=== PATIENT | male | born 1960 | race Caucasian/White ===

== ENCOUNTER 2018-06-15 21:43 | Emergency (ER) | payer MEDICARE ==
--- NOTE | 2018-06-15 22:17 | EDM.PDOC ---
ED HPI GENERAL MEDICAL PROBLEM - General Chief Complaint: Neck Problem Stated Complaint: NECK PAIN Time Seen by Provider: 06/15/18 22:14 - History of Present Illness INITIAL COMMENTS - FREE TEXT/NARRATIVE: HISTORY AND PHYSICAL: History of present illness: Patient's a 58-year-old white male history chronic back pain who presents with a concern of prescription request he states he's had neck pain is worse with driving and at times travel he was recently prescribed Vicodin 2 weeks prior and has run out he is from out of town and has no local doctor is been no numbness weakness or new neurological signs or symptoms patient has had prior cervicals spine surgery and has recently had an MRI that verified stability as it relates to a titanium plate placed with prior surgery Review of systems: As per history of present illness and below otherwise all systems reviewed and negative. Past medical history: As per history of present illness and as reviewed below otherwise noncontributory. Surgical history: As per history of present illness and as reviewed below otherwise noncontributory. Social history: No reported history of drug or alcohol abuse. Family history: As per history of present illness and as reviewed below otherwise noncontributory. Physical exam: HEENT: Atraumatic, normocephalic, pupils reactive, negative for conjunctival pallor or scleral icterus, mucous membranes moist, throat clear, neck without localized tenderness no vertebral body tenderness no cervical radicular findings , trachea midline. Lungs: Clear to auscultation, breath sounds equal bilaterally, chest nontender. Heart: S1S2, regular, negative for clicks, rubs, or JVD. Abdomen: Soft, nondistended, nontender. Negative for masses or hepatosplenomegaly. Negative for costovertebral tenderness. Pelvis: Stable nontender. Genitourinary: Deferred. Rectal: Deferred. Extremities: Atraumatic, negative for cords or calf pain. Neurovascular unremarkable. Neuro: Awake, alert, oriented. Cranial nerves II through XII unremarkable. Cerebellum unremarkable. Motor and sensory unremarkable throughout. Exam nonfocal. Diagnostics: None Therapeutics: None Impression: 1 chronic neck pain Definitive disposition and diagnosis as appropriate pending reevaluation and review of above. - Related Data Allergies Allergy/AdvReac Type Severity Reaction Status Date / Time No Known Allergies Allergy Verified 06/15/18 21:56 Home Meds: Home Meds Warfarin [Coumadin] 0 mg PO DAILY 06/15/18 [History] ED ROS GENERAL - Review of Systems Review Of Systems: ROS reveals no pertinent complaints other than HPI. ED EXAM, GENERAL - Physical Exam Exam: See Below (See dictation) Departure - Departure Time of Disposition: 22:16 Disposition: Home, Self-Care 01 Condition: Good Clinical Impression: Chronic neck pain - Discharge Information *PRESCRIPTION DRUG MONITORING PROGRAM REVIEWED*: Not Applicable *COPY OF PRESCRIPTION DRUG MONITORING REPORT IN PATIENT ALEAH: Not Applicable Referrals: PCP,None [Primary Care Provider] - Additional Instructions: The following information is given to patients seen in the emergency department who are being discharged to home. This information is to outline your options for follow-up care. We provide all patients seen in our emergency department with a follow-up referral. The need for follow-up, as well as the timing and circumstances, are variable depending upon the specifics of your emergency department visit. If you don't have a primary care physician on staff, we will provide you with a referral. We always advise you to contact your personal physician following an emergency department visit to inform them of the circumstance of the visit and for follow-up with them and/or the need for any referrals to a consulting specialist. The emergency department will also refer you to a specialist when appropriate. This referral assures that you have the opportunity for followup care with a specialist. All of these measure are taken in an effort to provide you with optimal care, which includes your followup. Under all circumstances we always encourage you to contact your private physician who remains a resource for coordinating your care. When calling for followup care, please make the office aware that this follow-up is from your recent emergency room visit. If for any reason you are refused follow-up, please contact the [facility] emergency department at and asked to speak to the emergency department charge nurse. [facility] Replaced by [facility] [address] [place] [id number] Follow-up primary care and/or clinic above Motrin/Tylenol as directed return as needed as discussed
== END 2018-06-15 22:25 | disposition home or self-care (01) ==
LOC: MW.ED 21:43
DX: G89.29 Other chronic pain (principal); M54.2 Cervicalgia
CPT/HCPCS: 99282; 99283

== ENCOUNTER 2019-04-20 16:38 | Inpatient (IN) | payer MEDICARE ==
[2019-04-20] MEDS ORDERED: Sodium Chloride 0.9% 1,000 ML IV ONE (16:53)
--- NOTE | 2019-04-20 16:55 | EDM.PDOC ---
ED HPI GENERAL MEDICAL PROBLEM - General Chief Complaint: Cardiovascular Problem Stated Complaint: POSSIBLE STROKE Time Seen by Provider: 04/20/19 16:55 Source of Information: Reports: Patient - History of Present Illness INITIAL COMMENTS - FREE TEXT/NARRATIVE: HISTORY AND PHYSICAL: History of present illness: [Patient with history of stroke presents with chest pain intermittently for 2 days, on arrival blood pressure is noted to be elevated as well as A. fib with RVR no fever nausea vomiting chills sweats no current chest pain headache dizziness palpitation no bowel or urine symptoms ] Review of systems: As per history of present illness and below otherwise all systems reviewed and negative. Past medical history: As per history of present illness and as reviewed below otherwise noncontributory. Surgical history: As per history of present illness and as reviewed below otherwise noncontributory. Social history: No reported history of drug or alcohol abuse. Family history: As per history of present illness and as reviewed below otherwise noncontributory. Physical exam: HEENT: Atraumatic, normocephalic, pupils reactive, negative for conjunctival pallor or scleral icterus, mucous membranes moist, throat clear, neck supple, nontender, trachea midline. Lungs: Clear to auscultation, breath sounds equal bilaterally, chest nontender. Heart: S1S2, regular, negative for clicks, rubs, or JVD. Abdomen: Soft, nondistended, nontender. Negative for masses or hepatosplenomegaly. Negative for costovertebral tenderness. Pelvis: Stable nontender. Genitourinary: Deferred. Rectal: Deferred. Extremities: Atraumatic, negative for cords or calf pain. Neurovascular unremarkable. Neuro: Awake, alert, oriented. Cranial nerves II through XII unremarkable. Cerebellum unremarkable. Motor and sensory unremarkable throughout. Exam nonfocal. Diagnostics: [CBC CMP UA troponin INR EKG Chest 1 view ] Therapeutics: [ normal saline Lopressor 5 mg IV every [address] exam 20 mg IV ] Impression: [ A. fib with RVR Chronic history of baseline ] Definitive disposition and diagnosis as appropriate pending reevaluation and review of above. Chest Pain Score (Numeric/FACES): 5 - Related Data Allergies Allergy/AdvReac Type Severity Reaction Status Date / Time No Known Allergies Allergy Verified 04/20/19 16:57 Home Meds: Home Meds Baclofen 20 mg PO QID PRN 04/20/19 [History] Clopidogrel Bisulfate [Clopidogrel] 75 mg PO DAILY 04/20/19 [History] DULoxetine HCl [Duloxetine HCl] 1 tab PO DAILY 04/20/19 [History] Insulin Detemir [Levemir Flextouch] 16 units SQ BEDTIME 04/20/19 [History] Lisinopril/Hydrochlorothiazide [Lisinopril-Hctz 20-25 mg Tab] 1 tab PO DAILY [History] Metoprolol Tartrate 25 mg PO DAILY 04/20/19 [History] Pantoprazole Sodium 40 mg PO DAILY 04/20/19 [History] Pregabalin [Lyrica] 150 mg PO QID 04/20/19 [History] metFORMIN [Glucophage] 2 tab PO BID 04/20/19 [History] traZODone HCl [Trazodone HCl] 100 mg PO BEDTIME 04/20/19 [History] Past Medical History Cardiovascular History: Reports: Hypertension Neurological History: Reports: CVA Endocrine/Metabolic History: Reports: Diabetes, Type II Social & Family History - Family History Family Medical History: Noncontributory ED ROS GENERAL - Review of Systems Review Of Systems: See Below ED EXAM, GENERAL - Physical Exam Exam: See Below Course - Vital Signs Last Recorded V/S: Last Vital Signs Temp 96.3 F 04/20/19 16:43 Pulse 114 H 04/20/19 18:15 Resp 18 04/20/19 18:15 BP 107/80 04/20/19 18:15 Pulse Ox 95 04/20/19 18:15 - Orders/Labs/Meds Orders: Active Orders 24 hr Category Date Time Status Accu Check [Blood Glucose Check, Bedside] [RC] ONETIME Care 04/20/19 16:55 Active EKG Documentation Completion [RC] STAT Care 04/20/19 16:53 Active CULTURE BLOOD [BC] Stat Lab 04/20/19 16:55 Ordered CULTURE BLOOD [BC] Stat Lab 04/20/19 17:20 Results DRUG SCREEN, URINE [URCHEM] Stat Lab 04/20/19 17:37 Ordered UA RFX NORMA AND CULT IF INDIC [URIN] Stat Lab 04/20/19 16:53 Ordered Sodium Chloride 0.9% [Normal Saline] 1,000 ml Med 04/20/19 18:15 Active IV ASDIRECTED Blood Culture x2 Reflex Set [OM.PC] Stat Oth 04/20/19 16:55 Ordered Medication Orders Sodium Chloride (Normal Saline) 1,000 mls @ 125 mls/hr IV ASDIRECTED CHEKO Last Admin: 04/20/19 18:19 Dose: 125 mls/hr Labs: Laboratory Tests 04/20/19 04/20/19 04/20/19 Range/Units 17:03 17:03 17:03 WBC 17.07 H (4.0-11.0) K/uL RBC 4.52 (4.50-5.90) M/uL Hgb 14.3 (13.0-17.0) g/dL Hct 44.7 (38.0-50.0) % MCV 98.9 H (80.0-98.0) fL MCH 31.6 (27.0-32.0) pg MCHC 32.0 (31.0-37.0) g/dL RDW Std Deviation 53.7 (28.0-62.0) fl RDW Coeff of Dennis 15 (11.0-15.0) % Plt Count 300 (150-400) K/uL MPV 11.50 (7.40-12.00) fL Neut % (Auto) 72.9 (48.0-80.0) % Lymph % (Auto) 17.9 (16.0-40.0) % [place] % (Auto) 7.6 (0.0-15.0) % Eos % (Auto) 1.5 (0.0-7.0) % Baso % (Auto) 0.1 (0.0-1.5) % Neut # (Auto) 12.4 H (1.4-5.7) K/uL Lymph # (Auto) 3.1 H (0.6-2.4) K/uL [place] # (Auto) 1.3 H (0.0-0.8) K/uL Eos # (Auto) 0.3 (0.0-0.7) K/uL Baso # (Auto) 0.0 (0.0-0.1) K/uL Nucleated RBC % 0.0 /100WBC Nucleated RBCs # 0 K/uL INR 1.03 Sodium 139 (136-148) mmol/L Potassium 3.5 (3.5-5.1) mmol/L Chloride 103 (98-107) mmol/L Carbon Dioxide 24.4 (21.0-32.0) mmol/L BUN 18 (7.0-18.0) mg/dL Creatinine 1.2 (0.8-1.3) mg/dL Est Cr Clr Drug Dosing 73.98 mL/min Estimated GFR (MDRD) > 60.0 ml/min Glucose 272 H (74-106) mg/dL Calcium 7.9 L (8.5-10.1) mg/dL Total Bilirubin 0.4 (0.2-1.0) mg/dL AST 40 H (15-37) IU/L ALT 71 H (14-63) IU/L Alkaline Phosphatase 79 (46-116) U/L Creatine Kinase 220 (26-308) U/L Troponin I < 0.050 (0.000-0.056) ng/mL Total Protein 7.2 (6.4-8.2) g/dL Albumin 3.0 L (3.4-5.0) g/dL Globulin 4.2 H (2.6-4.0) g/dL Albumin/Globulin Ratio 0.7 L (0.9-1.6) Meds: Medications Generic Name Dose Route Start Last Admin Trade Name Freq PRN Reason Stop Dose Admin Sodium Chloride 1,000 mls @ 125 mls/hr 04/20/19 18:15 04/20/19 18:19 Normal Saline IV 125 mls/hr ASDIRECTED CHEKO Administration Discontinued Medications Generic Name Dose Route Start Last Admin Trade Name Freq PRN Reason Stop Dose Admin Diltiazem HCl 20 mg 04/20/19 17:23 04/20/19 17:30 Diltiazem IVPUSH 04/20/19 17:24 20 mg ONETIME ONE Administration Diltiazem HCl Confirm 04/20/19 17:25 04/20/19 17:36 Diltiazem Administered 04/20/19 17:26 Not Given Dose 25 mg .ROUTE .STK-MED ONE Sodium Chloride 1,000 mls @ 999 mls/hr 04/20/19 16:53 04/20/19 17:07 Normal Saline IV 04/20/19 17:53 999 mls/hr STAT ONE Administration Insulin Human Regular 5 unit 04/20/19 18:26 Novolin R SUBCUT 04/20/19 18:27 NOW STA Protocol Metoprolol Tartrate 5 mg 04/20/19 17:00 04/20/19 17:15 Lopressor IVPUSH 04/20/19 17:11 5 mg Q5M CHEKO Administration Departure - Departure Time of Disposition: 18:29 Disposition: Refer to Observation Condition: Fair Clinical Impression: Atrial fibrillation with RVR Referrals: PCP,None [Primary Care Provider] - Forms: ED Department Discharge - My Orders Last 24 Hours: My Active Orders 04/20/19 16:53 EKG Documentation Completion [RC] STAT UA RFX NORMA AND CULT IF INDIC [URIN] Stat 04/20/19 16:55 Accu Check [Blood Glucose Check, Bedside] [RC] ONETIME CULTURE BLOOD [BC] Stat Blood Culture x2 Reflex Set [OM.PC] Stat 04/20/19 17:20 CULTURE BLOOD [BC] Stat 04/20/19 17:37 DRUG SCREEN, URINE [URCHEM] Stat 04/20/19 18:15 Sodium Chloride 0.9% [Normal Saline] 1,000 ml IV ASDIRECTED - Assessment/Plan Last 24 Hours: My Active Orders 04/20/19 16:53 EKG Documentation Completion [RC] STAT UA RFX NORMA AND CULT IF INDIC [URIN] Stat 04/20/19 16:55 Accu Check [Blood Glucose Check, Bedside] [RC] ONETIME CULTURE BLOOD [BC] Stat Blood Culture x2 Reflex Set [OM.PC] Stat 04/20/19 17:20 CULTURE BLOOD [BC] Stat 04/20/19 17:37 DRUG SCREEN, URINE [URCHEM] Stat 04/20/19 18:15 Sodium Chloride 0.9% [Normal Saline] 1,000 ml IV ASDIRECTED
[2019-04-20] MEDS: Metoprolol Tartrate 5 MG/5 ML SDV IVPUSH SCH ×3 (17:07→21:08)
[2019-04-20] MEDS ORDERED: Diltiazem 25 MG/5 ML SDV IVPUSH ONE ×2 (17:23→18:54)
--- NOTE | 2019-04-20 17:24 | CR ---
HISTORY: Chest pain and shortness of breath. TECHNIQUE: One view of the chest. COMPARISON: No prior. FINDINGS: There is no acute lung infiltrate or pulmonary edema. No pneumothorax or pleural effusion. Cardiac size within normal limits. Prior cervical fusion. IMPRESSION: No acute disease. Dictated by Harry Kowalski MD @ 04/20/2019 5:23:03 PM Dictated by: Harry Kowalski MD @ 04/20/2019 17:23:09 (Electronically Signed)
[2019-04-20] MEDS ORDERED: Diltiazem 25 MG/5 ML SDV ONE (17:25)
[2019-04-20 18:01] LABS: CHLORIDE,CL 103 mmol/L (98-107); SODIUM,NA 139 mmol/L (136-148)
[2019-04-20] MEDS: Sodium Chloride 0.9% 1,000 ML IV SCH (18:19)
[2019-04-20] MEDS ORDERED: Insulin Regular, Human 100 Units/ML 10 ML Vial SUBCUT STA (18:26)
[2019-04-20] MEDS ORDERED: Pantoprazole 40 MG Tab.CR PO SCH (21:00)
[2019-04-20] MEDS: Insulin Detemir 100 Units/ML 3 ML Pen SUBCUT SCH (21:45)
[2019-04-20] MEDS: Pregabalin 75 MG Cap PO SCH (21:46)
[2019-04-20] MEDS: Baclofen 10 MG Tab PO PRN (21:46)
[2019-04-20] MEDS: atorvaSTATin 40 MG Tab PO SCH (21:46)
[2019-04-20] MEDS: traZODone 50 MG Tab PO SCH (21:47)
[2019-04-20] MEDS: Pantoprazole 40 MG Tab.CR PO SCH (22:06)
[2019-04-20] MEDS: Apixaban 5 MG Tab PO SCH (23:11)
[2019-04-20] MEDS: Diltiazem 25 MG/5 ML SDV IVPUSH PRN (23:12)
--- NOTE | 2019-04-20 23:43 | PCM.HP ---
H&P History of Present Illness - General Date of Service: 04/20/19 Admit Problem/Dx: Admission Diagnosis/Problem Admission Diagnosis/Problem Atrial fibrillation - History of Present Illness Initial Comments - Free Text/Narative: 58 yo male with past medical history of CVA, NM, and DM who presents with chest pain for past two days. Patient reports chest pain as a burn that worsens when he takes a deep breath. He reports a chronic cough that is unchanged for past year. He denies any fevers. He reports palpitations, shortness of breath, and lightheadedness. Family reported that he look pale at home. He smokes tobacco and marijuana. In the ED he was noted to be in atrial fibrillaiton with heart rate of 150s. It did slow down initially to 100s with IV diltiazem. Patient denies any history of atrial fibrillation but was recently switched to Eliquis this month from plavix but is not sure why. He reports three strokes this past year. Chest Pain Score (Numeric/FACES): 5 - Related Data Allergies/Adverse Reactions: Allergies Allergy/AdvReac Type Severity Reaction Status Date / Time bee venom protein (honey bee) Allergy Anaphylactic Verified 04/20/19 20:00 Shock Home Medications: Home Meds Apixaban [Eliquis] 04/20/19 [History] Baclofen 20 mg PO QID PRN 04/20/19 [History] Clopidogrel Bisulfate [Clopidogrel] 75 mg PO DAILY 04/20/19 [History] DULoxetine HCl [Duloxetine HCl] 1 tab PO DAILY 04/20/19 [History] Insulin Detemir [Levemir Flextouch] 16 units SQ BEDTIME 04/20/19 [History] Lisinopril/Hydrochlorothiazide [Lisinopril-Hctz 20-25 mg Tab] 1 tab PO DAILY [History] Metoprolol Tartrate 25 mg PO DAILY 04/20/19 [History] Pantoprazole Sodium 40 mg PO DAILY 04/20/19 [History] Pregabalin [Lyrica] 150 mg PO QID 04/20/19 [History] metFORMIN [Glucophage] 2 tab PO BID 04/20/19 [History] traZODone HCl [Trazodone HCl] 100 mg PO BEDTIME 04/20/19 [History] Past Medical History Cardiovascular History: Reports: Blood Clots/VTE/DVT, CAD, Hypertension Respiratory History: Reports: COPD Gastrointestinal History: Reports: Bowel Obstruction, GERD, Other (See Below) Other Gastrointestinal History: Intestinal rupture Musculoskeletal History: Reports: Back Pain, Chronic, Fracture Neurological History: Reports: CVA Other Neuro History: 3 strokes in the last 1.5 years Psychiatric History: Reports: Anxiety, Depression Endocrine/Metabolic History: Reports: Diabetes, Type II - Infectious Disease History Infectious Disease History: Reports: Chicken Pox - Past Surgical History Cardiovascular Surgical History: Reports: None GI Surgical History: Reports: Colonoscopy, Small Bowel Musculoskeletal Surgical History: Reports: Other (See Below) Other Musculoskeletal Surgeries/Procedures:: 6 back surgeries, 2 neck surgeries , titanium plate in neck, titanium plate in lower back Social & Family History - Family History Family Medical History: Noncontributory - Tobacco Use Smoking Status *Q: Current Every Day Smoker Years of Tobacco use: 48 Packs/Tins Daily: 1 Second Hand Smoke Exposure: No - Caffeine Use Caffeine Use: Reports: Coffee, Soda - Recreational Drug Use Recreational Drug Use: Yes Drug Use in Last 12 Months: Yes Recreational Drug Type: Reports: Marijuana/Hashish Recreational Drug Use Frequency: Daily H&P Review of Systems - Review of Systems: Review Of Systems: ROS reveals no pertinent complaints other than HPI. Exam - Exam Exam: See Below - Vital Signs Vital Signs: Last Vital Signs Temp 35.8 C 04/20/19 19:37 Pulse 65 04/20/19 19:37 Resp 18 04/20/19 19:37 BP 107/70 04/20/19 19:37 Pulse Ox 94 L 04/20/19 22:33 Weight: 106.141 kg - Exam General: Alert, Oriented HEENT: Mucosa Moist & [place] Lungs: Clear to Auscultation, Normal Respiratory Effort Cardiovascular: Irregular Rhythm, Tachycardia GI/Abdominal Exam: Soft, Non-Tender Extremities: Normal Inspection, Non-Tender, No Pedal Edema Skin: Warm, Dry, Intact Neurological: Cranial Nerves Intact. No: Focal Deficit - Patient Data Lab Results Last 24 hrs: Laboratory Results - last 24 hr 04/20/19 04/20/19 04/20/19 Range/Units 17:03 17:03 17:03 WBC 17.07 H (4.0-11.0) K/uL RBC 4.52 (4.50-5.90) M/uL Hgb 14.3 (13.0-17.0) g/dL Hct 44.7 (38.0-50.0) % MCV 98.9 H (80.0-98.0) fL MCH 31.6 (27.0-32.0) pg MCHC 32.0 (31.0-37.0) g/dL RDW Std Deviation 53.7 (28.0-62.0) fl RDW Coeff of Dennis 15 (11.0-15.0) % Plt Count 300 (150-400) K/uL MPV 11.50 (7.40-12.00) fL Neut % (Auto) 72.9 (48.0-80.0) % Lymph % (Auto) 17.9 (16.0-40.0) % [place] % (Auto) 7.6 (0.0-15.0) % Eos % (Auto) 1.5 (0.0-7.0) % Baso % (Auto) 0.1 (0.0-1.5) % Neut # (Auto) 12.4 H (1.4-5.7) K/uL Lymph # (Auto) 3.1 H (0.6-2.4) K/uL [place] # (Auto) 1.3 H (0.0-0.8) K/uL Eos # (Auto) 0.3 (0.0-0.7) K/uL Baso # (Auto) 0.0 (0.0-0.1) K/uL Nucleated RBC % 0.0 /100WBC Nucleated RBCs # 0 K/uL INR 1.03 Sodium 139 (136-148) mmol/L Potassium 3.5 (3.5-5.1) mmol/L Chloride 103 (98-107) mmol/L Carbon Dioxide 24.4 (21.0-32.0) mmol/L BUN 18 (7.0-18.0) mg/dL Creatinine 1.2 (0.8-1.3) mg/dL Est Cr Clr Drug Dosing 73.98 mL/min Estimated GFR (MDRD) > 60.0 ml/min Glucose 272 H (74-106) mg/dL POC Glucose (60-110) mg/dL Calcium 7.9 L (8.5-10.1) mg/dL Total Bilirubin 0.4 (0.2-1.0) mg/dL AST 40 H (15-37) IU/L ALT 71 H (14-63) IU/L Alkaline Phosphatase 79 (46-116) U/L Creatine Kinase 220 (26-308) U/L Troponin I < 0.050 (0.000-0.056) ng/mL Total Protein 7.2 (6.4-8.2) g/dL Albumin 3.0 L (3.4-5.0) g/dL Globulin 4.2 H (2.6-4.0) g/dL Albumin/Globulin Ratio 0.7 L (0.9-1.6) 04/20/19 04/20/19 Range/Units 18:33 20:55 WBC (4.0-11.0) K/uL RBC (4.50-5.90) M/uL Hgb (13.0-17.0) g/dL Hct (38.0-50.0) % MCV (80.0-98.0) fL MCH (27.0-32.0) pg MCHC (31.0-37.0) g/dL RDW Std Deviation (28.0-62.0) fl RDW Coeff of Dennis (11.0-15.0) % Plt Count (150-400) K/uL MPV (7.40-12.00) fL Neut % (Auto) (48.0-80.0) % Lymph % (Auto) (16.0-40.0) % [place] % (Auto) (0.0-15.0) % Eos % (Auto) (0.0-7.0) % Baso % (Auto) (0.0-1.5) % Neut # (Auto) (1.4-5.7) K/uL Lymph # (Auto) (0.6-2.4) K/uL [place] # (Auto) (0.0-0.8) K/uL Eos # (Auto) (0.0-0.7) K/uL Baso # (Auto) (0.0-0.1) K/uL Nucleated RBC % /100WBC Nucleated RBCs # K/uL INR Sodium (136-148) mmol/L Potassium (3.5-5.1) mmol/L Chloride (98-107) mmol/L Carbon Dioxide (21.0-32.0) mmol/L BUN (7.0-18.0) mg/dL Creatinine (0.8-1.3) mg/dL Est Cr Clr Drug Dosing mL/min Estimated GFR (MDRD) ml/min Glucose (74-106) mg/dL POC Glucose 182 H 113 H (60-110) mg/dL Calcium (8.5-10.1) mg/dL Total Bilirubin (0.2-1.0) mg/dL AST (15-37) IU/L ALT (14-63) IU/L Alkaline Phosphatase (46-116) U/L Creatine Kinase (26-308) U/L Troponin I (0.000-0.056) ng/mL Total Protein (6.4-8.2) g/dL Albumin (3.4-5.0) g/dL Globulin (2.6-4.0) g/dL Albumin/Globulin Ratio (0.9-1.6) Result Diagrams: 04/22/19 05:40 04/22/19 05:40 [place]am Results Last 24 hrs: Microbiology 04/20/19 17:20 Anaerobic Blood Culture - Final Blood - Venous Problem List Initiated/Reviewed/Updated: Yes Orders Last 24hrs: Active Orders 24 hr Category Date Time Status Admission Status [Patient Status] [ADT] Stat ADT 04/20/19 18:31 Active Accu Check [Blood Glucose Check, Bedside] [RC] TIDMEALS Care 04/20/19 19:53 Active Cardiac Monitoring [RC] . DIRECTED Care 04/20/19 23:22 Active EKG Documentation Completion [RC] STAT Care 04/20/19 16:53 Active Oxygen Therapy [RC] ASDIRECTED Care 04/20/19 22:33 Active ADA Diabetic [[place] [employer] Diet] [DIET Diet 04/21/19 Breakfast Active ] CULTURE BLOOD [BC] Stat Lab 04/20/19 17:20 Results CULTURE BLOOD [BC] Stat Lab 04/20/19 18:27 Received DRUG SCREEN, URINE [URCHEM] Stat Lab 04/20/19 17:37 Ordered UA RFX PAYAM AND CULT IF INDIC [URIN] Stat Lab 04/20/19 16:53 Ordered Apixaban [Eliquis] Med 04/20/19 23:00 Active 5 mg PO BID Baclofen [Lioresal] Med 04/20/19 20:34 Active 20 mg PO QID PRN DULoxetine [Cymbalta] Med 04/21/19 09:00 Active 60 mg PO DAILY Diltiazem Med 04/20/19 22:07 Active 10 mg IVPUSH Q3HR PRN Diltiazem 125 mg Med 04/20/19 23:45 Ordered Sodium Chloride 0.9% [Normal Saline] 100 ml IV NOW Insulin Aspart [NovoLOG] Med 04/21/19 07:30 Active See Protocol SUBCUT TIDAC Insulin Detemir [Levemir] Med 04/20/19 21:00 Active 16 unit SUBCUT BEDTIME Metoprolol Succinate [Toprol XL] Med 04/21/19 09:00 Active 50 mg PO DAILY Pantoprazole [ProTONIX] Med 04/20/19 21:45 Active 40 mg PO DAILY Pregabalin [Lyrica] Med 04/20/19 22:00 Active 150 mg PO QID QUEtiapine [SEROquel] Med 04/20/19 21:00 Active 50 mg PO BEDTIME Sodium Chloride 0.9% [Normal Saline] 1,000 ml Med 04/20/19 18:15 Active IV ASDIRECTED atorvaSTATin [Lipitor] Med 04/20/19 21:00 Active 80 mg PO BEDTIME metFORMIN [Glucophage] Med 04/21/19 08:00 Active 1,000 mg PO BIDMEALS traZODone Med 04/20/19 21:00 Active 100 mg PO BEDTIME Blood Culture x2 Reflex Set [OM.PC] Stat Oth 04/20/19 16:55 Ordered Medication Orders Apixaban (Eliquis) 5 mg PO BID [facility] Last Admin: 04/20/19 23:11 Dose: 5 mg Atorvastatin Calcium (Lipitor) 80 mg PO BEDTIME CHEKO Last Admin: 04/20/19 21:46 Dose: 80 mg Baclofen (Lioresal) 20 mg PO QID PRN PRN Reason: Muscle Spasm Last Admin: 04/20/19 21:46 Dose: 20 mg Diltiazem HCl (Diltiazem) 10 mg IVPUSH Q3HR PRN PRN Reason: for heart rate >100 Last Admin: 04/20/19 23:12 Dose: 10 mg Duloxetine HCl (Cymbalta) 60 mg PO DAILY [facility] Sodium Chloride (Normal Saline) 1,000 mls @ 125 mls/hr IV ASDIRECTED [facility] Last Admin: 04/20/19 18:19 Dose: 125 mls/hr Diltiazem HCl 125 mg/ Sodium (Chloride) 125 mls @ 5 mls/hr IV NOW CHEKO; Protocol Insulin Aspart (Novolog) 0 unit SUBCUT TIDAC [facility]; Protocol Insulin Detemir (Levemir) 16 unit SUBCUT BEDTIME [facility] Last Admin: 04/20/19 21:45 Dose: 16 units Metformin HCl (Glucophage) 1,000 mg PO BIDMEALS [facility] Metoprolol Succinate (Toprol Xl) 50 mg PO DAILY [facility] Pantoprazole Sodium (Protonix) 40 mg PO DAILY [facility] Last Admin: 04/20/19 22:06 Dose: 40 mg Pregabalin (Lyrica) 150 mg PO QID [facility] Last Admin: 04/20/19 21:46 Dose: 150 mg Quetiapine Fumarate (Seroquel) 50 mg PO BEDTIME [facility] Last Admin: 04/20/19 23:11 Dose: 50 mg Trazodone HCl (Trazodone) 100 mg PO BEDTIME [facility] Last Admin: 04/20/19 21:47 Dose: 100 mg Assessment/Plan Comment:: 58 yo male admitted with atrial fibrillation with RVR. We will place on diltiazem drip. Will resume his metoprolol which he is noncompliant with at home. We will also trend cardiac enzymes. Patient has an unexplained white count but does not appear infected. UA has been ordered.
[2019-04-20] MEDS ORDERED: Diltiazem 100 MG in Sodium Chloride 0.9% 100 ML IV SCH (23:45)
[2019-04-21] MEDS: Pregabalin 75 MG Cap PO SCH ×4 (01:03→17:50)
[2019-04-21 07:08] LABS: CHLORIDE,CL 106 mmol/L (98-107); SODIUM,NA 141 mmol/L (136-148)
[2019-04-21] MEDS: Insulin Aspart 100 Units/ML 3 ML Pen SUBCUT SCH ×3 (07:59→17:39)
[2019-04-21] MEDS ORDERED: metFORMIN 500 MG Tab.ER PO SCH (08:00)
[2019-04-21] MEDS: metFORMIN 500 MG Tab PO SCH ×2 (08:00→17:53)
[2019-04-21] MEDS ORDERED: metFORMIN 500 MG Tab PO SCH (08:00)
[2019-04-21] MEDS: Apixaban 5 MG Tab PO SCH ×2 (08:00→20:09)
[2019-04-21] MEDS: DULoxetine 60 MG Cap PO SCH (08:00)
[2019-04-21] MEDS: Pantoprazole 40 MG Tab.CR PO SCH (08:05)
[2019-04-21] MEDS ORDERED: Metoprolol Tartrate 25 MG Tab PO SCH (09:00)
[2019-04-21] MEDS ORDERED: Lisinopril/Hydrochlorothiazide 10-12.5 MG Tab PO SCH (09:00)
[2019-04-21] MEDS ORDERED: Metoprolol Succinate 50 MG Tab.ER PO SCH ×2 (09:00→21:00)
[2019-04-21] MEDS ORDERED: Nicotine Polacrilex 4 MG Gum CHEW PRN (09:15)
[2019-04-21] MEDS ORDERED: Digoxin 500 MCG/2 ML Amp IVPUSH ONE ×3 (10:37→21:00)
--- NOTE | 2019-04-21 10:38 | PCM.PN ---
- General Info Date of Service: 04/21/19 - Review of Systems Systems Review Comment:: patient feeling better. - Patient Data Vitals - Most Recent: Last Vital Signs Temp 36.5 C 04/21/19 08:00 Pulse 107 H 04/21/19 10:00 Resp 13 04/21/19 10:00 BP 110/86 04/21/19 10:00 Pulse Ox 94 L 04/21/19 10:00 Weight - Most Recent: 104.6 kg I&O - Last 24 Hours: Intake & Output 04/20/19 04/21/19 04/21/19 22:59 06:59 14:59 Intake Total 120 1506 Output Total 200 Balance 120 1306 Lab Results Last 24 Hours: Laboratory Results - last 24 hr 04/20/19 04/20/19 04/20/19 Range/Units 00:00 00:00 00:36 WBC (4.0-11.0) K/uL RBC (4.50-5.90) M/uL Hgb (13.0-17.0) g/dL Hct (38.0-50.0) % MCV (80.0-98.0) fL MCH (27.0-32.0) pg MCHC (31.0-37.0) g/dL RDW Std Deviation (28.0-62.0) fl RDW Coeff of [place] (11.0-15.0) % Plt Count (150-400) K/uL MPV (7.40-12.00) fL Neut % (Auto) (48.0-80.0) % Lymph % (Auto) (16.0-40.0) % [place] % (Auto) (0.0-15.0) % Eos % (Auto) (0.0-7.0) % Baso % (Auto) (0.0-1.5) % Neut # (Auto) (1.4-5.7) K/uL Lymph # (Auto) (0.6-2.4) K/uL [place] # (Auto) (0.0-0.8) K/uL Eos # (Auto) (0.0-0.7) K/uL Baso # (Auto) (0.0-0.1) K/uL Nucleated RBC % /100WBC Nucleated RBCs # K/uL INR Sodium (136-148) mmol/L Potassium (3.5-5.1) mmol/L Chloride (98-107) mmol/L Carbon Dioxide (21.0-32.0) mmol/L BUN (7.0-18.0) mg/dL Creatinine (0.8-1.3) mg/dL Est Cr Clr Drug Dosing mL/min Estimated GFR (MDRD) ml/min Glucose (74-106) mg/dL POC Glucose (60-110) mg/dL Calcium (8.5-10.1) mg/dL Magnesium (1.8-2.4) mg/dL Total Bilirubin (0.2-1.0) mg/dL AST (15-37) IU/L ALT (14-63) IU/L Alkaline Phosphatase (46-116) U/L Creatine Kinase (26-308) U/L Troponin I < 0.050 (0.000-0.056) ng/mL Total Protein (6.4-8.2) g/dL Albumin (3.4-5.0) g/dL Globulin (2.6-4.0) g/dL Albumin/Globulin Ratio (0.9-1.6) Urine Color YELLOW Urine Appearance CLEAR Urine pH 6.0 (5.0-8.0) Ur Specific [place] >= 1.030 (1.001-1.035) Urine Protein 100 H (NEGATIVE) mg/dL Urine Glucose (UA) NEGATIVE (NEGATIVE) mg/dL Urine Ketones NEGATIVE (NEGATIVE) mg/dL Urine Occult Blood NEGATIVE (NEGATIVE) Urine Nitrite NEGATIVE (NEGATIVE) Urine Bilirubin NEGATIVE (NEGATIVE) Urine Urobilinogen 4.0 H (<2.0) EU/dL Ur Leukocyte Esterase NEGATIVE (NEGATIVE) Urine RBC 0-1 (0-2/HPF) Urine WBC 0-1 (0-5/HPF) Ur Epithelial Cells RARE (NONE-FEW) Urine Bacteria RARE (NEGATIVE) Urine Opiates Screen NEGATIVE (NEGATIVE) Ur Oxycodone Screen NEGATIVE (NEGATIVE) Urine Methadone Screen NEGATIVE (NEGATIVE) Ur Barbiturates Screen NEGATIVE (NEGATIVE) Ur Phencyclidine Scrn NEGATIVE (NEGATIVE) Ur Amphetamine Screen NEGATIVE (NEGATIVE) U Methamphetamines Scrn POSITIVE (NEGATIVE) U Benzodiazepines Scrn NEGATIVE (NEGATIVE) U Cocaine Metab Screen NEGATIVE (NEGATIVE) U Marijuana (THC) Screen POSITIVE (NEGATIVE) 04/20/19 04/20/19 04/20/19 Range/Units 17:03 17:03 17:03 WBC 17.07 H (4.0-11.0) K/uL RBC 4.52 (4.50-5.90) M/uL Hgb 14.3 (13.0-17.0) g/dL Hct 44.7 (38.0-50.0) % MCV 98.9 H (80.0-98.0) fL MCH 31.6 (27.0-32.0) pg MCHC 32.0 (31.0-37.0) g/dL RDW Std Deviation 53.7 (28.0-62.0) fl RDW Coeff of [place] 15 (11.0-15.0) % Plt Count 300 (150-400) K/uL MPV 11.50 (7.40-12.00) fL Neut % (Auto) 72.9 (48.0-80.0) % Lymph % (Auto) 17.9 (16.0-40.0) % [place] % (Auto) 7.6 (0.0-15.0) % Eos % (Auto) 1.5 (0.0-7.0) % Baso % (Auto) 0.1 (0.0-1.5) % Neut # (Auto) 12.4 H (1.4-5.7) K/uL Lymph # (Auto) 3.1 H (0.6-2.4) K/uL [place] # (Auto) 1.3 H (0.0-0.8) K/uL Eos # (Auto) 0.3 (0.0-0.7) K/uL Baso # (Auto) 0.0 (0.0-0.1) K/uL Nucleated RBC % 0.0 /100WBC Nucleated RBCs # 0 K/uL INR 1.03 Sodium 139 (136-148) mmol/L Potassium 3.5 (3.5-5.1) mmol/L Chloride 103 (98-107) mmol/L Carbon Dioxide 24.4 (21.0-32.0) mmol/L BUN 18 (7.0-18.0) mg/dL Creatinine 1.2 (0.8-1.3) mg/dL Est Cr Clr Drug Dosing 73.98 mL/min Estimated GFR (MDRD) > 60.0 ml/min Glucose 272 H (74-106) mg/dL POC Glucose (60-110) mg/dL Calcium 7.9 L (8.5-10.1) mg/dL Magnesium (1.8-2.4) mg/dL Total Bilirubin 0.4 (0.2-1.0) mg/dL AST 40 H (15-37) IU/L ALT 71 H (14-63) IU/L Alkaline Phosphatase 79 (46-116) U/L Creatine Kinase 220 (26-308) U/L Troponin I < 0.050 (0.000-0.056) ng/mL Total Protein 7.2 (6.4-8.2) g/dL Albumin 3.0 L (3.4-5.0) g/dL Globulin 4.2 H (2.6-4.0) g/dL Albumin/Globulin Ratio 0.7 L (0.9-1.6) Urine Color Urine Appearance Urine pH (5.0-8.0) Ur Specific [place] (1.001-1.035) Urine Protein (NEGATIVE) mg/dL Urine Glucose (UA) (NEGATIVE) mg/dL Urine Ketones (NEGATIVE) mg/dL Urine Occult Blood (NEGATIVE) Urine Nitrite (NEGATIVE) Urine Bilirubin (NEGATIVE) Urine Urobilinogen (<2.0) EU/dL Ur Leukocyte Esterase (NEGATIVE) Urine RBC (0-2/HPF) Urine WBC (0-5/HPF) Ur Epithelial Cells (NONE-FEW) Urine Bacteria (NEGATIVE) Urine Opiates Screen (NEGATIVE) Ur Oxycodone Screen (NEGATIVE) Urine Methadone Screen (NEGATIVE) Ur Barbiturates Screen (NEGATIVE) Ur Phencyclidine Scrn (NEGATIVE) Ur Amphetamine Screen (NEGATIVE) U Methamphetamines Scrn (NEGATIVE) U Benzodiazepines Scrn (NEGATIVE) U Cocaine Metab Screen (NEGATIVE) U Marijuana (THC) Screen (NEGATIVE) 04/20/19 04/20/19 04/21/19 Range/Units 18:33 20:55 00:58 WBC (4.0-11.0) K/uL RBC (4.50-5.90) M/uL Hgb (13.0-17.0) g/dL Hct (38.0-50.0) % MCV (80.0-98.0) fL MCH (27.0-32.0) pg MCHC (31.0-37.0) g/dL RDW Std Deviation (28.0-62.0) fl RDW Coeff of [place] (11.0-15.0) % Plt Count (150-400) K/uL MPV (7.40-12.00) fL Neut % (Auto) (48.0-80.0) % Lymph % (Auto) (16.0-40.0) % [place] % (Auto) (0.0-15.0) % Eos % (Auto) (0.0-7.0) % Baso % (Auto) (0.0-1.5) % Neut # (Auto) (1.4-5.7) K/uL Lymph # (Auto) (0.6-2.4) K/uL [place] # (Auto) (0.0-0.8) K/uL Eos # (Auto) (0.0-0.7) K/uL Baso # (Auto) (0.0-0.1) K/uL Nucleated RBC % /100WBC Nucleated RBCs # K/uL INR Sodium (136-148) mmol/L Potassium (3.5-5.1) mmol/L Chloride (98-107) mmol/L Carbon Dioxide (21.0-32.0) mmol/L BUN (7.0-18.0) mg/dL Creatinine (0.8-1.3) mg/dL Est Cr Clr Drug Dosing mL/min Estimated GFR (MDRD) ml/min Glucose (74-106) mg/dL POC Glucose 182 H 113 H 157 H (60-110) mg/dL Calcium (8.5-10.1) mg/dL Magnesium (1.8-2.4) mg/dL Total Bilirubin (0.2-1.0) mg/dL AST (15-37) IU/L ALT (14-63) IU/L Alkaline Phosphatase (46-116) U/L Creatine Kinase (26-308) U/L Troponin I (0.000-0.056) ng/mL Total Protein (6.4-8.2) g/dL Albumin (3.4-5.0) g/dL Globulin (2.6-4.0) g/dL Albumin/Globulin Ratio (0.9-1.6) Urine Color Urine Appearance Urine pH (5.0-8.0) Ur Specific [place] (1.001-1.035) Urine Protein (NEGATIVE) mg/dL Urine Glucose (UA) (NEGATIVE) mg/dL Urine Ketones (NEGATIVE) mg/dL Urine Occult Blood (NEGATIVE) Urine Nitrite (NEGATIVE) Urine Bilirubin (NEGATIVE) Urine Urobilinogen (<2.0) EU/dL Ur Leukocyte Esterase (NEGATIVE) Urine RBC (0-2/HPF) Urine WBC (0-5/HPF) Ur Epithelial Cells (NONE-FEW) Urine Bacteria (NEGATIVE) Urine Opiates Screen (NEGATIVE) Ur Oxycodone Screen (NEGATIVE) Urine Methadone Screen (NEGATIVE) Ur Barbiturates Screen (NEGATIVE) Ur Phencyclidine Scrn (NEGATIVE) Ur Amphetamine Screen (NEGATIVE) U Methamphetamines Scrn (NEGATIVE) U Benzodiazepines Scrn (NEGATIVE) U Cocaine Metab Screen (NEGATIVE) U Marijuana (THC) Screen (NEGATIVE) 04/21/19 04/21/19 04/21/19 Range/Units 06:30 06:30 06:30 WBC 11.78 H (4.0-11.0) K/uL RBC 4.58 (4.50-5.90) M/uL Hgb 14.4 (13.0-17.0) g/dL Hct 44.9 (38.0-50.0) % MCV 98.0 (80.0-98.0) fL MCH 31.4 (27.0-32.0) pg MCHC 32.1 (31.0-37.0) g/dL RDW Std Deviation 54.4 (28.0-62.0) fl RDW Coeff of [place] 15 (11.0-15.0) % Plt Count 181 (150-400) K/uL MPV 11.10 (7.40-12.00) fL Neut % (Auto) (48.0-80.0) % Lymph % (Auto) (16.0-40.0) % [place] % (Auto) (0.0-15.0) % Eos % (Auto) (0.0-7.0) % Baso % (Auto) (0.0-1.5) % Neut # (Auto) (1.4-5.7) K/uL Lymph # (Auto) (0.6-2.4) K/uL [place] # (Auto) (0.0-0.8) K/uL Eos # (Auto) (0.0-0.7) K/uL Baso # (Auto) (0.0-0.1) K/uL Nucleated RBC % 0.0 /100WBC Nucleated RBCs # 0 K/uL INR Sodium 141 (136-148) mmol/L Potassium 4.2 (3.5-5.1) mmol/L Chloride 106 (98-107) mmol/L Carbon Dioxide 25.7 (21.0-32.0) mmol/L BUN 15 (7.0-18.0) mg/dL Creatinine 0.7 L (0.8-1.3) mg/dL Est Cr Clr Drug Dosing 126.83 mL/min Estimated GFR (MDRD) > 60.0 ml/min Glucose 168 H (74-106) mg/dL POC Glucose (60-110) mg/dL Calcium 7.7 L (8.5-10.1) mg/dL Magnesium (1.8-2.4) mg/dL Total Bilirubin 0.4 (0.2-1.0) mg/dL AST 48 H (15-37) IU/L ALT 72 H (14-63) IU/L Alkaline Phosphatase 79 (46-116) U/L Creatine Kinase (26-308) U/L Troponin I < 0.050 (0.000-0.056) ng/mL Total Protein 6.1 L (6.4-8.2) g/dL Albumin 2.9 L (3.4-5.0) g/dL Globulin 3.2 (2.6-4.0) g/dL Albumin/Globulin Ratio 0.9 (0.9-1.6) Urine Color Urine Appearance Urine pH (5.0-8.0) Ur Specific [place] (1.001-1.035) Urine Protein (NEGATIVE) mg/dL Urine Glucose (UA) (NEGATIVE) mg/dL Urine Ketones (NEGATIVE) mg/dL Urine Occult Blood (NEGATIVE) Urine Nitrite (NEGATIVE) Urine Bilirubin (NEGATIVE) Urine Urobilinogen (<2.0) EU/dL Ur Leukocyte Esterase (NEGATIVE) Urine RBC (0-2/HPF) Urine WBC (0-5/HPF) Ur Epithelial Cells (NONE-FEW) Urine Bacteria (NEGATIVE) Urine Opiates Screen (NEGATIVE) Ur Oxycodone Screen (NEGATIVE) Urine Methadone Screen (NEGATIVE) Ur Barbiturates Screen (NEGATIVE) Ur Phencyclidine Scrn (NEGATIVE) Ur Amphetamine Screen (NEGATIVE) U Methamphetamines Scrn (NEGATIVE) U Benzodiazepines Scrn (NEGATIVE) U Cocaine Metab Screen (NEGATIVE) U Marijuana (THC) Screen (NEGATIVE) 04/21/19 04/21/19 Range/Units 06:30 07:46 WBC (4.0-11.0) K/uL RBC (4.50-5.90) M/uL Hgb (13.0-17.0) g/dL Hct (38.0-50.0) % MCV (80.0-98.0) fL MCH (27.0-32.0) pg MCHC (31.0-37.0) g/dL RDW Std Deviation (28.0-62.0) fl RDW Coeff of [place] (11.0-15.0) % Plt Count (150-400) K/uL MPV (7.40-12.00) fL Neut % (Auto) (48.0-80.0) % Lymph % (Auto) (16.0-40.0) % [place] % (Auto) (0.0-15.0) % Eos % (Auto) (0.0-7.0) % Baso % (Auto) (0.0-1.5) % Neut # (Auto) (1.4-5.7) K/uL Lymph # (Auto) (0.6-2.4) K/uL [place] # (Auto) (0.0-0.8) K/uL Eos # (Auto) (0.0-0.7) K/uL Baso # (Auto) (0.0-0.1) K/uL Nucleated RBC % /100WBC Nucleated RBCs # K/uL INR Sodium (136-148) mmol/L Potassium (3.5-5.1) mmol/L Chloride (98-107) mmol/L Carbon Dioxide (21.0-32.0) mmol/L BUN (7.0-18.0) mg/dL Creatinine (0.8-1.3) mg/dL Est Cr Clr Drug Dosing mL/min Estimated GFR (MDRD) ml/min Glucose (74-106) mg/dL POC Glucose 192 H (60-110) mg/dL Calcium (8.5-10.1) mg/dL Magnesium 2.3 (1.8-2.4) mg/dL Total Bilirubin (0.2-1.0) mg/dL AST (15-37) IU/L ALT (14-63) IU/L Alkaline Phosphatase (46-116) U/L Creatine Kinase (26-308) U/L Troponin I (0.000-0.056) ng/mL Total Protein (6.4-8.2) g/dL Albumin (3.4-5.0) g/dL Globulin (2.6-4.0) g/dL Albumin/Globulin Ratio (0.9-1.6) Urine Color Urine Appearance Urine pH (5.0-8.0) Ur Specific [place] (1.001-1.035) Urine Protein (NEGATIVE) mg/dL Urine Glucose (UA) (NEGATIVE) mg/dL Urine Ketones (NEGATIVE) mg/dL Urine Occult Blood (NEGATIVE) Urine Nitrite (NEGATIVE) Urine Bilirubin (NEGATIVE) Urine Urobilinogen (<2.0) EU/dL Ur Leukocyte Esterase (NEGATIVE) Urine RBC (0-2/HPF) Urine WBC (0-5/HPF) Ur Epithelial Cells (NONE-FEW) Urine Bacteria (NEGATIVE) Urine Opiates Screen (NEGATIVE) Ur Oxycodone Screen (NEGATIVE) Urine Methadone Screen (NEGATIVE) Ur Barbiturates Screen (NEGATIVE) Ur Phencyclidine Scrn (NEGATIVE) Ur Amphetamine Screen (NEGATIVE) U Methamphetamines Scrn (NEGATIVE) U Benzodiazepines Scrn (NEGATIVE) U Cocaine Metab Screen (NEGATIVE) U Marijuana (THC) Screen (NEGATIVE) [place] Results Last 24 Hours: Microbiology 04/20/19 17:20 Anaerobic Blood Culture - Final Blood - Venous Med Orders - Current: Current Medications Apixaban (Eliquis) 5 mg PO BID [facility]KO Last Admin: 04/21/19 08:00 Dose: 5 mg Atorvastatin Calcium (Lipitor) 80 mg PO BEDTIME [facility]KO Last Admin: 04/20/19 21:46 Dose: 80 mg Baclofen (Lioresal) 20 mg PO QID PRN PRN Reason: Muscle Spasm Last Admin: 04/20/19 21:46 Dose: 20 mg Diltiazem HCl (Diltiazem) 10 mg IVPUSH Q3HR PRN PRN Reason: for heart rate >100 Last Admin: 04/20/19 23:12 Dose: 10 mg Duloxetine HCl (Cymbalta) 60 mg PO DAILY [facility] Last Admin: 04/21/19 08:00 Dose: 60 mg Sodium Chloride (Normal Saline) 1,000 mls @ 125 mls/hr IV ASDIRECTED [facility] Last Admin: 04/20/19 18:19 Dose: 125 mls/hr Diltiazem HCl 100 mg/ Sodium (Chloride) 100 mls @ 5 mls/hr IV TITRATE [facility]; Protocol Amiodarone HCl/Dextrose (Nexterone In Dextrose 360 Mg/200 Ml) 360 mg in 200 mls @ 16.667 mls/hr IV ASDIRECTED [facility]; Protocol Last Admin: 04/21/19 06:53 Dose: 0.5 mg/min, 16.667 mls/hr Insulin Aspart (Novolog) 0 unit SUBCUT TIDAC [facility]; Protocol Last Admin: 04/21/19 07:59 Dose: 2 units Insulin Detemir (Levemir) 16 unit SUBCUT BEDTIME [facility] Last Admin: 04/20/19 21:45 Dose: 16 units Metformin HCl (Glucophage) 1,000 mg PO BIDMEALS [facility] Last Admin: 04/21/19 08:00 Dose: 1,000 mg Metoprolol Succinate (Toprol Xl) 50 mg PO BID [facility] Nicotine (Habitrol) 21 mg TRDERM DAILY [facility] Pantoprazole Sodium (Protonix) 40 mg PO DAILY [facility] Last Admin: 04/21/19 08:05 Dose: 40 mg Pregabalin (Lyrica) 150 mg PO QID [facility] Last Admin: 04/21/19 05:42 Dose: 150 mg Quetiapine Fumarate (Seroquel) 50 mg PO BEDTIME [facility] Last Admin: 04/20/19 23:11 Dose: 50 mg Trazodone HCl (Trazodone) 100 mg PO BEDTIME [facility] Last Admin: 04/20/19 21:47 Dose: 100 mg Discontinued Medications Diltiazem HCl (Diltiazem) 20 mg IVPUSH ONETIME ONE Stop: 04/20/19 17:24 Last Admin: 04/20/19 17:30 Dose: 20 mg Diltiazem HCl (Diltiazem) Confirm Administered Dose 25 mg .ROUTE .STK-MED ONE Stop: 04/20/19 17:26 Last Admin: 04/20/19 17:36 Dose: Not Given Diltiazem HCl (Diltiazem) 20 mg IVPUSH ONETIME ONE Stop: 04/20/19 18:55 Last Admin: 04/20/19 18:59 Dose: 20 mg Lisinopril/HCTZ (Lisinopril-Hctz 10-12.5 Mg) 2 tab PO DAILY [facility] Sodium Chloride (Normal Saline) 1,000 mls @ 999 mls/hr IV STAT ONE Stop: 04/20/19 17:53 Last Admin: 04/20/19 17:07 Dose: 999 mls/hr Amiodarone HCl/Dextrose (Nexterone In Dextrose 150 Mg/100 Ml) 100 mls @ 600 mls /hr IV ONETIME ONE; Protocol Stop: 04/21/19 00:37 Last Admin: 04/21/19 00:39 Dose: 600 mls/hr Amiodarone HCl/Dextrose (Nexterone In Dextrose 360 Mg/200 Ml) 360 mg in 200 mls @ 33.333 mls/hr IV ASDIRECTED [facility]; Protocol Last Admin: 04/21/19 00:49 Dose: 1 mg/min, 33.333 mls/hr Insulin Human Regular (Novolin R) 5 unit SUBCUT NOW STA; Protocol Stop: 04/20/19 18:27 Last Admin: 04/20/19 18:37 Dose: Not Given Metformin HCl (Glucophage) 500 mg PO BIDMEALS [facility] Metformin HCl (Glucophage Xr) 1,000 mg PO BIDMEALS [facility] Metoprolol Succinate (Toprol Xl) 50 mg PO DAILY [facility] Last Admin: 04/21/19 08:00 Dose: 50 mg Metoprolol Tartrate (Lopressor) 5 mg IVPUSH Q5M [facility] Stop: 04/20/19 17:11 Last Admin: 04/20/19 21:08 Dose: Not Given Metoprolol Tartrate (Lopressor) 25 mg PO DAILY [facility] Pantoprazole Sodium (Protonix) 20 mg PO DAILY [facility] Last Admin: 04/20/19 21:57 Dose: Not Given - Exam General: Alert, Oriented Lungs: Clear to Auscultation, Normal Respiratory Effort Cardiovascular: Irregular Rhythm, Tachycardia GI/Abdominal Exam: Soft, Non-Tender Extremities: Non-Tender, No Pedal Edema Skin: Warm, Dry, Intact Neurological: No New Focal Deficit - Problem List Review Problem List Initiated/Reviewed/Updated: Yes - My Orders Last 24 Hours: My Active Orders 04/20/19 19:53 Accu Check [Blood Glucose Check, Bedside] [RC] TIDMEALS 04/20/19 20:34 Baclofen [Lioresal] 20 mg PO QID PRN 04/20/19 21:00 Insulin Detemir [Levemir] 16 unit SUBCUT BEDTIME QUEtiapine [SEROquel] 50 mg PO BEDTIME atorvaSTATin [Lipitor] 80 mg PO BEDTIME traZODone 100 mg PO BEDTIME 04/20/19 21:45 Pantoprazole [ProTONIX] 40 mg PO DAILY 04/20/19 22:00 Pregabalin [Lyrica] 150 mg PO QID 04/20/19 22:07 Diltiazem 10 mg IVPUSH Q3HR PRN 04/20/19 23:00 Apixaban [Eliquis] 5 mg PO BID 04/20/19 23:22 Cardiac Monitoring [RC] Q8H 04/20/19 23:38 Oxygen Therapy [RC] PRN VTE/DVT Education [RC] PER UNIT ROUTINE Vital Signs [RC] Q1H Resuscitation Status Routine 04/20/19 23:39 Antiembolic Devices [RC] PER UNIT ROUTINE Sequential Compression Device [OM.PC] Per Unit Routine 04/20/19 23:45 Diltiazem [Cardizem] 100 mg Sodium Chloride 0.9% [Normal Saline] 100 ml IV TITRATE 04/21/19 00:01 Transfer Patient (Change bed) [ADT] Routine 04/21/19 00:03 Admission Status [Patient Status] [ADT] Routine 04/21/19 06:50 Amiodarone In Dextrose,Iso-Osm [Nexterone in Dextrose 360 MG/200 ML] 360 mg in 200 ml IV ASDIRECTED 04/21/19 07:30 Insulin Aspart [NovoLOG] See Protocol SUBCUT TIDAC 04/21/19 08:00 metFORMIN [Glucophage] 1,000 mg PO BIDMEALS 04/21/19 09:00 DULoxetine [Cymbalta] 60 mg PO DAILY 04/21/19 10:37 Digoxin [Lanoxin] 250 mcg IVPUSH ONETIME ONE 04/21/19 21:00 Metoprolol Succinate [Toprol XL] 50 mg PO BID 04/21/19 Breakfast ADA Diabetic [[place] [employer] Diet] [DIET] - Plan Plan:: 58 yo male admitted with atrial fibrillation with RVR. A.fib with RVR: due to hypotension have started amiodarone drip will continue metoprolol and Eliquis, will continue to monitor blood pressure. Patient tested positive for meth but denies it use. DM: on levemir and ssi
[2019-04-21] MEDS: Nicotine 21 MG/24 Hr Patch TRDERM SCH (12:16)
[2019-04-21] MEDS: Sodium Chloride 0.9% 1,000 ML IV SCH (16:12)
[2019-04-21] MEDS ORDERED: LORazepam 2 MG/ML SDV IVPUSH PRN ×2 (16:18→17:15)
[2019-04-21] MEDS: Diltiazem 25 MG/5 ML SDV IVPUSH PRN (16:43)
[2019-04-21] MEDS: Albuterol/Ipratropium 3.0-0.5 MG/3 ML Neb Soln NEB PRN (17:06)
[2019-04-21] MEDS ORDERED: Sodium Chloride 0.9% 500 ML IV SCH (17:45)
[2019-04-21] MEDS: Thiamine 100 MG Tab PO SCH (17:50)
[2019-04-21] MEDS: Folic Acid 1 MG Tab PO SCH (17:50)
--- NOTE | 2019-04-21 19:10 | CR ---
Indication: Shortness breath. Hypertension. Technique: A single AP portable view of the chest was obtained. Comparison: April 20, 2019. Findings: The heart is normal in size. Increased interstitial opacities are identified bilaterally, greater on the left than the right. No pleural effusion or pneumothorax is identified. Impression: Increasing interstitial opacities bilaterally. Dictated by Kalee Cronin MD @ Apr 21 2019 7:05PM Signed by Dr. Kalee Cronin @ Apr 21 2019 7:08PM
[2019-04-21] MEDS ORDERED: Furosemide 40 MG/4 ML VIAL IVPUSH ONE (19:39)
[2019-04-21 19:40] LABS: CHLORIDE,CL 106 mmol/L (98-107); SODIUM,NA 138 mmol/L (136-148)
[2019-04-21] MEDS: LORazepam 2 MG/ML SDV IVPUSH PRN ×2 (19:47→22:14)
[2019-04-21] MEDS ORDERED: Levofloxacin/Dextrose 5%-Water 750 MG in Premix Bag 1 BAG IV SCH (20:00)
[2019-04-21] MEDS: atorvaSTATin 40 MG Tab PO SCH (20:09)
[2019-04-21] MEDS: traZODone 50 MG Tab PO SCH (20:09)
--- NOTE | 2019-04-21 20:45 | PCM.SN ---
- Free Text/Narrative Note: Patient reports some increasing shortness of breath. He has been diaphoretic and slightly agitated this evening but his has improved with ativan. Patient denies any alcohol use. He has a history of meth and opiod abuse in the past but denies current usage. Son is in the room and mentions he has been giving his father Kratom daily to help with his energy. Patient may be having withdrawing from Kratom. We will continue Ativan prn. CXR shows bilateral infiltrates. He does have some edema in the buttocks. We will give lasix and stop maintenance fluids. I will start levaquin for possible pneumonia. We will try to get his medical records from his hospitalization in [place].
[2019-04-21] MEDS: Insulin Detemir 100 Units/ML 3 ML Pen SUBCUT SCH (22:01)
[2019-04-22] MEDS ORDERED: Haloperidol Lactate 2 MG/ML Oral Soln 15 ML Bottle PO SCH
[2019-04-22] MEDS ORDERED: oxyCODONE ER 10 MG TAB.ER PO SCH
[2019-04-22] MEDS ORDERED: Morphine Oral Concentrate 20 MG/ML 30 ML Bottle PO SCH
[2019-04-22] MEDS ORDERED: Hyoscyamine 0.125 MG Tab.SL SL SCH
[2019-04-22] MEDS: Pregabalin 75 MG Cap PO SCH ×3 (00:55→20:24)
[2019-04-22] MEDS: LORazepam 2 MG/ML SDV IVPUSH PRN ×3 (01:43→21:04)
[2019-04-22] MEDS ORDERED: Diltiazem IR 30 MG Tab PO SCH ×2 (04:00→19:00)
[2019-04-22 06:12] LABS: CHLORIDE,CL 106 mmol/L (98-107); SODIUM,NA 142 mmol/L (136-148)
[2019-04-22] MEDS: metFORMIN 500 MG Tab PO SCH ×2 (08:43→17:11)
[2019-04-22] MEDS: Apixaban 5 MG Tab PO SCH ×2 (08:43→20:25)
[2019-04-22] MEDS: DULoxetine 60 MG Cap PO SCH (08:43)
[2019-04-22] MEDS: Pantoprazole 40 MG Tab.CR PO SCH (08:43)
[2019-04-22] MEDS: Insulin Aspart 100 Units/ML 3 ML Pen SUBCUT SCH ×3 (08:49→19:19)
[2019-04-22] MEDS: Metoprolol Succinate 50 MG Tab.ER PO SCH ×2 (08:55→20:26)
[2019-04-22] MEDS: Nicotine 21 MG/24 Hr Patch TRDERM SCH (08:55)
[2019-04-22] MEDS: Albuterol/Ipratropium 3.0-0.5 MG/3 ML Neb Soln NEB PRN ×2 (09:08→15:37)
[2019-04-22] MEDS ORDERED: Digoxin 500 MCG/2 ML Amp IVPUSH ONE (09:44)
[2019-04-22] MEDS ORDERED: Amiodarone 200 MG Tab PO SCH (11:30)
[2019-04-22] MEDS: Digoxin 125 MCG Tab PO SCH (11:50)
[2019-04-22] MEDS ORDERED: MVI, Adult with Vitamin K 10 ML, Thiamine 100 MG, Folic Acid 1 MG in Sodium Chloride 0.... IV ONE ×4 (13:20)
--- NOTE | 2019-04-22 13:21 | PCM.PN ---
- General Info Date of Service: 04/22/19 - Review of Systems Systems Review Comment:: feeling better after Ativan given, slept well - Patient Data Vitals - Most Recent: Last Vital Signs Temp 36.0 C 04/22/19 12:00 Pulse 147 H 04/22/19 13:00 Resp 19 04/22/19 13:00 BP 67/44 L 04/22/19 13:00 Pulse Ox 91 L 04/22/19 13:00 Weight - Most Recent: 104.2 kg I&O - Last 24 Hours: Intake & Output 04/21/19 04/22/19 04/22/19 22:59 06:59 14:59 Intake Total 2117 1034 Output Total 700 3870 Balance 1417 -2836 Lab Results Last 24 Hours: Laboratory Results - last 24 hr 04/21/19 04/21/19 04/21/19 Range/Units 17:27 19:15 19:15 WBC 11.42 H (4.0-11.0) K/uL RBC 4.53 (4.50-5.90) M/uL Hgb 14.4 (13.0-17.0) g/dL Hct 44.5 (38.0-50.0) % MCV 98.2 H (80.0-98.0) fL MCH 31.8 (27.0-32.0) pg MCHC 32.4 (31.0-37.0) g/dL RDW Std Deviation 53.9 (28.0-62.0) fl RDW Coeff of Dennis 15 (11.0-15.0) % Plt Count 243 (150-400) K/uL MPV 10.80 (7.40-12.00) fL Neut % (Auto) (48.0-80.0) % Lymph % (Auto) (16.0-40.0) % [place]atte % (Auto) (0.0-15.0) % Eos % (Auto) (0.0-7.0) % Baso % (Auto) (0.0-1.5) % Neut # (Auto) (1.4-5.7) K/uL Lymph # (Auto) (0.6-2.4) K/uL Platte # (Auto) (0.0-0.8) K/uL Eos # (Auto) (0.0-0.7) K/uL Baso # (Auto) (0.0-0.1) K/uL Neutrophils % (Manual) 66 (48.0-80.0) % Lymphocytes % (Manual) 27 (16.0-40.0) % Monocytes % (Manual) 6 (0.0-15.0) % Eosinophils % (Manual) 1 (0.0-7.0) % Nucleated RBC % 0.0 /100WBC Absolute Seg Neuts 7.5 H (1.4-5.7) Lymphocytes # (Manual) 3.1 H (0.6-2.4) Monocytes # (Manual) 0.7 (0.0-0.8) Eosinophils # (Manual) 0.1 (0.0-0.7) Nucleated RBCs # K/uL Lactate (0.20-2.00) mmol/L Sodium 138 (136-148) mmol/L Potassium 4.4 (3.5-5.1) mmol/L Chloride 106 (98-107) mmol/L Carbon Dioxide 25.1 (21.0-32.0) mmol/L BUN 14 (7.0-18.0) mg/dL Creatinine 1.0 (0.8-1.3) mg/dL Est Cr Clr Drug Dosing 88.78 mL/min Estimated GFR (MDRD) > 60.0 ml/min Glucose 155 H (74-106) mg/dL POC Glucose 147 H (60-110) mg/dL Calcium 8.4 L (8.5-10.1) mg/dL Total Bilirubin (0.2-1.0) mg/dL AST (15-37) IU/L ALT (14-63) IU/L Alkaline Phosphatase (46-116) U/L Total Protein (6.4-8.2) g/dL Albumin (3.4-5.0) g/dL Globulin (2.6-4.0) g/dL Albumin/Globulin Ratio (0.9-1.6) 04/21/19 04/21/19 04/22/19 Range/Units 19:15 22:06 05:40 WBC 10.75 (4.0-11.0) K/uL RBC 4.42 L (4.50-5.90) M/uL Hgb 13.6 (13.0-17.0) g/dL Hct 43.0 (38.0-50.0) % MCV 97.3 (80.0-98.0) fL MCH 30.8 (27.0-32.0) pg MCHC 31.6 (31.0-37.0) g/dL RDW Std Deviation 52.0 (28.0-62.0) fl RDW Coeff of Dennis 15 (11.0-15.0) % Plt Count 249 (150-400) K/uL MPV 10.60 (7.40-12.00) fL Neut % (Auto) 60.6 (48.0-80.0) % Lymph % (Auto) 26.0 (16.0-40.0) % [place]atte % (Auto) 10.0 (0.0-15.0) % Eos % (Auto) 3.2 (0.0-7.0) % Baso % (Auto) 0.2 (0.0-1.5) % Neut # (Auto) 6.5 H (1.4-5.7) K/uL Lymph # (Auto) 2.8 H (0.6-2.4) K/uL Platte # (Auto) 1.1 H (0.0-0.8) K/uL Eos # (Auto) 0.3 (0.0-0.7) K/uL Baso # (Auto) 0.0 (0.0-0.1) K/uL Neutrophils % (Manual) (48.0-80.0) % Lymphocytes % (Manual) (16.0-40.0) % Monocytes % (Manual) (0.0-15.0) % Eosinophils % (Manual) (0.0-7.0) % Nucleated RBC % 0.2 /100WBC Absolute Seg Neuts (1.4-5.7) Lymphocytes # (Manual) (0.6-2.4) Monocytes # (Manual) (0.0-0.8) Eosinophils # (Manual) (0.0-0.7) Nucleated RBCs # 0 K/uL Lactate 1.2 (0.20-2.00) mmol/L Sodium (136-148) mmol/L Potassium (3.5-5.1) mmol/L Chloride (98-107) mmol/L Carbon Dioxide (21.0-32.0) mmol/L BUN (7.0-18.0) mg/dL Creatinine (0.8-1.3) mg/dL Est Cr Clr Drug Dosing mL/min Estimated GFR (MDRD) ml/min Glucose (74-106) mg/dL POC Glucose 149 H (60-110) mg/dL Calcium (8.5-10.1) mg/dL Total Bilirubin (0.2-1.0) mg/dL AST (15-37) IU/L ALT (14-63) IU/L Alkaline Phosphatase (46-116) U/L Total Protein (6.4-8.2) g/dL Albumin (3.4-5.0) g/dL Globulin (2.6-4.0) g/dL Albumin/Globulin Ratio (0.9-1.6) 04/22/19 04/22/19 04/22/19 Range/Units 05:40 07:57 11:59 WBC (4.0-11.0) K/uL RBC (4.50-5.90) M/uL Hgb (13.0-17.0) g/dL Hct (38.0-50.0) % MCV (80.0-98.0) fL MCH (27.0-32.0) pg MCHC (31.0-37.0) g/dL RDW Std Deviation (28.0-62.0) fl RDW Coeff of Dennis (11.0-15.0) % Plt Count (150-400) K/uL MPV (7.40-12.00) fL Neut % (Auto) (48.0-80.0) % Lymph % (Auto) (16.0-40.0) % [place] % (Auto) (0.0-15.0) % Eos % (Auto) (0.0-7.0) % Baso % (Auto) (0.0-1.5) % Neut # (Auto) (1.4-5.7) K/uL Lymph # (Auto) (0.6-2.4) K/uL [place] # (Auto) (0.0-0.8) K/uL Eos # (Auto) (0.0-0.7) K/uL Baso # (Auto) (0.0-0.1) K/uL Neutrophils % (Manual) (48.0-80.0) % Lymphocytes % (Manual) (16.0-40.0) % Monocytes % (Manual) (0.0-15.0) % Eosinophils % (Manual) (0.0-7.0) % Nucleated RBC % /100WBC Absolute Seg Neuts (1.4-5.7) Lymphocytes # (Manual) (0.6-2.4) Monocytes # (Manual) (0.0-0.8) Eosinophils # (Manual) (0.0-0.7) Nucleated RBCs # K/uL Lactate (0.20-2.00) mmol/L Sodium 142 (136-148) mmol/L Potassium 3.9 (3.5-5.1) mmol/L Chloride 106 (98-107) mmol/L Carbon Dioxide 30.0 (21.0-32.0) mmol/L BUN 18 (7.0-18.0) mg/dL Creatinine 0.9 (0.8-1.3) mg/dL Est Cr Clr Drug Dosing 98.64 mL/min Estimated GFR (MDRD) > 60.0 ml/min Glucose 111 H (74-106) mg/dL POC Glucose 96 127 H (60-110) mg/dL Calcium 8.4 L (8.5-10.1) mg/dL Total Bilirubin 0.3 (0.2-1.0) mg/dL AST 25 (15-37) IU/L ALT 56 (14-63) IU/L Alkaline Phosphatase 72 (46-116) U/L Total Protein 6.2 L (6.4-8.2) g/dL Albumin 2.6 L (3.4-5.0) g/dL Globulin 3.6 (2.6-4.0) g/dL Albumin/Globulin Ratio 0.7 L (0.9-1.6) Payam Results Last 24 Hours: Microbiology 04/20/19 18:27 Aerobic Blood Culture - Preliminary Blood - Venous - Lab Draw NO GROWTH AFTER 1 DAY Anaerobic Blood Culture - Preliminary NO GROWTH AFTER 1 DAY 04/20/19 17:20 Aerobic Blood Culture - Preliminary Blood - Venous NO GROWTH AFTER 1 DAY Anaerobic Blood Culture - Final Med Orders - Current: Current Medications Albuterol/Ipratropium (Duoneb 3.0-0.5 Mg/3 Ml) 3 ml NEB Q4HRRT PRN PRN Reason: Wheezing Last Admin: 04/22/19 09:08 Dose: 3 ml Amiodarone HCl (Cordarone) 200 mg PO DAILY [facility] Last Admin: 04/22/19 11:50 Dose: 200 mg Apixaban (Eliquis) 5 mg PO BID [facility] Last Admin: 04/22/19 08:43 Dose: 5 mg Atorvastatin Calcium (Lipitor) 80 mg PO BEDTIME [facility] Last Admin: 04/21/19 20:09 Dose: 80 mg Baclofen (Lioresal) 20 mg PO QID PRN PRN Reason: Muscle Spasm Last Admin: 04/20/19 21:46 Dose: 20 mg Digoxin (Lanoxin) 125 mcg PO DAILY [facility] Last Admin: 04/22/19 11:50 Dose: 125 mcg Folic Acid (Folic Acid) 1 mg PO BEDTIME [facility] Last Admin: 04/21/19 17:50 Dose: 1 mg Sodium Chloride (Normal Saline) 1,000 mls @ 125 mls/hr IV ASDIRECTED [facility] Last Admin: 04/21/19 16:12 Dose: 125 mls/hr Amiodarone HCl/Dextrose (Nexterone In Dextrose 360 Mg/200 Ml) 360 mg in 200 mls @ 16.667 mls/hr IV ASDIRECTED [facility]; Protocol Last Admin: 04/21/19 18:03 Dose: 0.5 mg/min, 16.667 mls/hr Sodium Chloride (Normal Saline) 500 mls @ 500 mls/hr IV .BOLUS [facility] Last Admin: 04/21/19 18:06 Dose: 500 mls/hr Insulin Aspart (Novolog) 0 unit SUBCUT TIDAC [facility]; Protocol Last Admin: 04/22/19 12:01 Dose: Not Given Insulin Detemir (Levemir) 16 unit SUBCUT BEDTIME [facility] Last Admin: 04/21/19 22:01 Dose: 16 units Lorazepam (Ativan) 1 mg IVPUSH Q2H PRN PRN Reason: anxiety,agitation, CIWAA Last Admin: 04/22/19 01:43 Dose: 1 mg Metformin HCl (Glucophage) 1,000 mg PO BIDMEALS [facility] Last Admin: 04/22/19 08:43 Dose: 1,000 mg Metoprolol Succinate (Toprol Xl) 25 mg PO BID [facility] Last Admin: 04/22/19 08:55 Dose: 25 mg Nicotine (Habitrol) 21 mg TRDERM DAILY [facility] Last Admin: 04/22/19 08:55 Dose: 21 mg Pantoprazole Sodium (Protonix) 40 mg PO DAILY [facility] Last Admin: 04/22/19 08:43 Dose: 40 mg Pregabalin (Lyrica) 150 mg PO BID [facility] Quetiapine Fumarate (Seroquel) 50 mg PO BEDTIME [facility] Last Admin: 04/21/19 20:09 Dose: 50 mg Thiamine HCl (Vitamin B-1) 100 mg PO BEDTIME [facility] Last Admin: 04/21/19 17:50 Dose: 100 mg Trazodone HCl (Trazodone) 100 mg PO BEDTIME [facility] Last Admin: 04/21/19 20:09 Dose: 100 mg Discontinued Medications Digoxin (Lanoxin) 250 mcg IVPUSH ONETIME ONE Stop: 04/21/19 10:38 Last Admin: 04/21/19 12:14 Dose: 250 mcg Digoxin (Lanoxin) 250 mcg IVPUSH ONETIME ONE Stop: 04/21/19 17:41 Last Admin: 04/21/19 18:03 Dose: 250 mcg Digoxin (Lanoxin) 250 mcg IVPUSH ONETIME ONE Stop: 04/21/19 21:01 Last Admin: 04/21/19 20:28 Dose: 250 mcg Digoxin (Lanoxin) 250 mcg IVPUSH ONETIME ONE Stop: 04/22/19 09:45 Last Admin: 04/22/19 11:50 Dose: 250 mcg Diltiazem HCl (Diltiazem) 20 mg IVPUSH ONETIME ONE Stop: 04/20/19 17:24 Last Admin: 04/20/19 17:30 Dose: 20 mg Diltiazem HCl (Diltiazem) Confirm Administered Dose 25 mg .ROUTE .STK-MED ONE Stop: 04/20/19 17:26 Last Admin: 04/20/19 17:36 Dose: Not Given Diltiazem HCl (Diltiazem) 20 mg IVPUSH ONETIME ONE Stop: 04/20/19 18:55 Last Admin: 04/20/19 18:59 Dose: 20 mg Diltiazem HCl (Diltiazem) 10 mg IVPUSH Q3HR PRN PRN Reason: for heart rate >100 Last Admin: 04/21/19 16:43 Dose: 10 mg Diltiazem HCl (Cardizem) 30 mg PO Q6HR [facility] Last Admin: 04/22/19 05:14 Dose: 30 mg Duloxetine HCl (Cymbalta) 60 mg PO DAILY [facility] Last Admin: 04/22/19 08:43 Dose: 60 mg Furosemide (Lasix) 40 mg IVPUSH NOW ONE Stop: 04/21/19 19:40 Last Admin: 04/21/19 20:03 Dose: 40 mg Lisinopril/HCTZ (Lisinopril-Hctz 10-12.5 Mg) 2 tab PO DAILY [facility] Sodium Chloride (Normal Saline) 1,000 mls @ 999 mls/hr IV STAT ONE Stop: 04/20/19 17:53 Last Admin: 04/20/19 17:07 Dose: 999 mls/hr Diltiazem HCl 100 mg/ Sodium (Chloride) 100 mls @ 5 mls/hr IV TITRATE [facility]; Protocol Amiodarone HCl/Dextrose (Nexterone In Dextrose 150 Mg/100 Ml) 100 mls @ 600 mls /hr IV ONETIME ONE; Protocol Stop: 04/21/19 00:37 Last Admin: 04/21/19 00:39 Dose: 600 mls/hr Amiodarone HCl/Dextrose (Nexterone In Dextrose 360 Mg/200 Ml) 360 mg in 200 mls @ 33.333 mls/hr IV ASDIRECTED [facility]; Protocol Last Admin: 04/21/19 00:49 Dose: 1 mg/min, 33.333 mls/hr Levofloxacin/Dextrose 750 mg/ (Premix) 150 mls @ 100 mls/hr IV Q24H [facility] Last Admin: 04/21/19 20:27 Dose: 100 mls/hr Insulin Human Regular (Novolin R) 5 unit SUBCUT NOW [facility]; Protocol Stop: 04/20/19 18:27 Last Admin: 04/20/19 18:37 Dose: Not Given Lorazepam (Ativan) 1 mg IVPUSH Q6H PRN PRN Reason: anxiety,agitation, CIWAA Last Admin: 04/21/19 16:42 Dose: 1 mg Lorazepam (Ativan) 1 mg IVPUSH Q4H PRN PRN Reason: anxiety,agitation, CIWAA Metformin HCl (Glucophage) 500 mg PO BIDMEALS [facility] Metformin HCl (Glucophage Xr) 1,000 mg PO BIDMEALS [facility] Metoprolol Succinate (Toprol Xl) 50 mg PO DAILY [facility] Last Admin: 04/21/19 08:00 Dose: 50 mg Metoprolol Succinate (Toprol Xl) 50 mg PO BID [facility] Last Admin: 04/21/19 20:33 Dose: Not Given Metoprolol Tartrate (Lopressor) 5 mg IVPUSH Q5M [facility] Stop: 04/20/19 17:11 Last Admin: 04/20/19 21:08 Dose: Not Given Metoprolol Tartrate (Lopressor) 25 mg PO DAILY [facility] Pantoprazole Sodium (Protonix) 20 mg PO DAILY [facility] Last Admin: 04/20/19 21:57 Dose: Not Given Pregabalin (Lyrica) 150 mg PO QID [facility] Last Admin: 04/22/19 06:17 Dose: Not Given - Exam General: Alert, Oriented Neck: Supple Lungs: Clear to Auscultation, Normal Respiratory Effort Cardiovascular: Irregular Rhythm, Tachycardia GI/Abdominal Exam: Soft, Non-Tender Extremities: Non-Tender, No Pedal Edema Skin: Warm, Dry, Intact - Problem List Review Problem List Initiated/Reviewed/Updated: Yes - My Orders Last 24 Hours: My Active Orders 04/21/19 16:58 Albuterol/Ipratropium [DuoNeb 3.0-0.5 MG/3 ML] 3 ml NEB Q4HRRT PRN 04/21/19 16:59 RT Aerosol Therapy [RC] ASDIRECTED 04/21/19 20:14 Obtain Past Medical Record [OM.PC] Routine 04/22/19 11:30 Amiodarone [Cordarone] 200 mg PO DAILY 04/22/19 20:14 Echo Comp wo Cont [US] Routine 04/23/19 05:11 BASIC METABOLIC PANEL,BMP [CHEM] AM CBC WITH AUTO DIFF [HEME] AM CBC WITH AUTO DIFF [HEME] AM CMP [COMPREHENSIVE METABOLIC PN,CMP] [CHEM] AM 04/24/19 05:11 BASIC METABOLIC PANEL,BMP [CHEM] AM CBC WITH AUTO DIFF [HEME] AM - Plan Plan:: 58 yo male admitted with atrial fibrillation with RVR. A.fib with RVR: continue metoprolol, diltiazem, and dixogin. Patient has been loaded with IV amiodarone, will start PO. Dr. Melendez has been consulted. DM: on levemir and ssi
[2019-04-22] MEDS ORDERED: Diltiazem IR 30 MG Tab PO ONE (13:57)
--- NOTE | 2019-04-22 16:11 | CT ---
EXAMINATION: Non contrast CT head. Coronal and sagittal reformats. HISTORY: Altered mental status FINDINGS: No evidence of intra or extra axial hemorrhage, mass, midline shift, hydrocephalus or edema. There are areas encephalomalacia within the right frontal lobe No hypoattenuation changes in the major vascular territories to suggest acute infarct. No abnormal intracranial calcifications are detected. No evidence of substantial vascular calcifications. Paranasal sinuses and mastoid air cells are well aerated without substantial findings. Pituitary fossa appears unremarkable. Orbits and globes are symmetric. Calvarium is intact. No evidence of skull fracture. IMPRESSION: 1. No acute intracranial findings. 2. 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
[2019-04-22] MEDS: Thiamine 100 MG Tab PO SCH (20:25)
[2019-04-22] MEDS: traZODone 50 MG Tab PO SCH (20:25)
[2019-04-22] MEDS: atorvaSTATin 40 MG Tab PO SCH (20:25)
[2019-04-22] MEDS: Folic Acid 1 MG Tab PO SCH (20:27)
[2019-04-22] MEDS: Diltiazem 120 MG Cap.CD PO SCH (20:31)
[2019-04-22] MEDS: Insulin Detemir 100 Units/ML 3 ML Pen SUBCUT SCH (20:35)
[2019-04-22] MEDS: Acetaminophen 325 MG Tab PO PRN (21:03)
[2019-04-23] MEDS: LORazepam 2 MG/ML SDV IVPUSH PRN ×2 (02:36→12:26)
[2019-04-23 06:53] LABS: CHLORIDE,CL 105 mmol/L (98-107); SODIUM,NA 143 mmol/L (136-148)
[2019-04-23] MEDS: Insulin Aspart 100 Units/ML 3 ML Pen SUBCUT SCH ×3 (07:36→17:08)
[2019-04-23] MEDS: Apixaban 5 MG Tab PO SCH ×2 (09:15→20:06)
[2019-04-23] MEDS: metFORMIN 500 MG Tab PO SCH ×2 (09:15→16:24)
[2019-04-23] MEDS: Nicotine 21 MG/24 Hr Patch TRDERM SCH (09:15)
[2019-04-23] MEDS: Pantoprazole 40 MG Tab.CR PO SCH (09:15)
[2019-04-23] MEDS: Metoprolol Succinate 50 MG Tab.ER PO SCH ×2 (09:16→20:07)
[2019-04-23] MEDS: Pregabalin 75 MG Cap PO SCH ×2 (09:16→20:06)
[2019-04-23] MEDS: Digoxin 125 MCG Tab PO SCH (09:16)
[2019-04-23] MEDS: Diltiazem 120 MG Cap.CD PO SCH (09:20)
--- NOTE | 2019-04-23 11:02 | PCM.PN ---
- General Info Date of Service: 04/23/19 - Review of Systems Systems Review Comment:: feeling better, but is tired and reports generalized weakness. - Patient Data Vitals - Most Recent: Last Vital Signs Temp 37.1 C 04/23/19 08:00 Pulse 106 H 04/23/19 09:20 Resp 19 04/23/19 09:00 BP 136/99 H 04/23/19 09:20 Pulse Ox 91 L 04/23/19 09:00 Weight - Most Recent: 104.2 kg I&O - Last 24 Hours: Intake & Output 04/22/19 04/23/19 04/23/19 22:59 06:59 14:59 Intake Total 1653 1815 Output Total 1200 1475 Balance 453 340 Lab Results Last 24 Hours: Laboratory Results - last 24 hr 04/22/19 04/22/19 04/22/19 Range/Units 07:57 11:59 17:07 WBC (4.0-11.0) K/uL RBC (4.50-5.90) M/uL Hgb (13.0-17.0) g/dL Hct (38.0-50.0) % MCV (80.0-98.0) fL MCH (27.0-32.0) pg MCHC (31.0-37.0) g/dL RDW Std Deviation (28.0-62.0) fl RDW Coeff of Dennis (11.0-15.0) % Plt Count (150-400) K/uL MPV (7.40-12.00) fL Neut % (Auto) (48.0-80.0) % Lymph % (Auto) (16.0-40.0) % Day % (Auto) (0.0-15.0) % Eos % (Auto) (0.0-7.0) % Baso % (Auto) (0.0-1.5) % Neut # (Auto) (1.4-5.7) K/uL Lymph # (Auto) (0.6-2.4) K/uL Day # (Auto) (0.0-0.8) K/uL Eos # (Auto) (0.0-0.7) K/uL Baso # (Auto) (0.0-0.1) K/uL Nucleated RBC % /100WBC Nucleated RBCs # K/uL Sodium (136-148) mmol/L Potassium (3.5-5.1) mmol/L Chloride (98-107) mmol/L Carbon Dioxide (21.0-32.0) mmol/L BUN (7.0-18.0) mg/dL Creatinine (0.8-1.3) mg/dL Est Cr Clr Drug Dosing mL/min Estimated GFR (MDRD) ml/min Glucose (74-106) mg/dL POC Glucose 96 127 H 114 H (60-110) mg/dL Calcium (8.5-10.1) mg/dL Total Bilirubin (0.2-1.0) mg/dL AST (15-37) IU/L ALT (14-63) IU/L Alkaline Phosphatase (46-116) U/L B-Natriuretic Peptide (<100) PG/ML Total Protein (6.4-8.2) g/dL Albumin (3.4-5.0) g/dL Globulin (2.6-4.0) g/dL Albumin/Globulin Ratio (0.9-1.6) 04/22/19 04/23/19 04/23/19 Range/Units 20:33 06:20 06:20 WBC 10.74 (4.0-11.0) K/uL RBC 4.49 L (4.50-5.90) M/uL Hgb 13.8 (13.0-17.0) g/dL Hct 43.0 (38.0-50.0) % MCV 95.8 (80.0-98.0) fL MCH 30.7 (27.0-32.0) pg MCHC 32.1 (31.0-37.0) g/dL RDW Std Deviation 50.8 (28.0-62.0) fl RDW Coeff of Dennis 15 (11.0-15.0) % Plt Count 243 (150-400) K/uL MPV 10.50 (7.40-12.00) fL Neut % (Auto) 53.8 (48.0-80.0) % Lymph % (Auto) 32.5 (16.0-40.0) % Day % (Auto) 10.0 (0.0-15.0) % Eos % (Auto) 3.5 (0.0-7.0) % Baso % (Auto) 0.2 (0.0-1.5) % Neut # (Auto) 5.8 H (1.4-5.7) K/uL Lymph # (Auto) 3.5 H (0.6-2.4) K/uL Day # (Auto) 1.1 H (0.0-0.8) K/uL Eos # (Auto) 0.4 (0.0-0.7) K/uL Baso # (Auto) 0.0 (0.0-0.1) K/uL Nucleated RBC % 0.0 /100WBC Nucleated RBCs # 0 K/uL Sodium 143 (136-148) mmol/L Potassium 4.1 (3.5-5.1) mmol/L Chloride 105 (98-107) mmol/L Carbon Dioxide 30.7 (21.0-32.0) mmol/L BUN 22 H (7.0-18.0) mg/dL Creatinine 0.9 (0.8-1.3) mg/dL Est Cr Clr Drug Dosing 98.64 mL/min Estimated GFR (MDRD) > 60.0 ml/min Glucose 120 H (74-106) mg/dL POC Glucose 148 H (60-110) mg/dL Calcium 9.5 (8.5-10.1) mg/dL Total Bilirubin 0.4 (0.2-1.0) mg/dL AST 13 L (15-37) IU/L ALT 45 (14-63) IU/L Alkaline Phosphatase 71 (46-116) U/L B-Natriuretic Peptide (<100) PG/ML Total Protein 6.2 L (6.4-8.2) g/dL Albumin 2.5 L (3.4-5.0) g/dL Globulin 3.7 (2.6-4.0) g/dL Albumin/Globulin Ratio 0.7 L (0.9-1.6) 04/23/19 04/23/19 Range/Units 06:20 07:34 WBC (4.0-11.0) K/uL RBC (4.50-5.90) M/uL Hgb (13.0-17.0) g/dL Hct (38.0-50.0) % MCV (80.0-98.0) fL MCH (27.0-32.0) pg MCHC (31.0-37.0) g/dL RDW Std Deviation (28.0-62.0) fl RDW Coeff of Dennis (11.0-15.0) % Plt Count (150-400) K/uL MPV (7.40-12.00) fL Neut % (Auto) (48.0-80.0) % Lymph % (Auto) (16.0-40.0) % Day % (Auto) (0.0-15.0) % Eos % (Auto) (0.0-7.0) % Baso % (Auto) (0.0-1.5) % Neut # (Auto) (1.4-5.7) K/uL Lymph # (Auto) (0.6-2.4) K/uL Day # (Auto) (0.0-0.8) K/uL Eos # (Auto) (0.0-0.7) K/uL Baso # (Auto) (0.0-0.1) K/uL Nucleated RBC % /100WBC Nucleated RBCs # K/uL Sodium (136-148) mmol/L Potassium (3.5-5.1) mmol/L Chloride (98-107) mmol/L Carbon Dioxide (21.0-32.0) mmol/L BUN (7.0-18.0) mg/dL Creatinine (0.8-1.3) mg/dL Est Cr Clr Drug Dosing mL/min Estimated GFR (MDRD) ml/min Glucose (74-106) mg/dL POC Glucose 116 H (60-110) mg/dL Calcium (8.5-10.1) mg/dL Total Bilirubin (0.2-1.0) mg/dL AST (15-37) IU/L ALT (14-63) IU/L Alkaline Phosphatase (46-116) U/L B-Natriuretic Peptide 234 H (<100) PG/ML Total Protein (6.4-8.2) g/dL Albumin (3.4-5.0) g/dL Globulin (2.6-4.0) g/dL Albumin/Globulin Ratio (0.9-1.6) Payam Results Last 24 Hours: Microbiology 04/20/19 18:27 Aerobic Blood Culture - Preliminary Blood - Venous - Lab Draw NO GROWTH AFTER 2 DAYS Anaerobic Blood Culture - Preliminary NO GROWTH AFTER 2 DAYS 04/20/19 17:20 Aerobic Blood Culture - Preliminary Blood - Venous NO GROWTH AFTER 2 DAYS Anaerobic Blood Culture - Final Med Orders - Current: Current Medications Acetaminophen (Tylenol) 650 mg PO Q6H PRN PRN Reason: Headache/Pain Last Admin: 04/22/19 21:03 Dose: 650 mg Albuterol/Ipratropium (Duoneb 3.0-0.5 Mg/3 Ml) 3 ml NEB Q4HRRT PRN PRN Reason: Wheezing Last Admin: 04/22/19 15:37 Dose: 3 ml Amiodarone HCl (Cordarone) 200 mg PO DAILY [facility] Apixaban (Eliquis) 5 mg PO BID [facility] Last Admin: 04/23/19 09:15 Dose: 5 mg Atorvastatin Calcium (Lipitor) 80 mg PO BEDTIME [facility] Last Admin: 04/22/19 20:25 Dose: 80 mg Baclofen (Lioresal) 20 mg PO QID PRN PRN Reason: Muscle Spasm Last Admin: 04/20/19 21:46 Dose: 20 mg Digoxin (Lanoxin) 125 mcg PO DAILY [facility] Last Admin: 04/23/19 09:16 Dose: 125 mcg Diltiazem HCl (Cardizem Cd) 120 mg PO DAILY [facility] Last Admin: 04/23/19 09:20 Dose: 120 mg Folic Acid (Folic Acid) 1 mg PO BEDTIME [facility] Last Admin: 04/22/19 20:27 Dose: 1 mg Sodium Chloride (Normal Saline) 1,000 mls @ 125 mls/hr IV ASDIRECTED [facility] Last Admin: 04/21/19 16:12 Dose: 125 mls/hr Sodium Chloride (Normal Saline) 500 mls @ 500 mls/hr IV .BOLUS [facility] Last Admin: 04/21/19 18:06 Dose: 500 mls/hr Amiodarone HCl/Dextrose (Nexterone In Dextrose 360 Mg/200 Ml) 360 mg in 200 mls @ 16.667 mls/hr IV ASDIRECTED [facility]; Protocol Stop: 04/23/19 20:01 Last Admin: 04/23/19 07:17 Dose: 0.5 mg/min, 16.667 mls/hr Insulin Aspart (Novolog) 0 unit SUBCUT TIDAC [facility]; Protocol Last Admin: 04/23/19 07:36 Dose: Not Given Insulin Detemir (Levemir) 16 unit SUBCUT BEDTIME [facility] Last Admin: 04/22/19 20:35 Dose: 16 units Lorazepam (Ativan) 1 mg IVPUSH Q2H PRN PRN Reason: anxiety,agitation, CIWAA Last Admin: 04/23/19 02:36 Dose: 1 mg Metformin HCl (Glucophage) 1,000 mg PO BIDMEALS [facility] Last Admin: 04/23/19 09:15 Dose: 1,000 mg Metoprolol Succinate (Toprol Xl) 25 mg PO BID [facility] Last Admin: 04/23/19 09:16 Dose: 50 mg Nicotine (Habitrol) 21 mg TRDERM DAILY [facility] Last Admin: 04/23/19 09:15 Dose: 21 mg Pantoprazole Sodium (Protonix) 40 mg PO DAILY [facility] Last Admin: 04/23/19 09:15 Dose: 40 mg Pregabalin (Lyrica) 150 mg PO BID [facility] Last Admin: 04/23/19 09:16 Dose: 150 mg Quetiapine Fumarate (Seroquel) 50 mg PO BEDTIME [facility] Last Admin: 04/22/19 20:27 Dose: 50 mg Thiamine HCl (Vitamin B-1) 100 mg PO BEDTIME [facility] Last Admin: 04/22/19 20:25 Dose: 100 mg Trazodone HCl (Trazodone) 100 mg PO BEDTIME [facility] Last Admin: 04/22/19 20:25 Dose: 100 mg Discontinued Medications Amiodarone HCl (Cordarone) 200 mg PO DAILY [facility] Last Admin: 04/22/19 11:50 Dose: 200 mg Digoxin (Lanoxin) 250 mcg IVPUSH ONETIME ONE Stop: 04/21/19 10:38 Last Admin: 04/21/19 12:14 Dose: 250 mcg Digoxin (Lanoxin) 250 mcg IVPUSH ONETIME ONE Stop: 04/21/19 17:41 Last Admin: 04/21/19 18:03 Dose: 250 mcg Digoxin (Lanoxin) 250 mcg IVPUSH ONETIME ONE Stop: 04/21/19 21:01 Last Admin: 04/21/19 20:28 Dose: 250 mcg Digoxin (Lanoxin) 250 mcg IVPUSH ONETIME ONE Stop: 04/22/19 09:45 Last Admin: 04/22/19 11:50 Dose: 250 mcg Diltiazem HCl (Diltiazem) 20 mg IVPUSH ONETIME ONE Stop: 04/20/19 17:24 Last Admin: 04/20/19 17:30 Dose: 20 mg Diltiazem HCl (Diltiazem) Confirm Administered Dose 25 mg .ROUTE .STK-MED ONE Stop: 04/20/19 17:26 Last Admin: 04/20/19 17:36 Dose: Not Given Diltiazem HCl (Diltiazem) 20 mg IVPUSH ONETIME ONE Stop: 04/20/19 18:55 Last Admin: 04/20/19 18:59 Dose: 20 mg Diltiazem HCl (Diltiazem) 10 mg IVPUSH Q3HR PRN PRN Reason: for heart rate >100 Last Admin: 04/21/19 16:43 Dose: 10 mg Diltiazem HCl (Cardizem) 30 mg PO Q6HR [facility] Last Admin: 04/22/19 05:14 Dose: 30 mg Diltiazem HCl (Cardizem) 30 mg PO ONETIME ONE Stop: 04/22/19 13:58 Last Admin: 04/22/19 13:57 Dose: 30 mg Diltiazem HCl (Cardizem) 30 mg PO Q6HR [facility] Last Admin: 04/22/19 18:39 Dose: 30 mg Duloxetine HCl (Cymbalta) 60 mg PO DAILY [facility] Last Admin: 04/22/19 08:43 Dose: 60 mg Furosemide (Lasix) 40 mg IVPUSH NOW ONE Stop: 04/21/19 19:40 Last Admin: 04/21/19 20:03 Dose: 40 mg Lisinopril/HCTZ (Lisinopril-Hctz 10-12.5 Mg) 2 tab PO DAILY [facility] Sodium Chloride (Normal Saline) 1,000 mls @ 999 mls/hr IV STAT ONE Stop: 04/20/19 17:53 Last Admin: 04/20/19 17:07 Dose: 999 mls/hr Diltiazem HCl 100 mg/ Sodium (Chloride) 100 mls @ 5 mls/hr IV TITRATE [facility]; Protocol Amiodarone HCl/Dextrose (Nexterone In Dextrose 150 Mg/100 Ml) 100 mls @ 600 mls /hr IV ONETIME ONE; Protocol Stop: 04/21/19 00:37 Last Admin: 04/21/19 00:39 Dose: 600 mls/hr Amiodarone HCl/Dextrose (Nexterone In Dextrose 360 Mg/200 Ml) 360 mg in 200 mls @ 33.333 mls/hr IV ASDIRECTED [facility]; Protocol Last Admin: 04/21/19 00:49 Dose: 1 mg/min, 33.333 mls/hr Amiodarone HCl/Dextrose (Nexterone In Dextrose 360 Mg/200 Ml) 360 mg in 200 mls @ 16.667 mls/hr IV ASDIRECTED [facility]; Protocol Last Admin: 04/21/19 18:03 Dose: 0.5 mg/min, 16.667 mls/hr Levofloxacin/Dextrose 750 mg/ (Premix) 150 mls @ 100 mls/hr IV Q24H [facility] Last Admin: 04/21/19 20:27 Dose: 100 mls/hr Multivitamins/Minerals 10 ml/Thiamine HCl 100 mg/ Folic Acid 1 mg/ Sodium Chloride 1,011.2 mls @ 250 mls/hr IV ONETIME ONE Stop: 04/22/19 17:22 Last Admin: 04/22/19 13:45 Dose: 250 mls/hr Insulin Human Regular (Novolin R) 5 unit SUBCUT NOW [facility]; Protocol Stop: 04/20/19 18:27 Last Admin: 04/20/19 18:37 Dose: Not Given Lorazepam (Ativan) 1 mg IVPUSH Q6H PRN PRN Reason: anxiety,agitation, CIWAA Last Admin: 04/21/19 16:42 Dose: 1 mg Lorazepam (Ativan) 1 mg IVPUSH Q4H PRN PRN Reason: anxiety,agitation, CIWAA Metformin HCl (Glucophage) 500 mg PO BIDMEALS [facility] Metformin HCl (Glucophage Xr) 1,000 mg PO BIDMEALS [facility] Metoprolol Succinate (Toprol Xl) 50 mg PO DAILY [facility] Last Admin: 04/21/19 08:00 Dose: 50 mg Metoprolol Succinate (Toprol Xl) 50 mg PO BID [facility] Last Admin: 04/21/19 20:33 Dose: Not Given Metoprolol Tartrate (Lopressor) 5 mg IVPUSH Q5M [facility] Stop: 04/20/19 17:11 Last Admin: 04/20/19 21:08 Dose: Not Given Metoprolol Tartrate (Lopressor) 25 mg PO DAILY [facility] Pantoprazole Sodium (Protonix) 20 mg PO DAILY [facility] Last Admin: 04/20/19 21:57 Dose: Not Given Pregabalin (Lyrica) 150 mg PO QID [facility] Last Admin: 04/22/19 06:17 Dose: Not Given - Exam General: Alert, Oriented Neck: Supple Lungs: Clear to Auscultation, Normal Respiratory Effort Cardiovascular: Irregular Rhythm, Tachycardia GI/Abdominal Exam: Soft, Non-Tender Neurological: No New Focal Deficit - Problem List Review Problem List Initiated/Reviewed/Updated: Yes - My Orders Last 24 Hours: My Active Orders 04/22/19 20:14 Echo Comp wo Cont [US] Routine 04/24/19 05:11 BASIC METABOLIC PANEL,BMP [CHEM] AM CBC WITH AUTO DIFF [HEME] AM - Plan Plan:: 58 yo male admitted with atrial fibrillation with RVR. A.fib with RVR on amiodarone drip, continue diltiazem, metoprolol, and digoxin. Echocardiogram pending. Dr. Melendez consulted. Patient is on Eliquis Kratom withdrawal: on ativan prn DM: levemir and ssi
[2019-04-23] MEDS ORDERED: LORazepam 1 MG Tab PO PRN (12:01)
[2019-04-23] MEDS: Acetaminophen 325 MG Tab PO PRN ×2 (13:19→20:12)
--- NOTE | 2019-04-23 16:22 | PCM.SN ---
- Free Text/Narrative Note: dictation # [id number]
[2019-04-23] MEDS: Baclofen 10 MG Tab PO PRN (16:24)
--- NOTE | 2019-04-23 17:26 | CONS ---
DATE OF CONSULTATION: DATE OF : 1960 PRIMARY CARE PHYSICIAN: None PCP REASON FOR CONSULTATION: Atrial fibrillation and atrial flutter. HISTORY OF PRESENT ILLNESS: This is a 58-year-old male, who just moved here from [place]. He has history of an old stroke, diabetes, hypertension. Also, history of a heart attack in 1999. History of polysubstance abuse including kratom, methamphetamine, and also marijuana. He came in here basically for the dizziness. He has had it for almost several months and it occurs every day. His dizziness it felt like he could not get his balance straight and lasted for 5 minutes and it could come back during the daytime. He denies heart racing or chest pain. He has a history of atrial fibrillation that he was told 1 week ago when he was in the emergency room in [facility], and he was discharged home. At that time, he was started with the Eliquis, but he told me that he had a history of a stroke in the past, like prestroke. The first time he was diagnosed with a stroke like 1-1/2 years ago in [place]. At that time, he remembered that he had the symptoms of dizziness and drooling in his mouth. He did not recall seeing neurologist, but he also used to be on Coumadin before switching to Eliquis. He did not see any primary care doctors for a long time, but I am not certain how exactly he got the medication refilled. Otherwise, urine drug screening was positive for methamphetamine and also for marijuana as well. He admitted that he used kratom. 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 MEDICATIONS: Home medications listed in the hospital including metformin 500 mg two tablets p.o. b.i.d., Lupe 150 mg four times a day, Protonix 40 mg once a day, metoprolol 25 mg once a day, lisinopril-hydrochlorothiazide 20/25, insulin, Plavix 75, Eliquis 5 mg. HOSPITAL COURSE: He presented with the atrial fibrillation, RVR and that was the reason he was admitted to the hospital. He was given the diltiazem IV push as well as metoprolol 25 twice a day. He got digoxin loaded with 250 mcg IV x3 the day prior, and he also got the amiodarone IV drip for 24 hours and it was stopped. Currently, he was given the amiodarone 200 mg one time and today he got one dose of digoxin 250 mcg IV x1 as well as p.o. 125 mcg. He got one dose of metoprolol as well. The day prior, because the chest x-ray showed possible pulmonary venous congestion, he was given the Lasix, and he put out a urine output of 4 L yesterday. Today, he had become hypotensive with the atrial flutter, rate of 130 to 140, that was the reason for me to come and see the patient. SOCIAL HISTORY: He is currently smoking. Not drinking alcohol. History of polysubstance abuse including marijuana. He admitted to using kratom. He denies using methamphetamine, but his urine drug screen was positive for methamphetamine. ALLERGIES: He is allergic to bee sting. PHYSICAL EXAMINATION: VITAL SIGNS: The blood pressure is 90/60, heart rate of 130, respirations are 12 to 16, O2 saturation is 92 on room air, temperature 96.8. HEENT: Not pale. No jaundice. No JVD. HEART: Totally irregular. Tachycardia. LUNGS: Minimal wheezing bilaterally. ABDOMEN: Soft, nontender. Bowel sounds are present. No hepatosplenomegaly. EXTREMITIES: Legs, no edema. DIAGNOSTIC STUDIES: EKGs show atrial flutter with a variable AV block. Heart rate of 130s. Echocardiogram prelim report showing preserved ejection fraction, possibly 50% to 55%. No significant valvular problem. CT scan was positive for a large old stroke, no hemorrhage. CBC showed WBC of 10, hematocrit of 43, hemoglobin of 15. Sodium 142, potassium 3.9, chloride 103, bicarb 30. Albumin is 2.6. BNP was elevated at 234. Troponin was negative x3. Albumin is 2.5. Urinalysis is positive for urine protein. A urine drug screen is positive for marijuana and methamphetamine. ASSESSMENT AND PLAN: This is a 58-year-old male with history of polysubstance abuse, hypertension, diabetes, chronic obstructive pulmonary disease, current smoker, unknown onset of atrial fibrillation and atrial flutter. Recommended a repeated blood pressure, it has come up to 120/80, and the reason for the low blood pressure could be due to overdiuresis from Lasix. I will probably change to Cardizem 120 long acting. We will probably restart amiodarone 0.5 mg/minute IV drip and continue Eliquis. A SHANNAN-VASc score is at least 4 including history of hypertension, diabetes. So lifelong anticoagulation for stroke risk reduction. Recommended to him that he should stop using drugs. ISAÍAS CATALAN /[id number]
[2019-04-23] MEDS: Insulin Detemir 100 Units/ML 3 ML Pen SUBCUT SCH (20:06)
[2019-04-23] MEDS: Thiamine 100 MG Tab PO SCH (20:06)
[2019-04-23] MEDS: Folic Acid 1 MG Tab PO SCH (20:12)
[2019-04-23] MEDS: traZODone 50 MG Tab PO SCH (20:12)
[2019-04-23] MEDS: atorvaSTATin 40 MG Tab PO SCH (20:12)
[2019-04-23] MEDS ORDERED: Amiodarone 200 MG Tab PO SCH (21:00)
[2019-04-24] MEDS ORDERED: Diltiazem 120 MG Cap.CD PO SCH
[2019-04-24] MEDS ORDERED: Metoprolol Tartrate 25 MG Tab PO SCH
[2019-04-24] MEDS ORDERED: Digoxin 125 MCG Tab PO SCH
[2019-04-24] MEDS ORDERED: Amiodarone 200 MG Tab PO SCH
[2019-04-24] MEDS: Acetaminophen 325 MG Tab PO PRN (02:14)
[2019-04-24 06:16] LABS: CHLORIDE,CL 104 mmol/L (98-107); SODIUM,NA 142 mmol/L (136-148)
--- NOTE | 2019-04-24 07:00 | PCM.DCSUM1 ---
Discharge Summary - Discharge Data Discharge Date: 04/24/19 Discharge Disposition: Home, Self-Care 01 Condition: Good - Patient Summary/Data Consults: Consultations 04/22/19 11:45 Consult to Physician [CONS] Urgent Hospital Course: 58 yo male with pmh of CVA, OH and DM who was admitted for atrial fibrillation/ flutter with RVR. He presented with chest pain, shortness of breath, and dizziness. His Heart rate on presentation was 150s. Chest x-ray and CT head showed no acute disease. Echocardiogram reported LVEF of 45%. He ruled out for acute coronary syndrome with serial negative cardiac enzymes. We initially tried to control his heart rate with IV diltiazem but due to hypotension we loaded him with IV amiodarone and digoxin. During his stay he became diaphoretic and had some mild delirium. Patient initially denied any illicit drug use. The urine screen was positive for meth and marijuana. He did admit to using Kratom. He was given Ativan as need for withdrawal symptoms. His heart rate was eventual controlled with oral medications and symptoms resolved. At discharge his lisinopril/HCTZ was discontinued and Metoprolol was increased to BID. He was started on Diltiazem 120mg daily, Amiodarone 200mg daily, and Digoxin 125 mcg daily. His Eliquis was resumed. He was recommended to have a sleep study. He is to follow up with Dr. Melendez and primary care at [facility]. - Discharge Plan Prescriptions/Med Rec: Amiodarone [Cordarone] 200 mg PO DAILY #30 tablet Digoxin 125 mcg PO DAILY #30 tablet Diltiazem [Cardizem CD] 120 mg PO DAILY #30 cap.cd Metoprolol Tartrate 25 mg PO BID #60 tablet Home Medications: Home Meds Apixaban [Eliquis] 04/20/19 [History] Baclofen 20 mg PO QID PRN 04/20/19 [History] Clopidogrel Bisulfate [Clopidogrel] 75 mg PO DAILY 04/20/19 [History] DULoxetine HCl [Duloxetine HCl] 1 tab PO DAILY 04/20/19 [History] Insulin Detemir [Levemir Flextouch] 16 units SQ BEDTIME 04/20/19 [History] Pantoprazole Sodium 40 mg PO DAILY 04/20/19 [History] Pregabalin [Lyrica] 150 mg PO QID 04/20/19 [History] metFORMIN [Glucophage] 2 tab PO BID 04/20/19 [History] traZODone HCl [Trazodone HCl] 100 mg PO BEDTIME 04/20/19 [History] Amiodarone [Cordarone] 200 mg PO DAILY #30 tablet 04/24/19 [Rx] Digoxin 125 mcg PO DAILY #30 tablet 04/24/19 [Rx] Diltiazem [Cardizem CD] 120 mg PO DAILY #30 cap.cd 04/24/19 [Rx] Metoprolol Tartrate 25 mg PO BID #60 tablet 04/24/19 [Rx] Patient Handouts: Atrial Flutter Forms: ED Department Discharge Referrals: PCP,None [Primary Care Provider] - - Discharge Summary/Plan Comment DC Time >30 min.: No - Patient Data Vitals - Most Recent: Last Vital Signs Temp 36.2 C 04/24/19 05:00 Pulse 88 04/24/19 01:00 Resp 15 04/24/19 06:00 BP 129/51 L 04/24/19 06:00 Pulse Ox 93 L 04/24/19 06:00 Weight - Most Recent: 102.4 kg I&O - Last 24 hours: Intake & Output 04/23/19 04/23/19 04/24/19 14:59 22:59 06:59 Intake Total 990 472 Output Total 975 Balance 990 -503 Lab Results - Last 24 hrs: Laboratory Results - last 24 hr 04/23/19 04/23/19 04/23/19 Range/Units 06:20 07:34 11:40 WBC (4.0-11.0) K/uL RBC (4.50-5.90) M/uL Hgb (13.0-17.0) g/dL Hct (38.0-50.0) % MCV (80.0-98.0) fL MCH (27.0-32.0) pg MCHC (31.0-37.0) g/dL RDW Std Deviation (28.0-62.0) fl RDW Coeff of Dennis (11.0-15.0) % Plt Count (150-400) K/uL MPV (7.40-12.00) fL Neut % (Auto) (48.0-80.0) % Lymph % (Auto) (16.0-40.0) % [place] % (Auto) (0.0-15.0) % Eos % (Auto) (0.0-7.0) % Baso % (Auto) (0.0-1.5) % Neut # (Auto) (1.4-5.7) K/uL Lymph # (Auto) (0.6-2.4) K/uL [place] # (Auto) (0.0-0.8) K/uL Eos # (Auto) (0.0-0.7) K/uL Baso # (Auto) (0.0-0.1) K/uL Nucleated RBC % /100WBC Nucleated RBCs # K/uL Sodium (136-148) mmol/L Potassium (3.5-5.1) mmol/L Chloride (98-107) mmol/L Carbon Dioxide (21.0-32.0) mmol/L BUN (7.0-18.0) mg/dL Creatinine (0.8-1.3) mg/dL Est Cr Clr Drug Dosing mL/min Estimated GFR (MDRD) ml/min Glucose (74-106) mg/dL POC Glucose 116 H 134 H (60-110) mg/dL Calcium (8.5-10.1) mg/dL B-Natriuretic Peptide 234 H (<100) PG/ML 04/23/19 04/23/19 04/24/19 Range/Units 16:54 20:05 02:07 WBC (4.0-11.0) K/uL RBC (4.50-5.90) M/uL Hgb (13.0-17.0) g/dL Hct (38.0-50.0) % MCV (80.0-98.0) fL MCH (27.0-32.0) pg MCHC (31.0-37.0) g/dL RDW Std Deviation (28.0-62.0) fl RDW Coeff of Dennis (11.0-15.0) % Plt Count (150-400) K/uL MPV (7.40-12.00) fL Neut % (Auto) (48.0-80.0) % Lymph % (Auto) (16.0-40.0) % [place] % (Auto) (0.0-15.0) % Eos % (Auto) (0.0-7.0) % Baso % (Auto) (0.0-1.5) % Neut # (Auto) (1.4-5.7) K/uL Lymph # (Auto) (0.6-2.4) K/uL [place] # (Auto) (0.0-0.8) K/uL Eos # (Auto) (0.0-0.7) K/uL Baso # (Auto) (0.0-0.1) K/uL Nucleated RBC % /100WBC Nucleated RBCs # K/uL Sodium (136-148) mmol/L Potassium (3.5-5.1) mmol/L Chloride (98-107) mmol/L Carbon Dioxide (21.0-32.0) mmol/L BUN (7.0-18.0) mg/dL Creatinine (0.8-1.3) mg/dL Est Cr Clr Drug Dosing mL/min Estimated GFR (MDRD) ml/min Glucose (74-106) mg/dL POC Glucose 175 H 78 129 H (60-110) mg/dL Calcium (8.5-10.1) mg/dL B-Natriuretic Peptide (<100) PG/ML 04/24/19 04/24/19 Range/Units 05:50 05:50 WBC 12.16 H (4.0-11.0) K/uL RBC 4.59 (4.50-5.90) M/uL Hgb 14.3 (13.0-17.0) g/dL Hct 43.6 (38.0-50.0) % MCV 95.0 (80.0-98.0) fL MCH 31.2 (27.0-32.0) pg MCHC 32.8 (31.0-37.0) g/dL RDW Std Deviation 49.9 (28.0-62.0) fl RDW Coeff of Dennis 15 (11.0-15.0) % Plt Count 255 (150-400) K/uL MPV 10.60 (7.40-12.00) fL Neut % (Auto) 60.2 (48.0-80.0) % Lymph % (Auto) 28.1 (16.0-40.0) % [place] % (Auto) 7.9 (0.0-15.0) % Eos % (Auto) 3.5 (0.0-7.0) % Baso % (Auto) 0.3 (0.0-1.5) % Neut # (Auto) 7.3 H (1.4-5.7) K/uL Lymph # (Auto) 3.4 H (0.6-2.4) K/uL [place] # (Auto) 1.0 H (0.0-0.8) K/uL Eos # (Auto) 0.4 (0.0-0.7) K/uL Baso # (Auto) 0.0 (0.0-0.1) K/uL Nucleated RBC % 0.0 /100WBC Nucleated RBCs # 0 K/uL Sodium 142 (136-148) mmol/L Potassium 4.0 (3.5-5.1) mmol/L Chloride 104 (98-107) mmol/L Carbon Dioxide 31.5 (21.0-32.0) mmol/L BUN 17 (7.0-18.0) mg/dL Creatinine 1.0 (0.8-1.3) mg/dL Est Cr Clr Drug Dosing 88.78 mL/min Estimated GFR (MDRD) > 60.0 ml/min Glucose 141 H (74-106) mg/dL POC Glucose (60-110) mg/dL Calcium 9.3 (8.5-10.1) mg/dL B-Natriuretic Peptide (<100) PG/ML [facility] Results - Last 24 hrs: Microbiology 04/20/19 18:27 Aerobic Blood Culture - Preliminary Blood - Venous - Lab Draw NO GROWTH AFTER 3 DAYS Anaerobic Blood Culture - Preliminary NO GROWTH AFTER 3 DAYS 04/20/19 17:20 Aerobic Blood Culture - Preliminary Blood - Venous NO GROWTH AFTER 3 DAYS Anaerobic Blood Culture - Final Med Orders - Current: Current Medications Acetaminophen (Tylenol) 650 mg PO Q6H PRN PRN Reason: Headache/Pain Last Admin: 04/24/19 02:14 Dose: 650 mg Albuterol/Ipratropium (Duoneb 3.0-0.5 Mg/3 Ml) 3 ml NEB Q4HRRT PRN PRN Reason: Wheezing Last Admin: 04/22/19 15:37 Dose: 3 ml Amiodarone HCl (Cordarone) 200 mg PO DAILY [facility] Last Admin: 04/23/19 20:12 Dose: 200 mg Apixaban (Eliquis) 5 mg PO BID [facility] Last Admin: 04/23/19 20:06 Dose: 5 mg Atorvastatin Calcium (Lipitor) 80 mg PO BEDTIME [facility] Last Admin: 04/23/19 20:12 Dose: 80 mg Baclofen (Lioresal) 20 mg PO QID PRN PRN Reason: Muscle Spasm Last Admin: 04/23/19 16:24 Dose: 20 mg Digoxin (Lanoxin) 125 mcg PO DAILY [facility] Last Admin: 04/23/19 09:16 Dose: 125 mcg Diltiazem HCl (Cardizem Cd) 120 mg PO DAILY [facility] Last Admin: 04/23/19 09:20 Dose: 120 mg Folic Acid (Folic Acid) 1 mg PO BEDTIME [facility] Last Admin: 04/23/19 20:12 Dose: 1 mg Sodium Chloride (Normal Saline) 1,000 mls @ 125 mls/hr IV ASDIRECTED [facility] Last Admin: 04/21/19 16:12 Dose: 125 mls/hr Sodium Chloride (Normal Saline) 500 mls @ 500 mls/hr IV .BOLUS [facility] Last Admin: 04/21/19 18:06 Dose: 500 mls/hr Insulin Aspart (Novolog) 0 unit SUBCUT TIDAC [facility]; Protocol Last Admin: 04/23/19 17:08 Dose: 2 unit Insulin Detemir (Levemir) 16 unit SUBCUT BEDTIME [facility] Last Admin: 04/23/19 20:06 Dose: Not Given Lorazepam (Ativan) 1 mg PO Q4H PRN PRN Reason: Agitation Last Admin: 04/23/19 16:25 Dose: 1 mg Metformin HCl (Glucophage) 1,000 mg PO BIDMEALS [facility] Last Admin: 04/23/19 16:24 Dose: 1,000 mg Metoprolol Succinate (Toprol Xl) 25 mg PO BID [facility] Last Admin: 04/23/19 20:07 Dose: 25 mg Nicotine (Habitrol) 21 mg TRDERM DAILY [facility] Last Admin: 04/23/19 09:15 Dose: 21 mg Pantoprazole Sodium (Protonix) 40 mg PO DAILY [facility] Last Admin: 04/23/19 09:15 Dose: 40 mg Pregabalin (Lyrica) 150 mg PO BID [facility] Last Admin: 04/23/19 20:06 Dose: 150 mg Quetiapine Fumarate (Seroquel) 50 mg PO BEDTIME [facility] Last Admin: 04/23/19 20:06 Dose: 50 mg Thiamine HCl (Vitamin B-1) 100 mg PO BEDTIME [facility] Last Admin: 04/23/19 20:06 Dose: 100 mg Trazodone HCl (Trazodone) 100 mg PO BEDTIME [facility] Last Admin: 04/23/19 20:12 Dose: 100 mg Discontinued Medications Amiodarone HCl (Cordarone) 200 mg PO DAILY [facility] Last Admin: 04/22/19 11:50 Dose: 200 mg Digoxin (Lanoxin) 250 mcg IVPUSH ONETIME ONE Stop: 04/21/19 10:38 Last Admin: 04/21/19 12:14 Dose: 250 mcg Digoxin (Lanoxin) 250 mcg IVPUSH ONETIME ONE Stop: 04/21/19 17:41 Last Admin: 04/21/19 18:03 Dose: 250 mcg Digoxin (Lanoxin) 250 mcg IVPUSH ONETIME ONE Stop: 04/21/19 21:01 Last Admin: 04/21/19 20:28 Dose: 250 mcg Digoxin (Lanoxin) 250 mcg IVPUSH ONETIME ONE Stop: 04/22/19 09:45 Last Admin: 04/22/19 11:50 Dose: 250 mcg Diltiazem HCl (Diltiazem) 20 mg IVPUSH ONETIME ONE Stop: 04/20/19 17:24 Last Admin: 04/20/19 17:30 Dose: 20 mg Diltiazem HCl (Diltiazem) Confirm Administered Dose 25 mg .ROUTE .STK-MED ONE Stop: 04/20/19 17:26 Last Admin: 04/20/19 17:36 Dose: Not Given Diltiazem HCl (Diltiazem) 20 mg IVPUSH ONETIME ONE Stop: 04/20/19 18:55 Last Admin: 04/20/19 18:59 Dose: 20 mg Diltiazem HCl (Diltiazem) 10 mg IVPUSH Q3HR PRN PRN Reason: for heart rate >100 Last Admin: 04/21/19 16:43 Dose: 10 mg Diltiazem HCl (Cardizem) 30 mg PO Q6HR [facility] Last Admin: 04/22/19 05:14 Dose: 30 mg Diltiazem HCl (Cardizem) 30 mg PO ONETIME ONE Stop: 04/22/19 13:58 Last Admin: 04/22/19 13:57 Dose: 30 mg Diltiazem HCl (Cardizem) 30 mg PO Q6HR [facility] Last Admin: 04/22/19 18:39 Dose: 30 mg Duloxetine HCl (Cymbalta) 60 mg PO DAILY [facility] Last Admin: 04/22/19 08:43 Dose: 60 mg Furosemide (Lasix) 40 mg IVPUSH NOW ONE Stop: 04/21/19 19:40 Last Admin: 04/21/19 20:03 Dose: 40 mg Lisinopril/HCTZ (Lisinopril-Hctz 10-12.5 Mg) 2 tab PO DAILY [facility] Sodium Chloride (Normal Saline) 1,000 mls @ 999 mls/hr IV STAT ONE Stop: 04/20/19 17:53 Last Admin: 04/20/19 17:07 Dose: 999 mls/hr Diltiazem HCl 100 mg/ Sodium (Chloride) 100 mls @ 5 mls/hr IV TITRATE [facility]; Protocol Amiodarone HCl/Dextrose (Nexterone In Dextrose 150 Mg/100 Ml) 100 mls @ 600 mls /hr IV ONETIME ONE; Protocol Stop: 04/21/19 00:37 Last Admin: 04/21/19 00:39 Dose: 600 mls/hr Amiodarone HCl/Dextrose (Nexterone In Dextrose 360 Mg/200 Ml) 360 mg in 200 mls @ 33.333 mls/hr IV ASDIRECTED [facility]; Protocol Last Admin: 04/21/19 00:49 Dose: 1 mg/min, 33.333 mls/hr Amiodarone HCl/Dextrose (Nexterone In Dextrose 360 Mg/200 Ml) 360 mg in 200 mls @ 16.667 mls/hr IV ASDIRECTED [facility]; Protocol Last Admin: 04/21/19 18:03 Dose: 0.5 mg/min, 16.667 mls/hr Levofloxacin/Dextrose 750 mg/ (Premix) 150 mls @ 100 mls/hr IV Q24H [facility] Last Admin: 04/21/19 20:27 Dose: 100 mls/hr Multivitamins/Minerals 10 ml/Thiamine HCl 100 mg/ Folic Acid 1 mg/ Sodium Chloride 1,011.2 mls @ 250 mls/hr IV ONETIME ONE Stop: 04/22/19 17:22 Last Admin: 04/22/19 13:45 Dose: 250 mls/hr Amiodarone HCl/Dextrose (Nexterone In Dextrose 360 Mg/200 Ml) 360 mg in 200 mls @ 16.667 mls/hr IV ASDIRECTED [facility]; Protocol Stop: 04/23/19 20:01 Last Admin: 04/23/19 07:17 Dose: 0.5 mg/min, 16.667 mls/hr Insulin Human Regular (Novolin R) 5 unit SUBCUT NOW STA; Protocol Stop: 04/20/19 18:27 Last Admin: 04/20/19 18:37 Dose: Not Given Lorazepam (Ativan) 1 mg IVPUSH Q6H PRN PRN Reason: anxiety,agitation, CIWAA Last Admin: 04/21/19 16:42 Dose: 1 mg Lorazepam (Ativan) 1 mg IVPUSH Q4H PRN PRN Reason: anxiety,agitation, CIWAA Lorazepam (Ativan) 1 mg IVPUSH Q2H PRN PRN Reason: anxiety,agitation, CIWAA Last Admin: 04/23/19 12:26 Dose: 1 mg Metformin HCl (Glucophage) 500 mg PO BIDMEALS [facility] Metformin HCl (Glucophage Xr) 1,000 mg PO BIDMEALS [facility] Metoprolol Succinate (Toprol Xl) 50 mg PO DAILY [facility] Last Admin: 04/21/19 08:00 Dose: 50 mg Metoprolol Succinate (Toprol Xl) 50 mg PO BID [facility] Last Admin: 04/21/19 20:33 Dose: Not Given Metoprolol Tartrate (Lopressor) 5 mg IVPUSH Q5M [facility] Stop: 04/20/19 17:11 Last Admin: 04/20/19 21:08 Dose: Not Given Metoprolol Tartrate (Lopressor) 25 mg PO DAILY [facility] Pantoprazole Sodium (Protonix) 20 mg PO DAILY [facility] Last Admin: 04/20/19 21:57 Dose: Not Given Pregabalin (Lyrica) 150 mg PO QID [facility] Last Admin: 04/22/19 06:17 Dose: Not Given
--- NOTE | 2019-04-28 14:16 | ECHO ---
The echocardiogram report can be seen in this patient's EMR (Electronic Medical Record) in the Reports section. The echocardiogram report has been scanned into PACS and can be seen there as well. ALDO
== END 2019-04-24 07:30 | disposition home or self-care (01) | DRG 309 ==
LOC: MW.ED 16:38 → MW.MS 18:31 → OBSVTOIN 04-21 00:03 → MW.ICU 04-21 00:04
PROVIDERS: ADMIT Internal Medicine; ATTEND Internal Medicine
DX: I48.91 Unspecified atrial fibrillation (principal); F05 Delirium due to known physiological condition; I25.10 Atherosclerotic heart disease of native coronary artery without angina pectoris; I48.92 Unspecified atrial flutter; I10 Essential (primary) hypertension; Z86.718 Personal history of other venous thrombosis and embolism; J44.9 Chronic obstructive pulmonary disease, unspecified; K21.9 Gastro-esophageal reflux disease without esophagitis; G89.29 Other chronic pain; M54.9 Dorsalgia, unspecified; Z86.73 Personal history of transient ischemic attack (TIA), and cerebral infarction without residual deficits; F32.9 Major depressive disorder, single episode, unspecified; F17.210 Nicotine dependence, cigarettes, uncomplicated; F19.10 Other psychoactive substance abuse, uncomplicated; F41.9 Anxiety disorder, unspecified; E11.9 Type 2 diabetes mellitus without complications; I25.2 Old myocardial infarction; F17.200 Nicotine dependence, unspecified, uncomplicated; Z79.01 Long term (current) use of anticoagulants; Z79.02 Long term (current) use of antithrombotics/antiplatelets; Z79.4 Long term (current) use of insulin; Z79.899 Other long term (current) drug therapy; Z91.030 Bee allergy status; Z91.14 Patient's other noncompliance with medication regimen; I95.9 Hypotension, unspecified
CPT/HCPCS: 36415; 71045; 80053; 80305; 81001; 82550; 82962 ×2; 84484 ×2; 85025; 85610; 87040 ×2; 96361; 96374; 96376; 99285; A9270 ×7; J1815; J3490 ×5; J7040 ×2; 70450; 70450-26; 80048; 83605; 83735; 83880; 85007; 85027; 93005; 93306; 94640; 99283; A4217; J0282; J1160; J1940; J1956; J2060; J3411; J7620-GY

== ENCOUNTER 2019-07-22 10:34 | Inpatient (IN) | payer MEDICARE ==
[2019-07-22] MEDS ORDERED: Sodium Chloride 0.9% 2.5 ML Syringe FLUSH PRN ×2 (11:05)
[2019-07-22] MEDS ORDERED: Nitroglycerin 0.4 MG Tab.SL SL STA (11:05)
[2019-07-22] MEDS ORDERED: Sodium Chloride 0.9% 10 ML Syringe FLUSH PRN (11:05)
[2019-07-22] MEDS ORDERED: Aspirin 81 MG Tab.Chew PO STA (11:05)
[2019-07-22] MEDS ORDERED: Pantoprazole 40 MG in Sodium Chloride 0.9% 10 ML IV ONE (11:12)
[2019-07-22] MEDS ORDERED: Sodium Chloride 0.9% 1,000 ML IV ONE (11:15)
--- NOTE | 2019-07-22 11:15 | EDM.PDOC ---
ED HPI GENERAL MEDICAL PROBLEM - General Chief Complaint: Respiratory Problem Stated Complaint: CHEST PAIN,SOB Time Seen by Provider: 07/22/19 10:56 Source of Information: Reports: Patient - History of Present Illness INITIAL COMMENTS - FREE TEXT/NARRATIVE: HISTORY AND PHYSICAL: History of present illness: 59-year-old male presented to the ER with shortness of breath and chest tightness that started at approximately 3 AM this morning. He does have a past medical history of CVA, CA, DVT, PE, diabetes mellitus type 2, and atrial fibrillation on Eliquis. Patient reports that he was asleep and then woke up and felt short of breath and experienced the chest tightness. He reports that his symptoms have been constant since this morning. The chest tightness is located substernally, does not worsen with exertion and is not alleviated by rest. Patient reports that he has also had sweats. He reports taking a full dose of aspirin 325 mg approximately 3 hours prior to ED arrival. Patient does report that he was cardioverted in [place] yesterday for his history of atrial fibrillation and was in his normal state of health last night. Current everyday smoker. He does report history of PE in the past and lives mostly sedentary lifestyle. EKG on presentation showed sinus rhythm. Review of systems: As per history of present illness and below otherwise all systems reviewed and negative. Past medical history: As per history of present illness and as reviewed below otherwise noncontributory. Surgical history: As per history of present illness and as reviewed below otherwise noncontributory. Social history: No reported history of drug or alcohol abuse. Family history: As per history of present illness and as reviewed below otherwise noncontributory. Physical exam: HEENT: Atraumatic, normocephalic, pupils reactive, negative for conjunctival pallor or scleral icterus, mucous membranes moist, throat clear, neck supple, nontender, trachea midline. Lungs: Clear to auscultation. Heart: regular rate and rhythm. No chest wall tenderness. Abdomen: Soft, nondistended, nontender. Genitourinary: Deferred. Rectal: Deferred. Extremities: No lower extremity edema appreciated bilaterally. No calf tenderness bilaterally. Neuro: Awake, alert, oriented. Cranial nerves II through XII unremarkable. No focal neurological deficits appreciated. Diagnostics: CBC, CMP, TROP, EKG, CXR Therapeutics: nitroglycerin, IV pantoprazole, duonebs Impression: 1. Atypical chest pain, ACS rule out. 2. Dyspnea. Plan: Patient care transitioned to ER provider Dr. Altamirano at 12:15 pm. Patient admitted to general medical floor by hospitalist Dr. Nguyen. Definitive disposition and diagnosis as appropriate pending reevaluation and review of above. L chest Pain Score (Numeric/FACES): 5 - Related Data Allergies Allergy/AdvReac Type Severity Reaction Status Date / Time bee venom protein (honey bee) Allergy Anaphylactic Verified 07/22/19 10:47 Shock Home Meds: Home Meds Apixaban [Eliquis] 5 mg PO BID 04/20/19 [History] DULoxetine HCl [Duloxetine HCl] 1 tab PO DAILY 04/20/19 [History] Insulin Detemir [Levemir Flextouch] 16 units SQ BEDTIME 04/20/19 [History] Pantoprazole Sodium 40 mg PO DAILY 04/20/19 [History] Pregabalin [Lyrica] 150 mg PO QID 04/20/19 [History] metFORMIN [Glucophage] 2 tab PO BID 04/20/19 [History] traZODone HCl [Trazodone HCl] 100 mg PO BEDTIME 04/20/19 [History] Amiodarone [Cordarone] 200 mg PO DAILY #30 tablet 04/24/19 [Rx] Digoxin 125 mcg PO DAILY #30 tablet 04/24/19 [Rx] Metoprolol Tartrate 25 mg PO BID #60 tablet 04/24/19 [Rx] Diltiazem [Cardizem CD] 120 mg PO DAILY 07/22/19 [History] Metoprolol Succinate 100 mg PO DAILY 07/22/19 [History] QUEtiapine [SEROquel] 50 mg PO BEDTIME 07/22/19 [History] Past Medical History Cardiovascular History: Reports: Blood Clots/VTE/DVT, CAD, Hypertension Respiratory History: Reports: COPD Gastrointestinal History: Reports: Bowel Obstruction, GERD, Other (See Below) Other Gastrointestinal History: Intestinal rupture Musculoskeletal History: Reports: Back Pain, Chronic, Fracture Neurological History: Reports: CVA Other Neuro History: 3 strokes in the last 1.5 years Psychiatric History: Reports: Anxiety, Depression Endocrine/Metabolic History: Reports: Diabetes, Type II - Infectious Disease History Infectious Disease History: Reports: Chicken Pox - Past Surgical History Cardiovascular Surgical History: Reports: None Other Cardiovascular Surgeries/Procedures: recent cardiac procedure for irregular HR; unsure of what it was GI Surgical History: Reports: Colonoscopy, Small Bowel Musculoskeletal Surgical History: Reports: Other (See Below) Other Musculoskeletal Surgeries/Procedures:: 6 back surgeries, 2 neck surgeries , titanium plate in neck, titanium plate in lower back Social & Family History - Family History Family Medical History: Noncontributory - Tobacco Use Smoking Status *Q: Current Every Day Smoker Years of Tobacco use: 40 Packs/Tins Daily: 0.5 - Caffeine Use Caffeine Use: Reports: Coffee, Soda - Recreational Drug Use Recreational Drug Use: Yes Recreational Drug Type: Reports: Marijuana/Hashish Recreational Drug Use Frequency: Daily ED ROS GENERAL - Review of Systems Review Of Systems: ROS reveals no pertinent complaints other than HPI. ED EXAM, GENERAL - Physical Exam Exam: See Below Course - Vital Signs Last Recorded V/S: Last Vital Signs Temp 96.3 F 07/22/19 10:43 Pulse 84 07/22/19 12:20 Resp 15 07/22/19 11:29 BP 120/86 07/22/19 12:20 Pulse Ox 95 07/22/19 12:20 - Orders/Labs/Meds Orders: Active Orders 24 hr Category Date Time Status EKG Documentation Completion [RC] STAT Care 07/22/19 11:05 Active Oxygen Therapy [RC] ASDIRECTED Care 07/22/19 11:05 Active Pulse Oximetry [RC] ASDIRECTED Care 07/22/19 11:05 Active RT Aerosol Therapy [RC] ASDIRECTED Care 07/22/19 11:59 Active Nitroglycerin [Nitrostat] Med 07/22/19 11:42 Active 0.4 mg SL Q5M PRN Sodium Chloride 0.9% [Normal Saline] 1,000 ml Med 07/22/19 11:15 Active IV STAT Sodium Chloride 0.9% [Saline Flush] Med 07/22/19 11:05 Active 10 ml FLUSH ASDIRECTED PRN Sodium Chloride 0.9% [Saline Flush] Med 07/22/19 11:05 Active 2.5 ml FLUSH ASDIRECTED PRN Sodium Chloride 0.9% [Saline Flush] Med 07/22/19 11:05 Active 2.5 ml FLUSH ASDIRECTED PRN Saline Lock Insert [OM.PC] Stat Oth 07/22/19 11:05 Ordered Medication Orders Sodium Chloride (Normal Saline) 1,000 mls @ 150 mls/hr IV STAT ONE Stop: 07/22/19 17:54 Last Admin: 07/22/19 11:28 Dose: 150 mls/hr Nitroglycerin (Nitrostat) 0.4 mg SL Q5M PRN PRN Reason: Chest Pain Last Admin: 07/22/19 11:52 Dose: 0.4 mg Admin: 07/22/19 11:44 Dose: 0.4 mg Sodium Chloride (Saline Flush) 2.5 ml FLUSH ASDIRECTED PRN PRN Reason: Keep Vein Open Sodium Chloride (Saline Flush) 10 ml FLUSH ASDIRECTED PRN PRN Reason: Keep Vein Open Sodium Chloride (Saline Flush) 2.5 ml FLUSH ASDIRECTED PRN PRN Reason: Keep Vein Open Labs: Laboratory Tests 07/22/19 07/22/19 07/22/19 Range/Units 11:28 11:28 11:28 WBC 12.87 H (4.0-11.0) K/uL RBC 4.45 L (4.50-5.90) M/uL Hgb 14.0 (13.0-17.0) g/dL Hct 42.8 (38.0-50.0) % MCV 96.2 (80.0-98.0) fL MCH 31.5 (27.0-32.0) pg MCHC 32.7 (31.0-37.0) g/dL RDW Std Deviation 55.7 (28.0-62.0) fl RDW Coeff of Dennis 16 H (11.0-15.0) % Plt Count 423 H (150-400) K/uL MPV 10.30 (7.40-12.00) fL Neut % (Auto) 61.0 (48.0-80.0) % Lymph % (Auto) 27.8 (16.0-40.0) % [place] % (Auto) 9.9 (0.0-15.0) % Eos % (Auto) 1.0 (0.0-7.0) % Baso % (Auto) 0.3 (0.0-1.5) % Neut # (Auto) 7.8 H (1.4-5.7) K/uL Lymph # (Auto) 3.6 H (0.6-2.4) K/uL [place] # (Auto) 1.3 H (0.0-0.8) K/uL Eos # (Auto) 0.1 (0.0-0.7) K/uL Baso # (Auto) 0.0 (0.0-0.1) K/uL Nucleated RBC % 0.0 /100WBC Nucleated RBCs # 0 K/uL INR 1.13 Sodium 139 (136-148) mmol/L Potassium 4.0 (3.5-5.1) mmol/L Chloride 103 (98-107) mmol/L Carbon Dioxide 24.3 (21.0-32.0) mmol/L BUN 12 (7.0-18.0) mg/dL Creatinine 0.8 (0.8-1.3) mg/dL Est Cr Clr Drug Dosing 109.59 mL/min Estimated GFR (MDRD) > 60.0 ml/min Glucose 156 H (74-106) mg/dL Calcium 8.1 L (8.5-10.1) mg/dL Total Bilirubin 0.7 (0.2-1.0) mg/dL AST 25 (15-37) IU/L ALT 36 (14-63) IU/L Alkaline Phosphatase 125 H (46-116) U/L Troponin I < 0.050 (0.000-0.056) ng/mL Total Protein 6.6 (6.4-8.2) g/dL Albumin 2.0 L (3.4-5.0) g/dL Globulin 4.6 H (2.6-4.0) g/dL Albumin/Globulin Ratio 0.4 L (0.9-1.6) Meds: Medications Generic Name Dose Route Start Last Admin Trade Name Freq PRN Reason Stop Dose Admin Sodium Chloride 1,000 mls @ 150 mls/hr 07/22/19 11:15 07/22/19 11:28 Normal Saline IV 07/22/19 17:54 150 mls/hr STAT ONE Administration Nitroglycerin 0.4 mg 07/22/19 11:42 07/22/19 11:52 Nitrostat SL 0.4 mg Q5M PRN Administration Chest Pain Sodium Chloride 2.5 ml 07/22/19 11:05 Saline Flush FLUSH ASDIRECTED PRN Keep Vein Open Sodium Chloride 10 ml 07/22/19 11:05 Saline Flush FLUSH ASDIRECTED PRN Keep Vein Open Sodium Chloride 2.5 ml 07/22/19 11:05 Saline Flush FLUSH ASDIRECTED PRN Keep Vein Open Discontinued Medications Generic Name Dose Route Start Last Admin Trade Name Freq PRN Reason Stop Dose Admin Albuterol/Ipratropium 3 ml 07/22/19 11:58 07/22/19 12:12 Duoneb 3.0-0.5 Mg/3 Ml NEB 07/22/19 11:59 3 ml ONETIME ONE Administration Aspirin 324 mg 07/22/19 11:05 07/22/19 11:28 Aspirin PO 07/22/19 11:06 Not Given ONETIME STA Pantoprazole Sodium 40 mg/ 10 mls @ 300 mls/hr 07/22/19 11:12 07/22/19 11:38 Sodium Chloride IV 07/22/19 11:13 300 mls/hr NOW ONE Administration Nitroglycerin 0.4 mg 07/22/19 11:05 07/22/19 11:29 Nitrostat SL 07/22/19 11:06 0.4 mg ONETIME STA Administration - Re-Assessments/Exams Free Text/Narrative Re-Assessment/Exam: 07/22/19 12:10 Troponin negative. Patient notes improvement in chest pain after nitroglycerin. Departure - Departure Time of Disposition: 12:15 Disposition: Refer to Observation Condition: Fair Clinical Impression: Atypical chest pain, Dyspnea - My Orders Last 24 Hours: My Active Orders 07/22/19 11:05 EKG Documentation Completion [RC] STAT Oxygen Therapy [RC] ASDIRECTED Pulse Oximetry [RC] ASDIRECTED Sodium Chloride 0.9% [Saline Flush] 10 ml FLUSH ASDIRECTED PRN Sodium Chloride 0.9% [Saline Flush] 2.5 ml FLUSH ASDIRECTED PRN Sodium Chloride 0.9% [Saline Flush] 2.5 ml FLUSH ASDIRECTED PRN Saline Lock Insert [OM.PC] Stat 07/22/19 11:15 Sodium Chloride 0.9% [Normal Saline] 1,000 ml IV STAT 07/22/19 11:42 Nitroglycerin [Nitrostat] 0.4 mg SL Q5M PRN 07/22/19 11:59 RT Aerosol Therapy [RC] ASDIRECTED - Assessment/Plan Last 24 Hours: My Active Orders 07/22/19 11:05 EKG Documentation Completion [RC] STAT Oxygen Therapy [RC] ASDIRECTED Pulse Oximetry [RC] ASDIRECTED Sodium Chloride 0.9% [Saline Flush] 10 ml FLUSH ASDIRECTED PRN Sodium Chloride 0.9% [Saline Flush] 2.5 ml FLUSH ASDIRECTED PRN Sodium Chloride 0.9% [Saline Flush] 2.5 ml FLUSH ASDIRECTED PRN Saline Lock Insert [OM.PC] Stat 07/22/19 11:15 Sodium Chloride 0.9% [Normal Saline] 1,000 ml IV STAT 07/22/19 11:42 Nitroglycerin [Nitrostat] 0.4 mg SL Q5M PRN 07/22/19 11:59 RT Aerosol Therapy [RC] ASDIRECTED
[2019-07-22] MEDS: Nitroglycerin 0.4 MG Tab.SL SL PRN ×2 (11:44→11:52)
[2019-07-22] MEDS ORDERED: Albuterol/Ipratropium 3.0-0.5 MG/3 ML Neb Soln NEB ONE (11:58)
[2019-07-22 12:01] LABS: BLOOD UREA NITROGEN,BUN 12 mg/dL (7.0-18.0); CARBON DIOXIDE,CO2 24.3 mmol/L (21.0-32.0); CHLORIDE,CL 103 mmol/L (98-107); GLUCOSE RANDOM 156 mg/dL (74-106); SODIUM,NA 139 mmol/L (136-148)
--- NOTE | 2019-07-22 12:33 | CR ---
Chest: Portable view of the chest was obtained. Comparison: Prior chest x-ray of 04/21/19. Findings: Heart is enlarged. Interstitial changes are seen within both lungs which remains stable from prior chest x-ray. No alveolar type change is seen. Prior cervical spine surgery is noted. Bony structures are grossly intact. Impression: Stable cardiomegaly with stable interstitial change. When compared to prior chest x-ray, nothing acute is appreciated. Diagnostic code #3 MTDD
--- NOTE | 2019-07-22 13:07 | CT ---
CT chest Technique: Multiple axial sections through the chest were obtained. Intravenous contrast was utilized. Study has been performed as a pulmonary angiogram protocol. Findings: Pulmonary arteries are moderately well-opacified. No filling defects are seen within the main or segmental branches. Smaller subsegmental pulmonary emboli could be missed. Small to moderate sized bilateral pleural effusions are noted. Mild coronary artery calcification is seen. Aorta shows atherosclerotic calcification without aneurysm. Slightly prominent mediastinal lymph nodes are seen. Largest lymph node measures approximately 2.2 cm. No axillary adenopathy is seen. Emphysematous changes are seen within both lungs. Hazy groundglass appearance is seen suggestive of mild pulmonary vascular congestion. Impression: 1. No findings of pulmonary embolism within the main or segmental branches. Smaller subsegmental pulmonary emboli could be missed. 2. Small to moderate sized bilateral pleural effusions. 3. Emphysematous change. Hazy groundglass appearance suggesting possibility of pulmonary vascular congestion. Diagnostic code #3 MTDD
[2019-07-22] MEDS ORDERED: FLU Vacc QS2019-20(6MOS+)/PF 60 MCG/0.5 ML SYRINGE IM ONE (14:30)
[2019-07-22] MEDS ORDERED: Furosemide 40 MG/4 ML VIAL IVPUSH ONE (15:32)
--- NOTE | 2019-07-22 15:36 | PCM.HP.2 ---
H&P History of Present Illness - General Date of Service: 07/22/19 Admit Problem/Dx: Admission Diagnosis/Problem Admission Diagnosis/Problem Chest pain - History of Present Illness Initial Comments - Free Text/Narative: 59 yo male with pmh of atrial flutter, CVA, VT and DM who was cardioverted by Dr. Melendez after [facility] yesterday in [place]. Patient reports he woke up this morning with shortness of breath and chest pressure. He denies any cough or fevers. The pain lasted until he took nitro in the ED. CT angio in the ER reported no PE but showed some ground glass opacities suggesting possible pulmonary vascular congestion. L chest Pain Score (Numeric/FACES): 5 - Related Data Allergies/Adverse Reactions: Allergies Allergy/AdvReac Type Severity Reaction Status Date / Time bee venom protein (honey bee) Allergy Anaphylactic Verified 07/22/19 13:35 Shock Home Medications: Home Meds Apixaban [Eliquis] 5 mg PO BID 04/20/19 [History] DULoxetine HCl [Duloxetine HCl] 1 tab PO DAILY 04/20/19 [History] Insulin Detemir [Levemir Flextouch] 16 units SQ BEDTIME 04/20/19 [History] Pantoprazole Sodium 40 mg PO DAILY 04/20/19 [History] Pregabalin [Lyrica] 150 mg PO QID 04/20/19 [History] metFORMIN [Glucophage] 2 tab PO BID 04/20/19 [History] traZODone HCl [Trazodone HCl] 100 mg PO BEDTIME 04/20/19 [History] Amiodarone [Cordarone] 200 mg PO DAILY #30 tablet 04/24/19 [Rx] Digoxin 125 mcg PO DAILY #30 tablet 04/24/19 [Rx] Metoprolol Tartrate 25 mg PO BID #60 tablet 04/24/19 [Rx] Diltiazem [Cardizem CD] 120 mg PO DAILY 07/22/19 [History] Metoprolol Succinate 100 mg PO DAILY 07/22/19 [History] QUEtiapine [SEROquel] 50 mg PO BEDTIME 07/22/19 [History] Past Medical History Cardiovascular History: Reports: Blood Clots/VTE/DVT, CAD, Hypertension Respiratory History: Reports: COPD Gastrointestinal History: Reports: Bowel Obstruction, GERD, Other (See Below) Other Gastrointestinal History: Intestinal rupture Musculoskeletal History: Reports: Back Pain, Chronic, Fracture Neurological History: Reports: CVA Other Neuro History: 3 strokes in the last 1.5 years Psychiatric History: Reports: Anxiety, Depression Endocrine/Metabolic History: Reports: Diabetes, Type II - Infectious Disease History Infectious Disease History: Reports: Chicken Pox - Past Surgical History Cardiovascular Surgical History: Reports: None Other Cardiovascular Surgeries/Procedures: Cardiac procedure yesterday? for Irregular HR GI Surgical History: Reports: Colonoscopy, Small Bowel Musculoskeletal Surgical History: Reports: Other (See Below) Other Musculoskeletal Surgeries/Procedures:: 6 back surgeries, 2 neck surgeries , titanium plate in neck, titanium plate in lower back Social & Family History - Family History Family Medical History: Noncontributory - Tobacco Use Smoking Status *Q: Current Every Day Smoker Years of Tobacco use: 48 Packs/Tins Daily: 0.7 - Caffeine Use Caffeine Use: Reports: Coffee - Recreational Drug Use Recreational Drug Use: Yes Drug Use in Last 12 Months: Yes Recreational Drug Type: Reports: Marijuana/Hashish, Methamphetamine Recreational Drug Use Frequency: Daily H&P Review of Systems - Review of Systems: Review Of Systems: ROS reveals no pertinent complaints other than HPI. Exam - Exam Exam: See Below - Vital Signs Vital Signs: Last Vital Signs Temp 35.7 C 07/22/19 10:43 Pulse 84 07/22/19 12:20 Resp 15 07/22/19 11:29 BP 120/86 07/22/19 12:20 Pulse Ox 95 07/22/19 12:20 Weight: 101.151 kg - Exam General: Alert, Oriented HEENT: Mucosa Moist & [place] Lungs: Clear to Auscultation, Normal Respiratory Effort Cardiovascular: Regular Rate, Regular Rhythm GI/Abdominal Exam: Soft, Non-Tender, No Distention Extremities: Non-Tender, No Pedal Edema Skin: Warm, Dry, Intact - Patient Data Lab Results Last 24 hrs: Laboratory Results - last 24 hr 07/22/19 07/22/19 07/22/19 Range/Units 11:28 11:28 11:28 WBC 12.87 H (4.0-11.0) K/uL RBC 4.45 L (4.50-5.90) M/uL Hgb 14.0 (13.0-17.0) g/dL Hct 42.8 (38.0-50.0) % MCV 96.2 (80.0-98.0) fL MCH 31.5 (27.0-32.0) pg MCHC 32.7 (31.0-37.0) g/dL RDW Std Deviation 55.7 (28.0-62.0) fl RDW Coeff of Dennis 16 H (11.0-15.0) % Plt Count 423 H (150-400) K/uL MPV 10.30 (7.40-12.00) fL Neut % (Auto) 61.0 (48.0-80.0) % Lymph % (Auto) 27.8 (16.0-40.0) % [place] % (Auto) 9.9 (0.0-15.0) % Eos % (Auto) 1.0 (0.0-7.0) % Baso % (Auto) 0.3 (0.0-1.5) % Neut # (Auto) 7.8 H (1.4-5.7) K/uL Lymph # (Auto) 3.6 H (0.6-2.4) K/uL [place] # (Auto) 1.3 H (0.0-0.8) K/uL Eos # (Auto) 0.1 (0.0-0.7) K/uL Baso # (Auto) 0.0 (0.0-0.1) K/uL Nucleated RBC % 0.0 /100WBC Nucleated RBCs # 0 K/uL INR 1.13 Sodium 139 (136-148) mmol/L Potassium 4.0 (3.5-5.1) mmol/L Chloride 103 (98-107) mmol/L Carbon Dioxide 24.3 (21.0-32.0) mmol/L BUN 12 (7.0-18.0) mg/dL Creatinine 0.8 (0.8-1.3) mg/dL Est Cr Clr Drug Dosing 109.59 mL/min Estimated GFR (MDRD) > 60.0 ml/min Glucose 156 H (74-106) mg/dL Calcium 8.1 L (8.5-10.1) mg/dL Total Bilirubin 0.7 (0.2-1.0) mg/dL AST 25 (15-37) IU/L ALT 36 (14-63) IU/L Alkaline Phosphatase 125 H (46-116) U/L Troponin I < 0.050 (0.000-0.056) ng/mL Total Protein 6.6 (6.4-8.2) g/dL Albumin 2.0 L (3.4-5.0) g/dL Globulin 4.6 H (2.6-4.0) g/dL Albumin/Globulin Ratio 0.4 L (0.9-1.6) Result Diagrams: 07/22/19 11:28 07/22/19 11:28 Problem List Initiated/Reviewed/Updated: Yes Orders Last 24hrs: Active Orders 24 hr Category Date Time Status Patient Status [ADT] Stat ADT 07/22/19 12:17 Active EKG Documentation Completion [RC] STAT Care 07/22/19 11:05 Active Influenza Vaccine Charge [RC] .DISCHARGE Care 07/22/19 14:17 Active Oxygen Therapy [RC] ASDIRECTED Care 07/22/19 11:05 Active RT Aerosol Therapy [RC] ASDIRECTED Care 07/22/19 11:59 Active [employer] Diet [DIET] Diet 07/22/19 Dinner Active Echo Comp wo Cont [US] Routine Exams 07/22/19 15:31 Ordered B-TYPE NATRIURETIC PEPTIDE,BNP [CHEM] Routine Lab 07/22/19 15:31 Ordered TROPONIN I [CHEM] Q6H Lab 07/22/19 18:00 Ordered TROPONIN I [CHEM] Q6H Lab 07/23/19 00:00 Ordered UA W/NORMA RFLX IF INDICATED [URIN] Routine Lab 07/22/19 14:48 Ordered Amiodarone [Cordarone] Med 07/23/19 09:00 Active 200 mg PO DAILY Apixaban [Eliquis] Med 07/22/19 21:00 Active 5 mg PO BID Digoxin [Lanoxin] Med 07/23/19 09:00 Active 125 mcg PO DAILY Furosemide [Lasix] Med 07/22/19 15:32 Once 40 mg IVPUSH NOW ONE Insulin Aspart [NovoLOG] Med 07/22/19 17:00 Active See Protocol SUBCUT TIDAC Insulin Detemir [Levemir] Med 07/22/19 21:00 Active 16 unit SUBCUT BEDTIME Metoprolol Succinate [Toprol XL] Med 07/23/19 09:00 Active 100 mg PO DAILY Nitroglycerin [Nitrostat] Med 07/22/19 11:42 Active 0.4 mg SL Q5M PRN Sodium Chloride 0.9% [Normal Saline] 1,000 ml Med 07/22/19 11:15 Active IV STAT Sodium Chloride 0.9% [Saline Flush] Med 07/22/19 11:05 Active 10 ml FLUSH ASDIRECTED PRN Sodium Chloride 0.9% [Saline Flush] Med 07/22/19 11:05 Active 2.5 ml FLUSH ASDIRECTED PRN Sodium Chloride 0.9% [Saline Flush] Med 07/22/19 11:05 Active 2.5 ml FLUSH ASDIRECTED PRN Saline Lock Insert [OM.PC] Stat Oth 07/22/19 11:05 Ordered Medication Orders Amiodarone HCl (Cordarone) 200 mg PO DAILY CHEKO Apixaban (Eliquis) 5 mg PO BID CHEKO Digoxin (Lanoxin) 125 mcg PO DAILY CHEKO Furosemide (Lasix) 40 mg IVPUSH NOW ONE Stop: 07/22/19 15:33 Sodium Chloride (Normal Saline) 1,000 mls @ 150 mls/hr IV STAT ONE Stop: 07/22/19 17:54 Last Admin: 07/22/19 11:28 Dose: 150 mls/hr Insulin Aspart (Novolog) 0 unit SUBCUT TIDAC CHEKO; Protocol Insulin Detemir (Levemir) 16 unit SUBCUT BEDTIME CHEKO Metoprolol Succinate (Toprol Xl) 100 mg PO DAILY CHEKO Nitroglycerin (Nitrostat) 0.4 mg SL Q5M PRN PRN Reason: Chest Pain Last Admin: 07/22/19 11:52 Dose: 0.4 mg Admin: 07/22/19 11:44 Dose: 0.4 mg Sodium Chloride (Saline Flush) 2.5 ml FLUSH ASDIRECTED PRN PRN Reason: Keep Vein Open Sodium Chloride (Saline Flush) 10 ml FLUSH ASDIRECTED PRN PRN Reason: Keep Vein Open Sodium Chloride (Saline Flush) 2.5 ml FLUSH ASDIRECTED PRN PRN Reason: Keep Vein Open Assessment/Plan Comment:: 59 yo male s/p cardioversion yesterday who presents with shortness of breath and chest pain. We will monitor overnight on telemetry and trend cardiac enzymes. We will give Lasix, check BNP and echocardiogram.
[2019-07-22] MEDS ORDERED: Iopamidol 755 MG/ML 500 ML Multipack Bottle IVPUSH STA (15:58)
[2019-07-22] MEDS: Insulin Aspart 100 Units/ML 3 ML Pen SUBCUT SCH (17:11)
[2019-07-22] MEDS: Acetaminophen 325 MG Tab PO PRN (18:08)
[2019-07-22] MEDS: traZODone 50 MG Tab PO SCH (21:07)
[2019-07-22] MEDS: Apixaban 5 MG Tab PO SCH (21:07)
[2019-07-22] MEDS: Insulin Detemir 100 Units/ML 3 ML Pen SUBCUT SCH (21:08)
[2019-07-23] MEDS: Insulin Aspart 100 Units/ML 3 ML Pen SUBCUT SCH ×3 (06:30→16:20)
[2019-07-23] MEDS ORDERED: Metoprolol Succinate 100 MG Tab.ER PO SCH (09:00)
[2019-07-23] MEDS ORDERED: PREGABALIN 150 MG PO SCH (09:15)
[2019-07-23] MEDS ORDERED: Furosemide 40 MG/4 ML VIAL IVPUSH ONE ×2 (09:15→15:08)
[2019-07-23] MEDS: Amiodarone 200 MG Tab PO SCH (09:52)
[2019-07-23] MEDS: Digoxin 125 MCG Tab PO SCH (09:52)
[2019-07-23] MEDS: Apixaban 5 MG Tab PO SCH ×2 (09:52→20:15)
[2019-07-23] MEDS: Pregabalin 75 MG Cap PO SCH ×4 (10:27→23:46)
[2019-07-23] MEDS ORDERED: Diltiazem 25 MG/5 ML SDV IVPUSH ONE (10:34)
--- NOTE | 2019-07-23 10:42 | PCM.PN ---
- General Info Date of Service: 07/23/19 - Review of Systems Systems Review Comment:: shwetha reports no chest pain, breathing has improved. - Patient Data Vitals - Most Recent: Last Vital Signs Temp 35.9 C 07/23/19 07:44 Pulse 93 07/23/19 09:52 Resp 18 07/23/19 07:44 BP 140/113 H 07/23/19 09:52 Pulse Ox 95 07/23/19 07:44 Weight - Most Recent: 101.333 kg I&O - Last 24 Hours: Intake & Output 07/22/19 07/23/19 07/23/19 22:59 06:59 14:59 Intake Total 593 1530 Output Total 0 Balance 593 1530 Lab Results Last 24 Hours: Laboratory Results - last 24 hr 07/22/19 07/22/19 07/22/19 Range/Units 11:28 11:28 11:28 WBC 12.87 H (4.0-11.0) K/uL RBC 4.45 L (4.50-5.90) M/uL Hgb 14.0 (13.0-17.0) g/dL Hct 42.8 (38.0-50.0) % MCV 96.2 (80.0-98.0) fL MCH 31.5 (27.0-32.0) pg MCHC 32.7 (31.0-37.0) g/dL RDW Std Deviation 55.7 (28.0-62.0) fl RDW Coeff of Dennis 16 H (11.0-15.0) % Plt Count 423 H (150-400) K/uL MPV 10.30 (7.40-12.00) fL Neut % (Auto) 61.0 (48.0-80.0) % Lymph % (Auto) 27.8 (16.0-40.0) % [place] % (Auto) 9.9 (0.0-15.0) % Eos % (Auto) 1.0 (0.0-7.0) % Baso % (Auto) 0.3 (0.0-1.5) % Neut # (Auto) 7.8 H (1.4-5.7) K/uL Lymph # (Auto) 3.6 H (0.6-2.4) K/uL [place] # (Auto) 1.3 H (0.0-0.8) K/uL Eos # (Auto) 0.1 (0.0-0.7) K/uL Baso # (Auto) 0.0 (0.0-0.1) K/uL Nucleated RBC % 0.0 /100WBC Nucleated RBCs # 0 K/uL INR 1.13 Sodium 139 (136-148) mmol/L Potassium 4.0 (3.5-5.1) mmol/L Chloride 103 (98-107) mmol/L Carbon Dioxide 24.3 (21.0-32.0) mmol/L BUN 12 (7.0-18.0) mg/dL Creatinine 0.8 (0.8-1.3) mg/dL Est Cr Clr Drug Dosing 109.59 mL/min Estimated GFR (MDRD) > 60.0 ml/min Glucose 156 H (74-106) mg/dL POC Glucose (60-110) mg/dL Calcium 8.1 L (8.5-10.1) mg/dL Total Bilirubin 0.7 (0.2-1.0) mg/dL AST 25 (15-37) IU/L ALT 36 (14-63) IU/L Alkaline Phosphatase 125 H (46-116) U/L Troponin I < 0.050 (0.000-0.056) ng/mL B-Natriuretic Peptide (<100) PG/ML Total Protein 6.6 (6.4-8.2) g/dL Albumin 2.0 L (3.4-5.0) g/dL Globulin 4.6 H (2.6-4.0) g/dL Albumin/Globulin Ratio 0.4 L (0.9-1.6) Urine Color Urine Appearance Urine pH (5.0-8.0) Ur Specific [place] (1.001-1.035) Urine Protein (NEGATIVE) mg/dL Urine Glucose (UA) (NEGATIVE) mg/dL Urine Ketones (NEGATIVE) mg/dL Urine Occult Blood (NEGATIVE) Urine Nitrite (NEGATIVE) Urine Bilirubin (NEGATIVE) Urine Urobilinogen (<2.0) EU/dL Ur Leukocyte Esterase (NEGATIVE) Urine RBC (0-2/HPF) Urine WBC (0-5/HPF) Ur Epithelial Cells (NONE-FEW) Amorphous Sediment (NEGATIVE) Urine Bacteria (NEGATIVE) Urine Mucus (NONE-MOD) 07/22/19 07/22/19 07/22/19 Range/Units 11:28 16:59 17:00 WBC (4.0-11.0) K/uL RBC (4.50-5.90) M/uL Hgb (13.0-17.0) g/dL Hct (38.0-50.0) % MCV (80.0-98.0) fL MCH (27.0-32.0) pg MCHC (31.0-37.0) g/dL RDW Std Deviation (28.0-62.0) fl RDW Coeff of Dennis (11.0-15.0) % Plt Count (150-400) K/uL MPV (7.40-12.00) fL Neut % (Auto) (48.0-80.0) % Lymph % (Auto) (16.0-40.0) % [place] % (Auto) (0.0-15.0) % Eos % (Auto) (0.0-7.0) % Baso % (Auto) (0.0-1.5) % Neut # (Auto) (1.4-5.7) K/uL Lymph # (Auto) (0.6-2.4) K/uL [place] # (Auto) (0.0-0.8) K/uL Eos # (Auto) (0.0-0.7) K/uL Baso # (Auto) (0.0-0.1) K/uL Nucleated RBC % /100WBC Nucleated RBCs # K/uL INR Sodium (136-148) mmol/L Potassium (3.5-5.1) mmol/L Chloride (98-107) mmol/L Carbon Dioxide (21.0-32.0) mmol/L BUN (7.0-18.0) mg/dL Creatinine (0.8-1.3) mg/dL Est Cr Clr Drug Dosing mL/min Estimated GFR (MDRD) ml/min Glucose (74-106) mg/dL POC Glucose 132 H (60-110) mg/dL Calcium (8.5-10.1) mg/dL Total Bilirubin (0.2-1.0) mg/dL AST (15-37) IU/L ALT (14-63) IU/L Alkaline Phosphatase (46-116) U/L Troponin I (0.000-0.056) ng/mL B-Natriuretic Peptide 989 H (<100) PG/ML Total Protein (6.4-8.2) g/dL Albumin (3.4-5.0) g/dL Globulin (2.6-4.0) g/dL Albumin/Globulin Ratio (0.9-1.6) Urine Color YELLOW Urine Appearance CLEAR Urine pH 5.5 (5.0-8.0) Ur Specific [place] >= 1.030 (1.001-1.035) Urine Protein 100 H (NEGATIVE) mg/dL Urine Glucose (UA) NEGATIVE (NEGATIVE) mg/dL Urine Ketones NEGATIVE (NEGATIVE) mg/dL Urine Occult Blood TRACE-INTACT H (NEGATIVE) Urine Nitrite NEGATIVE (NEGATIVE) Urine Bilirubin NEGATIVE (NEGATIVE) Urine Urobilinogen 1.0 (<2.0) EU/dL Ur Leukocyte Esterase NEGATIVE (NEGATIVE) Urine RBC 0-1 (0-2/HPF) Urine WBC 0-1 (0-5/HPF) Ur Epithelial Cells NOT SEEN (NONE-FEW) Amorphous Sediment FEW (NEGATIVE) Urine Bacteria RARE (NEGATIVE) Urine Mucus MODERATE (NONE-MOD) 07/22/19 07/22/19 07/23/19 Range/Units 18:17 21:03 00:52 WBC (4.0-11.0) K/uL RBC (4.50-5.90) M/uL Hgb (13.0-17.0) g/dL Hct (38.0-50.0) % MCV (80.0-98.0) fL MCH (27.0-32.0) pg MCHC (31.0-37.0) g/dL RDW Std Deviation (28.0-62.0) fl RDW Coeff of Dennis (11.0-15.0) % Plt Count (150-400) K/uL MPV (7.40-12.00) fL Neut % (Auto) (48.0-80.0) % Lymph % (Auto) (16.0-40.0) % [place] % (Auto) (0.0-15.0) % Eos % (Auto) (0.0-7.0) % Baso % (Auto) (0.0-1.5) % Neut # (Auto) (1.4-5.7) K/uL Lymph # (Auto) (0.6-2.4) K/uL [place] # (Auto) (0.0-0.8) K/uL Eos # (Auto) (0.0-0.7) K/uL Baso # (Auto) (0.0-0.1) K/uL Nucleated RBC % /100WBC Nucleated RBCs # K/uL INR Sodium (136-148) mmol/L Potassium (3.5-5.1) mmol/L Chloride (98-107) mmol/L Carbon Dioxide (21.0-32.0) mmol/L BUN (7.0-18.0) mg/dL Creatinine (0.8-1.3) mg/dL Est Cr Clr Drug Dosing mL/min Estimated GFR (MDRD) ml/min Glucose (74-106) mg/dL POC Glucose 133 H (60-110) mg/dL Calcium (8.5-10.1) mg/dL Total Bilirubin (0.2-1.0) mg/dL AST (15-37) IU/L ALT (14-63) IU/L Alkaline Phosphatase (46-116) U/L Troponin I < 0.050 < 0.050 (0.000-0.056) ng/mL B-Natriuretic Peptide (<100) PG/ML Total Protein (6.4-8.2) g/dL Albumin (3.4-5.0) g/dL Globulin (2.6-4.0) g/dL Albumin/Globulin Ratio (0.9-1.6) Urine Color Urine Appearance Urine pH (5.0-8.0) Ur Specific [place] (1.001-1.035) Urine Protein (NEGATIVE) mg/dL Urine Glucose (UA) (NEGATIVE) mg/dL Urine Ketones (NEGATIVE) mg/dL Urine Occult Blood (NEGATIVE) Urine Nitrite (NEGATIVE) Urine Bilirubin (NEGATIVE) Urine Urobilinogen (<2.0) EU/dL Ur Leukocyte Esterase (NEGATIVE) Urine RBC (0-2/HPF) Urine WBC (0-5/HPF) Ur Epithelial Cells (NONE-FEW) Amorphous Sediment (NEGATIVE) Urine Bacteria (NEGATIVE) Urine Mucus (NONE-MOD) 07/23/19 Range/Units 06:19 WBC (4.0-11.0) K/uL RBC (4.50-5.90) M/uL Hgb (13.0-17.0) g/dL Hct (38.0-50.0) % MCV (80.0-98.0) fL MCH (27.0-32.0) pg MCHC (31.0-37.0) g/dL RDW Std Deviation (28.0-62.0) fl RDW Coeff of [place] (11.0-15.0) % Plt Count (150-400) K/uL MPV (7.40-12.00) fL Neut % (Auto) (48.0-80.0) % Lymph % (Auto) (16.0-40.0) % [place] % (Auto) (0.0-15.0) % Eos % (Auto) (0.0-7.0) % Baso % (Auto) (0.0-1.5) % Neut # (Auto) (1.4-5.7) K/uL Lymph # (Auto) (0.6-2.4) K/uL [place] # (Auto) (0.0-0.8) K/uL Eos # (Auto) (0.0-0.7) K/uL Baso # (Auto) (0.0-0.1) K/uL Nucleated RBC % /100WBC Nucleated RBCs # K/uL INR Sodium (136-148) mmol/L Potassium (3.5-5.1) mmol/L Chloride (98-107) mmol/L Carbon Dioxide (21.0-32.0) mmol/L BUN (7.0-18.0) mg/dL Creatinine (0.8-1.3) mg/dL Est Cr Clr Drug Dosing mL/min Estimated GFR (MDRD) ml/min Glucose (74-106) mg/dL POC Glucose 120 H (60-110) mg/dL Calcium (8.5-10.1) mg/dL Total Bilirubin (0.2-1.0) mg/dL AST (15-37) IU/L ALT (14-63) IU/L Alkaline Phosphatase (46-116) U/L Troponin I (0.000-0.056) ng/mL B-Natriuretic Peptide (<100) PG/ML Total Protein (6.4-8.2) g/dL Albumin (3.4-5.0) g/dL Globulin (2.6-4.0) g/dL Albumin/Globulin Ratio (0.9-1.6) Urine Color Urine Appearance Urine pH (5.0-8.0) Ur Specific [place] (1.001-1.035) Urine Protein (NEGATIVE) mg/dL Urine Glucose (UA) (NEGATIVE) mg/dL Urine Ketones (NEGATIVE) mg/dL Urine Occult Blood (NEGATIVE) Urine Nitrite (NEGATIVE) Urine Bilirubin (NEGATIVE) Urine Urobilinogen (<2.0) EU/dL Ur Leukocyte Esterase (NEGATIVE) Urine RBC (0-2/HPF) Urine WBC (0-5/HPF) Ur Epithelial Cells (NONE-FEW) Amorphous Sediment (NEGATIVE) Urine Bacteria (NEGATIVE) Urine Mucus (NONE-MOD) Med Orders - Current: Current Medications Acetaminophen (Tylenol) 650 mg PO Q6H PRN PRN Reason: Pain (mild 1-3) Last Admin: 07/22/19 18:08 Dose: 650 mg Amiodarone HCl (Cordarone) 200 mg PO DAILY [facility] Last Admin: 07/23/19 09:52 Dose: 200 mg Apixaban (Eliquis) 5 mg PO BID [facility] Last Admin: 07/23/19 09:52 Dose: 5 mg Digoxin (Lanoxin) 125 mcg PO DAILY [facility] Last Admin: 07/23/19 09:52 Dose: 125 mcg Diltiazem HCl (Cardizem Cd) 120 mg PO DAILY [facility] Diltiazem HCl (Diltiazem) 10 mg IVPUSH ONETIME ONE Stop: 07/23/19 10:35 Duloxetine HCl (Cymbalta) 60 mg PO DAILY [facility] Insulin Aspart (Novolog) 0 unit SUBCUT TIDAC [facility]; Protocol Last Admin: 07/23/19 06:30 Dose: Not Given Insulin Detemir (Levemir) 16 unit SUBCUT BEDTIME [facility] Last Admin: 07/22/19 21:08 Dose: 16 units Metoprolol Succinate (Toprol Xl) 100 mg PO DAILY [facility] Last Admin: 07/23/19 09:52 Dose: 100 mg Nitroglycerin (Nitrostat) 0.4 mg SL Q5M PRN PRN Reason: Chest Pain Last Admin: 07/22/19 11:52 Dose: 0.4 mg Pantoprazole Sodium (Protonix) 40 mg PO DAILY [facility] Pregabalin (Lyrica) 150 mg PO QID [facility] Last Admin: 07/23/19 10:27 Dose: 150 mg Quetiapine Fumarate (Seroquel) 50 mg PO BEDTIME [facility] Sodium Chloride (Saline Flush) 2.5 ml FLUSH ASDIRECTED PRN PRN Reason: Keep Vein Open Sodium Chloride (Saline Flush) 10 ml FLUSH ASDIRECTED PRN PRN Reason: Keep Vein Open Sodium Chloride (Saline Flush) 2.5 ml FLUSH ASDIRECTED PRN PRN Reason: Keep Vein Open Trazodone HCl (Trazodone) 100 mg PO BEDTIME [facility] Last Admin: 07/22/19 21:07 Dose: 100 mg Trazodone HCl (Trazodone Hcl) 100 mg PO BEDTIME [facility] Discontinued Medications Albuterol/Ipratropium (Duoneb 3.0-0.5 Mg/3 Ml) 3 ml NEB ONETIME ONE Stop: 07/22/19 11:59 Last Admin: 07/22/19 12:12 Dose: 3 ml Aspirin (Aspirin) 324 mg PO ONETIME STA Stop: 07/22/19 11:06 Last Admin: 07/22/19 11:28 Dose: Not Given Furosemide (Lasix) 40 mg IVPUSH NOW ONE Stop: 07/22/19 15:33 Last Admin: 07/22/19 16:29 Dose: 40 mg Furosemide (Lasix) 40 mg IVPUSH NOW ONE Stop: 07/23/19 09:16 Last Admin: 07/23/19 09:53 Dose: 40 mg Pantoprazole Sodium 40 mg/ (Sodium Chloride) 10 mls @ 300 mls/hr IV NOW ONE Stop: 07/22/19 11:13 Last Admin: 07/22/19 11:38 Dose: 300 mls/hr Sodium Chloride (Normal Saline) 1,000 mls @ 150 mls/hr IV STAT ONE Stop: 07/22/19 17:54 Last Admin: 07/22/19 11:28 Dose: 150 mls/hr Influenza Virus Vaccine (Pharmacy To Dose - Influenza Vaccine) 1 each IM ONETIME ONE Stop: 07/22/19 14:16 Last Admin: 07/22/19 15:43 Dose: Not Given Influenza Virus Vaccine (Fluzone Quad [id number] Syringe) 60 mcg IM .ONCE ONE Stop: 07/22/19 14:31 Last Admin: 07/22/19 16:30 Dose: 60 mcg Iopamidol (Isovue Multipack-370 (76%)) 50 ml IVPUSH ONETIME STA Stop: 07/22/19 15:59 Last Admin: 07/22/19 15:59 Dose: 50 ml Nitroglycerin (Nitrostat) 0.4 mg SL ONETIME STA Stop: 07/22/19 11:06 Last Admin: 07/22/19 11:29 Dose: 0.4 mg Pregabalin [Lyrica] (150 Mg) 1 each PO QID [facility] Last Admin: 07/23/19 09:54 Dose: Not Given - Exam General: Alert, Oriented Neck: Supple Lungs: Clear to Auscultation, Normal Respiratory Effort Cardiovascular: Irregular Rhythm, Tachycardia GI/Abdominal Exam: Soft, Non-Tender Extremities: Non-Tender, No Pedal Edema Skin: Warm, Dry, Intact Neurological: No New Focal Deficit - Problem List Review Problem List Initiated/Reviewed/Updated: Yes - My Orders Last 24 Hours: My Active Orders 07/22/19 14:17 Influenza Vaccine Charge [RC] .DISCHARGE 07/22/19 17:00 Insulin Aspart [NovoLOG] See Protocol SUBCUT TIDAC 07/22/19 17:34 Acetaminophen [Tylenol] 650 mg PO Q6H PRN 07/22/19 21:00 Apixaban [Eliquis] 5 mg PO BID Insulin Detemir [Levemir] 16 unit SUBCUT BEDTIME traZODone 100 mg PO BEDTIME 07/22/19 [employer] [place] [employer] Diet [DIET] 07/23/19 05:11 BASIC METABOLIC PANEL,BMP [CHEM] AM CBC WITH AUTO DIFF [HEME] AM MAGNESIUM [CHEM] AM 07/23/19 06:00 Daily Weight [Height and Weight] [RC] DAILY 07/23/19 09:00 Amiodarone [Cordarone] 200 mg PO DAILY Digoxin [Lanoxin] 125 mcg PO DAILY Metoprolol Succinate [Toprol XL] 100 mg PO DAILY 07/23/19 10:34 Diltiazem 10 mg IVPUSH ONETIME ONE 07/23/19 10:45 DULoxetine [Cymbalta] 60 mg PO DAILY Diltiazem [Cardizem CD] 120 mg PO DAILY Pantoprazole [ProTONIX] 40 mg PO DAILY 07/23/19 15:31 Echo Comp wo Cont [US] Routine 07/23/19 21:00 QUEtiapine [SEROquel] 50 mg PO BEDTIME traZODone HCl [Trazodone HCl] 100 mg PO BEDTIME 07/24/19 05:11 BASIC METABOLIC PANEL,BMP [CHEM] AM CBC WITH AUTO DIFF [HEME] AM MAGNESIUM [CHEM] AM 07/25/19 05:11 BASIC METABOLIC PANEL,BMP [CHEM] AM CBC WITH AUTO DIFF [HEME] AM MAGNESIUM [CHEM] AM 07/26/19 05:11 MAGNESIUM [CHEM] AM - Plan Plan:: 59 yo male s/p cardioversion a day prior to admission who presents with shortness of breath and chest pain. a.fib: converted to fibrillation this morning, heart rate in the 120s to 140s, will continue amiodarone, digoxin, diltiazem and metoprolol Chest pain: ruled out for ACS with serial cardiac enzymes We will monitor overnight on telemetry and trend cardiac enzymes. Pulmonary edema: another dose of lasix today, Echocardiogram pending.
[2019-07-23] MEDS ORDERED: Diltiazem 120 MG Cap.CD PO SCH (10:45)
[2019-07-23] MEDS: DULoxetine 60 MG Cap PO SCH (10:57)
[2019-07-23] MEDS: Pantoprazole 40 MG Tab.CR PO SCH (10:57)
[2019-07-23 12:15] LABS: BLOOD UREA NITROGEN,BUN 20 mg/dL (7.0-18.0); CARBON DIOXIDE,CO2 30.5 mmol/L (21.0-32.0); CHLORIDE,CL 101 mmol/L (98-107); GLUCOSE RANDOM 126 mg/dL (74-106); POTASSIUM,K 4.8 mmol/L (3.5-5.1); SODIUM,NA 142 mmol/L (136-148)
[2019-07-23] MEDS: Acetaminophen 325 MG Tab PO PRN (13:31)
--- NOTE | 2019-07-23 19:39 | PCM.SN ---
- Free Text/Narrative Note: #[id number]
[2019-07-23] MEDS: traZODone 50 MG Tab PO SCH (20:15)
[2019-07-23] MEDS: Metoprolol Tartrate 50 MG Tab PO SCH (20:23)
[2019-07-23] MEDS: Insulin Detemir 100 Units/ML 3 ML Pen SUBCUT SCH (20:26)
[2019-07-23] MEDS ORDERED: traZODone 50 MG Tab PO SCH (21:00)
[2019-07-23] MEDS ORDERED: Diltiazem 25 MG/5 ML SDV IVPUSH PRN (23:08)
--- NOTE | 2019-07-24 02:06 | CONS ---
DATE OF CONSULTATION: DATE OF : 1960 PRIMARY CARE PHYSICIAN: MALIK SNEED MD REASON FOR CONSULTATION: Atrial flutter, RVR. HISTORY OF PRESENT ILLNESS: This is a 59-year-old male with history of smoking, history of stroke, diabetes, hypertension, reportedly history of MO in 1999, history of substance abuse including meth, marijuana, kratom. I have seen him for atrial flutter, RVR, and we did the ACOSTA and cardioversion on July 21 when he was converted to sinus rhythm. On the same night after he had cardioversion, he started having shortness of breath as well as some chest pain at that time, but more so of the shortness of breath. He felt that he could not lay down flat. No leg swelling and then he came to the hospital. He also noted some heart fluttering as well. EKG initially it shows sinus rhythm and troponin was negative, and he also had a CT angiogram to rule out PE, which is negative for PE; however, it showed ground - glass appearance with pleural effusion bilaterally, possibly congestive heart failure, and then he got admitted into the hospital. PAST MEDICAL HISTORY: Including history of reportedly CVA, reportedly MO, hypertension, diabetes, history of smoking, substance abuse, persistent atrial flutter status post ACOSTA and cardioversion. SOCIAL HISTORY: Current smoker. Substance abuse. No alcohol abuse. FAMILY HISTORY: Noncontributory. REVIEW OF SYSTEMS: Chest pain positive, shortness of breath positive, heart fluttering positive, otherwise been negative in HPI. PHYSICAL EXAMINATION: VITAL SIGNS: The initial heart rate was 60 to 80, but currently he is in atrial flutter, heart rate of 110 to 120, blood pressure is around 120 to 140 over 90 to 100, temperature 96.6, O2 saturation is 95 on room air. HEENT: JVD positive. HEART: Heart rate is tachycardia. Regular rhythm. No murmurs. LUNGS: Crackle bilaterally. ABDOMEN: Soft, nontender. Bowel sounds are present. No hepatosplenomegaly. SKIN: With surgical scar. EXTREMITIES: Legs, no edema. INVESTIGATIONS: CBC showed WBC 13, hematocrit of 47, hemoglobin of 15. Sodium 142, potassium 4.8, chloride 101, bicarb 30, BUN 20, creatinine 1.0, magnesium 1.7. Troponin was negative x3 already. BNP was positive, 900. EKG: Initial EKG, he was in sinus rhythm, heart rate of 96, FL interval 171, QTc interval 452. Atrial abnormalities, but the current EKG at 3 p.m. on ECG 07/22/2019 possible flutter typical. CURRENT MEDICATIONS: Include amiodarone 200 mg once a day. He was started with amiodarone since 06/27/2019, lasix 40 IV BID was ordered. ASSESSMENT AND PLAN: This is a 59-year-old male with history of persistent atrial flutter status post ACOSTA and cardioversion. He reverted back to atrial flutter, RVR with decompensated heart failure, possibly LV systolic dysfunction. Recommended to start diuresing with a IV Lasix 40 IV twice a day, strictly I and O, standing scale, daily weight. Recommend to stop IV fluid and at least negative balance 500 to 1000 mL a day and Eliquis will continued without interruption after cardioversion for 4 weeks. Regarding chest pain, it does not sound very typical; I do feel getting his rate and rhythm controlled is more urgent, I will probably try to control his heart rate first and then recommend to do the ischemic workup as an outpatient. We have tried a ACOSTA/cardioversion, but however, he reverted back to atrial flutter. It seemed to me to be typical flutter. Finally he probably needs ablation to control the arrhythmia. He will be recommended to see EPS as an outpatient. I will arrange for that. For now, we will treat him with diuresis, low-sodium diet for heart failure for now, and I will adjust the metoprolol to short-acting 50 mg q.6 hours as well as continue the amiodarone and digoxin for now. ISAÍAS / HOSSEIN /[id number] ALDO
[2019-07-24] MEDS: Metoprolol Tartrate 50 MG Tab PO SCH ×2 (02:45→08:06)
[2019-07-24] MEDS: Pregabalin 75 MG Cap PO SCH (06:46)
[2019-07-24] MEDS: Insulin Aspart 100 Units/ML 3 ML Pen SUBCUT SCH (06:51)
[2019-07-24 06:54] LABS: BLOOD UREA NITROGEN,BUN 30 mg/dL (7.0-18.0); CARBON DIOXIDE,CO2 30.1 mmol/L (21.0-32.0); CHLORIDE,CL 100 mmol/L (98-107); GLUCOSE RANDOM 217 mg/dL (74-106); POTASSIUM,K 3.5 mmol/L (3.5-5.1); SODIUM,NA 139 mmol/L (136-148)
[2019-07-24] MEDS: Digoxin 125 MCG Tab PO SCH (08:06)
[2019-07-24] MEDS: Pantoprazole 40 MG Tab.CR PO SCH (08:07)
[2019-07-24] MEDS: Apixaban 5 MG Tab PO SCH (08:07)
[2019-07-24] MEDS: Amiodarone 200 MG Tab PO SCH (08:07)
[2019-07-24] MEDS: DULoxetine 60 MG Cap PO SCH (08:07)
[2019-07-24] MEDS ORDERED: Magnesium Sulfate/Water 2 GM in Premix Bag 1 BAG IV ONE (08:34)
[2019-07-24] MEDS ORDERED: Potassium Chloride 20 MEQ Tab.ER PO ONE (08:35)
--- NOTE | 2019-07-24 09:47 | PCM.DCSUM1 ---
Discharge Summary - Discharge Data Discharge Date: 07/24/19 Discharge Disposition: DC/Tfer to Acute Hospital 02 Condition: Stable - Referral to Home Health Primary Care Physician: Zuleika Thompson MD - Patient Summary/Data Hospital Course: 59 yo male who presented with chest pressure and shortness of breath. He has a pmh of atrial flutter, CVA, WI and DM who was cardioverted by Dr. Melendez after [place] a day before admission in [place]. On admission patient was noted to be in normal sinus rhythm. CT angio in the ER reported no PE but showed some ground glass opacities suggesting possible pulmonary vascular congestion. PAtient ruled out for acute coronary syndrome with serial negative cardiac enzymes. He was given lasix for pulmonary vascular congestion. Patient's home medications of amiodarone, diltiazem, digoxin and Eliquis were resumed. During his stay he did convert to atrial flutter with heart rate in the 120s-140s bpm. His blood pressure was in the 90s/40s. Dr. Melendez was consulted. He recommended cardioversion but was unavailable to perform it today so he recommended transfer to [place]. I called [facility] and Dr. Melissa has accepted the patient. - Discharge Plan Home Medications: Home Meds Apixaban [Eliquis] 5 mg PO BID 04/20/19 [History] DULoxetine HCl [Duloxetine HCl] 1 tab PO DAILY 04/20/19 [History] Insulin Detemir [Levemir Flextouch] 16 units SQ BEDTIME 04/20/19 [History] Pantoprazole Sodium 40 mg PO DAILY 04/20/19 [History] Pregabalin [Lyrica] 150 mg PO QID 04/20/19 [History] metFORMIN [Glucophage] 2 tab PO BID 04/20/19 [History] traZODone HCl [Trazodone HCl] 100 mg PO BEDTIME 04/20/19 [History] Amiodarone [Cordarone] 200 mg PO DAILY #30 tablet 04/24/19 [Rx] Digoxin 125 mcg PO DAILY #30 tablet 04/24/19 [Rx] Diltiazem [Cardizem CD] 120 mg PO DAILY 07/22/19 [History] Metoprolol Succinate 100 mg PO DAILY 07/22/19 [History] QUEtiapine [SEROquel] 50 mg PO BEDTIME 07/22/19 [History] Patient Handouts: Nonspecific Chest Pain, [id number] Referrals: [facility] [Outside] Zuleika Thompson MD [Primary Care Provider] - 08/12/19 9:00 am Siddharth Randolph MD [Physician] - 08/07/19 9:00 am - Discharge Summary/Plan Comment DC Time >30 min.: No - Patient Data Vitals - Most Recent: Last Vital Signs Temp 37.0 C 07/24/19 07:20 Pulse 65 07/24/19 08:06 Resp 16 07/24/19 07:20 BP 112/80 07/24/19 08:06 Pulse Ox 90 L 07/24/19 07:20 Weight - Most Recent: 98.52 kg I&O - Last 24 hours: Intake & Output 07/23/19 07/24/19 07/24/19 22:59 06:59 14:59 Intake Total 1700 1620 50 Output Total 1600 2330 Balance 100 -710 50 Lab Results - Last 24 hrs: Laboratory Results - last 24 hr 07/23/19 07/23/19 07/23/19 Range/Units 11:18 11:18 12:16 WBC 13.16 H (4.0-11.0) K/uL RBC 4.93 (4.50-5.90) M/uL Hgb 15.5 (13.0-17.0) g/dL Hct 47.6 (38.0-50.0) % MCV 96.6 (80.0-98.0) fL MCH 31.4 (27.0-32.0) pg MCHC 32.6 (31.0-37.0) g/dL RDW Std Deviation 55.0 (28.0-62.0) fl RDW Coeff of Dennis 16 H (11.0-15.0) % Plt Count 336 (150-400) K/uL MPV 10.20 (7.40-12.00) fL Neut % (Auto) 67.5 (48.0-80.0) % Lymph % (Auto) 21.0 (16.0-40.0) % Gage % (Auto) 9.7 (0.0-15.0) % Eos % (Auto) 1.6 (0.0-7.0) % Baso % (Auto) 0.2 (0.0-1.5) % Neut # (Auto) 8.9 H (1.4-5.7) K/uL Lymph # (Auto) 2.8 H (0.6-2.4) K/uL Gage # (Auto) 1.3 H (0.0-0.8) K/uL Eos # (Auto) 0.2 (0.0-0.7) K/uL Baso # (Auto) 0.0 (0.0-0.1) K/uL Nucleated RBC % 0.0 /100WBC Nucleated RBCs # 0 K/uL Sodium 142 (136-148) mmol/L Potassium 4.8 (3.5-5.1) mmol/L Chloride 101 (98-107) mmol/L Carbon Dioxide 30.5 (21.0-32.0) mmol/L BUN 20 H (7.0-18.0) mg/dL Creatinine 1.0 (0.8-1.3) mg/dL Est Cr Clr Drug Dosing 87.67 mL/min Estimated GFR (MDRD) > 60.0 ml/min Glucose 126 H (74-106) mg/dL POC Glucose 163 H (60-110) mg/dL Calcium 9.7 (8.5-10.1) mg/dL Magnesium 1.7 L (1.8-2.4) mg/dL Digoxin (0.9-2.0) ng/mL 07/23/19 07/23/19 07/24/19 Range/Units 16:03 20:26 05:55 WBC (4.0-11.0) K/uL RBC (4.50-5.90) M/uL Hgb (13.0-17.0) g/dL Hct (38.0-50.0) % MCV (80.0-98.0) fL MCH (27.0-32.0) pg MCHC (31.0-37.0) g/dL RDW Std Deviation (28.0-62.0) fl RDW Coeff of Dennis (11.0-15.0) % Plt Count (150-400) K/uL MPV (7.40-12.00) fL Neut % (Auto) (48.0-80.0) % Lymph % (Auto) (16.0-40.0) % Gage % (Auto) (0.0-15.0) % Eos % (Auto) (0.0-7.0) % Baso % (Auto) (0.0-1.5) % Neut # (Auto) (1.4-5.7) K/uL Lymph # (Auto) (0.6-2.4) K/uL Gage # (Auto) (0.0-0.8) K/uL Eos # (Auto) (0.0-0.7) K/uL Baso # (Auto) (0.0-0.1) K/uL Nucleated RBC % /100WBC Nucleated RBCs # K/uL Sodium (136-148) mmol/L Potassium (3.5-5.1) mmol/L Chloride (98-107) mmol/L Carbon Dioxide (21.0-32.0) mmol/L BUN (7.0-18.0) mg/dL Creatinine (0.8-1.3) mg/dL Est Cr Clr Drug Dosing mL/min Estimated GFR (MDRD) ml/min Glucose (74-106) mg/dL POC Glucose 102 166 H (60-110) mg/dL Calcium (8.5-10.1) mg/dL Magnesium (1.8-2.4) mg/dL Digoxin 0.2 L (0.9-2.0) ng/mL 07/24/19 07/24/19 07/24/19 Range/Units 05:55 05:55 06:49 WBC 10.98 (4.0-11.0) K/uL RBC 4.63 (4.50-5.90) M/uL Hgb 14.3 (13.0-17.0) g/dL Hct 44.5 (38.0-50.0) % MCV 96.1 (80.0-98.0) fL MCH 30.9 (27.0-32.0) pg MCHC 32.1 (31.0-37.0) g/dL RDW Std Deviation 54.1 (28.0-62.0) fl RDW Coeff of Dennis 16 H (11.0-15.0) % Plt Count 309 (150-400) K/uL MPV 10.40 (7.40-12.00) fL Neut % (Auto) 54.1 (48.0-80.0) % Lymph % (Auto) 32.3 (16.0-40.0) % Gage % (Auto) 11.3 (0.0-15.0) % Eos % (Auto) 2.1 (0.0-7.0) % Baso % (Auto) 0.2 (0.0-1.5) % Neut # (Auto) 5.9 H (1.4-5.7) K/uL Lymph # (Auto) 3.6 H (0.6-2.4) K/uL Gage # (Auto) 1.2 H (0.0-0.8) K/uL Eos # (Auto) 0.2 (0.0-0.7) K/uL Baso # (Auto) 0.0 (0.0-0.1) K/uL Nucleated RBC % 0.0 /100WBC Nucleated RBCs # 0 K/uL Sodium 139 (136-148) mmol/L Potassium 3.5 (3.5-5.1) mmol/L Chloride 100 (98-107) mmol/L Carbon Dioxide 30.1 (21.0-32.0) mmol/L BUN 30 H (7.0-18.0) mg/dL Creatinine 1.1 (0.8-1.3) mg/dL Est Cr Clr Drug Dosing 79.70 mL/min Estimated GFR (MDRD) > 60.0 ml/min Glucose 217 H (74-106) mg/dL POC Glucose 138 H (60-110) mg/dL Calcium 9.4 (8.5-10.1) mg/dL Magnesium 1.7 L (1.8-2.4) mg/dL Digoxin (0.9-2.0) ng/mL Med Orders - Current: Current Medications Acetaminophen (Tylenol) 650 mg PO Q6H PRN PRN Reason: Pain (mild 1-3) Last Admin: 07/23/19 13:31 Dose: 650 mg Amiodarone HCl (Cordarone) 200 mg PO DAILY [facility] Last Admin: 07/24/19 08:07 Dose: 200 mg Apixaban (Eliquis) 5 mg PO BID [facility] Last Admin: 07/24/19 08:07 Dose: 5 mg Digoxin (Lanoxin) 125 mcg PO DAILY [facility] Last Admin: 07/24/19 08:06 Dose: 125 mcg Diltiazem HCl (Diltiazem) 10 mg IVPUSH Q3H PRN PRN Reason: Tachycardia Duloxetine HCl (Cymbalta) 60 mg PO DAILY [facility] Last Admin: 07/24/19 08:07 Dose: 60 mg Insulin Aspart (Novolog) 0 unit SUBCUT TIDAC [facility]; Protocol Last Admin: 07/24/19 06:51 Dose: Not Given Insulin Detemir (Levemir) 16 unit SUBCUT BEDTIME [facility] Last Admin: 07/23/19 20:26 Dose: 16 units Metoprolol Tartrate (Lopressor) 50 mg PO Q6H [facility] Last Admin: 07/24/19 08:06 Dose: 50 mg Nitroglycerin (Nitrostat) 0.4 mg SL Q5M PRN PRN Reason: Chest Pain Last Admin: 07/22/19 11:52 Dose: 0.4 mg Pantoprazole Sodium (Protonix) 40 mg PO DAILY [facility] Last Admin: 07/24/19 08:07 Dose: 40 mg Pregabalin (Lyrica) 150 mg PO QID [facility] Last Admin: 07/24/19 06:46 Dose: 150 mg Quetiapine Fumarate (Seroquel) 50 mg PO BEDTIME [facility] Last Admin: 07/23/19 20:15 Dose: 50 mg Sodium Chloride (Saline Flush) 2.5 ml FLUSH ASDIRECTED PRN PRN Reason: Keep Vein Open Sodium Chloride (Saline Flush) 10 ml FLUSH ASDIRECTED PRN PRN Reason: Keep Vein Open Sodium Chloride (Saline Flush) 2.5 ml FLUSH ASDIRECTED PRN PRN Reason: Keep Vein Open Trazodone HCl (Trazodone) 100 mg PO BEDTIME [facility] Last Admin: 07/23/19 20:15 Dose: 100 mg Trazodone HCl (Trazodone) 100 mg PO BEDTIME [facility] Last Admin: 07/23/19 20:30 Dose: Not Given Discontinued Medications Albuterol/Ipratropium (Duoneb 3.0-0.5 Mg/3 Ml) 3 ml NEB ONETIME ONE Stop: 07/22/19 11:59 Last Admin: 07/22/19 12:12 Dose: 3 ml Aspirin (Aspirin) 324 mg PO ONETIME STA Stop: 07/22/19 11:06 Last Admin: 07/22/19 11:28 Dose: Not Given Diltiazem HCl (Cardizem Cd) 120 mg PO DAILY [facility] Last Admin: 07/23/19 10:57 Dose: 120 mg Diltiazem HCl (Diltiazem) 10 mg IVPUSH ONETIME ONE Stop: 07/23/19 10:35 Last Admin: 07/23/19 11:03 Dose: 10 mg Furosemide (Lasix) 40 mg IVPUSH NOW ONE Stop: 07/22/19 15:33 Last Admin: 07/22/19 16:29 Dose: 40 mg Furosemide (Lasix) 40 mg IVPUSH NOW ONE Stop: 07/23/19 09:16 Last Admin: 07/23/19 09:53 Dose: 40 mg Furosemide (Lasix) 40 mg IVPUSH NOW ONE Stop: 07/23/19 15:09 Last Admin: 07/23/19 15:43 Dose: 40 mg Pantoprazole Sodium 40 mg/ (Sodium Chloride) 10 mls @ 300 mls/hr IV NOW ONE Stop: 07/22/19 11:13 Last Admin: 07/22/19 11:38 Dose: 300 mls/hr Sodium Chloride (Normal Saline) 1,000 mls @ 150 mls/hr IV STAT ONE Stop: 07/22/19 17:54 Last Admin: 07/22/19 11:28 Dose: 150 mls/hr Magnesium Sulfate 2 gm/ Premix 50 mls @ 50 mls/hr IV ONETIME ONE Stop: 07/24/19 09:33 Last Admin: 07/24/19 08:57 Dose: 50 mls/hr Influenza Virus Vaccine (Pharmacy To Dose - Influenza Vaccine) 1 each IM ONETIME ONE Stop: 07/22/19 14:16 Last Admin: 07/22/19 15:43 Dose: Not Given Influenza Virus Vaccine (Fluzone Quad Syringe) 60 mcg IM .ONCE ONE Stop: 07/22/19 14:31 Last Admin: 07/22/19 16:30 Dose: 60 mcg Iopamidol (Isovue Multipack-370 (76%)) 50 ml IVPUSH ONETIME STA Stop: 07/22/19 15:59 Last Admin: 07/22/19 15:59 Dose: 50 ml Metoprolol Succinate (Toprol Xl) 100 mg PO DAILY [facility] Last Admin: 07/23/19 09:52 Dose: 100 mg Nitroglycerin (Nitrostat) 0.4 mg SL ONETIME STA Stop: 07/22/19 11:06 Last Admin: 07/22/19 11:29 Dose: 0.4 mg Pregabalin [Lyrica] (150 Mg) 1 each PO QID [facility] Last Admin: 07/23/19 09:54 Dose: Not Given Potassium Chloride (Klor-Con M20) 40 meq PO ONETIME ONE Stop: 07/24/19 08:36 Last Admin: 07/24/19 08:57 Dose: 40 meq
--- NOTE | 2019-07-24 17:27 | ECHO ---
The echocardiogram report can be seen in this patient's EMR (Electronic Medical Record) in the REPORTS section. The echocardiogram report has also been scanned into PACS and can be seen there as well. ALDO
== END 2019-07-24 10:45 | DRG 308 ==
LOC: MW.ED 10:34 → MW.MS 12:17 → OBSVTOIN 07-24 08:40
PROVIDERS: ADMIT Internal Medicine; ATTEND Internal Medicine
DX: I48.92 Unspecified atrial flutter (principal); R07.89 Other chest pain; I50.31 Acute diastolic (congestive) heart failure; E11.9 Type 2 diabetes mellitus without complications; I10 Essential (primary) hypertension; R09.89 Other specified symptoms and signs involving the circulatory and respiratory systems; I25.10 Atherosclerotic heart disease of native coronary artery without angina pectoris; J44.9 Chronic obstructive pulmonary disease, unspecified; F12.10 Cannabis abuse, uncomplicated; F17.200 Nicotine dependence, unspecified, uncomplicated; Z79.01 Long term (current) use of anticoagulants; K21.9 Gastro-esophageal reflux disease without esophagitis; Z79.84 Long term (current) use of oral hypoglycemic drugs; G89.29 Other chronic pain; Z86.711 Personal history of pulmonary embolism; Z86.718 Personal history of other venous thrombosis and embolism; M54.9 Dorsalgia, unspecified; F41.9 Anxiety disorder, unspecified; F32.9 Major depressive disorder, single episode, unspecified; F17.210 Nicotine dependence, cigarettes, uncomplicated; I11.0 Hypertensive heart disease with heart failure; Z23 Encounter for immunization; Z86.73 Personal history of transient ischemic attack (TIA), and cerebral infarction without residual deficits; Z98.890 Other specified postprocedural states; I25.2 Old myocardial infarction; Z79.899 Other long term (current) drug therapy; Z79.4 Long term (current) use of insulin; Z91.030 Bee allergy status
CPT/HCPCS: 36415 ×3; 71045; 71275; 80048 ×2; 80053; 80162; 81001; 82962 ×7; 83735 ×2; 83880; 84484 ×3; 85025 ×3; 85610; 90686; 93005 ×2; 93306; 94640; 96361 ×2; 96374; 96375 ×2; 96376; 99285; A9270 ×26; C9113; G0008; G0378 ×2; J1815 ×2; J1940 ×3; J3490; J7040; J7050; Q9967; 99284; J3475; J7620-GY

== ENCOUNTER 2019-07-27 12:15 | Inpatient (IN) | payer MEDICARE ==
[2019-07-27] MEDS ORDERED: Diltiazem 25 MG/5 ML SDV IVPUSH ONE ×3 (12:22→17:32)
[2019-07-27] MEDS ORDERED: Sodium Chloride 0.9% 10 ML Syringe FLUSH PRN ×2 (12:24→12:37)
[2019-07-27] MEDS ORDERED: Sodium Chloride 0.9% 2.5 ML Syringe FLUSH PRN ×2 (12:24→12:37)
[2019-07-27] MEDS ORDERED: Sodium Chloride 0.9% 1,000 ML IV ONE (12:24)
--- NOTE | 2019-07-27 12:38 | EDM.PDOC ---
ED HPI GENERAL MEDICAL PROBLEM - General Chief Complaint: Cardiovascular Problem Stated Complaint: HEART COMPLAINT Time Seen by Provider: 07/27/19 12:36 Source of Information: Reports: Patient History Limitations: Reports: No Limitations - History of Present Illness INITIAL COMMENTS - FREE TEXT/NARRATIVE: History of present illness: []Patient has a history of A. fib/flutter, GA, PE, CVA, was admitted on July 22 for atrial fib flutter, was ruled out for GA and rate controlled but converted back into A. fib flutter with rapid ventricular rate while in the hospital and transferred to [place] for cardioversion. W\Patient was discharged yesterday and stayed in a motel overnight in [place] but states that he had chest pain all night while he was in the motel. He did not return to the hospital but got on a train this morning with chest pain and came straight to the emergency room here. Review of systems: As per history of present illness and below otherwise all systems reviewed and negative. Past medical history: As per history of present illness and as reviewed below otherwise noncontributory. Surgical history: As per history of present illness and as reviewed below otherwise noncontributory. Social history: No reported history of drug or alcohol abuse. Family history: As per history of present illness and as reviewed below otherwise noncontributory. Physical exam: General: Well developed, well nourished in NAD HEENT: Atraumatic, normocephalic, pupils reactive, negative for conjunctival pallor or scleral icterus, mucous membranes moist, throat clear, neck supple, nontender, trachea midline. Lungs: Clear to auscultation, breath sounds equal bilaterally, chest nontender. Heart: S1S2, regular, negative for clicks, rubs, or JVD. Abdomen: NABS, Soft, nondistended, nontender. Negative for masses or hepatosplenomegaly. Negative for costovertebral tenderness. Pelvis: Stable nontender. Genitourinary: Deferred. Rectal: Deferred. Extremities: Atraumatic, negative for cords or calf pain. Neurovascular unremarkable. Neuro: Awake, alert, oriented. Cranial nerves II through XII unremarkable. Cerebellum unremarkable. Motor and sensory unremarkable throughout. Exam nonfocal. Skin:warm and dry Diagnostics: EKG, CBC, chest x-ray, chemistry, troponin Therapeutics: Diltiazem ED Course: Patient given 2 doses of diltiazem IV with decreasing rate remained stable. Patient was given morphine and Ativan for anxiety and pain. Dr. Ansari was consulted and will be admitting this patient Impression: Atrial flutter with RVR Prescriptions: None Plan: Admission for further workup and rate control Definitive disposition and diagnosis as appropriate pending reevaluation and review of above. Generalized Pain Score (Numeric/FACES): 8 - Related Data Allergies Allergy/AdvReac Type Severity Reaction Status Date / Time bee venom protein (honey bee) Allergy Anaphylactic Verified 07/27/19 12:21 Shock Home Meds: Home Meds Apixaban [Eliquis] 5 mg PO BID 04/20/19 [History] DULoxetine HCl [Duloxetine HCl] 1 tab PO DAILY 04/20/19 [History] Insulin Detemir [Levemir Flextouch] 16 units SQ BEDTIME 04/20/19 [History] Pantoprazole Sodium 40 mg PO DAILY 04/20/19 [History] Pregabalin [Lyrica] 150 mg PO QID 04/20/19 [History] metFORMIN [Glucophage] 2 tab PO BID 04/20/19 [History] traZODone HCl [Trazodone HCl] 100 mg PO BEDTIME 04/20/19 [History] Amiodarone [Cordarone] 200 mg PO DAILY #30 tablet 04/24/19 [Rx] Digoxin 125 mcg PO DAILY #30 tablet 04/24/19 [Rx] Diltiazem [Cardizem CD] 120 mg PO DAILY 07/22/19 [History] Metoprolol Succinate 100 mg PO DAILY 07/22/19 [History] QUEtiapine [SEROquel] 50 mg PO BEDTIME 07/22/19 [History] Past Medical History Cardiovascular History: Reports: Arrhythmia, Blood Clots/VTE/DVT, CAD, Hypertension Respiratory History: Reports: COPD Gastrointestinal History: Reports: Bowel Obstruction, GERD, Other (See Below) Other Gastrointestinal History: Intestinal rupture Musculoskeletal History: Reports: Back Pain, Chronic, Fracture Neurological History: Reports: CVA Other Neuro History: 3 strokes in the last 1.5 years Psychiatric History: Reports: Anxiety, Depression Endocrine/Metabolic History: Reports: Diabetes, Type II - Infectious Disease History Infectious Disease History: Reports: Chicken Pox - Past Surgical History Cardiovascular Surgical History: Reports: None Other Cardiovascular Surgeries/Procedures: Cardiac procedure yesterday? for Irregular HR GI Surgical History: Reports: Colonoscopy, Small Bowel Musculoskeletal Surgical History: Reports: Other (See Below) Other Musculoskeletal Surgeries/Procedures:: 6 back surgeries, 2 neck surgeries , titanium plate in neck, titanium plate in lower back Social & Family History - Family History Family Medical History: Noncontributory - Tobacco Use Smoking Status *Q: Current Every Day Smoker Years of Tobacco use: 40 Packs/Tins Daily: 1 - Caffeine Use Caffeine Use: Reports: Coffee - Recreational Drug Use Recreational Drug Use: Yes Drug Use in Last 12 Months: Yes Recreational Drug Type: Reports: Marijuana/Hashish ED ROS GENERAL - Review of Systems Review Of Systems: See Below ED EXAM, GENERAL - Physical Exam Exam: See Below Course - Vital Signs Last Recorded V/S: Last Vital Signs Temp Pulse 141 H 07/27/19 12:19 Resp 18 07/27/19 12:19 BP 101/77 07/27/19 12:19 Pulse Ox 97 07/27/19 12:19 - Orders/Labs/Meds Orders: Active Orders 24 hr Category Date Time Status Patient Status [ADT] Stat ADT 07/27/19 13:20 Active Cardiac Monitoring [RC] . DIRECTED Care 07/27/19 12:36 Active EKG Documentation Completion [RC] STAT Care 07/27/19 12:24 Active EKG Documentation Completion [RC] STAT Care 07/27/19 12:25 Active EKG Documentation Completion [RC] STAT Care 07/27/19 12:36 Inactive Oxygen Therapy, ED [RC] ASDIRECTED Care 07/27/19 12:36 Active Chest 1V Frontal [CR] Stat Exams 07/27/19 12:24 Taken Diltiazem 125 mg Med 07/27/19 13:15 Active Sodium Chloride 0.9% [Normal Saline] 100 ml IV NOW LORazepam [Ativan] Med 07/27/19 13:23 Once 1 mg IVPUSH ONETIME ONE Sodium Chloride 0.9% [Normal Saline] 1,000 ml Med 07/27/19 12:24 Active IV STAT Sodium Chloride 0.9% [Saline Flush] Med 07/27/19 12:24 Active 10 ml FLUSH ASDIRECTED PRN Sodium Chloride 0.9% [Saline Flush] Med 07/27/19 12:24 Active 2.5 ml FLUSH ASDIRECTED PRN Saline Lock Insert [OM.PC] Stat Oth 07/27/19 12:24 Ordered Medication Orders Sodium Chloride (Normal Saline) 1,000 mls @ 125 mls/hr IV STAT ONE Stop: 07/27/19 20:23 Last Admin: 07/27/19 12:42 Dose: 125 mls/hr Diltiazem HCl 125 mg/ Sodium (Chloride) 125 mls @ 7 mls/hr IV NOW [facility]; Protocol Lorazepam (Ativan) 1 mg IVPUSH ONETIME ONE Stop: 07/27/19 13:24 Sodium Chloride (Saline Flush) 10 ml FLUSH ASDIRECTED PRN PRN Reason: Keep Vein Open Sodium Chloride (Saline Flush) 2.5 ml FLUSH ASDIRECTED PRN PRN Reason: Keep Vein Open Labs: Laboratory Tests 07/27/19 07/27/19 07/27/19 Range/Units 12:35 12:35 12:35 WBC 13.77 H (4.0-11.0) K/uL RBC 4.88 (4.50-5.90) M/uL Hgb 15.2 (13.0-17.0) g/dL Hct 47.0 (38.0-50.0) % MCV 96.3 (80.0-98.0) fL MCH 31.1 (27.0-32.0) pg MCHC 32.3 (31.0-37.0) g/dL RDW Std Deviation 53.1 (28.0-62.0) fl RDW Coeff of Dennis 15 (11.0-15.0) % Plt Count 281 (150-400) K/uL MPV 10.20 (7.40-12.00) fL Neut % (Auto) 64.5 (48.0-80.0) % Lymph % (Auto) 26.4 (16.0-40.0) % [place] % (Auto) 7.0 (0.0-15.0) % Eos % (Auto) 1.8 (0.0-7.0) % Baso % (Auto) 0.3 (0.0-1.5) % Neut # (Auto) 8.9 H (1.4-5.7) K/uL Lymph # (Auto) 3.6 H (0.6-2.4) K/uL [place] # (Auto) 1.0 H (0.0-0.8) K/uL Eos # (Auto) 0.3 (0.0-0.7) K/uL Baso # (Auto) 0.0 (0.0-0.1) K/uL Nucleated RBC % 0.0 /100WBC Nucleated RBCs # 0 K/uL INR 0.96 Sodium 137 (136-148) mmol/L Potassium 4.5 (3.5-5.1) mmol/L Chloride 100 (98-107) mmol/L Carbon Dioxide 27.7 (21.0-32.0) mmol/L BUN 15 (7.0-18.0) mg/dL Creatinine 1.0 (0.8-1.3) mg/dL Est Cr Clr Drug Dosing 87.67 mL/min Estimated GFR (MDRD) > 60.0 ml/min Glucose 181 H (74-106) mg/dL Calcium 8.6 (8.5-10.1) mg/dL Total Bilirubin 0.5 (0.2-1.0) mg/dL AST 20 (15-37) IU/L ALT 26 (14-63) IU/L Alkaline Phosphatase 101 (46-116) U/L Troponin I < 0.050 (0.000-0.056) ng/mL Total Protein 7.1 (6.4-8.2) g/dL Albumin 2.9 L (3.4-5.0) g/dL Globulin 4.2 H (2.6-4.0) g/dL Albumin/Globulin Ratio 0.7 L (0.9-1.6) Digoxin 0.5 L (0.9-2.0) ng/mL Meds: Medications Generic Name Dose Route Start Last Admin Trade Name Freq PRN Reason Stop Dose Admin Sodium Chloride 1,000 mls @ 125 mls/hr 07/27/19 12:24 07/27/19 12:42 Normal Saline IV 07/27/19 20:23 125 mls/hr STAT ONE Administration Diltiazem HCl 125 mg/ Sodium 125 mls @ 7 mls/hr 07/27/19 13:15 Chloride IV NOW [facility] Protocol 7 MG/HR Lorazepam 1 mg 07/27/19 13:23 Ativan IVPUSH 07/27/19 13:24 ONETIME ONE Sodium Chloride 10 ml 07/27/19 12:24 Saline Flush FLUSH ASDIRECTED PRN Keep Vein Open Sodium Chloride 2.5 ml 07/27/19 12:24 Saline Flush FLUSH ASDIRECTED PRN Keep Vein Open Discontinued Medications Generic Name Dose Route Start Last Admin Trade Name Freq PRN Reason Stop Dose Admin Diltiazem HCl 20 mg 07/27/19 12:22 07/27/19 12:38 Diltiazem IVPUSH 07/27/19 12:23 20 mg ONETIME ONE Administration Diltiazem HCl 20 mg 07/27/19 12:37 07/27/19 12:43 Diltiazem IVPUSH 07/27/19 12:38 20 mg ONETIME ONE Administration Morphine Sulfate 4 mg 07/27/19 12:51 07/27/19 12:56 Morphine IVPUSH 07/27/19 12:52 4 mg ONETIME ONE Administration Sodium Chloride 10 ml 07/27/19 12:37 Saline Flush FLUSH ASDIRECTED PRN Keep Vein Open Sodium Chloride 2.5 ml 07/27/19 12:37 Saline Flush FLUSH ASDIRECTED PRN Keep Vein Open Departure - Departure Time of Disposition: 13:24 Disposition: Refer to Observation Condition: Good Clinical Impression: Atrial flutter with rapid ventricular response Referrals: PCP,Unknown [Primary Care Provider] - Forms: ED Department Discharge - My Orders Last 24 Hours: My Active Orders 07/27/19 12:36 Cardiac Monitoring [RC] . DIRECTED EKG Documentation Completion [RC] STAT Oxygen Therapy, ED [RC] ASDIRECTED 07/27/19 13:15 Diltiazem 125 mg Sodium Chloride 0.9% [Normal Saline] 100 ml IV NOW 07/27/19 13:20 Patient Status [ADT] Stat 07/27/19 13:23 LORazepam [Ativan] 1 mg IVPUSH ONETIME ONE - Assessment/Plan Last 24 Hours: My Active Orders 07/27/19 12:36 Cardiac Monitoring [RC] . DIRECTED EKG Documentation Completion [RC] STAT Oxygen Therapy, ED [RC] ASDIRECTED 07/27/19 13:15 Diltiazem 125 mg Sodium Chloride 0.9% [Normal Saline] 100 ml IV NOW 07/27/19 13:20 Patient Status [ADT] Stat 10/06/19 13:23 LORazepam [Ativan] 1 mg IVPUSH ONETIME ONE
[2019-07-27] MEDS ORDERED: Morphine 4 MG/ML Syringe IVPUSH ONE (12:51)
[2019-07-27 13:10] LABS: BLOOD UREA NITROGEN,BUN 15 mg/dL (7.0-18.0); CARBON DIOXIDE,CO2 27.7 mmol/L (21.0-32.0); CHLORIDE,CL 100 mmol/L (98-107); GLUCOSE RANDOM 181 mg/dL (74-106); POTASSIUM,K 4.5 mmol/L (3.5-5.1); SODIUM,NA 137 mmol/L (136-148)
[2019-07-27] MEDS ORDERED: Diltiazem 125 MG in Sodium Chloride 0.9% 100 ML IV SCH (13:15)
[2019-07-27] MEDS ORDERED: LORazepam 2 MG/ML SDV IVPUSH ONE (13:23)
--- NOTE | 2019-07-27 13:27 | PCM.SN ---
- Free Text/Narrative Note: [id number]: Called to ER for difficult IV start. Patient History of IV drug use and has a patent IV in right ankle. Attempted times 2 to left arm using ultrasound for both attempts. First attempt to left forearm using 20g 1.88 inch length catheter, good flash but unable to advance. Second attempt to left Basilic vein using 20g 1.88 inch length catheter with success. Patient tolerated well. IV secured and patent.
--- NOTE | 2019-07-27 13:32 | CR ---
INDICATION: Chest pain TECHNIQUE: Chest 1 view. COMPARISON: 07/22/19 FINDINGS: Cardiovascular and mediastinum: Heart size and vasculature are normal in caliber and appearance. Mediastinum is within normal limits. Lungs and pleural space: Lungs are clear. No sign of infiltrate or mass. No sign of pleural effusion. No pneumothorax. Bones and soft tissues: No significant findings. IMPRESSION: Unremarkable chest. Dictated by: Pelon Ambriz MD @ 07/27/2019 13:31:03 (Electronically Signed)
--- NOTE | 2019-07-27 15:35 | PCM.HP.2 ---
H&P History of Present Illness - General Date of Service: 07/27/19 Admit Problem/Dx: Admission Diagnosis/Problem Admission Diagnosis/Problem Atrial flutter, atrial fibrillation with RVR post electrochemical conversion Source of Information: Patient History Limitations: Reports: No Limitations - History of Present Illness Initial Comments - Free Text/Narative: The patient is a 59-year-old gentleman who has a history of atrial fibrillation with RVR and has presented to the emergency department with a chief complaint of chest pain with A. fib and RVR. The patient had been transferred on July [facility] to [facility] for [facility]version. The patient has been in other hospitals namely [facility] and had undergone conversion back to normal sinus rhythm but had returned atrial fibrillation. The patient says that he has not been taking his medications. The patient had presented to the emergency room today primarily out of concern for shortness of breath along with A. fib and flutter. The patient also has reported dizziness without syncopal episode. He has had shortness of breath. Chest pain has resolved. The patient reports that he would like to have a nicotine patch. He has had no specific aggravating or relieving factors. Onset of Symptoms: Reports: Gradual Duration of Symptoms: Reports: Day(s):, Getting Worse Location: Reports: Chest Quality: Reports: Ache, Throbbing Severity: Moderate Improves with: Reports: Medication, Rest Worsens with: Reports: Movement Associated Symptoms: Reports: Chest Pain Generalized Pain Score (Numeric/FACES): 8 - Related Data Allergies/Adverse Reactions: Allergies Allergy/AdvReac Type Severity Reaction Status Date / Time bee venom protein (honey bee) Allergy Anaphylactic Verified 07/27/19 14:40 Shock Home Medications: Home Meds Apixaban [Eliquis] 5 mg PO BID 04/20/19 [History] DULoxetine HCl [Duloxetine HCl] 1 tab PO DAILY 04/20/19 [History] Insulin Detemir [Levemir Flextouch] 16 units SQ BEDTIME 04/20/19 [History] Pantoprazole Sodium 40 mg PO DAILY 04/20/19 [History] Pregabalin [Lyrica] 150 mg PO QID 04/20/19 [History] metFORMIN [Glucophage] 2 tab PO BID 04/20/19 [History] traZODone HCl [Trazodone HCl] 100 mg PO BEDTIME 04/20/19 [History] Amiodarone [Cordarone] 200 mg PO DAILY #30 tablet 04/24/19 [Rx] Digoxin 125 mcg PO DAILY #30 tablet 04/24/19 [Rx] Diltiazem [Cardizem CD] 120 mg PO DAILY 07/22/19 [History] Metoprolol Succinate 100 mg PO DAILY 07/22/19 [History] QUEtiapine [SEROquel] 50 mg PO BEDTIME 07/22/19 [History] Past Medical History HEENT History: Reports: None Cardiovascular History: Reports: Arrhythmia, Blood Clots/VTE/DVT, CAD, Hypertension Respiratory History: Reports: COPD Gastrointestinal History: Reports: Bowel Obstruction, GERD, Other (See Below) Other Gastrointestinal History: Intestinal rupture Genitourinary History: Reports: None Musculoskeletal History: Reports: Back Pain, Chronic, Fracture Neurological History: Reports: CVA Other Neuro History: 3 strokes in the last 1.5 years Psychiatric History: Reports: Anxiety, Depression Endocrine/Metabolic History: Reports: Diabetes, Type II Hematologic History: Reports: None Immunologic History: Reports: None Oncologic (Cancer) History: Reports: None Dermatologic History: Reports: None - Infectious Disease History Infectious Disease History: Reports: Chicken Pox - Past Surgical History Cardiovascular Surgical History: Reports: Other (See Below) Other Cardiovascular Surgeries/Procedures: Cardioversion GI Surgical History: Reports: Colonoscopy, Small Bowel Musculoskeletal Surgical History: Reports: Other (See Below) Other Musculoskeletal Surgeries/Procedures:: 6 back surgeries, 2 neck surgeries , titanium plate in neck, titanium plate in lower back Social & Family History - Family History Family Medical History: Noncontributory - Tobacco Use Smoking Status *Q: Current Every Day Smoker Years of Tobacco use: 48 Packs/Tins Daily: 0.8 Used Tobacco, but Quit: No - Caffeine Use Caffeine Use: Reports: Coffee - Alcohol Use Alcohol Use History: No - Recreational Drug Use Recreational Drug Use: Yes Drug Use in Last 12 Months: Yes Recreational Drug Type: Reports: Marijuana/Hashish Other Recreational Drug Type: Patient states that he has not smoked marijuana for several days, since being admitted to the hospital on July 22. Patient states that he get his marijuana while still living in [place]. Recreational Drug Use Frequency: Daily - Living Situation & Occupation Living situation: Reports: with Family Occupation: Retired H&P Review of Systems - Review of Systems: Review Of Systems: See Below General: Reports: Weakness, Fatigue HEENT: Reports: Headaches, Vertigo Pulmonary: Reports: Shortness of Breath Cardiovascular: Reports: Chest Pain (No chest pain.), Palpitations, Other ( Tachycardia) Gastrointestinal: Reports: No Symptoms Genitourinary: Reports: No Symptoms Musculoskeletal: Reports: Neck Pain (Chronic) Skin: Reports: No Symptoms Psychiatric: Reports: No Symptoms Neurological: Reports: No Symptoms Hematologic/Lymphatic: Reports: No Symptoms Immunologic: Reports: No Symptoms Exam - Exam Exam: See Below - Vital Signs Vital Signs: Last Vital Signs Temp 36.5 C 07/27/19 13:41 Pulse 141 H 07/27/19 12:19 Resp 18 07/27/19 13:41 BP 103/66 07/27/19 13:41 Pulse Ox 91 L 07/27/19 13:41 Weight: 100.017 kg - Exam Quality Assessment: No: Supplemental Oxygen General: Alert, Oriented, Cooperative, Mild Distress HEENT: Conjunctiva Clear, EACs Clear, EOMI, Hearing Intact, Nares Patent, Pupils Equal, PERRLA. No: Mucosa Moist & [place] (Dry) Neck: Supple, Trachea Midline Lungs: Clear to Auscultation, Normal Respiratory Effort Cardiovascular: Normal S1, Normal S2, Irregular Rhythm, Tachycardia GI/Abdominal Exam: Normal Bowel Sounds, Soft, Non-Tender, No Distention. No: Guarding, Rigid, Rebound Back Exam: Normal Inspection, Full Range of Motion Extremities: Normal Inspection, Normal Range of Motion, No Pedal Edema Skin: Warm, Dry, Intact Neurological: Cranial Nerves Intact, Reflexes Equal Bilateral Neuro Extensive - Mental Status: Alert, Oriented x3 Neuro Extensive - Motor, Sensory, Reflexes: CN II-XII Intact Psychiatric: Alert, Normal Affect, Normal Mood - Patient Data Lab Results Last 24 hrs: Laboratory Results - last 24 hr 07/27/19 07/27/19 07/27/19 Range/Units 12:35 12:35 12:35 WBC 13.77 H (4.0-11.0) K/uL RBC 4.88 (4.50-5.90) M/uL Hgb 15.2 (13.0-17.0) g/dL Hct 47.0 (38.0-50.0) % MCV 96.3 (80.0-98.0) fL MCH 31.1 (27.0-32.0) pg MCHC 32.3 (31.0-37.0) g/dL RDW Std Deviation 53.1 (28.0-62.0) fl RDW Coeff of Dennis 15 (11.0-15.0) % Plt Count 281 (150-400) K/uL MPV 10.20 (7.40-12.00) fL Neut % (Auto) 64.5 (48.0-80.0) % Lymph % (Auto) 26.4 (16.0-40.0) % Gove % (Auto) 7.0 (0.0-15.0) % Eos % (Auto) 1.8 (0.0-7.0) % Baso % (Auto) 0.3 (0.0-1.5) % Neut # (Auto) 8.9 H (1.4-5.7) K/uL Lymph # (Auto) 3.6 H (0.6-2.4) K/uL Gove # (Auto) 1.0 H (0.0-0.8) K/uL Eos # (Auto) 0.3 (0.0-0.7) K/uL Baso # (Auto) 0.0 (0.0-0.1) K/uL Nucleated RBC % 0.0 /100WBC Nucleated RBCs # 0 K/uL INR 0.96 Sodium 137 (136-148) mmol/L Potassium 4.5 (3.5-5.1) mmol/L Chloride 100 (98-107) mmol/L Carbon Dioxide 27.7 (21.0-32.0) mmol/L BUN 15 (7.0-18.0) mg/dL Creatinine 1.0 (0.8-1.3) mg/dL Est Cr Clr Drug Dosing 87.67 mL/min Estimated GFR (MDRD) > 60.0 ml/min Glucose 181 H (74-106) mg/dL Calcium 8.6 (8.5-10.1) mg/dL Total Bilirubin 0.5 (0.2-1.0) mg/dL AST 20 (15-37) IU/L ALT 26 (14-63) IU/L Alkaline Phosphatase 101 (46-116) U/L Troponin I < 0.050 (0.000-0.056) ng/mL Total Protein 7.1 (6.4-8.2) g/dL Albumin 2.9 L (3.4-5.0) g/dL Globulin 4.2 H (2.6-4.0) g/dL Albumin/Globulin Ratio 0.7 L (0.9-1.6) Digoxin 0.5 L (0.9-2.0) ng/mL Result Diagrams: 07/27/19 12:35 07/27/19 12:35 EKG INTERPRETATION EKG Date: 07/27/19 Time: 12:17 Rhythm: A-Fib Rate (Beats/Min): 135 [place]: Normal P-Wave: Variable Comparison: NA - No Prior EKG - Problem List (1) Atrial fibrillation with RVR SNOMED Code(s): 044148189430485 ICD Code: I48.91 - UNSPECIFIED ATRIAL FIBRILLATION Status: Acute Priority : High Current Visit: Yes Problem Details: Recurrent, post conversion (2) Atypical chest pain SNOMED Code(s): 979768446 ICD Code: R07.89 - OTHER CHEST PAIN Status: Acute Priority: High Current Visit: Yes (3) Insomnia disorder SNOMED Code(s): 398573550 ICD Code: G47.00 - INSOMNIA, UNSPECIFIED Status: Chronic Priority: Medium Current Visit: Yes Qualifiers: Insomnia type: due to medical condition Qualified Code(s): G47.01 - Insomnia due to medical condition (4) Diabetes mellitus type 2, controlled SNOMED Code(s): 78365196, 987126506 ICD Code: E11.9 - TYPE 2 DIABETES MELLITUS WITHOUT COMPLICATIONS Status: Chronic Priority: High Current Visit: Yes Qualifiers: Diabetes mellitus nursing home insulin use: with nursing home use Diabetes mellitus complication status: without complication Qualified Code(s): E11.9 - Type 2 diabetes mellitus without complications; 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 DIRECTED Care 07/27/19 12:36 Active EKG Documentation Completion [RC] STAT Care 07/27/19 12:25 Active EKG Documentation Completion [RC] STAT Care 07/27/19 12:36 Inactive Oxygen Therapy, ED [RC] ASDIRECTED Care 07/27/19 12:36 Active Sodium Chloride 0.9% [Normal Saline] 1,000 ml Med 07/27/19 12:24 Active IV STAT Sodium Chloride 0.9% [Saline Flush] Med 07/27/19 12:24 Active 10 ml FLUSH ASDIRECTED PRN Sodium Chloride 0.9% [Saline Flush] Med 07/27/19 12:24 Active 2.5 ml FLUSH ASDIRECTED PRN Saline Lock Insert [OM.PC] Stat Oth 07/27/19 12:24 Ordered Medication Orders Sodium Chloride (Normal Saline) 1,000 mls @ 125 mls/hr IV STAT ONE Stop: 07/27/19 20:23 Last Admin: 07/27/19 12:42 Dose: 125 mls/hr Sodium Chloride (Saline Flush) 10 ml FLUSH ASDIRECTED PRN PRN Reason: Keep Vein Open Sodium Chloride (Saline Flush) 2.5 ml FLUSH ASDIRECTED PRN PRN Reason: Keep Vein Open Assessment/Plan Comment:: The patient is a 59-year-old gentleman who will be admitted as an inpatient and placed in the intensive care unit secondary to being on Cardizem drip. The patient will be kept on telemetry and his vital signs are be monitored very closely to keep his heart rate around 100-110. The patient will be consulted with cardiology who he has seen in the past here. He'll be kept on appropriate ADA diet along with Accu-Cheks before meals and at bedtime. The patient is currently taking apixaban for his chronic anticoagulation and this will be continued. The patient will not need to have DVT prophylaxis at this time. Repeat laboratory studies have been ordered. Patient also has been encouraged to ambulate. The patient's home medications have been restarted although there is some concern as to whether or not his medication list is accurate. I had a long discussion with the patient with regards to atrial fibrillation postconversion and he will also be consulted with cardiology. - Mortality Measure Prognosis:: Good
[2019-07-27] MEDS ORDERED: Docusate Sodium 100 MG Cap PO PRN (15:37)
[2019-07-27] MEDS ORDERED: Acetaminophen 325 MG Tab PO PRN (15:37)
[2019-07-27] MEDS ORDERED: Temazepam 15 MG Cap PO PRN (15:37)
[2019-07-27] MEDS: Sodium Chloride 0.9% 1,000 ML IV SCH ×2 (16:10→23:46)
[2019-07-27] MEDS: Diltiazem 125 MG in Sodium Chloride 0.9% 100 ML IV SCH (16:45)
[2019-07-27] MEDS: oxyCODONE 5 MG Tab PO PRN ×2 (17:23→21:32)
[2019-07-27] MEDS: Nicotine 14 MG/24 Hr Patch TRDERM SCH (17:23)
[2019-07-27] MEDS: Pregabalin 75 MG Cap PO SCH ×3 (17:24→21:36)
[2019-07-27] MEDS: metFORMIN 500 MG Tab PO SCH (17:24)
[2019-07-27] MEDS: Insulin Aspart 100 Units/ML 3 ML Pen SUBCUT SCH (17:34)
--- NOTE | 2019-07-27 17:34 | CR ---
Foot pain TECHNIQUE : Two views of the right foot. Findings: Normal alignment. No fractures. No acute osseous abnormalities. Soft tissues appear unremarkable Dictated by Shari Jaramillo MD @ Jul 27 2019 5:31PM Signed by Dr. Shari Jaramillo @ Jul 27 2019 5:32PM
--- NOTE | 2019-07-27 18:56 | PN ---
THC Physician - Brief Progress [id number]/06/2019 18:37[facility], [place] - MWN (FRANCIAN) - ERICK CANDE GODINEZDate of Service 07/27/2019 18:37HPI/Events of Note eICU admission note:59-year-old male presenting with A. fib with RVR. Patient was no nadherent to his medical regiment. Apparently the patient was recently just [facility] and moved to a tertiary care facility for cardioversion. He has had multiple cardioversions in the past. The patient apparently once he was discharged from a tertiary care facility stayed in a m otel by the hospital with chest pain all night. Patient then got on a train with his chest pain and came straight back to the emergency room here at [facility].Unknown what the patient's medication should be as the patient was not taking his heart medications per EMR review. It does ap pear that he may have been taking digoxin and amiodarone.On video screen monitor exam:59-year-old mal e no acute distress snoring with apneic periodsHeart rate 118 and A. fib with RVR SPO2 91% respirate 15 blood pressure 102/69EICU assessment:A. fib / flutter with RVR status post multiple cardioversions on apixaban recommend in the future patient be evaluated for possible ablation no further cardiovers ionsPatient should be evaluated by neuropsychiatry if possible for competence as he continues to do r andom things with both his medications as well as getting on trains with unstable things such as ches t pain.Likely DLCNG0Dq of PEEICU recs:Continue anticoagulationNeuropsych eval for competenceBlood glu cose controlObtain outside recordsRestart appropriate medsMay need ablation not cardioversionPSG outp atientAgree with cardiazem gtt for nowMay need digoxin loadind/ amiodaroneCardio consultationPlease c all as neededInterventions Major-Arrhythmia - evaluation and managementMinor-Communication with other healthcare providers and/or family, Routine modifications to care plan (e.g. PRN medications for tiana n, fever)
[2019-07-27] MEDS: Apixaban 5 MG Tab PO SCH (20:05)
[2019-07-27] MEDS ORDERED: traZODone 50 MG Tab PO SCH (21:00)
[2019-07-27] MEDS: LORazepam 0.5 MG Tab PO PRN (22:52)
[2019-07-28] MEDS: Diltiazem 125 MG in Sodium Chloride 0.9% 100 ML IV SCH (04:10)
[2019-07-28] MEDS: Pregabalin 75 MG Cap PO SCH ×2 (06:29→11:35)
[2019-07-28] MEDS: oxyCODONE 5 MG Tab PO PRN ×2 (06:31→10:32)
[2019-07-28 07:02] LABS: BLOOD UREA NITROGEN,BUN 16 mg/dL (7.0-18.0); CARBON DIOXIDE,CO2 27.1 mmol/L (21.0-32.0); CHLORIDE,CL 104 mmol/L (98-107); GLUCOSE RANDOM 193 mg/dL (74-106); POTASSIUM,K 4.6 mmol/L (3.5-5.1); SODIUM,NA 138 mmol/L (136-148)
[2019-07-28] MEDS: Insulin Aspart 100 Units/ML 3 ML Pen SUBCUT SCH ×2 (07:58→11:34)
[2019-07-28] MEDS: metFORMIN 500 MG Tab PO SCH (08:01)
[2019-07-28] MEDS: Apixaban 5 MG Tab PO SCH (08:20)
[2019-07-28] MEDS: Nicotine 14 MG/24 Hr Patch TRDERM SCH (08:38)
--- NOTE | 2019-07-28 08:48 | PN ---
THC Physician - Brief Progress [id number]/07/2019 08:40[facility] Pat[place], [place] - BHAKTIN (FRANCIAN) - ERICK HWANGCANDE TODDPrabhakarDate of Service 07/28/2019 08:40HPI/Events of Note eICU Progress [id number] admitted for afib RVR. History obtained primarily from review of EMR.Came ra exam: Laying in bed. Vitals monitor reviewed. HR 130sVitals: reviewedLabs: reviewedRadiology: revi ewedMeds: reviewedeICU Impression and Recommendations:Atrial Fibrillation with Rapid Ventricular res ponseTarget Mg > 2, K>4Will defer anticoagulation to primary service, agree with apixaban, may need t o change to IV heparin if inpatient procedure plannedDefer rhythm or rate control strategy to primary service and cardiologyFor rate control, recommend target rate of <110bpm. Will defer choice of rate control agent to primary service, and cardiology, can consider increasing PO diltiazem to assist with weaning off diltiazem gtt if blood pressure toleratesShould patientxs blood pressure fail to tolerat e medications, consider alternative agent such as digoxin (understanding that there may be some issue with non-compliance)Should patient become unstable, recommend synchronized cardioversion (we are adelso ilable to assist with this if desired).Diabetes MellitusHyperglycemia- Glycemic management per primar y service, we are available to assist if desired- Recommend targeted glucose goal of <180, and discon tinuation of oral anti-hyperglycemics, with initiation of insulin- consider A1c if not obtained in fl st 6 monthsQuestion of competency- neuropsychiatry consult per primary serviceDVT and GI prophylaxis as appropriate.We are available to assist in further clarification, or implementation of any of the a da recommendations if desired by primary service.Thank you for allowing us to participate in the ca re of this patient.The above note transcribed via dictation software. Please excuse any errors.Interv entions Major-Arrhythmia - evaluation and management, Hyperglycemia - active titration of insulin the rapy
[2019-07-28] MEDS ORDERED: Pantoprazole 40 MG Tab.CR PO SCH (09:00)
[2019-07-28] MEDS ORDERED: Diltiazem 120 MG Cap.CD PO SCH (09:00)
[2019-07-28] MEDS ORDERED: Metoprolol Succinate 100 MG Tab.ER PO SCH (09:00)
[2019-07-28] MEDS ORDERED: Amiodarone 200 MG Tab PO SCH (09:00)
[2019-07-28] MEDS ORDERED: Digoxin 125 MCG Tab PO SCH (09:00)
[2019-07-28] MEDS ORDERED: DULoxetine 60 MG Cap PO SCH (09:00)
--- NOTE | 2019-07-28 10:00 | PCM.DCSUM1 ---
Discharge Summary - Hospital Course Free Text/Narrative:: The patient was admitted for atrial fibrillation with atrial flutter and is currently post multiple conversions. Diagnosis: Stroke: No - Discharge Data Discharge Date: 07/28/19 Discharge Disposition: DC/Tfer to Acute Hospital 02 Condition: Good - Referral to Home Health Primary Care Physician: PCP Unknown - Discharge Diagnosis/Problem(s) (1) Atrial flutter with rapid ventricular response SNOMED Code(s): 4206695, 6734977 ICD Code: I48.92 - UNSPECIFIED ATRIAL FLUTTER Status: Acute Priority: High Current Visit: Yes (2) Atrial fibrillation with RVR SNOMED Code(s): 595590323296319 ICD Code: I48.91 - UNSPECIFIED ATRIAL FIBRILLATION Status: Acute Priority : High Current Visit: Yes Problem Details: Recurrent, post conversion (3) Atypical chest pain SNOMED Code(s): 539539260 ICD Code: R07.89 - OTHER CHEST PAIN Status: Acute Priority: High Current Visit: Yes (4) Insomnia disorder SNOMED Code(s): 391502687 ICD Code: G47.00 - INSOMNIA, UNSPECIFIED Status: Chronic Priority: Medium Current Visit: Yes Qualifiers: Insomnia type: due to medical condition Qualified Code(s): G47.01 - Insomnia due to medical condition (5) Diabetes mellitus type 2, controlled SNOMED Code(s): 13593470, 441370315 ICD Code: E11.9 - TYPE 2 DIABETES MELLITUS WITHOUT COMPLICATIONS Status: Chronic Priority: High Current Visit: Yes Qualifiers: Diabetes mellitus terminal carman insulin use: with terminal carman use Diabetes mellitus complication status: without complication Qualified Code(s): E11.9 - Type 2 diabetes mellitus without complications; Z79.4 - long term (current) use of insulin (6) Chronic anticoagulation SNOMED Code(s): 347027550 ICD Code: Z79.01 - MANAGER RECOVERY (CURRENT) USE OF ANTICOAGULANTS Status: Chronic Priority: High Current Visit: Yes - Patient Summary/Data Hospital Course: The patient is a 59-year-old gentleman who has a history of atrial fibrillation and atrial flutter is with multiple medical and electrical conversions had presented to the emergency department with atrial fibrillation with RVR. The patient was last admitted and subsequently transferred on July 22 due to atrial fibrillation/flutter. He also has a history of myocardial infarction, pulmonary emboli and CVA. The patient was admitted to the intensive care unit and he was placed on diltiazem drip. The patient had been at 5 mg and this had controlled his RVR and has had pulse rate between 90 and 130. The patient also had been discharged previously from [facility] and had also undergone conversion care and had been given medications. The patient had not been taking his medications as he was concerned that some of them might of change. The patient also had been told that if he had further problems he would be considered for ablation and subsequent pacemaker. The patient had been tolerating ICU treatment and diltiazem drip. The patient also has been on chronic anticoagulation with Eliquis and this will be continued. The patient has a history of diabetes mellitus type 2 and he had been kept on an ADA diet with insulin sliding scale and Accu-Cheks before meals and at bedtime. The patient's latest blood sugar was 193 mg/dL. He also had 3 sets of troponins taken to rule out myocardial infarction and all 3 were undetectable. The patient will be transferred to tertiary care center, [facility], for admission, consultation with cardiology and electrophysiology. The patient will be discharged from acute hospitalization once transportation and bed is available. Dr. Pelayo has accepted the patient for transfer. - Patient Instructions Diet: Heart Healthy Diet, Diabetic Diet Activity: As Tolerated - Discharge Plan *PRESCRIPTION DRUG MONITORING PROGRAM REVIEWED*: No *COPY OF PRESCRIPTION DRUG MONITORING REPORT IN PATIENT ALEAH: No Home Medications: Home Meds Apixaban [Eliquis] 5 mg PO BID 04/20/19 [History] DULoxetine HCl [Duloxetine HCl] 1 tab PO DAILY 04/20/19 [History] Insulin Detemir [Levemir Flextouch] 16 units SQ BEDTIME 04/20/19 [History] Pantoprazole Sodium 40 mg PO DAILY 04/20/19 [History] Pregabalin [Lyrica] 150 mg PO QID 04/20/19 [History] metFORMIN [Glucophage] 2 tab PO BID 04/20/19 [History] traZODone HCl [Trazodone HCl] 100 mg PO BEDTIME 04/20/19 [History] Amiodarone [Cordarone] 200 mg PO DAILY #30 tablet 04/24/19 [Rx] Digoxin 125 mcg PO DAILY #30 tablet 04/24/19 [Rx] Diltiazem [Cardizem CD] 120 mg PO DAILY 07/22/19 [History] Metoprolol Succinate 100 mg PO DAILY 07/22/19 [History] QUEtiapine [SEROquel] 50 mg PO BEDTIME 07/22/19 [History] Oxygen Therapy Mode: Room Air Referrals: PCP,Unknown [Primary Care Provider] - Zuleika Thompson MD [Physician] - - Discharge Summary/Plan Comment DC Time >30 min.: Yes - General Info Date of Service: 07/28/19 Admission Dx/Problem (Free Text: Admission Diagnosis/Problem Admission Diagnosis/Problem Atrial flutter, atrial fibrillation with RVR post electrochemical conversion Subjective Update: The patient feels somewhat better today. He is still having atrial flutter with variable conduction. Functional Status: Reports: Pain Controlled - Review of Systems General: Reports: No Symptoms HEENT: Reports: No Symptoms Pulmonary: Reports: Shortness of Breath Cardiovascular: Reports: Palpitations Gastrointestinal: Reports: No Symptoms Genitourinary: Reports: No Symptoms Musculoskeletal: Reports: No Symptoms Skin: Reports: No Symptoms Neurological: Reports: No Symptoms Psychiatric: Reports: No Symptoms - Patient Data Vitals - Most Recent: Last Vital Signs Temp 36.9 C 07/28/19 08:00 Pulse 106 H 07/28/19 08:22 Resp 18 07/28/19 09:00 BP 114/54 L 07/28/19 09:00 Pulse Ox 88 L 07/28/19 09:00 Weight - Most Recent: 99.6 kg I&O - Last 24 hours: Intake & Output 07/27/19 07/28/19 07/28/19 22:59 06:59 14:59 Intake Total 2020 Output Total 1300 Balance 721 Lab Results - Last 24 hrs: Laboratory Results - last 24 hr 07/27/19 07/27/19 07/27/19 Range/Units 12:35 12:35 12:35 WBC 13.77 H (4.0-11.0) K/uL RBC 4.88 (4.50-5.90) M/uL Hgb 15.2 (13.0-17.0) g/dL Hct 47.0 (38.0-50.0) % MCV 96.3 (80.0-98.0) fL MCH 31.1 (27.0-32.0) pg MCHC 32.3 (31.0-37.0) g/dL RDW Std Deviation 53.1 (28.0-62.0) fl RDW Coeff of Dennis 15 (11.0-15.0) % Plt Count 281 (150-400) K/uL MPV 10.20 (7.40-12.00) fL Neut % (Auto) 64.5 (48.0-80.0) % Lymph % (Auto) 26.4 (16.0-40.0) % Jay % (Auto) 7.0 (0.0-15.0) % Eos % (Auto) 1.8 (0.0-7.0) % Baso % (Auto) 0.3 (0.0-1.5) % Neut # (Auto) 8.9 H (1.4-5.7) K/uL Lymph # (Auto) 3.6 H (0.6-2.4) K/uL Jay # (Auto) 1.0 H (0.0-0.8) K/uL Eos # (Auto) 0.3 (0.0-0.7) K/uL Baso # (Auto) 0.0 (0.0-0.1) K/uL Nucleated RBC % 0.0 /100WBC Nucleated RBCs # 0 K/uL INR 0.96 Sodium 137 (136-148) mmol/L Potassium 4.5 (3.5-5.1) mmol/L Chloride 100 (98-107) mmol/L Carbon Dioxide 27.7 (21.0-32.0) mmol/L BUN 15 (7.0-18.0) mg/dL Creatinine 1.0 (0.8-1.3) mg/dL Est Cr Clr Drug Dosing 87.67 mL/min Estimated GFR (MDRD) > 60.0 ml/min Glucose 181 H (74-106) mg/dL POC Glucose (60-110) mg/dL Calcium 8.6 (8.5-10.1) mg/dL Total Bilirubin 0.5 (0.2-1.0) mg/dL AST 20 (15-37) IU/L ALT 26 (14-63) IU/L Alkaline Phosphatase 101 (46-116) U/L Troponin I < 0.050 (0.000-0.056) ng/mL Total Protein 7.1 (6.4-8.2) g/dL Albumin 2.9 L (3.4-5.0) g/dL Globulin 4.2 H (2.6-4.0) g/dL Albumin/Globulin Ratio 0.7 L (0.9-1.6) Digoxin 0.5 L (0.9-2.0) ng/mL 07/27/19 07/27/19 07/27/19 Range/Units 16:56 17:10 22:40 WBC (4.0-11.0) K/uL RBC (4.50-5.90) M/uL Hgb (13.0-17.0) g/dL Hct (38.0-50.0) % MCV (80.0-98.0) fL MCH (27.0-32.0) pg MCHC (31.0-37.0) g/dL RDW Std Deviation (28.0-62.0) fl RDW Coeff of Dennis (11.0-15.0) % Plt Count (150-400) K/uL MPV (7.40-12.00) fL Neut % (Auto) (48.0-80.0) % Lymph % (Auto) (16.0-40.0) % Jay % (Auto) (0.0-15.0) % Eos % (Auto) (0.0-7.0) % Baso % (Auto) (0.0-1.5) % Neut # (Auto) (1.4-5.7) K/uL Lymph # (Auto) (0.6-2.4) K/uL Jay # (Auto) (0.0-0.8) K/uL Eos # (Auto) (0.0-0.7) K/uL Baso # (Auto) (0.0-0.1) K/uL Nucleated RBC % /100WBC Nucleated RBCs # K/uL INR Sodium (136-148) mmol/L Potassium (3.5-5.1) mmol/L Chloride (98-107) mmol/L Carbon Dioxide (21.0-32.0) mmol/L BUN (7.0-18.0) mg/dL Creatinine (0.8-1.3) mg/dL Est Cr Clr Drug Dosing mL/min Estimated GFR (MDRD) ml/min Glucose (74-106) mg/dL POC Glucose 97 (60-110) mg/dL Calcium (8.5-10.1) mg/dL Total Bilirubin (0.2-1.0) mg/dL AST (15-37) IU/L ALT (14-63) IU/L Alkaline Phosphatase (46-116) U/L Troponin I < 0.050 < 0.050 (0.000-0.056) ng/mL Total Protein (6.4-8.2) g/dL Albumin (3.4-5.0) g/dL Globulin (2.6-4.0) g/dL Albumin/Globulin Ratio (0.9-1.6) Digoxin (0.9-2.0) ng/mL 07/28/19 07/28/19 Range/Units 05:30 05:30 WBC 11.83 H (4.0-11.0) K/uL RBC 4.74 (4.50-5.90) M/uL Hgb 14.6 (13.0-17.0) g/dL Hct 46.7 (38.0-50.0) % MCV 98.5 H (80.0-98.0) fL MCH 30.8 (27.0-32.0) pg MCHC 31.3 (31.0-37.0) g/dL RDW Std Deviation 55.4 (28.0-62.0) fl RDW Coeff of Dennis 15 (11.0-15.0) % Plt Count 285 (150-400) K/uL MPV 10.60 (7.40-12.00) fL Neut % (Auto) 57.7 (48.0-80.0) % Lymph % (Auto) 31.3 (16.0-40.0) % Jay % (Auto) 8.8 (0.0-15.0) % Eos % (Auto) 1.9 (0.0-7.0) % Baso % (Auto) 0.3 (0.0-1.5) % Neut # (Auto) 6.8 H (1.4-5.7) K/uL Lymph # (Auto) 3.7 H (0.6-2.4) K/uL Jay # (Auto) 1.0 H (0.0-0.8) K/uL Eos # (Auto) 0.2 (0.0-0.7) K/uL Baso # (Auto) 0.0 (0.0-0.1) K/uL Nucleated RBC % 0.0 /100WBC Nucleated RBCs # 0 K/uL INR Sodium 138 (136-148) mmol/L Potassium 4.6 (3.5-5.1) mmol/L Chloride 104 (98-107) mmol/L Carbon Dioxide 27.1 (21.0-32.0) mmol/L BUN 16 (7.0-18.0) mg/dL Creatinine 1.0 (0.8-1.3) mg/dL Est Cr Clr Drug Dosing 87.67 mL/min Estimated GFR (MDRD) > 60.0 ml/min Glucose 193 H (74-106) mg/dL POC Glucose (60-110) mg/dL Calcium 8.4 L (8.5-10.1) mg/dL Total Bilirubin 0.4 (0.2-1.0) mg/dL AST 21 (15-37) IU/L ALT 27 (14-63) IU/L Alkaline Phosphatase 94 (46-116) U/L Troponin I (0.000-0.056) ng/mL Total Protein 6.5 (6.4-8.2) g/dL Albumin 2.7 L (3.4-5.0) g/dL Globulin 3.8 (2.6-4.0) g/dL Albumin/Globulin Ratio 0.7 L (0.9-1.6) Digoxin (0.9-2.0) ng/mL Med Orders - Current: Current Medications Acetaminophen (Tylenol) 650 mg PO Q4H PRN PRN Reason: Pain (Mild 1-3)/fever Amiodarone HCl (Cordarone) 200 mg PO DAILY [facility] Last Admin: 07/28/19 08:21 Dose: 200 mg Apixaban (Eliquis) 5 mg PO BID [facility] Last Admin: 07/28/19 08:20 Dose: 5 mg Digoxin (Lanoxin) 125 mcg PO DAILY [facility] Last Admin: 07/28/19 08:21 Dose: 125 mcg Diltiazem HCl (Cardizem Cd) 120 mg PO DAILY [facility] Last Admin: 07/28/19 08:22 Dose: 120 mg Docusate Sodium (Colace) 100 mg PO BID PRN PRN Reason: Constipation Duloxetine HCl (Cymbalta) 60 mg PO DAILY [facility] Last Admin: 07/28/19 08:21 Dose: 60 mg Sodium Chloride (Normal Saline) 1,000 mls @ 75 mls/hr IV ASDIRECTED [facility] Last Admin: 07/27/19 23:46 Dose: 75 mls/hr Diltiazem HCl 125 mg/ Sodium (Chloride) 125 mls @ 5 mls/hr IV NOW [facility]; Protocol Last Titration: 07/28/19 09:04 Dose: 5 mg/hr, 5 mls/hr Insulin Aspart (Novolog) 0 unit SUBCUT TIDAC [facility]; Protocol Last Admin: 07/28/19 07:58 Dose: 1 unit Lorazepam (Ativan) 0.5 mg PO Q6H PRN PRN Reason: Anxiety Last Admin: 07/27/19 22:52 Dose: 0.5 mg Metformin HCl (Glucophage) 1,000 mg PO BIDMEALS [facility] Last Admin: 07/28/19 08:01 Dose: 1,000 mg Metoprolol Succinate (Toprol Xl) 100 mg PO DAILY [facility] Last Admin: 07/28/19 08:22 Dose: 100 mg Nicotine (Habitrol) 14 mg TRDERM DAILY [facility] Last Admin: 07/28/19 08:38 Dose: 14 mg Oxycodone HCl (Oxycodone) 5 mg PO Q4H PRN PRN Reason: Pain (moderate 4-6) Last Admin: 07/28/19 06:31 Dose: 5 mg Pantoprazole Sodium (Protonix) 40 mg PO DAILY [facility] Last Admin: 07/28/19 08:20 Dose: 40 mg Pregabalin (Lyrica) 150 mg PO 0700,1200,1700,2200 [facility] Last Admin: 07/28/19 06:29 Dose: 150 mg Quetiapine Fumarate (Seroquel) 50 mg PO BEDTIME [facility] Last Admin: 07/27/19 20:05 Dose: 50 mg Sodium Chloride (Saline Flush) 10 ml FLUSH ASDIRECTED PRN PRN Reason: Keep Vein Open Sodium Chloride (Saline Flush) 2.5 ml FLUSH ASDIRECTED PRN PRN Reason: Keep Vein Open Temazepam (Restoril) 15 mg PO BEDTIME PRN PRN Reason: Sleep Trazodone HCl (Trazodone) 100 mg PO BEDTIME [facility] Last Admin: 07/27/19 20:05 Dose: 100 mg Discontinued Medications Diltiazem HCl (Diltiazem) 20 mg IVPUSH ONETIME ONE Stop: 07/27/19 12:23 Last Admin: 07/27/19 12:38 Dose: 20 mg Diltiazem HCl (Diltiazem) 20 mg IVPUSH ONETIME ONE Stop: 07/27/19 12:38 Last Admin: 07/27/19 12:43 Dose: 20 mg Diltiazem HCl (Diltiazem) 5 mg IVPUSH ONETIME ONE Stop: 07/27/19 17:33 Last Admin: 07/27/19 21:37 Dose: Not Given Sodium Chloride (Normal Saline) 1,000 mls @ 125 mls/hr IV STAT ONE Stop: 07/27/19 20:23 Last Admin: 07/27/19 12:42 Dose: 125 mls/hr Diltiazem HCl 125 mg/ Sodium (Chloride) 125 mls @ 7 mls/hr IV NOW [facility]; Protocol Lorazepam (Ativan) 1 mg IVPUSH ONETIME ONE Stop: 07/27/19 13:24 Last Admin: 07/27/19 13:29 Dose: 1 mg Morphine Sulfate (Morphine) 4 mg IVPUSH ONETIME ONE Stop: 07/27/19 12:52 Last Admin: 07/27/19 12:56 Dose: 4 mg Sodium Chloride (Saline Flush) 10 ml FLUSH ASDIRECTED PRN PRN Reason: Keep Vein Open Sodium Chloride (Saline Flush) 2.5 ml FLUSH ASDIRECTED PRN PRN Reason: Keep Vein Open - Exam Quality Assessment: Reports: Supplemental Oxygen General: Reports: Alert, Oriented, Cooperative, Other (Sonorous respirations, likely obstructive sleep apnea. The patient rouses easily.) HEENT: Reports: Pupils Equal, Pupils Reactive, EOMI, Mucous Membr. Moist/Patriot Neck: Reports: Supple, Trachea Midline Lungs: Reports: Clear to Auscultation, Normal Respiratory Effort Cardiovascular: Reports: No Murmurs, Irregular Rhythm, Tachycardia GI/Abdominal Exam: Normal Bowel Sounds, Soft, Non-Tender, No Distention Back Exam: Reports: Normal Inspection, Full Range of Motion Extremities: Normal Inspection, Normal Range of Motion, No Pedal Edema Skin: Reports: Warm, Dry, Intact Neurological: Reports: No New Focal Deficit, Normal Gait Psy/Mental Status: Reports: Alert, Normal Affect, Normal Mood *Q Meaningful Use (DIS) - VTE *Q VTE Pharmacological Contraindications *Q: Risk of Bleeding
[2019-07-28] MEDS: LORazepam 0.5 MG Tab PO PRN (11:35)
== END 2019-07-28 12:45 | DRG 310 ==
LOC: MW.ED 12:15 → MW.MS 13:38 → OBSVTOIN 15:37 → MW.ICU 16:53
PROVIDERS: ADMIT Internal Medicine; ATTEND Internal Medicine
DX: I48.91 Unspecified atrial fibrillation (principal); R07.9 Chest pain, unspecified; Z91.14 Patient's other noncompliance with medication regimen; R06.02 Shortness of breath; I48.92 Unspecified atrial flutter; E11.9 Type 2 diabetes mellitus without complications; G47.01 Insomnia due to medical condition; F17.210 Nicotine dependence, cigarettes, uncomplicated; E11.65 Type 2 diabetes mellitus with hyperglycemia; Z72.0 Tobacco use; F12.10 Cannabis abuse, uncomplicated; I25.10 Atherosclerotic heart disease of native coronary artery without angina pectoris; Z79.84 Long term (current) use of oral hypoglycemic drugs; I10 Essential (primary) hypertension; J44.9 Chronic obstructive pulmonary disease, unspecified; Z86.718 Personal history of other venous thrombosis and embolism; K21.9 Gastro-esophageal reflux disease without esophagitis; G89.29 Other chronic pain; M54.9 Dorsalgia, unspecified; F41.9 Anxiety disorder, unspecified; F32.9 Major depressive disorder, single episode, unspecified; Z79.4 Long term (current) use of insulin; Z79.01 Long term (current) use of anticoagulants; I25.2 Old myocardial infarction; Z86.73 Personal history of transient ischemic attack (TIA), and cerebral infarction without residual deficits; Z86.711 Personal history of pulmonary embolism; Z95.0 Presence of cardiac pacemaker; Z79.899 Other long term (current) drug therapy; Z98.890 Other specified postprocedural states
CPT/HCPCS: 71045; 80053; 80162; 84484; 85025; 85610; 93005; 96361; 96374 ×2; 96375; 99285; J2060; J2270; J3490 ×2; J7040; 36415; 73620-26-RT; 73620-RT; 82962; 99284; A9270-GY; J1815-GY; J7030

== ENCOUNTER 2019-07-31 17:44 | Observation (INO) | payer MEDICARE ==
[2019-07-31] MEDS ORDERED: Sodium Chloride 0.9% 10 ML Syringe FLUSH PRN (17:45)
[2019-07-31] MEDS ORDERED: Sodium Chloride 0.9% 2.5 ML Syringe FLUSH PRN (17:45)
[2019-07-31] MEDS ORDERED: Diltiazem 25 MG/5 ML SDV IVPUSH ONE (17:52)
--- NOTE | 2019-07-31 17:58 | EDM.PDOC ---
ED HPI GENERAL MEDICAL PROBLEM - General Chief Complaint: Chest Pain Stated Complaint: CHEST PAIN Time Seen by Provider: 07/31/19 17:52 Source of Information: Reports: Patient History Limitations: Reports: No Limitations - History of Present Illness INITIAL COMMENTS - FREE TEXT/NARRATIVE: HISTORY AND PHYSICAL: History of present illness: Patient is a 59-year-old male presents to the ED with complaint of chest pain. Past medical history of atrial fibrillation/flutter, AK, PE, CVA, chronic anticoagulation. He states chest pain started last night and was having some shortness of breath this morning. He has history of atrial fibrillation and flutter with multiple medical and electrical conversions. Patient was last admitted 07/27/19 and transferred to [facility], he states he was cardioverted there 2 days ago, was discharged yesterday. Patient currently in atrial flutter with RVR. Review of systems: As per history of present illness and below otherwise all systems reviewed and negative. Past medical history: As per history of present illness and as reviewed below otherwise noncontributory. Surgical history: As per history of present illness and as reviewed below otherwise noncontributory. Social history: No reported history of drug or alcohol abuse. Family history: As per history of present illness and as reviewed below otherwise noncontributory. Physical exam: General: Patient sitting comfortably in no acute distress and nontoxic appearing HEENT: Atraumatic, normocephalic, pupils reactive, negative for conjunctival pallor or scleral icterus, mucous membranes moist, throat clear, neck supple, nontender, trachea midline. No meningeal signs. Lungs: Clear to auscultation, breath sounds equal bilaterally, chest nontender. Heart: S1S2, regular, negative for clicks, rubs, or overt murmur. Abdomen: Soft, nondistended, nontender. Negative for masses or hepatosplenomegaly. Negative for costovertebral tenderness. No rigidity, rebound , guarding. Pelvis: Stable nontender. Genitourinary: Deferred. Rectal: Deferred. Extremities: Atraumatic, negative for cords or calf pain. Neurovascular unremarkable. Neuro: Awake, alert, oriented. Cranial nerves II through XII unremarkable. Cerebellum unremarkable. Motor and sensory unremarkable throughout. Exam nonfocal. Notes: Patient's rate improved to 80s with diltiazem. He is complaining of pain in his back, morphine given. Diagnostics: CBC, CMP, Troponin, INR, EKG, Chest x-ray, UA Therapeutics: 25mg Diltiazem IV 1L NS IV 2mg Morphine IV Prescriptions: Impression: Chest pain r/o ACS, atrial flutter with RVR Plan: Discussed with Dr. Romero, patient will be admitted for r/o ACS Definitive disposition and diagnosis as appropriate pending reevaluation and review of above. chest pain Pain Score (Numeric/FACES): 5 - Related Data Allergies Allergy/AdvReac Type Severity Reaction Status Date / Time bee venom protein (honey bee) Allergy Anaphylactic Verified 07/31/19 18:10 Shock Home Meds: Home Meds Apixaban [Eliquis] 5 mg PO BID 04/20/19 [History] DULoxetine HCl [Duloxetine HCl] 1 tab PO DAILY 04/20/19 [History] Insulin Detemir [Levemir Flextouch] 16 units SQ BEDTIME 04/20/19 [History] Pantoprazole Sodium 40 mg PO DAILY 04/20/19 [History] Pregabalin [Lyrica] 150 mg PO QID 04/20/19 [History] metFORMIN [Glucophage] 2 tab PO BID 04/20/19 [History] traZODone HCl [Trazodone HCl] 100 mg PO BEDTIME 04/20/19 [History] Amiodarone [Cordarone] 200 mg PO DAILY #30 tablet 04/24/19 [Rx] Digoxin 125 mcg PO DAILY #30 tablet 04/24/19 [Rx] Diltiazem [Cardizem CD] 120 mg PO DAILY 07/22/19 [History] Metoprolol Succinate 100 mg PO DAILY 07/22/19 [History] QUEtiapine [SEROquel] 50 mg PO BEDTIME 07/22/19 [History] Past Medical History HEENT History: Reports: None Cardiovascular History: Reports: Arrhythmia, Blood Clots/VTE/DVT, CAD, Hypertension Respiratory History: Reports: COPD Gastrointestinal History: Reports: Bowel Obstruction, GERD, Other (See Below) Other Gastrointestinal History: Intestinal rupture Genitourinary History: Reports: None Musculoskeletal History: Reports: Back Pain, Chronic, Fracture Neurological History: Reports: CVA Other Neuro History: 3 strokes in the last 1.5 years Psychiatric History: Reports: Anxiety, Depression Endocrine/Metabolic History: Reports: Diabetes, Type II Hematologic History: Reports: None Immunologic History: Reports: None Oncologic (Cancer) History: Reports: None Dermatologic History: Reports: None - Infectious Disease History Infectious Disease History: Reports: Chicken Pox - Past Surgical History Cardiovascular Surgical History: Reports: Other (See Below) Other Cardiovascular Surgeries/Procedures: Cardioversion GI Surgical History: Reports: Colonoscopy, Small Bowel Musculoskeletal Surgical History: Reports: Other (See Below) Other Musculoskeletal Surgeries/Procedures:: 6 back surgeries, 2 neck surgeries , titanium plate in neck, titanium plate in lower back Social & Family History - Family History Family Medical History: Noncontributory - Caffeine Use Caffeine Use: Reports: Coffee - Living Situation & Occupation Living situation: Reports: with Family Occupation: Retired ED ROS GENERAL - Review of Systems Review Of Systems: ROS reveals no pertinent complaints other than HPI. ED EXAM, GENERAL - Physical Exam Exam: See Below (see dictation) Course - Vital Signs Last Recorded V/S: Last Vital Signs Temp 98.3 F 07/31/19 17:51 Pulse 86 07/31/19 19:16 Resp 18 07/31/19 19:16 BP 114/70 07/31/19 19:16 Pulse Ox 94 L 07/31/19 19:16 - Orders/Labs/Meds Orders: Active Orders 24 hr Category Date Time Status Cardiac Monitoring [RC] . DIRECTED Care 07/31/19 17:45 Active EKG Documentation Completion [RC] STAT Care 07/31/19 17:45 Active UA W/MICROSCOPIC [URIN] Stat Lab 07/31/19 19:47 Results Sodium Chloride 0.9% [Saline Flush] Med 07/31/19 17:45 Active 10 ml FLUSH ASDIRECTED PRN Sodium Chloride 0.9% [Saline Flush] Med 07/31/19 17:45 Active 2.5 ml FLUSH ASDIRECTED PRN Saline Lock Insert [OM.PC] Stat Oth 07/31/19 17:45 Ordered Medication Orders Sodium Chloride (Saline Flush) 10 ml FLUSH ASDIRECTED PRN PRN Reason: Keep Vein Open Sodium Chloride (Saline Flush) 2.5 ml FLUSH ASDIRECTED PRN PRN Reason: Keep Vein Open Labs: Laboratory Tests 07/31/19 07/31/19 07/31/19 Range/Units 18:35 18:35 18:35 WBC 15.15 H (4.0-11.0) K/uL RBC 5.22 (4.50-5.90) M/uL Hgb 16.6 (13.0-17.0) g/dL Hct 50.0 (38.0-50.0) % MCV 95.8 (80.0-98.0) fL MCH 31.8 (27.0-32.0) pg MCHC 33.2 (31.0-37.0) g/dL RDW Std Deviation 52.1 (28.0-62.0) fl RDW Coeff of Dennis 15 (11.0-15.0) % Plt Count 314 (150-400) K/uL MPV 11.10 (7.40-12.00) fL Neut % (Auto) 62.2 (48.0-80.0) % Lymph % (Auto) 28.4 (16.0-40.0) % Coke % (Auto) 7.4 (0.0-15.0) % Eos % (Auto) 1.6 (0.0-7.0) % Baso % (Auto) 0.4 (0.0-1.5) % Neut # (Auto) 9.4 H (1.4-5.7) K/uL Lymph # (Auto) 4.3 H (0.6-2.4) K/uL Coke # (Auto) 1.1 H (0.0-0.8) K/uL Eos # (Auto) 0.2 (0.0-0.7) K/uL Baso # (Auto) 0.1 (0.0-0.1) K/uL Nucleated RBC % 0.0 /100WBC Nucleated RBCs # 0 K/uL INR 1.01 Sodium 138 (136-148) mmol/L Potassium 4.7 (3.5-5.1) mmol/L Chloride 102 (98-107) mmol/L Carbon Dioxide 25.2 (21.0-32.0) mmol/L BUN 19 H (7.0-18.0) mg/dL Creatinine 0.9 (0.8-1.3) mg/dL Est Cr Clr Drug Dosing 97.41 mL/min Estimated GFR (MDRD) > 60.0 ml/min Glucose 104 (74-106) mg/dL Calcium 9.0 (8.5-10.1) mg/dL Total Bilirubin 0.5 (0.2-1.0) mg/dL AST 23 (15-37) IU/L ALT 36 (14-63) IU/L Alkaline Phosphatase 111 (46-116) U/L Troponin I < 0.050 (0.000-0.056) ng/mL B-Natriuretic Peptide (<100) PG/ML Total Protein 7.2 (6.4-8.2) g/dL Albumin 3.5 (3.4-5.0) g/dL Globulin 3.7 (2.6-4.0) g/dL Albumin/Globulin Ratio 0.9 (0.9-1.6) Urine Color Urine Appearance Urine pH (5.0-8.0) Ur Specific [place] (1.001-1.035) Urine Protein (NEGATIVE) mg/dL Urine Glucose (UA) (NEGATIVE) mg/dL Urine Ketones (NEGATIVE) mg/dL Urine Occult Blood (NEGATIVE) Urine Nitrite (NEGATIVE) Urine Bilirubin (NEGATIVE) Urine Urobilinogen (<2.0) EU/dL Ur Leukocyte Esterase (NEGATIVE) 07/31/19 07/31/19 Range/Units 18:35 19:47 WBC (4.0-11.0) K/uL RBC (4.50-5.90) M/uL Hgb (13.0-17.0) g/dL Hct (38.0-50.0) % MCV (80.0-98.0) fL MCH (27.0-32.0) pg MCHC (31.0-37.0) g/dL RDW Std Deviation (28.0-62.0) fl RDW Coeff of Dennis (11.0-15.0) % Plt Count (150-400) K/uL MPV (7.40-12.00) fL Neut % (Auto) (48.0-80.0) % Lymph % (Auto) (16.0-40.0) % Coke % (Auto) (0.0-15.0) % Eos % (Auto) (0.0-7.0) % Baso % (Auto) (0.0-1.5) % Neut # (Auto) (1.4-5.7) K/uL Lymph # (Auto) (0.6-2.4) K/uL Coke # (Auto) (0.0-0.8) K/uL Eos # (Auto) (0.0-0.7) K/uL Baso # (Auto) (0.0-0.1) K/uL Nucleated RBC % /100WBC Nucleated RBCs # K/uL INR Sodium (136-148) mmol/L Potassium (3.5-5.1) mmol/L Chloride (98-107) mmol/L Carbon Dioxide (21.0-32.0) mmol/L BUN (7.0-18.0) mg/dL Creatinine (0.8-1.3) mg/dL Est Cr Clr Drug Dosing mL/min Estimated GFR (MDRD) ml/min Glucose (74-106) mg/dL Calcium (8.5-10.1) mg/dL Total Bilirubin (0.2-1.0) mg/dL AST (15-37) IU/L ALT (14-63) IU/L Alkaline Phosphatase (46-116) U/L Troponin I (0.000-0.056) ng/mL B-Natriuretic Peptide 117 H (<100) PG/ML Total Protein (6.4-8.2) g/dL Albumin (3.4-5.0) g/dL Globulin (2.6-4.0) g/dL Albumin/Globulin Ratio (0.9-1.6) Urine Color YELLOW Urine Appearance CLEAR Urine pH 6.0 (5.0-8.0) Ur Specific [place] 1.020 (1.001-1.035) Urine Protein 100 H (NEGATIVE) mg/dL Urine Glucose (UA) NEGATIVE (NEGATIVE) mg/dL Urine Ketones NEGATIVE (NEGATIVE) mg/dL Urine Occult Blood NEGATIVE (NEGATIVE) Urine Nitrite NEGATIVE (NEGATIVE) Urine Bilirubin NEGATIVE (NEGATIVE) Urine Urobilinogen 1.0 (<2.0) EU/dL Ur Leukocyte Esterase NEGATIVE (NEGATIVE) Meds: Medications Generic Name Dose Route Start Last Admin Trade Name Freq PRN Reason Stop Dose Admin Sodium Chloride 10 ml 07/31/19 17:45 Saline Flush FLUSH ASDIRECTED PRN Keep Vein Open Sodium Chloride 2.5 ml 07/31/19 17:45 Saline Flush FLUSH ASDIRECTED PRN Keep Vein Open Discontinued Medications Generic Name Dose Route Start Last Admin Trade Name Freq PRN Reason Stop Dose Admin Diltiazem HCl 25 mg 07/31/19 17:52 07/31/19 18:49 Diltiazem IVPUSH 07/31/19 17:53 25 mg ONETIME ONE Administration Morphine Sulfate 2 mg 07/31/19 18:56 07/31/19 19:02 Morphine IVPUSH 07/31/19 18:57 2 mg ONETIME ONE Administration Morphine Sulfate 2 mg 07/31/19 18:56 07/31/19 18:57 Morphine IVPUSH 07/31/19 18:57 Not Given ONETIME ONE Departure - Departure Time of Disposition: 20:08 Disposition: Refer to Observation Condition: Good Clinical Impression: Chest pain, Atrial flutter with rapid ventricular response Referrals: PCP,None [Primary Care Provider] - Forms: ED Department Discharge - My Orders Last 24 Hours: My Active Orders 07/31/19 17:45 Cardiac Monitoring [RC] . DIRECTED EKG Documentation Completion [RC] STAT Sodium Chloride 0.9% [Saline Flush] 10 ml FLUSH ASDIRECTED PRN Sodium Chloride 0.9% [Saline Flush] 2.5 ml FLUSH ASDIRECTED PRN Saline Lock Insert [OM.PC] Stat 07/31/19 19:47 UA W/MICROSCOPIC [URIN] Stat - Assessment/Plan Last 24 Hours: My Active Orders 07/31/19 17:45 Cardiac Monitoring [RC] . DIRECTED EKG Documentation Completion [RC] STAT Sodium Chloride 0.9% [Saline Flush] 10 ml FLUSH ASDIRECTED PRN Sodium Chloride 0.9% [Saline Flush] 2.5 ml FLUSH ASDIRECTED PRN Saline Lock Insert [OM.PC] Stat 07/31/19 19:47 UA W/MICROSCOPIC [URIN] Stat
--- NOTE | 2019-07-31 18:46 | PCM.SN ---
- Free Text/Narrative Note: Called by the [employer] as they have been unable to obtain PIV access. The patient is a previous IV drug user and has been multiple times in the last week for his cardiac issues. On exam he has multiple IV start sites and bruising on his arms from all the IV starts this week. Lt EJ was identified on ultrasound. 20g IV catheter was introduced into the Lt EJ. 10mL of blood was obtained for lab studies, catheter was secured with tape and tegaderm. Flushes with ease. Pt tolerated placement well.
[2019-07-31] MEDS ORDERED: Morphine 2 MG/ML Syringe IVPUSH ONE ×2 (18:56)
--- NOTE | 2019-07-31 19:09 | CR ---
HISTORY: Chest pain COMPARISON: 07/27/2019 FINDINGS: A portable erect AP view of the chest was obtained at 1847 hours. The lungs remain clear. No focal or diffuse infiltrates are present. The heart remains normal in size. The mediastinum is normal in appearance. Again seen is a metallic plate from anterior cervical fusion. The previously seen external pacemaker leads have been removed. IMPRESSION: No active disease seen in the chest. Dictated by Alessio Whittaker MD @ Jul 31 2019 7:05PM Signed by Dr. Alessio Whittaker @ Jul 31 2019 7:06PM
[2019-07-31 19:18] LABS: BLOOD UREA NITROGEN,BUN 19 mg/dL (7.0-18.0); CARBON DIOXIDE,CO2 25.2 mmol/L (21.0-32.0); CHLORIDE,CL 102 mmol/L (98-107); GLUCOSE RANDOM 104 mg/dL (74-106); POTASSIUM,K 4.7 mmol/L (3.5-5.1); SODIUM,NA 138 mmol/L (136-148)
--- NOTE | 2019-07-31 20:46 | PCM.HP.2 ---
H&P History of Present Illness - General Date of Service: 07/31/19 Admit Problem/Dx: Admission Diagnosis/Problem Admission Diagnosis/Problem Chest pain Source of Information: Patient - History of Present Illness Initial Comments - Free Text/Narative: Patient is a 59-year-old male presents to the ED with complaint of chest pain. Patient has extensive PMH of atrial fibrillation/flutter, CA, PE, CVA, chronic anticoagulation. According to patient chest pain started last night associated with mild shortness of breath. Patient underwebt multiple medical and electrical conversions for atrial fibrillation and flutter. Patient was recently admitted on 07/27/19 and transferred to [facility], per patient he was cardioverted there 2 days ago, was discharged yesterday. Patient was in atrial flutter with RVR received Cardizem which improved his HR. Patient is being admitted for further management. Medications in ER Generic Name Dose Route Start Last Admin Trade Name Freq PRN Reason Stop Dose Admin Sodium Chloride 10 ml 07/31/19 17:45 Saline Flush FLUSH ASDIRECTED PRN Keep Vein Open Sodium Chloride 2.5 ml 07/31/19 17:45 Saline Flush FLUSH ASDIRECTED PRN Keep Vein Open Discontinued Medications Generic Name Dose Route Start Last Admin Trade Name Freq PRN Reason Stop Dose Admin Diltiazem HCl 25 mg 07/31/19 17:52 07/31/19 18:49 Diltiazem IVPUSH 07/31/19 17:53 25 mg ONETIME ONE Administration Morphine Sulfate 2 mg 07/31/19 18:56 07/31/19 19:02 Morphine IVPUSH 07/31/19 18:57 2 mg ONETIME ONE Administration Morphine Sulfate 2 mg 07/31/19 18:56 07/31/19 18:57 Morphine IVPUSH 07/31/19 18:57 Not Given ONETIME ONE Onset of Symptoms: Reports: Today Duration of Symptoms: Reports: Day(s):, Getting Worse Location: Reports: Chest, Back Quality: Reports: Same as Previous Episode, Sharp Severity: Moderate Improves with: Reports: None Worsens with: Reports: None Associated Symptoms: Reports: Chest Pain, Shortness of Breath. Denies: Confusion, Cough, cough w sputum, Diaphoresis, Fever/Chills, Headaches, Loss of Appetite, Malaise, Nausea/Vomiting, Seizure chest pain Pain Score (Numeric/FACES): 5 - Related Data Allergies/Adverse Reactions: Allergies Allergy/AdvReac Type Severity Reaction Status Date / Time bee venom protein (honey bee) Allergy Anaphylactic Verified 07/31/19 21:26 Shock Home Medications: Home Meds Apixaban [Eliquis] 5 mg PO BID 04/20/19 [History] DULoxetine HCl [Duloxetine HCl] 1 tab PO DAILY 04/20/19 [History] Insulin Detemir [Levemir Flextouch] 16 units SQ BEDTIME 04/20/19 [History] Pantoprazole Sodium 40 mg PO DAILY 04/20/19 [History] Pregabalin [Lyrica] 150 mg PO QID 04/20/19 [History] metFORMIN [Glucophage] 2 tab PO BID 04/20/19 [History] traZODone HCl [Trazodone HCl] 100 mg PO BEDTIME 04/20/19 [History] Amiodarone [Cordarone] 200 mg PO DAILY #30 tablet 04/24/19 [Rx] Digoxin 125 mcg PO DAILY #30 tablet 04/24/19 [Rx] Metoprolol Succinate 100 mg PO DAILY 07/22/19 [History] QUEtiapine [SEROquel] 50 mg PO BEDTIME 07/22/19 [History] Diltiazem HCl [Diltiazem ER] 120 mg PO DAILY #30 cap.er.12h 08/01/19 [Rx] Furosemide [Lasix] 40 mg PO DAILY #30 tab 08/01/19 [Rx] Past Medical History HEENT History: Reports: None Cardiovascular History: Reports: Arrhythmia, Blood Clots/VTE/DVT, CAD, Hypertension Respiratory History: Reports: COPD Gastrointestinal History: Reports: Bowel Obstruction, GERD, Other (See Below) Other Gastrointestinal History: Intestinal rupture Genitourinary History: Reports: None Musculoskeletal History: Reports: Back Pain, Chronic, Fracture Neurological History: Reports: CVA Other Neuro History: 3 strokes in the last 1.5 years Psychiatric History: Reports: Anxiety, Depression Endocrine/Metabolic History: Reports: Diabetes, Type II Hematologic History: Reports: None Immunologic History: Reports: None Oncologic (Cancer) History: Reports: None Dermatologic History: Reports: None - Infectious Disease History Infectious Disease History: Reports: Chicken Pox - Past Surgical History Cardiovascular Surgical History: Reports: Other (See Below) Other Cardiovascular Surgeries/Procedures: Cardioversion GI Surgical History: Reports: Colonoscopy, Small Bowel Musculoskeletal Surgical History: Reports: Other (See Below) Other Musculoskeletal Surgeries/Procedures:: 6 back surgeries, 2 neck surgeries , titanium plate in neck, titanium plate in lower back Social & Family History - Family History Family Medical History: Noncontributory - Tobacco Use Smoking Status *Q: Current Every Day Smoker Years of Tobacco use: 50 Packs/Tins Daily: 0.5 - Caffeine Use Caffeine Use: Reports: Coffee - Recreational Drug Use Recreational Drug Use: No - Living Situation & Occupation Living situation: Reports: with Family Occupation: Retired H&P Review of Systems - Review of Systems: Review Of Systems: See Below General: Denies: Fever, Chills, Night Sweats, Diaphoresis HEENT: Denies: Contact Lenses, Dysphasia, Hearing Changes Pulmonary: Reports: Shortness of Breath. Denies: Wheezing, Pleuritic Chest Pain , Cough, Sputum Cardiovascular: Reports: Chest Pain, Dyspnea on Exertion. Denies: Orthopnea, Syncope, Claudication Gastrointestinal: Denies: Abdominal Pain, Anorexia, Constipation, Diarrhea, Decreased Appetite Genitourinary: Denies: Dysuria, Frequency, Burning Musculoskeletal: Reports: Neck Pain, Back Pain. Denies: Leg Pain, Foot Pain Skin: Denies: Cyanosis, Jaundice Psychiatric: Denies: Confusion, Anxiety, Hallucinations Hematologic/Lymphatic: Reports: No Symptoms. Denies: Swollen Glands Immunologic: Denies: Anaphylaxis Exam - Exam Exam: See Below - Vital Signs Vital Signs: Last Vital Signs Temp 36.8 C 07/31/19 17:51 Pulse 113 H 07/31/19 20:39 Resp 18 07/31/19 20:39 BP 111/85 07/31/19 20:39 Pulse Ox 97 07/31/19 20:39 Weight: 230 lb - Exam Quality Assessment: Supplemental Oxygen General: Alert, Oriented HEENT: Conjunctiva Clear, Mucosa Moist & [place] Neck: Supple, Trachea Midline Lungs: Clear to Auscultation, Normal Respiratory Effort Cardiovascular: Regular Rate, Irregular Rhythm GI/Abdominal Exam: Normal Bowel Sounds, Soft Back Exam: Normal Inspection, Vertebral Tenderness (cervical) Extremities: Normal Inspection Peripheral Pulses: 3+: Dorsalis Pedis (L), Dorsalis Pedis (R) Skin: Warm, Dry - Patient Data Lab Results Last 24 hrs: Laboratory Results - last 24 hr 10/10/19 10/10/19 10/10/19 Range/Units 18:35 18:35 18:35 WBC 15.15 H (4.0-11.0) K/uL RBC 5.22 (4.50-5.90) M/uL Hgb 16.6 (13.0-17.0) g/dL Hct 50.0 (38.0-50.0) % MCV 95.8 (80.0-98.0) fL MCH 31.8 (27.0-32.0) pg MCHC 33.2 (31.0-37.0) g/dL RDW Std Deviation 52.1 (28.0-62.0) fl RDW Coeff of Dennis 15 (11.0-15.0) % Plt Count 314 (150-400) K/uL MPV 11.10 (7.40-12.00) fL Neut % (Auto) 62.2 (48.0-80.0) % Lymph % (Auto) 28.4 (16.0-40.0) % [place] % (Auto) 7.4 (0.0-15.0) % Eos % (Auto) 1.6 (0.0-7.0) % Baso % (Auto) 0.4 (0.0-1.5) % Neut # (Auto) 9.4 H (1.4-5.7) K/uL Lymph # (Auto) 4.3 H (0.6-2.4) K/uL [facility] # (Auto) 1.1 H (0.0-0.8) K/uL Eos # (Auto) 0.2 (0.0-0.7) K/uL Baso # (Auto) 0.1 (0.0-0.1) K/uL Nucleated RBC % 0.0 /100WBC Nucleated RBCs # 0 K/uL INR 1.01 Sodium 138 (136-148) mmol/L Potassium 4.7 (3.5-5.1) mmol/L Chloride 102 (98-107) mmol/L Carbon Dioxide 25.2 (21.0-32.0) mmol/L BUN 19 H (7.0-18.0) mg/dL Creatinine 0.9 (0.8-1.3) mg/dL Est Cr Clr Drug Dosing 97.41 mL/min Estimated GFR (MDRD) > 60.0 ml/min Glucose 104 (74-106) mg/dL Calcium 9.0 (8.5-10.1) mg/dL Total Bilirubin 0.5 (0.2-1.0) mg/dL AST 23 (15-37) IU/L ALT 36 (14-63) IU/L Alkaline Phosphatase 111 (46-116) U/L Troponin I < 0.050 (0.000-0.056) ng/mL B-Natriuretic Peptide (<100) PG/ML Total Protein 7.2 (6.4-8.2) g/dL Albumin 3.5 (3.4-5.0) g/dL Globulin 3.7 (2.6-4.0) g/dL Albumin/Globulin Ratio 0.9 (0.9-1.6) Urine Color Urine Appearance Urine pH (5.0-8.0) Ur Specific [place] (1.001-1.035) Urine Protein (NEGATIVE) mg/dL Urine Glucose (UA) (NEGATIVE) mg/dL Urine Ketones (NEGATIVE) mg/dL Urine Occult Blood (NEGATIVE) Urine Nitrite (NEGATIVE) Urine Bilirubin (NEGATIVE) Urine Urobilinogen (<2.0) EU/dL Ur Leukocyte Esterase (NEGATIVE) Urine RBC (0-2/HPF) Urine WBC (0-5/HPF) Ur Epithelial Cells (NONE-FEW) Urine Bacteria (NEGATIVE) Urine Mucus (NONE-MOD) 07/31/19 07/31/19 Range/Units 18:35 19:47 WBC (4.0-11.0) K/uL RBC (4.50-5.90) M/uL Hgb (13.0-17.0) g/dL Hct (38.0-50.0) % MCV (80.0-98.0) fL MCH (27.0-32.0) pg MCHC (31.0-37.0) g/dL RDW Std Deviation (28.0-62.0) fl RDW Coeff of Dennis (11.0-15.0) % Plt Count (150-400) K/uL MPV (7.40-12.00) fL Neut % (Auto) (48.0-80.0) % Lymph % (Auto) (16.0-40.0) % [facility] % (Auto) (0.0-15.0) % Eos % (Auto) (0.0-7.0) % Baso % (Auto) (0.0-1.5) % Neut # (Auto) (1.4-5.7) K/uL Lymph # (Auto) (0.6-2.4) K/uL [facility] # (Auto) (0.0-0.8) K/uL Eos # (Auto) (0.0-0.7) K/uL Baso # (Auto) (0.0-0.1) K/uL Nucleated RBC % /100WBC Nucleated RBCs # K/uL INR Sodium (136-148) mmol/L Potassium (3.5-5.1) mmol/L Chloride (98-107) mmol/L Carbon Dioxide (21.0-32.0) mmol/L BUN (7.0-18.0) mg/dL Creatinine (0.8-1.3) mg/dL Est Cr Clr Drug Dosing mL/min Estimated GFR (MDRD) ml/min Glucose (74-106) mg/dL Calcium (8.5-10.1) mg/dL Total Bilirubin (0.2-1.0) mg/dL AST (15-37) IU/L ALT (14-63) IU/L Alkaline Phosphatase (46-116) U/L Troponin I (0.000-0.056) ng/mL B-Natriuretic Peptide 117 H (<100) PG/ML Total Protein (6.4-8.2) g/dL Albumin (3.4-5.0) g/dL Globulin (2.6-4.0) g/dL Albumin/Globulin Ratio (0.9-1.6) Urine Color YELLOW Urine Appearance CLEAR Urine pH 6.0 (5.0-8.0) Ur Specific [place] 1.020 (1.001-1.035) Urine Protein 100 H (NEGATIVE) mg/dL Urine Glucose (UA) NEGATIVE (NEGATIVE) mg/dL Urine Ketones NEGATIVE (NEGATIVE) mg/dL Urine Occult Blood NEGATIVE (NEGATIVE) Urine Nitrite NEGATIVE (NEGATIVE) Urine Bilirubin NEGATIVE (NEGATIVE) Urine Urobilinogen 1.0 (<2.0) EU/dL Ur Leukocyte Esterase NEGATIVE (NEGATIVE) Urine RBC 0-1 (0-2/HPF) Urine WBC 0-2 (0-5/HPF) Ur Epithelial Cells OCCASIONAL (NONE-FEW) Urine Bacteria FEW (NEGATIVE) Urine Mucus LIGHT (NONE-MOD) Result Diagrams: 08/01/19 02:05 08/01/19 02:05 - Problem List (1) Atrial flutter with rapid ventricular response SNOMED Code(s): 7898013, 1224219 ICD Code: I48.92 - UNSPECIFIED ATRIAL FLUTTER Status: Acute Priority: High (2) Chest pain SNOMED Code(s): 88112406 ICD Code: R07.9 - CHEST PAIN, UNSPECIFIED Status: Acute (3) Chronic neck pain SNOMED Code(s): 5236055946174 ICD Code: M54.2 - CERVICALGIA; G89.29 - OTHER CHRONIC PAIN Status: Acute (4) Old cerebrovascular accident without late effect SNOMED Code(s): 405440152 ICD Code: Z86.73 - PRSNL HX OF TIA (TIA), AND CEREB INFRC W/O RESID DEFICITS Status: Acute (5) Tobacco abuse SNOMED Code(s): 776747648 ICD Code: Z72.0 - TOBACCO USE Status: Acute Problem List Initiated/Reviewed/Updated: Yes Orders Last 24hrs: Active Orders 24 hr Category Date Time Status Admission Status [Patient Status] [ADT] Stat ADT 07/31/19 20:19 Active Cardiac Monitoring [RC] . DIRECTED Care 07/31/19 17:45 Active EKG Documentation Completion [RC] STAT Care 07/31/19 17:45 Active Sodium Chloride 0.9% [Saline Flush] Med 07/31/19 17:45 Active 10 ml FLUSH ASDIRECTED PRN Sodium Chloride 0.9% [Saline Flush] Med 07/31/19 17:45 Active 2.5 ml FLUSH ASDIRECTED PRN Saline Lock Insert [OM.PC] Stat Oth 07/31/19 17:45 Ordered Medication Orders Sodium Chloride (Saline Flush) 10 ml FLUSH ASDIRECTED PRN PRN Reason: Keep Vein Open Sodium Chloride (Saline Flush) 2.5 ml FLUSH ASDIRECTED PRN PRN Reason: Keep Vein Open Assessment/Plan Comment:: patient comes in with c/o chest pain Trops negative, EKG showed aflutter with RVR Rate controlled with Diltiazem Recent cardioversion at [place] 2 days back Resume Diltiazem ( according to pt was discontinued in [place]) f/u on Troponin f/u on UDS cont Nasal canula for optimum oxygenation cont home meds Recent ECHO done last week, slightly decreased EF cardiac monitoring check and replete electrolytes cardiology consult for possible ablation
[2019-07-31] MEDS ORDERED: Insulin Detemir 100 Units/ML 3 ML Pen SUBCUT ONE (22:35)
[2019-07-31] MEDS ORDERED: Morphine 15 MG Tab.ER PO ONE (22:44)
[2019-07-31] MEDS ORDERED: Insulin Aspart 100 Units/ML 3 ML Pen SUBCUT SCH (23:11)
[2019-07-31] MEDS: Apixaban 5 MG Tab PO SCH (23:24)
[2019-07-31] MEDS ORDERED: traZODone 50 MG Tab PO SCH (23:30)
[2019-08-01 02:34] LABS: BLOOD UREA NITROGEN,BUN 19 mg/dL (7.0-18.0); CARBON DIOXIDE,CO2 28.4 mmol/L (21.0-32.0); CHLORIDE,CL 101 mmol/L (98-107); GLUCOSE RANDOM 177 mg/dL (74-106); POTASSIUM,K 4.3 mmol/L (3.5-5.1); SODIUM,NA 140 mmol/L (136-148)
[2019-08-01] MEDS ORDERED: Pantoprazole 40 MG Tab.CR PO SCH (07:30)
[2019-08-01] MEDS: Insulin Aspart 100 Units/ML 3 ML Pen SUBCUT SCH ×2 (07:31→12:30)
[2019-08-01] MEDS: Apixaban 5 MG Tab PO SCH (08:57)
[2019-08-01] MEDS ORDERED: Diltiazem 120 MG Cap.CD PO SCH (09:00)
[2019-08-01] MEDS ORDERED: DULoxetine 60 MG Cap PO SCH (09:00)
[2019-08-01] MEDS ORDERED: Pregabalin 75 MG Cap PO SCH (09:00)
[2019-08-01] MEDS ORDERED: Digoxin 125 MCG Tab PO SCH (09:00)
[2019-08-01] MEDS ORDERED: Nicotine 14 MG/24 Hr Patch TRDERM SCH (09:00)
[2019-08-01] MEDS ORDERED: Amiodarone 200 MG Tab PO SCH (09:00)
[2019-08-01] MEDS ORDERED: Metoprolol Succinate 100 MG Tab.ER PO SCH (09:00)
[2019-08-01] MEDS ORDERED: Magnesium Oxide 400 MG Tab PO ONE (10:24)
--- NOTE | 2019-08-01 11:44 | PCM.DCSUM1 ---
Discharge Summary - Hospital Course HPI Initial Comments: Patient is a 59-year-old male presents to the ED with complaint of chest pain. Patient has extensive PMH of atrial fibrillation/flutter, FL, PE, CVA, chronic anticoagulation. According to patient chest pain started last night associated with mild shortness of breath. Patient underwent multiple medical and electrical conversions for atrial fibrillation and flutter. Patient was recently admitted on 07/27/19 and transferred to [facility], per patient he was cardioverted there 2 days ago, was discharged yesterday. Patient was in atrial flutter with RVR received Cardizem which improved his HR. Patient was being admitted for further management. ACS was ruled out, trops negative, ECHO wasnt repeated as it was recently done. Cardizem was resumed.. Patient HR improved and was stable through out the night. Patient was discharged on Lasix in addition to her other home meds. Cardiology recommended OP f/u for possible ablation. Patient is medically stable for dc. Diagnosis: Stroke: No - Discharge Data Discharge Date: 08/01/19 Discharge Disposition: Home, Self-Care 01 Condition: Fair - Referral to Home Health Primary Care Physician: PCP None - Discharge Diagnosis/Problem(s) (1) Atrial flutter with rapid ventricular response SNOMED Code(s): 6469445, 4747401 ICD Code: I48.92 - UNSPECIFIED ATRIAL FLUTTER Status: Acute Priority: High Current Visit: Yes (2) Chest pain SNOMED Code(s): 13873989 ICD Code: R07.9 - CHEST PAIN, UNSPECIFIED Status: Acute Current Visit: Yes (3) Chronic neck pain SNOMED Code(s): 7567740571308 ICD Code: M54.2 - CERVICALGIA; G89.29 - OTHER CHRONIC PAIN Status: Acute Current Visit: No (4) Old cerebrovascular accident without late effect SNOMED Code(s): 186728279 ICD Code: Z86.73 - PRSNL HX OF TIA (TIA), AND CEREB INFRC W/O RESID DEFICITS Status: Acute Current Visit: No (5) Tobacco abuse SNOMED Code(s): 292196227 ICD Code: Z72.0 - TOBACCO USE Status: Acute Current Visit: No - Patient Summary/Data Consults: Consultations 07/31/19 23:08 Consult to Physician [CONS] Routine - Patient Instructions Diet: Heart Healthy Diet Activity: Rest and Relax Today Showering/Bathing: May Shower - Discharge Plan *PRESCRIPTION DRUG MONITORING PROGRAM REVIEWED*: No *COPY OF PRESCRIPTION DRUG MONITORING REPORT IN PATIENT ALEAH: No Prescriptions/Med Rec: Diltiazem HCl [Diltiazem ER] 120 mg PO DAILY #30 cap.er.12h Furosemide [Lasix] 40 mg PO DAILY #30 tab Home Medications: Home Meds Apixaban [Eliquis] 5 mg PO BID 04/20/19 [History] DULoxetine HCl [Duloxetine HCl] 1 tab PO DAILY 04/20/19 [History] Insulin Detemir [Levemir Flextouch] 16 units SQ BEDTIME 04/20/19 [History] Pantoprazole Sodium 40 mg PO DAILY 04/20/19 [History] Pregabalin [Lyrica] 150 mg PO QID 04/20/19 [History] metFORMIN [Glucophage] 2 tab PO BID 04/20/19 [History] traZODone HCl [Trazodone HCl] 100 mg PO BEDTIME 04/20/19 [History] Amiodarone [Cordarone] 200 mg PO DAILY #30 tablet 04/24/19 [Rx] Digoxin 125 mcg PO DAILY #30 tablet 04/24/19 [Rx] Metoprolol Succinate 100 mg PO DAILY 07/22/19 [History] QUEtiapine [SEROquel] 50 mg PO BEDTIME 07/22/19 [History] Diltiazem HCl [Diltiazem ER] 120 mg PO DAILY #30 cap.er.12h 08/01/19 [Rx] Furosemide [Lasix] 40 mg PO DAILY #30 tab 08/01/19 [Rx] Oxygen Therapy Mode: Room Air Patient Handouts: Diltiazem extended-release capsules or tablets, Furosemide tablets, Nonspecific Chest Pain, [id number] Referrals: Zuleika Thompson MD [Physician] - 08/12/19 9:00 am Siddharth Randolph MD [Physician] - 08/07/19 9:00 am - Discharge Summary/Plan Comment DC Time >30 min.: Yes Discharge Summary/Plan Comment: Patient is a 59-year-old male presents to the ED with complaint of chest pain. Patient has extensive PMH of atrial fibrillation/flutter, FL, PE, CVA, chronic anticoagulation. According to patient chest pain started last night associated with mild shortness of breath. Patient underwent multiple medical and electrical conversions for atrial fibrillation and flutter. Patient was recently admitted on 07/27/19 and transferred to [facility], per patient he was cardioverted there 2 days ago, was discharged yesterday. Patient was in atrial flutter with RVR received Cardizem which improved his HR. Patient was being admitted for further management. ACS was ruled out, trops negative, ECHO wasnt repeated as it was recently done. Patient HR improved and was stable through out the night. Patient was discharged on Lasix in addition to her other home meds and Cardizem was resumed. Cardiology recommended OP f/u for possible ablation. Patient is medically stable for dc. - Patient Data Vitals - Most Recent: Last Vital Signs Temp 36.8 C 08/01/19 08:48 Pulse 83 08/01/19 08:57 Resp 18 08/01/19 08:48 BP 142/97 H 08/01/19 08:57 Pulse Ox 90 L 08/01/19 08:48 Weight - Most Recent: 230 lb I&O - Last 24 hours: Intake & Output 07/31/19 08/01/19 08/01/19 22:59 06:59 14:59 Intake Total 480 Output Total 0 Balance 480 Lab Results - Last 24 hrs: Laboratory Results - last 24 hr 07/31/19 07/31/19 07/31/19 Range/Units 18:35 18:35 18:35 WBC 15.15 H (4.0-11.0) K/uL RBC 5.22 (4.50-5.90) M/uL Hgb 16.6 (13.0-17.0) g/dL Hct 50.0 (38.0-50.0) % MCV 95.8 (80.0-98.0) fL MCH 31.8 (27.0-32.0) pg MCHC 33.2 (31.0-37.0) g/dL RDW Std Deviation 52.1 (28.0-62.0) fl RDW Coeff of [place] 15 (11.0-15.0) % Plt Count 314 (150-400) K/uL MPV 11.10 (7.40-12.00) fL Neut % (Auto) 62.2 (48.0-80.0) % Lymph % (Auto) 28.4 (16.0-40.0) % [place] % (Auto) 7.4 (0.0-15.0) % Eos % (Auto) 1.6 (0.0-7.0) % Baso % (Auto) 0.4 (0.0-1.5) % Neut # (Auto) 9.4 H (1.4-5.7) K/uL Lymph # (Auto) 4.3 H (0.6-2.4) K/uL [place] # (Auto) 1.1 H (0.0-0.8) K/uL Eos # (Auto) 0.2 (0.0-0.7) K/uL Baso # (Auto) 0.1 (0.0-0.1) K/uL Nucleated RBC % 0.0 /100WBC Nucleated RBCs # 0 K/uL INR 1.01 Sodium 138 (136-148) mmol/L Potassium 4.7 (3.5-5.1) mmol/L Chloride 102 (98-107) mmol/L Carbon Dioxide 25.2 (21.0-32.0) mmol/L BUN 19 H (7.0-18.0) mg/dL Creatinine 0.9 (0.8-1.3) mg/dL Est Cr Clr Drug Dosing 97.41 mL/min Estimated GFR (MDRD) > 60.0 ml/min Glucose 104 (74-106) mg/dL POC Glucose (60-110) mg/dL Calcium 9.0 (8.5-10.1) mg/dL Phosphorus (2.6-4.7) mg/dL Magnesium (1.8-2.4) mg/dL Total Bilirubin 0.5 (0.2-1.0) mg/dL AST 23 (15-37) IU/L ALT 36 (14-63) IU/L Alkaline Phosphatase 111 (46-116) U/L Troponin I < 0.050 (0.000-0.056) ng/mL B-Natriuretic Peptide (<100) PG/ML Total Protein 7.2 (6.4-8.2) g/dL Albumin 3.5 (3.4-5.0) g/dL Globulin 3.7 (2.6-4.0) g/dL Albumin/Globulin Ratio 0.9 (0.9-1.6) Urine Color Urine Appearance Urine pH (5.0-8.0) Ur Specific [place] (1.001-1.035) Urine Protein (NEGATIVE) mg/dL Urine Glucose (UA) (NEGATIVE) mg/dL Urine Ketones (NEGATIVE) mg/dL Urine Occult Blood (NEGATIVE) Urine Nitrite (NEGATIVE) Urine Bilirubin (NEGATIVE) Urine Urobilinogen (<2.0) EU/dL Ur Leukocyte Esterase (NEGATIVE) Urine RBC (0-2/HPF) Urine WBC (0-5/HPF) Ur Epithelial Cells (NONE-FEW) Urine Bacteria (NEGATIVE) Urine Mucus (NONE-MOD) 07/31/19 07/31/19 07/31/19 Range/Units 18:35 19:47 22:40 WBC (4.0-11.0) K/uL RBC (4.50-5.90) M/uL Hgb (13.0-17.0) g/dL Hct (38.0-50.0) % MCV (80.0-98.0) fL MCH (27.0-32.0) pg MCHC (31.0-37.0) g/dL RDW Std Deviation (28.0-62.0) fl RDW Coeff of [place] (11.0-15.0) % Plt Count (150-400) K/uL MPV (7.40-12.00) fL Neut % (Auto) (48.0-80.0) % Lymph % (Auto) (16.0-40.0) % [place] % (Auto) (0.0-15.0) % Eos % (Auto) (0.0-7.0) % Baso % (Auto) (0.0-1.5) % Neut # (Auto) (1.4-5.7) K/uL Lymph # (Auto) (0.6-2.4) K/uL [place] # (Auto) (0.0-0.8) K/uL Eos # (Auto) (0.0-0.7) K/uL Baso # (Auto) (0.0-0.1) K/uL Nucleated RBC % /100WBC Nucleated RBCs # K/uL INR Sodium (136-148) mmol/L Potassium (3.5-5.1) mmol/L Chloride (98-107) mmol/L Carbon Dioxide (21.0-32.0) mmol/L BUN (7.0-18.0) mg/dL Creatinine (0.8-1.3) mg/dL Est Cr Clr Drug Dosing mL/min Estimated GFR (MDRD) ml/min Glucose (74-106) mg/dL POC Glucose (60-110) mg/dL Calcium (8.5-10.1) mg/dL Phosphorus (2.6-4.7) mg/dL Magnesium (1.8-2.4) mg/dL Total Bilirubin (0.2-1.0) mg/dL AST (15-37) IU/L ALT (14-63) IU/L Alkaline Phosphatase (46-116) U/L Troponin I < 0.050 (0.000-0.056) ng/mL B-Natriuretic Peptide 117 H (<100) PG/ML Total Protein (6.4-8.2) g/dL Albumin (3.4-5.0) g/dL Globulin (2.6-4.0) g/dL Albumin/Globulin Ratio (0.9-1.6) Urine Color YELLOW Urine Appearance CLEAR Urine pH 6.0 (5.0-8.0) Ur Specific [place] 1.020 (1.001-1.035) Urine Protein 100 H (NEGATIVE) mg/dL Urine Glucose (UA) NEGATIVE (NEGATIVE) mg/dL Urine Ketones NEGATIVE (NEGATIVE) mg/dL Urine Occult Blood NEGATIVE (NEGATIVE) Urine Nitrite NEGATIVE (NEGATIVE) Urine Bilirubin NEGATIVE (NEGATIVE) Urine Urobilinogen 1.0 (<2.0) EU/dL Ur Leukocyte Esterase NEGATIVE (NEGATIVE) Urine RBC 0-1 (0-2/HPF) Urine WBC 0-2 (0-5/HPF) Ur Epithelial Cells OCCASIONAL (NONE-FEW) Urine Bacteria FEW (NEGATIVE) Urine Mucus LIGHT (NONE-MOD) 07/31/19 08/01/19 08/01/19 Range/Units 23:23 02:05 02:05 WBC 15.63 H (4.0-11.0) K/uL RBC 5.07 (4.50-5.90) M/uL Hgb 15.6 (13.0-17.0) g/dL Hct 48.6 (38.0-50.0) % MCV 95.9 (80.0-98.0) fL MCH 30.8 (27.0-32.0) pg MCHC 32.1 (31.0-37.0) g/dL RDW Std Deviation 52.1 (28.0-62.0) fl RDW Coeff of [place] 15 (11.0-15.0) % Plt Count 298 (150-400) K/uL MPV 11.20 (7.40-12.00) fL Neut % (Auto) (48.0-80.0) % Lymph % (Auto) (16.0-40.0) % [place] % (Auto) (0.0-15.0) % Eos % (Auto) (0.0-7.0) % Baso % (Auto) (0.0-1.5) % Neut # (Auto) (1.4-5.7) K/uL Lymph # (Auto) (0.6-2.4) K/uL [place] # (Auto) (0.0-0.8) K/uL Eos # (Auto) (0.0-0.7) K/uL Baso # (Auto) (0.0-0.1) K/uL Nucleated RBC % 0.0 /100WBC Nucleated RBCs # 0 K/uL INR Sodium 140 (136-148) mmol/L Potassium 4.3 (3.5-5.1) mmol/L Chloride 101 (98-107) mmol/L Carbon Dioxide 28.4 (21.0-32.0) mmol/L BUN 19 H (7.0-18.0) mg/dL Creatinine 1.1 (0.8-1.3) mg/dL Est Cr Clr Drug Dosing 79.70 mL/min Estimated GFR (MDRD) > 60.0 ml/min Glucose 177 H (74-106) mg/dL POC Glucose 153 H (60-110) mg/dL Calcium 8.8 (8.5-10.1) mg/dL Phosphorus 3.4 (2.6-4.7) mg/dL Magnesium 1.6 L (1.8-2.4) mg/dL Total Bilirubin (0.2-1.0) mg/dL AST (15-37) IU/L ALT (14-63) IU/L Alkaline Phosphatase (46-116) U/L Troponin I (0.000-0.056) ng/mL B-Natriuretic Peptide (<100) PG/ML Total Protein (6.4-8.2) g/dL Albumin (3.4-5.0) g/dL Globulin (2.6-4.0) g/dL Albumin/Globulin Ratio (0.9-1.6) Urine Color Urine Appearance Urine pH (5.0-8.0) Ur Specific [place] (1.001-1.035) Urine Protein (NEGATIVE) mg/dL Urine Glucose (UA) (NEGATIVE) mg/dL Urine Ketones (NEGATIVE) mg/dL Urine Occult Blood (NEGATIVE) Urine Nitrite (NEGATIVE) Urine Bilirubin (NEGATIVE) Urine Urobilinogen (<2.0) EU/dL Ur Leukocyte Esterase (NEGATIVE) Urine RBC (0-2/HPF) Urine WBC (0-5/HPF) Ur Epithelial Cells (NONE-FEW) Urine Bacteria (NEGATIVE) Urine Mucus (NONE-MOD) 08/01/19 08/01/19 Range/Units 02:05 06:43 WBC (4.0-11.0) K/uL RBC (4.50-5.90) M/uL Hgb (13.0-17.0) g/dL Hct (38.0-50.0) % MCV (80.0-98.0) fL MCH (27.0-32.0) pg MCHC (31.0-37.0) g/dL RDW Std Deviation (28.0-62.0) fl RDW Coeff of [place] (11.0-15.0) % Plt Count (150-400) K/uL MPV (7.40-12.00) fL Neut % (Auto) (48.0-80.0) % Lymph % (Auto) (16.0-40.0) % [place] % (Auto) (0.0-15.0) % Eos % (Auto) (0.0-7.0) % Baso % (Auto) (0.0-1.5) % Neut # (Auto) (1.4-5.7) K/uL Lymph # (Auto) (0.6-2.4) K/uL [place] # (Auto) (0.0-0.8) K/uL Eos # (Auto) (0.0-0.7) K/uL Baso # (Auto) (0.0-0.1) K/uL Nucleated RBC % /100WBC Nucleated RBCs # K/uL INR Sodium (136-148) mmol/L Potassium (3.5-5.1) mmol/L Chloride (98-107) mmol/L Carbon Dioxide (21.0-32.0) mmol/L BUN (7.0-18.0) mg/dL Creatinine (0.8-1.3) mg/dL Est Cr Clr Drug Dosing mL/min Estimated GFR (MDRD) ml/min Glucose (74-106) mg/dL POC Glucose 118 H (60-110) mg/dL Calcium (8.5-10.1) mg/dL Phosphorus (2.6-4.7) mg/dL Magnesium (1.8-2.4) mg/dL Total Bilirubin (0.2-1.0) mg/dL AST (15-37) IU/L ALT (14-63) IU/L Alkaline Phosphatase (46-116) U/L Troponin I < 0.050 (0.000-0.056) ng/mL B-Natriuretic Peptide (<100) PG/ML Total Protein (6.4-8.2) g/dL Albumin (3.4-5.0) g/dL Globulin (2.6-4.0) g/dL Albumin/Globulin Ratio (0.9-1.6) Urine Color Urine Appearance Urine pH (5.0-8.0) Ur Specific [place] (1.001-1.035) Urine Protein (NEGATIVE) mg/dL Urine Glucose (UA) (NEGATIVE) mg/dL Urine Ketones (NEGATIVE) mg/dL Urine Occult Blood (NEGATIVE) Urine Nitrite (NEGATIVE) Urine Bilirubin (NEGATIVE) Urine Urobilinogen (<2.0) EU/dL Ur Leukocyte Esterase (NEGATIVE) Urine RBC (0-2/HPF) Urine WBC (0-5/HPF) Ur Epithelial Cells (NONE-FEW) Urine Bacteria (NEGATIVE) Urine Mucus (NONE-MOD) Med Orders - Current: Current Medications Amiodarone HCl (Cordarone) 200 mg PO DAILY [facility] Last Admin: 08/01/19 08:56 Dose: 200 mg Apixaban (Eliquis) 5 mg PO BID [facility] Last Admin: 08/01/19 08:57 Dose: 5 mg Digoxin (Lanoxin) 125 mcg PO DAILY [facility] Last Admin: 08/01/19 08:57 Dose: 125 mcg Diltiazem HCl (Cardizem Cd) 120 mg PO DAILY [facility] Last Admin: 08/01/19 08:57 Dose: 120 mg Duloxetine HCl (Cymbalta) 60 mg PO DAILY [facility] Last Admin: 08/01/19 08:57 Dose: 60 mg Insulin Aspart (Novolog) 0 unit SUBCUT QIDACANDBED [facility]; Protocol Last Admin: 08/01/19 07:31 Dose: Not Given Metoprolol Succinate (Toprol Xl) 100 mg PO DAILY [facility] Last Admin: 08/01/19 08:57 Dose: 100 mg Nicotine (Habitrol) 14 mg TRDERM DAILY [facility] Last Admin: 08/01/19 08:57 Dose: 14 mg Pantoprazole Sodium (Protonix) 40 mg PO ACBREAKFAST [facility] Last Admin: 08/01/19 07:31 Dose: 40 mg Pregabalin (Lyrica) 150 mg PO DAILY [facility] Last Admin: 08/01/19 08:57 Dose: 150 mg Quetiapine Fumarate (Seroquel) 50 mg PO BEDTIME [facility] Last Admin: 07/31/19 23:24 Dose: 50 mg Sodium Chloride (Saline Flush) 10 ml FLUSH ASDIRECTED PRN PRN Reason: Keep Vein Open Sodium Chloride (Saline Flush) 2.5 ml FLUSH ASDIRECTED PRN PRN Reason: Keep Vein Open Trazodone HCl (Trazodone) 100 mg PO BEDTIME [facility] Last Admin: 07/31/19 23:29 Dose: 100 mg Discontinued Medications Diltiazem HCl (Diltiazem) 25 mg IVPUSH ONETIME ONE Stop: 07/31/19 17:53 Last Admin: 07/31/19 18:49 Dose: 25 mg Insulin Aspart (Novolog) [facility]; Protocol Last Admin: 07/31/19 23:42 Dose: 1 unit Insulin Detemir (Levemir) 16 unit SUBCUT BEDTIME ONE Stop: 07/31/19 22:36 Last Admin: 07/31/19 23:27 Dose: 16 units Magnesium Oxide (Magnesium Oxide) 800 mg PO ONETIME ONE Stop: 08/01/19 10:25 Morphine Sulfate (Morphine) 2 mg IVPUSH ONETIME ONE Stop: 07/31/19 18:57 Last Admin: 07/31/19 19:02 Dose: 2 mg Morphine Sulfate (Morphine) 2 mg IVPUSH ONETIME ONE Stop: 07/31/19 18:57 Last Admin: 07/31/19 18:57 Dose: Not Given Morphine Sulfate (Ms Contin) 15 mg PO ONETIME ONE Stop: 07/31/19 22:45 Last Admin: 07/31/19 23:25 Dose: 15 mg Trazodone HCl (Trazodone Hcl) 100 mg PO BEDTIME [facility]
[2019-08-01] MEDS ORDERED: Acetaminophen/oxyCODONE 325-5 MG Tab PO ONE (13:32)
== END 2019-08-01 13:55 | disposition home or self-care (01) ==
LOC: MW.ED 17:44 → MW.MS 20:19 → UNDOADMOB 20:31
PROVIDERS: ADMIT Student in an Organized Health Care Education/Training Program; ATTEND Student in an Organized Health Care Education/Training Program
DX: I48.92 Unspecified atrial flutter (principal); M54.2 Cervicalgia; G89.29 Other chronic pain; J44.9 Chronic obstructive pulmonary disease, unspecified; K21.9 Gastro-esophageal reflux disease without esophagitis; E11.9 Type 2 diabetes mellitus without complications; F17.210 Nicotine dependence, cigarettes, uncomplicated; F41.9 Anxiety disorder, unspecified; F32.9 Major depressive disorder, single episode, unspecified; Z86.73 Personal history of transient ischemic attack (TIA), and cerebral infarction without residual deficits; Z79.01 Long term (current) use of anticoagulants; Z79.899 Other long term (current) drug therapy; Z79.4 Long term (current) use of insulin
CPT/HCPCS: 36415; 71045; 80048; 80053; 81001; 82962; 83735; 83880; 84100; 84484; 85025; 85027; 85610; 93005; 96374; 96375; 99285; A9270; G0378; J1815; J2270; J3490; 99284

== ENCOUNTER 2019-08-07 09:37 | Emergency (ER) | payer MEDICARE ==
[2019-08-07] MEDS ORDERED: Sodium Chloride 0.9% 2.5 ML Syringe FLUSH PRN (09:45)
[2019-08-07] MEDS ORDERED: Sodium Chloride 0.9% 10 ML Syringe FLUSH PRN (09:45)
[2019-08-07] MEDS ORDERED: Diltiazem 25 MG/5 ML SDV IVPUSH ONE (09:50)
--- NOTE | 2019-08-07 09:53 | EDM.PDOC ---
ED HPI GENERAL MEDICAL PROBLEM - General Chief Complaint: Chest Pain Stated Complaint: CHEST PAIN Time Seen by Provider: 08/07/19 09:43 - History of Present Illness INITIAL COMMENTS - FREE TEXT/NARRATIVE: HISTORY AND PHYSICAL: History of present illness: Patient is a 59-year-old white male with extensive past medical history including diabetes hypertension and atrial flutter he was hospitalized as recently as one week prior for a flutter with rapid ventricular response and presents today with palpitations and is found to be in a flutter with a ventricular response in the 120s. He denies chest pain shortness of breath nausea vomiting Review of systems: As per history of present illness and below otherwise all systems reviewed and negative. Past medical history: As per history of present illness and as reviewed below otherwise noncontributory. Surgical history: As per history of present illness and as reviewed below otherwise noncontributory. Social history: No reported history of drug or alcohol abuse. Family history: As per history of present illness and as reviewed below otherwise noncontributory. Physical exam: HEENT: Atraumatic, normocephalic, pupils reactive, negative for conjunctival pallor or scleral icterus, mucous membranes moist, throat clear, neck supple, nontender, trachea midline. Lungs: Clear to auscultation, breath sounds equal bilaterally, chest nontender. Heart: S1S2, regular, tachycardic negative for clicks, rubs, or JVD. Abdomen: Soft, nondistended, nontender. Negative for masses or hepatosplenomegaly. Negative for costovertebral tenderness. Pelvis: Stable nontender. Genitourinary: Deferred. Rectal: Deferred. Extremities: Atraumatic, negative for cords or calf pain. Neurovascular unremarkable. Neuro: Awake, alert, oriented. Cranial nerves II through XII unremarkable. Cerebellum unremarkable. Motor and sensory unremarkable throughout. Exam nonfocal. Diagnostics: CBC CMP troponin PT/INR chest x-ray EKG UDS Therapeutics: IV O2 monitor Cardizem 20 mg IV Impression: #1 atrial flutter with rapid ventricular response #2 history of diabetes Definitive disposition and diagnosis as appropriate pending reevaluation and review of above. Chest Pain Score (Numeric/FACES): 7 - Related Data Allergies Allergy/AdvReac Type Severity Reaction Status Date / Time bee venom protein (honey bee) Allergy Anaphylactic Verified 07/31/19 21:26 Shock Home Meds: Home Meds Apixaban [Eliquis] 5 mg PO BID 04/20/19 [History] DULoxetine HCl [Duloxetine HCl] 1 tab PO DAILY 04/20/19 [History] Insulin Detemir [Levemir Flextouch] 16 units SQ BEDTIME 04/20/19 [History] Pantoprazole Sodium 40 mg PO DAILY 04/20/19 [History] Pregabalin [Lyrica] 150 mg PO QID 04/20/19 [History] metFORMIN [Glucophage] 2 tab PO BID 04/20/19 [History] traZODone HCl [Trazodone HCl] 100 mg PO BEDTIME 04/20/19 [History] Amiodarone [Cordarone] 200 mg PO DAILY #30 tablet 04/24/19 [Rx] Digoxin 125 mcg PO DAILY #30 tablet 04/24/19 [Rx] Metoprolol Succinate 100 mg PO DAILY 07/22/19 [History] QUEtiapine [SEROquel] 50 mg PO BEDTIME 07/22/19 [History] Diltiazem HCl [Diltiazem ER] 120 mg PO DAILY #30 cap.er.12h 08/01/19 [Rx] Furosemide [Lasix] 40 mg PO DAILY #30 tab 08/01/19 [Rx] atorvaSTATin [Lipitor] 80 mg PO 08/07/19 [History] Past Medical History HEENT History: Reports: None Cardiovascular History: Reports: Arrhythmia, Blood Clots/VTE/DVT, CAD, Hypertension Respiratory History: Reports: COPD Gastrointestinal History: Reports: Bowel Obstruction, GERD, Other (See Below) Other Gastrointestinal History: Intestinal rupture Genitourinary History: Reports: None Musculoskeletal History: Reports: Back Pain, Chronic, Fracture Neurological History: Reports: CVA Other Neuro History: 3 strokes in the last 1.5 years Psychiatric History: Reports: Anxiety, Depression Endocrine/Metabolic History: Reports: Diabetes, Type II Hematologic History: Reports: None Immunologic History: Reports: None Oncologic (Cancer) History: Reports: None Dermatologic History: Reports: None - Infectious Disease History Infectious Disease History: Reports: Chicken Pox - Past Surgical History Cardiovascular Surgical History: Reports: Other (See Below) Other Cardiovascular Surgeries/Procedures: Cardioversion GI Surgical History: Reports: Colonoscopy, Small Bowel Musculoskeletal Surgical History: Reports: Other (See Below) Other Musculoskeletal Surgeries/Procedures:: 6 back surgeries, 2 neck surgeries , titanium plate in neck, titanium plate in lower back Social & Family History - Family History Family Medical History: Noncontributory - Tobacco Use Smoking Status *Q: Current Every Day Smoker Years of Tobacco use: 40 Packs/Tins Daily: 0.5 - Caffeine Use Caffeine Use: Reports: None - Recreational Drug Use Recreational Drug Use: Yes Recreational Drug Type: Reports: Marijuana/Hashish - Living Situation & Occupation Living situation: Reports: with Family Occupation: Retired ED ROS GENERAL - Review of Systems Review Of Systems: ROS reveals no pertinent complaints other than HPI. ED EXAM, GENERAL - Physical Exam Exam: See Below (dictation) Course - Vital Signs Last Recorded V/S: Last Vital Signs Temp 35.8 C 08/07/19 09:41 Pulse 121 H 08/07/19 13:45 Resp 20 08/07/19 13:00 BP 104/69 08/07/19 13:45 Pulse Ox 99 08/07/19 13:00 - Orders/Labs/Meds Orders: Active Orders 24 hr Category Date Time Status Cardiac Monitoring [RC] . DIRECTED Care 08/07/19 09:45 Active EKG Documentation Completion [RC] STAT Care 08/07/19 09:45 Active Oxygen Therapy, ED [RC] ASDIRECTED Care 08/07/19 09:45 Active Diltiazem 125 mg Med 08/07/19 13:00 Active Sodium Chloride 0.9% [Normal Saline] 100 ml IV NOW Sodium Chloride 0.9% [Saline Flush] Med 08/07/19 09:45 Active 10 ml FLUSH ASDIRECTED PRN Sodium Chloride 0.9% [Saline Flush] Med 08/07/19 09:45 Active 2.5 ml FLUSH ASDIRECTED PRN Saline Lock Insert [OM.PC] Stat Oth 08/07/19 09:45 Ordered Medication Orders Diltiazem HCl 125 mg/ Sodium (Chloride) 125 mls @ 5 mls/hr IV NOW [facility]; Protocol Last Admin: 08/07/19 13:56 Dose: 5 mg/hr, 5 mls/hr Sodium Chloride (Saline Flush) 10 ml FLUSH ASDIRECTED PRN PRN Reason: Keep Vein Open Sodium Chloride (Saline Flush) 2.5 ml FLUSH ASDIRECTED PRN PRN Reason: Keep Vein Open Labs: Laboratory Tests 08/07/19 08/07/19 08/07/19 Range/Units 09:55 09:55 09:55 WBC 12.74 H (4.0-11.0) K/uL RBC 4.86 (4.50-5.90) M/uL Hgb 15.0 (13.0-17.0) g/dL Hct 47.1 (38.0-50.0) % MCV 96.9 (80.0-98.0) fL MCH 30.9 (27.0-32.0) pg MCHC 31.8 (31.0-37.0) g/dL RDW Std Deviation 53.7 (28.0-62.0) fl RDW Coeff of Dennis 15 (11.0-15.0) % Plt Count 251 (150-400) K/uL MPV 11.70 (7.40-12.00) fL Neut % (Auto) 44.5 L (48.0-80.0) % Lymph % (Auto) 44.6 H (16.0-40.0) % [place] % (Auto) 7.9 (0.0-15.0) % Eos % (Auto) 2.7 (0.0-7.0) % Baso % (Auto) 0.3 (0.0-1.5) % Neut # (Auto) 5.7 (1.4-5.7) K/uL Lymph # (Auto) 5.7 H (0.6-2.4) K/uL [place] # (Auto) 1.0 H (0.0-0.8) K/uL Eos # (Auto) 0.4 (0.0-0.7) K/uL Baso # (Auto) 0.0 (0.0-0.1) K/uL Nucleated RBC % 0.0 /100WBC Nucleated RBCs # 0 K/uL INR 0.96 Sodium (136-148) mmol/L Potassium (3.5-5.1) mmol/L Chloride (98-107) mmol/L Carbon Dioxide (21.0-32.0) mmol/L BUN (7.0-18.0) mg/dL Creatinine (0.8-1.3) mg/dL Est Cr Clr Drug Dosing mL/min Estimated GFR (MDRD) ml/min Glucose (74-106) mg/dL Calcium (8.5-10.1) mg/dL Total Bilirubin (0.2-1.0) mg/dL AST (15-37) IU/L ALT (14-63) IU/L Alkaline Phosphatase (46-116) U/L Troponin I (0.000-0.056) ng/mL B-Natriuretic Peptide 55 (<100) PG/ML Total Protein (6.4-8.2) g/dL Albumin (3.4-5.0) g/dL Globulin (2.6-4.0) g/dL Albumin/Globulin Ratio (0.9-1.6) Urine Opiates Screen (NEGATIVE) Ur Oxycodone Screen (NEGATIVE) Urine Methadone Screen (NEGATIVE) Ur Barbiturates Screen (NEGATIVE) Ur Phencyclidine Scrn (NEGATIVE) Ur Amphetamine Screen (NEGATIVE) U Methamphetamines Scrn (NEGATIVE) U Benzodiazepines Scrn (NEGATIVE) U Cocaine Metab Screen (NEGATIVE) U Marijuana (THC) Screen (NEGATIVE) 08/07/19 08/07/19 Range/Units 09:55 11:00 WBC (4.0-11.0) K/uL RBC (4.50-5.90) M/uL Hgb (13.0-17.0) g/dL Hct (38.0-50.0) % MCV (80.0-98.0) fL MCH (27.0-32.0) pg MCHC (31.0-37.0) g/dL RDW Std Deviation (28.0-62.0) fl RDW Coeff of Dennis (11.0-15.0) % Plt Count (150-400) K/uL MPV (7.40-12.00) fL Neut % (Auto) (48.0-80.0) % Lymph % (Auto) (16.0-40.0) % [place] % (Auto) (0.0-15.0) % Eos % (Auto) (0.0-7.0) % Baso % (Auto) (0.0-1.5) % Neut # (Auto) (1.4-5.7) K/uL Lymph # (Auto) (0.6-2.4) K/uL [place] # (Auto) (0.0-0.8) K/uL Eos # (Auto) (0.0-0.7) K/uL Baso # (Auto) (0.0-0.1) K/uL Nucleated RBC % /100WBC Nucleated RBCs # K/uL INR Sodium 139 (136-148) mmol/L Potassium 4.5 (3.5-5.1) mmol/L Chloride 102 (98-107) mmol/L Carbon Dioxide 26.1 (21.0-32.0) mmol/L BUN 22 H (7.0-18.0) mg/dL Creatinine 1.1 (0.8-1.3) mg/dL Est Cr Clr Drug Dosing 68.23 mL/min Estimated GFR (MDRD) > 60.0 ml/min Glucose 271 H (74-106) mg/dL Calcium 9.4 (8.5-10.1) mg/dL Total Bilirubin 0.3 (0.2-1.0) mg/dL AST 18 (15-37) IU/L ALT 24 (14-63) IU/L Alkaline Phosphatase 90 (46-116) U/L Troponin I < 0.050 (0.000-0.056) ng/mL B-Natriuretic Peptide (<100) PG/ML Total Protein 7.7 (6.4-8.2) g/dL Albumin 3.4 (3.4-5.0) g/dL Globulin 4.3 H (2.6-4.0) g/dL Albumin/Globulin Ratio 0.8 L (0.9-1.6) Urine Opiates Screen NEGATIVE (NEGATIVE) Ur Oxycodone Screen NEGATIVE (NEGATIVE) Urine Methadone Screen NEGATIVE (NEGATIVE) Ur Barbiturates Screen NEGATIVE (NEGATIVE) Ur Phencyclidine Scrn NEGATIVE (NEGATIVE) Ur Amphetamine Screen NEGATIVE (NEGATIVE) U Methamphetamines Scrn NEGATIVE (NEGATIVE) U Benzodiazepines Scrn NEGATIVE (NEGATIVE) U Cocaine Metab Screen NEGATIVE (NEGATIVE) U Marijuana (THC) Screen NEGATIVE (NEGATIVE) Meds: Medications Generic Name Dose Route Start Last Admin Trade Name Freq PRN Reason Stop Dose Admin Diltiazem HCl 125 mg/ Sodium 125 mls @ 5 mls/hr 08/07/19 13:00 08/07/19 13:56 Chloride IV 5 mg/hr NOW CHEKO 5 mls/hr Administration Protocol 5 MG/HR Sodium Chloride 10 ml 10/17/19 09:45 Saline Flush FLUSH ASDIRECTED PRN Keep Vein Open Sodium Chloride 2.5 ml 08/07/19 09:45 Saline Flush FLUSH ASDIRECTED PRN Keep Vein Open Discontinued Medications Generic Name Dose Route Start Last Admin Trade Name Freq PRN Reason Stop Dose Admin Diltiazem HCl 20 mg 08/07/19 09:50 08/07/19 09:51 Diltiazem IVPUSH 08/07/19 09:51 20 mg ONETIME ONE Administration Departure - Departure Time of Disposition: 14:10 Disposition: DC/Tfer to Acute Hospital 02 Condition: Serious Clinical Impression: Atrial flutter with rapid ventricular response - Discharge Information Forms: ED Department Discharge - My Orders Last 24 Hours: My Active Orders 08/07/19 09:45 Cardiac Monitoring [RC] . DIRECTED EKG Documentation Completion [RC] STAT Oxygen Therapy, ED [RC] ASDIRECTED Sodium Chloride 0.9% [Saline Flush] 10 ml FLUSH ASDIRECTED PRN Sodium Chloride 0.9% [Saline Flush] 2.5 ml FLUSH ASDIRECTED PRN Saline Lock Insert [OM.PC] Stat - Assessment/Plan Last 24 Hours: My Active Orders 08/07/19 09:45 Cardiac Monitoring [RC] . DIRECTED EKG Documentation Completion [RC] STAT Oxygen Therapy, ED [RC] ASDIRECTED Sodium Chloride 0.9% [Saline Flush] 10 ml FLUSH ASDIRECTED PRN Sodium Chloride 0.9% [Saline Flush] 2.5 ml FLUSH ASDIRECTED PRN Saline Lock Insert [OM.PC] Stat
--- NOTE | 2019-08-07 10:24 | CR ---
INDICATION: prior sent. 1 image. chest pain TECHNIQUE: Chest 1 view. COMPARISON: 07/31/19 FINDINGS: Cardiovascular and mediastinum: Heart size and vasculature are normal in caliber and appearance. Mediastinum is within normal limits. Lungs and pleural space: Lungs are clear. No sign of infiltrate or mass. No sign of pleural effusion. No pneumothorax. Bones and soft tissues: No significant findings. IMPRESSION: Unremarkable chest. Dictated by: Pelon Ambriz MD @ 08/07/2019 10:22:19 (Electronically Signed)
[2019-08-07 10:49] LABS: BLOOD UREA NITROGEN,BUN 22 mg/dL (7.0-18.0); CARBON DIOXIDE,CO2 26.1 mmol/L (21.0-32.0); CHLORIDE,CL 102 mmol/L (98-107); GLUCOSE RANDOM 271 mg/dL (74-106); POTASSIUM,K 4.5 mmol/L (3.5-5.1); SODIUM,NA 139 mmol/L (136-148)
[2019-08-07] MEDS ORDERED: Diltiazem 125 MG in Sodium Chloride 0.9% 100 ML IV SCH (13:00)
--- NOTE | 2019-08-07 13:08 | PCM.HP.2 ---
H&P History of Present Illness - General Date of Service: 08/07/19 - History of Present Illness Initial Comments - Free Text/Narative: 59 yo male with past medical history of DM and atrial flutter with multiple admissions for atrial flutter with rapid ventricular response. He has been loaded with amiodarone, taking Eliquis, Metoprolol, diltiazem, and digoxin. He has had multiple cardioversions but does not stay in normal sinus long. Patient presents again with palpitations and chest pressure. He was found to be in atrial flutter with HR in the 140s he was given IV diltiazem with resolution of his symptoms and improvement in his HR to 100-120s. Chest Pain Score (Numeric/FACES): 7 - Related Data Allergies/Adverse Reactions: Allergies Allergy/AdvReac Type Severity Reaction Status Date / Time bee venom protein (honey bee) Allergy Anaphylactic Verified 07/31/19 21:26 Shock Home Medications: Home Meds Apixaban [Eliquis] 5 mg PO BID 04/20/19 [History] DULoxetine HCl [Duloxetine HCl] 1 tab PO DAILY 04/20/19 [History] Insulin Detemir [Levemir Flextouch] 16 units SQ BEDTIME 04/20/19 [History] Pantoprazole Sodium 40 mg PO DAILY 04/20/19 [History] Pregabalin [Lyrica] 150 mg PO QID 04/20/19 [History] metFORMIN [Glucophage] 2 tab PO BID 04/20/19 [History] traZODone HCl [Trazodone HCl] 100 mg PO BEDTIME 04/20/19 [History] Amiodarone [Cordarone] 200 mg PO DAILY #30 tablet 04/24/19 [Rx] Digoxin 125 mcg PO DAILY #30 tablet 04/24/19 [Rx] Metoprolol Succinate 100 mg PO DAILY 07/22/19 [History] QUEtiapine [SEROquel] 50 mg PO BEDTIME 07/22/19 [History] Diltiazem HCl [Diltiazem ER] 120 mg PO DAILY #30 cap.er.12h 08/01/19 [Rx] Furosemide [Lasix] 40 mg PO DAILY #30 tab 08/01/19 [Rx] atorvaSTATin [Lipitor] 80 mg PO 08/07/19 [History] Past Medical History HEENT History: Reports: None Cardiovascular History: Reports: Arrhythmia, Blood Clots/VTE/DVT, CAD, Hypertension Respiratory History: Reports: COPD Gastrointestinal History: Reports: Bowel Obstruction, GERD, Other (See Below) Other Gastrointestinal History: Intestinal rupture Genitourinary History: Reports: None Musculoskeletal History: Reports: Back Pain, Chronic, Fracture Neurological History: Reports: CVA Other Neuro History: 3 strokes in the last 1.5 years Psychiatric History: Reports: Anxiety, Depression Endocrine/Metabolic History: Reports: Diabetes, Type II Hematologic History: Reports: None Immunologic History: Reports: None Oncologic (Cancer) History: Reports: None Dermatologic History: Reports: None - Infectious Disease History Infectious Disease History: Reports: Chicken Pox - Past Surgical History Cardiovascular Surgical History: Reports: Other (See Below) Other Cardiovascular Surgeries/Procedures: Cardioversion GI Surgical History: Reports: Colonoscopy, Small Bowel Musculoskeletal Surgical History: Reports: Other (See Below) Other Musculoskeletal Surgeries/Procedures:: 6 back surgeries, 2 neck surgeries , titanium plate in neck, titanium plate in lower back Social & Family History - Family History Family Medical History: Noncontributory - Tobacco Use Smoking Status *Q: Current Every Day Smoker Years of Tobacco use: 40 Packs/Tins Daily: 0.5 - Caffeine Use Caffeine Use: Reports: None - Recreational Drug Use Recreational Drug Use: Yes Recreational Drug Type: Reports: Marijuana/Hashish - Living Situation & Occupation Living situation: Reports: with Family Occupation: Retired H&P Review of Systems - Review of Systems: Review Of Systems: ROS reveals no pertinent complaints other than HPI. Exam - Exam Exam: See Below - Vital Signs Vital Signs: Last Vital Signs Temp 35.8 C 08/07/19 09:41 Pulse 58 L 08/07/19 11:24 Resp 18 08/07/19 11:24 BP 101/78 08/07/19 11:24 Pulse Ox 94 L 08/07/19 11:24 Weight: 81.647 kg - Exam General: Alert, Oriented HEENT: Mucosa Moist & [place] Lungs: Clear to Auscultation, Normal Respiratory Effort Cardiovascular: Irregular Rhythm, Tachycardia GI/Abdominal Exam: Soft, Non-Tender Extremities: Non-Tender, No Pedal Edema Skin: Warm, Dry, Intact - Patient Data Lab Results Last 24 hrs: Laboratory Results - last 24 hr 08/07/19 08/07/19 08/07/19 Range/Units 09:55 09:55 09:55 WBC 12.74 H (4.0-11.0) K/uL RBC 4.86 (4.50-5.90) M/uL Hgb 15.0 (13.0-17.0) g/dL Hct 47.1 (38.0-50.0) % MCV 96.9 (80.0-98.0) fL MCH 30.9 (27.0-32.0) pg MCHC 31.8 (31.0-37.0) g/dL RDW Std Deviation 53.7 (28.0-62.0) fl RDW Coeff of Dennis 15 (11.0-15.0) % Plt Count 251 (150-400) K/uL MPV 11.70 (7.40-12.00) fL Neut % (Auto) 44.5 L (48.0-80.0) % Lymph % (Auto) 44.6 H (16.0-40.0) % [place] % (Auto) 7.9 (0.0-15.0) % Eos % (Auto) 2.7 (0.0-7.0) % Baso % (Auto) 0.3 (0.0-1.5) % Neut # (Auto) 5.7 (1.4-5.7) K/uL Lymph # (Auto) 5.7 H (0.6-2.4) K/uL [place] # (Auto) 1.0 H (0.0-0.8) K/uL Eos # (Auto) 0.4 (0.0-0.7) K/uL Baso # (Auto) 0.0 (0.0-0.1) K/uL Nucleated RBC % 0.0 /100WBC Nucleated RBCs # 0 K/uL INR 0.96 Sodium (136-148) mmol/L Potassium (3.5-5.1) mmol/L Chloride (98-107) mmol/L Carbon Dioxide (21.0-32.0) mmol/L BUN (7.0-18.0) mg/dL Creatinine (0.8-1.3) mg/dL Est Cr Clr Drug Dosing mL/min Estimated GFR (MDRD) ml/min Glucose (74-106) mg/dL Calcium (8.5-10.1) mg/dL Total Bilirubin (0.2-1.0) mg/dL AST (15-37) IU/L ALT (14-63) IU/L Alkaline Phosphatase (46-116) U/L Troponin I (0.000-0.056) ng/mL B-Natriuretic Peptide 55 (<100) PG/ML Total Protein (6.4-8.2) g/dL Albumin (3.4-5.0) g/dL Globulin (2.6-4.0) g/dL Albumin/Globulin Ratio (0.9-1.6) Urine Opiates Screen (NEGATIVE) Ur Oxycodone Screen (NEGATIVE) Urine Methadone Screen (NEGATIVE) Ur Barbiturates Screen (NEGATIVE) Ur Phencyclidine Scrn (NEGATIVE) Ur Amphetamine Screen (NEGATIVE) U Methamphetamines Scrn (NEGATIVE) U Benzodiazepines Scrn (NEGATIVE) U Cocaine Metab Screen (NEGATIVE) U Marijuana (THC) Screen (NEGATIVE) 08/07/19 08/07/19 Range/Units 09:55 11:00 WBC (4.0-11.0) K/uL RBC (4.50-5.90) M/uL Hgb (13.0-17.0) g/dL Hct (38.0-50.0) % MCV (80.0-98.0) fL MCH (27.0-32.0) pg MCHC (31.0-37.0) g/dL RDW Std Deviation (28.0-62.0) fl RDW Coeff of Dennis (11.0-15.0) % Plt Count (150-400) K/uL MPV (7.40-12.00) fL Neut % (Auto) (48.0-80.0) % Lymph % (Auto) (16.0-40.0) % [place] % (Auto) (0.0-15.0) % Eos % (Auto) (0.0-7.0) % Baso % (Auto) (0.0-1.5) % Neut # (Auto) (1.4-5.7) K/uL Lymph # (Auto) (0.6-2.4) K/uL [place] # (Auto) (0.0-0.8) K/uL Eos # (Auto) (0.0-0.7) K/uL Baso # (Auto) (0.0-0.1) K/uL Nucleated RBC % /100WBC Nucleated RBCs # K/uL INR Sodium 139 (136-148) mmol/L Potassium 4.5 (3.5-5.1) mmol/L Chloride 102 (98-107) mmol/L Carbon Dioxide 26.1 (21.0-32.0) mmol/L BUN 22 H (7.0-18.0) mg/dL Creatinine 1.1 (0.8-1.3) mg/dL Est Cr Clr Drug Dosing 68.23 mL/min Estimated GFR (MDRD) > 60.0 ml/min Glucose 271 H (74-106) mg/dL Calcium 9.4 (8.5-10.1) mg/dL Total Bilirubin 0.3 (0.2-1.0) mg/dL AST 18 (15-37) IU/L ALT 24 (14-63) IU/L Alkaline Phosphatase 90 (46-116) U/L Troponin I < 0.050 (0.000-0.056) ng/mL B-Natriuretic Peptide (<100) PG/ML Total Protein 7.7 (6.4-8.2) g/dL Albumin 3.4 (3.4-5.0) g/dL Globulin 4.3 H (2.6-4.0) g/dL Albumin/Globulin Ratio 0.8 L (0.9-1.6) Urine Opiates Screen NEGATIVE (NEGATIVE) Ur Oxycodone Screen NEGATIVE (NEGATIVE) Urine Methadone Screen NEGATIVE (NEGATIVE) Ur Barbiturates Screen NEGATIVE (NEGATIVE) Ur Phencyclidine Scrn NEGATIVE (NEGATIVE) Ur Amphetamine Screen NEGATIVE (NEGATIVE) U Methamphetamines Scrn NEGATIVE (NEGATIVE) U Benzodiazepines Scrn NEGATIVE (NEGATIVE) U Cocaine Metab Screen NEGATIVE (NEGATIVE) U Marijuana (THC) Screen NEGATIVE (NEGATIVE) Result Diagrams: 08/07/19 09:55 08/07/19 09:55 Problem List Initiated/Reviewed/Updated: Yes Orders Last 24hrs: Active Orders 24 hr Category Date Time Status Cardiac Monitoring [RC] . DIRECTED Care 08/07/19 09:45 Active EKG Documentation Completion [RC] STAT Care 08/07/19 09:45 Active Oxygen Therapy, ED [RC] ASDIRECTED Care 08/07/19 09:45 Active Diltiazem 125 mg Med 08/07/19 13:00 Ordered Sodium Chloride 0.9% [Normal Saline] 100 ml IV NOW Sodium Chloride 0.9% [Saline Flush] Med 08/07/19 09:45 Active 10 ml FLUSH ASDIRECTED PRN Sodium Chloride 0.9% [Saline Flush] Med 08/07/19 09:45 Active 2.5 ml FLUSH ASDIRECTED PRN Saline Lock Insert [OM.PC] Stat Oth 08/07/19 09:45 Ordered Medication Orders Diltiazem HCl 125 mg/ Sodium (Chloride) 125 mls @ 5 mls/hr IV NOW [facility]; Protocol Sodium Chloride (Saline Flush) 10 ml FLUSH ASDIRECTED PRN PRN Reason: Keep Vein Open Sodium Chloride (Saline Flush) 2.5 ml FLUSH ASDIRECTED PRN PRN Reason: Keep Vein Open Assessment/Plan Comment:: 59 yo male who presents with atrial flutter with rapid ventricular response. He has failed multiple attempts at our facility to control he heart rate with medical managment as well as cardioversions. I recommend that the patient be transferred to a level of higher care for cardiology consultation. I called Dr. Virgen at [facility] who has accept the patient.
== END 2019-08-07 14:00 ==
LOC: MW.ED 09:37
DX: I48.92 Unspecified atrial flutter (principal); E11.9 Type 2 diabetes mellitus without complications; I25.10 Atherosclerotic heart disease of native coronary artery without angina pectoris; I10 Essential (primary) hypertension; J44.9 Chronic obstructive pulmonary disease, unspecified; K21.9 Gastro-esophageal reflux disease without esophagitis; F41.9 Anxiety disorder, unspecified; F32.9 Major depressive disorder, single episode, unspecified; F17.210 Nicotine dependence, cigarettes, uncomplicated; Z86.73 Personal history of transient ischemic attack (TIA), and cerebral infarction without residual deficits; Z91.030 Bee allergy status; Z79.01 Long term (current) use of anticoagulants; Z79.899 Other long term (current) drug therapy; Z79.4 Long term (current) use of insulin; Z86.718 Personal history of other venous thrombosis and embolism
CPT/HCPCS: 36415; 71045; 80053; 80305; 83880; 84484; 85025; 85610; 93005; 96374; 96376; 99285; J3490; J7030; 99284; A9270-GY

== ENCOUNTER 2019-08-24 11:06 | Emergency (ER) | payer MEDICARE ==
--- NOTE | 2019-08-24 11:36 | EDM.PDOC ---
ED HPI GENERAL MEDICAL PROBLEM - General Chief Complaint: Skin Complaint Stated Complaint: ABCESS Time Seen by Provider: 08/24/19 11:35 Source of Information: Reports: Patient History Limitations: Reports: No Limitations - History of Present Illness INITIAL COMMENTS - FREE TEXT/NARRATIVE: HISTORY AND PHYSICAL: History of present illness: Patient is a 59-year-old male presents to the ED with complaint of a red bump on his back. He states he noticed it last night while sleeping as he had some irritation on his back. He states it has not drained and he denies fevers, chills, nausea, vomiting, chest pain, SOB. He has history of diabetes. Review of systems: As per history of present illness and below otherwise all systems reviewed and negative. Past medical history: As per history of present illness and as reviewed below otherwise noncontributory. Surgical history: As per history of present illness and as reviewed below otherwise noncontributory. Social history: No reported history of drug or alcohol abuse. Family history: As per history of present illness and as reviewed below otherwise noncontributory. Physical exam: General: Patient sitting comfortably in no acute distress and nontoxic appearing HEENT: Atraumatic, normocephalic, pupils reactive, negative for conjunctival pallor or scleral icterus, mucous membranes moist, throat clear, neck supple, nontender, trachea midline. No meningeal signs. Lungs: Clear to auscultation, breath sounds equal bilaterally, chest nontender. Heart: S1S2, regular, negative for clicks, rubs, or overt murmur. Abdomen: Soft, nondistended, nontender. Negative for masses or hepatosplenomegaly. Negative for costovertebral tenderness. No rigidity, rebound , guarding. Pelvis: Stable nontender. Genitourinary: Deferred. Rectal: Deferred. Skin: There is a 3x3 cm erythematous nodule to the left upper back that is not induration or fluctuant. Appears to be an infected epidermal cyst. there is no warmth or drainage. Extremities: Atraumatic, negative for cords or calf pain. Neurovascular unremarkable. Neuro: Awake, alert, oriented. Cranial nerves II through XII unremarkable. Cerebellum unremarkable. Motor and sensory unremarkable throughout. Exam nonfocal. Notes: Diagnostics: [] Therapeutics: [] Prescriptions: Keflex Impression: Cellulitis, epidermal cyst Plan: Take antibiotic as instructed Follow up with primary care provider and general surgery as discussed Return to ED as needed as discussed Definitive disposition and diagnosis as appropriate pending reevaluation and review of above. Back Pain Score (Numeric/FACES): 6 - Related Data Allergies Allergy/AdvReac Type Severity Reaction Status Date / Time bee venom protein (honey bee) Allergy Anaphylactic Verified 08/24/19 11:26 Shock Home Meds: Home Meds Apixaban [Eliquis] 5 mg PO BID 04/20/19 [History] DULoxetine HCl [Duloxetine HCl] 1 tab PO DAILY 04/20/19 [History] Insulin Detemir [Levemir Flextouch] 16 units SQ BEDTIME 04/20/19 [History] Pantoprazole Sodium 40 mg PO DAILY 04/20/19 [History] Pregabalin [Lyrica] 150 mg PO QID 04/20/19 [History] metFORMIN [Glucophage] 2 tab PO BID 04/20/19 [History] traZODone HCl [Trazodone HCl] 100 mg PO BEDTIME 04/20/19 [History] Amiodarone [Cordarone] 200 mg PO DAILY #30 tablet 04/24/19 [Rx] Digoxin 125 mcg PO DAILY #30 tablet 04/24/19 [Rx] Metoprolol Succinate 100 mg PO DAILY 07/22/19 [History] QUEtiapine [SEROquel] 50 mg PO BEDTIME 07/22/19 [History] Diltiazem HCl [Diltiazem ER] 120 mg PO DAILY #30 cap.er.12h 08/01/19 [Rx] Furosemide [Lasix] 40 mg PO DAILY #30 tab 08/01/19 [Rx] atorvaSTATin [Lipitor] 80 mg PO DAILY 08/07/19 [History] cephALEXin [Keflex] 500 mg PO BID 10 Days #20 cap 08/24/19 [Rx] Past Medical History HEENT History: Reports: None Cardiovascular History: Reports: Arrhythmia, Blood Clots/VTE/DVT, CAD, Hypertension Respiratory History: Reports: COPD Gastrointestinal History: Reports: Bowel Obstruction, GERD, Other (See Below) Other Gastrointestinal History: Intestinal rupture Genitourinary History: Reports: None Musculoskeletal History: Reports: Back Pain, Chronic, Fracture Neurological History: Reports: CVA Other Neuro History: 3 strokes in the last 1.5 years Psychiatric History: Reports: Anxiety, Depression Endocrine/Metabolic History: Reports: Diabetes, Type II Hematologic History: Reports: None Immunologic History: Reports: None Oncologic (Cancer) History: Reports: None Dermatologic History: Reports: None - Infectious Disease History Infectious Disease History: Reports: None - Past Surgical History Cardiovascular Surgical History: Reports: Other (See Below) Other Cardiovascular Surgeries/Procedures: Cardioversion GI Surgical History: Reports: Colonoscopy, Small Bowel Musculoskeletal Surgical History: Reports: Other (See Below) Other Musculoskeletal Surgeries/Procedures:: 6 back surgeries, 2 neck surgeries , titanium plate in neck, titanium plate in lower back Social & Family History - Family History Family Medical History: Noncontributory - Tobacco Use Smoking Status *Q: Current Some Day Smoker Years of Tobacco use: 0 Packs/Tins Daily: 0 - Caffeine Use Caffeine Use: Reports: Coffee - Recreational Drug Use Recreational Drug Use: No - Living Situation & Occupation Living situation: Reports: with Family Occupation: Retired ED ROS GENERAL - Review of Systems Review Of Systems: ROS reveals no pertinent complaints other than HPI. ED EXAM, SKIN/RASH Exam: See Below (see dictation) Course - Vital Signs Last Recorded V/S: Last Vital Signs Temp 96.9 F 08/24/19 11:28 Pulse 113 H 08/24/19 11:28 Resp 18 08/24/19 11:28 BP 120/94 H 08/24/19 11:28 Pulse Ox 96 08/24/19 11:28 Departure - Departure Time of Disposition: 11:35 Disposition: Home, Self-Care 01 Condition: Good Clinical Impression: Cellulitis - Discharge Information Prescriptions: cephALEXin [Keflex] 500 mg PO BID 10 Days #20 cap Instructions: Cellulitis, Adult, [id number] Referrals: Siddharth Randolph MD [Primary Care Provider] - Forms: ED Department Discharge Additional Instructions: The following information is given to patients seen in the emergency department who are being discharged to home. This information is to outline your options for follow-up care. We provide all patients seen in our emergency department with a follow-up referral. The need for follow-up, as well as the timing and circumstances, are variable depending upon the specifics of your emergency department visit. If you don't have a primary care physician on staff, we will provide you with a referral. We always advise you to contact your personal physician following an emergency department visit to inform them of the circumstance of the visit and for follow-up with them and/or the need for any referrals to a consulting specialist. The emergency department will also refer you to a specialist when appropriate. This referral assures that you have the opportunity for follow-up care with a specialist. All of these measure are taken in an effort to provide you with optimal care, which includes your follow-up. Under all circumstances we always encourage you to contact your private physician who remains a resource for coordinating your care. When calling for follow-up care, please make the office aware that this follow-up is from your recent emergency room visit. If for any reason you are refused follow-up, please contact the [facility] Emergency Department at and asked to speak to the emergency department charge nurse. [facility] [address] [place] [address] [address] Take antibiotic as instructed Follow up with primary care provider and general surgery as discussed Return to ED as needed as discussed
== END 2019-08-24 11:47 | disposition home or self-care (01) ==
LOC: MW.ED 11:06
DX: L03.312 Cellulitis of back [any part except buttock and flank] (principal); L72.0 Epidermal cyst; I25.10 Atherosclerotic heart disease of native coronary artery without angina pectoris; I10 Essential (primary) hypertension; E11.9 Type 2 diabetes mellitus without complications; F32.9 Major depressive disorder, single episode, unspecified; F41.9 Anxiety disorder, unspecified; F17.200 Nicotine dependence, unspecified, uncomplicated; K21.9 Gastro-esophageal reflux disease without esophagitis; Z86.73 Personal history of transient ischemic attack (TIA), and cerebral infarction without residual deficits; Z79.4 Long term (current) use of insulin; Z79.899 Other long term (current) drug therapy
CPT/HCPCS: 99282; 99283

== ENCOUNTER 2019-08-29 17:38 | Emergency (ER) | payer MEDICARE ==
[2019-08-29] MEDS ORDERED: Lidocaine 1% with EPINEPHrine 1:100,000 20 ML MDV INJECT ONE (18:05)
--- NOTE | 2019-08-29 18:10 | EDM.PDOC ---
ED HPI GENERAL MEDICAL PROBLEM - General Chief Complaint: Skin Complaint Stated Complaint: BOIL ON BACK Time Seen by Provider: 08/29/19 17:59 Source of Information: Reports: Patient History Limitations: Reports: No Limitations - History of Present Illness INITIAL COMMENTS - FREE TEXT/NARRATIVE: HISTORY AND PHYSICAL: History of present illness: Patient is a 59-year-old male who presents to the ED today with concern of a boil on his back. Patient states he was seen recently in the emergency room and was placed on Keflex. Patient states he has been taking the antibiotic but the area seems to be getting bigger. Patient was seen in the ED on 08/24/19 and was given a prescription for Keflex and at that time the wound was described to be a 3 cm x 3 cm red nodule of the left upper back without induration or fluctuance. Other than the blood on his back, patient denies any other associated symptoms or any fevers or chills. Patient denies fever, chills, chest pain, shortness of breath, or cough. Denies headache, neck stiff ness, change in vision, syncope, or near syncope. Denies nausea, vomiting, abdominal pain, diarrhea, constipation, or dysuria. Has not noted any blood in urine or stool. Patient has been eating and drinking appropriately. Review of systems: As per history of present illness and below otherwise all systems reviewed and negative. Past medical history: As per history of present illness and as reviewed below otherwise noncontributory. Surgical history: As per history of present illness and as reviewed below otherwise noncontributory. Social history: See social history for further information Family history: As per history of present illness and as reviewed below otherwise noncontributory. Physical exam: General: Patient is alert, oriented, and in no acute distress. Patient sitting comfortably on exam table. HEENT: Atraumatic, normocephalic, pupils equal and reactive bilaterally, negative for conjunctival pallor or scleral icterus, mucous membranes moist, TMs normal bilaterally, throat clear, neck supple, nontender, trachea midline. No drooling or trismus noted. No meningeal signs. No hot potato voice noted. Lungs: Clear to auscultation, breath sounds equal bilaterally, chest nontender. Heart: S1S2, regular rate and rhythm without overt murmur Abdomen: Soft, nondistended, nontender. Negative for masses or hepatosplenomegaly. Negative for costovertebral tenderness. Pelvis: Stable nontender. Genitourinary: Deferred. Rectal: Deferred. Skin: Intact, warm, dry. No lesions or rashes noted. Extremities: Atraumatic, negative for cords or calf pain. Neurovascular unremarkable. There is a 4 cm by 6cm abscess on the left upper back with a small pinpoint area of small amount of draining fluid. Neuro: Awake, alert, oriented. Cranial nerves II through XII unremarkable. Cerebellum unremarkable. Motor and sensory unremarkable throughout. Exam nonfocal. Notes: Dr. Altamirano directly involved in patient care. Voices understanding and is agreeable to plan of care. Denies any further questions or concerns at this time. Diagnostics: None Therapeutics: Lidocaine w epinephrine, Incision and drainage Prescription: Bactrim DS Impression: Back abscess Plan: 1. Take medication as prescribed. You can alternate ibuprofen and Tylenol as directed for pain and discomfort. 2. Follow-up with your primary care provider as discussed. Return to the ED for packing removal in 24 hours. 3. Return to the ED as needed and as discussed. Definitive disposition and diagnosis as appropriate pending reevaluation and review of above. Left Shoulder Pain Score (Numeric/FACES): 4 - Related Data Allergies Allergy/AdvReac Type Severity Reaction Status Date / Time bee venom protein (honey bee) Allergy Anaphylactic Verified 08/29/19 17:47 Shock Home Meds: Home Meds Apixaban [Eliquis] 5 mg PO BID 04/20/19 [History] DULoxetine HCl [Duloxetine HCl] 1 tab PO DAILY 04/20/19 [History] Insulin Detemir [Levemir Flextouch] 16 units SQ BEDTIME 04/20/19 [History] Pantoprazole Sodium 40 mg PO DAILY 04/20/19 [History] Pregabalin [Lyrica] 150 mg PO QID 04/20/19 [History] metFORMIN [Glucophage] 2 tab PO BID 04/20/19 [History] traZODone HCl [Trazodone HCl] 100 mg PO BEDTIME 04/20/19 [History] Amiodarone [Cordarone] 200 mg PO DAILY #30 tablet 04/24/19 [Rx] Digoxin 125 mcg PO DAILY #30 tablet 04/24/19 [Rx] Metoprolol Succinate 100 mg PO DAILY 07/22/19 [History] QUEtiapine [SEROquel] 50 mg PO BEDTIME 07/22/19 [History] Diltiazem HCl [Diltiazem ER] 120 mg PO DAILY #30 cap.er.12h 08/01/19 [Rx] Furosemide [Lasix] 40 mg PO DAILY #30 tab 08/01/19 [Rx] atorvaSTATin [Lipitor] 80 mg PO DAILY 08/07/19 [History] cephALEXin [Keflex] 500 mg PO BID 10 Days #20 cap 08/24/19 [Rx] Past Medical History HEENT History: Reports: None Cardiovascular History: Reports: Arrhythmia, Blood Clots/VTE/DVT, CAD, Hypertension Respiratory History: Reports: COPD Gastrointestinal History: Reports: Bowel Obstruction, GERD, Other (See Below) Other Gastrointestinal History: Intestinal rupture Genitourinary History: Reports: None Musculoskeletal History: Reports: Back Pain, Chronic, Fracture Neurological History: Reports: CVA Other Neuro History: 3 strokes in the last 1.5 years Psychiatric History: Reports: Anxiety, Depression Endocrine/Metabolic History: Reports: Diabetes, Type II Hematologic History: Reports: None Immunologic History: Reports: None Oncologic (Cancer) History: Reports: None Dermatologic History: Reports: None - Infectious Disease History Infectious Disease History: Reports: Chicken Pox - Past Surgical History Cardiovascular Surgical History: Reports: Cardiac Ablation, Other (See Below) Other Cardiovascular Surgeries/Procedures: Cardioversion GI Surgical History: Reports: Colonoscopy, Small Bowel Musculoskeletal Surgical History: Reports: Other (See Below) Other Musculoskeletal Surgeries/Procedures:: 6 back surgeries, 2 neck surgeries , titanium plate in neck, titanium plate in lower back Social & Family History - Family History Family Medical History: Noncontributory - Tobacco Use Smoking Status *Q: Former Smoker Years of Tobacco use: 48 Packs/Tins Daily: 1 Used Tobacco, but Quit: Yes Month/Year Tobacco Last Used: 3 weeks - Caffeine Use Caffeine Use: Reports: None - Recreational Drug Use Recreational Drug Use: Yes Recreational Drug Type: Reports: Marijuana/Hashish Recreational Drug Use Frequency: Not Used In Over 1 Month - Living Situation & Occupation Living situation: Reports: with Family Occupation: Retired ED ROS GENERAL - Review of Systems Review Of Systems: ROS reveals no pertinent complaints other than HPI. ED EXAM, SKIN/RASH Exam: See Below (See dictation) ED SKIN PROCEDURES - I&D Site: left upper back Skin Prep: Chlorhexidine (Hibiciens), Providone-Iodine (Betadine) Local Anesthesia: Lidocaine: 1% with EPI Local Anesthetic Volume: 5cc Area Incised With: 11 Blade Drainage: Purulent, Bloody, Moderate Amount Probed to Break Up Loculations: Yes Packed With: 1/4 in. Iodoform Sterile Dressing: Adhesive Dressing Complications: No Course - Vital Signs Last Recorded V/S: Last Vital Signs Temp 96 F 08/29/19 17:48 Pulse 105 H 08/29/19 17:48 Resp 18 08/29/19 17:48 BP 161/104 H 08/29/19 17:48 Pulse Ox 96 08/29/19 17:48 - Orders/Labs/Meds Meds: Medications Discontinued Medications Generic Name Dose Route Start Last Admin Trade Name Gloria PRN Reason Stop Dose Admin Lidocaine/Epinephrine 20 ml 08/29/19 18:05 08/29/19 18:11 Xylocaine 1% With Epinephrine 1:100,000 INJECT 08/29/19 18:06 20 ml ONETIME ONE Administration Departure - Departure Time of Disposition: 18:33 Disposition: Home, Self-Care 01 Clinical Impression: Back abscess - Discharge Information Referrals: Siddharth Randolph MD [Primary Care Provider] - Forms: ED Department Discharge Additional Instructions: The following information is given to patients seen in the emergency department who are being discharged to home. This information is to outline your options for follow-up care. We provide all patients seen in our emergency department with a follow-up referral. The need for follow-up, as well as the timing and circumstances, are variable depending upon the specifics of your emergency department visit. If you don't have a primary care physician on staff, we will provide you with a referral. We always advise you to contact your personal physician following an emergency department visit to inform them of the circumstance of the visit and for follow-up with them and/or the need for any referrals to a consulting specialist. The emergency department will also refer you to a specialist when appropriate. This referral assures that you have the opportunity for follow-up care with a specialist. All of these measure are taken in an effort to provide you with optimal care, which includes your follow-up. Under all circumstances we always encourage you to contact your private physician who remains a resource for coordinating your care. When calling for follow-up care, please make the office aware that this follow-up is from your recent emergency room visit. If for any reason you are refused follow-up, please contact the [facility] Emergency Department at and asked to speak to the emergency department charge nurse. [facility] Primary Care [address] [place] [address] [facility] [address] [place] [address] [facility] - General Surgery, Dr. Berrios [facility] [address] [place] [address], [address] [place] [address] 1. Take medication as prescribed. You can alternate ibuprofen and Tylenol as directed for pain and discomfort. 2. Follow-up with your primary care provider and general surgery as discussed. Return to the ED for packing removal in 24 hours. 3. Return to the ED as needed and as discussed.
== END 2019-08-29 18:45 | disposition home or self-care (01) ==
LOC: MW.ED 17:38
DX: L02.212 Cutaneous abscess of back [any part, except buttock and flank] (principal); I25.10 Atherosclerotic heart disease of native coronary artery without angina pectoris; I10 Essential (primary) hypertension; J44.9 Chronic obstructive pulmonary disease, unspecified; E11.9 Type 2 diabetes mellitus without complications; I49.9 Cardiac arrhythmia, unspecified; F32.9 Major depressive disorder, single episode, unspecified; F41.9 Anxiety disorder, unspecified; Z79.01 Long term (current) use of anticoagulants; Z79.4 Long term (current) use of insulin; Z79.899 Other long term (current) drug therapy; Z86.73 Personal history of transient ischemic attack (TIA), and cerebral infarction without residual deficits; Z86.718 Personal history of other venous thrombosis and embolism; Z87.891 Personal history of nicotine dependence; Z91.030 Bee allergy status
CPT/HCPCS: 10060; 10061; 99282; 99282-25

== ENCOUNTER 2019-08-30 17:46 | Observation (INO) | payer MEDICARE ==
[2019-08-30] MEDS ORDERED: Sodium Chloride 0.9% 10 ML Syringe FLUSH PRN (17:55)
[2019-08-30] MEDS ORDERED: Sodium Chloride 0.9% 2.5 ML Syringe FLUSH PRN (17:55)
--- NOTE | 2019-08-30 17:55 | EDM.PDOC ---
ED HPI GENERAL MEDICAL PROBLEM - General Chief Complaint: Chest Pain Stated Complaint: WOUND Time Seen by Provider: 08/30/19 17:55 Source of Information: Reports: Patient History Limitations: Reports: No Limitations - History of Present Illness INITIAL COMMENTS - FREE TEXT/NARRATIVE: HISTORY AND PHYSICAL: History of present illness: Patient is a 59-year-old male presents to the ED for packing removal. He states he had an I&D done yesterday and placed on antibiotics and is here for packing removal. He states about 1 hour prior to arrival to the ED he developed chest pain. He states he does have some shortness of breath with walking. Patient has history of type 2 diabetes and atrial fibrillation on anticoagulation. Review of systems: As per history of present illness and below otherwise all systems reviewed and negative. Past medical history: As per history of present illness and as reviewed below otherwise noncontributory. Surgical history: As per history of present illness and as reviewed below otherwise noncontributory. Social history: No reported history of drug or alcohol abuse. Family history: As per history of present illness and as reviewed below otherwise noncontributory. Physical exam: General: Patient sitting comfortably in no acute distress and nontoxic appearing HEENT: Atraumatic, normocephalic, pupils reactive, negative for conjunctival pallor or scleral icterus, mucous membranes moist, throat clear, neck supple, nontender, trachea midline. No meningeal signs. Lungs: Clear to auscultation, breath sounds equal bilaterally, chest nontender. Heart: S1S2, regular, negative for clicks, rubs, or overt murmur. Abdomen: Soft, nondistended, nontender. Negative for masses or hepatosplenomegaly. Negative for costovertebral tenderness. No rigidity, rebound , guarding. Pelvis: Stable nontender. Genitourinary: Deferred. Rectal: Deferred. Skin: Packing removed from the incision in the left upper back. There is no purulent drainage and no fluctuance noted. There is no surrounding erythema or warmth. Extremities: Atraumatic, negative for cords or calf pain. Neurovascular unremarkable. Neuro: Awake, alert, oriented. Cranial nerves II through XII unremarkable. Cerebellum unremarkable. Motor and sensory unremarkable throughout. Exam nonfocal. Notes: Diagnostics: CBC, CMP, troponin, EKG, CXR, lactate, blood culture x 2 Therapeutics: 1L NS IV Nitro x 3 2mg Morphine IV Prescriptions: Impression: Chest pain r/o ACS, wound recheck Plan: Discussed with Dr. Nguyen, patient will be admitted to observation on telemetry for rule out chest pain Definitive disposition and diagnosis as appropriate pending reevaluation and review of above. chest Pain Score (Numeric/FACES): 6 - Related Data Allergies Allergy/AdvReac Type Severity Reaction Status Date / Time bee venom protein (honey bee) Allergy Anaphylactic Verified 08/30/19 18:05 Shock Home Meds: Home Meds Apixaban [Eliquis] 5 mg PO BID 04/20/19 [History] DULoxetine HCl [Duloxetine HCl] 1 tab PO DAILY 04/20/19 [History] Insulin Detemir [Levemir Flextouch] 16 units SQ BEDTIME 04/20/19 [History] Pantoprazole Sodium 40 mg PO DAILY 04/20/19 [History] Pregabalin [Lyrica] 150 mg PO QID 04/20/19 [History] metFORMIN [Glucophage] 2 tab PO BID 04/20/19 [History] traZODone HCl [Trazodone HCl] 100 mg PO BEDTIME 04/20/19 [History] Amiodarone [Cordarone] 200 mg PO DAILY #30 tablet 04/24/19 [Rx] Digoxin 125 mcg PO DAILY #30 tablet 04/24/19 [Rx] Metoprolol Succinate 100 mg PO DAILY 07/22/19 [History] QUEtiapine [SEROquel] 50 mg PO BEDTIME 07/22/19 [History] Diltiazem HCl [Diltiazem ER] 120 mg PO DAILY #30 cap.er.12h 08/01/19 [Rx] Furosemide [Lasix] 40 mg PO DAILY #30 tab 08/01/19 [Rx] atorvaSTATin [Lipitor] 80 mg PO DAILY 08/07/19 [History] cephALEXin [Keflex] 500 mg PO BID 10 Days #20 cap 08/24/19 [Rx] Past Medical History HEENT History: Reports: None Cardiovascular History: Reports: Arrhythmia, Blood Clots/VTE/DVT, CAD, Hypertension Respiratory History: Reports: COPD Gastrointestinal History: Reports: Bowel Obstruction, GERD, Other (See Below) Other Gastrointestinal History: Intestinal rupture Genitourinary History: Reports: None Musculoskeletal History: Reports: Back Pain, Chronic, Fracture Neurological History: Reports: CVA Other Neuro History: 3 strokes in the last 1.5 years Psychiatric History: Reports: Anxiety, Depression Endocrine/Metabolic History: Reports: Diabetes, Type II Hematologic History: Reports: None Immunologic History: Reports: None Oncologic (Cancer) History: Reports: None Dermatologic History: Reports: None - Infectious Disease History Infectious Disease History: Reports: Chicken Pox - Past Surgical History Cardiovascular Surgical History: Reports: Cardiac Ablation, Other (See Below) Other Cardiovascular Surgeries/Procedures: Cardioversion GI Surgical History: Reports: Colonoscopy, Small Bowel Musculoskeletal Surgical History: Reports: Other (See Below) Other Musculoskeletal Surgeries/Procedures:: 6 back surgeries, 2 neck surgeries , titanium plate in neck, titanium plate in lower back Social & Family History - Family History Family Medical History: Noncontributory - Caffeine Use Caffeine Use: Reports: None - Living Situation & Occupation Living situation: Reports: with Family Occupation: Retired ED ROS GENERAL - Review of Systems Review Of Systems: ROS reveals no pertinent complaints other than HPI. ED EXAM, GENERAL - Physical Exam Exam: See Below (see dictation) Course - Vital Signs Last Recorded V/S: Last Vital Signs Temp 97.2 F 08/30/19 18:05 Pulse 108 H 08/30/19 19:10 Resp 18 08/30/19 19:10 BP 112/76 08/30/19 19:10 Pulse Ox 96 08/30/19 19:10 - Orders/Labs/Meds Orders: Active Orders 24 hr Category Date Time Status Cardiac Monitoring [RC] . DIRECTED Care 08/30/19 17:55 Active EKG Documentation Completion [RC] STAT Care 08/30/19 17:55 Active CULTURE BLOOD [BC] Stat Lab 08/30/19 19:26 Ordered CULTURE BLOOD [BC] Stat Lab 08/30/19 19:45 Received Sodium Chloride 0.9% [Saline Flush] Med 08/30/19 17:55 Active 10 ml FLUSH ASDIRECTED PRN Sodium Chloride 0.9% [Saline Flush] Med 08/30/19 17:55 Active 2.5 ml FLUSH ASDIRECTED PRN Blood Culture x2 Reflex Set [OM.PC] Stat Oth 08/30/19 19:26 Ordered Saline Lock Insert [OM.PC] Stat Oth 08/30/19 17:55 Ordered Medication Orders Sodium Chloride (Saline Flush) 10 ml FLUSH ASDIRECTED PRN PRN Reason: Keep Vein Open Last Admin: 08/30/19 19:25 Dose: 10 ml Sodium Chloride (Saline Flush) 2.5 ml FLUSH ASDIRECTED PRN PRN Reason: Keep Vein Open Last Admin: 08/30/19 19:25 Dose: 2.5 ml Labs: Laboratory Tests 08/30/19 08/30/19 Range/Units 18:20 18:20 WBC 12.67 H (4.0-11.0) K/uL RBC 4.83 (4.50-5.90) M/uL Hgb 15.0 (13.0-17.0) g/dL Hct 45.5 (38.0-50.0) % MCV 94.2 (80.0-98.0) fL MCH 31.1 (27.0-32.0) pg MCHC 33.0 (31.0-37.0) g/dL RDW Std Deviation 50.8 (28.0-62.0) fl RDW Coeff of Dennis 15 (11.0-15.0) % Plt Count 244 (150-400) K/uL MPV 11.50 (7.40-12.00) fL Neut % (Auto) 48.4 (48.0-80.0) % Lymph % (Auto) 39.1 (16.0-40.0) % [place] % (Auto) 8.4 (0.0-15.0) % Eos % (Auto) 3.8 (0.0-7.0) % Baso % (Auto) 0.3 (0.0-1.5) % Neut # (Auto) 6.1 H (1.4-5.7) K/uL Lymph # (Auto) 5.0 H (0.6-2.4) K/uL [place] # (Auto) 1.1 H (0.0-0.8) K/uL Eos # (Auto) 0.5 (0.0-0.7) K/uL Baso # (Auto) 0.0 (0.0-0.1) K/uL Nucleated RBC % 0.0 /100WBC Nucleated RBCs # 0 K/uL Sodium 142 (136-148) mmol/L Potassium 4.5 (3.5-5.1) mmol/L Chloride 104 (98-107) mmol/L Carbon Dioxide 26.8 (21.0-32.0) mmol/L BUN 18 (7.0-18.0) mg/dL Creatinine 1.3 (0.8-1.3) mg/dL Est Cr Clr Drug Dosing 67.44 mL/min Estimated GFR (MDRD) 56.1 ml/min Glucose 296 H (74-106) mg/dL Calcium 9.4 (8.5-10.1) mg/dL Total Bilirubin 0.2 (0.2-1.0) mg/dL AST 14 L (15-37) IU/L ALT 22 (14-63) IU/L Alkaline Phosphatase 79 (46-116) U/L Troponin I < 0.050 (0.000-0.056) ng/mL Total Protein 8.3 H (6.4-8.2) g/dL Albumin 3.9 (3.4-5.0) g/dL Globulin 4.4 H (2.6-4.0) g/dL Albumin/Globulin Ratio 0.9 (0.9-1.6) Meds: Medications Generic Name Dose Route Start Last Admin Trade Name Gloria PRN Reason Stop Dose Admin Sodium Chloride 10 ml 08/30/19 17:55 08/30/19 19:25 Saline Flush FLUSH 10 ml ASDIRECTED PRN Administration Keep Vein Open Sodium Chloride 2.5 ml 08/30/19 17:55 08/30/19 19:25 Saline Flush FLUSH 2.5 ml ASDIRECTED PRN Administration Keep Vein Open Discontinued Medications Generic Name Dose Route Start Last Admin Trade Name Frejorge a PRN Reason Stop Dose Admin Sodium Chloride 1,000 mls @ 999 mls/hr 08/30/19 18:22 08/30/19 18:27 Normal Saline IV 08/30/19 19:22 999 mls/hr STAT ONE Administration Morphine Sulfate 2 mg 08/30/19 19:03 08/30/19 19:07 Morphine IVPUSH 08/30/19 19:04 2 mg ONETIME ONE Administration Nitroglycerin 0.4 mg 08/30/19 18:22 08/30/19 18:46 Nitrostat SL 0.4 mg Q5M PRN Administration Chest Pain Ondansetron HCl 4 mg 08/30/19 18:22 08/30/19 18:30 Zofran IVPUSH 08/30/19 18:23 4 mg ONETIME ONE Administration Departure - Departure Time of Disposition: 19:33 Disposition: Refer to Observation Condition: Good Clinical Impression: Chest pain Clinical Impression: (Ruled Out): Chest pain as manifestation of blood transfusion reaction - My Orders Last 24 Hours: My Active Orders 08/30/19 17:55 Cardiac Monitoring [RC] . DIRECTED EKG Documentation Completion [RC] STAT Sodium Chloride 0.9% [Saline Flush] 10 ml FLUSH ASDIRECTED PRN Sodium Chloride 0.9% [Saline Flush] 2.5 ml FLUSH ASDIRECTED PRN Saline Lock Insert [OM.PC] Stat 08/30/19 19:26 CULTURE BLOOD [BC] Stat Blood Culture x2 Reflex Set [OM.PC] Stat 08/30/19 19:45 CULTURE BLOOD [BC] Stat - Assessment/Plan Last 24 Hours: My Active Orders 08/30/19 17:55 Cardiac Monitoring [RC] . DIRECTED EKG Documentation Completion [RC] STAT Sodium Chloride 0.9% [Saline Flush] 10 ml FLUSH ASDIRECTED PRN Sodium Chloride 0.9% [Saline Flush] 2.5 ml FLUSH ASDIRECTED PRN Saline Lock Insert [OM.PC] Stat 08/30/19 19:26 CULTURE BLOOD [BC] Stat Blood Culture x2 Reflex Set [OM.PC] Stat 08/30/19 19:45 CULTURE BLOOD [BC] Stat
[2019-08-30] MEDS ORDERED: Ondansetron 4 MG/2 ML SDV IVPUSH ONE (18:22)
[2019-08-30] MEDS ORDERED: Sodium Chloride 0.9% 1,000 ML IV ONE (18:22)
[2019-08-30] MEDS: Nitroglycerin 0.4 MG Tab.SL SL PRN ×3 (18:35→18:46)
--- NOTE | 2019-08-30 18:35 | CR ---
HISTORY: Chest pain COMPARISON: 08/07/2019 FINDINGS: A portable erect AP view of the chest was obtained at 1807 hours. The lungs remain clear. No focal or diffuse infiltrates are present. The heart remains normal in size. The mediastinum is normal in appearance. The osseous structures are normal in appearance for the patient`s age. IMPRESSION: Normal portable chest single view. Dictated by Alessio Whittaker MD @ Aug 30 2019 6:32PM Signed by Dr. Alessio Whittaker @ Aug 30 2019 6:33PM
[2019-08-30 19:01] LABS: BLOOD UREA NITROGEN,BUN 18 mg/dL (7.0-18.0); CARBON DIOXIDE,CO2 26.8 mmol/L (21.0-32.0); CHLORIDE,CL 104 mmol/L (98-107); GLUCOSE RANDOM 296 mg/dL (74-106); POTASSIUM,K 4.5 mmol/L (3.5-5.1); SODIUM,NA 142 mmol/L (136-148)
[2019-08-30] MEDS ORDERED: Morphine 2 MG/ML Syringe IVPUSH ONE (19:03)
--- NOTE | 2019-08-30 20:40 | PCM.HP.2 ---
H&P History of Present Illness - General Date of Service: 08/30/19 Admit Problem/Dx: Admission Diagnosis/Problem Admission Diagnosis/Problem Chest pain - History of Present Illness Initial Comments - Free Text/Narative: 59 yo male with pmh of DM and atrial flutter with multiple recent admission for chest pain and atrial flutter. He had an ablation on August 12 and since then he states his shortness of breath and chest pain has resolved. He reports they did not change any of his medications at discharge. Since then he developed a small abscess on his back he was treated with Keflex then switched to Bactrim after it was I&D. He came to the ED for dressing changes and then reported pain in the front of his chest as well as behind with the I&D wound. He denies any fevers or chills. He reports the pain is different from the chest pain he got from his atrial flutter and thought this is likely related to the I&D wound. chest Pain Score (Numeric/FACES): 6 - Related Data Allergies/Adverse Reactions: Allergies Allergy/AdvReac Type Severity Reaction Status Date / Time bee venom protein (honey bee) Allergy Anaphylactic Verified 08/31/19 01:08 Shock Home Medications: Home Meds Apixaban [Eliquis] 5 mg PO BID 04/20/19 [History] DULoxetine HCl [Duloxetine HCl] 1 tab PO DAILY 04/20/19 [History] Insulin Detemir [Levemir Flextouch] 16 units SQ BEDTIME 04/20/19 [History] Pantoprazole Sodium 40 mg PO DAILY 04/20/19 [History] Pregabalin [Lyrica] 150 mg PO QID 04/20/19 [History] metFORMIN [Glucophage] 2 tab PO BID 04/20/19 [History] traZODone HCl [Trazodone HCl] 100 mg PO BEDTIME 04/20/19 [History] Amiodarone [Cordarone] 200 mg PO DAILY #30 tablet 04/24/19 [Rx] Digoxin 125 mcg PO DAILY #30 tablet 04/24/19 [Rx] Metoprolol Succinate 100 mg PO DAILY 07/22/19 [History] QUEtiapine [SEROquel] 50 mg PO BEDTIME 07/22/19 [History] Diltiazem HCl [Diltiazem ER] 120 mg PO DAILY #30 cap.er.12h 08/01/19 [Rx] Furosemide [Lasix] 40 mg PO DAILY #30 tab 08/01/19 [Rx] atorvaSTATin [Lipitor] 80 mg PO DAILY 08/07/19 [History] cephALEXin [Keflex] 500 mg PO BID 10 Days #20 cap 08/24/19 [Rx] Past Medical History HEENT History: Reports: None Cardiovascular History: Reports: Arrhythmia, Blood Clots/VTE/DVT, CAD, Hypertension Respiratory History: Reports: COPD Gastrointestinal History: Reports: Bowel Obstruction, GERD, Other (See Below) Other Gastrointestinal History: Intestinal rupture Genitourinary History: Reports: None Musculoskeletal History: Reports: Back Pain, Chronic, Fracture Neurological History: Reports: CVA Other Neuro History: 3 strokes in the last 1.5 years Psychiatric History: Reports: Anxiety, Depression Endocrine/Metabolic History: Reports: Diabetes, Type II Hematologic History: Reports: None Immunologic History: Reports: None Oncologic (Cancer) History: Reports: None Dermatologic History: Reports: None - Infectious Disease History Infectious Disease History: Reports: Chicken Pox - Past Surgical History Cardiovascular Surgical History: Reports: Cardiac Ablation, Other (See Below) Other Cardiovascular Surgeries/Procedures: Cardioversion GI Surgical History: Reports: Colonoscopy, Small Bowel Musculoskeletal Surgical History: Reports: Other (See Below) Other Musculoskeletal Surgeries/Procedures:: 6 back surgeries, 2 neck surgeries , titanium plate in neck, titanium plate in lower back Social & Family History - Family History Family Medical History: Noncontributory - Tobacco Use Smoking Status *Q: Current Every Day Smoker Years of Tobacco use: 40 Packs/Tins Daily: 0.5 - Caffeine Use Caffeine Use: Reports: None - Recreational Drug Use Recreational Drug Use: No - Living Situation & Occupation Living situation: Reports: with Family Occupation: Retired H&P Review of Systems - Review of Systems: Review Of Systems: ROS reveals no pertinent complaints other than HPI. Exam - Exam Exam: See Below - Vital Signs Vital Signs: Last Vital Signs Temp 36.2 C 08/30/19 18:05 Pulse 104 H 08/30/19 20:11 Resp 20 08/30/19 20:11 BP 119/93 H 08/30/19 20:11 Pulse Ox 97 08/30/19 20:11 Weight: 101.605 kg - Exam General: Alert, Oriented HEENT: Mucosa Moist & [place] Lungs: Clear to Auscultation, Normal Respiratory Effort Cardiovascular: Regular Rate, Regular Rhythm GI/Abdominal Exam: Soft, Non-Tender Extremities: Non-Tender, No Pedal Edema Skin: Warm, Dry, Intact Neurological: Cranial Nerves Intact - Patient Data Lab Results Last 24 hrs: Laboratory Results - last 24 hr 08/30/19 08/30/19 08/30/19 Range/Units 18:20 18:20 19:45 WBC 12.67 H (4.0-11.0) K/uL RBC 4.83 (4.50-5.90) M/uL Hgb 15.0 (13.0-17.0) g/dL Hct 45.5 (38.0-50.0) % MCV 94.2 (80.0-98.0) fL MCH 31.1 (27.0-32.0) pg MCHC 33.0 (31.0-37.0) g/dL RDW Std Deviation 50.8 (28.0-62.0) fl RDW Coeff of Dennis 15 (11.0-15.0) % Plt Count 244 (150-400) K/uL MPV 11.50 (7.40-12.00) fL Neut % (Auto) 48.4 (48.0-80.0) % Lymph % (Auto) 39.1 (16.0-40.0) % [place] % (Auto) 8.4 (0.0-15.0) % Eos % (Auto) 3.8 (0.0-7.0) % Baso % (Auto) 0.3 (0.0-1.5) % Neut # (Auto) 6.1 H (1.4-5.7) K/uL Lymph # (Auto) 5.0 H (0.6-2.4) K/uL [place] # (Auto) 1.1 H (0.0-0.8) K/uL Eos # (Auto) 0.5 (0.0-0.7) K/uL Baso # (Auto) 0.0 (0.0-0.1) K/uL Nucleated RBC % 0.0 /100WBC Nucleated RBCs # 0 K/uL Lactate 1.4 (0.20-2.00) mmol/L Sodium 142 (136-148) mmol/L Potassium 4.5 (3.5-5.1) mmol/L Chloride 104 (98-107) mmol/L Carbon Dioxide 26.8 (21.0-32.0) mmol/L BUN 18 (7.0-18.0) mg/dL Creatinine 1.3 (0.8-1.3) mg/dL Est Cr Clr Drug Dosing 67.44 mL/min Estimated GFR (MDRD) 56.1 ml/min Glucose 296 H (74-106) mg/dL Calcium 9.4 (8.5-10.1) mg/dL Total Bilirubin 0.2 (0.2-1.0) mg/dL AST 14 L (15-37) IU/L ALT 22 (14-63) IU/L Alkaline Phosphatase 79 (46-116) U/L Troponin I < 0.050 (0.000-0.056) ng/mL Total Protein 8.3 H (6.4-8.2) g/dL Albumin 3.9 (3.4-5.0) g/dL Globulin 4.4 H (2.6-4.0) g/dL Albumin/Globulin Ratio 0.9 (0.9-1.6) Result Diagrams: 08/31/19 06:45 08/31/19 06:45 Problem List Initiated/Reviewed/Updated: Yes Orders Last 24hrs: Active Orders 24 hr Category Date Time Status Admission Status [Patient Status] [ADT] Stat ADT 08/30/19 19:32 Active Antiembolic Devices [RC] PER UNIT ROUTINE Care 08/30/19 20:34 Active Cardiac Monitoring [RC] . DIRECTED Care 08/30/19 17:55 Active EKG Documentation Completion [RC] STAT Care 08/30/19 17:55 Active Oxygen Therapy [RC] PRN Care 08/30/19 20:33 Active Up ad Tami [RC] ASDIRECTED Care 08/30/19 20:33 Active VTE/DVT Education [RC] PER UNIT ROUTINE Care 08/30/19 20:33 Active Vital Signs [RC] Q4H Care 08/30/19 20:33 Active [place] [employer] Diet [DIET] Diet 08/30/19 Breakfast Active BASIC METABOLIC PANEL,BMP [CHEM] AM Lab 08/31/19 05:11 Ordered CBC WITH AUTO DIFF [HEME] AM Lab 08/31/19 05:11 Ordered CULTURE BLOOD [BC] Stat Lab 08/30/19 19:26 Ordered CULTURE BLOOD [BC] Stat Lab 08/30/19 19:45 Received TROPONIN I [CHEM] Q6H Lab 08/31/19 00:00 Ordered TROPONIN I [CHEM] Q6H Lab 08/31/19 06:00 Ordered Amiodarone [Cordarone] Med 08/31/19 09:00 Ordered 200 mg PO DAILY Apixaban [Eliquis] Med 08/30/19 21:00 Ordered 5 mg PO BID DULoxetine [Cymbalta] Med 08/31/19 09:00 Ordered 60 mg PO DAILY Digoxin [Lanoxin] Med 08/31/19 09:00 Ordered 125 mcg PO DAILY Diltiazem HCl [Diltiazem 12Hr ER] Med 08/31/19 09:00 Ordered 120 mg PO DAILY Insulin Aspart [NovoLOG] Med 08/31/19 07:30 Ordered See Protocol SUBCUT TIDAC Insulin Detemir [Levemir] Med 08/30/19 21:00 Ordered 16 unit SUBCUT BEDTIME Metoprolol Succinate [Toprol XL] Med 08/31/19 09:00 Ordered 100 mg PO DAILY Pantoprazole [ProTONIX] Med 08/31/19 09:00 Ordered 40 mg PO DAILY Pregabalin Med 08/31/19 00:00 Ordered 150 mg PO QID QUEtiapine [SEROquel] Med 08/30/19 21:00 Ordered 50 mg PO BEDTIME Sodium Chloride 0.9% [Saline Flush] Med 08/30/19 17:55 Active 10 ml FLUSH ASDIRECTED PRN Sodium Chloride 0.9% [Saline Flush] Med 08/30/19 17:55 Active 2.5 ml FLUSH ASDIRECTED PRN atorvaSTATin [Lipitor] Med 08/31/19 09:00 Ordered 80 mg PO DAILY cefTRIAXone [Rocephin] Med 08/30/19 20:45 Ordered 1 gm IVPUSH Q24H traZODone HCl Med 08/30/19 21:00 Ordered 100 mg PO BEDTIME Blood Culture x2 Reflex Set [OM.PC] Stat Oth 08/30/19 19:26 Ordered Saline Lock Insert [OM.PC] Stat Oth 08/30/19 17:55 Ordered Sequential Compression Device [OM.PC] Per Unit Routine Oth 08/30/19 20:33 Ordered Resuscitation Status Routine Resus Stat 08/30/19 20:33 Ordered Medication Orders Amiodarone HCl (Cordarone) 200 mg PO DAILY [facility] Apixaban (Eliquis) 5 mg PO BID [facility] Atorvastatin Calcium (Lipitor) 80 mg PO DAILY [facility] Ceftriaxone Sodium (Rocephin) 1 gm IVPUSH Q24H [facility] Digoxin (Lanoxin) 125 mcg PO DAILY [facility] Duloxetine HCl (Cymbalta) 60 mg PO DAILY [facility] Insulin Aspart (Novolog) 0 unit SUBCUT TIDAC [facility]KO; Protocol Insulin Detemir (Levemir) 16 unit SUBCUT BEDTIME [facility] Metoprolol Succinate (Toprol Xl) 100 mg PO DAILY [facility] Non-Formulary Medication (Diltiazem Hcl [Diltiazem 12hr Er]) 120 mg PO DAILY [facility] Non-Formulary Medication (Pregabalin) 150 mg PO QID [facility] Pantoprazole Sodium (Protonix) 40 mg PO DAILY [facility] Quetiapine Fumarate (Seroquel) 50 mg PO BEDTIME [facility] Sodium Chloride (Saline Flush) 10 ml FLUSH ASDIRECTED PRN PRN Reason: Keep Vein Open Last Admin: 08/30/19 19:25 Dose: 10 ml Sodium Chloride (Saline Flush) 2.5 ml FLUSH ASDIRECTED PRN PRN Reason: Keep Vein Open Last Admin: 08/30/19 19:25 Dose: 2.5 ml Trazodone HCl (Trazodone Hcl) 100 mg PO BEDTIME [facility] Assessment/Plan Comment:: 59 yo male who was observed for chest pain when he presented for dressing changes for his back wound. He was monitored overnight with no events on telemetry. He ruled out for acute coronary syndrome with serial negative cardiac enzymes. He was discharged home to have follow up at [facility].
[2019-08-30] MEDS ORDERED: cefTRIAXone 1 GM Vial IVPUSH SCH (20:45)
[2019-08-30] MEDS ORDERED: Insulin Detemir 100 Units/ML 3 ML Pen SUBCUT SCH (21:00)
[2019-08-30] MEDS ORDERED: cefTRIAXone 1 GM in Premix Bag 1 BAG IV SCH (21:00)
[2019-08-30] MEDS ORDERED: Acetaminophen 325 MG Tab PO PRN (21:10)
[2019-08-30] MEDS ORDERED: Morphine 2 MG/ML Syringe IVPUSH PRN (21:10)
[2019-08-30] MEDS: Apixaban 5 MG Tab PO SCH (21:28)
[2019-08-30] MEDS ORDERED: traZODone 50 MG Tab PO SCH (22:00)
[2019-08-31] MEDS: Pregabalin 75 MG Cap PO SCH ×2 (00:30→06:23)
[2019-08-31] MEDS: Insulin Aspart 100 Units/ML 3 ML Pen SUBCUT SCH ×2 (06:42→11:38)
[2019-08-31 07:13] LABS: BLOOD UREA NITROGEN,BUN 17 mg/dL (7.0-18.0); CHLORIDE,CL 106 mmol/L (98-107); GLUCOSE RANDOM 197 mg/dL (74-106); POTASSIUM,K 4.7 mmol/L (3.5-5.1); SODIUM,NA 140 mmol/L (136-148)
[2019-08-31] MEDS: Apixaban 5 MG Tab PO SCH (08:50)
[2019-08-31] MEDS ORDERED: Amiodarone 200 MG Tab PO SCH (09:00)
[2019-08-31] MEDS ORDERED: Diltiazem 120 MG Cap.CD PO SCH (09:00)
[2019-08-31] MEDS ORDERED: Pantoprazole 40 MG Tab.CR PO SCH (09:00)
[2019-08-31] MEDS ORDERED: Metoprolol Succinate 100 MG Tab.ER PO SCH (09:00)
[2019-08-31] MEDS ORDERED: DILTIAZEM HCL 120 MG PO SCH (09:00)
[2019-08-31] MEDS ORDERED: atorvaSTATin 40 MG Tab PO SCH (09:00)
[2019-08-31] MEDS ORDERED: Digoxin 125 MCG Tab PO SCH (09:00)
[2019-08-31] MEDS ORDERED: DULoxetine 60 MG Cap PO SCH (09:00)
== END 2019-08-31 11:49 | disposition home or self-care (01) ==
LOC: MW.ED 17:46 → MW.MS 19:32
PROVIDERS: ADMIT Internal Medicine; ATTEND Internal Medicine
DX: R07.9 Chest pain, unspecified (principal); I48.92 Unspecified atrial flutter; L02.212 Cutaneous abscess of back [any part, except buttock and flank]; I25.10 Atherosclerotic heart disease of native coronary artery without angina pectoris; I10 Essential (primary) hypertension; J44.9 Chronic obstructive pulmonary disease, unspecified; K21.9 Gastro-esophageal reflux disease without esophagitis; F32.9 Major depressive disorder, single episode, unspecified; F41.9 Anxiety disorder, unspecified; E11.9 Type 2 diabetes mellitus without complications; F17.210 Nicotine dependence, cigarettes, uncomplicated; Z91.030 Bee allergy status; Z79.01 Long term (current) use of anticoagulants; Z79.4 Long term (current) use of insulin
CPT/HCPCS: 36415; 71045; 80048; 80053; 82962; 83605; 84484; 85025; 87040; 93005; 96361; 96374; 96375; 99285; A9270; J0696; J1815; J2270; J2405; J7040; 96365; G0378

== ENCOUNTER 2019-09-04 17:46 | Inpatient (IN) | payer MEDICARE ==
[2019-09-04] MEDS ORDERED: Aspirin 81 MG Tab.Chew PO ONE (17:54)
[2019-09-04] MEDS ORDERED: Morphine 2 MG/ML Syringe IVPUSH ONE ×2 (17:55→18:37)
[2019-09-04] MEDS: Nitroglycerin 0.4 MG Tab.SL SL PRN ×3 (18:11→18:22)
--- NOTE | 2019-09-04 18:19 | EDM.PDOC ---
ED HPI GENERAL MEDICAL PROBLEM - General Chief Complaint: Chest Pain Stated Complaint: CHEST PAIN Time Seen by Provider: 09/04/19 17:48 Source of Information: Reports: Patient History Limitations: Reports: No Limitations - History of Present Illness INITIAL COMMENTS - FREE TEXT/NARRATIVE: HISTORY AND PHYSICAL: History of present illness: Patient is a 59-year-old male who presents to the ED today with concern of chest pain over the last 2 hours. Patient has a history of atrial fibrillation status post ablation approximately 2 ago, on chronic anticoagulation, and type 2 diabetes. Patient was hospitalized after ablation 2 weeks ago. He states that his chest pain today feels similar as to when he had atrial fibrillation. Patient states he did not take anything with onset of symptoms. Patient states he is also having some nausea. Patient states he has not vomited. Patient denies any other symptoms or concerns. Patient denies fever, chills, shortness of breath, or cough. Denies headache, neck stiff ness, change in vision, syncope, or near syncope. Denies vomiting, abdominal pain, diarrhea, constipation, or dysuria. Has not noted any blood in urine or stool. Patient has been eating and drinking appropriately. Review of systems: As per history of present illness and below otherwise all systems reviewed and negative. Past medical history: As per history of present illness and as reviewed below otherwise noncontributory. Surgical history: As per history of present illness and as reviewed below otherwise noncontributory. Social history: See social history for further information Family history: As per history of present illness and as reviewed below otherwise noncontributory. Physical exam: General: Patient is alert, oriented, and in no acute distress. Patient sitting on exam table but anxious appearing and grabbing his chest, not diaphoretic. HEENT: Atraumatic, normocephalic, pupils equal and reactive bilaterally, negative for conjunctival pallor or scleral icterus, mucous membranes moist, TMs normal bilaterally, throat clear, neck supple, nontender, trachea midline. No drooling or trismus noted. No meningeal signs. No hot potato voice noted. Lungs: Clear to auscultation, breath sounds equal bilaterally, chest nontender. Heart: S1S2, regular rate and rhythm without overt murmur Abdomen: Soft, nondistended, nontender. Negative for masses or hepatosplenomegaly. Negative for costovertebral tenderness. Pelvis: Stable nontender. Genitourinary: Deferred. Rectal: Deferred. Skin: Intact, warm, dry. No lesions or rashes noted. Extremities: Atraumatic, negative for cords or calf pain. Neurovascular unremarkable. Neuro: Awake, alert, oriented. Cranial nerves II through XII unremarkable. Cerebellum unremarkable. Motor and sensory unremarkable throughout. Exam nonfocal. Notes: Dr. Romero, hospitalist operations logistics analyst, consulted on patient and will admit to inpatient with telemetry Voices understanding and is agreeable to plan of care. Denies any further questions or concerns at this time. Diagnostics: CBC, CMP, UA, EKG, chest x-ray, troponin, PT/INR, lactate, blood cultures 2 Therapeutics: Aspirin, nitroglycerin, morphine, saline, Zosyn, Vanc Impression: Right middle lobe pneumonia Chest pain Plan: 1. Admit to inpatient medical floor to Dr. Romero Definitive disposition and diagnosis as appropriate pending reevaluation and review of above. Chest Pain Score (Numeric/FACES): 7 - Related Data Allergies Allergy/AdvReac Type Severity Reaction Status Date / Time bee venom protein (honey bee) Allergy Anaphylactic Verified 09/04/19 17:54 Shock Home Meds: Home Meds Apixaban [Eliquis] 5 mg PO BID 04/20/19 [History] DULoxetine HCl [Duloxetine HCl] 1 tab PO DAILY 04/20/19 [History] Insulin Detemir [Levemir Flextouch] 16 units SQ BEDTIME 04/20/19 [History] Pantoprazole Sodium 40 mg PO DAILY 04/20/19 [History] Pregabalin [Lyrica] 150 mg PO QID 04/20/19 [History] metFORMIN [Glucophage] 2 tab PO BID 04/20/19 [History] traZODone HCl [Trazodone HCl] 100 mg PO BEDTIME 04/20/19 [History] Amiodarone [Cordarone] 200 mg PO DAILY #30 tablet 04/24/19 [Rx] Digoxin 125 mcg PO DAILY #30 tablet 04/24/19 [Rx] Metoprolol Succinate 100 mg PO DAILY 07/22/19 [History] QUEtiapine [SEROquel] 50 mg PO BEDTIME 07/22/19 [History] Diltiazem HCl [Diltiazem ER] 120 mg PO DAILY #30 cap.er.12h 08/01/19 [Rx] Furosemide [Lasix] 40 mg PO DAILY #30 tab 08/01/19 [Rx] atorvaSTATin [Lipitor] 80 mg PO DAILY 08/07/19 [History] cephALEXin [Keflex] 500 mg PO BID 10 Days #20 cap 08/24/19 [Rx] Past Medical History HEENT History: Reports: None Other HEENT History: upper and lower dentures Cardiovascular History: Reports: Arrhythmia, Blood Clots/VTE/DVT, CAD, Hypertension Other Cardiovascular History: Afib w/ rvr Respiratory History: Reports: COPD Gastrointestinal History: Reports: Bowel Obstruction, GERD, Other (See Below) Other Gastrointestinal History: Intestinal rupture Genitourinary History: Reports: None Musculoskeletal History: Reports: Back Pain, Chronic, Fracture Neurological History: Reports: CVA Other Neuro History: 3 strokes in the last 1.5 years Psychiatric History: Reports: Anxiety, Depression Endocrine/Metabolic History: Reports: Diabetes, Type II Hematologic History: Reports: None Immunologic History: Reports: None Oncologic (Cancer) History: Reports: None Dermatologic History: Reports: None - Infectious Disease History Infectious Disease History: Reports: Chicken Pox - Past Surgical History Head Surgeries/Procedures: Reports: None Cardiovascular Surgical History: Reports: Cardiac Ablation, Other (See Below) Other Cardiovascular Surgeries/Procedures: Cardioversion GI Surgical History: Reports: Colonoscopy, Small Bowel Musculoskeletal Surgical History: Reports: Other (See Below) Other Musculoskeletal Surgeries/Procedures:: 6 back surgeries, 2 neck surgeries , titanium plate in neck, titanium plate in lower back Social & Family History - Family History Family Medical History: Noncontributory - Tobacco Use Smoking Status *Q: Current Every Day Smoker Years of Tobacco use: 30 Packs/Tins Daily: 1 - Caffeine Use Caffeine Use: Reports: None - Recreational Drug Use Recreational Drug Use: Yes - Living Situation & Occupation Living situation: Reports: with Family Occupation: Retired ED ROS GENERAL - Review of Systems Review Of Systems: Comprehensive ROS is negative, except as noted in HPI. ED EXAM, GENERAL - Physical Exam Exam: See Below (See dictation) Course - Vital Signs Last Recorded V/S: Last Vital Signs Temp 98.0 F 09/04/19 17:54 Pulse 115 H 09/04/19 19:03 Resp 17 09/04/19 19:03 BP 135/103 H 09/04/19 19:03 Pulse Ox 97 09/04/19 19:03 - Orders/Labs/Meds Orders: Active Orders 24 hr Category Date Time Status EKG Documentation Completion [RC] STAT Care 09/04/19 17:52 Active CULTURE BLOOD [BC] Stat Lab 09/04/19 19:10 Received CULTURE BLOOD [BC] Stat Lab 09/04/19 19:15 Received UA RFX NORMA AND CULT IF INDIC [URIN] Stat Lab 09/04/19 17:52 Ordered Piperacillin/Tazobactam [Piperacil-Tazobact] 3.375 gm Med 09/04/19 19:23 Ordered Sodium Chloride 0.9% [Normal Saline] 50 ml IV ONETIME Sodium Chloride 0.9% [Normal Saline] 1,000 ml Med 09/04/19 18:48 Active IV STAT Vancomycin 1 gm Med 09/04/19 19:24 Ordered Sodium Chloride 0.9% [Normal Saline (AdvBag)] 250 ml IV ONETIME Blood Culture x2 Reflex Set [OM.PC] Stat Oth 09/04/19 18:47 Ordered Medication Orders Sodium Chloride (Normal Saline) 1,000 mls @ 999 mls/hr IV STAT ONE Stop: 09/04/19 19:48 Last Admin: 09/04/19 19:03 Dose: 999 mls/hr Piperacillin Sod/Tazobactam (Sod 3.375 gm/ Sodium Chloride) 50 mls @ 100 mls/ hr IV ONETIME ONE Stop: 09/04/19 19:52 Vancomycin HCl 1 gm/ Sodium (Chloride) 250 mls @ 166 mls/hr IV ONETIME ONE Stop: 09/04/19 20:54 Labs: Laboratory Tests 09/04/19 09/04/19 09/04/19 Range/Units 18:32 18:32 18:32 WBC 16.29 H (4.0-11.0) K/uL RBC 5.08 (4.50-5.90) M/uL Hgb 15.9 (13.0-17.0) g/dL Hct 47.8 (38.0-50.0) % MCV 94.1 (80.0-98.0) fL MCH 31.3 (27.0-32.0) pg MCHC 33.3 (31.0-37.0) g/dL RDW Std Deviation 52.2 (28.0-62.0) fl RDW Coeff of Dennis 15 (11.0-15.0) % Plt Count 235 (150-400) K/uL MPV 11.60 (7.40-12.00) fL Neut % (Auto) 56.9 (48.0-80.0) % Lymph % (Auto) 32.5 (16.0-40.0) % Leake % (Auto) 8.7 (0.0-15.0) % Eos % (Auto) 1.7 (0.0-7.0) % Baso % (Auto) 0.2 (0.0-1.5) % Neut # (Auto) 9.3 H (1.4-5.7) K/uL Lymph # (Auto) 5.3 H (0.6-2.4) K/uL Leake # (Auto) 1.4 H (0.0-0.8) K/uL Eos # (Auto) 0.3 (0.0-0.7) K/uL Baso # (Auto) 0.0 (0.0-0.1) K/uL Nucleated RBC % 0.0 /100WBC Nucleated RBCs # 0 K/uL INR Lactate 2.5 H (0.20-2.00) mmol/L Sodium 137 (136-148) mmol/L Potassium 4.4 (3.5-5.1) mmol/L Chloride 102 (98-107) mmol/L Carbon Dioxide 25.4 (21.0-32.0) mmol/L BUN 16 (7.0-18.0) mg/dL Creatinine 1.8 H (0.8-1.3) mg/dL Est Cr Clr Drug Dosing 48.70 mL/min Estimated GFR (MDRD) 38.6 ml/min Glucose 326 H (74-106) mg/dL Calcium 8.5 (8.5-10.1) mg/dL Total Bilirubin 0.2 (0.2-1.0) mg/dL AST 7 L (15-37) IU/L ALT 21 (14-63) IU/L Alkaline Phosphatase 73 (46-116) U/L Troponin I < 0.050 (0.000-0.056) ng/mL Total Protein 7.7 (6.4-8.2) g/dL Albumin 3.8 (3.4-5.0) g/dL Globulin 3.9 (2.6-4.0) g/dL Albumin/Globulin Ratio 1.0 (0.9-1.6) 09/04/19 Range/Units 18:43 WBC (4.0-11.0) K/uL RBC (4.50-5.90) M/uL Hgb (13.0-17.0) g/dL Hct (38.0-50.0) % MCV (80.0-98.0) fL MCH (27.0-32.0) pg MCHC (31.0-37.0) g/dL RDW Std Deviation (28.0-62.0) fl RDW Coeff of Dennis (11.0-15.0) % Plt Count (150-400) K/uL MPV (7.40-12.00) fL Neut % (Auto) (48.0-80.0) % Lymph % (Auto) (16.0-40.0) % Leake % (Auto) (0.0-15.0) % Eos % (Auto) (0.0-7.0) % Baso % (Auto) (0.0-1.5) % Neut # (Auto) (1.4-5.7) K/uL Lymph # (Auto) (0.6-2.4) K/uL Leake # (Auto) (0.0-0.8) K/uL Eos # (Auto) (0.0-0.7) K/uL Baso # (Auto) (0.0-0.1) K/uL Nucleated RBC % /100WBC Nucleated RBCs # K/uL INR 0.97 Lactate (0.20-2.00) mmol/L Sodium (136-148) mmol/L Potassium (3.5-5.1) mmol/L Chloride (98-107) mmol/L Carbon Dioxide (21.0-32.0) mmol/L BUN (7.0-18.0) mg/dL Creatinine (0.8-1.3) mg/dL Est Cr Clr Drug Dosing mL/min Estimated GFR (MDRD) ml/min Glucose (74-106) mg/dL Calcium (8.5-10.1) mg/dL Total Bilirubin (0.2-1.0) mg/dL AST (15-37) IU/L ALT (14-63) IU/L Alkaline Phosphatase (46-116) U/L Troponin I (0.000-0.056) ng/mL Total Protein (6.4-8.2) g/dL Albumin (3.4-5.0) g/dL Globulin (2.6-4.0) g/dL Albumin/Globulin Ratio (0.9-1.6) Meds: Medications Generic Name Dose Route Start Last Admin Trade Name Freq PRN Reason Stop Dose Admin Sodium Chloride 1,000 mls @ 999 mls/hr 09/04/19 18:48 09/04/19 19:03 Normal Saline IV 09/04/19 19:48 999 mls/hr STAT ONE Administration Piperacillin Sod/Tazobactam 50 mls @ 100 mls/hr 09/04/19 19:23 Sod 3.375 gm/ Sodium Chloride IV 09/04/19 19:52 ONETIME ONE Vancomycin HCl 1 gm/ Sodium 250 mls @ 166 mls/hr 09/04/19 19:24 Chloride IV 09/04/19 20:54 ONETIME ONE Discontinued Medications Generic Name Dose Route Start Last Admin Trade Name Freq PRN Reason Stop Dose Admin Aspirin 324 mg 09/04/19 17:54 09/04/19 18:07 Aspirin PO 09/04/19 17:55 324 mg ONETIME ONE Administration Ceftriaxone Sodium/Dextrose 1 50 mls @ 100 mls/hr 09/04/19 19:23 gm/ Premix IV 09/04/19 19:52 ONETIME ONE Morphine Sulfate 2 mg 09/04/19 17:55 09/04/19 18:08 Morphine IVPUSH 09/04/19 17:56 2 mg ONETIME ONE Administration Morphine Sulfate 2 mg 09/04/19 18:37 09/04/19 18:46 Morphine IVPUSH 09/04/19 18:38 2 mg ONETIME ONE Administration Nitroglycerin 0.4 mg 09/04/19 17:55 09/04/19 18:22 Nitrostat SL 0.4 mg Q5M PRN Administration Chest Pain Departure - Departure Time of Disposition: 19:29 Disposition: Admitted As Inpatient 64 Clinical Impression: Right middle lobe pneumonia Qualifiers: Pneumonia type: due to unspecified organism Qualified Code(s): J18.9 - Pneumonia, unspecified organism Chest pain Qualifiers: Chest pain type: unspecified Qualified Code(s): R07.9 - Chest pain, unspecified - Discharge Information Referrals: PCP,Unobtain [Primary Care Provider] - Forms: ED Department Discharge - My Orders Last 24 Hours: My Active Orders 09/04/19 17:52 EKG Documentation Completion [RC] STAT UA RFX NORMA AND CULT IF INDIC [URIN] Stat 09/04/19 18:47 Blood Culture x2 Reflex Set [OM.PC] Stat 09/04/19 18:48 Sodium Chloride 0.9% [Normal Saline] 1,000 ml IV STAT 09/04/19 19:10 CULTURE BLOOD [BC] Stat 09/04/19 19:15 CULTURE BLOOD [BC] Stat 09/04/19 19:23 Piperacillin/Tazobactam [Piperacil-Tazobact] 3.375 gm Sodium Chloride 0.9% [ Normal Saline] 50 ml IV ONETIME 09/04/19 19:24 Vancomycin 1 gm Sodium Chloride 0.9% [Normal Saline (AdvBag)] 250 ml IV ONETIME - Assessment/Plan Last 24 Hours: My Active Orders 09/04/19 17:52 EKG Documentation Completion [RC] STAT UA RFX NORMA AND CULT IF INDIC [URIN] Stat 09/04/19 18:47 Blood Culture x2 Reflex Set [OM.PC] Stat 09/04/19 18:48 Sodium Chloride 0.9% [Normal Saline] 1,000 ml IV STAT 09/04/19 19:10 CULTURE BLOOD [BC] Stat 09/04/19 19:15 CULTURE BLOOD [BC] Stat 09/04/19 19:23 Piperacillin/Tazobactam [Piperacil-Tazobact] 3.375 gm Sodium Chloride 0.9% [ Normal Saline] 50 ml IV ONETIME 09/04/19 19:24 Vancomycin 1 gm Sodium Chloride 0.9% [Normal Saline (AdvBag)] 250 ml IV ONETIME
--- NOTE | 2019-09-04 18:33 | CR ---
Indication: Chest pain Technique: Chest 1 view Comparison: August 30, 2019 Findings/Impression: Stable cardiomediastinal silhouette. Questionable patchy opacity at the right medial lung base. This may represent atelectasis or infection. Normal pulmonary vasculature. No or pneumothorax. Surgical hardware projects over the lower cervical spine. Dictated by Daina Collins MD @ Sep 04 2019 6:32PM Signed by Dr. Daina Collins @ Sep 04 2019 6:32PM
[2019-09-04] MEDS ORDERED: Sodium Chloride 0.9% 1,000 ML IV ONE ×2 (18:48→22:15)
[2019-09-04 19:16] LABS: BLOOD UREA NITROGEN,BUN 16 mg/dL (7.0-18.0); CARBON DIOXIDE,CO2 25.4 mmol/L (21.0-32.0); CHLORIDE,CL 102 mmol/L (98-107); GLUCOSE RANDOM 326 mg/dL (74-106); POTASSIUM,K 4.4 mmol/L (3.5-5.1); SODIUM,NA 137 mmol/L (136-148)
[2019-09-04] MEDS ORDERED: Piperacillin/Tazobactam 3.375 GM in Sodium Chloride 0.9% 50 ML IV ONE (19:23)
[2019-09-04] MEDS ORDERED: cefTRIAXone 1 GM in Premix Bag 1 BAG IV ONE (19:23)
--- NOTE | 2019-09-04 21:27 | PCM.HP.2 ---
H&P History of Present Illness - General Date of Service: 09/04/19 Admit Problem/Dx: Admission Diagnosis/Problem Admission Diagnosis/Problem Pneumonia - History of Present Illness Initial Comments - Free Text/Narative: Patient is a 59-year-old male with PMH of afib s/p ablation, DM who presents to the ED today with concern of chest pain over the last 2 hours. Patient is on chronic anticoagulation, Patient was hospitalized after ablation 2 weeks ago. He states that his chest pain today feels similar as to when he had atrial fibrillation. C/o having some nausea. but no vomiting and mild cough. Patient denies any other symptoms or concerns. In the ER, EKG showed sinus tachycardia, High WBC count, CXR showed findings concerning for Pneumonia. Patient is being admitted for management of health care associated pneumonia secondary to h/o recent hospitalization. Denied fever, chills, abdominal pain, urinary symptoms. Onset of Symptoms: Reports: Today, Sudden Duration of Symptoms: Reports: Hour(s): Location: Reports: Chest Quality: Reports: Sharp Chest Pain Score (Numeric/FACES): 5 - Related Data Allergies/Adverse Reactions: Allergies Allergy/AdvReac Type Severity Reaction Status Date / Time bee venom protein (honey bee) Allergy Anaphylactic Verified 09/04/19 17:54 Shock Home Medications: Home Meds Apixaban [Eliquis] 5 mg PO BID 04/20/19 [History] DULoxetine HCl [Duloxetine HCl] 1 tab PO DAILY 04/20/19 [History] Insulin Detemir [Levemir Flextouch] 16 units SQ BEDTIME 04/20/19 [History] Pantoprazole Sodium 40 mg PO DAILY 04/20/19 [History] Pregabalin [Lyrica] 150 mg PO QID 04/20/19 [History] metFORMIN [Glucophage] 2 tab PO BID 04/20/19 [History] traZODone HCl [Trazodone HCl] 100 mg PO BEDTIME 04/20/19 [History] Amiodarone [Cordarone] 200 mg PO DAILY #30 tablet 04/24/19 [Rx] Digoxin 125 mcg PO DAILY #30 tablet 04/24/19 [Rx] Metoprolol Succinate 100 mg PO DAILY 07/22/19 [History] QUEtiapine [SEROquel] 50 mg PO BEDTIME 07/22/19 [History] Diltiazem HCl [Diltiazem ER] 120 mg PO DAILY #30 cap.er.12h 08/01/19 [Rx] Furosemide [Lasix] 40 mg PO DAILY #30 tab 08/01/19 [Rx] atorvaSTATin [Lipitor] 80 mg PO BID 08/07/19 [History] cephALEXin [Keflex] 500 mg PO BID 10 Days #20 cap 08/24/19 [Rx] Past Medical History HEENT History: Reports: None Other HEENT History: upper and lower dentures Cardiovascular History: Reports: Arrhythmia, Blood Clots/VTE/DVT, CAD, Hypertension Other Cardiovascular History: Afib w/ rvr Respiratory History: Reports: COPD Gastrointestinal History: Reports: Bowel Obstruction, GERD, Other (See Below) Other Gastrointestinal History: Intestinal rupture Genitourinary History: Reports: None Musculoskeletal History: Reports: Back Pain, Chronic, Fracture Neurological History: Reports: CVA Other Neuro History: 3 strokes in the last 1.5 years Psychiatric History: Reports: Anxiety, Depression Endocrine/Metabolic History: Reports: Diabetes, Type II Hematologic History: Reports: None Immunologic History: Reports: None Oncologic (Cancer) History: Reports: None Dermatologic History: Reports: None - Infectious Disease History Infectious Disease History: Reports: Chicken Pox - Past Surgical History Head Surgeries/Procedures: Reports: None Cardiovascular Surgical History: Reports: Cardiac Ablation, Other (See Below) Other Cardiovascular Surgeries/Procedures: Cardioversion ablation Respiratory Surgical History: Reports: None GI Surgical History: Reports: Colonoscopy, Small Bowel Musculoskeletal Surgical History: Reports: Other (See Below) Other Musculoskeletal Surgeries/Procedures:: 6 back surgeries, 2 neck surgeries , titanium plate in neck Social & Family History - Family History Family Medical History: Noncontributory Musculoskeletal: Reports: Gout Oncologic: Reports: Other (See Below) Other Oncologic Family History: patient states mother had cancer, unsure of what kind. - Tobacco Use Smoking Status *Q: Current Some Day Smoker Years of Tobacco use: 47 Packs/Tins Daily: 1 Used Tobacco, but Quit: No Second Hand Smoke Exposure: No - Caffeine Use Caffeine Use: Reports: Coffee, Soda Caffeine Use Comment: occasional/2 cups of coffee per week - Recreational Drug Use Recreational Drug Use: Yes Drug Use in Last 12 Months: Yes Recreational Drug Type: Reports: Marijuana/Hashish Recreational Drug Use Frequency: Monthly - Living Situation & Occupation Living situation: Reports: with Family Occupation: Retired H&P Review of Systems - Review of Systems: Review Of Systems: See Below General: Denies: Fever, Chills, Malaise, Weakness Pulmonary: Reports: Pleuritic Chest Pain, Cough. Denies: Shortness of Breath, Wheezing, Sputum Cardiovascular: Reports: Chest Pain. Denies: Palpitations, Orthopnea, PND Gastrointestinal: Denies: Abdominal Pain, Anorexia, Black Stool Genitourinary: Denies: Dysuria, Frequency, Burning Musculoskeletal: Denies: Neck Pain, Shoulder Pain Skin: Denies: Cyanosis, Jaundice, Mottled Psychiatric: Denies: Confusion, Depression, Mood Lability Neurological: Denies: Confusion, Dizziness, Headache Exam - Exam Exam: See Below - Vital Signs Vital Signs: Last Vital Signs Temp 36.8 C 09/04/19 19:46 Pulse 98 09/04/19 19:46 Resp 17 09/04/19 19:46 BP 135/88 09/04/19 19:46 Pulse Ox 95 09/04/19 19:46 Weight: 105 kg - Exam General: Alert, Oriented, Cooperative HEENT: Conjunctiva Clear Neck: Supple, Trachea Midline Lungs: Decreased Breath Sounds, Rales Cardiovascular: Regular Rate, Regular Rhythm, Normal S1, Normal S2 GI/Abdominal Exam: Normal Bowel Sounds, Soft, Non-Tender Peripheral Pulses: 3+: Dorsalis Pedis (L), Dorsalis Pedis (R) - Patient Data Lab Results Last 24 hrs: Laboratory Results - last 24 hr 09/04/19 09/04/19 09/04/19 Range/Units 18:32 18:32 18:32 WBC 16.29 H (4.0-11.0) K/uL RBC 5.08 (4.50-5.90) M/uL Hgb 15.9 (13.0-17.0) g/dL Hct 47.8 (38.0-50.0) % MCV 94.1 (80.0-98.0) fL MCH 31.3 (27.0-32.0) pg MCHC 33.3 (31.0-37.0) g/dL RDW Std Deviation 52.2 (28.0-62.0) fl RDW Coeff of Dennis 15 (11.0-15.0) % Plt Count 235 (150-400) K/uL MPV 11.60 (7.40-12.00) fL Neut % (Auto) 56.9 (48.0-80.0) % Lymph % (Auto) 32.5 (16.0-40.0) % [place] % (Auto) 8.7 (0.0-15.0) % Eos % (Auto) 1.7 (0.0-7.0) % Baso % (Auto) 0.2 (0.0-1.5) % Neut # (Auto) 9.3 H (1.4-5.7) K/uL Lymph # (Auto) 5.3 H (0.6-2.4) K/uL [place] # (Auto) 1.4 H (0.0-0.8) K/uL Eos # (Auto) 0.3 (0.0-0.7) K/uL Baso # (Auto) 0.0 (0.0-0.1) K/uL Nucleated RBC % 0.0 /100WBC Nucleated RBCs # 0 K/uL INR Lactate 2.5 H (0.20-2.00) mmol/L Sodium 137 (136-148) mmol/L Potassium 4.4 (3.5-5.1) mmol/L Chloride 102 (98-107) mmol/L Carbon Dioxide 25.4 (21.0-32.0) mmol/L BUN 16 (7.0-18.0) mg/dL Creatinine 1.8 H (0.8-1.3) mg/dL Est Cr Clr Drug Dosing 48.70 mL/min Estimated GFR (MDRD) 38.6 ml/min Glucose 326 H (74-106) mg/dL Calcium 8.5 (8.5-10.1) mg/dL Total Bilirubin 0.2 (0.2-1.0) mg/dL AST 7 L (15-37) IU/L ALT 21 (14-63) IU/L Alkaline Phosphatase 73 (46-116) U/L Troponin I < 0.050 (0.000-0.056) ng/mL Total Protein 7.7 (6.4-8.2) g/dL Albumin 3.8 (3.4-5.0) g/dL Globulin 3.9 (2.6-4.0) g/dL Albumin/Globulin Ratio 1.0 (0.9-1.6) Urine Color Urine Appearance Urine pH (5.0-8.0) Ur Specific [place] (1.001-1.035) Urine Protein (NEGATIVE) mg/dL Urine Glucose (UA) (NEGATIVE) mg/dL Urine Ketones (NEGATIVE) mg/dL Urine Occult Blood (NEGATIVE) Urine Nitrite (NEGATIVE) Urine Bilirubin (NEGATIVE) Urine Urobilinogen (<2.0) EU/dL Ur Leukocyte Esterase (NEGATIVE) Urine RBC (0-2/HPF) Urine WBC (0-5/HPF) Ur Epithelial Cells (NONE-FEW) Urine Bacteria (NEGATIVE) 09/04/19 09/04/19 Range/Units 18:43 20:34 WBC (4.0-11.0) K/uL RBC (4.50-5.90) M/uL Hgb (13.0-17.0) g/dL Hct (38.0-50.0) % MCV (80.0-98.0) fL MCH (27.0-32.0) pg MCHC (31.0-37.0) g/dL RDW Std Deviation (28.0-62.0) fl RDW Coeff of Dennis (11.0-15.0) % Plt Count (150-400) K/uL MPV (7.40-12.00) fL Neut % (Auto) (48.0-80.0) % Lymph % (Auto) (16.0-40.0) % [place] % (Auto) (0.0-15.0) % Eos % (Auto) (0.0-7.0) % Baso % (Auto) (0.0-1.5) % Neut # (Auto) (1.4-5.7) K/uL Lymph # (Auto) (0.6-2.4) K/uL [place] # (Auto) (0.0-0.8) K/uL Eos # (Auto) (0.0-0.7) K/uL Baso # (Auto) (0.0-0.1) K/uL Nucleated RBC % /100WBC Nucleated RBCs # K/uL INR 0.97 Lactate (0.20-2.00) mmol/L Sodium (136-148) mmol/L Potassium (3.5-5.1) mmol/L Chloride (98-107) mmol/L Carbon Dioxide (21.0-32.0) mmol/L BUN (7.0-18.0) mg/dL Creatinine (0.8-1.3) mg/dL Est Cr Clr Drug Dosing mL/min Estimated GFR (MDRD) ml/min Glucose (74-106) mg/dL Calcium (8.5-10.1) mg/dL Total Bilirubin (0.2-1.0) mg/dL AST (15-37) IU/L ALT (14-63) IU/L Alkaline Phosphatase (46-116) U/L Troponin I (0.000-0.056) ng/mL Total Protein (6.4-8.2) g/dL Albumin (3.4-5.0) g/dL Globulin (2.6-4.0) g/dL Albumin/Globulin Ratio (0.9-1.6) Urine Color YELLOW Urine Appearance CLEAR Urine pH 6.0 (5.0-8.0) Ur Specific [place] 1.020 (1.001-1.035) Urine Protein TRACE H (NEGATIVE) mg/dL Urine Glucose (UA) >=1000 (NEGATIVE) mg/dL Urine Ketones NEGATIVE (NEGATIVE) mg/dL Urine Occult Blood NEGATIVE (NEGATIVE) Urine Nitrite NEGATIVE (NEGATIVE) Urine Bilirubin NEGATIVE (NEGATIVE) Urine Urobilinogen 0.2 (<2.0) EU/dL Ur Leukocyte Esterase NEGATIVE (NEGATIVE) Urine RBC 0-1 (0-2/HPF) Urine WBC 0-1 (0-5/HPF) Ur Epithelial Cells RARE (NONE-FEW) Urine Bacteria RARE (NEGATIVE) Result Diagrams: 09/04/19 18:32 09/04/19 18:32 *Q Meaningful Use (ADM) - VTE Risk Assess *Q Each Risk Factor Represents 1 Point: Sepsis Total Score 1 Point Risk Factors: 1 Each Risk Factor Represents 2 Points: Age 60 - 74 Years Total Score 2 Point Risk Factors: 2 - Problem List (1) Severe sepsis SNOMED Code(s): 29526454 ICD Code: A41.9 - SEPSIS, UNSPECIFIED ORGANISM; R65.20 - SEVERE SEPSIS WITHOUT SEPTIC SHOCK Status: Acute Current Visit: Yes (2) Hospital acquired PNA SNOMED Code(s): 966825918 ICD Code: J18.9 - PNEUMONIA, UNSPECIFIED ORGANISM; Y95 - NOSOCOMIAL CONDITION Status: Acute Current Visit: Yes (3) Chronic anticoagulation SNOMED Code(s): 928140729 ICD Code: Z79.01 - DETENTION (CURRENT) USE OF ANTICOAGULANTS Status: Chronic Priority: High Current Visit: No (4) Diabetes mellitus type 2, controlled SNOMED Code(s): 47847264, 099632144 ICD Code: E11.9 - TYPE 2 DIABETES MELLITUS WITHOUT COMPLICATIONS Status: Chronic Priority: High Current Visit: No Qualifiers: Diabetes mellitus senior living insulin use: with senior living use Diabetes mellitus complication status: without complication Qualified Code(s): E11.9 - Type 2 diabetes mellitus without complications; Z79.4 - detention (current) use of insulin Problem List Initiated/Reviewed/Updated: Yes Orders Last 24hrs: Active Orders 24 hr Category Date Time Status Admission Status [Patient Status] [ADT] Stat ADT 09/04/19 19:30 Active EKG Documentation Completion [RC] STAT Care 09/04/19 17:52 Active EKG Documentation Completion [RC] STAT Care 09/04/19 19:59 Active CULTURE BLOOD [BC] Stat Lab 09/04/19 19:10 Received CULTURE BLOOD [BC] Stat Lab 09/04/19 19:15 Received Blood Culture x2 Reflex Set [OM.PC] Stat Oth 09/04/19 18:47 Ordered Assessment/Plan Comment:: A/P: Severe sepsis Hospital acquired PNA Afib s/p ablation JIM DM Cont IV vancomycin and zosyn cont IV fluids f/u on Blood cultures f/u on repeat lactic acid Tachycardia improving after hydration trend creatine, likely prerenal JIM SSI cont anticoagulation cont home meds Diabetic diet DVT ppx with heparin Anticipate 2 midnight stays
[2019-09-04] MEDS ORDERED: Albuterol/Ipratropium 3.0-0.5 MG/3 ML Neb Soln NEB PRN (21:33)
[2019-09-04] MEDS ORDERED: Ondansetron 4 MG/2 ML SDV IVPUSH PRN (21:33)
[2019-09-04] MEDS ORDERED: Acetaminophen 325 MG Tab PO PRN (21:33)
[2019-09-04] MEDS ORDERED: Ondansetron 4 MG Tab.DIS PO PRN (21:33)
[2019-09-04] MEDS ORDERED: Sodium Chloride 0.9% 1,000 ML IV SCH ×2 (21:45→23:00)
[2019-09-04] MEDS ORDERED: atorvaSTATin 40 MG Tab PO SCH (22:15)
[2019-09-04] MEDS: DULoxetine 60 MG Cap PO SCH (22:40)
[2019-09-04] MEDS: Apixaban 5 MG Tab PO SCH (22:40)
[2019-09-04] MEDS: Heparin Sodium 5,000 Units/ML Vial SUBCUT SCH (22:42)
[2019-09-04] MEDS: Insulin Detemir 100 Units/ML 3 ML Pen SUBCUT SCH (22:50)
[2019-09-05] MEDS: Piperacillin/Tazobactam 3.375 GM in Sodium Chloride 0.9% 50 ML IV SCH ×3 (03:54→20:31)
[2019-09-05] MEDS ORDERED: Sodium Chloride 0.9% 10 ML SDV IV SCH (04:15)
[2019-09-05] MEDS ORDERED: Sodium Chloride 0.9% 10 ML SDV IV ONE (04:19)
[2019-09-05] MEDS ORDERED: Sodium Chloride 0.9% 1,000 ML IV ONE ×2 (04:25→04:30)
[2019-09-05] MEDS: Heparin Sodium 5,000 Units/ML Vial SUBCUT SCH ×2 (06:09→14:00)
[2019-09-05 07:14] LABS: BLOOD UREA NITROGEN,BUN 15 mg/dL (7.0-18.0); CARBON DIOXIDE,CO2 21.7 mmol/L (21.0-32.0); CHLORIDE,CL 107 mmol/L (98-107); GLUCOSE RANDOM 175 mg/dL (74-106); POTASSIUM,K 4.1 mmol/L (3.5-5.1); SODIUM,NA 138 mmol/L (136-148)
[2019-09-05] MEDS: Sodium Chloride 0.9% 1,000 ML IV SCH ×2 (07:29→15:09)
[2019-09-05] MEDS ORDERED: Magnesium Sulfate/Water 2 GM in Premix Bag 1 BAG IV ONE (07:35)
[2019-09-05 08:05] LABS: HEMOGLOBIN A1C 8.2 % (4.5-6.2)
[2019-09-05] MEDS: Pregabalin 75 MG Cap PO SCH ×4 (08:11→23:56)
[2019-09-05] MEDS: Furosemide 40 MG Tab PO SCH (08:12)
[2019-09-05] MEDS: Apixaban 5 MG Tab PO SCH ×2 (08:12→20:32)
[2019-09-05] MEDS: Metoprolol Succinate 100 MG Tab.ER PO SCH ×2 (08:12→08:21)
[2019-09-05] MEDS: DULoxetine 60 MG Cap PO SCH (08:12)
[2019-09-05] MEDS: Pantoprazole 40 MG Tab.CR PO SCH (08:12)
[2019-09-05] MEDS ORDERED: Vancomycin 500 MG SDV IV SCH (09:00)
[2019-09-05] MEDS: Insulin Aspart 100 Units/ML 3 ML Pen SUBCUT SCH ×3 (09:43→17:00)
--- NOTE | 2019-09-05 15:08 | PCM.PN ---
<Jaron Potts - Last Filed: 09/05/19 17:06> - General Info Date of Service: 09/05/19 Subjective Update: no acute events overnight. doing better this morning. Not on supplemental oxygen. - Patient Data Vitals - Most Recent: Last Vital Signs Temp 36.2 C 09/05/19 11:44 Pulse 78 09/05/19 11:44 Resp 18 09/05/19 11:44 BP 100/65 09/05/19 11:44 Pulse Ox 92 L 09/05/19 11:44 Weight - Most Recent: 105 kg I&O - Last 24 Hours: Intake & Output 09/05/19 09/05/19 09/05/19 06:59 14:59 22:59 Intake Total 3602 300 Output Total 300 Balance 3302 300 Lab Results Last 24 Hours: Laboratory Results - last 24 hr 09/04/19 09/04/19 09/04/19 Range/Units 18:32 18:32 18:32 WBC 16.29 H (4.0-11.0) K/uL RBC 5.08 (4.50-5.90) M/uL Hgb 15.9 (13.0-17.0) g/dL Hct 47.8 (38.0-50.0) % MCV 94.1 (80.0-98.0) fL MCH 31.3 (27.0-32.0) pg MCHC 33.3 (31.0-37.0) g/dL RDW Std Deviation 52.2 (28.0-62.0) fl RDW Coeff of Dennis 15 (11.0-15.0) % Plt Count 235 (150-400) K/uL MPV 11.60 (7.40-12.00) fL Neut % (Auto) 56.9 (48.0-80.0) % Lymph % (Auto) 32.5 (16.0-40.0) % [place] % (Auto) 8.7 (0.0-15.0) % Eos % (Auto) 1.7 (0.0-7.0) % Baso % (Auto) 0.2 (0.0-1.5) % Neut # (Auto) 9.3 H (1.4-5.7) K/uL Lymph # (Auto) 5.3 H (0.6-2.4) K/uL C[place] # (Auto) 1.4 H (0.0-0.8) K/uL Eos # (Auto) 0.3 (0.0-0.7) K/uL Baso # (Auto) 0.0 (0.0-0.1) K/uL Nucleated RBC % 0.0 /100WBC Nucleated RBCs # 0 K/uL INR Lactate 2.5 H (0.20-2.00) mmol/L Sodium 137 (136-148) mmol/L Potassium 4.4 (3.5-5.1) mmol/L Chloride 102 (98-107) mmol/L Carbon Dioxide 25.4 (21.0-32.0) mmol/L BUN 16 (7.0-18.0) mg/dL Creatinine 1.8 H (0.8-1.3) mg/dL Est Cr Clr Drug Dosing 48.70 mL/min Estimated GFR (MDRD) 38.6 ml/min Glucose 326 H (74-106) mg/dL POC Glucose (60-110) mg/dL Hemoglobin A1c (4.5-6.2) % Calcium 8.5 (8.5-10.1) mg/dL Phosphorus (2.6-4.7) mg/dL Magnesium (1.8-2.4) mg/dL Total Bilirubin 0.2 (0.2-1.0) mg/dL AST 7 L (15-37) IU/L ALT 21 (14-63) IU/L Alkaline Phosphatase 73 (46-116) U/L Troponin I < 0.050 (0.000-0.056) ng/mL Total Protein 7.7 (6.4-8.2) g/dL Albumin 3.8 (3.4-5.0) g/dL Globulin 3.9 (2.6-4.0) g/dL Albumin/Globulin Ratio 1.0 (0.9-1.6) Triglycerides (0-200) mg/dL Cholesterol (50-200) mg/dL LDL Cholesterol, Calc (60-180) mg/dL VLDL Cholesterol (5-55) mg/dL HDL Cholesterol (40-60) mg/dL Cholesterol/HDL Ratio (3.3-6.0) TSH 3rd Generation (0.36-3.74) uIU/mL Urine Color Urine Appearance Urine pH (5.0-8.0) Ur Specific Eden (1.001-1.035) Urine Protein (NEGATIVE) mg/dL Urine Glucose (UA) (NEGATIVE) mg/dL Urine Ketones (NEGATIVE) mg/dL Urine Occult Blood (NEGATIVE) Urine Nitrite (NEGATIVE) Urine Bilirubin (NEGATIVE) Urine Urobilinogen (<2.0) EU/dL Ur Leukocyte Esterase (NEGATIVE) Urine RBC (0-2/HPF) Urine WBC (0-5/HPF) Ur Epithelial Cells (NONE-FEW) Urine Bacteria (NEGATIVE) 09/04/19 09/04/19 09/04/19 Range/Units 18:43 20:34 22:48 WBC (4.0-11.0) K/uL RBC (4.50-5.90) M/uL Hgb (13.0-17.0) g/dL Hct (38.0-50.0) % MCV (80.0-98.0) fL MCH (27.0-32.0) pg MCHC (31.0-37.0) g/dL RDW Std Deviation (28.0-62.0) fl RDW Coeff of Dennis (11.0-15.0) % Plt Count (150-400) K/uL MPV (7.40-12.00) fL Neut % (Auto) (48.0-80.0) % Lymph % (Auto) (16.0-40.0) % C[place] % (Auto) (0.0-15.0) % Eos % (Auto) (0.0-7.0) % Baso % (Auto) (0.0-1.5) % Neut # (Auto) (1.4-5.7) K/uL Lymph # (Auto) (0.6-2.4) K/uL Custer # (Auto) (0.0-0.8) K/uL Eos # (Auto) (0.0-0.7) K/uL Baso # (Auto) (0.0-0.1) K/uL Nucleated RBC % /100WBC Nucleated RBCs # K/uL INR 0.97 Lactate (0.20-2.00) mmol/L Sodium (136-148) mmol/L Potassium (3.5-5.1) mmol/L Chloride (98-107) mmol/L Carbon Dioxide (21.0-32.0) mmol/L BUN (7.0-18.0) mg/dL Creatinine (0.8-1.3) mg/dL Est Cr Clr Drug Dosing mL/min Estimated GFR (MDRD) ml/min Glucose (74-106) mg/dL POC Glucose 158 H (60-110) mg/dL Hemoglobin A1c (4.5-6.2) % Calcium (8.5-10.1) mg/dL Phosphorus (2.6-4.7) mg/dL Magnesium (1.8-2.4) mg/dL Total Bilirubin (0.2-1.0) mg/dL AST (15-37) IU/L ALT (14-63) IU/L Alkaline Phosphatase (46-116) U/L Troponin I (0.000-0.056) ng/mL Total Protein (6.4-8.2) g/dL Albumin (3.4-5.0) g/dL Globulin (2.6-4.0) g/dL Albumin/Globulin Ratio (0.9-1.6) Triglycerides (0-200) mg/dL Cholesterol (50-200) mg/dL LDL Cholesterol, Calc (60-180) mg/dL VLDL Cholesterol (5-55) mg/dL HDL Cholesterol (40-60) mg/dL Cholesterol/HDL Ratio (3.3-6.0) TSH 3rd Generation (0.36-3.74) uIU/mL Urine Color YELLOW Urine Appearance CLEAR Urine pH 6.0 (5.0-8.0) Ur Specific Eden 1.020 (1.001-1.035) Urine Protein TRACE H (NEGATIVE) mg/dL Urine Glucose (UA) >=1000 (NEGATIVE) mg/dL Urine Ketones NEGATIVE (NEGATIVE) mg/dL Urine Occult Blood NEGATIVE (NEGATIVE) Urine Nitrite NEGATIVE (NEGATIVE) Urine Bilirubin NEGATIVE (NEGATIVE) Urine Urobilinogen 0.2 (<2.0) EU/dL Ur Leukocyte Esterase NEGATIVE (NEGATIVE) Urine RBC 0-1 (0-2/HPF) Urine WBC 0-1 (0-5/HPF) Ur Epithelial Cells RARE (NONE-FEW) Urine Bacteria RARE (NEGATIVE) 09/05/19 09/05/19 09/05/19 Range/Units 00:49 00:49 06:13 WBC (4.0-11.0) K/uL RBC (4.50-5.90) M/uL Hgb (13.0-17.0) g/dL Hct (38.0-50.0) % MCV (80.0-98.0) fL MCH (27.0-32.0) pg MCHC (31.0-37.0) g/dL RDW Std Deviation (28.0-62.0) fl RDW Coeff of Dennis (11.0-15.0) % Plt Count (150-400) K/uL MPV (7.40-12.00) fL Neut % (Auto) (48.0-80.0) % Lymph % (Auto) (16.0-40.0) % [place] % (Auto) (0.0-15.0) % Eos % (Auto) (0.0-7.0) % Baso % (Auto) (0.0-1.5) % Neut # (Auto) (1.4-5.7) K/uL Lymph # (Auto) (0.6-2.4) K/uL C[place] # (Auto) (0.0-0.8) K/uL Eos # (Auto) (0.0-0.7) K/uL Baso # (Auto) (0.0-0.1) K/uL Nucleated RBC % /100WBC Nucleated RBCs # K/uL INR Lactate 2.0 (0.20-2.00) mmol/L Sodium (136-148) mmol/L Potassium (3.5-5.1) mmol/L Chloride (98-107) mmol/L Carbon Dioxide (21.0-32.0) mmol/L BUN (7.0-18.0) mg/dL Creatinine (0.8-1.3) mg/dL Est Cr Clr Drug Dosing mL/min Estimated GFR (MDRD) ml/min Glucose (74-106) mg/dL POC Glucose 165 H (60-110) mg/dL Hemoglobin A1c (4.5-6.2) % Calcium (8.5-10.1) mg/dL Phosphorus (2.6-4.7) mg/dL Magnesium (1.8-2.4) mg/dL Total Bilirubin (0.2-1.0) mg/dL AST (15-37) IU/L ALT (14-63) IU/L Alkaline Phosphatase (46-116) U/L Troponin I < 0.050 (0.000-0.056) ng/mL Total Protein (6.4-8.2) g/dL Albumin (3.4-5.0) g/dL Globulin (2.6-4.0) g/dL Albumin/Globulin Ratio (0.9-1.6) Triglycerides (0-200) mg/dL Cholesterol (50-200) mg/dL LDL Cholesterol, Calc (60-180) mg/dL VLDL Cholesterol (5-55) mg/dL HDL Cholesterol (40-60) mg/dL Cholesterol/HDL Ratio (3.3-6.0) TSH 3rd Generation (0.36-3.74) uIU/mL Urine Color Urine Appearance Urine pH (5.0-8.0) Ur Specific [place] (1.001-1.035) Urine Protein (NEGATIVE) mg/dL Urine Glucose (UA) (NEGATIVE) mg/dL Urine Ketones (NEGATIVE) mg/dL Urine Occult Blood (NEGATIVE) Urine Nitrite (NEGATIVE) Urine Bilirubin (NEGATIVE) Urine Urobilinogen (<2.0) EU/dL Ur Leukocyte Esterase (NEGATIVE) Urine RBC (0-2/HPF) Urine WBC (0-5/HPF) Ur Epithelial Cells (NONE-FEW) Urine Bacteria (NEGATIVE) 09/05/19 09/05/19 09/05/19 Range/Units 06:46 06:46 06:46 WBC 10.20 (4.0-11.0) K/uL RBC 4.49 L (4.50-5.90) M/uL Hgb 13.7 (13.0-17.0) g/dL Hct 43.0 (38.0-50.0) % MCV 95.8 (80.0-98.0) fL MCH 30.5 (27.0-32.0) pg MCHC 31.9 (31.0-37.0) g/dL RDW Std Deviation 52.5 (28.0-62.0) fl RDW Coeff of Dennis 15 (11.0-15.0) % Plt Count 201 (150-400) K/uL MPV 10.90 (7.40-12.00) fL Neut % (Auto) 43.8 L (48.0-80.0) % Lymph % (Auto) 43.8 H (16.0-40.0) % [place] % (Auto) 9.2 (0.0-15.0) % Eos % (Auto) 2.9 (0.0-7.0) % Baso % (Auto) 0.3 (0.0-1.5) % Neut # (Auto) 4.5 (1.4-5.7) K/uL Lymph # (Auto) 4.5 H (0.6-2.4) K/uL Custer # (Auto) 0.9 H (0.0-0.8) K/uL Eos # (Auto) 0.3 (0.0-0.7) K/uL Baso # (Auto) 0.0 (0.0-0.1) K/uL Nucleated RBC % 0.0 /100WBC Nucleated RBCs # 0 K/uL INR Lactate (0.20-2.00) mmol/L Sodium 138 (136-148) mmol/L Potassium 4.1 (3.5-5.1) mmol/L Chloride 107 (98-107) mmol/L Carbon Dioxide 21.7 (21.0-32.0) mmol/L BUN 15 (7.0-18.0) mg/dL Creatinine 1.1 (0.8-1.3) mg/dL Est Cr Clr Drug Dosing 79.70 mL/min Estimated GFR (MDRD) > 60.0 ml/min Glucose 175 H (74-106) mg/dL POC Glucose (60-110) mg/dL Hemoglobin A1c (4.5-6.2) % Calcium 7.7 L (8.5-10.1) mg/dL Phosphorus 3.2 (2.6-4.7) mg/dL Magnesium 1.7 L (1.8-2.4) mg/dL Total Bilirubin (0.2-1.0) mg/dL AST (15-37) IU/L ALT (14-63) IU/L Alkaline Phosphatase (46-116) U/L Troponin I < 0.050 (0.000-0.056) ng/mL Total Protein (6.4-8.2) g/dL Albumin (3.4-5.0) g/dL Globulin (2.6-4.0) g/dL Albumin/Globulin Ratio (0.9-1.6) Triglycerides (0-200) mg/dL Cholesterol (50-200) mg/dL LDL Cholesterol, Calc (60-180) mg/dL VLDL Cholesterol (5-55) mg/dL HDL Cholesterol (40-60) mg/dL Cholesterol/HDL Ratio (3.3-6.0) TSH 3rd Generation (0.36-3.74) uIU/mL Urine Color Urine Appearance Urine pH (5.0-8.0) Ur Specific [place] (1.001-1.035) Urine Protein (NEGATIVE) mg/dL Urine Glucose (UA) (NEGATIVE) mg/dL Urine Ketones (NEGATIVE) mg/dL Urine Occult Blood (NEGATIVE) Urine Nitrite (NEGATIVE) Urine Bilirubin (NEGATIVE) Urine Urobilinogen (<2.0) EU/dL Ur Leukocyte Esterase (NEGATIVE) Urine RBC (0-2/HPF) Urine WBC (0-5/HPF) Ur Epithelial Cells (NONE-FEW) Urine Bacteria (NEGATIVE) 09/05/19 09/05/19 09/05/19 Range/Units 06:46 06:46 11:23 WBC (4.0-11.0) K/uL RBC (4.50-5.90) M/uL Hgb (13.0-17.0) g/dL Hct (38.0-50.0) % MCV (80.0-98.0) fL MCH (27.0-32.0) pg MCHC (31.0-37.0) g/dL RDW Std Deviation (28.0-62.0) fl RDW Coeff of Dennis (11.0-15.0) % Plt Count (150-400) K/uL MPV (7.40-12.00) fL Neut % (Auto) (48.0-80.0) % Lymph % (Auto) (16.0-40.0) % [place] % (Auto) (0.0-15.0) % Eos % (Auto) (0.0-7.0) % Baso % (Auto) (0.0-1.5) % Neut # (Auto) (1.4-5.7) K/uL Lymph # (Auto) (0.6-2.4) K/uL [place] # (Auto) (0.0-0.8) K/uL Eos # (Auto) (0.0-0.7) K/uL Baso # (Auto) (0.0-0.1) K/uL Nucleated RBC % /100WBC Nucleated RBCs # K/uL INR Lactate (0.20-2.00) mmol/L Sodium (136-148) mmol/L Potassium (3.5-5.1) mmol/L Chloride (98-107) mmol/L Carbon Dioxide (21.0-32.0) mmol/L BUN (7.0-18.0) mg/dL Creatinine (0.8-1.3) mg/dL Est Cr Clr Drug Dosing mL/min Estimated GFR (MDRD) ml/min Glucose (74-106) mg/dL POC Glucose 231 H (60-110) mg/dL Hemoglobin A1c 8.2 H (4.5-6.2) % Calcium (8.5-10.1) mg/dL Phosphorus (2.6-4.7) mg/dL Magnesium (1.8-2.4) mg/dL Total Bilirubin (0.2-1.0) mg/dL AST (15-37) IU/L ALT (14-63) IU/L Alkaline Phosphatase (46-116) U/L Troponin I (0.000-0.056) ng/mL Total Protein (6.4-8.2) g/dL Albumin (3.4-5.0) g/dL Globulin (2.6-4.0) g/dL Albumin/Globulin Ratio (0.9-1.6) Triglycerides 364 H (0-200) mg/dL Cholesterol 149 (50-200) mg/dL LDL Cholesterol, Calc 53 L (60-180) mg/dL VLDL Cholesterol 72 H (5-55) mg/dL HDL Cholesterol 23 L (40-60) mg/dL Cholesterol/HDL Ratio 6.5 H (3.3-6.0) TSH 3rd Generation 1.70 (0.36-3.74) uIU/mL Urine Color Urine Appearance Urine pH (5.0-8.0) Ur Specific [place] (1.001-1.035) Urine Protein (NEGATIVE) mg/dL Urine Glucose (UA) (NEGATIVE) mg/dL Urine Ketones (NEGATIVE) mg/dL Urine Occult Blood (NEGATIVE) Urine Nitrite (NEGATIVE) Urine Bilirubin (NEGATIVE) Urine Urobilinogen (<2.0) EU/dL Ur Leukocyte Esterase (NEGATIVE) Urine RBC (0-2/HPF) Urine WBC (0-5/HPF) Ur Epithelial Cells (NONE-FEW) Urine Bacteria (NEGATIVE) Payam Results Last 24 Hours: Microbiology 09/05/19 10:00 Gram Stain - Preliminary Sputum - Expectorated Med Orders - Current: Current Medications Acetaminophen (Tylenol) 650 mg PO Q4H PRN PRN Reason: Pain (Mild 1-3)/fever Albuterol/Ipratropium (Duoneb 3.0-0.5 Mg/3 Ml) 3 ml NEB Q4HRRT PRN PRN Reason: Shortness Of Breath/wheezing Apixaban (Eliquis) 5 mg PO BID [facility] Last Admin: 09/05/19 08:12 Dose: 5 mg Atorvastatin Calcium (Lipitor) 80 mg PO BID [facility] Duloxetine HCl (Cymbalta) 60 mg PO DAILY [facility] Last Admin: 09/05/19 08:12 Dose: 60 mg Furosemide (Lasix) 40 mg PO DAILY [facility] Last Admin: 09/05/19 08:12 Dose: 40 mg Heparin Sodium (Porcine) (Heparin Sodium) 5,000 units SUBCUT Q8H [facility] Last Admin: 09/05/19 14:00 Dose: 5,000 units Piperacillin Sod/Tazobactam (Sod 3.375 gm/ Sodium Chloride) 50 mls @ 100 mls/ hr IV Q8H [facility] Last Admin: 09/05/19 12:20 Dose: 100 mls/hr Sodium Chloride (Normal Saline) 1,000 mls @ 125 mls/hr IV ASDIRECTED [facility] Last Admin: 09/05/19 07:29 Dose: 125 mls/hr Vancomycin HCl 1.25 gm/ Sodium (Chloride) 250 mls @ 166.667 mls/hr IV Q12H [facility] Last Admin: 09/05/19 12:55 Dose: 166.667 mls/hr Insulin Aspart (Novolog) 0 unit SUBCUT TIDAC [facility]; Protocol Last Admin: 09/05/19 12:51 Dose: 4 unit Insulin Detemir (Levemir) 16 unit SUBCUT BEDTIME [facility] Last Admin: 09/04/19 22:50 Dose: 16 units Metoprolol Succinate (Toprol Xl) 100 mg PO DAILY [facility] Last Admin: 09/05/19 08:21 Dose: 100 mg Ondansetron HCl (Zofran Odt) 4 mg PO Q4H PRN PRN Reason: nausea, able to take PO Ondansetron HCl (Zofran) 4 mg IVPUSH Q4H PRN PRN Reason: Nausea/Vomiting Pantoprazole Sodium (Protonix) 40 mg PO DAILY [facility] Last Admin: 09/05/19 08:12 Dose: 40 mg Pregabalin (Lyrica) 150 mg PO QID [facility] Last Admin: 09/05/19 12:20 Dose: 150 mg Quetiapine Fumarate (Seroquel) 50 mg PO BEDTIME [facility] Last Admin: 09/05/19 00:23 Dose: 50 mg Trazodone HCl (Trazodone Hcl) 100 mg PO BEDTIME [facility] Last Admin: 09/05/19 00:24 Dose: 100 mg Vancomycin HCl (Pharmacy To Dose - Vancomycin) 1 dose .XX ASDIRECTED [facility] Discontinued Medications Aspirin (Aspirin) 324 mg PO ONETIME ONE Stop: 09/04/19 17:55 Last Admin: 09/04/19 18:07 Dose: 324 mg Sodium Chloride (Normal Saline) 1,000 mls @ 999 mls/hr IV STAT ONE Stop: 09/04/19 19:48 Last Admin: 09/04/19 19:03 Dose: 999 mls/hr Ceftriaxone Sodium/Dextrose 1 (gm/ Premix) 50 mls @ 100 mls/hr IV ONETIME ONE Stop: 09/04/19 19:52 Piperacillin Sod/Tazobactam (Sod 3.375 gm/ Sodium Chloride) 50 mls @ 100 mls/ hr IV ONETIME ONE Stop: 09/04/19 19:52 Last Admin: 09/04/19 19:37 Dose: 100 mls/hr Vancomycin HCl 1 gm/ Sodium (Chloride) 250 mls @ 166 mls/hr IV ONETIME ONE Stop: 09/04/19 20:54 Last Admin: 09/04/19 21:48 Dose: 166 mls/hr Sodium Chloride (Normal Saline) 1,000 mls @ 125 mls/hr IV ASDIRECTED [facility] Last Admin: 09/04/19 21:59 Dose: 125 mls/hr Sodium Chloride (Normal Saline) 1,000 mls @ 999 mls/hr IV BOLUS CHEKO Sodium Chloride (Normal Saline) 1,000 mls @ 999 mls/hr IV STAT ONE Stop: 09/04/19 23:15 Last Admin: 09/04/19 22:08 Dose: 999 mls/hr Vancomycin HCl 1.25 gm/ Sodium (Chloride) 250 mls @ 166.667 mls/hr IV Q12H [facility] Last Admin: 09/05/19 11:55 Dose: Not Given Sodium Chloride (Normal Saline) 1,000 mls @ 1,000 mls/hr IV STAT ONE Stop: 09/05/19 05:29 Last Admin: 09/05/19 04:39 Dose: 1,000 mls/hr Magnesium Sulfate 2 gm/ Premix 50 mls @ 25 mls/hr IV ONETIME ONE Stop: 09/05/19 09:34 Last Admin: 09/05/19 08:05 Dose: 25 mls/hr Morphine Sulfate (Morphine) 2 mg IVPUSH ONETIME ONE Stop: 09/04/19 17:56 Last Admin: 09/04/19 18:08 Dose: 2 mg Morphine Sulfate (Morphine) 2 mg IVPUSH ONETIME ONE Stop: 09/04/19 18:38 Last Admin: 09/04/19 18:46 Dose: 2 mg Nitroglycerin (Nitrostat) 0.4 mg SL Q5M PRN PRN Reason: Chest Pain Last Admin: 09/04/19 18:22 Dose: 0.4 mg Quetiapine Fumarate (Seroquel) 50 mg PO BEDTIME [facility] Sodium Chloride (Normal Saline) 1,000 ml IV STAT CHEKO Trazodone HCl (Trazodone Hcl) 100 mg PO BEDTIME [facility] Vancomycin HCl (Vancomycin) 1,575 mg 15 mg/kg (1575 mg) IV Q12H [facility] - Exam General: Alert, Oriented, Cooperative, No Acute Distress Lungs: Crackles Cardiovascular: Regular Rate, Regular Rhythm GI/Abdominal Exam: Normal Bowel Sounds, Soft, Non-Tender Extremities: Normal Inspection, No Pedal Edema Skin: Warm, Dry - Problem List Review Problem List Initiated/Reviewed/Updated: Yes - Plan Plan:: A: 1. HCAP 2. Hypomagnesemia 3. JIM, resolved 4. PMH Diabetes type 2, Afib s/p ablation on Eliquis P: 1. Will continue with IV antibiotics, vancomycin and zosyn. Will switch to PO tomorrow. replaced magnesium. Continue Eliquis for hx of Afib s/p ablation. dispo: plan to dc tomorrow <Val Romero - Last Filed: 09/05/19 19:54> - Patient Data Vitals - Most Recent: Last Vital Signs Temp 35.8 C 09/05/19 15:00 Pulse 52 L 09/05/19 15:00 Resp 12 09/05/19 15:00 BP 137/88 09/05/19 15:00 Pulse Ox 96 09/05/19 15:00 I&O - Last 24 Hours: Intake & Output 09/05/19 09/05/19 09/05/19 06:59 14:59 22:59 Intake Total 3602 300 4110 Output Total 300 3050 Balance 3302 300 1060 Lab Results Last 24 Hours: Laboratory Results - last 24 hr 09/04/19 09/04/19 09/05/19 Range/Units 20:34 22:48 00:49 WBC (4.0-11.0) K/uL RBC (4.50-5.90) M/uL Hgb (13.0-17.0) g/dL Hct (38.0-50.0) % MCV (80.0-98.0) fL MCH (27.0-32.0) pg MCHC (31.0-37.0) g/dL RDW Std Deviation (28.0-62.0) fl RDW Coeff of Dennis (11.0-15.0) % Plt Count (150-400) K/uL MPV (7.40-12.00) fL Neut % (Auto) (48.0-80.0) % Lymph % (Auto) (16.0-40.0) % [place] % (Auto) (0.0-15.0) % Eos % (Auto) (0.0-7.0) % Baso % (Auto) (0.0-1.5) % Neut # (Auto) (1.4-5.7) K/uL Lymph # (Auto) (0.6-2.4) K/uL [place] # (Auto) (0.0-0.8) K/uL Eos # (Auto) (0.0-0.7) K/uL Baso # (Auto) (0.0-0.1) K/uL Nucleated RBC % /100WBC Nucleated RBCs # K/uL Lactate 2.0 (0.20-2.00) mmol/L Sodium (136-148) mmol/L Potassium (3.5-5.1) mmol/L Chloride (98-107) mmol/L Carbon Dioxide (21.0-32.0) mmol/L BUN (7.0-18.0) mg/dL Creatinine (0.8-1.3) mg/dL Est Cr Clr Drug Dosing mL/min Estimated GFR (MDRD) ml/min Glucose (74-106) mg/dL POC Glucose 158 H (60-110) mg/dL Hemoglobin A1c (4.5-6.2) % Calcium (8.5-10.1) mg/dL Phosphorus (2.6-4.7) mg/dL Magnesium (1.8-2.4) mg/dL Troponin I (0.000-0.056) ng/mL Triglycerides (0-200) mg/dL Cholesterol (50-200) mg/dL LDL Cholesterol, Calc (60-180) mg/dL VLDL Cholesterol (5-55) mg/dL HDL Cholesterol (40-60) mg/dL Cholesterol/HDL Ratio (3.3-6.0) TSH 3rd Generation (0.36-3.74) uIU/mL Urine Color YELLOW Urine Appearance CLEAR Urine pH 6.0 (5.0-8.0) Ur Specific Eden 1.020 (1.001-1.035) Urine Protein TRACE H (NEGATIVE) mg/dL Urine Glucose (UA) >=1000 (NEGATIVE) mg/dL Urine Ketones NEGATIVE (NEGATIVE) mg/dL Urine Occult Blood NEGATIVE (NEGATIVE) Urine Nitrite NEGATIVE (NEGATIVE) Urine Bilirubin NEGATIVE (NEGATIVE) Urine Urobilinogen 0.2 (<2.0) EU/dL Ur Leukocyte Esterase NEGATIVE (NEGATIVE) Urine RBC 0-1 (0-2/HPF) Urine WBC 0-1 (0-5/HPF) Ur Epithelial Cells RARE (NONE-FEW) Urine Bacteria RARE (NEGATIVE) 09/05/19 09/05/19 09/05/19 Range/Units 00:49 06:13 06:46 WBC 10.20 (4.0-11.0) K/uL RBC 4.49 L (4.50-5.90) M/uL Hgb 13.7 (13.0-17.0) g/dL Hct 43.0 (38.0-50.0) % MCV 95.8 (80.0-98.0) fL MCH 30.5 (27.0-32.0) pg MCHC 31.9 (31.0-37.0) g/dL RDW Std Deviation 52.5 (28.0-62.0) fl RDW Coeff of Dennis 15 (11.0-15.0) % Plt Count 201 (150-400) K/uL MPV 10.90 (7.40-12.00) fL Neut % (Auto) 43.8 L (48.0-80.0) % Lymph % (Auto) 43.8 H (16.0-40.0) % Custer % (Auto) 9.2 (0.0-15.0) % Eos % (Auto) 2.9 (0.0-7.0) % Baso % (Auto) 0.3 (0.0-1.5) % Neut # (Auto) 4.5 (1.4-5.7) K/uL Lymph # (Auto) 4.5 H (0.6-2.4) K/uL Custer # (Auto) 0.9 H (0.0-0.8) K/uL Eos # (Auto) 0.3 (0.0-0.7) K/uL Baso # (Auto) 0.0 (0.0-0.1) K/uL Nucleated RBC % 0.0 /100WBC Nucleated RBCs # 0 K/uL Lactate (0.20-2.00) mmol/L Sodium (136-148) mmol/L Potassium (3.5-5.1) mmol/L Chloride (98-107) mmol/L Carbon Dioxide (21.0-32.0) mmol/L BUN (7.0-18.0) mg/dL Creatinine (0.8-1.3) mg/dL Est Cr Clr Drug Dosing mL/min Estimated GFR (MDRD) ml/min Glucose (74-106) mg/dL POC Glucose 165 H (60-110) mg/dL Hemoglobin A1c (4.5-6.2) % Calcium (8.5-10.1) mg/dL Phosphorus (2.6-4.7) mg/dL Magnesium (1.8-2.4) mg/dL Troponin I < 0.050 (0.000-0.056) ng/mL Triglycerides (0-200) mg/dL Cholesterol (50-200) mg/dL LDL Cholesterol, Calc (60-180) mg/dL VLDL Cholesterol (5-55) mg/dL HDL Cholesterol (40-60) mg/dL Cholesterol/HDL Ratio (3.3-6.0) TSH 3rd Generation (0.36-3.74) uIU/mL Urine Color Urine Appearance Urine pH (5.0-8.0) Ur Specific Eden (1.001-1.035) Urine Protein (NEGATIVE) mg/dL Urine Glucose (UA) (NEGATIVE) mg/dL Urine Ketones (NEGATIVE) mg/dL Urine Occult Blood (NEGATIVE) Urine Nitrite (NEGATIVE) Urine Bilirubin (NEGATIVE) Urine Urobilinogen (<2.0) EU/dL Ur Leukocyte Esterase (NEGATIVE) Urine RBC (0-2/HPF) Urine WBC (0-5/HPF) Ur Epithelial Cells (NONE-FEW) Urine Bacteria (NEGATIVE) 09/05/19 09/05/19 09/05/19 Range/Units 06:46 06:46 06:46 WBC (4.0-11.0) K/uL RBC (4.50-5.90) M/uL Hgb (13.0-17.0) g/dL Hct (38.0-50.0) % MCV (80.0-98.0) fL MCH (27.0-32.0) pg MCHC (31.0-37.0) g/dL RDW Std Deviation (28.0-62.0) fl RDW Coeff of Dennis (11.0-15.0) % Plt Count (150-400) K/uL MPV (7.40-12.00) fL Neut % (Auto) (48.0-80.0) % Lymph % (Auto) (16.0-40.0) % Custer % (Auto) (0.0-15.0) % Eos % (Auto) (0.0-7.0) % Baso % (Auto) (0.0-1.5) % Neut # (Auto) (1.4-5.7) K/uL Lymph # (Auto) (0.6-2.4) K/uL Custer # (Auto) (0.0-0.8) K/uL Eos # (Auto) (0.0-0.7) K/uL Baso # (Auto) (0.0-0.1) K/uL Nucleated RBC % /100WBC Nucleated RBCs # K/uL Lactate (0.20-2.00) mmol/L Sodium 138 (136-148) mmol/L Potassium 4.1 (3.5-5.1) mmol/L Chloride 107 (98-107) mmol/L Carbon Dioxide 21.7 (21.0-32.0) mmol/L BUN 15 (7.0-18.0) mg/dL Creatinine 1.1 (0.8-1.3) mg/dL Est Cr Clr Drug Dosing 79.70 mL/min Estimated GFR (MDRD) > 60.0 ml/min Glucose 175 H (74-106) mg/dL POC Glucose (60-110) mg/dL Hemoglobin A1c (4.5-6.2) % Calcium 7.7 L (8.5-10.1) mg/dL Phosphorus 3.2 (2.6-4.7) mg/dL Magnesium 1.7 L (1.8-2.4) mg/dL Troponin I < 0.050 (0.000-0.056) ng/mL Triglycerides 364 H (0-200) mg/dL Cholesterol 149 (50-200) mg/dL LDL Cholesterol, Calc 53 L (60-180) mg/dL VLDL Cholesterol 72 H (5-55) mg/dL HDL Cholesterol 23 L (40-60) mg/dL Cholesterol/HDL Ratio 6.5 H (3.3-6.0) TSH 3rd Generation 1.70 (0.36-3.74) uIU/mL Urine Color Urine Appearance Urine pH (5.0-8.0) Ur Specific Eden (1.001-1.035) Urine Protein (NEGATIVE) mg/dL Urine Glucose (UA) (NEGATIVE) mg/dL Urine Ketones (NEGATIVE) mg/dL Urine Occult Blood (NEGATIVE) Urine Nitrite (NEGATIVE) Urine Bilirubin (NEGATIVE) Urine Urobilinogen (<2.0) EU/dL Ur Leukocyte Esterase (NEGATIVE) Urine RBC (0-2/HPF) Urine WBC (0-5/HPF) Ur Epithelial Cells (NONE-FEW) Urine Bacteria (NEGATIVE) 09/05/19 09/05/19 09/05/19 Range/Units 06:46 11:23 16:53 WBC (4.0-11.0) K/uL RBC (4.50-5.90) M/uL Hgb (13.0-17.0) g/dL Hct (38.0-50.0) % MCV (80.0-98.0) fL MCH (27.0-32.0) pg MCHC (31.0-37.0) g/dL RDW Std Deviation (28.0-62.0) fl RDW Coeff of Dennis (11.0-15.0) % Plt Count (150-400) K/uL MPV (7.40-12.00) fL Neut % (Auto) (48.0-80.0) % Lymph % (Auto) (16.0-40.0) % Custer % (Auto) (0.0-15.0) % Eos % (Auto) (0.0-7.0) % Baso % (Auto) (0.0-1.5) % Neut # (Auto) (1.4-5.7) K/uL Lymph # (Auto) (0.6-2.4) K/uL Custer # (Auto) (0.0-0.8) K/uL Eos # (Auto) (0.0-0.7) K/uL Baso # (Auto) (0.0-0.1) K/uL Nucleated RBC % /100WBC Nucleated RBCs # K/uL Lactate (0.20-2.00) mmol/L Sodium (136-148) mmol/L Potassium (3.5-5.1) mmol/L Chloride (98-107) mmol/L Carbon Dioxide (21.0-32.0) mmol/L BUN (7.0-18.0) mg/dL Creatinine (0.8-1.3) mg/dL Est Cr Clr Drug Dosing mL/min Estimated GFR (MDRD) ml/min Glucose (74-106) mg/dL POC Glucose 231 H 216 H (60-110) mg/dL Hemoglobin A1c 8.2 H (4.5-6.2) % Calcium (8.5-10.1) mg/dL Phosphorus (2.6-4.7) mg/dL Magnesium (1.8-2.4) mg/dL Troponin I (0.000-0.056) ng/mL Triglycerides (0-200) mg/dL Cholesterol (50-200) mg/dL LDL Cholesterol, Calc (60-180) mg/dL VLDL Cholesterol (5-55) mg/dL HDL Cholesterol (40-60) mg/dL Cholesterol/HDL Ratio (3.3-6.0) TSH 3rd Generation (0.36-3.74) uIU/mL Urine Color Urine Appearance Urine pH (5.0-8.0) Ur Specific [place] (1.001-1.035) Urine Protein (NEGATIVE) mg/dL Urine Glucose (UA) (NEGATIVE) mg/dL Urine Ketones (NEGATIVE) mg/dL Urine Occult Blood (NEGATIVE) Urine Nitrite (NEGATIVE) Urine Bilirubin (NEGATIVE) Urine Urobilinogen (<2.0) EU/dL Ur Leukocyte Esterase (NEGATIVE) Urine RBC (0-2/HPF) Urine WBC (0-5/HPF) Ur Epithelial Cells (NONE-FEW) Urine Bacteria (NEGATIVE) Payam Results Last 24 Hours: Microbiology 09/04/19 19:15 Aerobic Blood Culture - Preliminary Blood - Venous - Lab Draw NO GROWTH AFTER 1 DAY Anaerobic Blood Culture - Preliminary NO GROWTH AFTER 1 DAY 09/04/19 19:10 Aerobic Blood Culture - Preliminary Blood - Venous NO GROWTH AFTER 1 DAY Anaerobic Blood Culture - Preliminary NO GROWTH AFTER 1 DAY 09/05/19 10:00 Gram Stain - Preliminary Sputum - Expectorated Med Orders - Current: Current Medications Acetaminophen (Tylenol) 650 mg PO Q4H PRN PRN Reason: Pain (Mild 1-3)/fever Albuterol/Ipratropium (Duoneb 3.0-0.5 Mg/3 Ml) 3 ml NEB Q4HRRT PRN PRN Reason: Shortness Of Breath/wheezing Apixaban (Eliquis) 5 mg PO BID [facility] Last Admin: 09/05/19 08:12 Dose: 5 mg Atorvastatin Calcium (Lipitor) 80 mg PO BID [facility] Duloxetine HCl (Cymbalta) 60 mg PO DAILY [facility] Last Admin: 09/05/19 08:12 Dose: 60 mg Furosemide (Lasix) 40 mg PO DAILY [facility] Last Admin: 09/05/19 08:12 Dose: 40 mg Piperacillin Sod/Tazobactam (Sod 3.375 gm/ Sodium Chloride) 50 mls @ 100 mls/ hr IV Q8H [facility] Last Admin: 09/05/19 12:20 Dose: 100 mls/hr Vancomycin HCl 1.25 gm/ Sodium (Chloride) 250 mls @ 166.667 mls/hr IV Q12H [facility] Last Admin: 09/05/19 12:55 Dose: 166.667 mls/hr Insulin Aspart (Novolog) 0 unit SUBCUT TIDAC [facility]; Protocol Last Admin: 09/05/19 17:00 Dose: 4 unit Insulin Detemir (Levemir) 16 unit SUBCUT BEDTIME [facility] Last Admin: 09/04/19 22:50 Dose: 16 units Metoprolol Succinate (Toprol Xl) 100 mg PO DAILY [facility] Last Admin: 09/05/19 08:21 Dose: 100 mg Ondansetron HCl (Zofran Odt) 4 mg PO Q4H PRN PRN Reason: nausea, able to take PO Ondansetron HCl (Zofran) 4 mg IVPUSH Q4H PRN PRN Reason: Nausea/Vomiting Pantoprazole Sodium (Protonix) 40 mg PO DAILY [facility] Last Admin: 09/05/19 08:12 Dose: 40 mg Pregabalin (Lyrica) 150 mg PO QID [facility] Last Admin: 09/05/19 17:17 Dose: 150 mg Quetiapine Fumarate (Seroquel) 50 mg PO BEDTIME [facility] Last Admin: 09/05/19 00:23 Dose: 50 mg Trazodone HCl (Trazodone Hcl) 100 mg PO BEDTIME [facility] Last Admin: 09/05/19 00:24 Dose: 100 mg Vancomycin HCl (Pharmacy To Dose - Vancomycin) 1 dose .XX ASDIRECTED [facility] Discontinued Medications Aspirin (Aspirin) 324 mg PO ONETIME ONE Stop: 09/04/19 17:55 Last Admin: 09/04/19 18:07 Dose: 324 mg Heparin Sodium (Porcine) (Heparin Sodium) 5,000 units SUBCUT Q8H [facility] Last Admin: 09/05/19 14:00 Dose: 5,000 units Sodium Chloride (Normal Saline) 1,000 mls @ 999 mls/hr IV STAT ONE Stop: 09/04/19 19:48 Last Admin: 09/04/19 19:03 Dose: 999 mls/hr Ceftriaxone Sodium/Dextrose 1 (gm/ Premix) 50 mls @ 100 mls/hr IV ONETIME ONE Stop: 09/04/19 19:52 Piperacillin Sod/Tazobactam (Sod 3.375 gm/ Sodium Chloride) 50 mls @ 100 mls/ hr IV ONETIME ONE Stop: 09/04/19 19:52 Last Admin: 09/04/19 19:37 Dose: 100 mls/hr Vancomycin HCl 1 gm/ Sodium (Chloride) 250 mls @ 166 mls/hr IV ONETIME ONE Stop: 09/04/19 20:54 Last Admin: 09/04/19 21:48 Dose: 166 mls/hr Sodium Chloride (Normal Saline) 1,000 mls @ 125 mls/hr IV ASDIRECTED [facility] Last Admin: 09/04/19 21:59 Dose: 125 mls/hr Sodium Chloride (Normal Saline) 1,000 mls @ 999 mls/hr IV BOLUS [facility] Sodium Chloride (Normal Saline) 1,000 mls @ 999 mls/hr IV STAT ONE Stop: 09/04/19 23:15 Last Admin: 09/04/19 22:08 Dose: 999 mls/hr Vancomycin HCl 1.25 gm/ Sodium (Chloride) 250 mls @ 166.667 mls/hr IV Q12H [facility] Last Admin: 09/05/19 11:55 Dose: Not Given Sodium Chloride (Normal Saline) 1,000 mls @ 1,000 mls/hr IV STAT ONE Stop: 09/05/19 05:29 Last Admin: 09/05/19 04:39 Dose: 1,000 mls/hr Sodium Chloride (Normal Saline) 1,000 mls @ 125 mls/hr IV ASDIRECTED [facility] Last Admin: 09/05/19 15:09 Dose: 125 mls/hr Magnesium Sulfate 2 gm/ Premix 50 mls @ 25 mls/hr IV ONETIME ONE Stop: 09/05/19 09:34 Last Admin: 09/05/19 08:05 Dose: 25 mls/hr Morphine Sulfate (Morphine) 2 mg IVPUSH ONETIME ONE Stop: 09/04/19 17:56 Last Admin: 09/04/19 18:08 Dose: 2 mg Morphine Sulfate (Morphine) 2 mg IVPUSH ONETIME ONE Stop: 09/04/19 18:38 Last Admin: 09/04/19 18:46 Dose: 2 mg Nitroglycerin (Nitrostat) 0.4 mg SL Q5M PRN PRN Reason: Chest Pain Last Admin: 09/04/19 18:22 Dose: 0.4 mg Quetiapine Fumarate (Seroquel) 50 mg PO BEDTIME [facility] Sodium Chloride (Normal Saline) 1,000 ml IV STAT [facility] Trazodone HCl (Trazodone Hcl) 100 mg PO BEDTIME [facility] Vancomycin HCl (Vancomycin) 1,575 mg 15 mg/kg (1575 mg) IV Q12H [facility] - Problem List & Annotations (1) Severe sepsis SNOMED Code(s): 38313776 Code(s): A41.9 - SEPSIS, UNSPECIFIED ORGANISM; R65.20 - SEVERE SEPSIS WITHOUT SEPTIC SHOCK Status: Acute Current Visit: Yes (2) Hospital acquired PNA SNOMED Code(s): 747698940 Code(s): J18.9 - PNEUMONIA, UNSPECIFIED ORGANISM; Y95 - NOSOCOMIAL CONDITION Status: Acute Current Visit: Yes (3) Chronic anticoagulation SNOMED Code(s): 860947845 Code(s): Z79.01 - 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) USE OF ANTICOAGULANTS Status: Chronic Priority: High Current Visit: No (4) Diabetes mellitus type 2, controlled SNOMED Code(s): 76971200, 502202064 Code(s): E11.9 - TYPE 2 DIABETES MELLITUS WITHOUT COMPLICATIONS Status: Chronic Priority: High Current Visit: No Qualifiers: Diabetes mellitus group home insulin use: with terminal makeup operator use Diabetes mellitus complication status: without complication Qualified Code(s): E11.9 - Type 2 diabetes mellitus without complications; Z79.4 - senior living (current) use of insulin - My Orders Last 24 Hours: My Active Orders 09/04/19 20:06 Telemetry Monitoring [Cardiac Monitoring] [RC] Q8H 09/04/19 21:33 Ambulate [RC] ASDIRECTED Blood Glucose Check, Bedside [] TIDMEALS Intake and Output [RC] Q12H Oxygen Therapy [RC] PRN Pulse Oximetry [RC] PRN VTE/DVT Education [RC] PER UNIT ROUTINE Vital Signs [RC] Q4H Acetaminophen [Tylenol] 650 mg PO Q4H PRN Albuterol/Ipratropium [DuoNeb 3.0-0.5 MG/3 ML] 3 ml NEB Q4HRRT PRN Ondansetron [Zofran ODT] 4 mg PO Q4H PRN Ondansetron [Zofran] 4 mg IVPUSH Q4H PRN Resuscitation Status Routine 09/04/19 21:34 Ambulate [RC] PER UNIT ROUTINE 09/04/19 21:38 RT Aerosol Therapy [RC] ASDIRECTED 09/04/19 21:45 Pharmacy to Dose - Vancomycin 1 dose .XX ASDIRECTED 09/04/19 22:08 Insulin Detemir [Levemir] 16 unit SUBCUT BEDTIME 09/04/19 22:15 Apixaban [Eliquis] 5 mg PO BID DULoxetine [Cymbalta] 60 mg PO DAILY atorvaSTATin [Lipitor] 80 mg PO BID 09/04/19 23:39 QUEtiapine [SEROquel] 50 mg PO BEDTIME traZODone HCl 100 mg PO BEDTIME 09/05/19 04:00 Piperacillin/Tazobactam [Piperacil-Tazobact] 3.375 gm Sodium Chloride 0.9% [ Normal Saline] 50 ml IV Q8H 09/05/19 07:30 Insulin Aspart [NovoLOG] See Protocol SUBCUT TIDAC 09/05/19 09:00 Furosemide [Lasix] 40 mg PO DAILY Metoprolol Succinate [Toprol XL] 100 mg PO DAILY Pantoprazole [ProTONIX] 40 mg PO DAILY Pregabalin [Lyrica] 150 mg PO QID 09/05/19 10:00 CULTURE SPUTUM + SMEAR [RM] Stat 09/05/19 12:00 Vancomycin 1.25 gm Sodium Chloride 0.9% [Normal Saline (AdvBag)] 250 ml IV Q12H 09/05/19 Breakfast [employer] Diet [DIET] - Plan Plan:: Last night Patient didn't receive his 3rd bolus within 3 hours as patient was showing signs of volume overload so 3rd bolus was held at that time, as his vitals were stable and lactate had improved. I have reviewed the residents note and agree with documentation unless otherwise specified in my note.
[2019-09-05] MEDS: Insulin Detemir 100 Units/ML 3 ML Pen SUBCUT SCH (20:34)
[2019-09-06] MEDS: Piperacillin/Tazobactam 3.375 GM in Sodium Chloride 0.9% 50 ML IV SCH (03:48)
[2019-09-06] MEDS: Pregabalin 75 MG Cap PO SCH (05:37)
[2019-09-06 06:34] LABS: BLOOD UREA NITROGEN,BUN 16 mg/dL (7.0-18.0); CARBON DIOXIDE,CO2 26.5 mmol/L (21.0-32.0); CHLORIDE,CL 104 mmol/L (98-107); GLUCOSE RANDOM 187 mg/dL (74-106); POTASSIUM,K 4.2 mmol/L (3.5-5.1); SODIUM,NA 138 mmol/L (136-148)
[2019-09-06] MEDS ORDERED: Magnesium Sulfate/Water 2 GM in Premix Bag 1 BAG IV ONE (08:11)
[2019-09-06] MEDS: Insulin Aspart 100 Units/ML 3 ML Pen SUBCUT SCH (09:06)
[2019-09-06] MEDS: Pantoprazole 40 MG Tab.CR PO SCH (09:21)
[2019-09-06] MEDS: Furosemide 40 MG Tab PO SCH (09:21)
[2019-09-06] MEDS: Metoprolol Succinate 100 MG Tab.ER PO SCH (09:21)
[2019-09-06] MEDS: Apixaban 5 MG Tab PO SCH (09:21)
[2019-09-06] MEDS: DULoxetine 60 MG Cap PO SCH (09:22)
--- NOTE | 2019-09-17 20:36 | PCM.DCSUM1 ---
Discharge Summary - Hospital Course Free Text/Narrative:: Patient is a 59-year-old male with PMH of afib s/p ablation, DM who presented to the ED with concern of chest pain over the last 2 hours. Patient is on chronic anticoagulation, Patient was hospitalized after ablation 2 weeks ago. He states that his chest pain today feels similar as to when he had atrial fibrillation. C/o having some nausea. but no vomiting and mild cough. Patient denied any other symptoms or concerns. In the ER, EKG showed sinus tachycardia, High WBC count, CXR showed findings concerning for Pneumonia. Patient was being admitted for management of health care associated pneumonia and sepsis. Patient was treated with IV antibiotics, and eventually his was transitioned to oral antibiotics and was medically stable for d/c. - Discharge Data Discharge Date: 09/06/19 Discharge Disposition: Home, Self-Care 01 Condition: Good - Referral to Home Health Primary Care Physician: PCP Unobtainable - Discharge Diagnosis/Problem(s) (1) Severe sepsis SNOMED Code(s): 63563245 ICD Code: A41.9 - SEPSIS, UNSPECIFIED ORGANISM; R65.20 - SEVERE SEPSIS WITHOUT SEPTIC SHOCK Status: Acute (2) Hospital acquired PNA SNOMED Code(s): 263233827 ICD Code: J18.9 - PNEUMONIA, UNSPECIFIED ORGANISM; Y95 - NOSOCOMIAL CONDITION Status: Acute (3) Chronic anticoagulation SNOMED Code(s): 161569591 ICD Code: Z79.01 - ASSISTED (CURRENT) USE OF ANTICOAGULANTS Status: Chronic Priority: High (4) Diabetes mellitus type 2, controlled SNOMED Code(s): 35322958, 111102316 ICD Code: E11.9 - TYPE 2 DIABETES MELLITUS WITHOUT COMPLICATIONS Status: Chronic Priority: High Qualifiers: Diabetes mellitus long-term insulin use: with terminal gauger supervisor use Diabetes mellitus complication status: without complication Qualified Code(s): E11.9 - Type 2 diabetes mellitus without complications; Z79.4 - skilled nursing (current) use of insulin - Patient Instructions Diet: Diabetic Diet Activity: As Tolerated Notify Provider of: Fever, Increased Pain, Nausea and/or Vomiting - Discharge Plan Prescriptions/Med Rec: Amoxicillin/Clavulanate K [Augmentin 875-125 MG] 1 tab PO BID 5 Days #10 tablet Azithromycin 250 mg PO DAILY 5 Days #5 tablet Home Medications: Home Meds Apixaban [Eliquis] 5 mg PO BID 04/20/19 [History] DULoxetine HCl [Duloxetine HCl] 1 tab PO DAILY 04/20/19 [History] metFORMIN [Glucophage] 1 tab PO BID 04/20/19 [History] Metoprolol Succinate 100 mg PO DAILY 07/22/19 [History] QUEtiapine [SEROquel] 50 mg PO BEDTIME 07/22/19 [History] atorvaSTATin [Lipitor] 80 mg PO DAILY 08/07/19 [History] Ranitidine [Zantac] 150 mg PO BID PRN MDD Acid Volumetric Weigher 09/05/19 [History] Amoxicillin/Clavulanate K [Augmentin 875-125 MG] 1 tab PO BID 5 Days #10 tablet 09/06/19 [Rx] Azithromycin 250 mg PO DAILY 5 Days #5 tablet 09/06/19 [Rx] Patient Handouts: Amoxicillin; Clavulanic Acid tablets, Chest Wall Pain, Easy- to-Read, Azithromycin tablets, Community-Acquired Pneumonia, Adult, [id number] Referrals: Siddharth Randolph MD [Physician] - 09/17/19 9:30 am - Discharge Summary/Plan Comment DC Time >30 min.: No - Patient Data Vitals - Most Recent: Last Vital Signs Temp 36.2 C 09/06/19 08:08 Pulse 75 09/06/19 09:21 Resp 18 09/06/19 08:08 BP 112/77 09/06/19 09:21 Pulse Ox 94 L 09/06/19 08:08 Weight - Most Recent: 105 kg Med Orders - Current: Current Medications Discontinued Medications Acetaminophen (Tylenol) 650 mg PO Q4H PRN PRN Reason: Pain (Mild 1-3)/fever Albuterol/Ipratropium (Duoneb 3.0-0.5 Mg/3 Ml) 3 ml NEB Q4HRRT PRN PRN Reason: Shortness Of Breath/wheezing Apixaban (Eliquis) 5 mg PO BID [facility] Last Admin: 09/06/19 09:21 Dose: 5 mg Aspirin (Aspirin) 324 mg PO ONETIME ONE Stop: 09/04/19 17:55 Last Admin: 09/04/19 18:07 Dose: 324 mg Atorvastatin Calcium (Lipitor) 80 mg PO BID [facility] Duloxetine HCl (Cymbalta) 60 mg PO DAILY [facility] Last Admin: 09/06/19 09:22 Dose: 60 mg Furosemide (Lasix) 40 mg PO DAILY [facility] Last Admin: 09/06/19 09:21 Dose: 40 mg Heparin Sodium (Porcine) (Heparin Sodium) 5,000 units SUBCUT Q8H [facility] Last Admin: 09/05/19 14:00 Dose: 5,000 units Sodium Chloride (Normal Saline) 1,000 mls @ 999 mls/hr IV STAT ONE Stop: 09/04/19 19:48 Last Admin: 09/04/19 19:03 Dose: 999 mls/hr Ceftriaxone Sodium/Dextrose 1 (gm/ Premix) 50 mls @ 100 mls/hr IV ONETIME ONE Stop: 09/04/19 19:52 Piperacillin Sod/Tazobactam (Sod 3.375 gm/ Sodium Chloride) 50 mls @ 100 mls/ hr IV ONETIME ONE Stop: 09/04/19 19:52 Last Admin: 09/04/19 19:37 Dose: 100 mls/hr Vancomycin HCl 1 gm/ Sodium (Chloride) 250 mls @ 166 mls/hr IV ONETIME ONE Stop: 09/04/19 20:54 Last Admin: 09/04/19 21:48 Dose: 166 mls/hr Sodium Chloride (Normal Saline) 1,000 mls @ 125 mls/hr IV ASDIRECTED [facility] Last Admin: 09/04/19 21:59 Dose: 125 mls/hr Sodium Chloride (Normal Saline) 1,000 mls @ 999 mls/hr IV BOLUS [facility] Piperacillin Sod/Tazobactam (Sod 3.375 gm/ Sodium Chloride) 50 mls @ 100 mls/ hr IV Q8H [facility] Last Admin: 09/06/19 03:48 Dose: 100 mls/hr Sodium Chloride (Normal Saline) 1,000 mls @ 999 mls/hr IV STAT ONE Stop: 09/04/19 23:15 Last Admin: 09/04/19 22:08 Dose: 999 mls/hr Vancomycin HCl 1.25 gm/ Sodium (Chloride) 250 mls @ 166.667 mls/hr IV Q12H [facility] Last Admin: 09/05/19 11:55 Dose: Not Given Sodium Chloride (Normal Saline) 1,000 mls @ 1,000 mls/hr IV STAT ONE Stop: 09/05/19 05:29 Last Admin: 09/05/19 04:39 Dose: 1,000 mls/hr Sodium Chloride (Normal Saline) 1,000 mls @ 125 mls/hr IV ASDIRECTED [facility] Last Admin: 09/05/19 15:09 Dose: 125 mls/hr Magnesium Sulfate 2 gm/ Premix 50 mls @ 25 mls/hr IV ONETIME ONE Stop: 09/05/19 09:34 Last Admin: 09/05/19 08:05 Dose: 25 mls/hr Vancomycin HCl 1.25 gm/ Sodium (Chloride) 250 mls @ 166.667 mls/hr IV Q12H [facility] Last Admin: 09/05/19 23:56 Dose: 166.667 mls/hr Magnesium Sulfate 2 gm/ Premix 50 mls @ 25 mls/hr IV ONETIME ONE Stop: 09/06/19 10:10 Last Admin: 09/06/19 09:10 Dose: 25 mls/hr Insulin Aspart (Novolog) 0 unit SUBCUT TIDAC [facility]; Protocol Last Admin: 09/06/19 09:06 Dose: 2 unit Insulin Detemir (Levemir) 16 unit SUBCUT BEDTIME [facility] Last Admin: 09/05/19 20:34 Dose: 16 units Metoprolol Succinate (Toprol Xl) 100 mg PO DAILY [facility] Last Admin: 09/06/19 09:21 Dose: 100 mg Morphine Sulfate (Morphine) 2 mg IVPUSH ONETIME ONE Stop: 09/04/19 17:56 Last Admin: 09/04/19 18:08 Dose: 2 mg Morphine Sulfate (Morphine) 2 mg IVPUSH ONETIME ONE Stop: 09/04/19 18:38 Last Admin: 09/04/19 18:46 Dose: 2 mg Nitroglycerin (Nitrostat) 0.4 mg SL Q5M PRN PRN Reason: Chest Pain Last Admin: 09/04/19 18:22 Dose: 0.4 mg Ondansetron HCl (Zofran Odt) 4 mg PO Q4H PRN PRN Reason: nausea, able to take PO Ondansetron HCl (Zofran) 4 mg IVPUSH Q4H PRN PRN Reason: Nausea/Vomiting Pantoprazole Sodium (Protonix) 40 mg PO DAILY [facility] Last Admin: 09/06/19 09:21 Dose: 40 mg Pregabalin (Lyrica) 150 mg PO QID [facility] Last Admin: 09/06/19 05:37 Dose: 150 mg Quetiapine Fumarate (Seroquel) 50 mg PO BEDTIME CHEKO Quetiapine Fumarate (Seroquel) 50 mg PO BEDTIME [facility] Last Admin: 09/05/19 20:33 Dose: 50 mg Sodium Chloride (Normal Saline) 1,000 ml IV STAT CHEKO Trazodone HCl (Trazodone Hcl) 100 mg PO BEDTIME [facility] Trazodone HCl (Trazodone Hcl) 100 mg PO BEDTIME [facility] Last Admin: 09/05/19 21:50 Dose: 100 mg Vancomycin HCl (Pharmacy To Dose - Vancomycin) 1 dose .XX ASDIRECTED [facility] Vancomycin HCl (Vancomycin) 1,575 mg 15 mg/kg (1575 mg) IV Q12H [facility]
== END 2019-09-06 13:05 | disposition home or self-care (01) | DRG 871 ==
LOC: MW.ED 17:46 → MW.MS 19:30 → OBSVTOIN 19:30
PROVIDERS: ADMIT Student in an Organized Health Care Education/Training Program; ATTEND Student in an Organized Health Care Education/Training Program
DX: A41.9 Sepsis, unspecified organism (principal); R07.9 Chest pain, unspecified; J18.9 Pneumonia, unspecified organism; J44.0 Chronic obstructive pulmonary disease with (acute) lower respiratory infection; N17.9 Acute kidney failure, unspecified; R65.20 Severe sepsis without septic shock; I48.91 Unspecified atrial fibrillation; I25.10 Atherosclerotic heart disease of native coronary artery without angina pectoris; I10 Essential (primary) hypertension; K21.9 Gastro-esophageal reflux disease without esophagitis; G89.29 Other chronic pain; M54.9 Dorsalgia, unspecified; F41.9 Anxiety disorder, unspecified; F32.9 Major depressive disorder, single episode, unspecified; E11.9 Type 2 diabetes mellitus without complications; F17.210 Nicotine dependence, cigarettes, uncomplicated; Z86.73 Personal history of transient ischemic attack (TIA), and cerebral infarction without residual deficits; Z79.899 Other long term (current) drug therapy; Z79.4 Long term (current) use of insulin; Z79.01 Long term (current) use of anticoagulants; Z91.030 Bee allergy status; Z86.718 Personal history of other venous thrombosis and embolism
CPT/HCPCS: 71045; 80053; 83605; 84484; 85025; 85610; 87040 ×2; 93005 ×2; 96361; 96375; 96376; 99285; A9270 ×4; J2270 ×2; J7040; 36415; 80048; 80061; 80202; 81001; 82962; 83036; 83735; 84100; 84443; 87070; 87205; 96365; 96374; 99284; J1644; J1815-GY; J2543; J3370; J3475; J7030; J7050

== ENCOUNTER 2019-09-28 18:53 | Observation (INO) | payer MEDICARE ==
[2019-09-28] MEDS ORDERED: Sodium Chloride 0.9% 10 ML Syringe FLUSH PRN (18:55)
[2019-09-28] MEDS ORDERED: Sodium Chloride 0.9% 2.5 ML Syringe FLUSH PRN (18:55)
[2019-09-28] MEDS ORDERED: Sodium Chloride 0.9% 10 ML SDV IV PRN (18:55)
--- NOTE | 2019-09-28 19:19 | EDM.PDOC ---
ED HPI GENERAL MEDICAL PROBLEM - General Chief Complaint: Neuro Symptoms/Deficits Stated Complaint: STROKE SYMPTOMS Time Seen by Provider: 09/28/19 19:09 - History of Present Illness INITIAL COMMENTS - FREE TEXT/NARRATIVE: HISTORY AND PHYSICAL: History of present illness: Patient is a 59-year-old white male with history of diabetes, hypertension and chronic intermittent atrial fibrillation who presents with a concern of right- sided numbness that began 24 hours prior to arrival on arrival here patient equivocates regarding intermittent chest pain that is vaguely described without associated palpitations shortness of breath diaphoresis nausea or vomiting his NIH stroke scale was 1 upon arrival for right lower extremity Drift Review of systems: As per history of present illness and below otherwise all systems reviewed and negative. Past medical history: As per history of present illness and as reviewed below otherwise noncontributory. Surgical history: As per history of present illness and as reviewed below otherwise noncontributory. Social history: No reported history of drug or alcohol abuse. Family history: As per history of present illness and as reviewed below otherwise noncontributory. Physical exam: HEENT: Atraumatic, normocephalic, pupils reactive, negative for conjunctival pallor or scleral icterus, mucous membranes moist, throat clear, neck supple, nontender, trachea midline. Lungs: Clear to auscultation, breath sounds equal bilaterally, chest nontender. Heart: S1S2, regular, negative for clicks, rubs, or JVD. Abdomen: Soft, nondistended, nontender. Negative for masses or hepatosplenomegaly. Negative for costovertebral tenderness. Pelvis: Stable nontender. Genitourinary: Deferred. Rectal: Deferred. Extremities: Atraumatic, negative for cords or calf pain. Neurovascular unremarkable. Neuro: Awake, alert, oriented. Cranial nerves II through XII unremarkable. Cerebellum unremarkable. Motor and sensory unremarkable throughout. Exam nonfocal. Diagnostics: CBC CMP troponin PT/INR chest x-ray EKG CT brain UA UDS Therapeutics: The O2 monitor Impression: #1 rule out CVA #2 history of intermittent atrial fibrillation #3 atypical chest pain #4 history of diabetes #5 history of hypertension Definitive disposition and diagnosis as appropriate pending reevaluation and review of above. Chest Pain Score (Numeric/FACES): 7 - Related Data Allergies Allergy/AdvReac Type Severity Reaction Status Date / Time bee venom protein (honey bee) Allergy Anaphylactic Verified 09/28/19 18:56 Shock Home Meds: Home Meds Apixaban [Eliquis] 200 mg PO BID 04/20/19 [History] DULoxetine HCl [Duloxetine HCl] 1 tab PO DAILY 04/20/19 [History] metFORMIN [Glucophage] 1 tab PO BID 04/20/19 [History] Metoprolol Succinate 100 mg PO DAILY 07/22/19 [History] QUEtiapine [SEROquel] 50 mg PO BEDTIME 07/22/19 [History] atorvaSTATin [Lipitor] 80 mg PO DAILY 08/07/19 [History] Ranitidine [Zantac] 150 mg PO BID PRN MDD Acid Air Valve Repairer 09/05/19 [History] Amoxicillin/Clavulanate K [Augmentin 875-125 MG] 1 tab PO BID 5 Days #10 tablet 09/06/19 [Rx] Azithromycin 250 mg PO DAILY 5 Days #5 tablet 09/06/19 [Rx] Past Medical History HEENT History: Reports: None Other HEENT History: upper and lower dentures Cardiovascular History: Reports: Arrhythmia, Blood Clots/VTE/DVT, CAD, Hypertension Other Cardiovascular History: Afib w/ rvr Respiratory History: Reports: COPD Gastrointestinal History: Reports: Bowel Obstruction, GERD, Other (See Below) Other Gastrointestinal History: Intestinal rupture Genitourinary History: Reports: None Musculoskeletal History: Reports: Back Pain, Chronic, Fracture Neurological History: Reports: CVA Other Neuro History: 3 strokes in the last 1.5 years Psychiatric History: Reports: Anxiety, Depression Endocrine/Metabolic History: Reports: Diabetes, Type II Hematologic History: Reports: None Immunologic History: Reports: None Oncologic (Cancer) History: Reports: None Dermatologic History: Reports: None - Infectious Disease History Infectious Disease History: Reports: Chicken Pox - Past Surgical History Head Surgeries/Procedures: Reports: None Cardiovascular Surgical History: Reports: Cardiac Ablation, Other (See Below) Other Cardiovascular Surgeries/Procedures: Cardioversion ablation Respiratory Surgical History: Reports: None GI Surgical History: Reports: Colonoscopy, Small Bowel Musculoskeletal Surgical History: Reports: Other (See Below) Other Musculoskeletal Surgeries/Procedures:: 6 back surgeries, 2 neck surgeries , titanium plate in neck Social & Family History - Family History Family Medical History: Noncontributory Musculoskeletal: Reports: Gout Oncologic: Reports: Other (See Below) Other Oncologic Family History: patient states mother had cancer, unsure of what kind. - Tobacco Use Smoking Status *Q: Current Every Day Smoker Years of Tobacco use: 40 Packs/Tins Daily: 1 - Caffeine Use Caffeine Use: Reports: None Caffeine Use Comment: occasional/2 cups of coffee per week - Recreational Drug Use Recreational Drug Use: Yes Recreational Drug Type: Reports: Marijuana/Hashish Recreational Drug Use Frequency: Monthly - Living Situation & Occupation Living situation: Reports: with Family Occupation: Retired ED ROS GENERAL - Review of Systems Review Of Systems: Comprehensive ROS is negative, except as noted in HPI. ED EXAM, GENERAL - Physical Exam Exam: See Below (dictation) Course - Vital Signs Last Recorded V/S: Last Vital Signs Temp 36.2 C 09/28/19 19:05 Pulse 95 09/28/19 19:50 Resp 24 H 09/28/19 19:43 BP 159/113 H 09/28/19 19:50 Pulse Ox 98 09/28/19 19:43 - Orders/Labs/Meds Orders: Active Orders 24 hr Category Date Time Status Assess Neurological Status [RC] ASDIRECTED Care 09/28/19 18:55 Active Cardiac Monitoring [RC] . DIRECTED Care 09/28/19 18:55 Active EKG Documentation Completion [RC] STAT Care 09/28/19 18:55 Active EKG Documentation Completion [RC] STAT Care 09/28/19 19:48 Active Initiate Acute Stroke Protocol [RC] STAT Care 09/28/19 18:55 Active NIH Stroke Scale [RC] ASDIRECTED Care 09/28/19 18:55 Active Nursing Bedside Swallow Screen [RC] ASDIRECTED Care 09/28/19 18:55 Active Oxygen Therapy [RC] ASDIRECTED Care 09/28/19 18:55 Active Stroke Education, General [RC] Click to Edit Care 09/28/19 18:55 Active CULTURE BLOOD [BC] Stat Lab 09/28/19 19:52 Ordered CULTURE BLOOD [BC] Stat Lab 09/28/19 19:52 Ordered Azithromycin [Zithromax] 500 mg Med 09/28/19 20:01 Ordered Sodium Chloride 0.9% [Normal Saline (AdvBag)] 250 ml IV ONETIME Sodium Chloride 0.9% [Normal Saline] Med 09/28/19 18:55 Active 10 ml IV ASDIRECTED PRN Sodium Chloride 0.9% [Saline Flush] Med 09/28/19 18:55 Active 10 ml FLUSH ASDIRECTED PRN Sodium Chloride 0.9% [Saline Flush] Med 09/28/19 18:55 Active 2.5 ml FLUSH ASDIRECTED PRN cefTRIAXone [Rocephin] 1 gm Med 09/28/19 20:02 Ordered Sodium Chloride 0.9% [Normal Saline] 50 ml IV ONETIME Blood Culture x2 Reflex Set [OM.PC] Stat Ot 09/28/19 19:52 Ordered Peripheral IV Insertion Adult [OM.PC] Stat Ot 09/28/19 18:55 Ordered Medication Orders Sodium Chloride (Saline Flush) 10 ml FLUSH ASDIRECTED PRN PRN Reason: Keep Vein Open Sodium Chloride (Saline Flush) 2.5 ml FLUSH ASDIRECTED PRN PRN Reason: Keep Vein Open Sodium Chloride (Normal Saline) 10 ml IV ASDIRECTED PRN PRN Reason: IV Use Labs: Laboratory Tests 09/28/19 09/28/19 09/28/19 Range/Units 19:15 19:15 19:15 WBC 8.69 (4.0-11.0) K/uL RBC 5.08 (4.50-5.90) M/uL Hgb 15.7 (13.0-17.0) g/dL Hct 47.4 (38.0-50.0) % MCV 93.3 (80.0-98.0) fL MCH 30.9 (27.0-32.0) pg MCHC 33.1 (31.0-37.0) g/dL RDW Std Deviation 47.3 (28.0-62.0) fl RDW Coeff of Dennis 14 (11.0-15.0) % Plt Count 197 (150-400) K/uL MPV 11.40 (7.40-12.00) fL Neut % (Auto) 50.2 (48.0-80.0) % Lymph % (Auto) 38.1 (16.0-40.0) % Thurston % (Auto) 8.6 (0.0-15.0) % Eos % (Auto) 2.5 (0.0-7.0) % Baso % (Auto) 0.6 (0.0-1.5) % Neut # (Auto) 4.4 (1.4-5.7) K/uL Lymph # (Auto) 3.3 H (0.6-2.4) K/uL Thurston # (Auto) 0.8 (0.0-0.8) K/uL Eos # (Auto) 0.2 (0.0-0.7) K/uL Baso # (Auto) 0.1 (0.0-0.1) K/uL Nucleated RBC % 0.0 /100WBC Nucleated RBCs # 0 K/uL INR 0.99 APTT 25.3 (18.6-31.3) SEC Sodium 138 (136-148) mmol/L Potassium 4.5 (3.5-5.1) mmol/L Chloride 102 (98-107) mmol/L Carbon Dioxide 26.4 (21.0-32.0) mmol/L BUN 15 (7.0-18.0) mg/dL Creatinine 1.2 (0.8-1.3) mg/dL Est Cr Clr Drug Dosing 73.06 mL/min Estimated GFR (MDRD) > 60.0 ml/min Glucose 277 H (74-106) mg/dL Calcium 8.5 (8.5-10.1) mg/dL Total Bilirubin 0.2 (0.2-1.0) mg/dL AST 16 (15-37) IU/L ALT 22 (14-63) IU/L Alkaline Phosphatase 72 (46-116) U/L Troponin I < 0.050 (0.000-0.056) ng/mL Total Protein 7.6 (6.4-8.2) g/dL Albumin 3.8 (3.4-5.0) g/dL Globulin 3.8 (2.6-4.0) g/dL Albumin/Globulin Ratio 1.0 (0.9-1.6) TSH 3rd Generation 1.27 (0.36-3.74) uIU/mL Urine Opiates Screen (NEGATIVE) Ur Oxycodone Screen (NEGATIVE) Urine Methadone Screen (NEGATIVE) Ur Barbiturates Screen (NEGATIVE) Ur Phencyclidine Scrn (NEGATIVE) Ur Amphetamine Screen (NEGATIVE) U Methamphetamines Scrn (NEGATIVE) U Benzodiazepines Scrn (NEGATIVE) U Cocaine Metab Screen (NEGATIVE) U Marijuana (THC) Screen (NEGATIVE) 09/28/19 Range/Units 19:35 WBC (4.0-11.0) K/uL RBC (4.50-5.90) M/uL Hgb (13.0-17.0) g/dL Hct (38.0-50.0) % MCV (80.0-98.0) fL MCH (27.0-32.0) pg MCHC (31.0-37.0) g/dL RDW Std Deviation (28.0-62.0) fl RDW Coeff of Dennis (11.0-15.0) % Plt Count (150-400) K/uL MPV (7.40-12.00) fL Neut % (Auto) (48.0-80.0) % Lymph % (Auto) (16.0-40.0) % Thurston % (Auto) (0.0-15.0) % Eos % (Auto) (0.0-7.0) % Baso % (Auto) (0.0-1.5) % Neut # (Auto) (1.4-5.7) K/uL Lymph # (Auto) (0.6-2.4) K/uL Thurston # (Auto) (0.0-0.8) K/uL Eos # (Auto) (0.0-0.7) K/uL Baso # (Auto) (0.0-0.1) K/uL Nucleated RBC % /100WBC Nucleated RBCs # K/uL INR APTT (18.6-31.3) SEC Sodium (136-148) mmol/L Potassium (3.5-5.1) mmol/L Chloride (98-107) mmol/L Carbon Dioxide (21.0-32.0) mmol/L BUN (7.0-18.0) mg/dL Creatinine (0.8-1.3) mg/dL Est Cr Clr Drug Dosing mL/min Estimated GFR (MDRD) ml/min Glucose (74-106) mg/dL Calcium (8.5-10.1) mg/dL Total Bilirubin (0.2-1.0) mg/dL AST (15-37) IU/L ALT (14-63) IU/L Alkaline Phosphatase (46-116) U/L Troponin I (0.000-0.056) ng/mL Total Protein (6.4-8.2) g/dL Albumin (3.4-5.0) g/dL Globulin (2.6-4.0) g/dL Albumin/Globulin Ratio (0.9-1.6) TSH 3rd Generation (0.36-3.74) uIU/mL Urine Opiates Screen NEGATIVE (NEGATIVE) Ur Oxycodone Screen NEGATIVE (NEGATIVE) Urine Methadone Screen NEGATIVE (NEGATIVE) Ur Barbiturates Screen NEGATIVE (NEGATIVE) Ur Phencyclidine Scrn NEGATIVE (NEGATIVE) Ur Amphetamine Screen NEGATIVE (NEGATIVE) U Methamphetamines Scrn NEGATIVE (NEGATIVE) U Benzodiazepines Scrn NEGATIVE (NEGATIVE) U Cocaine Metab Screen NEGATIVE (NEGATIVE) U Marijuana (THC) Screen NEGATIVE (NEGATIVE) Meds: Medications Generic Name Dose Route Start Last Admin Trade Name Freq PRN Reason Stop Dose Admin Sodium Chloride 10 ml 09/28/19 18:55 Saline Flush FLUSH ASDIRECTED PRN Keep Vein Open Sodium Chloride 2.5 ml 09/28/19 18:55 Saline Flush FLUSH ASDIRECTED PRN Keep Vein Open Sodium Chloride 10 ml 09/28/19 18:55 Normal Saline IV ASDIRECTED PRN IV Use Discontinued Medications Generic Name Dose Route Start Last Admin Trade Name Freq PRN Reason Stop Dose Admin Acetaminophen 1,000 mg 09/28/19 20:00 Tylenol Extra Strength PO 09/28/19 20:01 ONETIME ONE Departure - Departure Time of Disposition: 20:03 Disposition: Refer to Observation Condition: Good Clinical Impression: History of paresthesia, Atypical chest pain, History of atrial fibrillation - Discharge Information Forms: ED Department Discharge - My Orders Last 24 Hours: My Active Orders 09/28/19 19:48 EKG Documentation Completion [RC] STAT 09/28/19 19:52 CULTURE BLOOD [BC] Stat CULTURE BLOOD [BC] Stat Blood Culture x2 Reflex Set [OM.PC] Stat 09/28/19 20:01 Azithromycin [Zithromax] 500 mg Sodium Chloride 0.9% [Normal Saline (AdvBag)] 250 ml IV ONETIME 09/28/19 20:02 cefTRIAXone [Rocephin] 1 gm Sodium Chloride 0.9% [Normal Saline] 50 ml IV ONETIME - Assessment/Plan Last 24 Hours: My Active Orders 09/28/19 19:48 EKG Documentation Completion [RC] STAT 09/28/19 19:52 CULTURE BLOOD [BC] Stat CULTURE BLOOD [BC] Stat Blood Culture x2 Reflex Set [OM.PC] Stat 09/28/19 20:01 Azithromycin [Zithromax] 500 mg Sodium Chloride 0.9% [Normal Saline (AdvBag)] 250 ml IV ONETIME 09/28/19 20:02 cefTRIAXone [Rocephin] 1 gm Sodium Chloride 0.9% [Normal Saline] 50 ml IV ONETIME
--- NOTE | 2019-09-28 19:24 | CT ---
INDICATION: Headache, numbness on left side, fall TECHNIQUE: CT Head without i.v. contrast. COMPARISON: 04/22/2019 FINDINGS: CSF space: The ventricles are normal for age. Brain: No evidence of mass, acute infarction or hemorrhage is seen. No mass-effect or midline shift is seen. Stable encephalomalacia is present in the right frontal lobe. Calvarium: The visualized paranasal sinuses are well aerated. The mastoid air cells are clear. The visualized orbits are grossly unremarkable. The calvarium is unremarkable in appearance with no fractures identified. IMPRESSION: 1. No evidence of acute infarction, intracranial hemorrhage, or mass-effect seen. Dictated by Curtis Cano MD @ 09/28/2019 7:22:41 PM Please note that all CT scans at this facility use dose modulation, iterative reconstruction, and/or weight-based dosing when appropriate to reduce radiation dose to as low as reasonably achievable. Dictated by: Curtis Cano MD @ 09/28/2019 19:23:02 (Electronically Signed)
--- NOTE | 2019-09-28 19:37 | CR ---
INDICATION: Stroke TECHNIQUE: Chest radiograph 1 view COMPARISON: 09/04/2019 FINDINGS: Mediastinum: The mediastinum is normal in appearance. The heart silhouette is normal in size and morphology. Lung: Ill-defined nodular infiltrates are present in the lung bases. No sign of pleural effusion seen. No pneumothorax is identified. Bone and Soft tissue: Unremarkable for age. IMPRESSION: 1. Ill-defined nodular infiltrates are present in the lung bases. The differential diagnosis includes atelectasis, basilar edema, or pneumonia. Dictated by Curtis Cano MD @ 09/28/2019 7:36:37 PM Dictated by: Curtis Cano MD @ 09/28/2019 19:36:49 (Electronically Signed)
[2019-09-28 19:50] LABS: BLOOD UREA NITROGEN,BUN 15 mg/dL (7.0-18.0); CARBON DIOXIDE,CO2 26.4 mmol/L (21.0-32.0); CHLORIDE,CL 102 mmol/L (98-107); GLUCOSE RANDOM 277 mg/dL (74-106); POTASSIUM,K 4.5 mmol/L (3.5-5.1); SODIUM,NA 138 mmol/L (136-148)
[2019-09-28] MEDS ORDERED: Acetaminophen 500 MG Tab PO ONE (20:00)
[2019-09-28] MEDS ORDERED: Azithromycin 500 MG in Sodium Chloride 0.9% 250 ML IV STA (20:01)
[2019-09-28] MEDS ORDERED: cefTRIAXone 1 GM in Sodium Chloride 0.9% 50 ML IV ONE (20:02)
[2019-09-28] MEDS ORDERED: Azithromycin 250 MG Tab PO ONE (20:46)
[2019-09-28] MEDS ORDERED: Non-Formulary Medication 1 Each (Ranitidine 150 MG) PO PRN (20:47)
[2019-09-28] MEDS ORDERED: Apixaban 5 MG Tab PO SCH (21:00)
[2019-09-28] MEDS ORDERED: Morphine 2 MG/ML Syringe IVPUSH ONE (21:12)
--- NOTE | 2019-09-28 21:46 | PCM.HP.2 ---
H&P History of Present Illness - General Date of Service: 09/28/19 Admit Problem/Dx: Admission Diagnosis/Problem Admission Diagnosis/Problem Atypical chest pain Source of Information: Patient History Limitations: Reports: No Limitations - History of Present Illness Initial Comments - Free Text/Narative: Patient is a 59-year-old white male with PMH of diabetes, hypertension and chronic intermittent atrial fibrillation on anticoagulation who presents with a concern of right-sided numbness that began 24 hours prior to arrival. Patient also c/o intermittent chest pain, denied any associated SOB,palpitations, diaphoresis nausea or vomiting. Patient also suffred a fall........ Patients NIH stroke scale was 1 upon arrival for right lower extremity Drift. CT scan of brain was negative. CXR was normal. 1st troponin was negative as well. EKG didn't show any acute ischemic changes. Patient is being admitted for further management. Duration of Symptoms: Reports: Day(s): (1 day) Location: Reports: Chest, Upper Extremity, Right Chest Pain Score (Numeric/FACES): 7 head Pain Score (Numeric/FACES): 8 - Related Data Allergies/Adverse Reactions: Allergies Allergy/AdvReac Type Severity Reaction Status Date / Time bee venom protein (honey bee) Allergy Anaphylactic Verified 09/28/19 18:56 Shock Home Medications: Home Meds Apixaban [Eliquis] 200 mg PO BID 04/20/19 [History] DULoxetine HCl [Duloxetine HCl] 1 tab PO DAILY 04/20/19 [History] metFORMIN [Glucophage] 1 tab PO BID 04/20/19 [History] Metoprolol Succinate 100 mg PO DAILY 07/22/19 [History] QUEtiapine [SEROquel] 50 mg PO BEDTIME 07/22/19 [History] atorvaSTATin [Lipitor] 80 mg PO DAILY 08/07/19 [History] Ranitidine [Zantac] 150 mg PO BID PRN MDD [employer] 09/05/19 [History] Amoxicillin/Clavulanate K [Augmentin 875-125 MG] 1 tab PO BID 5 Days #10 tablet 09/06/19 [Rx] Azithromycin 250 mg PO DAILY 5 Days #5 tablet 09/06/19 [Rx] Past Medical History HEENT History: Reports: None Other HEENT History: upper and lower dentures Cardiovascular History: Reports: Arrhythmia, Blood Clots/VTE/DVT, CAD, Hypertension Other Cardiovascular History: Afib w/ rvr Respiratory History: Reports: COPD Gastrointestinal History: Reports: Bowel Obstruction, GERD, Other (See Below) Other Gastrointestinal History: Intestinal rupture Genitourinary History: Reports: None Musculoskeletal History: Reports: Back Pain, Chronic, Fracture Neurological History: Reports: CVA Other Neuro History: 3 strokes in the last 1.5 years Psychiatric History: Reports: Anxiety, Depression Endocrine/Metabolic History: Reports: Diabetes, Type II Hematologic History: Reports: None Immunologic History: Reports: None Oncologic (Cancer) History: Reports: None Dermatologic History: Reports: None - Infectious Disease History Infectious Disease History: Reports: Chicken Pox - Past Surgical History Head Surgeries/Procedures: Reports: None Cardiovascular Surgical History: Reports: Cardiac Ablation, Other (See Below) Other Cardiovascular Surgeries/Procedures: Cardioversion ablation Respiratory Surgical History: Reports: None GI Surgical History: Reports: Colonoscopy, Small Bowel Musculoskeletal Surgical History: Reports: Other (See Below) Other Musculoskeletal Surgeries/Procedures:: 6 back surgeries, 2 neck surgeries , titanium plate in neck Social & Family History - Family History Family Medical History: Noncontributory Musculoskeletal: Reports: Gout Oncologic: Reports: Other (See Below) Other Oncologic Family History: patient states mother had cancer, unsure of what kind. - Tobacco Use Smoking Status *Q: Current Every Day Smoker Years of Tobacco use: 40 Packs/Tins Daily: 1 - Caffeine Use Caffeine Use: Reports: None Caffeine Use Comment: occasional/2 cups of coffee per week - Recreational Drug Use Recreational Drug Use: Yes Recreational Drug Type: Reports: Marijuana/Hashish Recreational Drug Use Frequency: Monthly - Living Situation & Occupation Living situation: Reports: with Family Occupation: Retired H&P Review of Systems - Review of Systems: Review Of Systems: See Below General: Denies: Fever, Chills HEENT: Denies: Rhinitis, Post Nasal Drip Cardiovascular: Reports: Chest Pain, Palpitations. Denies: Orthopnea, Lightheadedness, Syncope Gastrointestinal: Denies: Abdominal Pain, Anorexia, Black Stool, Melena, Nausea Genitourinary: Denies: Dysuria, Frequency, Pain Musculoskeletal: Reports: Back Pain, Muscle Pain Skin: Denies: Cyanosis, Mottled Exam - Vital Signs Vital Signs: Last Vital Signs Temp 36.2 C 09/28/19 19:05 Pulse 88 09/28/19 20:28 Resp 24 H 09/28/19 19:43 BP 145/96 H 09/28/19 20:28 Pulse Ox 98 09/28/19 19:43 Weight: 102.965 kg - Patient Data Lab Results Last 24 hrs: Laboratory Results - last 24 hr 09/28/19 09/28/19 09/28/19 Range/Units 19:15 19:15 19:15 WBC 8.69 (4.0-11.0) K/uL RBC 5.08 (4.50-5.90) M/uL Hgb 15.7 (13.0-17.0) g/dL Hct 47.4 (38.0-50.0) % MCV 93.3 (80.0-98.0) fL MCH 30.9 (27.0-32.0) pg MCHC 33.1 (31.0-37.0) g/dL RDW Std Deviation 47.3 (28.0-62.0) fl RDW Coeff of Dennis 14 (11.0-15.0) % Plt Count 197 (150-400) K/uL MPV 11.40 (7.40-12.00) fL Neut % (Auto) 50.2 (48.0-80.0) % Lymph % (Auto) 38.1 (16.0-40.0) % [place] % (Auto) 8.6 (0.0-15.0) % Eos % (Auto) 2.5 (0.0-7.0) % Baso % (Auto) 0.6 (0.0-1.5) % Neut # (Auto) 4.4 (1.4-5.7) K/uL Lymph # (Auto) 3.3 H (0.6-2.4) K/uL [place] # (Auto) 0.8 (0.0-0.8) K/uL Eos # (Auto) 0.2 (0.0-0.7) K/uL Baso # (Auto) 0.1 (0.0-0.1) K/uL Nucleated RBC % 0.0 /100WBC Nucleated RBCs # 0 K/uL INR 0.99 APTT 25.3 (18.6-31.3) SEC Sodium 138 (136-148) mmol/L Potassium 4.5 (3.5-5.1) mmol/L Chloride 102 (98-107) mmol/L Carbon Dioxide 26.4 (21.0-32.0) mmol/L BUN 15 (7.0-18.0) mg/dL Creatinine 1.2 (0.8-1.3) mg/dL Est Cr Clr Drug Dosing 73.06 mL/min Estimated GFR (MDRD) > 60.0 ml/min Glucose 277 H (74-106) mg/dL Calcium 8.5 (8.5-10.1) mg/dL Total Bilirubin 0.2 (0.2-1.0) mg/dL AST 16 (15-37) IU/L ALT 22 (14-63) IU/L Alkaline Phosphatase 72 (46-116) U/L Troponin I < 0.050 (0.000-0.056) ng/mL Total Protein 7.6 (6.4-8.2) g/dL Albumin 3.8 (3.4-5.0) g/dL Globulin 3.8 (2.6-4.0) g/dL Albumin/Globulin Ratio 1.0 (0.9-1.6) TSH 3rd Generation 1.27 (0.36-3.74) uIU/mL Urine Opiates Screen (NEGATIVE) Ur Oxycodone Screen (NEGATIVE) Urine Methadone Screen (NEGATIVE) Ur Barbiturates Screen (NEGATIVE) Ur Phencyclidine Scrn (NEGATIVE) Ur Amphetamine Screen (NEGATIVE) U Methamphetamines Scrn (NEGATIVE) U Benzodiazepines Scrn (NEGATIVE) U Cocaine Metab Screen (NEGATIVE) U Marijuana (THC) Screen (NEGATIVE) 09/28/19 Range/Units 19:35 WBC (4.0-11.0) K/uL RBC (4.50-5.90) M/uL Hgb (13.0-17.0) g/dL Hct (38.0-50.0) % MCV (80.0-98.0) fL MCH (27.0-32.0) pg MCHC (31.0-37.0) g/dL RDW Std Deviation (28.0-62.0) fl RDW Coeff of Dennis (11.0-15.0) % Plt Count (150-400) K/uL MPV (7.40-12.00) fL Neut % (Auto) (48.0-80.0) % Lymph % (Auto) (16.0-40.0) % [place] % (Auto) (0.0-15.0) % Eos % (Auto) (0.0-7.0) % Baso % (Auto) (0.0-1.5) % Neut # (Auto) (1.4-5.7) K/uL Lymph # (Auto) (0.6-2.4) K/uL [place] # (Auto) (0.0-0.8) K/uL Eos # (Auto) (0.0-0.7) K/uL Baso # (Auto) (0.0-0.1) K/uL Nucleated RBC % /100WBC Nucleated RBCs # K/uL INR APTT (18.6-31.3) SEC Sodium (136-148) mmol/L Potassium (3.5-5.1) mmol/L Chloride (98-107) mmol/L Carbon Dioxide (21.0-32.0) mmol/L BUN (7.0-18.0) mg/dL Creatinine (0.8-1.3) mg/dL Est Cr Clr Drug Dosing mL/min Estimated GFR (MDRD) ml/min Glucose (74-106) mg/dL Calcium (8.5-10.1) mg/dL Total Bilirubin (0.2-1.0) mg/dL AST (15-37) IU/L ALT (14-63) IU/L Alkaline Phosphatase (46-116) U/L Troponin I (0.000-0.056) ng/mL Total Protein (6.4-8.2) g/dL Albumin (3.4-5.0) g/dL Globulin (2.6-4.0) g/dL Albumin/Globulin Ratio (0.9-1.6) TSH 3rd Generation (0.36-3.74) uIU/mL Urine Opiates Screen NEGATIVE (NEGATIVE) Ur Oxycodone Screen NEGATIVE (NEGATIVE) Urine Methadone Screen NEGATIVE (NEGATIVE) Ur Barbiturates Screen NEGATIVE (NEGATIVE) Ur Phencyclidine Scrn NEGATIVE (NEGATIVE) Ur Amphetamine Screen NEGATIVE (NEGATIVE) U Methamphetamines Scrn NEGATIVE (NEGATIVE) U Benzodiazepines Scrn NEGATIVE (NEGATIVE) U Cocaine Metab Screen NEGATIVE (NEGATIVE) U Marijuana (THC) Screen NEGATIVE (NEGATIVE) Result Diagrams: 09/28/19 19:15 09/28/19 19:15 Payam Results Last 24 hrs: Microbiology 09/28/19 20:08 Influenza Type A Antigen Screen - Final Nasopharyngeal Swab NEGATIVE INFLUENZA A VIRUS AG REFERENCE RANGE: NEGATIVE Influenza Type B Antigen Screen - Final NEGATIVE INFLUENZA B VIRUS AG REFERENCE RANGE: NEGATIVE *Q Meaningful Use (ADM) - VTE Risk Assess *Q Each Risk Factor Represents 2 Points: Age 60 - 74 Years Total Score 2 Point Risk Factors: 2 - Problem List (1) Right leg paresthesias SNOMED Code(s): 11076885791275441 ICD Code: R20.2 - PARESTHESIA OF SKIN Status: Acute Current Visit: Yes (2) Afib SNOMED Code(s): 90481649 ICD Code: I48.91 - UNSPECIFIED ATRIAL FIBRILLATION Status: Acute Current Visit: Yes (3) Atypical chest pain SNOMED Code(s): 851564375 ICD Code: R07.89 - OTHER CHEST PAIN Status: Acute Priority: High Current Visit: No Problem List Initiated/Reviewed/Updated: Yes Orders Last 24hrs: Active Orders 24 hr Category Date Time Status Patient Status [ADT] Stat ADT 09/28/19 20:05 Active Ambulate [RC] ASDIRECTED Care 09/28/19 20:36 Active Assess Neurological Status [RC] ASDIRECTED Care 09/28/19 18:55 Active Blood Glucose Check, Bedside [RC] WITHMEALSANDBED Care 09/28/19 20:36 Active Cardiac Monitoring [RC] . DIRECTED Care 09/28/19 18:55 Active Communication Order [RC] ASDIRECTED Care 09/28/19 20:36 Active EKG Documentation Completion [RC] STAT Care 09/28/19 18:55 Active EKG Documentation Completion [RC] STAT Care 09/28/19 19:48 Active Head of Bed Elevation [RC] ASDIRECTED Care 09/28/19 20:36 Active Initiate Acute Stroke Protocol [RC] STAT Care 09/28/19 18:55 Active NIH Stroke Scale [RC] ASDIRECTED Care 09/28/19 18:55 Active Notify Provider Status Change [RC] ASDIRECTED Care 09/28/19 20:36 Active Nursing Bedside Swallow Screen [RC] ASDIRECTED Care 09/28/19 18:55 Active Oxygen Therapy [RC] ASDIRECTED Care 09/28/19 18:55 Active Oxygen Therapy [RC] PRN Care 09/28/19 20:36 Active Stroke Education, General [RC] Click to Edit Care 09/28/19 18:55 Active VTE/DVT Education [RC] PER UNIT ROUTINE Care 09/28/19 20:36 Active Vital Signs [RC] Q4H Care 09/28/19 20:36 Active Heart Healthy Diet [DIET] Diet 09/28/19 Dinner Active Ang Neck w wo Cont [MR] Routine Exams 09/28/19 20:36 Ordered Brain w wo Cont [MR] Routine Exams 09/28/19 20:36 Ordered CV Carotid Duplex Comp [US] Routine Exams 09/28/19 20:36 Ordered Echo 2D wo Cont [US] Stat Exams 09/28/19 20:36 Ordered BMP [BASIC METABOLIC PANEL,BMP] [CHEM] AM Lab 09/29/19 05:11 Ordered CBC WITH AUTO DIFF [HEME] AM Lab 09/29/19 05:11 Ordered CULTURE BLOOD [BC] Stat Lab 09/28/19 19:52 Ordered CULTURE BLOOD [BC] Stat Lab 09/28/19 19:52 Ordered GLYCOSYLATED HEMOGLOBIN,HGBA1C [CHEM] AM Lab 09/29/19 05:11 Ordered LIPID PANEL [CHEM] AM Lab 09/29/19 05:11 Ordered MAGNESIUM [CHEM] AM Lab 09/29/19 05:11 Ordered PHOSPHORUS [CHEM] AM Lab 09/29/19 05:11 Ordered TROPONIN I [CHEM] Q3H Lab 09/28/19 22:15 Ordered TROPONIN I [CHEM] Q3H Lab 09/29/19 01:15 Ordered Apixaban [Eliquis] Med 09/28/19 21:00 Active 200 mg PO BID DULoxetine [Cymbalta] Med 09/29/19 09:00 Active 60 mg PO DAILY Insulin Aspart [NovoLOG] Med 09/29/19 07:30 Active See Protocol SUBCUT TIDAC Metoprolol Succinate [Toprol XL] Med 09/29/19 09:00 Active 100 mg PO DAILY QUEtiapine [SEROquel] Med 09/28/19 21:00 Active 50 mg PO BEDTIME Ranitidine Med 09/28/19 20:47 Active 150 mg PO BID PRN Sodium Chloride 0.9% [Normal Saline] Med 09/28/19 18:55 Active 10 ml IV ASDIRECTED PRN Sodium Chloride 0.9% [Saline Flush] Med 09/28/19 18:55 Active 10 ml FLUSH ASDIRECTED PRN Sodium Chloride 0.9% [Saline Flush] Med 09/28/19 18:55 Active 2.5 ml FLUSH ASDIRECTED PRN atorvaSTATin [Lipitor] Med 09/28/19 21:00 Active 80 mg PO DAILY cefTRIAXone [Rocephin in Dextrose,Iso-Osm 1 GM/50 ML] 1 Med 09/29/19 09:00 Active gm Premix Bag 1 bag IV Q24H Blood Culture x2 Reflex Set [OM.PC] Stat Oth 09/28/19 19:52 Ordered Peripheral IV Insertion Adult [OM.PC] Stat Oth 09/28/19 18:55 Ordered Resuscitation Status Routine Resus Stat 09/28/19 20:36 Ordered Medication Orders Apixaban (Eliquis) 200 mg PO BID CHEKO Atorvastatin Calcium (Lipitor) 80 mg PO DAILY CHEKO Duloxetine HCl (Cymbalta) 60 mg PO DAILY [facility] Ceftriaxone Sodium/Dextrose 1 (gm/ Premix) 50 mls @ 100 mls/hr IV Q24H CHEKO Insulin Aspart (Novolog) 0 unit SUBCUT TIDAC CHEKO; Protocol Metoprolol Succinate (Toprol Xl) 100 mg PO DAILY [facility] Non-Formulary Medication (Ranitidine) 150 mg PO BID PRN PRN Reason: Other Quetiapine Fumarate (Seroquel) 50 mg PO BEDTIME CHEKO Sodium Chloride (Saline Flush) 10 ml FLUSH ASDIRECTED PRN PRN Reason: Keep Vein Open Sodium Chloride (Saline Flush) 2.5 ml FLUSH ASDIRECTED PRN PRN Reason: Keep Vein Open Sodium Chloride (Normal Saline) 10 ml IV ASDIRECTED PRN PRN Reason: IV Use Assessment/Plan Comment:: 59 y/o M came in with c/o right LE paresthesia and fall, slight pronator drift on exam in ED, resolved now Also c/o intermittent chest pain EKG didn't show any acute ischemic changes, 1st troponin negative CT head negative for acute stroke Will trend 2 more troponins Obtain MRI/MRA Will check Lipid profile, HbA1c, Obatin 2D ECHO, carotid USG Cont Eliquis for paroxysmal Afib, current in sinus rhythm cont, statin, SSI for DM
[2019-09-28] MEDS ORDERED: traZODone 50 MG Tab PO ONE ×2 (22:30→23:29)
[2019-09-28] MEDS: Pregabalin 200 MG Cap PO SCH (23:20)
[2019-09-28] MEDS ORDERED: Insulin Glargine,Human Rec. Analog 100 Units/ML 3 ML Pen SUBCUT SCH (23:30)
[2019-09-29] MEDS: atorvaSTATin 40 MG Tab PO SCH ×2 (00:04→08:52)
[2019-09-29] MEDS: Insulin Detemir 100 Units/ML 3 ML Pen SUBCUT SCH ×2 (00:24→22:45)
[2019-09-29] MEDS ORDERED: Morphine 2 MG/ML Syringe IVPUSH ONE (01:37)
[2019-09-29 01:43] LABS: HEMOGLOBIN A1C 8.3 % (4.5-6.2)
[2019-09-29 01:48] LABS: BLOOD UREA NITROGEN,BUN 14 mg/dL (7.0-18.0); CHLORIDE,CL 105 mmol/L (98-107); GLUCOSE RANDOM 168 mg/dL (74-106); SODIUM,NA 142 mmol/L (136-148)
[2019-09-29] MEDS: Apixaban 5 MG Tab PO SCH ×3 (01:48→22:44)
[2019-09-29] MEDS ORDERED: Famotidine 20 MG Tab PO PRN (07:41)
[2019-09-29] MEDS ORDERED: Magnesium Sulfate/Water 2 GM in Premix Bag 1 BAG IV ONE (08:00)
[2019-09-29] MEDS: Pregabalin 200 MG Cap PO SCH ×3 (08:47→22:45)
[2019-09-29] MEDS: Metoprolol Succinate 100 MG Tab.ER PO SCH (08:53)
[2019-09-29] MEDS ORDERED: DULoxetine 60 MG Cap PO SCH (09:00)
--- NOTE | 2019-09-29 09:22 | PCM.PN ---
- General Info Date of Service: 09/29/19 Admission Dx/Problem (Free Text): Admission Diagnosis/Problem Admission Diagnosis/Problem Atypical chest pain, R leg paraesthesia Subjective Update: Reports pain to R shoulder, requesting Morphine. Denies chest pain. No SOB. Reports intermittent dizziness and weak legs Functional Status: Reports: Tolerating Diet, Ambulating, Urinating. Denies: Pain Controlled - Review of Systems General: Reports: No Symptoms. Denies: Weakness, Fatigue HEENT: Reports: No Symptoms. Denies: Sore Throat, Visual Changes Pulmonary: Reports: No Symptoms. Denies: Shortness of Breath Cardiovascular: Reports: No Symptoms. Denies: Chest Pain Gastrointestinal: Reports: No Symptoms. Denies: Abdominal Pain Musculoskeletal: Reports: Shoulder Pain (R shoulder pain) Neurological: Reports: Dizziness, Weakness (legs) Psychiatric: Reports: No Symptoms - Patient Data Vitals - Most Recent: Last Vital Signs Temp 96.9 F 09/29/19 07:53 Pulse 79 09/29/19 08:53 Resp 20 09/29/19 07:53 BP 122/74 09/29/19 08:53 Pulse Ox 93 L 09/29/19 07:53 Weight - Most Recent: 102.965 kg I&O - Last 24 Hours: Intake & Output 09/28/19 09/29/19 09/29/19 22:59 06:59 14:59 Intake Total 1040 Output Total 1025 Balance 15 Lab Results Last 24 Hours: Laboratory Results - last 24 hr 09/28/19 09/28/19 09/28/19 Range/Units 19:15 19:15 19:15 WBC 8.69 (4.0-11.0) K/uL RBC 5.08 (4.50-5.90) M/uL Hgb 15.7 (13.0-17.0) g/dL Hct 47.4 (38.0-50.0) % MCV 93.3 (80.0-98.0) fL MCH 30.9 (27.0-32.0) pg MCHC 33.1 (31.0-37.0) g/dL RDW Std Deviation 47.3 (28.0-62.0) fl RDW Coeff of Dennis 14 (11.0-15.0) % Plt Count 197 (150-400) K/uL MPV 11.40 (7.40-12.00) fL Neut % (Auto) 50.2 (48.0-80.0) % Lymph % (Auto) 38.1 (16.0-40.0) % [place] % (Auto) 8.6 (0.0-15.0) % Eos % (Auto) 2.5 (0.0-7.0) % Baso % (Auto) 0.6 (0.0-1.5) % Neut # (Auto) 4.4 (1.4-5.7) K/uL Lymph # (Auto) 3.3 H (0.6-2.4) K/uL [place] # (Auto) 0.8 (0.0-0.8) K/uL Eos # (Auto) 0.2 (0.0-0.7) K/uL Baso # (Auto) 0.1 (0.0-0.1) K/uL Nucleated RBC % 0.0 /100WBC Nucleated RBCs # 0 K/uL INR 0.99 APTT 25.3 (18.6-31.3) SEC Sodium 138 (136-148) mmol/L Potassium 4.5 (3.5-5.1) mmol/L Chloride 102 (98-107) mmol/L Carbon Dioxide 26.4 (21.0-32.0) mmol/L BUN 15 (7.0-18.0) mg/dL Creatinine 1.2 (0.8-1.3) mg/dL Est Cr Clr Drug Dosing 73.06 mL/min Estimated GFR (MDRD) > 60.0 ml/min Glucose 277 H (74-106) mg/dL POC Glucose (60-110) mg/dL Hemoglobin A1c (4.5-6.2) % Calcium 8.5 (8.5-10.1) mg/dL Phosphorus (2.6-4.7) mg/dL Magnesium (1.8-2.4) mg/dL Total Bilirubin 0.2 (0.2-1.0) mg/dL AST 16 (15-37) IU/L ALT 22 (14-63) IU/L Alkaline Phosphatase 72 (46-116) U/L Troponin I < 0.050 (0.000-0.056) ng/mL Total Protein 7.6 (6.4-8.2) g/dL Albumin 3.8 (3.4-5.0) g/dL Globulin 3.8 (2.6-4.0) g/dL Albumin/Globulin Ratio 1.0 (0.9-1.6) Triglycerides (0-200) mg/dL Cholesterol (50-200) mg/dL LDL Cholesterol, Calc (60-180) mg/dL VLDL Cholesterol (5-55) mg/dL HDL Cholesterol (40-60) mg/dL Cholesterol/HDL Ratio (3.3-6.0) TSH 3rd Generation 1.27 (0.36-3.74) uIU/mL Urine Color Urine Appearance Urine pH (5.0-8.0) Ur Specific May (1.001-1.035) Urine Protein (NEGATIVE) mg/dL Urine Glucose (UA) (NEGATIVE) mg/dL Urine Ketones (NEGATIVE) mg/dL Urine Occult Blood (NEGATIVE) Urine Nitrite (NEGATIVE) Urine Bilirubin (NEGATIVE) Urine Urobilinogen (<2.0) EU/dL Ur Leukocyte Esterase (NEGATIVE) Urine Opiates Screen (NEGATIVE) Ur Oxycodone Screen (NEGATIVE) Urine Methadone Screen (NEGATIVE) Ur Barbiturates Screen (NEGATIVE) Ur Phencyclidine Scrn (NEGATIVE) Ur Amphetamine Screen (NEGATIVE) U Methamphetamines Scrn (NEGATIVE) U Benzodiazepines Scrn (NEGATIVE) U Cocaine Metab Screen (NEGATIVE) U Marijuana (THC) Screen (NEGATIVE) 09/28/19 09/28/19 09/28/19 Range/Units 19:35 21:45 22:51 WBC (4.0-11.0) K/uL RBC (4.50-5.90) M/uL Hgb (13.0-17.0) g/dL Hct (38.0-50.0) % MCV (80.0-98.0) fL MCH (27.0-32.0) pg MCHC (31.0-37.0) g/dL RDW Std Deviation (28.0-62.0) fl RDW Coeff of Dennis (11.0-15.0) % Plt Count (150-400) K/uL MPV (7.40-12.00) fL Neut % (Auto) (48.0-80.0) % Lymph % (Auto) (16.0-40.0) % [place] % (Auto) (0.0-15.0) % Eos % (Auto) (0.0-7.0) % Baso % (Auto) (0.0-1.5) % Neut # (Auto) (1.4-5.7) K/uL Lymph # (Auto) (0.6-2.4) K/uL [place] # (Auto) (0.0-0.8) K/uL Eos # (Auto) (0.0-0.7) K/uL Baso # (Auto) (0.0-0.1) K/uL Nucleated RBC % /100WBC Nucleated RBCs # K/uL INR APTT (18.6-31.3) SEC Sodium (136-148) mmol/L Potassium (3.5-5.1) mmol/L Chloride (98-107) mmol/L Carbon Dioxide (21.0-32.0) mmol/L BUN (7.0-18.0) mg/dL Creatinine (0.8-1.3) mg/dL Est Cr Clr Drug Dosing mL/min Estimated GFR (MDRD) ml/min Glucose (74-106) mg/dL POC Glucose 206 H (60-110) mg/dL Hemoglobin A1c (4.5-6.2) % Calcium (8.5-10.1) mg/dL Phosphorus (2.6-4.7) mg/dL Magnesium (1.8-2.4) mg/dL Total Bilirubin (0.2-1.0) mg/dL AST (15-37) IU/L ALT (14-63) IU/L Alkaline Phosphatase (46-116) U/L Troponin I < 0.050 (0.000-0.056) ng/mL Total Protein (6.4-8.2) g/dL Albumin (3.4-5.0) g/dL Globulin (2.6-4.0) g/dL Albumin/Globulin Ratio (0.9-1.6) Triglycerides (0-200) mg/dL Cholesterol (50-200) mg/dL LDL Cholesterol, Calc (60-180) mg/dL VLDL Cholesterol (5-55) mg/dL HDL Cholesterol (40-60) mg/dL Cholesterol/HDL Ratio (3.3-6.0) TSH 3rd Generation (0.36-3.74) uIU/mL Urine Color Urine Appearance Urine pH (5.0-8.0) Ur Specific May (1.001-1.035) Urine Protein (NEGATIVE) mg/dL Urine Glucose (UA) (NEGATIVE) mg/dL Urine Ketones (NEGATIVE) mg/dL Urine Occult Blood (NEGATIVE) Urine Nitrite (NEGATIVE) Urine Bilirubin (NEGATIVE) Urine Urobilinogen (<2.0) EU/dL Ur Leukocyte Esterase (NEGATIVE) Urine Opiates Screen NEGATIVE (NEGATIVE) Ur Oxycodone Screen NEGATIVE (NEGATIVE) Urine Methadone Screen NEGATIVE (NEGATIVE) Ur Barbiturates Screen NEGATIVE (NEGATIVE) Ur Phencyclidine Scrn NEGATIVE (NEGATIVE) Ur Amphetamine Screen NEGATIVE (NEGATIVE) U Methamphetamines Scrn NEGATIVE (NEGATIVE) U Benzodiazepines Scrn NEGATIVE (NEGATIVE) U Cocaine Metab Screen NEGATIVE (NEGATIVE) U Marijuana (THC) Screen NEGATIVE (NEGATIVE) 09/29/19 09/29/19 09/29/19 Range/Units 00:01 01:10 01:10 WBC 9.41 (4.0-11.0) K/uL RBC 4.77 (4.50-5.90) M/uL Hgb 14.7 (13.0-17.0) g/dL Hct 42.7 (38.0-50.0) % MCV 89.5 (80.0-98.0) fL MCH 30.8 (27.0-32.0) pg MCHC 34.4 (31.0-37.0) g/dL RDW Std Deviation 43.0 (28.0-62.0) fl RDW Coeff of Dennis 13 (11.0-15.0) % Plt Count 170 (150-400) K/uL MPV 11.60 (7.40-12.00) fL Neut % (Auto) 51.1 (48.0-80.0) % Lymph % (Auto) 36.1 (16.0-40.0) % [place] % (Auto) 9.4 (0.0-15.0) % Eos % (Auto) 3.0 (0.0-7.0) % Baso % (Auto) 0.4 (0.0-1.5) % Neut # (Auto) 4.8 (1.4-5.7) K/uL Lymph # (Auto) 3.4 H (0.6-2.4) K/uL [place] # (Auto) 0.9 H (0.0-0.8) K/uL Eos # (Auto) 0.3 (0.0-0.7) K/uL Baso # (Auto) 0.0 (0.0-0.1) K/uL Nucleated RBC % /100WBC Nucleated RBCs # K/uL INR APTT (18.6-31.3) SEC Sodium 142 (136-148) mmol/L Potassium 4.0 (3.5-5.1) mmol/L Chloride 105 (98-107) mmol/L Carbon Dioxide 27.0 (21.0-32.0) mmol/L BUN 14 (7.0-18.0) mg/dL Creatinine 1.0 (0.8-1.3) mg/dL Est Cr Clr Drug Dosing 87.67 mL/min Estimated GFR (MDRD) > 60.0 ml/min Glucose 168 H (74-106) mg/dL POC Glucose (60-110) mg/dL Hemoglobin A1c (4.5-6.2) % Calcium 7.9 L (8.5-10.1) mg/dL Phosphorus 3.8 (2.6-4.7) mg/dL Magnesium 1.6 L (1.8-2.4) mg/dL Total Bilirubin (0.2-1.0) mg/dL AST (15-37) IU/L ALT (14-63) IU/L Alkaline Phosphatase (46-116) U/L Troponin I (0.000-0.056) ng/mL Total Protein (6.4-8.2) g/dL Albumin (3.4-5.0) g/dL Globulin (2.6-4.0) g/dL Albumin/Globulin Ratio (0.9-1.6) Triglycerides 324 H (0-200) mg/dL Cholesterol 200 (50-200) mg/dL LDL Cholesterol, Calc 107 (60-180) mg/dL VLDL Cholesterol 64 H (5-55) mg/dL HDL Cholesterol 28 L (40-60) mg/dL Cholesterol/HDL Ratio 7.1 H (3.3-6.0) TSH 3rd Generation (0.36-3.74) uIU/mL Urine Color YELLOW Urine Appearance CLEAR Urine pH 6.0 (5.0-8.0) Ur Specific May 1.010 (1.001-1.035) Urine Protein NEGATIVE (NEGATIVE) mg/dL Urine Glucose (UA) >=1000 (NEGATIVE) mg/dL Urine Ketones NEGATIVE (NEGATIVE) mg/dL Urine Occult Blood NEGATIVE (NEGATIVE) Urine Nitrite NEGATIVE (NEGATIVE) Urine Bilirubin NEGATIVE (NEGATIVE) Urine Urobilinogen 0.2 (<2.0) EU/dL Ur Leukocyte Esterase NEGATIVE (NEGATIVE) Urine Opiates Screen (NEGATIVE) Ur Oxycodone Screen (NEGATIVE) Urine Methadone Screen (NEGATIVE) Ur Barbiturates Screen (NEGATIVE) Ur Phencyclidine Scrn (NEGATIVE) Ur Amphetamine Screen (NEGATIVE) U Methamphetamines Scrn (NEGATIVE) U Benzodiazepines Scrn (NEGATIVE) U Cocaine Metab Screen (NEGATIVE) U Marijuana (THC) Screen (NEGATIVE) 09/29/19 09/29/19 09/29/19 Range/Units 01:10 01:10 06:10 WBC (4.0-11.0) K/uL RBC (4.50-5.90) M/uL Hgb (13.0-17.0) g/dL Hct (38.0-50.0) % MCV (80.0-98.0) fL MCH (27.0-32.0) pg MCHC (31.0-37.0) g/dL RDW Std Deviation (28.0-62.0) fl RDW Coeff of Dennis (11.0-15.0) % Plt Count (150-400) K/uL MPV (7.40-12.00) fL Neut % (Auto) (48.0-80.0) % Lymph % (Auto) (16.0-40.0) % [place] % (Auto) (0.0-15.0) % Eos % (Auto) (0.0-7.0) % Baso % (Auto) (0.0-1.5) % Neut # (Auto) (1.4-5.7) K/uL Lymph # (Auto) (0.6-2.4) K/uL [place] # (Auto) (0.0-0.8) K/uL Eos # (Auto) (0.0-0.7) K/uL Baso # (Auto) (0.0-0.1) K/uL Nucleated RBC % /100WBC Nucleated RBCs # K/uL INR APTT (18.6-31.3) SEC Sodium (136-148) mmol/L Potassium (3.5-5.1) mmol/L Chloride (98-107) mmol/L Carbon Dioxide (21.0-32.0) mmol/L BUN (7.0-18.0) mg/dL Creatinine (0.8-1.3) mg/dL Est Cr Clr Drug Dosing mL/min Estimated GFR (MDRD) ml/min Glucose (74-106) mg/dL POC Glucose 159 H (60-110) mg/dL Hemoglobin A1c 8.3 H (4.5-6.2) % Calcium (8.5-10.1) mg/dL Phosphorus (2.6-4.7) mg/dL Magnesium (1.8-2.4) mg/dL Total Bilirubin (0.2-1.0) mg/dL AST (15-37) IU/L ALT (14-63) IU/L Alkaline Phosphatase (46-116) U/L Troponin I < 0.050 (0.000-0.056) ng/mL Total Protein (6.4-8.2) g/dL Albumin (3.4-5.0) g/dL Globulin (2.6-4.0) g/dL Albumin/Globulin Ratio (0.9-1.6) Triglycerides (0-200) mg/dL Cholesterol (50-200) mg/dL LDL Cholesterol, Calc (60-180) mg/dL VLDL Cholesterol (5-55) mg/dL HDL Cholesterol (40-60) mg/dL Cholesterol/HDL Ratio (3.3-6.0) TSH 3rd Generation (0.36-3.74) uIU/mL Urine Color Urine Appearance Urine pH (5.0-8.0) Ur Specific May (1.001-1.035) Urine Protein (NEGATIVE) mg/dL Urine Glucose (UA) (NEGATIVE) mg/dL Urine Ketones (NEGATIVE) mg/dL Urine Occult Blood (NEGATIVE) Urine Nitrite (NEGATIVE) Urine Bilirubin (NEGATIVE) Urine Urobilinogen (<2.0) EU/dL Ur Leukocyte Esterase (NEGATIVE) Urine Opiates Screen (NEGATIVE) Ur Oxycodone Screen (NEGATIVE) Urine Methadone Screen (NEGATIVE) Ur Barbiturates Screen (NEGATIVE) Ur Phencyclidine Scrn (NEGATIVE) Ur Amphetamine Screen (NEGATIVE) U Methamphetamines Scrn (NEGATIVE) U Benzodiazepines Scrn (NEGATIVE) U Cocaine Metab Screen (NEGATIVE) U Marijuana (THC) Screen (NEGATIVE) [place] Results Last 24 Hours: Microbiology 09/28/19 22:00 Anaerobic Blood Culture - Final Blood - Venous - Lab Draw 09/28/19 20:08 Influenza Type A Antigen Screen - Final Nasopharyngeal Swab NEGATIVE INFLUENZA A VIRUS AG REFERENCE RANGE: NEGATIVE Influenza Type B Antigen Screen - Final NEGATIVE INFLUENZA B VIRUS AG REFERENCE RANGE: NEGATIVE Med Orders - Current: Current Medications Apixaban (Eliquis) 5 mg PO BID [facility] Last Admin: 09/29/19 08:51 Dose: 5 mg Atorvastatin Calcium (Lipitor) 80 mg PO DAILY [facility] Last Admin: 09/29/19 08:52 Dose: 80 mg Duloxetine HCl (Cymbalta) 60 mg PO DAILY [facility] Last Admin: 09/29/19 08:52 Dose: 60 mg Famotidine (Pepcid) 20 mg PO BID PRN PRN Reason: Other Ceftriaxone Sodium/Dextrose 1 (gm/ Premix) 50 mls @ 100 mls/hr IV Q24H [facility] Insulin Aspart (Novolog) 0 unit SUBCUT TIDAC [facility]; Protocol Insulin Detemir (Levemir) 16 unit SUBCUT BEDTIME [facility] Last Admin: 09/29/19 00:24 Dose: 16 units Metoprolol Succinate (Toprol Xl) 100 mg PO DAILY [facility] Last Admin: 09/29/19 08:53 Dose: 100 mg Pregabalin (Lyrica) 200 mg PO TID [facility] Last Admin: 09/29/19 08:47 Dose: 200 mg Quetiapine Fumarate (Seroquel) 50 mg PO BEDTIME [facility] Last Admin: 09/28/19 23:20 Dose: 50 mg Sodium Chloride (Saline Flush) 10 ml FLUSH ASDIRECTED PRN PRN Reason: Keep Vein Open Sodium Chloride (Saline Flush) 2.5 ml FLUSH ASDIRECTED PRN PRN Reason: Keep Vein Open Sodium Chloride (Normal Saline) 10 ml IV ASDIRECTED PRN PRN Reason: IV Use Discontinued Medications Acetaminophen (Tylenol Extra Strength) 1,000 mg PO ONETIME ONE Stop: 09/28/19 20:01 Last Admin: 09/28/19 20:07 Dose: Not Given Apixaban (Eliquis) 200 mg PO BID [facility] Last Admin: 09/29/19 08:29 Dose: Not Given Azithromycin (Zithromax) 250 mg PO Q24H ONE Stop: 09/28/19 20:47 Last Admin: 09/28/19 22:16 Dose: Not Given Azithromycin 500 mg/ Sodium (Chloride) 250 mls @ 250 mls/hr IV ONETIME STA Stop: 09/28/19 21:00 Last Admin: 09/28/19 21:41 Dose: 250 mls/hr Ceftriaxone Sodium 1 gm/ (Sodium Chloride) 50 mls @ 100 mls/hr IV ONETIME ONE Stop: 09/28/19 20:31 Last Admin: 09/28/19 20:27 Dose: 100 mls/hr Magnesium Sulfate 2 gm/ Premix 50 mls @ 50 mls/hr IV ONETIME ONE Stop: 09/29/19 08:59 Last Admin: 09/29/19 08:52 Dose: 50 mls/hr Insulin Glargine (Lantus Solostar) 16 units SUBCUT BEDTIME [facility] Morphine Sulfate (Morphine) 2 mg IVPUSH ONETIME ONE Stop: 09/28/19 21:13 Last Admin: 09/28/19 21:39 Dose: 2 mg Morphine Sulfate (Morphine) 2 mg IVPUSH ONETIME ONE Stop: 09/29/19 01:38 Last Admin: 09/29/19 01:30 Dose: 2 mg Non-Formulary Medication (Ranitidine) 150 mg PO BID PRN PRN Reason: Other Trazodone HCl (Trazodone) 50 mg PO ONETIME ONE Stop: 09/28/19 22:31 Last Admin: 09/28/19 23:20 Dose: 50 mg Trazodone HCl (Trazodone) 50 mg PO ONETIME ONE Stop: 09/28/19 23:30 Last Admin: 09/29/19 00:04 Dose: 50 mg - Exam General: Alert, Oriented, Cooperative, No Acute Distress Lungs: Clear to Auscultation, Normal Respiratory Effort Cardiovascular: Regular Rate, Regular Rhythm GI/Abdominal Exam: Normal Bowel Sounds, Soft, Non-Tender Extremities: Normal Inspection, Normal Range of Motion, Non-Tender, No Pedal Edema, Arm Pain (R shulder pain, but able to move fairly easily. ) Neurological: No New Focal Deficit Psy/Mental Status: Alert, Normal Affect, Normal Mood - Problem List & Annotations (1) Right leg paresthesias SNOMED Code(s): 78442361776182708 Code(s): R20.2 - PARESTHESIA OF SKIN Status: Acute Current Visit: Yes (2) Atypical chest pain SNOMED Code(s): 149104127 Code(s): R07.89 - OTHER CHEST PAIN Status: Acute Priority: High Current Visit: No (3) Chronic neck pain SNOMED Code(s): 0261423580936 Code(s): M54.2 - CERVICALGIA; G89.29 - OTHER CHRONIC PAIN Status: Chronic Current Visit: No (4) History of paresthesia SNOMED Code(s): 473377148 Code(s): Z87.898 - PERSONAL HISTORY OF OTHER SPECIFIED CONDITIONS Status: Chronic Current Visit: No (5) Old cerebrovascular accident without late effect SNOMED Code(s): 809255521 Code(s): Z86.73 - PRSNL HX OF TIA (TIA), AND CEREB INFRC W/O RESID DEFICITS Status: Acute Current Visit: No (6) Tobacco abuse SNOMED Code(s): 585653741 Code(s): Z72.0 - TOBACCO USE Status: Acute Current Visit: No (7) Chronic anticoagulation SNOMED Code(s): 641455997 Code(s): Z79.01 - JAIL (CURRENT) USE OF ANTICOAGULANTS Status: Chronic Priority: High Current Visit: No (8) Diabetes mellitus type 2, controlled SNOMED Code(s): 14372080, 938433826 Code(s): E11.9 - TYPE 2 DIABETES MELLITUS WITHOUT COMPLICATIONS Status: Chronic Priority: High Current Visit: No Qualifiers: Diabetes mellitus ocean transportation intermediary insulin use: with senior care use Diabetes mellitus complication status: without complication Qualified Code(s): E11.9 - Type 2 diabetes mellitus without complications; Z79.4 - penitentiary (current) use of insulin (9) Insomnia disorder SNOMED Code(s): 780548194 Code(s): G47.00 - INSOMNIA, UNSPECIFIED Status: Chronic Priority: Medium Current Visit: No Qualifiers: Insomnia type: due to medical condition Qualified Code(s): G47.01 - Insomnia due to medical condition (10) Afib SNOMED Code(s): 41174471 Code(s): I48.91 - UNSPECIFIED ATRIAL FIBRILLATION Status: Chronic Current Visit: Yes Qualifiers: Atrial fibrillation type: paroxysmal Qualified Code(s): I48.0 - Paroxysmal atrial fibrillation - Problem List Review Problem List Initiated/Reviewed/Updated: Yes - My Orders Last 24 Hours: My Active Orders 09/29/19 07:58 Ang Head wo Cont [MR] Routine - Plan Plan:: 59 y/o M came in with c/o right LE paresthesia and fall, slight pronator drift on exam in ED, resolved now 1. R leg paraesthesia: Improved, ambulating well. reported intermittent dizziness. CT negative. MRI head and MRA head neck ordered. Echo pending as well. 2. Chest pain: EKG no signs of ischemia. No acute changes and troponins negative x 3. 3. Afib: Hx of multiple cardioversions and ablation in last 6 months. Cont Eliquis for paroxysmal Afib, current in sinus rhythm 4. Dm Type 2: SSI for DM. Monitor 5. Chronic back/neck pain: Continue Lyrica. 6. R shoulder pain: Obtained xray, which are negative. VTE prophylaxis: Continue Eliquis. Dispo: 1 day
[2019-09-29] MEDS: Insulin Aspart 100 Units/ML 3 ML Pen SUBCUT SCH ×3 (09:24→17:37)
[2019-09-29] MEDS: cefTRIAXone 1 GM in Premix Bag 1 BAG IV SCH (10:18)
[2019-09-29] MEDS ORDERED: Acetaminophen 325 MG Tab PO PRN (10:40)
--- NOTE | 2019-09-29 11:41 | CR ---
Right shoulder: Three views of the right shoulder were obtained. Comparison: No prior shoulder exam. Previous cervical spine surgery is noted. Acromioclavicular and glenohumeral joints appear within normal limits. No fracture, dislocation or other bony abnormality is seen. Impression: No acute abnormality is seen on right shoulder exam. Diagnostic code #2 This report was dictated in [place] Standard Time MTDD
[2019-09-29] MEDS ORDERED: LORazepam 2 MG/ML SDV IVPUSH ONE (11:59)
--- NOTE | 2019-09-29 14:33 | MR ---
INDICATION: Paresthesias. TECHNIQUE: Brain MRI without contrast. The following sequences were obtained: 3D T1 weighted sequence. DWI and ADC mapping sequences. Axial FLAIR, SWI and JOURDAN T2 weighted sequences. Magnetic Resonance Angiography of the head and neck without contrast. The following sequences were obtained: 3D TOF MRA of the intracranial circulation. 3D TOF MRA of the neck with all measurements are based on NASCET criteria. Maximum Intensity Reconstructions are provided. COMPARISON: CT head from 09/28/2019. FINDINGS: MRI Head: Fine detail degraded by motion artifact. No evidence of acute infarction. Right frontal operculum encephalomalacia and gliosis, with appearance most compatible with a chronic infarct. T1/FLAIR hyperintensity along the residual cortex compatible with laminar necrosis. Smaller separate chronic infarctions are also seen within the right posterior frontal lobe including the precentral gyrus as well as the right parietal cortex. No mass effect or herniation. No hydrocephalus or extra-axial collections. Posterior fossa is normal. The orbital contents are normal. No calvarial or skull base marrow signal abnormality. No obstructive sinus disease. No extracranial soft tissue findings. MRA Head: Motion artifact degrades fine detail. No high-grade stenosis or occlusion of the intracranial arterial circulation. MRA Neck: Motion artifact degrades fine detail. No high-grade stenosis or occlusion of the cervical arterial circulation. IMPRESSION: MRI head: 1. Motion artifact degrades fine detail. Accounting for this, no evidence of acute infarction. 2. 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 MRI head and neck: 1. Motion artifact degrades fine detail. 2. Accounting for this, no high-grade stenosis or occlusion of the craniocervical arterial circulation. Dictated by Greyson Colon MD @ Sep 29 2019 2:19PM Signed by Dr. Greyson Colon @ Sep 29 2019 2:32PM
--- NOTE | 2019-09-29 14:33 | MR ---
I included the dictation for this exam within the brain report from the same date. Dictated by Greyson Colon MD @ Sep 29 2019 2:20PM Signed by Dr. Greyson Colon @ Sep 29 2019 2:33PM
--- NOTE | 2019-09-29 14:36 | MR ---
Included the dictation for this exam within the brain report from the same date. Dictated by Greyson Colon MD @ Sep 29 2019 2:20PM Signed by Dr. Greyson Colon @ Sep 29 2019 2:34PM
[2019-09-29] MEDS ORDERED: Insulin Glargine,Human Rec. Analog 100 Units/ML 3 ML Pen SUBCUT SCH ×2 (21:00)
[2019-09-30] MEDS ORDERED: traZODone 50 MG Tab PO ONE (00:23)
[2019-09-30] MEDS: Pregabalin 200 MG Cap PO SCH (06:12)
[2019-09-30 07:09] LABS: BLOOD UREA NITROGEN,BUN 17 mg/dL (7.0-18.0); CHLORIDE,CL 104 mmol/L (98-107); GLUCOSE RANDOM 138 mg/dL (74-106); POTASSIUM,K 4.3 mmol/L (3.5-5.1); SODIUM,NA 138 mmol/L (136-148)
[2019-09-30] MEDS: Insulin Aspart 100 Units/ML 3 ML Pen SUBCUT SCH (07:51)
[2019-09-30] MEDS: Metoprolol Succinate 100 MG Tab.ER PO SCH (08:49)
[2019-09-30] MEDS: Apixaban 5 MG Tab PO SCH (08:49)
[2019-09-30] MEDS: atorvaSTATin 40 MG Tab PO SCH (08:49)
--- NOTE | 2019-09-30 08:51 | PCM.DCSUM1 ---
Discharge Summary - Hospital Course Brief History: Patient is a 59-year-old white male with PMH of diabetes, hypertension and chronic intermittent atrial fibrillation on anticoagulation who presents with a concern of right-sided numbness that began 24 hours prior to arrival. Patient also c/o intermittent chest pain, denied any associated SOB ,palpitations, diaphoresis nausea or vomiting. Patient also suffered a fall at home, denies injury but reports R arm pain since. Patients NIH stroke scale was 1 upon arrival for right lower extremity Drift. CT scan of brain was negative. CXR was normal. 1st troponin was negative as well. EKG didn't show any acute ischemic changes. Patient is being admitted for further management. Diagnosis: Stroke: No - Discharge Data Discharge Date: 09/30/19 Discharge Disposition: Home, Self-Care 01 Condition: Good - Referral to Home Health Primary Care Physician: Siddharth Randolph MD - Discharge Diagnosis/Problem(s) (1) Right leg paresthesias SNOMED Code(s): 50703507657834868 ICD Code: R20.2 - PARESTHESIA OF SKIN Status: Acute (2) Atypical chest pain SNOMED Code(s): 337760115 ICD Code: R07.89 - OTHER CHEST PAIN Status: Acute Priority: High (3) Chronic neck pain SNOMED Code(s): 5630929169950 ICD Code: M54.2 - CERVICALGIA; G89.29 - OTHER CHRONIC PAIN Status: Chronic (4) History of paresthesia SNOMED Code(s): 706916560 ICD Code: Z87.898 - PERSONAL HISTORY OF OTHER SPECIFIED CONDITIONS Status: Chronic (5) Old cerebrovascular accident without late effect SNOMED Code(s): 956649812 ICD Code: Z86.73 - PRSNL HX OF TIA (TIA), AND CEREB INFRC W/O RESID DEFICITS Status: Acute (6) Tobacco abuse SNOMED Code(s): 286150913 ICD Code: Z72.0 - TOBACCO USE Status: Acute (7) Chronic anticoagulation SNOMED Code(s): 768332134 ICD Code: Z79.01 - COMMISSIONER OF CONCILIATION (CURRENT) USE OF ANTICOAGULANTS Status: Chronic Priority: High (8) Diabetes mellitus type 2, controlled SNOMED Code(s): 59213775, 463740371 ICD Code: E11.9 - TYPE 2 DIABETES MELLITUS WITHOUT COMPLICATIONS Status: Chronic Priority: High Qualifiers: Diabetes mellitus 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 Diabetes mellitus complication status: without complication Qualified Code(s): E11.9 - Type 2 diabetes mellitus without complications; 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 (9) Insomnia disorder SNOMED Code(s): 687948801 ICD Code: G47.00 - INSOMNIA, UNSPECIFIED Status: Chronic Priority: Medium Qualifiers: Insomnia type: due to medical condition Qualified Code(s): G47.01 - Insomnia due to medical condition (10) Afib SNOMED Code(s): 29630044 ICD Code: I48.91 - UNSPECIFIED ATRIAL FIBRILLATION Status: Chronic Qualifiers: Atrial fibrillation type: paroxysmal Qualified Code(s): I48.0 - Paroxysmal atrial fibrillation - Patient Summary/Data Consults: Consultations 09/29/19 15:10 Consult to Physical Therapy [PT Evaluation and Treatment] [CONS] Routine - Patient Instructions Diet: Heart Healthy Diet, Diabetic Diet Activity: No Strenuous Activities Driving: Do Not Drive Showering/Bathing: May Shower Notify Provider of: Fever, Increased Pain, Swelling and Redness, Drainage, Nausea and/or Vomiting - Discharge Plan *PRESCRIPTION DRUG MONITORING PROGRAM REVIEWED*: Not Applicable *COPY OF PRESCRIPTION DRUG MONITORING REPORT IN PATIENT ALEAH: Not Applicable Prescriptions/Med Rec: Doxycycline [Vibramycin] 100 mg PO DAILY #10 tab Home Medications: Home Meds Apixaban [Eliquis] 5 mg PO BID 04/20/19 [History] DULoxetine HCl [Duloxetine HCl] 1 tab PO DAILY 04/20/19 [History] metFORMIN [Glucophage] 1,000 mg PO BID 04/20/19 [History] Metoprolol Succinate 100 mg PO DAILY 07/22/19 [History] QUEtiapine [SEROquel] 50 mg PO BEDTIME 07/22/19 [History] atorvaSTATin [Lipitor] 80 mg PO DAILY 08/07/19 [History] Ranitidine [Zantac] 150 mg PO BID PRN MDD Acid Appeals Referee 09/05/19 [History] Amiodarone [Cordarone] 200 mg PO DAILY 09/29/19 [History] Insulin Glargine,Hum.Rec.Anlog [Basaglar Kwikpen U-100] 16 unit SQ DAILY [History] Pantoprazole [ProTONIX] 40 mg PO DAILY 09/29/19 [History] Pregabalin [Lyrica] 200 mg PO TID 09/29/19 [History] traZODone HCl [Trazodone HCl] 100 mg PO BEDTIME 09/29/19 [History] Doxycycline [Vibramycin] 100 mg PO DAILY #10 tab 09/30/19 [Rx] Oxygen Therapy Mode: Room Air Patient Handouts: Doxycycline tablets or capsules, Nonspecific Chest Pain, Easy -to-Read Referrals: [facility] [Ordering Only Provider] - Zuleika Thompson MD [Physician] - 11/12/19 10:30 am Bruno Lew MD [Resident] - 10/06/19 2:30 pm - Discharge Summary/Plan Comment DC Time >30 min.: No Discharge Summary/Plan Comment: Admitting Diagnoses: R leg parathesia R arm pain Atypical chest pain Discharge diagnoses: R leg parathesia R arm pain Atypical chest pain-resolved Other PMH: Afib on anticoagulation- hx ablation and cardioversion Chronic neck and back pain Rustam was admitted secondary to R leg parathesia along with R arm pain and chest pain. Regarding R leg parathesis, some drift was noted in the ED, but resolved by admission. He was worked up for possible CVA as he is extremely high risk due to afib and recent cardioversion. MRI MRA obtained of head and neck, motion artificat was noted, but this revealed on encephalomalacia to R frontal region. It did mention possible cortical laminar necrosis, but I spoke with Dr Crespo who viewed MRI and felt this was encephalomalcia, secondary to history of previous CVAs. He is on appropriate stroke treatment. He was ambulating per self in room, intermittent parathesias noted, likely secondary to chronic back pain. R shoulder was xrayed due to fall at home, which returned normal. He was fairly sedated on home dosing of Lyrica, no added pain medications were given, besides Tylenol. Chest pain was monitored, troponins returned negative and EKG SR. He is to follow up with PCP an Cardiology as outpatient, these appointments will be arranged. He did mention he would be moving to [place] by the end of the month for good. Recommended the [facility] primary care provider immediately upon arriving to where he is going and contact the clinic and hospital so records can be sent to his new provider. He is to return to ED or clinic if concerns should arise. - Patient Data Vitals - Most Recent: Last Vital Signs Temp 98.7 F 09/30/19 07:49 Pulse 65 09/30/19 08:49 Resp 16 09/30/19 07:49 BP 129/80 09/30/19 08:49 Pulse Ox 95 09/30/19 07:49 Weight - Most Recent: 102.965 kg I&O - Last 24 hours: Intake & Output 09/29/19 09/30/19 09/30/19 22:59 06:59 14:59 Intake Total 680 Output Total 700 Balance -20 Lab Results - Last 24 hrs: Laboratory Results - last 24 hr 09/29/19 09/29/19 09/29/19 Range/Units 09:38 13:49 16:44 Sodium (136-148) mmol/L Potassium (3.5-5.1) mmol/L Chloride (98-107) mmol/L Carbon Dioxide (21.0-32.0) mmol/L BUN (7.0-18.0) mg/dL Creatinine (0.8-1.3) mg/dL Est Cr Clr Drug Dosing mL/min Estimated GFR (MDRD) ml/min Glucose (74-106) mg/dL POC Glucose 200 H 204 H 213 H (60-110) mg/dL Calcium (8.5-10.1) mg/dL Magnesium (1.8-2.4) mg/dL 09/30/19 09/30/19 09/30/19 Range/Units 06:14 06:32 07:44 Sodium 138 (136-148) mmol/L Potassium 4.3 (3.5-5.1) mmol/L Chloride 104 (98-107) mmol/L Carbon Dioxide 27.0 (21.0-32.0) mmol/L BUN 17 (7.0-18.0) mg/dL Creatinine 0.9 (0.8-1.3) mg/dL Est Cr Clr Drug Dosing 97.41 mL/min Estimated GFR (MDRD) > 60.0 ml/min Glucose 138 H (74-106) mg/dL POC Glucose 118 H 132 H (60-110) mg/dL Calcium 8.4 L (8.5-10.1) mg/dL Magnesium 2.0 (1.8-2.4) mg/dL NORMA Results - Last 24 hrs: Microbiology 09/28/19 22:00 Aerobic Blood Culture - Preliminary Blood - Venous - Lab Draw NO GROWTH AFTER 1 DAY Anaerobic Blood Culture - Final 09/28/19 21:45 Aerobic Blood Culture - Preliminary Blood - Venous NO GROWTH AFTER 1 DAY Anaerobic Blood Culture - Preliminary NO GROWTH AFTER 1 DAY Med Orders - Current: Current Medications Acetaminophen (Tylenol) 650 mg PO Q4H PRN PRN Reason: Pain Last Admin: 09/29/19 18:31 Dose: 650 mg Apixaban (Eliquis) 5 mg PO BID [facility] Last Admin: 09/30/19 08:49 Dose: 5 mg Atorvastatin Calcium (Lipitor) 80 mg PO DAILY [facility] Last Admin: 09/30/19 08:49 Dose: 80 mg Doxycycline Hyclate (Vibramycin) 100 mg PO BID [facility] Last Admin: 09/30/19 08:48 Dose: 100 mg Famotidine (Pepcid) 20 mg PO BID PRN PRN Reason: Other Ceftriaxone Sodium/Dextrose 1 (gm/ Premix) 50 mls @ 100 mls/hr IV Q24H [facility] Last Admin: 09/29/19 10:18 Dose: 100 mls/hr Insulin Aspart (Novolog) 0 unit SUBCUT TIDAC [facility]; Protocol Last Admin: 09/30/19 07:51 Dose: Not Given Insulin Detemir (Levemir) 16 unit SUBCUT BEDTIME [facility] Last Admin: 09/29/19 22:45 Dose: 16 units Metoprolol Succinate (Toprol Xl) 100 mg PO DAILY [facility] Last Admin: 09/30/19 08:49 Dose: 100 mg Pregabalin (Lyrica) 200 mg PO TID [facility] Last Admin: 09/30/19 06:12 Dose: 200 mg Quetiapine Fumarate (Seroquel) 50 mg PO BEDTIME [facility] Last Admin: 09/29/19 22:44 Dose: 50 mg Sodium Chloride (Saline Flush) 10 ml FLUSH ASDIRECTED PRN PRN Reason: Keep Vein Open Sodium Chloride (Saline Flush) 2.5 ml FLUSH ASDIRECTED PRN PRN Reason: Keep Vein Open Sodium Chloride (Normal Saline) 10 ml IV ASDIRECTED PRN PRN Reason: IV Use Discontinued Medications Acetaminophen (Tylenol Extra Strength) 1,000 mg PO ONETIME ONE Stop: 09/28/19 20:01 Last Admin: 09/28/19 20:07 Dose: Not Given Apixaban (Eliquis) 200 mg PO BID [facility] Last Admin: 09/29/19 08:29 Dose: Not Given Azithromycin (Zithromax) 250 mg PO Q24H ONE Stop: 09/28/19 20:47 Last Admin: 09/28/19 22:16 Dose: Not Given Duloxetine HCl (Cymbalta) 60 mg PO DAILY [facility] Last Admin: 09/29/19 08:52 Dose: 60 mg Azithromycin 500 mg/ Sodium (Chloride) 250 mls @ 250 mls/hr IV ONETIME STA Stop: 09/28/19 21:00 Last Admin: 09/28/19 21:41 Dose: 250 mls/hr Ceftriaxone Sodium 1 gm/ (Sodium Chloride) 50 mls @ 100 mls/hr IV ONETIME ONE Stop: 09/28/19 20:31 Last Admin: 09/28/19 20:27 Dose: 100 mls/hr Magnesium Sulfate 2 gm/ Premix 50 mls @ 50 mls/hr IV ONETIME ONE Stop: 09/29/19 08:59 Last Admin: 09/29/19 08:52 Dose: 50 mls/hr Insulin Glargine (Lantus Solostar) 16 units SUBCUT BEDTIME [facility]KO Lorazepam (Ativan) 1 mg IVPUSH ONETIME ONE Stop: 09/29/19 12:00 Last Admin: 09/29/19 12:00 Dose: 1 mg Morphine Sulfate (Morphine) 2 mg IVPUSH ONETIME ONE Stop: 09/28/19 21:13 Last Admin: 09/28/19 21:39 Dose: 2 mg Morphine Sulfate (Morphine) 2 mg IVPUSH ONETIME ONE Stop: 09/29/19 01:38 Last Admin: 09/29/19 01:30 Dose: 2 mg Non-Formulary Medication (Ranitidine) 150 mg PO BID PRN PRN Reason: Other Trazodone HCl (Trazodone) 50 mg PO ONETIME ONE Stop: 09/28/19 22:31 Last Admin: 09/28/19 23:20 Dose: 50 mg Trazodone HCl (Trazodone) 50 mg PO ONETIME ONE Stop: 09/28/19 23:30 Last Admin: 09/29/19 00:04 Dose: 50 mg Trazodone HCl (Trazodone) 50 mg PO ONETIME ONE Stop: 09/30/19 00:24
[2019-09-30] MEDS ORDERED: Doxycycline 100 MG Cap PO SCH (09:00)
[2019-09-30] MEDS: cefTRIAXone 1 GM in Premix Bag 1 BAG IV SCH ×2 (10:21→10:22)
--- NOTE | 2019-10-01 15:14 | ECHO ---
EXAM DATE: 09/28/19 PATIENT'S AGE: 59 The echocardiogram report can be seen in this patient's EMR (Electronic Medical Record) in the Reports section. The report has also been scanned into PACs. ALDO
== END 2019-09-30 10:44 | disposition home or self-care (01) ==
LOC: MW.ED 18:53 → MW.MS 20:05
PROVIDERS: ADMIT Student in an Organized Health Care Education/Training Program; ATTEND Student in an Organized Health Care Education/Training Program
DX: R20.2 Paresthesia of skin (principal); R07.89 Other chest pain; M79.601 Pain in right arm; G89.29 Other chronic pain; M54.2 Cervicalgia; E11.9 Type 2 diabetes mellitus without complications; I10 Essential (primary) hypertension; I48.20 Chronic atrial fibrillation, unspecified; G47.00 Insomnia, unspecified; F17.200 Nicotine dependence, unspecified, uncomplicated; Z86.73 Personal history of transient ischemic attack (TIA), and cerebral infarction without residual deficits; Z91.030 Bee allergy status; Z79.01 Long term (current) use of anticoagulants; Z79.4 Long term (current) use of insulin; Z79.899 Other long term (current) drug therapy
CPT/HCPCS: 36415; 70450; 70544; 70547; 70551; 71045; 73030; 80048; 80053; 80061; 80305; 81003; 82962; 83036; 83735; 84100; 84443; 84484; 85025; 85610; 85730; 87040; 87804; 93005; 93306; 96365; 99285; A9270; J0456; J0696; J1815; J2060; J2270; J3475; J7050; 96375; 96376; 99284; G0378

== ENCOUNTER 2019-10-30 13:43 | Emergency (ER) | payer MEDICARE ==
--- NOTE | 2019-10-30 15:48 | CR ---
Chest: 2 views of the chest were obtained. Comparison: Prior chest x-ray of 09/28/19. Heart size and mediastinum are normal. Lungs are clear with no acute parenchymal change. Bony structures appear within normal limits for the patient's age. Multiple surgical clips are seen within the upper abdomen. Impression: 1. Nothing acute is appreciated on 2 view chest x-ray. Diagnostic code #2 This report was dictated in [place] Standard Time
[2019-10-30 16:32] LABS: BLOOD UREA NITROGEN,BUN 8 mg/dL (7.0-18.0); CARBON DIOXIDE,CO2 25.8 mmol/L (21.0-32.0); CHLORIDE,CL 104 mmol/L (98-107); GLUCOSE RANDOM 181 mg/dL (74-106); POTASSIUM,K 4.3 mmol/L (3.5-5.1); SODIUM,NA 141 mmol/L (136-148)
[2019-10-30] MEDS ORDERED: Acetaminophen 325 MG Tab PO ONE (17:09)
--- NOTE | 2019-10-30 17:17 | EDM.PDOC ---
ED [facility] GENERAL MEDICAL PROBLEM - General Chief Complaint: Chest Pain Stated Complaint: CHEST PAIN Time Seen by Provider: 10/30/19 17:09 Source of Information: Reports: Patient History Limitations: Reports: No Limitations - History of Present Illness INITIAL COMMENTS - FREE TEXT/NARRATIVE: Patient is a 59-year-old male with a past medical history of paroxysmal A. fib status post ablation, high blood pressure, COPD and diabetes. Patient states he came to the emergency room because for the past few days he has been experiencing chest discomfort and increasing shortness of breath. The chest discomfort is associated with a productive cough. Patient has not taken any medications for the symptoms. It was have been progressive over time. The chest pain does not occur with any exertion. Patient denies feeling any associated palpitations. Patient denies any fevers, lower extremity swelling, or recent travels. In addition to that documented in the HPI above, the additional ROS was obtained : Constitutional: Denies fevers or chills Eyes: Denies vision changes ENMT: Reports positive sore throat CV: Per HPI Resp: Per HPI GI: Denies vomiting or diarrhea : Denies painful urination MSK: Denies recent trauma Skin: Denies new rashes Neuro: Denies new numbness or tingling or weakness Endocrine: Denies unexpected weight loss Heme: Denies bleeding disorders I have reviewed the triage vital signs Const: Well nourished, well developed, appears stated age Eyes: PERRL, no conjunctival injection HENT: NCAT, Neck supple without meningismus CV: RRR, Warm, well-perfused extremities RESP: CTAB, Unlabored respiratory effort GI: soft, non-tender, non-distended, no masses MSK: No gross deformities appreciated Skin: Warm, dry. 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 Sensation and motor function of extremities grossly intact. Psych: Appropriate mood and affect Assessment and plan Patient is a 59-year-old male presenting with chest pain cough and increasingly worsening shortness of breath. Patient's vital signs on arrival and during the stay have been stable. Patient was never any respiratory distress and is been comfortable the entire time. Broad differential diagnosis considered including acute coronary syndrome, pneumonia, COPD exacerbation, pneumothorax, pericarditis. Patient's labs are within normal limits. EKG and troponin are normal and did not demonstrate evidence of cardiac ischemia. Patient has a heart score of 3 at this time. Patient's chest x-ray within normal limits. After period of observation and reexamination, believe the symptoms are more consistent with an exacerbation of COPD bronchitis. Patient will be given steroids and outpatient follow-up. Patient given strict return precautions from a respiratory and cardiac standpoint. All questions addressed and answered. Patient agrees with plan Chest Pain Score (Numeric/FACES): 5 - Related Data Allergies Allergy/AdvReac Type Severity Reaction Status Date / Time bee venom protein (honey bee) Allergy Anaphylactic Verified 10/30/19 13:54 Shock Home Meds: Home Meds Apixaban [Eliquis] 5 mg PO BID 04/20/19 [History] DULoxetine HCl [Duloxetine HCl] 1 tab PO DAILY 04/20/19 [History] metFORMIN [Glucophage] 1,000 mg PO BID 04/20/19 [History] Metoprolol Succinate 100 mg PO DAILY 07/22/19 [History] QUEtiapine [SEROquel] 50 mg PO BEDTIME 07/22/19 [History] atorvaSTATin [Lipitor] 80 mg PO DAILY 08/07/19 [History] Ranitidine [Zantac] 150 mg PO BID PRN MDD Acid Toddler Guide 09/05/19 [History] Amiodarone [Cordarone] 200 mg PO DAILY 09/29/19 [History] Insulin Glargine,Hum.Rec.Anlog [Basaglar Kwikpen U-100] 16 unit SQ DAILY [History] Pantoprazole [ProTONIX] 40 mg PO DAILY 09/29/19 [History] Pregabalin [Lyrica] 200 mg PO TID 09/29/19 [History] traZODone HCl [Trazodone HCl] 100 mg PO BEDTIME 09/29/19 [History] Doxycycline [Vibramycin] 100 mg PO DAILY #10 tab 09/30/19 [Rx] Past Medical History HEENT History: Reports: None Other HEENT History: upper and lower dentures Cardiovascular History: Reports: Arrhythmia, Blood Clots/VTE/DVT, CAD, Hypertension Other Cardiovascular History: Afib w/ rvr Respiratory History: Reports: COPD Gastrointestinal History: Reports: Bowel Obstruction, GERD, Other (See Below) Other Gastrointestinal History: Intestinal rupture Genitourinary History: Reports: None Musculoskeletal History: Reports: Back Pain, Chronic, Fracture Neurological History: Reports: CVA Other Neuro History: 3 strokes in the last 1.5 years Psychiatric History: Reports: Anxiety, Depression Endocrine/Metabolic History: Reports: Diabetes, Type II Hematologic History: Reports: None Immunologic History: Reports: None Oncologic (Cancer) History: Reports: None Dermatologic History: Reports: None - Infectious Disease History Infectious Disease History: Reports: Chicken Pox - Past Surgical History Head Surgeries/Procedures: Reports: None Cardiovascular Surgical History: Reports: Cardiac Ablation, Other (See Below) Other Cardiovascular Surgeries/Procedures: Cardioversion ablation Respiratory Surgical History: Reports: None GI Surgical History: Reports: Colonoscopy, Small Bowel Musculoskeletal Surgical History: Reports: Other (See Below) Other Musculoskeletal Surgeries/Procedures:: 6 back surgeries, 2 neck surgeries , titanium plate in neck Social & Family History - Family History Family Medical History: Noncontributory Musculoskeletal: Reports: Gout Oncologic: Reports: Other (See Below) Other Oncologic Family History: patient states mother had cancer, unsure of what kind. - Tobacco Use Smoking Status *Q: Current Every Day Smoker Years of Tobacco use: 40 Packs/Tins Daily: 0.5 - Caffeine Use Caffeine Use: Reports: None Caffeine Use Comment: occasional/2 cups of coffee per week - Recreational Drug Use Recreational Drug Use: Yes Recreational Drug Type: Reports: Marijuana/Hashish Recreational Drug Use Frequency: Monthly - Living Situation & Occupation Living situation: Reports: with Family Occupation: Retired ED ROS GENERAL - Review of Systems Review Of Systems: See Below ED EXAM, GENERAL - Physical Exam Exam: See Below Course - Vital Signs Last Recorded V/S: Last Vital Signs Temp 37.1 C 10/30/19 13:54 Pulse 98 10/30/19 15:50 Resp 20 10/30/19 15:50 BP 122/97 H 10/30/19 15:50 Pulse Ox 95 10/30/19 15:50 - Orders/Labs/Meds Orders: Active Orders 24 hr Category Date Time Status Acetaminophen [Tylenol] Med 10/30/19 17:09 Once 650 mg PO NOW ONE predniSONE Med 10/31/19 17:08 Once 40 mg PO ONETIME ONE Medication Orders Acetaminophen (Tylenol) 650 mg PO NOW ONE Stop: 10/30/19 17:10 Prednisone (Prednisone) 40 mg PO ONETIME ONE Stop: 10/31/19 17:09 Labs: Laboratory Tests 10/30/19 10/30/19 10/30/19 Range/Units 13:59 15:50 15:50 WBC 9.38 (4.0-11.0) K/uL RBC 5.20 (4.50-5.90) M/uL Hgb 15.9 (13.0-17.0) g/dL Hct 48.4 (38.0-50.0) % MCV 93.1 (80.0-98.0) fL MCH 30.6 (27.0-32.0) pg MCHC 32.9 (31.0-37.0) g/dL RDW Std Deviation 50.4 (28.0-62.0) fl RDW Coeff of Dennis 15 (11.0-15.0) % Plt Count 182 (150-400) K/uL MPV 11.20 (7.40-12.00) fL Neut % (Auto) 48.7 (48.0-80.0) % Lymph % (Auto) 38.9 (16.0-40.0) % Falls % (Auto) 9.3 (0.0-15.0) % Eos % (Auto) 2.8 (0.0-7.0) % Baso % (Auto) 0.3 (0.0-1.5) % Neut # (Auto) 4.6 (1.4-5.7) K/uL Lymph # (Auto) 3.7 H (0.6-2.4) K/uL Falls # (Auto) 0.9 H (0.0-0.8) K/uL Eos # (Auto) 0.3 (0.0-0.7) K/uL Baso # (Auto) 0.0 (0.0-0.1) K/uL Nucleated RBC % 0.0 /100WBC Nucleated RBCs # 0 K/uL Sodium 141 (136-148) mmol/L Potassium 4.3 (3.5-5.1) mmol/L Chloride 104 (98-107) mmol/L Carbon Dioxide 25.8 (21.0-32.0) mmol/L BUN 8 (7.0-18.0) mg/dL Creatinine 1.1 (0.8-1.3) mg/dL Est Cr Clr Drug Dosing 68.23 mL/min Estimated GFR (MDRD) > 60.0 ml/min Glucose 181 H (74-106) mg/dL POC Glucose 168 H (60-110) mg/dL Calcium 8.6 (8.5-10.1) mg/dL Total Bilirubin 0.2 (0.2-1.0) mg/dL AST 14 L (15-37) IU/L ALT 30 (14-63) IU/L Alkaline Phosphatase 78 (46-116) U/L Troponin I < 0.050 (0.000-0.056) ng/mL Total Protein 7.4 (6.4-8.2) g/dL Albumin 3.8 (3.4-5.0) g/dL Globulin 3.6 (2.6-4.0) g/dL Albumin/Globulin Ratio 1.1 (0.9-1.6) Meds: Medications Generic Name Dose Route Start Last Admin Trade Name Freq PRN Reason Stop Dose Admin Acetaminophen 650 mg 10/30/19 17:09 Tylenol PO 10/30/19 17:10 NOW ONE Prednisone 40 mg 10/31/19 17:08 Prednisone PO 10/31/19 17:09 ONETIME ONE Departure - Departure Time of Disposition: 17:17 Disposition: Home, Self-Care 01 Clinical Impression: Acute bronchitis - Discharge Information Instructions: Acute Bronchitis, Adult Referrals: Siddharth Randolph MD [Primary Care Provider] - Sepsis Event Note - Evaluation Sepsis Screening Result: No Definite Risk - Focused Exam Vital Signs: Vital Signs Temp Pulse Resp BP Pulse Ox 10/30/19 15:50 98 20 122/97 H 95 10/30/19 14:25 101 H 18 131/97 H 94 L 10/30/19 14:03 100 97 10/30/19 13:54 37.1 C 108 H 19 159/105 H 91 L Date Exam was Performed: 10/30/19 Time Exam was Performed: 17:09 - My Orders Last 24 Hours: My Active Orders 10/30/19 17:09 Acetaminophen [Tylenol] 650 mg PO NOW ONE 10/31/19 17:08 predniSONE 40 mg PO ONETIME ONE - Assessment/Plan Last 24 Hours: My Active Orders 10/30/19 17:09 Acetaminophen [Tylenol] 650 mg PO NOW ONE 10/31/19 17:08 predniSONE 40 mg PO ONETIME ONE
[2019-10-30] MEDS ORDERED: predniSONE 20 MG Tab ONE (17:29)
[2019-10-31] MEDS ORDERED: predniSONE 20 MG Tab PO ONE (17:08)
== END 2019-10-30 17:34 | disposition home or self-care (01) ==
LOC: MW.ED 13:43
DX: J20.9 Acute bronchitis, unspecified (principal); F17.210 Nicotine dependence, cigarettes, uncomplicated; J44.9 Chronic obstructive pulmonary disease, unspecified; Z79.4 Long term (current) use of insulin; Z79.899 Other long term (current) drug therapy; Z91.030 Bee allergy status
CPT/HCPCS: 36415; 71046; 80053; 82962; 84484; 85025; 93005; 99285; A9270

== ENCOUNTER 2021-08-15 19:22 | Observation (INO) | payer MEDICARE, MEDICAID ==
[2021-08-15] MEDS ORDERED: Sodium Chloride 0.9% 10 ML Syringe FLUSH PRN (19:42)
[2021-08-15] MEDS ORDERED: Sodium Chloride 0.9% 2.5 ML Syringe FLUSH PRN (19:42)
[2021-08-15] MEDS ORDERED: HYDROmorphone 2 MG/ML Syringe IVPUSH ONE (19:48)
[2021-08-15] MEDS ORDERED: Nitroglycerin 2% Oint 1 GM UD Packet TOP ONE (19:48)
[2021-08-15] MEDS ORDERED: Pantoprazole 40 MG in Sodium Chloride 0.9% 20 ML IVPUSH ONE (19:49)
--- NOTE | 2021-08-15 19:52 | EDM.PDOC ---
ED HPI GENERAL MEDICAL PROBLEM - General Chief Complaint: Cardiovascular Problem Stated Complaint: EMS ARRIVAL Time Seen by Provider: 08/15/21 19:44 - History of Present Illness INITIAL COMMENTS - FREE TEXT/NARRATIVE: History of present illness: 61-year-old male has chest pain is started 1/2-hour before he got here. It 7 out of 10 after Dilaudid and nitroglycerin x3 in 4 baby aspirin in route. The chest pain happened while he was at rest but then he tried to go up steps and was diaphoretic short of breath when he got worse. Its not really much better resting. It is in the center of his chest. Is worse when he breathes. Is worse with exertion. He has a history of some sort of acid disorder in his stomach and takes a PPI. Patient still suffering with pain when I see him. He is not diaphoretic at this time. He attributes that to the cooler temperature in route. He holds his chest. When he breathes to auscultate his chest it hurts. He has tenderness in the epigastrium as well. Review of systems: As per history of present illness and below otherwise all systems reviewed and negative. Past medical history: As per history of present illness and as reviewed below otherwise noncontributory. Surgical history: As per history of present illness and as reviewed below otherwise noncontributory. Social history: No reported history of drug or alcohol abuse. Family history: As per history of present illness and as reviewed below otherwise noncontributory. Physical exam: Constitutional - well developed, well-nourished and in no acute distress HEENT - normocephalic, no evidence of trauma - external nose and mouth normal - no mass in neck and no JVD - mucosae moist EYES - full EOM, PERRL, no icterus - no evidence of inflammation, injection, or drainage Respiratory - no respiratory distress, equal bilateral expansion, lungs clear to auscultation and no abnormal lung sounds Cardiovascular - Regular Rhythm with S1 and S2 appreciated and no murmur, gallop or rub. GI -tender epigastrium. Abdomen soft without distension or organomegaly - normal bowel sounds - no guard or rebound Musculoskeletal no gross deformity of long bones or joints - no tenderness, swelling or edema Neurologic - Alert and oriented times four - CN II-XII grossly intact - motor sensory and coordination symmetrically normal Psychiatric - appropriate mood and affect with normal thought content Hematologic - No petechiae or purpura - mucosa appropriate color and sclera not pale - normal nail bed color and refill Integument - no rash or evidence of trauma - normal turgor Diagnostics: [] Therapeutics: [] Impression: [] Plan: [] Definitive disposition and diagnosis as appropriate pending reevaluation and review of above. Chest Pain Score (Numeric/FACES): 8 - Related Data Allergies Allergy/AdvReac Type Severity Reaction Status Date / Time bee venom protein (honey bee) Allergy Anaphylactic Verified 08/15/21 19:38 Shock Home Meds: Home Meds Apixaban [Eliquis] 5 mg PO BID 04/20/19 [History] DULoxetine HCl [Duloxetine HCl] 1 tab PO DAILY 04/20/19 [History] metFORMIN [Glucophage] 1,000 mg PO BID 04/20/19 [History] Metoprolol Succinate 100 mg PO DAILY 07/22/19 [History] QUEtiapine [SEROquel] 50 mg PO BEDTIME 07/22/19 [History] atorvaSTATin [Lipitor] 80 mg PO DAILY 08/07/19 [History] Ranitidine [Zantac] 150 mg PO BID PRN MDD Acid [employer] 09/05/19 [History] Amiodarone [Cordarone] 200 mg PO DAILY 09/29/19 [History] Insulin Glargine,Hum.Rec.Anlog [Basaglar Kwikpen U-100] 16 unit SQ DAILY 09/29/19 [History] Pantoprazole [ProTONIX] 40 mg PO DAILY 09/29/19 [History] Pregabalin [Lyrica] 200 mg PO TID 09/29/19 [History] traZODone HCl [Trazodone HCl] 100 mg PO BEDTIME 09/29/19 [History] Doxycycline [Vibramycin] 100 mg PO DAILY #10 tab 09/30/19 [Rx] Past Medical History HEENT History: Reports: None Other HEENT History: upper and lower dentures Cardiovascular History: Reports: Arrhythmia, Blood Clots/VTE/DVT, CAD, Hypertension Other Cardiovascular History: Afib w/ rvr Respiratory History: Reports: COPD Gastrointestinal History: Reports: Bowel Obstruction, GERD, Other (See Below) Other Gastrointestinal History: Intestinal rupture Genitourinary History: Reports: None Musculoskeletal History: Reports: Back Pain, Chronic, Fracture Neurological History: Reports: CVA Other Neuro History: 3 strokes in the last 1.5 years Psychiatric History: Reports: Anxiety, Depression Endocrine/Metabolic History: Reports: Diabetes, Type II Hematologic History: Reports: None Immunologic History: Reports: None Oncologic (Cancer) History: Reports: None Dermatologic History: Reports: None - Infectious Disease History Infectious Disease History: Reports: Chicken Pox - Past Surgical History Head Surgeries/Procedures: Reports: None HEENT Surgical History: Reports: None Cardiovascular Surgical History: Reports: Cardiac Ablation, Other (See Below) Other Cardiovascular Surgeries/Procedures: Cardioversion ablation Respiratory Surgical History: Reports: None GI Surgical History: Reports: Colonoscopy, Small Bowel Male Surgical History: Reports: None Endocrine Surgical History: Reports: None Neurological Surgical History: Reports: None Musculoskeletal Surgical History: Reports: Other (See Below) Other Musculoskeletal Surgeries/Procedures:: 6 back surgeries, 2 neck surgeries, titanium plate in neck Oncologic Surgical History: Reports: None Dermatological Surgical History: Reports: None Social & Family History - Family History Family Medical History: No Pertinent Family History Musculoskeletal: Reports: Gout Oncologic: Reports: Other (See Below) Other Oncologic Family History: patient states mother had cancer, unsure of what kind. - Tobacco Use Second Hand Smoke Exposure: No - Caffeine Use Caffeine Use: Reports: None Caffeine Use Comment: occasional/2 cups of coffee per week - Recreational Drug Use Recreational Drug Use: No - Living Situation & Occupation Living situation: Reports: with Family Occupation: Retired ED ROS GENERAL - Review of Systems Review Of Systems: Comprehensive ROS is negative, except as noted in HPI. ED EXAM, GENERAL - Physical Exam Exam: See Below Free Text/Narrative:: My physical exam is in the HPI #1 Interpretation EKG Interpretation Comments: EKG done 08/15/2021 at 7:26 PM shows a sinus rhythm heart rate 92 VT 168 axis 70 late transition R wave in the precordium nonspecific ST changes no prior available immediately for my comparison and there is no obvious injury. Impression no obvious injury Course - Vital Signs Last Recorded V/S: Last Vital Signs Temp 36.3 C 08/16/21 03:37 Pulse 78 08/16/21 03:37 Resp 16 08/16/21 03:37 BP 134/94 H 08/16/21 03:37 Pulse Ox 97 08/16/21 03:37 - Orders/Labs/Meds Orders: Active Orders 24 hr Category Date Time Status Admission Status [Patient Status] [ADT] Stat ADT 08/16/21 03:37 Ordered Sodium Chloride 0.9% [Saline Flush] Med 08/15/21 19:42 Active 10 ml FLUSH ASDIRECTED PRN Sodium Chloride 0.9% [Saline Flush] Med 08/15/21 19:42 Active 2.5 ml FLUSH ASDIRECTED PRN Saline Lock Insert [OM.PC] Stat Oth 08/15/21 19:42 Ordered Medication Orders Sodium Chloride (Sodium Chloride 0.9% 10 Ml Syringe) 10 ml FLUSH ASDIRECTED PRN PRN Reason: Keep Vein Open Last Admin: 08/15/21 22:32 Dose: 10 ml Documented by: ROSALES Sodium Chloride (Sodium Chloride 0.9% 2.5 Ml Syringe) 2.5 ml FLUSH ASDIRECTED PRN PRN Reason: Keep Vein Open Last Admin: 08/15/21 22:32 Dose: 2.5 ml Documented by: ROSALES Labs: Laboratory Tests 08/15/21 08/15/21 08/15/21 Range/Units 20:27 20:27 20:27 WBC 11.81 H (4.0-11.0) K/uL RBC 5.05 (4.50-5.90) M/uL Hgb 16.0 (13.0-17.0) g/dL Hct 46.4 (38.0-50.0) % MCV 91.9 (80.0-98.0) fL MCH 31.7 (27.0-32.0) pg MCHC 34.5 (31.0-37.0) g/dL RDW Std Deviation 45.0 (28.0-62.0) fl RDW Coeff of Dennis 14 (11.0-15.0) % Plt Count 196 (150-400) K/uL MPV 11.30 (7.40-12.00) fL Neut % (Auto) 56.8 (48.0-80.0) % Lymph % (Auto) 33.3 (16.0-40.0) % [place] % (Auto) 7.7 (0.0-15.0) % Eos % (Auto) 1.9 (0.0-7.0) % Baso % (Auto) 0.3 (0.0-1.5) % Neut # (Auto) 6.7 H (1.4-5.7) K/uL Lymph # (Auto) 3.9 H (0.6-2.4) K/uL [place] # (Auto) 0.9 H (0.0-0.8) K/uL Eos # (Auto) 0.2 (0.0-0.7) K/uL Baso # (Auto) 0.0 (0.0-0.1) K/uL Nucleated RBC % 0.0 /100WBC Nucleated RBCs # 0 K/uL D-Dimer, Quantitative 0.51 H (0.0-0.50) mg/L FEU Sodium 137 (136-148) mmol/L Potassium 4.1 (3.5-5.1) mmol/L Chloride 101 (98-107) mmol/L Carbon Dioxide 25.2 (21.0-32.0) mmol/L BUN 11 (7.0-18.0) mg/dL Creatinine 0.8 (0.8-1.3) mg/dL Est Cr Clr Drug Dosing 133.40 mL/min Estimated GFR (MDRD) > 60.0 ml/min Glucose 175 H (74-106) mg/dL Calcium 8.7 (8.5-10.1) mg/dL Total Bilirubin 0.7 (0.2-1.0) mg/dL AST 27 (15-37) IU/L ALT 31 (14-63) IU/L Alkaline Phosphatase 59 (46-116) U/L Troponin I < 0.050 (0.000-0.056) ng/mL Total Protein 7.7 (6.4-8.2) g/dL Albumin 3.5 (3.4-5.0) g/dL Globulin 4.2 H (2.6-4.0) g/dL Albumin/Globulin Ratio 0.8 L (0.9-1.6) SARS-CoV-2 RNA (MARCUS) (NEGATIVE) 08/15/21 08/16/21 Range/Units 22:30 00:35 WBC (4.0-11.0) K/uL RBC (4.50-5.90) M/uL Hgb (13.0-17.0) g/dL Hct (38.0-50.0) % MCV (80.0-98.0) fL MCH (27.0-32.0) pg MCHC (31.0-37.0) g/dL RDW Std Deviation (28.0-62.0) fl RDW Coeff of Dennis (11.0-15.0) % Plt Count (150-400) K/uL MPV (7.40-12.00) fL Neut % (Auto) (48.0-80.0) % Lymph % (Auto) (16.0-40.0) % [place] % (Auto) (0.0-15.0) % Eos % (Auto) (0.0-7.0) % Baso % (Auto) (0.0-1.5) % Neut # (Auto) (1.4-5.7) K/uL Lymph # (Auto) (0.6-2.4) K/uL [place] # (Auto) (0.0-0.8) K/uL Eos # (Auto) (0.0-0.7) K/uL Baso # (Auto) (0.0-0.1) K/uL Nucleated RBC % /100WBC Nucleated RBCs # K/uL D-Dimer, Quantitative (0.0-0.50) mg/L FEU Sodium (136-148) mmol/L Potassium (3.5-5.1) mmol/L Chloride (98-107) mmol/L Carbon Dioxide (21.0-32.0) mmol/L BUN (7.0-18.0) mg/dL Creatinine (0.8-1.3) mg/dL Est Cr Clr Drug Dosing mL/min Estimated GFR (MDRD) ml/min Glucose (74-106) mg/dL Calcium (8.5-10.1) mg/dL Total Bilirubin (0.2-1.0) mg/dL AST (15-37) IU/L ALT (14-63) IU/L Alkaline Phosphatase (46-116) U/L Troponin I < 0.050 (0.000-0.056) ng/mL Total Protein (6.4-8.2) g/dL Albumin (3.4-5.0) g/dL Globulin (2.6-4.0) g/dL Albumin/Globulin Ratio (0.9-1.6) SARS-CoV-2 RNA (MARCUS) NEGATIVE (NEGATIVE) Meds: Medications Generic Name Dose Route Start Last Admin Trade Name Andreaq PRN Reason Stop Dose Admin Sodium Chloride 10 ml 08/15/21 19:42 08/15/21 22:32 Sodium Chloride 0.9% 10 Ml Syringe FLUSH 10 ml ASDIRECTED PRN Administration Keep Vein Open Sodium Chloride 2.5 ml 08/15/21 19:42 08/15/21 22:32 Sodium Chloride 0.9% 2.5 Ml Syringe FLUSH 2.5 ml ASDIRECTED PRN Administration Keep Vein Open Discontinued Medications Generic Name Dose Route Start Last Admin Trade Name Andreaq PRN Reason Stop Dose Admin Hydromorphone HCl 1 mg 08/15/21 19:48 08/15/21 20:32 Hydromorphone 2 Mg/Ml Syringe IVPUSH 08/15/21 19:49 1 mg ONETIME ONE Administration Hydromorphone HCl 1 mg 08/15/21 22:23 08/15/21 22:26 Hydromorphone 1 Mg/Ml Syringe IVPUSH 08/15/21 22:24 1 mg ONETIME ONE Administration Hydromorphone HCl 1 mg 08/16/21 02:25 08/16/21 02:31 Hydromorphone 2 Mg/Ml Syringe IVPUSH 08/16/21 02:26 1 mg ONETIME ONE Administration Pantoprazole Sodium 40 mg/ 20 mls @ 420 mls/hr 08/15/21 19:49 08/15/21 20:31 Sodium Chloride IVPUSH 08/15/21 19:51 420 mls/hr ONETIME ONE Administration Iopamidol 100 ml 08/16/21 00:31 08/16/21 00:36 Iopamidol 755 Mg/Ml 100 Ml Bottle IVPUSH 08/16/21 00:32 100 ml ONETIME ONE Administration Labetalol HCl 20 mg 08/15/21 20:51 08/15/21 21:44 Labetalol 100 Mg/20 Ml Mdv IVPUSH 08/15/21 20:52 20 mg ONETIME ONE Administration Protocol Nitroglycerin 1 gm 08/15/21 19:48 08/15/21 20:33 Nitroglycerin 2% Oint 1 Gm Ud Packet TOP 08/15/21 19:49 1 gm ONETIME ONE Administration - Re-Assessments/Exams Free Text/Narrative Re-Assessment/Exam: 08/15/21 20:52 BP out of control - feels better Free Text/Narrative Re-Assessment/Exam: 08/16/21 03:38 Enzymes remain negative but because of his history I wanted a more formal rule out and longer observation with repeat enzymes. Discussed with Dr. Romero and admitted Departure - Departure Time of Disposition: 03:39 Disposition: Refer to Observation Condition: Good Clinical Impression: Hypertension Chest pain Qualifiers: Chest pain type: unspecified Qualified Code(s): R07.9 - Chest pain, unspecified Forms: ED Department Discharge Sepsis Event Note (ED) - Evaluation Sepsis Screening Result: No Definite Risk - Focused Exam Vital Signs: Vital Signs Temp Pulse Resp BP Pulse Ox 08/16/21 03:37 36.3 C 78 16 134/94 H 97 08/15/21 23:00 74 138/83 08/15/21 22:16 67 144/93 H 99 08/15/21 21:51 91 18 150/129 H 99 08/15/21 19:36 36.7 C 94 20 167/113 H 95 - My Orders Last 24 Hours: My Active Orders 08/16/21 03:37 Admission Status [Patient Status] [ADT] Stat - Assessment/Plan Last 24 Hours: My Active Orders 08/16/21 03:37 Admission Status [Patient Status] [ADT] Stat
--- NOTE | 2021-08-15 20:33 | CR ---
INDICATION: Chest pain TECHNIQUE: Portable upright AP view of the chest COMPARISON: AP and lateral chest radiographs 10/30/2019 FINDINGS: The lungs are clear. There is no sizable pleural effusion or pneumothorax. The cardiomediastinal silhouette is normal. The thoracic osseous structures are unremarkable. IMPRESSION: No acute intrathoracic process. Dictated by Juan Seals MD @ 08/15/2021 8:32:33 PM (Electronically Signed)
[2021-08-15] MEDS ORDERED: Labetalol 100 MG/20 ML MDV IVPUSH ONE (20:51)
[2021-08-15 21:14] LABS: BLOOD UREA NITROGEN,BUN 11 mg/dL (7.0-18.0); CARBON DIOXIDE,CO2 25.2 mmol/L (21.0-32.0); CHLORIDE,CL 101 mmol/L (98-107); GLUCOSE RANDOM 175 mg/dL (74-106); POTASSIUM,K 4.1 mmol/L (3.5-5.1); SODIUM,NA 137 mmol/L (136-148)
[2021-08-15] MEDS ORDERED: HYDROmorphone 1 MG/ML Syringe IVPUSH ONE (22:23)
[2021-08-16] MEDS ORDERED: Iopamidol 755 Mg/ML 100 ML Bottle IVPUSH ONE (00:31)
--- NOTE | 2021-08-16 01:50 | CT ---
INDICATION: Chest and abdominal pain with elevated D-dimer. COMPARISON: Chest radiograph from earlier today TECHNIQUE: CT examination of the chest was performed with the uneventful intravenous administration of 100 cc of Isovue 370 while 1 and 3 mm thick axial sections were obtained through the pulmonary arteries. Please note that all CT scans at this facility use dose modulation, iterative reconstruction, and/or weight-based dosing when appropriate to reduce radiation dose to as low as reasonably achievable. FINDINGS: : There is no sign of pulmonary embolism, with normal enhancement and branching of the pulmonary arteries. There is moderate honeycombing of the posterior right lower lobe, more prominently involving the superior segment than the posterior basilar segment, consistent with previous inflammatory disease. There is minimal reticular peripheral honeycombing in the posterior left lower lobe consistent with additional previous inflammatory disease. A moderate sized bulla is seen along the medial aspect of the left upper lobe adjacent to the left heart border. Mild peripheral bullous disease is seen in the apices, right greater than left. There is no sign of mediastinal or hilar mass or adenopathy. There is mild triple-vessel coronary calcification. The heart is normal in size. There is age appropriate appearance of the thoracic aorta and ascending great vessels. There is no sign of supraclavicular or axillary mass or adenopathy. The visualized superior liver, spleen, pancreas, and adrenals are normal in appearance. A probable cyst arises from the upper pole of the left kidney measuring at least 3.4 centimeters in diameter. The entirety of the cyst is not included on today`s study. The osseous structures are normal in appearance for the patient`s age. IMPRESSION: No sign of pulmonary embolism. Moderate peripheral honeycombing in the posterior portion of the right lower lobe, more prominent in the superior segments, consistent with previous inflammatory disease. Minimal peripheral honeycombing in the posterior left lower lobe toward the lung base from previous inflammatory disease. Mild peripheral bullous disease, more prominent in the right apex than the left. Please note that all CT scans at this facility use dose modulation, iterative reconstruction, and/or weight-based dosing when appropriate to reduce radiation dose to as low as reasonably achievable. Dictated by Alessio Whittaker MD @ 08/16/2021 1:48:34 AM (Electronically Signed)
--- NOTE | 2021-08-16 02:00 | CT ---
INDICATION: Chest and abdominal pain. Elevated D-dimer. COMPARISON: CT pulmonary angiogram from today. TECHNIQUE: CT examination of the abdomen and pelvis was performed with the uneventful intravenous administration of Isovue 370 as part of the accompanying CT angiogram of the chest while 2 and 3 mm thick axial sections were obtained from the lung bases through the pubic symphysis. Oral contrast was not administered. Please note that all CT scans at this facility use dose modulation, iterative reconstruction, and/or weight-based dosing when appropriate to reduce radiation dose to as low as reasonably achievable. FINDINGS: In the abdomen, the liver is low in density, representing fatty infiltration. There is no sign of mass. The spleen, pancreas and adrenals are normal in appearance. Multiple simple cysts arise from the left kidney, consistent with autosomal dominant polycystic kidney disease. The largest arises from the upper pole, measuring 6.6 by 6.4 centimeters. Interestingly, there are only 2 small cysts arising from the right kidney, the largest arising from the posterior lower pole measuring 1.1 centimeters in diameter. The gallbladder is normal in appearance. There is mild focal dilatation of the midportion of the infrarenal abdominal aorta with a maximal AP diameter of 2.8 centimeters, not reaching the 3.0 centimeter threshold 2 require routine surveillance. There is no sign of retroperitoneal mass or adenopathy. The stomach, loops of small bowel, and colon in the abdomen are normal in appearance. In the pelvis, the appendix is nonvisualized, but there is no sign of an inflammatory process in the area of the appendix. The loops of small bowel and colon in the pelvis are normal in appearance. The prostate is normal in appearance. The urinary bladder is normal in appearance. There is no sign of pelvic or inguinal mass or adenopathy. There is no sign of free air or free fluid in the abdomen or pelvis. The lung bases are clear. There is severe L4-5 disc degenerative disease with probable fusion in anatomic alignment. There is moderate L1-2 disc degenerative disease. There is mild L3-4 and L5-S1 disc degenerative disease. There is mild scoliosis of the lumbar spine convex towards the right. IMPRESSION: Nothing seen to explain the patient`s abdominal pain. CT of the abdomen shows mild dilatation of the midportion of the infrarenal abdominal aorta measuring 2.8 centimeters in AP diameter, not reaching the 3.0 centimeter threshold to suggest routine surveillance. Fatty infiltration of the liver. Multiple cysts seen in the left kidney, consistent with autosomal dominant polycystic kidney disease. Only a few small cysts are seen in the right kidney. Normal CT of the pelvis with contrast. Please note that all CT scans at this facility use dose modulation, iterative reconstruction, and/or weight-based dosing when appropriate to reduce radiation dose to as low as reasonably achievable. Dictated by Alessio Whittaker MD @ 08/16/2021 1:58:49 AM (Electronically Signed)
[2021-08-16] MEDS ORDERED: HYDROmorphone 2 MG/ML Syringe IVPUSH ONE (02:25)
[2021-08-16] MEDS ORDERED: Acetaminophen 325 MG Tab PO PRN (04:41)
[2021-08-16] MEDS ORDERED: Morphine 10 MG/ML Syringe IVPUSH PRN (04:41)
[2021-08-16] MEDS ORDERED: Albuterol/Ipratropium 3.0-0.5 MG/3 ML Neb Soln NEB PRN (04:41)
[2021-08-16] MEDS ORDERED: Ondansetron 4 MG/2 ML SDV IVPUSH PRN (04:41)
[2021-08-16] MEDS ORDERED: Glucagon,Human Recombinant 1 MG Vial IM PRN ×2 (04:45→04:48)
[2021-08-16] MEDS ORDERED: 50% Dextrose in Water 50 ML Syringe IVPUSH PRN ×2 (04:45→04:48)
--- NOTE | 2021-08-16 04:50 | PCM.HP.2 ---
H&P History of Present Illness - General Date of Service: 08/16/21 Admit Problem/Dx: Admission Diagnosis/Problem Admission Diagnosis/Problem Chest pain - History of Present Illness Initial Comments - Free Text/Narative: Patient is a 61-year-old male with past medical history of CAD, 3 stents 1 of which has been removed, CVA, diabetes who comes in with complaints of chest pain that started yesterday about half an hour before his visit to the ER. Patient states that his pain was located in his lower chest, he got diaphoretic and also short of breath. In the ER EKG did not show any acute ischemic changes and ST and T waves, first 2 sets of troponins were negative. Patient continued to have chest pain received nitroglycerin with minimal relief eventually patient got IV Dilaudid which helped with the pain. Patient was admitted to the hospital for ACS rule out. CT of the abdomen and pelvis was done which did not show any acute cause of pain did show multiple cyst of the right kidney. CT angio was ne gative for PE. Patient states that he lives out of state, in [place] and he has seen his bean weigher few months back and was supposed to get a stress test which she has not obtained yet Chest Pain Score (Numeric/FACES): 8 - Related Data Allergies/Adverse Reactions: Allergies Allergy/AdvReac Type Severity Reaction Status Date / Time bee venom protein (honey bee) Allergy Anaphylactic Verified 08/15/21 19:38 Shock Home Medications: Home Meds Apixaban [Eliquis] 5 mg PO BID 04/20/19 [History] DULoxetine HCl [Duloxetine HCl] 1 tab PO DAILY 04/20/19 [History] metFORMIN [Glucophage] 1,000 mg PO BID 04/20/19 [History] atorvaSTATin [Lipitor] 80 mg PO DAILY 08/07/19 [History] Ranitidine [Zantac] 150 mg PO BID PRN 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 09/05/19 [History] Amiodarone [Cordarone] 200 mg PO DAILY 09/29/19 [History] Insulin Glargine,Hum.Rec.Anlog [Basaglar Kwikpen U-100] 16 unit SQ DAILY 07/10 [History] Pantoprazole [ProTONIX] 40 mg PO DAILY 09/29/19 [History] Hydrocodone/Acetaminophen [HYDROcodone-Acetaminophen 10-325 MG] 1 tab PO Q4H PRN 08/16/21 [History] Metoprolol Succinate 75 mg PO DAILY 08/16/21 [History] Metoprolol Succinate [Toprol Xl] 50 mg PO BEDTIME 08/16/21 [History] Pregabalin [Lyrica] 150 mg PO TID PRN 08/16/21 [History] QUEtiapine [SEROquel] 200 mg PO DAILY 08/16/21 [History] Ticagrelor [Brilinta] 90 mg PO BID 08/16/21 [History] Venlafaxine HCl [Venlafaxine ER] 75 mg PO DAILY 08/16/21 [History] lisinopriL [Lisinopril] 5 mg PO DAILY 08/16/21 [History] traZODone HCl [Trazodone HCl] 150 mg PO QPM 08/16/21 [History] Past Medical History HEENT History: Reports: None Other HEENT History: upper and lower dentures Cardiovascular History: Reports: Arrhythmia, Blood Clots/VTE/DVT, CAD, Hypertension Other Cardiovascular History: Afib w/ rvr Respiratory History: Reports: COPD Gastrointestinal History: Reports: Bowel Obstruction, GERD, Other (See Below) Other Gastrointestinal History: Intestinal rupture Genitourinary History: Reports: None Musculoskeletal History: Reports: Back Pain, Chronic, Fracture Neurological History: Reports: CVA Other Neuro History: 3 strokes in the last 1.5 years Psychiatric History: Reports: Anxiety, Depression Endocrine/Metabolic History: Reports: Diabetes, Type II Hematologic History: Reports: None Immunologic History: Reports: None Oncologic (Cancer) History: Reports: None Dermatologic History: Reports: None - Infectious Disease History Infectious Disease History: Reports: Chicken Pox - Past Surgical History Head Surgeries/Procedures: Reports: None HEENT Surgical History: Reports: None Cardiovascular Surgical History: Reports: Cardiac Ablation, Other (See Below) Other Cardiovascular Surgeries/Procedures: Cardioversion ablation Respiratory Surgical History: Reports: None GI Surgical History: Reports: Colonoscopy, Small Bowel Male Surgical History: Reports: None Endocrine Surgical History: Reports: None Neurological Surgical History: Reports: None Musculoskeletal Surgical History: Reports: Other (See Below) Other Musculoskeletal Surgeries/Procedures:: 6 back surgeries, 2 neck surgeries, titanium plate in neck Oncologic Surgical History: Reports: None Dermatological Surgical History: Reports: None Social & Family History - Family History Family Medical History: No Pertinent Family History Musculoskeletal: Reports: Gout Oncologic: Reports: Other (See Below) Other Oncologic Family History: patient states mother had cancer, unsure of what kind. - Tobacco Use Second Hand Smoke Exposure: No - Caffeine Use Caffeine Use: Reports: None Caffeine Use Comment: occasional/2 cups of coffee per week - Recreational Drug Use Recreational Drug Use: No - Living Situation & Occupation Living situation: Reports: with Family Occupation: Retired H&P Review of Systems - Review of Systems: Review Of Systems: See Below General: Denies: Fever, Chills, Malaise, Weakness Pulmonary: Denies: Shortness of Breath, Wheezing, Pleuritic Chest Pain, Cough Cardiovascular: Reports: Chest Pain (Resolved). Denies: Palpitations, Dyspnea on Exertion, Orthopnea Gastrointestinal: Denies: Abdominal Pain, Anorexia, Black Stool Genitourinary: Denies: Dysuria, Frequency, Burning Musculoskeletal: Denies: Neck Pain, Shoulder Pain, Arm Pain Skin: Denies: Cyanosis, Jaundice, Mottled Psychiatric: Denies: Confusion, Depression, Mood Lability Exam - Exam Exam: See Below - Vital Signs Vital Signs: Last Vital Signs Temp 36.3 C 08/16/21 03:37 Pulse 78 08/16/21 03:37 Resp 16 08/16/21 03:37 BP 134/94 H 08/16/21 03:37 Pulse Ox 97 08/16/21 03:37 Weight: 99.79 kg - Exam General: Alert, Oriented Neck: Supple Lungs: Clear to Auscultation, Normal Respiratory Effort Cardiovascular: Regular Rate, Regular Rhythm GI/Abdominal Exam: Normal Bowel Sounds, Soft, Non-Tender Back Exam: Normal Inspection, Full Range of Motion - Patient Data Lab Results Last 24 hrs: Laboratory Results - last 24 hr 08/15/21 08/15/21 08/15/21 Range/Units 20:27 20:27 20:27 WBC 11.81 H (4.0-11.0) K/uL RBC 5.05 (4.50-5.90) M/uL Hgb 16.0 (13.0-17.0) g/dL Hct 46.4 (38.0-50.0) % MCV 91.9 (80.0-98.0) fL MCH 31.7 (27.0-32.0) pg MCHC 34.5 (31.0-37.0) g/dL RDW Std Deviation 45.0 (28.0-62.0) fl RDW Coeff of Dennis 14 (11.0-15.0) % Plt Count 196 (150-400) K/uL MPV 11.30 (7.40-12.00) fL Neut % (Auto) 56.8 (48.0-80.0) % Lymph % (Auto) 33.3 (16.0-40.0) % [place] % (Auto) 7.7 (0.0-15.0) % Eos % (Auto) 1.9 (0.0-7.0) % Baso % (Auto) 0.3 (0.0-1.5) % Neut # (Auto) 6.7 H (1.4-5.7) K/uL Lymph # (Auto) 3.9 H (0.6-2.4) K/uL [place] # (Auto) 0.9 H (0.0-0.8) K/uL Eos # (Auto) 0.2 (0.0-0.7) K/uL Baso # (Auto) 0.0 (0.0-0.1) K/uL Nucleated RBC % 0.0 /100WBC Nucleated RBCs # 0 K/uL D-Dimer, Quantitative 0.51 H (0.0-0.50) mg/L FEU Sodium 137 (136-148) mmol/L Potassium 4.1 (3.5-5.1) mmol/L Chloride 101 (98-107) mmol/L Carbon Dioxide 25.2 (21.0-32.0) mmol/L BUN 11 (7.0-18.0) mg/dL Creatinine 0.8 (0.8-1.3) mg/dL Est Cr Clr Drug Dosing 133.40 mL/min Estimated GFR (MDRD) > 60.0 ml/min Glucose 175 H (74-106) mg/dL Calcium 8.7 (8.5-10.1) mg/dL Total Bilirubin 0.7 (0.2-1.0) mg/dL AST 27 (15-37) IU/L ALT 31 (14-63) IU/L Alkaline Phosphatase 59 (46-116) U/L Troponin I < 0.050 (0.000-0.056) ng/mL Total Protein 7.7 (6.4-8.2) g/dL Albumin 3.5 (3.4-5.0) g/dL Globulin 4.2 H (2.6-4.0) g/dL Albumin/Globulin Ratio 0.8 L (0.9-1.6) SARS-CoV-2 RNA (MARCUS) (NEGATIVE) 08/15/21 08/16/21 Range/Units 22:30 00:35 WBC (4.0-11.0) K/uL RBC (4.50-5.90) M/uL Hgb (13.0-17.0) g/dL Hct (38.0-50.0) % MCV (80.0-98.0) fL MCH (27.0-32.0) pg MCHC (31.0-37.0) g/dL RDW Std Deviation (28.0-62.0) fl RDW Coeff of Dennis (11.0-15.0) % Plt Count (150-400) K/uL MPV (7.40-12.00) fL Neut % (Auto) (48.0-80.0) % Lymph % (Auto) (16.0-40.0) % [place] % (Auto) (0.0-15.0) % Eos % (Auto) (0.0-7.0) % Baso % (Auto) (0.0-1.5) % Neut # (Auto) (1.4-5.7) K/uL Lymph # (Auto) (0.6-2.4) K/uL [place] # (Auto) (0.0-0.8) K/uL Eos # (Auto) (0.0-0.7) K/uL Baso # (Auto) (0.0-0.1) K/uL Nucleated RBC % /100WBC Nucleated RBCs # K/uL D-Dimer, Quantitative (0.0-0.50) mg/L FEU Sodium (136-148) mmol/L Potassium (3.5-5.1) mmol/L Chloride (98-107) mmol/L Carbon Dioxide (21.0-32.0) mmol/L BUN (7.0-18.0) mg/dL Creatinine (0.8-1.3) mg/dL Est Cr Clr Drug Dosing mL/min Estimated GFR (MDRD) ml/min Glucose (74-106) mg/dL Calcium (8.5-10.1) mg/dL Total Bilirubin (0.2-1.0) mg/dL AST (15-37) IU/L ALT (14-63) IU/L Alkaline Phosphatase (46-116) U/L Troponin I < 0.050 (0.000-0.056) ng/mL Total Protein (6.4-8.2) g/dL Albumin (3.4-5.0) g/dL Globulin (2.6-4.0) g/dL Albumin/Globulin Ratio (0.9-1.6) SARS-CoV-2 RNA (MARCUS) NEGATIVE (NEGATIVE) Result Diagrams: 08/15/21 20:27 08/15/21 20:27 Sepsis Event Note - Evaluation Sepsis Screening Result: No Definite Risk - Focused Exam Vital Signs: Vital Signs Temp Pulse Resp BP Pulse Ox 08/16/21 03:37 36.3 C 78 16 134/94 H 97 08/15/21 23:00 74 138/83 08/15/21 22:16 67 144/93 H 99 08/15/21 21:51 91 18 150/129 H 99 08/15/21 19:36 36.7 C 94 20 167/113 H 95 - Problem List (1) Chest pain SNOMED Code(s): 85731862 ICD Code: R07.9 - CHEST PAIN, UNSPECIFIED Status: Acute Current Visit: Yes Qualifiers: Chest pain type: unspecified Qualified Code(s): R07.9 - Chest pain, unspecified (2) Hypertension SNOMED Code(s): 57841908 ICD Code: I10 - ESSENTIAL (PRIMARY) HYPERTENSION Status: Acute Current Visit: Yes (3) Atypical chest pain SNOMED Code(s): 741317105 ICD Code: R07.89 - OTHER CHEST PAIN Status: Acute Priority: High Current Visit: No (4) History of atrial fibrillation SNOMED Code(s): 660553278 ICD Code: Z86.79 - PERSONAL HISTORY OF OTHER DISEASES OF THE CIRCULATORY SYSTEM Status: Acute Current Visit: No (5) Old cerebrovascular accident without late effect SNOMED Code(s): 539880450 ICD Code: Z86.73 - PRSNL HX OF TIA (TIA), AND CEREB INFRC W/O RESID DEFICITS Status: Acute Current Visit: No (6) Tobacco abuse SNOMED Code(s): 893541040 ICD Code: Z72.0 - TOBACCO USE Status: Acute Current Visit: No (7) Chronic anticoagulation SNOMED Code(s): 621954352 ICD Code: Z79.01 - BROADCAST JOURNALIST (CURRENT) USE OF ANTICOAGULANTS Status: Chronic Priority: High Current Visit: No (8) Diabetes mellitus type 2, controlled SNOMED Code(s): 21240998, 697321358 ICD Code: E11.9 - TYPE 2 DIABETES MELLITUS WITHOUT COMPLICATIONS Status: Chronic Priority: High Current Visit: No Qualifiers: Diabetes mellitus senior living insulin use: with senior living use Diabetes mellitus complication status: without complication Qualified Code(s): E11.9 - Type 2 diabetes mellitus without complications; Z79.4 - oysterman (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 Care 08/16/21 04:43 Active DIRECTED VTE/DVT Education [RC] PER UNIT ROUTINE Care 08/16/21 04:41 Active Vital Signs [RC] Q4H Care 08/16/21 04:41 Active Heart Healthy Diet [DIET] Diet 08/16/21 Breakfast Active TROPONIN I [CHEM] Routine Lab 08/16/21 04:41 Ordered Acetaminophen [TylenoL] Med 08/16/21 04:41 Active 650 mg PO Q4H PRN Albuterol/Ipratropium [DuoNeb 3.0-0.5 MG/3 ML] Med 08/16/21 04:41 Active 3 ml NEB Q4HRRT PRN Amiodarone [Cordarone] Med 08/16/21 09:00 Ordered 200 mg PO DAILY Apixaban [Eliquis] Med 08/16/21 09:00 Ordered 5 mg PO BID DULoxetine [Cymbalta] Med 08/16/21 09:00 Ordered 60 mg PO DAILY Dextrose 50% in Water Med 08/16/21 04:45 Ordered 50 ml IVPUSH ASDIRECTED PRN Dextrose 50% in Water Med 08/16/21 04:48 Ordered 50 ml IVPUSH ASDIRECTED PRN Glucagon,Human Recombinant [GlucaGen] Med 08/16/21 04:45 Ordered 1 mg IM ASDIRECTED PRN Glucagon,Human Recombinant [GlucaGen] Med 08/16/21 04:48 Ordered 1 mg IM ASDIRECTED PRN Insulin Aspart [NovoLOG] Med 08/16/21 07:30 Ordered See Protocol SUBCUT TIDAC Insulin Glarg,Human.Rec.Analog [LantUS Solostar] Med 08/16/21 09:00 Ordered 16 units SUBCUT DAILY Metoprolol Succinate [Toprol XL] Med 08/16/21 09:00 Ordered 100 mg PO DAILY Morphine Med 08/16/21 04:41 Active 2 mg IVPUSH Q4H PRN Ondansetron [Zofran] Med 08/16/21 04:41 Active 4 mg IVPUSH Q4H PRN Pantoprazole [ProTONIX] Med 08/16/21 09:00 Ordered 40 mg PO DAILY Pregabalin [Lyrica] Med 08/16/21 06:00 Ordered 200 mg PO TID QUEtiapine [SEROquel] Med 08/16/21 21:00 Ordered 50 mg PO BEDTIME Sodium Chloride 0.9% [Saline Flush] Med 08/15/21 19:42 Active 10 ml FLUSH ASDIRECTED PRN Sodium Chloride 0.9% [Saline Flush] Med 08/15/21 19:42 Active 2.5 ml FLUSH ASDIRECTED PRN atorvaSTATin [Lipitor] Med 08/16/21 09:00 Ordered 80 mg PO DAILY traZODone HCl Med 08/16/21 21:00 Ordered 100 mg PO BEDTIME Saline Lock Insert [OM.PC] Stat Oth 08/15/21 19:42 Ordered Sequential Compression Device [OM.PC] Per Unit Routine Oth 08/16/21 04:42 Ordered Medication Orders Acetaminophen (Acetaminophen 325 Mg Tab) 650 mg PO Q4H PRN PRN Reason: Pain (Mild 1-3)/fever Albuterol/Ipratropium (Albuterol/Ipratropium 3.0-0.5 Mg/3 Ml Neb Soln) 3 ml NEB Q4HRRT PRN PRN Reason: Shortness Of Breath/wheezing Amiodarone HCl (Amiodarone 200 Mg Tab) 200 mg PO DAILY [facility] Apixaban (Apixaban 5 Mg Tab) 5 mg PO BID [facility] Atorvastatin Calcium (Atorvastatin 40 Mg Tab) 80 mg PO DAILY [facility] Dextrose/Water (50% Dextrose In Water 50 Ml Syringe) 50 ml IVPUSH ASDIRECTED PRN PRN Reason: Hypoglycemia Dextrose/Water (50% Dextrose In Water 50 Ml Syringe) 50 ml IVPUSH ASDIRECTED PRN PRN Reason: Hypoglycemia Duloxetine HCl (Duloxetine 60 Mg Cap) 60 mg PO DAILY [facility] Glucagon (Glucagon,Human Recombinant 1 Mg Vial) 1 mg IM ASDIRECTED PRN PRN Reason: Hypoglycemia Glucagon (Glucagon,Human Recombinant 1 Mg Vial) 1 mg IM ASDIRECTED PRN PRN Reason: Hypoglycemia Insulin Aspart (Insulin Aspart 100 Units/Ml 3 Ml Pen) 0 unit SUBCUT TIDAC CHEKO; Protocol Insulin Glargine (Insulin Glargine,Human Rec. Analog 100 Units/Ml 3 Ml Pen) 16 units SUBCUT DAILY [facility] Metoprolol Succinate (Metoprolol Succinate 100 Mg Tab.Er) 100 mg PO DAILY [facility] Morphine Sulfate (Morphine 10 Mg/Ml Syringe) 2 mg IVPUSH Q4H PRN PRN Reason: Pain (severe 7-10) Stop: 08/17/21 04:43 Ondansetron HCl (Ondansetron 4 Mg/2 Ml Sdv) 4 mg IVPUSH Q4H PRN PRN Reason: Nausea/Vomiting Pantoprazole Sodium (Pantoprazole 40 Mg Tab.Cr) 40 mg PO DAILY [facility] Pregabalin (Pregabalin 200 Mg Cap) 200 mg PO TID [facility] Quetiapine Fumarate (Quetiapine 50 Mg Tab) 50 mg PO BEDTIME [facility] Sodium Chloride (Sodium Chloride 0.9% 10 Ml Syringe) 10 ml FLUSH ASDIRECTED PRN PRN Reason: Keep Vein Open Last Admin: 08/15/21 22:32 Dose: 10 ml Documented by: ROSALES Sodium Chloride (Sodium Chloride 0.9% 2.5 Ml Syringe) 2.5 ml FLUSH ASDIRECTED PRN PRN Reason: Keep Vein Open Last Admin: 08/15/21 22:32 Dose: 2.5 ml Documented by: ROSALES Trazodone HCl (Trazodone Hcl 100 Mg Tab) 100 mg PO BEDTIME CHEKO Assessment/Plan Comment:: 61-year-old male admitted for ACS rule out First 2 sets of troponin negative, check third set Pain has resolved during my encounter We will check hemoglobin A1c, lipid profile, TSH Patient is requiring IV morphine intermittently, patient states that he takes Terry at home for chest pain There is also history of possible gastritis/gastric ulcer which could be another reason for his lower chest pain, patient is tender on epigastric palpation IV PPI daily IV Zofran for nausea vomiting Resume home meds as appropriate Possible discharge tomorrow Patient states that he lives out of state, in [place] and he has seen his bean weigher few months back and was supposed to get a stress test which she has not obtained yet
[2021-08-16] MEDS: Pregabalin 200 MG Cap PO SCH ×3 (05:25→22:21)
[2021-08-16] MEDS: Insulin Aspart 100 Units/ML 3 ML Pen SUBCUT SCH ×3 (07:27→17:39)
[2021-08-16] MEDS: Morphine 2 MG/ML SYRINGE IVPUSH PRN ×4 (08:10→21:20)
[2021-08-16] MEDS ORDERED: Metoprolol Succinate 100 MG Tab.ER PO SCH (09:00)
[2021-08-16] MEDS: DULoxetine 60 MG Cap PO SCH (09:06)
[2021-08-16] MEDS: atorvaSTATin 40 MG Tab PO SCH (09:07)
[2021-08-16] MEDS: Amiodarone 200 MG Tab PO SCH (09:07)
[2021-08-16] MEDS: Apixaban 5 MG Tab PO SCH ×2 (09:08→21:23)
[2021-08-16] MEDS: Pantoprazole 40 MG Tab.CR PO SCH (09:08)
[2021-08-16] MEDS: Insulin Glargine,Human Rec. Analog 100 Units/ML 3 ML Pen SUBCUT SCH (09:22)
[2021-08-16] MEDS ORDERED: Aluminum Hydroxide/Magnesium Hydroxide/Simethicone XS Susp 30 ML Cup PO SCH (12:00)
[2021-08-16 12:47] LABS: HEMOGLOBIN A1C 8.9 %
[2021-08-16] MEDS: Aluminum Hydroxide/Magnesium Hydroxide/Simethicone XS Susp 30 ML Cup PO SCH ×2 (14:30→20:30)
[2021-08-16] MEDS ORDERED: Pregabalin 75 MG Cap PO PRN ×2 (18:17→20:39)
[2021-08-16] MEDS ORDERED: Acetaminophen/HYDROcodone 325-10 MG Tab PO PRN (18:17)
[2021-08-16] MEDS ORDERED: QUEtiapine 100 MG Tab PO SCH (21:00)
[2021-08-16] MEDS ORDERED: traZODone 50 MG Tab PO SCH (21:00)
[2021-08-17] MEDS ORDERED: Sodium Chloride 0.9% 250 ML IV ONE (00:48)
[2021-08-17] MEDS: Aluminum Hydroxide/Magnesium Hydroxide/Simethicone XS Susp 30 ML Cup PO SCH ×3 (01:55→13:12)
[2021-08-17] MEDS: Pregabalin 200 MG Cap PO SCH (06:02)
[2021-08-17 07:53] LABS: BLOOD UREA NITROGEN,BUN 18 mg/dL (7.0-18.0); CARBON DIOXIDE,CO2 28.2 mmol/L (21.0-32.0); CHLORIDE,CL 102 mmol/L (98-107); GLUCOSE RANDOM 230 mg/dL (74-106); POTASSIUM,K 4.3 mmol/L (3.5-5.1); SODIUM,NA 138 mmol/L (136-148)
[2021-08-17] MEDS ORDERED: QUEtiapine 100 MG Tab PO SCH ×2 (09:00)
[2021-08-17] MEDS ORDERED: Metoprolol Succinate 50 MG Tab.ER PO SCH ×3 (09:00)
[2021-08-17] MEDS ORDERED: Lisinopril 5 MG Tab PO SCH (09:00)
[2021-08-17] MEDS ORDERED: Venlafaxine 75 MG Cap.ER PO SCH (09:00)
[2021-08-17] MEDS: DULoxetine 60 MG Cap PO SCH (09:21)
[2021-08-17] MEDS: atorvaSTATin 40 MG Tab PO SCH (09:26)
[2021-08-17] MEDS: Apixaban 5 MG Tab PO SCH (09:26)
[2021-08-17] MEDS: Amiodarone 200 MG Tab PO SCH (09:26)
[2021-08-17] MEDS: Pantoprazole 40 MG Tab.CR PO SCH (09:26)
[2021-08-17] MEDS: Insulin Glargine,Human Rec. Analog 100 Units/ML 3 ML Pen SUBCUT SCH (09:34)
--- NOTE | 2021-08-17 11:45 | PCM.DCSUM1 ---
Discharge Summary - Hospital Course Diagnosis: Stroke: No - Discharge Data Discharge Disposition: Home, Self-Care 01 Condition: Stable - Referral to Home Health Primary Care Physician: PCP Not In Area - Discharge Diagnosis/Problem(s) (1) Chest pain SNOMED Code(s): 70143967 ICD Code: R07.9 - CHEST PAIN, UNSPECIFIED Status: Acute Current Visit: Yes Qualifiers: Chest pain type: unspecified Qualified Code(s): R07.9 - Chest pain, unspecified (2) Hypertension SNOMED Code(s): 65432042 ICD Code: I10 - ESSENTIAL (PRIMARY) HYPERTENSION Status: Acute Current Visit: Yes (3) Atypical chest pain SNOMED Code(s): 294872804 ICD Code: R07.89 - OTHER CHEST PAIN Status: Acute Priority: High Current Visit: No (4) History of atrial fibrillation SNOMED Code(s): 184438320 ICD Code: Z86.79 - PERSONAL HISTORY OF OTHER DISEASES OF THE CIRCULATORY SYSTEM Status: Acute Current Visit: No (5) Old cerebrovascular accident without late effect SNOMED Code(s): 414934768 ICD Code: Z86.73 - PRSNL HX OF TIA (TIA), AND CEREB INFRC W/O RESID DEFICITS Status: Acute Current Visit: No (6) Tobacco abuse SNOMED Code(s): 613371714 ICD Code: Z72.0 - TOBACCO USE Status: Acute Current Visit: No (7) Chronic anticoagulation SNOMED Code(s): 642352445 ICD Code: Z79.01 - DETENTION (CURRENT) USE OF ANTICOAGULANTS Status: Chronic Priority: High Current Visit: No (8) Diabetes mellitus type 2, controlled SNOMED Code(s): 45713769, 909457281 ICD Code: E11.9 - TYPE 2 DIABETES MELLITUS WITHOUT COMPLICATIONS Status: Chronic Priority: High Current Visit: No Qualifiers: 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: with correction use Diabetes mellitus complication status: without complication Qualified Code(s): E11.9 - Type 2 diabetes mellitus without complications; Z79.4 - [facility] (current) use of insulin - Discharge Plan *PRESCRIPTION DRUG MONITORING PROGRAM REVIEWED*: No *COPY OF PRESCRIPTION DRUG MONITORING REPORT IN PATIENT ALEAH: No Prescriptions/Med Rec: Alum Trosper/Mag Trosper/Simeth XS [Mag-Al Plus XS] 30 ml PO Q6H #60 cup Home Medications: Home Meds Apixaban [Eliquis] 5 mg PO BID 04/20/19 [History] DULoxetine HCl [Duloxetine HCl] 1 tab PO DAILY 04/20/19 [History] metFORMIN [Glucophage] 1,000 mg PO BID 04/20/19 [History] atorvaSTATin [Lipitor] 80 mg PO DAILY 08/07/19 [History] Ranitidine [Zantac] 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 [History] Amiodarone [Cordarone] 200 mg PO DAILY 09/29/19 [History] Insulin Glargine,Hum.Rec.Anlog [Basaglar Kwikpen U-100] 16 unit SQ DAILY 09/29 [History] Pantoprazole [ProTONIX] 40 mg PO DAILY 09/29/19 [History] Hydrocodone/Acetaminophen [HYDROcodone-Acetaminophen 10-325 MG] 1 tab PO Q4H PRN 08/16/21 [History] Metoprolol Succinate 75 mg PO BEDTIME 08/16/21 [History] Metoprolol Succinate [Toprol Xl] 50 mg PO QAM 08/16/21 [History] QUEtiapine [SEROquel] 200 mg PO BEDTIME 08/16/21 [History] Ticagrelor [Brilinta] 90 mg PO BID 08/16/21 [History] Venlafaxine HCl [Venlafaxine ER] 75 mg PO DAILY 08/16/21 [History] lisinopriL [Lisinopril] 5 mg PO DAILY 08/16/21 [History] traZODone HCl [Trazodone HCl] 50 mg PO BEDTIME 08/16/21 [History] Alum Trosper/Mag Trosper/Simeth XS [Mag-Al Plus XS] 30 ml PO Q6H #60 cup 08/17/21 [Rx] Pregabalin 200 mg PO TID 08/17/21 [History] Patient Handouts: How to Take Your Blood Pressure, [id number], Chest Wall Pain, [id number], Nonspecific Chest Pain, Adult, Alyw-zm-Bpty, Hypertension, Adult, [id number]-Wciu, Managing Your Hypertension - Patient Data Vitals - Most Recent: Last Vital Signs Temp 35.8 C L 08/17/21 04:15 Pulse 63 08/17/21 09:21 Resp 22 H 10/27/21 04:15 BP 143/71 H 08/17/21 09:26 Pulse Ox 95 08/17/21 04:41 Weight - Most Recent: 101.106 kg I&O - Last 24 hours: Intake & Output 08/16/21 08/17/21 08/17/21 22:59 06:59 14:59 Intake Total 650 Output Total 800 Balance -150 Lab Results - Last 24 hrs: Laboratory Results - last 24 hr 08/15/21 08/16/21 08/16/21 Range/Units 20:27 06:10 11:55 WBC (4.0-11.0) K/uL RBC (4.50-5.90) M/uL Hgb (13.0-17.0) g/dL Hct (38.0-50.0) % MCV (80.0-98.0) fL MCH (27.0-32.0) pg MCHC (31.0-37.0) g/dL RDW Std Deviation (28.0-62.0) fl RDW Coeff of Dennis (11.0-15.0) % Plt Count (150-400) K/uL MPV (7.40-12.00) fL Neut % (Auto) (48.0-80.0) % Lymph % (Auto) (16.0-40.0) % [place] % (Auto) (0.0-15.0) % Eos % (Auto) (0.0-7.0) % Baso % (Auto) (0.0-1.5) % Neut # (Auto) (1.4-5.7) K/uL Lymph # (Auto) (0.6-2.4) K/uL [place] # (Auto) (0.0-0.8) K/uL Eos # (Auto) (0.0-0.7) K/uL Baso # (Auto) (0.0-0.1) K/uL Nucleated RBC % /100WBC Nucleated RBCs # K/uL Sodium (136-148) mmol/L Potassium (3.5-5.1) mmol/L Chloride (98-107) mmol/L Carbon Dioxide (21.0-32.0) mmol/L BUN (7.0-18.0) mg/dL Creatinine (0.8-1.3) mg/dL Est Cr Clr Drug Dosing mL/min Estimated GFR (MDRD) ml/min Glucose (74-106) mg/dL POC Glucose 186 H (70-99) mg/dL Hemoglobin A1c 8.9 H (4.5 - 6.2) % Calcium (8.5-10.1) mg/dL Triglycerides 243 H (0-200) mg/dL Cholesterol 190 (50-200) mg/dL LDL Cholesterol, Calc 113 (60-180) mg/dL VLDL Cholesterol 48 (5-55) mg/dL HDL Cholesterol 28 L (40-60) mg/dL Cholesterol/HDL Ratio 6.8 H (3.3-6.0) Free T4 1.10 (0.76-1.46) ng/dL TSH, Ultra Sensitive 3.93 H (0.36-3.74) uIU/mL 08/16/21 08/16/21 08/17/21 Range/Units 16:54 17:38 06:13 WBC (4.0-11.0) K/uL RBC (4.50-5.90) M/uL Hgb (13.0-17.0) g/dL Hct (38.0-50.0) % MCV (80.0-98.0) fL MCH (27.0-32.0) pg MCHC (31.0-37.0) g/dL RDW Std Deviation (28.0-62.0) fl RDW Coeff of Dennis (11.0-15.0) % Plt Count (150-400) K/uL MPV (7.40-12.00) fL Neut % (Auto) (48.0-80.0) % Lymph % (Auto) (16.0-40.0) % [place] % (Auto) (0.0-15.0) % Eos % (Auto) (0.0-7.0) % Baso % (Auto) (0.0-1.5) % Neut # (Auto) (1.4-5.7) K/uL Lymph # (Auto) (0.6-2.4) K/uL [place] # (Auto) (0.0-0.8) K/uL Eos # (Auto) (0.0-0.7) K/uL Baso # (Auto) (0.0-0.1) K/uL Nucleated RBC % /100WBC Nucleated RBCs # K/uL Sodium (136-148) mmol/L Potassium (3.5-5.1) mmol/L Chloride (98-107) mmol/L Carbon Dioxide (21.0-32.0) mmol/L BUN (7.0-18.0) mg/dL Creatinine (0.8-1.3) mg/dL Est Cr Clr Drug Dosing mL/min Estimated GFR (MDRD) ml/min Glucose (74-106) mg/dL POC Glucose 187 H 161 H 188 H (70-99) mg/dL Hemoglobin A1c (4.5 - 6.2) % Calcium (8.5-10.1) mg/dL Triglycerides (0-200) mg/dL Cholesterol (50-200) mg/dL LDL Cholesterol, Calc (60-180) mg/dL VLDL Cholesterol (5-55) mg/dL HDL Cholesterol (40-60) mg/dL Cholesterol/HDL Ratio (3.3-6.0) Free T4 (0.76-1.46) ng/dL TSH, Ultra Sensitive (0.36-3.74) uIU/mL 08/17/21 08/17/21 08/17/21 Range/Units 06:36 06:36 09:33 WBC 8.76 (4.0-11.0) K/uL RBC 4.61 (4.50-5.90) M/uL Hgb 14.3 (13.0-17.0) g/dL Hct 43.0 (38.0-50.0) % MCV 93.3 (80.0-98.0) fL MCH 31.0 (27.0-32.0) pg MCHC 33.3 (31.0-37.0) g/dL RDW Std Deviation 46.2 (28.0-62.0) fl RDW Coeff of Dennis 14 (11.0-15.0) % Plt Count 179 (150-400) K/uL MPV 11.50 (7.40-12.00) fL Neut % (Auto) 46.0 L (48.0-80.0) % Lymph % (Auto) 41.8 H (16.0-40.0) % [place] % (Auto) 9.7 (0.0-15.0) % Eos % (Auto) 2.2 (0.0-7.0) % Baso % (Auto) 0.3 (0.0-1.5) % Neut # (Auto) 4.0 (1.4-5.7) K/uL Lymph # (Auto) 3.7 H (0.6-2.4) K/uL [place] # (Auto) 0.9 H (0.0-0.8) K/uL Eos # (Auto) 0.2 (0.0-0.7) K/uL Baso # (Auto) 0.0 (0.0-0.1) K/uL Nucleated RBC % 0.0 /100WBC Nucleated RBCs # 0 K/uL Sodium 138 (136-148) mmol/L Potassium 4.3 (3.5-5.1) mmol/L Chloride 102 (98-107) mmol/L Carbon Dioxide 28.2 (21.0-32.0) mmol/L BUN 18 (7.0-18.0) mg/dL Creatinine 0.8 (0.8-1.3) mg/dL Est Cr Clr Drug Dosing 106.81 mL/min Estimated GFR (MDRD) > 60.0 ml/min Glucose 230 H (74-106) mg/dL POC Glucose 274 H (70-99) mg/dL Hemoglobin A1c (4.5 - 6.2) % Calcium 8.4 L (8.5-10.1) mg/dL Triglycerides (0-200) mg/dL Cholesterol (50-200) mg/dL LDL Cholesterol, Calc (60-180) mg/dL VLDL Cholesterol (5-55) mg/dL HDL Cholesterol (40-60) mg/dL Cholesterol/HDL Ratio (3.3-6.0) Free T4 (0.76-1.46) ng/dL TSH, Ultra Sensitive (0.36-3.74) uIU/mL 08/17/21 Range/Units 11:32 WBC (4.0-11.0) K/uL RBC (4.50-5.90) M/uL Hgb (13.0-17.0) g/dL Hct (38.0-50.0) % MCV (80.0-98.0) fL MCH (27.0-32.0) pg MCHC (31.0-37.0) g/dL RDW Std Deviation (28.0-62.0) fl RDW Coeff of Dennis (11.0-15.0) % Plt Count (150-400) K/uL MPV (7.40-12.00) fL Neut % (Auto) (48.0-80.0) % Lymph % (Auto) (16.0-40.0) % [place] % (Auto) (0.0-15.0) % Eos % (Auto) (0.0-7.0) % Baso % (Auto) (0.0-1.5) % Neut # (Auto) (1.4-5.7) K/uL Lymph # (Auto) (0.6-2.4) K/uL [place] # (Auto) (0.0-0.8) K/uL Eos # (Auto) (0.0-0.7) K/uL Baso # (Auto) (0.0-0.1) K/uL Nucleated RBC % /100WBC Nucleated RBCs # K/uL Sodium (136-148) mmol/L Potassium (3.5-5.1) mmol/L Chloride (98-107) mmol/L Carbon Dioxide (21.0-32.0) mmol/L BUN (7.0-18.0) mg/dL Creatinine (0.8-1.3) mg/dL Est Cr Clr Drug Dosing mL/min Estimated GFR (MDRD) ml/min Glucose (74-106) mg/dL POC Glucose 195 H (70-99) mg/dL Hemoglobin A1c (4.5 - 6.2) % Calcium (8.5-10.1) mg/dL Triglycerides (0-200) mg/dL Cholesterol (50-200) mg/dL LDL Cholesterol, Calc (60-180) mg/dL VLDL Cholesterol (5-55) mg/dL HDL Cholesterol (40-60) mg/dL Cholesterol/HDL Ratio (3.3-6.0) Free T4 (0.76-1.46) ng/dL TSH, Ultra Sensitive (0.36-3.74) uIU/mL Med Orders - Current: Current Medications Acetaminophen (Acetaminophen 325 Mg Tab) 650 mg PO Q4H PRN PRN Reason: Pain (Mild 1-3)/fever Hydrocodone Bitart/Acetaminophen (Acetaminophen/Hydrocodone 325-10 Mg Tab) 1 tab PO Q4H PRN PRN Reason: Pain Last Admin: 08/17/21 10:18 Dose: 1 tab Documented by: Albuterol/Ipratropium (Albuterol/Ipratropium 3.0-0.5 Mg/3 Ml Neb Soln) 3 ml NEB Q4HRRT PRN PRN Reason: Shortness Of Breath/wheezing Amiodarone HCl (Amiodarone 200 Mg Tab) 200 mg PO DAILY [facility] Last Admin: 08/17/21 09:26 Dose: 200 mg Documented by: Apixaban (Apixaban 5 Mg Tab) 5 mg PO BID [facility] Last Admin: 08/17/21 09:26 Dose: 5 mg Documented by: Atorvastatin Calcium (Atorvastatin 40 Mg Tab) 80 mg PO DAILY [facility] Last Admin: 08/17/21 09:26 Dose: 80 mg Documented by: Dextrose/Water (50% Dextrose In Water 50 Ml Syringe) 50 ml IVPUSH ASDIRECTED PRN PRN Reason: Hypoglycemia Duloxetine HCl (Duloxetine 60 Mg Cap) 60 mg PO DAILY [facility] Last Admin: 08/17/21 09:21 Dose: 60 mg Documented by: Glucagon (Glucagon,Human Recombinant 1 Mg Vial) 1 mg IM ASDIRECTED PRN PRN Reason: Hypoglycemia Insulin Aspart (Insulin Aspart 100 Units/Ml 3 Ml Pen) 0 unit SUBCUT TIDAC [facility]; Protocol Last Admin: 08/16/21 17:39 Dose: 1 unit Documented by: Insulin Glargine (Insulin Glargine,Human Rec. Analog 100 Units/Ml 3 Ml Pen) 16 units SUBCUT DAILY [facility] Last Admin: 08/17/21 09:34 Dose: 16 units Documented by: Lisinopril (Lisinopril 5 Mg Tab) 5 mg PO DAILY [facility] Last Admin: 08/17/21 09:26 Dose: 5 mg Documented by: Metoprolol Succinate (Metoprolol Succinate 50 Mg Tab.Er) 50 mg PO DAILY [facility] Last Admin: 08/17/21 09:21 Dose: 50 mg Documented by: Metoprolol Succinate (Metoprolol Succinate 25 Mg Tab.Er) 75 mg PO BEDTIME [facility] Ondansetron HCl (Ondansetron 4 Mg/2 Ml Sdv) 4 mg IVPUSH Q4H PRN PRN Reason: Nausea/Vomiting Last Admin: 08/16/21 17:33 Dose: 4 mg Documented by: Pantoprazole Sodium (Pantoprazole 40 Mg Tab.Cr) 40 mg PO DAILY [facility] Last Admin: 08/17/21 09:26 Dose: 40 mg Documented by: Ticagrelor 90 Mg (Tablet) 1 each PO BID [facility] Pregabalin (Pregabalin 200 Mg Cap) 200 mg PO TID [facility] Last Admin: 08/17/21 06:02 Dose: Not Given Documented by: Quetiapine Fumarate (Quetiapine 100 Mg Tab) 200 mg PO BEDTIME [facility] Last Admin: 08/16/21 21:23 Dose: 200 mg Documented by: Sodium Chloride (Sodium Chloride 0.9% 10 Ml Syringe) 10 ml FLUSH ASDIRECTED PRN PRN Reason: Keep Vein Open Last Admin: 08/15/21 22:32 Dose: 10 ml Documented by: Sodium Chloride (Sodium Chloride 0.9% 2.5 Ml Syringe) 2.5 ml FLUSH ASDIRECTED PRN PRN Reason: Keep Vein Open Last Admin: 08/15/21 22:32 Dose: 2.5 ml Documented by: Trazodone HCl (Trazodone 50 Mg Tab) 50 mg PO BEDTIME [facility] Last Admin: 08/16/21 21:23 Dose: 50 mg Documented by: Venlafaxine HCl (Venlafaxine 75 Mg Cap.Er) 75 mg PO DAILY [facility] Last Admin: 08/17/21 09:26 Dose: 75 mg Documented by: Discontinued Medications Dextrose/Water (50% Dextrose In Water 50 Ml Syringe) 50 ml IVPUSH ASDIRECTED PRN PRN Reason: Hypoglycemia Glucagon (Glucagon,Human Recombinant 1 Mg Vial) 1 mg IM ASDIRECTED PRN PRN Reason: Hypoglycemia Hydromorphone HCl (Hydromorphone 2 Mg/Ml Syringe) 1 mg IVPUSH ONETIME ONE Stop: 08/15/21 19:49 Last Admin: 08/15/21 20:32 Dose: 1 mg Documented by: Hydromorphone HCl (Hydromorphone 1 Mg/Ml Syringe) 1 mg IVPUSH ONETIME ONE Stop: 08/15/21 22:24 Last Admin: 08/15/21 22:26 Dose: 1 mg Documented by: Hydromorphone HCl (Hydromorphone 2 Mg/Ml Syringe) 1 mg IVPUSH ONETIME ONE Stop: 08/16/21 02:26 Last Admin: 08/16/21 02:31 Dose: 1 mg Documented by: Pantoprazole Sodium 40 mg/ (Sodium Chloride) 20 mls @ 420 mls/hr IVPUSH ONETIME ONE Stop: 08/15/21 19:51 Last Admin: 08/15/21 20:31 Dose: 420 mls/hr Documented by: Sodium Chloride (Normal Saline) 250 mls @ 999 mls/hr IV .Bolus ONE Stop: 08/17/21 01:03 Last Admin: 08/17/21 00:48 Dose: 999 mls/hr Documented by: Iopamidol (Iopamidol 755 Mg/Ml 100 Ml Bottle) 100 ml IVPUSH ONETIME ONE Stop: 08/16/21 00:32 Last Admin: 08/16/21 00:36 Dose: 100 ml Documented by: Labetalol HCl (Labetalol 100 Mg/20 Ml Mdv) 20 mg IVPUSH ONETIME ONE; Protocol Stop: 08/15/21 20:52 Last Admin: 08/15/21 21:44 Dose: 20 mg Documented by: Metoprolol Succinate (Metoprolol Succinate 100 Mg Tab.Er) 100 mg PO DAILY [facility] Last Admin: 08/16/21 09:07 Dose: 100 mg Documented by: Metoprolol Succinate (Metoprolol Succinate 50 Mg Tab.Er) 75 mg PO DAILY [facility] Morphine Sulfate (Morphine 10 Mg/Ml Syringe) 2 mg IVPUSH Q4H PRN PRN Reason: Pain (severe 7-10) Stop: 08/17/21 04:43 Morphine Sulfate (Morphine 2 Mg/Ml Syringe) 2 mg IVPUSH Q4H PRN PRN Reason: Pain (severe 7-10) Stop: 08/17/21 04:43 Last Admin: 08/16/21 21:20 Dose: 2 mg Documented by: Nitroglycerin (Nitroglycerin 2% Oint 1 Gm Ud Packet) 1 gm TOP ONETIME ONE Stop: 08/15/21 19:49 Last Admin: 08/15/21 20:33 Dose: 1 gm Documented by: Pregabalin (Pregabalin 75 Mg Cap) 150 mg PO TID PRN PRN Reason: Pain Quetiapine Fumarate (Quetiapine 50 Mg Tab) 50 mg PO BEDTIME [facility] Quetiapine Fumarate (Quetiapine 100 Mg Tab) 200 mg PO DAILY [facility] Quetiapine Fumarate (Quetiapine 100 Mg Tab) 200 mg PO DAILY [facility] Trazodone HCl (Trazodone Hcl 100 Mg Tab) 100 mg PO BEDTIME [facility] Trazodone HCl (Trazodone Hcl 100 Mg Tab) 150 mg PO QPM [facility] Trazodone HCl (Trazodone Hcl 100 Mg Tab) 150 mg PO QPM [facility]
[2021-08-17] MEDS: Insulin Aspart 100 Units/ML 3 ML Pen SUBCUT SCH ×2 (12:35→13:05)
[2021-08-17] MEDS ORDERED: Metoprolol Succinate 25 MG Tab.ER PO SCH (21:00)
== END 2021-08-17 14:20 | disposition home or self-care (01) ==
LOC: MW.ED 19:22 → MW.MS 08-16 03:37
PROVIDERS: ADMIT Student in an Organized Health Care Education/Training Program; ATTEND Student in an Organized Health Care Education/Training Program
DX: R07.9 Chest pain, unspecified (principal); I25.10 Atherosclerotic heart disease of native coronary artery without angina pectoris; I10 Essential (primary) hypertension; J44.9 Chronic obstructive pulmonary disease, unspecified; I48.91 Unspecified atrial fibrillation; E11.9 Type 2 diabetes mellitus without complications; Z79.84 Long term (current) use of oral hypoglycemic drugs; Z79.4 Long term (current) use of insulin; K21.9 Gastro-esophageal reflux disease without esophagitis; Z20.822 Contact with and (suspected) exposure to COVID-19; Z86.73 Personal history of transient ischemic attack (TIA), and cerebral infarction without residual deficits; Z91.030 Bee allergy status; Z79.899 Other long term (current) drug therapy; Z98.890 Other specified postprocedural states; Z79.01 Long term (current) use of anticoagulants
CPT/HCPCS: 36415; 71045; 71275; 74177; 80048; 80053; 80061; 82947; 83036; 84439; 84443; 84484; 85025; 85379; 93005; 96374; 96375; 96376; 99285; A9270; C9113; G0378; J1170; J1815; J2270; J2405; J3490; J7030; Q9967; U0002

== ENCOUNTER 2021-08-26 09:44 | Observation (INO) | payer MEDICARE, MEDICAID ==
--- NOTE | 2021-08-26 09:50 | EDM.PDOC ---
ED HPI GENERAL MEDICAL PROBLEM - General Stated Complaint: CHEST PAIN Time Seen by Provider: 08/26/21 09:47 - History of Present Illness INITIAL COMMENTS - FREE TEXT/NARRATIVE: History of present illness: [] The patient was supposed to have a stress test today. He had a treadmill test last night but came for his injection of radionucleotide. When he woke up he was diaphoretic. He did not have much in the way of other symptoms. During the stress test he got diaphoretic again. Now he has developed some chest pain. He was admitted overnight on 15 August for chest pain and rule out [place]. The patient lives in [place] but he works here and he has been here multiple times. He has had multiple strokes in the past and says it makes it hard for him to remember things. The patient is diaphoretic and complains of mild chest pain. Patient is mildly short of breath. Patient is somewhat confused. The patient presents with a rapidly irregular heartbeat. Initial EKG showed atrial fibrillation with a rapid ventricular response. He also is in and out of sinus rhythm on the monitor. Second EKG captured sinus rhythm for the first 6 leads and atrial fibrillation with RVR for the remaining leads. The RVR had slowed down somewhat. Review of systems: As per history of present illness and below otherwise all systems reviewed and negative. Past medical history: As per history of present illness and as reviewed below otherwise noncontrib utory. Surgical history: As per history of present illness and as reviewed below otherwise noncontributory. Social history: No reported history of drug or alcohol abuse. Family history: As per history of present illness and as reviewed below otherwise noncontributory. Physical exam: Constitutional - well developed, well-nourished and in no acute distress HEENT - normocephalic, no evidence of trauma - external nose and mouth normal - no mass in neck and no JVD - mucosae moist EYES - full EOM, PERRL, no icterus - no evidence of inflammation, injection, or drainage Respiratory - no respiratory distress, equal bilateral expansion, lungs clear to auscultation and no abnormal lung sounds Cardiovascular - Regular Rhythm with S1 and S2 appreciated and no murmur, gallop or rub. GI - abdomen soft without distension or organomegaly - normal bowel sounds - no guard or rebound Musculoskeletal no gross deformity of long bones or joints - no tenderness, swelling or edema Neurologic - Alert and oriented times four - CN II-XII grossly intact - motor sensory and coordination symmetrically normal Psychiatric - appropriate mood and affect with normal thought content Hematologic - No petechiae or purpura - mucosa appropriate color and sclera not pale - normal nail bed color and refill Integument -diaphoretic-otherwise no rash or evidence of trauma - normal turgor Diagnostics: [] Therapeutics: [] Impression: [] Plan: [] Definitive disposition and diagnosis as appropriate pending reevaluation and review of above. chest Pain Score (Numeric/FACES): 7 - Related Data Allergies Allergy/AdvReac Type Severity Reaction Status Date / Time bee venom protein (honey bee) Allergy Anaphylactic Verified 08/26/21 09:59 Shock Home Meds: Home Meds Apixaban [Eliquis] 5 mg PO BID 04/20/19 [History] DULoxetine HCl [Duloxetine HCl] 1 tab PO DAILY 04/20/19 [History] atorvaSTATin [Lipitor] 40 mg PO BEDTIME 08/07/19 [History] Ranitidine [Zantac] 150 mg PO BID PRN MDD Acid Inspector Filters 09/05/19 [History] Amiodarone [Cordarone] 200 mg PO DAILY 09/29/19 [History] Insulin Glargine,Hum.Rec.Anlog [Basaglar Kwikpen U-100] 16 unit SQ DAILY 09/29/19 [History] Hydrocodone/Acetaminophen [HYDROcodone-Acetaminophen 10-325 MG] 1 tab PO Q4H PRN 08/16/21 [History] Metoprolol Succinate 75 mg PO BEDTIME 08/16/21 [History] QUEtiapine [SEROquel] 200 mg PO BEDTIME 08/16/21 [History] Ticagrelor [Brilinta] 90 mg PO BID 08/16/21 [History] Venlafaxine HCl [Venlafaxine ER] 75 mg PO DAILY 08/16/21 [History] lisinopriL [Lisinopril] 5 mg PO DAILY 08/16/21 [History] Alum Falconer/Mag Falconer/Simeth XS [Mag-Al Plus XS] 30 ml PO Q6H #60 cup 08/17/21 [Rx] Omeprazole 20 mg PO ACBREAKFAST #30 cap.sr 08/17/21 [Rx] Pregabalin [Lyrica] 200 mg PO TID 08/26/21 [History] metFORMIN HCl [Metformin HCl ER] 500 mg PO DAILY 08/26/21 [History] traZODone 50 mg PO BEDTIME 08/26/21 [History] Past Medical History HEENT History: Reports: None Other HEENT History: upper and lower dentures Cardiovascular History: Reports: Arrhythmia, Blood Clots/VTE/DVT, CAD, Hypertension Other Cardiovascular History: Afib w/ rvr Respiratory History: Reports: COPD Gastrointestinal History: Reports: Bowel Obstruction, GERD, Other (See Below) Other Gastrointestinal History: Intestinal rupture Genitourinary History: Reports: None Musculoskeletal History: Reports: Back Pain, Chronic, Fracture Neurological History: Reports: CVA Other Neuro History: 3 strokes in the last 1.5 years Psychiatric History: Reports: Anxiety, Depression Endocrine/Metabolic History: Reports: Diabetes, Type II Hematologic History: Reports: None Immunologic History: Reports: None Oncologic (Cancer) History: Reports: None Dermatologic History: Reports: None - Infectious Disease History Infectious Disease History: Reports: Chicken Pox - Past Surgical History Head Surgeries/Procedures: Reports: None HEENT Surgical History: Reports: None Cardiovascular Surgical History: Reports: Cardiac Ablation, Other (See Below) Other Cardiovascular Surgeries/Procedures: Cardioversion ablation Respiratory Surgical History: Reports: None GI Surgical History: Reports: Colonoscopy, Small Bowel Male Surgical History: Reports: None Endocrine Surgical History: Reports: None Neurological Surgical History: Reports: None Musculoskeletal Surgical History: Reports: Other (See Below) Other Musculoskeletal Surgeries/Procedures:: 6 back surgeries, 2 neck surgeries, titanium plate in neck Oncologic Surgical History: Reports: None Dermatological Surgical History: Reports: None Social & Family History - Family History Family Medical History: No Pertinent Family History Musculoskeletal: Reports: Gout Oncologic: Reports: Other (See Below) Other Oncologic Family History: patient states mother had cancer, unsure of what kind. - Caffeine Use Caffeine Use: Reports: Soda Other Caffeine Use: 1-2 a day Caffeine Use Comment: occasional/2 cups of coffee per week - Living Situation & Occupation Living situation: Reports: with Family Occupation: Retired ED ROS GENERAL - Review of Systems Review Of Systems: Comprehensive ROS is negative, except as noted in HPI. ED EXAM, GENERAL - Physical Exam Exam: See Below Free Text/Narrative:: My physical exam is in the HPI #1 Interpretation EKG Interpretation Comments: EKG done 08/26/2021 at 9:43 AM shows atrial fibrillation with a rapid ventricular response. Heart rate 172. QT duration 496. QRS axis 75. ST depression in the lateral leads. Impression probable rate related ST depression possible ischemia. Compared to 08/17/2021 atrial fibrillation and RVR is new. Historically however patient has a history of multiple episodes of atrial fibrillation in the past according to him. He is on apixaban. #2 Interpretation EKG Interpretation Comments: EKG performed 08/26/2021 at 9:55 AM shows sinus rhythm in the first 2 sections in atrial fibrillation with RVR in the second 2 sections. Heart rate after the atrial fibrillation reverts 103. QT duration 445. [place] 67. Nonspecific ST depression in the lateral leads slightly improved from 943 EKG. Impression in and out of atrial fibrillation. EKG done 08/26/2021 at 10:06 AM sinus rhythm heart rate 84 IA 180 QT duration [address] [place] [address] and T normal except RSR prime in V1 V2 and probable left atrial enlargement. Impression rate related ST depression in the lateral leads improved. Course - Vital Signs Text/Narrative:: The patient stabilized. Repeat troponin was negative. Discussed with Dr. Nguyen in patient placed in observation status. Last Recorded V/S: Last Vital Signs Temp 36.4 C 08/27/21 04:00 Pulse 62 08/27/21 04:00 Resp 20 08/27/21 04:00 BP 92/70 08/27/21 04:00 Pulse Ox 90 L 08/27/21 04:00 - Orders/Labs/Meds Orders: Active Orders 24 hr Category Date Time Status Sodium Chloride 0.9% [Saline Flush] Med 08/26/21 10:13 Active 10 ml FLUSH ASDIRECTED PRN Sodium Chloride 0.9% [Saline Flush] Med 08/26/21 10:13 Active 2.5 ml FLUSH ASDIRECTED PRN Saline Lock Insert [OM.PC] Stat Oth 08/26/21 10:13 Ordered Medication Orders Hydrocodone Bitart/Acetaminophen (Acetaminophen/Hydrocodone 325-10 Mg Tab) 1 tab PO Q4H PRN PRN Reason: Pain Last Admin: 08/27/21 06:01 Dose: 1 tab Documented by: CHERI Amiodarone HCl (Amiodarone 200 Mg Tab) 200 mg PO DAILY [facility] Apixaban (Apixaban 5 Mg Tab) 5 mg PO BID [facility] Last Admin: 08/26/21 20:51 Dose: 5 mg Documented by: CHERI Atorvastatin Calcium (Atorvastatin 40 Mg Tab) 40 mg PO BEDTIME CHEKO Last Admin: 08/26/21 20:51 Dose: 40 mg Documented by: CHERI Dextrose/Water (50% Dextrose In Water 50 Ml Syringe) 50 ml IVPUSH ASDIRECTED PRN PRN Reason: Hypoglycemia Duloxetine HCl (Duloxetine 60 Mg Cap) 60 mg PO DAILY [facility] Glucagon (Glucagon,Human Recombinant 1 Mg Vial) 1 mg IM ASDIRECTED PRN PRN Reason: Hypoglycemia Insulin Aspart (Insulin Aspart 100 Units/Ml 3 Ml Pen) 0 unit SUBCUT TIDAC [facility]; Protocol Last Admin: 08/26/21 18:59 Dose: Not Given Documented by: DEBBIE Insulin Glargine (Insulin Glargine,Human Rec. Analog 100 Units/Ml 3 Ml Pen) 16 units SUBCUT BEDTIME [facility] Last Admin: 08/26/21 20:53 Dose: 16 unit Documented by: CHERI Labetalol HCl (Labetalol 100 Mg/20 Ml Mdv) 10 mg IVPUSH Q4H PRN; Protocol PRN Reason: Hypertension Last Admin: 08/26/21 17:48 Dose: 10 mg Documented by: DEBBIE Lisinopril (Lisinopril 5 Mg Tab) 5 mg PO DAILY [facility] Metoprolol Succinate (Metoprolol Succinate 50 Mg Tab.Er) 75 mg PO BEDTIME [facility] Last Admin: 08/26/21 20:50 Dose: 75 mg Documented by: CHERI Non-Formulary Medication (Ranitidine) 150 mg PO BID PRN PRN Reason: Other Non-Formulary Medication (Ticagrelor) 90 mg PO BID [facility] Omeprazole (Omeprazole 20 Mg Cap.Cr) 20 mg PO ACBREAKFAST [facility] Pregabalin (Pregabalin 200 Mg Cap) 200 mg PO TID [facility] Last Admin: 08/27/21 05:59 Dose: 200 mg Documented by: Admin: 08/26/21 21:03 Dose: 200 mg Documented by: CHERI Quetiapine Fumarate (Quetiapine 100 Mg Tab) 200 mg PO BEDTIME [facility] Last Admin: 08/26/21 20:52 Dose: 200 mg Documented by: CHERI Sodium Chloride (Sodium Chloride 0.9% 10 Ml Syringe) 10 ml FLUSH ASDIRECTED PRN PRN Reason: Keep Vein Open Last Admin: 08/26/21 10:26 Dose: 10 ml Documented by: HELDER Sodium Chloride (Sodium Chloride 0.9% 2.5 Ml Syringe) 2.5 ml FLUSH ASDIRECTED PRN PRN Reason: Keep Vein Open Last Admin: 08/26/21 10:26 Dose: 2.5 ml Documented by: HELDER Trazodone HCl (Trazodone 50 Mg Tab) 50 mg PO BEDTIME CHEKO Last Admin: 08/26/21 20:51 Dose: 50 mg Documented by: CHERI Venlafaxine HCl (Venlafaxine 75 Mg Cap.Er) 75 mg PO DAILY [facility] Labs: Laboratory Tests 08/26/21 08/26/21 08/26/21 Range/Units 10:00 10:00 10:00 WBC 11.76 H (4.0-11.0) K/uL RBC 5.12 (4.50-5.90) M/uL Hgb 16.1 (13.0-17.0) g/dL Hct 47.8 (38.0-50.0) % MCV 93.4 (80.0-98.0) fL MCH 31.4 (27.0-32.0) pg MCHC 33.7 (31.0-37.0) g/dL RDW Std Deviation 45.8 (28.0-62.0) fl RDW Coeff of Dennis 13 (11.0-15.0) % Plt Count 202 (150-400) K/uL MPV 11.80 (7.40-12.00) fL Neut % (Auto) 58.9 (48.0-80.0) % Lymph % (Auto) 31.0 (16.0-40.0) % [place] % (Auto) 7.5 (0.0-15.0) % Eos % (Auto) 2.3 (0.0-7.0) % Baso % (Auto) 0.3 (0.0-1.5) % Neut # (Auto) 6.9 H (1.4-5.7) K/uL Lymph # (Auto) 3.7 H (0.6-2.4) K/uL [place] # (Auto) 0.9 H (0.0-0.8) K/uL Eos # (Auto) 0.3 (0.0-0.7) K/uL Baso # (Auto) 0.0 (0.0-0.1) K/uL Nucleated RBC % 0.0 /100WBC Nucleated RBCs # 0 K/uL Sodium 138 (136-148) mmol/L Potassium 3.8 (3.5-5.1) mmol/L Chloride 101 (98-107) mmol/L Carbon Dioxide 29.1 (21.0-32.0) mmol/L BUN 9 (7.0-18.0) mg/dL Creatinine 1.0 (0.8-1.3) mg/dL Est Cr Clr Drug Dosing 85.45 mL/min Estimated GFR (MDRD) > 60.0 ml/min Glucose 297 H (74-106) mg/dL Calcium 9.1 (8.5-10.1) mg/dL Magnesium 1.8 (1.8-2.4) mg/dL Total Bilirubin 0.4 (0.2-1.0) mg/dL AST 11 L (15-37) IU/L ALT 23 (14-63) IU/L Alkaline Phosphatase 70 (46-116) U/L Troponin I < 0.050 (0.000-0.056) ng/mL Total Protein 7.5 (6.4-8.2) g/dL Albumin 3.4 (3.4-5.0) g/dL Globulin 4.1 H (2.6-4.0) g/dL Albumin/Globulin Ratio 0.8 L (0.9-1.6) SARS-CoV-2 RNA (MARCUS) (NEGATIVE) 08/26/21 08/26/21 Range/Units 13:18 14:45 WBC (4.0-11.0) K/uL RBC (4.50-5.90) M/uL Hgb (13.0-17.0) g/dL Hct (38.0-50.0) % MCV (80.0-98.0) fL MCH (27.0-32.0) pg MCHC (31.0-37.0) g/dL RDW Std Deviation (28.0-62.0) fl RDW Coeff of Dennis (11.0-15.0) % Plt Count (150-400) K/uL MPV (7.40-12.00) fL Neut % (Auto) (48.0-80.0) % Lymph % (Auto) (16.0-40.0) % [place] % (Auto) (0.0-15.0) % Eos % (Auto) (0.0-7.0) % Baso % (Auto) (0.0-1.5) % Neut # (Auto) (1.4-5.7) K/uL Lymph # (Auto) (0.6-2.4) K/uL [place] # (Auto) (0.0-0.8) K/uL Eos # (Auto) (0.0-0.7) K/uL Baso # (Auto) (0.0-0.1) K/uL Nucleated RBC % /100WBC Nucleated RBCs # K/uL Sodium (136-148) mmol/L Potassium (3.5-5.1) mmol/L Chloride (98-107) mmol/L Carbon Dioxide (21.0-32.0) mmol/L BUN (7.0-18.0) mg/dL Creatinine (0.8-1.3) mg/dL Est Cr Clr Drug Dosing mL/min Estimated GFR (MDRD) ml/min Glucose (74-106) mg/dL Calcium (8.5-10.1) mg/dL Magnesium (1.8-2.4) mg/dL Total Bilirubin (0.2-1.0) mg/dL AST (15-37) IU/L ALT (14-63) IU/L Alkaline Phosphatase (46-116) U/L Troponin I < 0.050 (0.000-0.056) ng/mL Total Protein (6.4-8.2) g/dL Albumin (3.4-5.0) g/dL Globulin (2.6-4.0) g/dL Albumin/Globulin Ratio (0.9-1.6) SARS-CoV-2 RNA (MARCUS) NEGATIVE (NEGATIVE) Meds: Medications Generic Name Dose Route Start Last Admin Trade Name Freq PRN Reason Stop Dose Admin Hydrocodone Bitart/Acetaminophen 1 tab 08/26/21 18:51 08/27/21 06:01 Acetaminophen/Hydrocodone 325-10 Mg Tab PO 1 tab Q4H PRN Administration Pain Amiodarone HCl 200 mg 08/27/21 09:00 Amiodarone 200 Mg Tab PO DAILY CHEKO Apixaban 5 mg 08/26/21 21:00 08/26/21 20:51 Apixaban 5 Mg Tab PO 5 mg BID CHEKO Administration Atorvastatin Calcium 40 mg 08/26/21 21:00 08/26/21 20:51 Atorvastatin 40 Mg Tab PO 40 mg BEDTIME CHEKO Administration Dextrose/Water 50 ml 08/26/21 16:54 50% Dextrose In Water 50 Ml Syringe IVPUSH ASDIRECTED PRN Hypoglycemia Duloxetine HCl 60 mg 08/27/21 09:00 Duloxetine 60 Mg Cap PO DAILY CHEKO Glucagon 1 mg 08/26/21 16:54 Glucagon,Human Recombinant 1 Mg Vial IM ASDIRECTED PRN Hypoglycemia Insulin Aspart 0 unit 08/26/21 17:00 08/26/21 18:59 Insulin Aspart 100 Units/Ml 3 Ml Pen SUBCUT Not Given TIDAC [facility] Protocol Insulin Glargine 16 units 08/26/21 21:00 08/26/21 20:53 Insulin Glargine,Human Rec. Analog 100 Units/Ml 3 Ml Pen SUBCUT 16 unit BEDTIME CHEKO Administration Labetalol HCl 10 mg 08/26/21 17:00 08/26/21 17:48 Labetalol 100 Mg/20 Ml Mdv IVPUSH 10 mg Q4H PRN Administration Hypertension Protocol Lisinopril 5 mg 08/27/21 09:00 Lisinopril 5 Mg Tab PO DAILY [facility] Metoprolol Succinate 75 mg 08/26/21 21:00 08/26/21 20:50 Metoprolol Succinate 50 Mg Tab.Er PO 75 mg BEDTIME CHEKO Administration Non-Formulary Medication 150 mg 08/26/21 18:51 Ranitidine PO BID PRN Other Non-Formulary Medication 90 mg 08/26/21 21:00 Ticagrelor PO BID CHEKO Omeprazole 20 mg 08/27/21 07:30 Omeprazole 20 Mg Cap.Cr PO ACBREAKFAST [facility]KO Pregabalin 200 mg 08/26/21 22:00 08/27/21 05:59 Pregabalin 200 Mg Cap PO 200 mg TID CHEKO Administration Quetiapine Fumarate 200 mg 08/26/21 21:00 08/26/21 20:52 Quetiapine 100 Mg Tab PO 200 mg BEDTIME CHEKO Administration Sodium Chloride 10 ml 08/26/21 10:13 08/26/21 10:26 Sodium Chloride 0.9% 10 Ml Syringe FLUSH 10 ml ASDIRECTED PRN Administration Keep Vein Open Sodium Chloride 2.5 ml 08/26/21 10:13 08/26/21 10:26 Sodium Chloride 0.9% 2.5 Ml Syringe FLUSH 2.5 ml ASDIRECTED PRN Administration Keep Vein Open Trazodone HCl 50 mg 08/26/21 21:00 08/26/21 20:51 Trazodone 50 Mg Tab PO 50 mg BEDTIME CHEKO Administration Venlafaxine HCl 75 mg 08/27/21 09:00 Venlafaxine 75 Mg Cap.Er PO DAILY CHEKO Discontinued Medications Generic Name Dose Route Start Last Admin Trade Name Freq PRN Reason Stop Dose Admin Hydromorphone HCl 0.5 mg 08/26/21 10:18 08/26/21 10:25 Hydromorphone 2 Mg/Ml Syringe IVPUSH 08/26/21 10:19 0.5 mg ONETIME ONE Administration Metoclopramide HCl 10 mg 08/26/21 10:18 08/26/21 10:25 Metoclopramide 10 Mg/2 Ml Sdv IVPUSH 08/26/21 10:19 10 mg ONETIME ONE Administration Metoprolol Tartrate 5 mg 08/26/21 09:58 08/26/21 10:04 Metoprolol Tartrate 5 Mg/5 Ml Sdv IVPUSH 08/26/21 09:59 5 mg ONETIME ONE Administration Morphine Sulfate 4 mg 08/26/21 10:13 08/26/21 10:30 Morphine 4 Mg/Ml Vial IM 08/26/21 10:14 Not Given ONETIME ONE Departure - Departure Time of Disposition: 16:28 Disposition: Admitted As Inpatient 64 Condition: Fair Clinical Impression: Diaphoresis Chest pain Qualifiers: Chest pain type: unspecified Qualified Code(s): R07.9 - Chest pain, unspecified - Discharge Information - My Orders Last 24 Hours: My Active Orders 08/26/21 10:13 Sodium Chloride 0.9% [Saline Flush] 10 ml FLUSH ASDIRECTED PRN Sodium Chloride 0.9% [Saline Flush] 2.5 ml FLUSH ASDIRECTED PRN Saline Lock Insert [OM.PC] Stat - Assessment/Plan Last 24 Hours: My Active Orders 08/26/21 10:13 Sodium Chloride 0.9% [Saline Flush] 10 ml FLUSH ASDIRECTED PRN Sodium Chloride 0.9% [Saline Flush] 2.5 ml FLUSH ASDIRECTED PRN Saline Lock Insert [OM.PC] Stat
[2021-08-26] MEDS ORDERED: Metoprolol Tartrate 5 MG/5 ML SDV IVPUSH ONE (09:58)
[2021-08-26] MEDS ORDERED: Sodium Chloride 0.9% 10 ML Syringe FLUSH PRN (10:13)
[2021-08-26] MEDS ORDERED: Sodium Chloride 0.9% 2.5 ML Syringe FLUSH PRN (10:13)
[2021-08-26] MEDS ORDERED: Morphine 4 MG/ML VIAL IM ONE (10:13)
[2021-08-26] MEDS ORDERED: Metoclopramide 10 MG/2 ML SDV IVPUSH ONE (10:18)
[2021-08-26] MEDS ORDERED: HYDROmorphone 2 MG/ML Syringe IVPUSH ONE (10:18)
[2021-08-26 10:48] LABS: BLOOD UREA NITROGEN,BUN 9 mg/dL (7.0-18.0); CARBON DIOXIDE,CO2 29.1 mmol/L (21.0-32.0); CHLORIDE,CL 101 mmol/L (98-107); GLUCOSE RANDOM 297 mg/dL (74-106); POTASSIUM,K 3.8 mmol/L (3.5-5.1); SODIUM,NA 138 mmol/L (136-148)
--- NOTE | 2021-08-26 11:28 | CR ---
INDICATION: Chest pain. TECHNIQUE: Chest 1 view. COMPARISON: Chest radiograph 08/15/2021. FINDINGS: No focal consolidation, pleural effusion, or pneumothorax. Normal heart size and pulmonary vascularity. Partially visualized cervical spine hardware. IMPRESSION: No acute cardiopulmonary findings. Dictated by Hannah Bates MD @ 08/26/2021 11:25:46 AM (Electronically Signed)
[2021-08-26] MEDS ORDERED: Glucagon,Human Recombinant 1 MG Vial IM PRN (16:54)
[2021-08-26] MEDS ORDERED: 50% Dextrose in Water 50 ML Syringe IVPUSH PRN (16:54)
[2021-08-26] MEDS ORDERED: Labetalol 100 MG/20 ML MDV IVPUSH PRN (17:00)
[2021-08-26] MEDS ORDERED: Non-Formulary Medication 1 Each (Ranitidine 150 MG Tablet) PO PRN (18:51)
[2021-08-26] MEDS: Insulin Aspart 100 Units/ML 3 ML Pen SUBCUT SCH (18:59)
--- NOTE | 2021-08-26 19:02 | PCM.HP.2 ---
H&P History of Present Illness - General Date of Service: 08/26/21 Admit Problem/Dx: Admission Diagnosis/Problem Admission Diagnosis/Problem Chest pain - History of Present Illness Initial Comments - Free Text/Narative: 61 yo male with pmh of CAD, CVA, and diabetes who presents with complaints of chest pain. He was admitted last week for chest pain. Yesterday he had the first half of his nuclear stress test. Today when he woke up he felt sick. He reports aches and pains all over his body. He was diaphoretic, short of breath with substernal chest pain. He was sent to the ED. In the ED his EKG and chest x-ray were negative for signs of acute ischemia chest Pain Score (Numeric/FACES): 7 - Related Data Allergies/Adverse Reactions: Allergies Allergy/AdvReac Type Severity Reaction Status Date / Time bee venom protein (honey bee) Allergy Anaphylactic Verified 08/26/21 09:59 Shock Home Medications: Home Meds Apixaban [Eliquis] 5 mg PO BID 04/20/19 [History] DULoxetine HCl [Duloxetine HCl] 1 tab PO DAILY 04/20/19 [History] atorvaSTATin [Lipitor] 40 mg PO BEDTIME 08/07/19 [History] Ranitidine [Zantac] 150 mg PO BID PRN MDD Acid Grade Recorder 09/05/19 [History] Amiodarone [Cordarone] 200 mg PO DAILY 09/29/19 [History] Insulin Glargine,Hum.Rec.Anlog [Basaglar Kwikpen U-100] 16 unit SQ DAILY 09/29/19 [History] Hydrocodone/Acetaminophen [HYDROcodone-Acetaminophen 10-325 MG] 1 tab PO Q4H PRN 08/16/21 [History] Metoprolol Succinate 75 mg PO BEDTIME 08/16/21 [History] QUEtiapine [SEROquel] 200 mg PO BEDTIME 08/16/21 [History] Ticagrelor [Brilinta] 90 mg PO BID 08/16/21 [History] Venlafaxine HCl [Venlafaxine ER] 75 mg PO DAILY 08/16/21 [History] lisinopriL [Lisinopril] 5 mg PO DAILY 08/16/21 [History] Alum [place]/Mag [place]/Simeth XS [Mag-Al Plus XS] 30 ml PO Q6H #60 cup 08/17/21 [Rx] Omeprazole 20 mg PO ACBREAKFAST #30 cap.sr 08/17/21 [Rx] Pregabalin [Lyrica] 200 mg PO TID 08/26/21 [History] metFORMIN HCl [Metformin HCl ER] 500 mg PO DAILY 08/26/21 [History] traZODone 50 mg PO BEDTIME 08/26/21 [History] Past Medical History HEENT History: Reports: None Other HEENT History: upper and lower dentures Cardiovascular History: Reports: Arrhythmia, Blood Clots/VTE/DVT, CAD, Hypertension Other Cardiovascular History: Afib w/ rvr Respiratory History: Reports: COPD Gastrointestinal History: Reports: Bowel Obstruction, GERD, Other (See Below) Other Gastrointestinal History: Intestinal rupture Genitourinary History: Reports: None Musculoskeletal History: Reports: Back Pain, Chronic, Fracture Neurological History: Reports: CVA Other Neuro History: 3 strokes in the last 1.5 years Psychiatric History: Reports: Anxiety, Depression Endocrine/Metabolic History: Reports: Diabetes, Type II Hematologic History: Reports: None Immunologic History: Reports: None Oncologic (Cancer) History: Reports: None Dermatologic History: Reports: None - Infectious Disease History Infectious Disease History: Reports: Chicken Pox - Past Surgical History Head Surgeries/Procedures: Reports: None HEENT Surgical History: Reports: None Cardiovascular Surgical History: Reports: Cardiac Ablation, Other (See Below) Other Cardiovascular Surgeries/Procedures: Cardioversion ablation Respiratory Surgical History: Reports: None GI Surgical History: Reports: Colonoscopy, Small Bowel Male Surgical History: Reports: None Endocrine Surgical History: Reports: None Neurological Surgical History: Reports: None Musculoskeletal Surgical History: Reports: Other (See Below) Other Musculoskeletal Surgeries/Procedures:: 6 back surgeries, 2 neck surgeries, titanium plate in neck Oncologic Surgical History: Reports: None Dermatological Surgical History: Reports: None Social & Family History - Family History Family Medical History: No Pertinent Family History Musculoskeletal: Reports: Gout Oncologic: Reports: Other (See Below) Other Oncologic Family History: patient states mother had cancer, unsure of what kind. - Tobacco Use Tobacco Use Status *Q: Current Every Day Tobacco User Years of Tobacco use: 30 Packs/Tins Daily: 1 - Caffeine Use Caffeine Use: Reports: Coffee, Soda Other Caffeine Use: 1-2 a day Caffeine Use Comment: occasional/2 cups of coffee per week - Recreational Drug Use Recreational Drug Use: No Drug Use in Last 12 Months: Yes Recreational Drug Type: Reports: Marijuana/Hashish Recreational Drug Use Frequency: Weekly - Living Situation & Occupation Living situation: Reports: with Family Occupation: Retired H&P Review of Systems - Review of Systems: Review Of Systems: Comprehensive ROS is negative, except as noted in HPI. Exam - Exam Exam: See Below - Vital Signs Vital Signs: Last Vital Signs Temp 35.1 C L 08/26/21 09:59 Pulse 70 08/26/21 15:28 Resp 18 08/26/21 10:28 BP 185/93 H 08/26/21 15:04 Pulse Ox 92 L 08/26/21 15:28 Weight: 100.698 kg - Exam General: Alert, Oriented HEENT: Mucosa Moist & [place] Lungs: Clear to Auscultation, Normal Respiratory Effort Cardiovascular: Regular Rate, Regular Rhythm GI/Abdominal Exam: Normal Bowel Sounds, Soft, Non-Tender Extremities: Normal Inspection, Non-Tender, No Pedal Edema Skin: Warm, Dry, Intact Neurological: Cranial Nerves Intact. No: Focal Deficit - Patient Data Lab Results Last 24 hrs: Laboratory Results - last 24 hr 08/26/21 08/26/21 08/26/21 Range/Units 10:00 10:00 10:00 WBC 11.76 H (4.0-11.0) K/uL RBC 5.12 (4.50-5.90) M/uL Hgb 16.1 (13.0-17.0) g/dL Hct 47.8 (38.0-50.0) % MCV 93.4 (80.0-98.0) fL MCH 31.4 (27.0-32.0) pg MCHC 33.7 (31.0-37.0) g/dL RDW Std Deviation 45.8 (28.0-62.0) fl RDW Coeff of Dennis 13 (11.0-15.0) % Plt Count 202 (150-400) K/uL MPV 11.80 (7.40-12.00) fL Neut % (Auto) 58.9 (48.0-80.0) % Lymph % (Auto) 31.0 (16.0-40.0) % Hand % (Auto) 7.5 (0.0-15.0) % Eos % (Auto) 2.3 (0.0-7.0) % Baso % (Auto) 0.3 (0.0-1.5) % Neut # (Auto) 6.9 H (1.4-5.7) K/uL Lymph # (Auto) 3.7 H (0.6-2.4) K/uL Hand # (Auto) 0.9 H (0.0-0.8) K/uL Eos # (Auto) 0.3 (0.0-0.7) K/uL Baso # (Auto) 0.0 (0.0-0.1) K/uL Nucleated RBC % 0.0 /100WBC Nucleated RBCs # 0 K/uL Sodium 138 (136-148) mmol/L Potassium 3.8 (3.5-5.1) mmol/L Chloride 101 (98-107) mmol/L Carbon Dioxide 29.1 (21.0-32.0) mmol/L BUN 9 (7.0-18.0) mg/dL Creatinine 1.0 (0.8-1.3) mg/dL Est Cr Clr Drug Dosing 85.45 mL/min Estimated GFR (MDRD) > 60.0 ml/min Glucose 297 H (74-106) mg/dL Calcium 9.1 (8.5-10.1) mg/dL Magnesium 1.8 (1.8-2.4) mg/dL Total Bilirubin 0.4 (0.2-1.0) mg/dL AST 11 L (15-37) IU/L ALT 23 (14-63) IU/L Alkaline Phosphatase 70 (46-116) U/L Troponin I < 0.050 (0.000-0.056) ng/mL Total Protein 7.5 (6.4-8.2) g/dL Albumin 3.4 (3.4-5.0) g/dL Globulin 4.1 H (2.6-4.0) g/dL Albumin/Globulin Ratio 0.8 L (0.9-1.6) SARS-CoV-2 RNA (MARCUS) (NEGATIVE) 08/26/21 08/26/21 08/26/21 Range/Units 13:18 14:45 18:12 WBC (4.0-11.0) K/uL RBC (4.50-5.90) M/uL Hgb (13.0-17.0) g/dL Hct (38.0-50.0) % MCV (80.0-98.0) fL MCH (27.0-32.0) pg MCHC (31.0-37.0) g/dL RDW Std Deviation (28.0-62.0) fl RDW Coeff of Dennis (11.0-15.0) % Plt Count (150-400) K/uL MPV (7.40-12.00) fL Neut % (Auto) (48.0-80.0) % Lymph % (Auto) (16.0-40.0) % Hand % (Auto) (0.0-15.0) % Eos % (Auto) (0.0-7.0) % Baso % (Auto) (0.0-1.5) % Neut # (Auto) (1.4-5.7) K/uL Lymph # (Auto) (0.6-2.4) K/uL Hand # (Auto) (0.0-0.8) K/uL Eos # (Auto) (0.0-0.7) K/uL Baso # (Auto) (0.0-0.1) K/uL Nucleated RBC % /100WBC Nucleated RBCs # K/uL Sodium (136-148) mmol/L Potassium (3.5-5.1) mmol/L Chloride (98-107) mmol/L Carbon Dioxide (21.0-32.0) mmol/L BUN (7.0-18.0) mg/dL Creatinine (0.8-1.3) mg/dL Est Cr Clr Drug Dosing mL/min Estimated GFR (MDRD) ml/min Glucose (74-106) mg/dL Calcium (8.5-10.1) mg/dL Magnesium (1.8-2.4) mg/dL Total Bilirubin (0.2-1.0) mg/dL AST (15-37) IU/L ALT (14-63) IU/L Alkaline Phosphatase (46-116) U/L Troponin I < 0.050 < 0.050 (0.000-0.056) ng/mL Total Protein (6.4-8.2) g/dL Albumin (3.4-5.0) g/dL Globulin (2.6-4.0) g/dL Albumin/Globulin Ratio (0.9-1.6) SARS-CoV-2 RNA (MARCUS) NEGATIVE (NEGATIVE) Result Diagrams: 08/26/21 10:00 08/26/21 10:00 Sepsis Event Note - Evaluation Sepsis Screening Result: No Definite Risk - Focused Exam Vital Signs: Vital Signs Temp Pulse Pulse Resp BP BP Pulse Ox 08/26/21 15:28 70 92 L 08/26/21 15:04 71 185/93 H 94 L 08/26/21 14:33 71 154/103 H 91 L 08/26/21 14:08 70 90 L 08/26/21 13:30 72 155/88 H 91 L 08/26/21 13:00 73 171/101 H 89 L 08/26/21 12:30 72 171/95 H 90 L 08/26/21 12:02 74 147/87 H 91 L 08/26/21 11:30 70 156/108 H 89 L 08/26/21 10:58 74 161/96 H 08/26/21 10:28 82 18 144/103 H 91 L 08/26/21 10:20 83 149/108 H 93 L 08/26/21 10:14 81 127/93 H 91 L 08/26/21 10:04 144 H 138/92 H 08/26/21 09:59 35.1 C L 177 H 20 138/92 H 94 L - Problem List (1) Chest pain SNOMED Code(s): 48466118 ICD Code: R07.9 - CHEST PAIN, UNSPECIFIED Status: Acute Current Visit: No Qualifiers: Chest pain type: unspecified Qualified Code(s): R07.9 - Chest pain, unspecified Problem List Initiated/Reviewed/Updated: Yes Orders Last 24hrs: Active Orders 24 hr Category Date Time Status Admission Status [Patient Status] [ADT] Stat ADT 08/26/21 15:30 Active Blood Glucose Check, Bedside [RC] TIDMEALS Care 08/26/21 18:51 Active [employer] [employer] Diet [DIET] Diet 08/26/21 Dinner Active TROPONIN I [CHEM] Routine Lab 08/26/21 22:00 Ordered Acetaminophen/HYDROcodone [Prince 325-10 MG] Med 08/26/21 18:51 Ordered 1 tab PO Q4H PRN Amiodarone [Cordarone] Med 08/27/21 09:00 Ordered 200 mg PO DAILY Apixaban [Eliquis] Med 08/26/21 21:00 Ordered 5 mg PO BID DULoxetine [Cymbalta] Med 08/27/21 09:00 Ordered 60 mg PO DAILY Dextrose 50% in Water Med 08/26/21 16:54 Active 50 ml IVPUSH ASDIRECTED PRN Glucagon,Human Recombinant [GlucaGen] Med 08/26/21 16:54 Active 1 mg IM ASDIRECTED PRN Insulin Aspart [NovoLOG] Med 08/26/21 17:00 Active See Protocol SUBCUT TIDAC Insulin Glarg,Human.Rec.Analog [LantUS Solostar] Med 08/27/21 09:00 Ordered 16 units SUBCUT DAILY Labetalol [Normodyne] Med 08/26/21 17:00 Active 10 mg IVPUSH Q4H PRN Metoprolol Succinate [Toprol XL] Med 08/26/21 21:00 Ordered 75 mg PO BEDTIME Omeprazole Med 08/27/21 07:30 Ordered 20 mg PO ACBREAKFAST Pregabalin [Lyrica] Med 08/26/21 22:00 Ordered 200 mg PO TID QUEtiapine [SEROqueL] Med 08/26/21 21:00 Ordered 200 mg PO BEDTIME Ranitidine Med 08/26/21 18:51 Ordered 150 mg PO BID PRN Sodium Chloride 0.9% [Saline Flush] Med 08/26/21 10:13 Active 10 ml FLUSH ASDIRECTED PRN Sodium Chloride 0.9% [Saline Flush] Med 08/26/21 10:13 Active 2.5 ml FLUSH ASDIRECTED PRN Ticagrelor Med 08/26/21 21:00 Ordered 90 mg PO BID Venlafaxine [Effexor XR] Med 08/27/21 09:00 Ordered 75 mg PO DAILY atorvaSTATin [Lipitor] Med 08/26/21 21:00 Ordered 40 mg PO BEDTIME lisinopriL [Prinivil] Med 08/27/21 09:00 Ordered 5 mg PO DAILY traZODone Med 08/26/21 21:00 Ordered 50 mg PO BEDTIME Saline Lock Insert [OM.PC] Stat Oth 08/26/21 10:13 Ordered Medication Orders Hydrocodone Bitart/Acetaminophen (Acetaminophen/Hydrocodone 325-10 Mg Tab) 1 tab PO Q4H PRN PRN Reason: Pain Amiodarone HCl (Amiodarone 200 Mg Tab) 200 mg PO DAILY [facility] Apixaban (Apixaban 5 Mg Tab) 5 mg PO BID [facility] Atorvastatin Calcium (Atorvastatin 40 Mg Tab) 40 mg PO BEDTIME [facility] Dextrose/Water (50% Dextrose In Water 50 Ml Syringe) 50 ml IVPUSH ASDIRECTED PRN PRN Reason: Hypoglycemia Duloxetine HCl (Duloxetine 60 Mg Cap) 60 mg PO DAILY [facility] Glucagon (Glucagon,Human Recombinant 1 Mg Vial) 1 mg IM ASDIRECTED PRN PRN Reason: Hypoglycemia Insulin Aspart (Insulin Aspart 100 Units/Ml 3 Ml Pen) 0 unit SUBCUT TIDAC [facility]KO; Protocol Insulin Glargine (Insulin Glargine,Human Rec. Analog 100 Units/Ml 3 Ml Pen) 16 units SUBCUT DAILY [facility] Labetalol HCl (Labetalol 100 Mg/20 Ml Mdv) 10 mg IVPUSH Q4H PRN; Protocol PRN Reason: Hypertension Last Admin: 08/26/21 17:48 Dose: 10 mg Documented by: DEBBIE Lisinopril (Lisinopril 5 Mg Tab) 5 mg PO DAILY [facility] Metoprolol Succinate (Metoprolol Succinate 50 Mg Tab.Er) 75 mg PO BEDTIME [facility] Non-Formulary Medication (Ranitidine) 150 mg PO BID PRN PRN Reason: Other Non-Formulary Medication (Ticagrelor) 90 mg PO BID [facility] Omeprazole (Omeprazole 20 Mg Cap.Cr) 20 mg PO ACBREAKFAST [facility] Pregabalin (Pregabalin 200 Mg Cap) 200 mg PO TID [facility] Quetiapine Fumarate (Quetiapine 100 Mg Tab) 200 mg PO BEDTIME [facility] Sodium Chloride (Sodium Chloride 0.9% 10 Ml Syringe) 10 ml FLUSH ASDIRECTED PRN PRN Reason: Keep Vein Open Last Admin: 08/26/21 10:26 Dose: 10 ml Documented by: HELDER Sodium Chloride (Sodium Chloride 0.9% 2.5 Ml Syringe) 2.5 ml FLUSH ASDIRECTED PRN PRN Reason: Keep Vein Open Last Admin: 08/26/21 10:26 Dose: 2.5 ml Documented by: HELDER Trazodone HCl (Trazodone 50 Mg Tab) 50 mg PO BEDTIME [facility] Venlafaxine HCl (Venlafaxine 75 Mg Cap.Er) 75 mg PO DAILY [facility] Assessment/Plan Comment:: 61 yo male admitted with chest pain. Chest pain: We will monitor overnight on telemetry and trend cardiac enzymes. DM/CAD: resume home medications
[2021-08-26] MEDS: Apixaban 5 MG Tab PO SCH (20:51)
[2021-08-26] MEDS ORDERED: QUEtiapine 100 MG Tab PO SCH (21:00)
[2021-08-26] MEDS ORDERED: Metoprolol Succinate 50 MG Tab.ER PO SCH (21:00)
[2021-08-26] MEDS ORDERED: atorvaSTATin 40 MG Tab PO SCH (21:00)
[2021-08-26] MEDS ORDERED: traZODone 50 MG Tab PO SCH (21:00)
[2021-08-26] MEDS ORDERED: Insulin Glargine,Human Rec. Analog 100 Units/ML 3 ML Pen SUBCUT SCH (21:00)
[2021-08-26] MEDS: Pregabalin 200 MG Cap PO SCH (21:03)
[2021-08-27] MEDS: Pregabalin 200 MG Cap PO SCH (05:59)
[2021-08-27] MEDS: Acetaminophen/HYDROcodone 325-10 MG Tab PO PRN ×2 (06:01→10:07)
[2021-08-27] MEDS: Insulin Aspart 100 Units/ML 3 ML Pen SUBCUT SCH ×2 (06:56→12:30)
[2021-08-27] MEDS ORDERED: Omeprazole 20 MG Cap.CR PO SCH (07:30)
[2021-08-27] MEDS: Apixaban 5 MG Tab PO SCH (08:50)
[2021-08-27] MEDS ORDERED: DULoxetine 60 MG Cap PO SCH (09:00)
[2021-08-27] MEDS ORDERED: Venlafaxine 75 MG Cap.ER PO SCH (09:00)
[2021-08-27] MEDS ORDERED: Lisinopril 5 MG Tab PO SCH (09:00)
[2021-08-27] MEDS ORDERED: Amiodarone 200 MG Tab PO SCH (10:30)
--- NOTE | 2021-08-27 12:44 | PCM.DCSUM1 ---
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 dc - Discharge Plan *PRESCRIPTION DRUG MONITORING PROGRAM REVIEWED*: No *COPY OF PRESCRIPTION DRUG MONITORING REPORT IN PATIENT ALEAH: No Home Medications: Home Meds Apixaban [Eliquis] 5 mg PO BID 04/20/19 [History] DULoxetine HCl [Duloxetine HCl] 1 tab PO DAILY 04/20/19 [History] atorvaSTATin [Lipitor] 40 mg PO BEDTIME 08/07/19 [History] Ranitidine [Zantac] 150 mg PO BID PRN MDD Acid Deckhand Clam Dredge 09/05/19 [History] Amiodarone [Cordarone] 200 mg PO DAILY 09/29/19 [History] Insulin Glargine,Hum.Rec.Anlog [Basaglar Kwikpen U-100] 16 unit SQ DAILY 09/29/19 [History] Hydrocodone/Acetaminophen [HYDROcodone-Acetaminophen 10-325 MG] 1 tab PO Q4H PRN 08/16/21 [History] Metoprolol Succinate 75 mg PO BEDTIME 08/16/21 [History] QUEtiapine [SEROquel] 200 mg PO BEDTIME 08/16/21 [History] Ticagrelor [Brilinta] 90 mg PO BID 08/16/21 [History] Venlafaxine HCl [Venlafaxine ER] 75 mg PO DAILY 08/16/21 [History] lisinopriL [Lisinopril] 5 mg PO DAILY 08/16/21 [History] Alum [place]/Mag [place]/Simeth XS [Mag-Al Plus XS] 30 ml PO Q6H #60 cup 08/17/21 [Rx] Omeprazole 20 mg PO ACBREAKFAST #30 cap.sr 08/17/21 [Rx] Pregabalin [Lyrica] 200 mg PO TID 08/26/21 [History] metFORMIN HCl [Metformin HCl ER] 500 mg PO DAILY 08/26/21 [History] traZODone 50 mg PO BEDTIME 08/26/21 [History] Referrals: Gibson Ansari DO [Primary Care Provider] - - Patient Data Vitals - Most Recent: Last Vital Signs Temp 36.4 C 08/27/21 08:00 Pulse 60 08/27/21 08:00 Resp 19 08/27/21 08:00 BP 119/72 08/27/21 08:50 Pulse Ox 92 L 08/27/21 08:00 Weight - Most Recent: 100.698 kg I&O - Last 24 hours: Intake & Output 08/26/21 08/27/21 08/27/21 22:59 06:59 14:59 Intake Total 720 Output Total 0 Balance 720 Lab Results - Last 24 hrs: Laboratory Results - last 24 hr 08/26/21 08/26/21 08/26/21 Range/Units 13:18 14:45 18:12 POC Glucose (70-99) mg/dL Troponin I < 0.050 < 0.050 (0.000-0.056) ng/mL SARS-CoV-2 RNA (MARCUS) NEGATIVE (NEGATIVE) 08/26/21 08/26/21 08/27/21 Range/Units 20:49 22:09 05:56 POC Glucose 257 H 133 H (70-99) mg/dL Troponin I < 0.050 (0.000-0.056) ng/mL SARS-CoV-2 RNA (MARCUS) (NEGATIVE) 08/27/21 Range/Units 11:22 POC Glucose 258 H (70-99) mg/dL Troponin I (0.000-0.056) ng/mL SARS-CoV-2 RNA (MARCUS) (NEGATIVE) Med Orders - Current: Current Medications Hydrocodone Bitart/Acetaminophen (Acetaminophen/Hydrocodone 325-10 Mg Tab) 1 tab PO Q4H PRN PRN Reason: Pain Last Admin: 08/27/21 10:07 Dose: 1 tab Documented by: Amiodarone HCl (Amiodarone 200 Mg Tab) 200 mg PO DAILY [facility] Last Admin: 08/27/21 11:23 Dose: 200 mg Documented by: Apixaban (Apixaban 5 Mg Tab) 5 mg PO BID [facility] Last Admin: 08/27/21 08:50 Dose: 5 mg Documented by: Atorvastatin Calcium (Atorvastatin 40 Mg Tab) 40 mg PO BEDTIME [facility] Last Admin: 08/26/21 20:51 Dose: 40 mg Documented by: Dextrose/Water (50% Dextrose In Water 50 Ml Syringe) 50 ml IVPUSH ASDIRECTED PRN PRN Reason: Hypoglycemia Glucagon (Glucagon,Human Recombinant 1 Mg Vial) 1 mg IM ASDIRECTED PRN PRN Reason: Hypoglycemia Insulin Aspart (Insulin Aspart 100 Units/Ml 3 Ml Pen) 0 unit SUBCUT TIDAC [facility]; Protocol Last Admin: 08/27/21 12:30 Dose: 4 units Documented by: Insulin Glargine (Insulin Glargine,Human Rec. Analog 100 Units/Ml 3 Ml Pen) 16 units SUBCUT BEDTIME [facility] Last Admin: 08/26/21 20:53 Dose: 16 unit Documented by: Labetalol HCl (Labetalol 100 Mg/20 Ml Mdv) 10 mg IVPUSH Q4H PRN; Protocol PRN Reason: Hypertension Last Admin: 08/26/21 17:48 Dose: 10 mg Documented by: Lisinopril (Lisinopril 5 Mg Tab) 5 mg PO DAILY [facility] Last Admin: 08/27/21 08:50 Dose: 5 mg Documented by: Metoprolol Succinate (Metoprolol Succinate 50 Mg Tab.Er) 75 mg PO BEDTIME [facility] Last Admin: 08/26/21 20:50 Dose: 75 mg Documented by: Omeprazole (Omeprazole 20 Mg Cap.Cr) 20 mg PO ACBREAKFAST [facility] Last Admin: 08/27/21 06:56 Dose: 20 mg Documented by: Ticagrelor 90 Mg (Tablet) 1 each PO BID [facility] Last Admin: 08/27/21 11:25 Dose: Not Given Documented by: Pregabalin (Pregabalin 200 Mg Cap) 200 mg PO TID [facility] Last Admin: 08/27/21 05:59 Dose: 200 mg Documented by: Quetiapine Fumarate (Quetiapine 100 Mg Tab) 200 mg PO BEDTIME [facility] Last Admin: 08/26/21 20:52 Dose: 200 mg Documented by: Sodium Chloride (Sodium Chloride 0.9% 10 Ml Syringe) 10 ml FLUSH ASDIRECTED PRN PRN Reason: Keep Vein Open Last Admin: 08/26/21 10:26 Dose: 10 ml Documented by: Sodium Chloride (Sodium Chloride 0.9% 2.5 Ml Syringe) 2.5 ml FLUSH ASDIRECTED PRN PRN Reason: Keep Vein Open Last Admin: 08/26/21 10:26 Dose: 2.5 ml Documented by: Trazodone HCl (Trazodone 50 Mg Tab) 50 mg PO BEDTIME [facility] Last Admin: 08/26/21 20:51 Dose: 50 mg Documented by: Venlafaxine HCl (Venlafaxine 75 Mg Cap.Er) 75 mg PO DAILY [facility] Last Admin: 08/27/21 08:50 Dose: 75 mg Documented by: Discontinued Medications Duloxetine HCl (Duloxetine 60 Mg Cap) 60 mg PO DAILY [facility] Last Admin: 08/27/21 11:23 Dose: Not Given Documented by: Hydromorphone HCl (Hydromorphone 2 Mg/Ml Syringe) 0.5 mg IVPUSH ONETIME ONE Stop: 08/26/21 10:19 Last Admin: 08/26/21 10:25 Dose: 0.5 mg Documented by: Metoclopramide HCl (Metoclopramide 10 Mg/2 Ml Sdv) 10 mg IVPUSH ONETIME ONE Stop: 08/26/21 10:19 Last Admin: 08/26/21 10:25 Dose: 10 mg Documented by: Metoprolol Tartrate (Metoprolol Tartrate 5 Mg/5 Ml Sdv) 5 mg IVPUSH ONETIME ONE Stop: 08/26/21 09:59 Last Admin: 08/26/21 10:04 Dose: 5 mg Documented by: Morphine Sulfate (Morphine 4 Mg/Ml Vial) 4 mg IM ONETIME ONE Stop: 08/26/21 10:14 Last Admin: 08/26/21 10:30 Dose: Not Given Documented by:
== END 2021-08-27 14:00 | disposition home or self-care (01) ==
LOC: MW.ED 09:44 → MW.MS 15:30 → MW.ED 15:40 → UNDOADMOB 16:15 → MW.MS 16:15
PROVIDERS: ADMIT Internal Medicine; ATTEND Internal Medicine
DX: R07.9 Chest pain, unspecified (principal); I25.10 Atherosclerotic heart disease of native coronary artery without angina pectoris; I10 Essential (primary) hypertension; E11.9 Type 2 diabetes mellitus without complications; F17.210 Nicotine dependence, cigarettes, uncomplicated; Z91.030 Bee allergy status; Z79.899 Other long term (current) drug therapy; Z79.4 Long term (current) use of insulin; Z86.73 Personal history of transient ischemic attack (TIA), and cerebral infarction without residual deficits; Z79.84 Long term (current) use of oral hypoglycemic drugs; Z20.822 Contact with and (suspected) exposure to COVID-19
CPT/HCPCS: 36415; 71045; 80053; 82947; 83735; 84484; 85025; 96374; 96375; 99285; A9270; G0378; J1170; J1815; J2765; J3490; U0002

== ENCOUNTER 2021-10-16 00:02 | Inpatient (IN) | payer MEDICARE, OTHER ==
[2021-10-16] MEDS ORDERED: Sodium Chloride 0.9% 1,000 ML IV ONE ×4 (00:26→02:38)
[2021-10-16] MEDS ORDERED: fentaNYL/Normal Saline 2,500 MCG in Premix Bag 1 BAG IV PRN (00:27)
[2021-10-16] MEDS ORDERED: fentaNYL 50 MCG/ML SDV IVPUSH ONE (00:29)
[2021-10-16] MEDS ORDERED: Cefepime 2 GM in Premix Bag 1 BAG IV ONE ×2 (00:29→12:00)
[2021-10-16] MEDS ORDERED: fentaNYL/Normal Saline 250 ML ONE (00:44)
--- NOTE | 2021-10-16 00:59 | EDM.PDOC ---
<Enrique Rai - Last Filed: 10/16/21 06:47> ED HPI GENERAL MEDICAL PROBLEM - General Chief Complaint: Cardiovascular Problem Stated Complaint: OVERDOSE Time Seen by Provider: 10/16/21 00:25 Source of Information: Reports: EMS, Old Records History Limitations: Reports: Other (vent) - History of Present Illness INITIAL COMMENTS - FREE TEXT/NARRATIVE: 61-year-old male past medical history A. fib, hypertension, type 2 diabetes, history of CVA, on Eliquis, on amiodarone, on chronic opioid pain medications presents for unresponsiveness. History is limited secondary to patient condition. History from EMS. Patient was last seen 20 minutes prior when roommate walked them and found patient on the ground unresponsive. EMS was called and noted patient to have thready pulses and agonal breathing. He was given Narcan with no response. IV access was difficult to obtain so an IO line was placed. Patient was intubated for airway protection. He received etomidate and rocuronium prior to arrival. Patient did have a blood sugar taken by EMS which was in the 300s. Their EKG showed atrial fibrillation with rapid ventricular response. Patient was also noted to be febrile to 103 F. - Related Data Allergies Allergy/AdvReac Type Severity Reaction Status Date / Time bee venom protein (honey bee) Allergy Anaphylactic Unverified 10/16/21 12:37 Shock Home Meds: Home Meds Apixaban [Eliquis] 5 mg PO BID 04/20/19 [History] DULoxetine HCl [Duloxetine HCl] 1 tab PO DAILY 04/20/19 [History] atorvaSTATin [Lipitor] 40 mg PO BEDTIME 08/07/19 [History] Ranitidine [Zantac] 150 mg PO BID PRN MDD Acid Allergist/Md 09/05/19 [History] Amiodarone [Cordarone] 200 mg PO DAILY 09/29/19 [History] Insulin Glargine,Hum.Rec.Anlog [Basaglar [place] U-100] 16 unit SQ DAILY 09/29/19 [History] Hydrocodone/Acetaminophen [HYDROcodone-Acetaminophen 10-325 MG] 1 tab PO Q4H PRN 08/16/21 [History] Metoprolol Succinate 75 mg PO BEDTIME 08/16/21 [History] QUEtiapine [SEROquel] 200 mg PO BEDTIME 08/16/21 [History] Ticagrelor [Brilinta] 90 mg PO BID 08/16/21 [History] Venlafaxine HCl [Venlafaxine ER] 75 mg PO DAILY 08/16/21 [History] lisinopriL [Lisinopril] 5 mg PO DAILY 08/16/21 [History] Alum [place]/Mag [place]/Simeth XS [Mag-Al Plus XS] 30 ml PO Q6H #60 cup 08/17/21 [Rx] Omeprazole 20 mg PO ACBREAKFAST #30 cap.sr 08/17/21 [Rx] Pregabalin [Lyrica] 200 mg PO TID 08/26/21 [History] metFORMIN HCl [Metformin HCl ER] 500 mg PO DAILY 08/26/21 [History] traZODone 50 mg PO BEDTIME 08/26/21 [History] Past Medical History HEENT History: Reports: None Other HEENT History: upper and lower dentures Cardiovascular History: Reports: Arrhythmia, Blood Clots/VTE/DVT, CAD, Hypertension Other Cardiovascular History: Afib w/ rvr Respiratory History: Reports: COPD Gastrointestinal History: Reports: Bowel Obstruction, GERD, Other (See Below) Other Gastrointestinal History: Intestinal rupture Genitourinary History: Reports: None Musculoskeletal History: Reports: Back Pain, Chronic, Fracture Neurological History: Reports: CVA Other Neuro History: 3 strokes in the last 1.5 years Psychiatric History: Reports: Anxiety, Depression Endocrine/Metabolic History: Reports: Diabetes, Type II Hematologic History: Reports: None Immunologic History: Reports: None Oncologic (Cancer) History: Reports: None Dermatologic History: Reports: None - Infectious Disease History Infectious Disease History: Reports: Chicken Pox - Past Surgical History Head Surgeries/Procedures: Reports: None HEENT Surgical History: Reports: None Cardiovascular Surgical History: Reports: Cardiac Ablation, Other (See Below) Other Cardiovascular Surgeries/Procedures: Cardioversion ablation Respiratory Surgical History: Reports: None GI Surgical History: Reports: Colonoscopy, Small Bowel Male Surgical History: Reports: None Endocrine Surgical History: Reports: None Neurological Surgical History: Reports: None Musculoskeletal Surgical History: Reports: Other (See Below) Other Musculoskeletal Surgeries/Procedures:: 6 back surgeries, 2 neck surgeries, titanium plate in neck Oncologic Surgical History: Reports: None Dermatological Surgical History: Reports: None Social & Family History - Family History Family Medical History: No Pertinent Family History Musculoskeletal: Reports: Gout Oncologic: Reports: Other (See Below) Other Oncologic Family History: patient states mother had cancer, unsure of what kind. - Caffeine Use Caffeine Use: Reports: Coffee, Soda Other Caffeine Use: 1-2 a day Caffeine Use Comment: occasional/2 cups of coffee per week - Living Situation & Occupation Living situation: Reports: with Family Occupation: Retired ED ROS GENERAL - Review of Systems Review Of Systems: See Below (Clinical condition) Reason Not Obtained: Clinical condition ED EXAM, GENERAL - Physical Exam Exam: See Below Exam Limited By: No Limitations General Appearance: Other (GCS 3 T) Eye Exam: Bilateral Eye: PERRL Nose: Normal Inspection Head: Atraumatic, Normocephalic Neck: Normal Inspection, Other (No step-off deformity palpated) Respiratory/Chest: Other (Clear and equal lungs with bagging bilaterally) Cardiovascular: No Edema, Tachycardia, Irregularly Irregular GI/Abdominal: Soft, No Distention Back Exam: Normal Inspection Extremities: Normal Inspection Neurological: Other (GCS 3 T) Skin Exam: Warm, Dry, Intact, Normal Color ED CENTRAL LINE INSERTION - Central Line Insertion Central Line Indication: IV access, medication administration Site: internal jugular (L) Prep: CDC/MBT Guidelines Lumen: triple Gauge: 7Fr Ultrasound guided: Yes Guidewire and dilator removed intact: Yes Complications: No Secured with suture: Yes Post placement confirmation: CXR, all ports aspirated, all ports flushed CXR post-procedure: no pneumothorax Dressing applied: by provider #1 Interpretation EKG Date: 10/15/21 Time: 23:51 Rhythm: A-Fib Rate (Beats/Min): 162 [place]: Normal QRS: Normal ST-T: Normal QT: Normal EKG Interpretation Comments: Afib RVR Course - Re-Assessments/Exams Free Text/Narrative Re-Assessment/Exam: 10/16/21 00:58 Patient presents unresponsive. Patient was intubated by EMS. The tube is a little deep on chest x-ray imaging so it was pulled back. IV access was very difficult to obtain so a central line was placed in the left internal jugular vein. Patient's heart rate is very labile ranging from 130s to 190s. Blood pressure is improving with IV fluids however patient was hypotensive to 80s over 40s on arrival. We will continue aggressive IV fluid hydration. Considering the limited history will obtain extensive lab work-up and imaging. 10/16/21 01:28 Patient's heart rate ranging from 110s to 140s. Blood pressure was initially improving, however, it does remain low so we will start Levophed drip. 10/16/21 01:44 Labs remarkable for elevated lactate, negative troponin, normal CBC, grossly unremarkable blood gas, UDS is positive for opioids and methamphetamine, Covid test is positive. Decadron and remdesivir ordered. D-dimer is elevated, will get CTA of the chest to rule pulmonary embolism. Will get CT scan of abdomen and pelvis as well as head CT and C-spine considering the limited history in this patient. Hyperglycemia but AGAP is 10; no evidence DKA. Maintenance fluids ordered at 100cc/hr 10/16/21 01:58 I did attempt to reach out to patient's son for additional history, however, the voicemail box is not set up so I was unable to leave a message. Patient's heart rate has improved to 90s - 100s. 10/16/21 02:43 Through chart searching, it appears patient has received Moderna COVID-19 vaccination. 10/16/21 03:23 Levophed at 10; patient stable. NGT placed as I did not place one after intubation. Will check rpt CXR. Pending imaging for disposition. Patient will require transfer of care. I don't see any large saddle embolism or particularly severe COVID pneumonia to explain patient's clinical condition. 10/16/21 04:23 Imaging read and is essentially unremarkable. Some bibasilar atelectasis but not the typical COVID pneumonia pattern. No PE. CT A/P unremarkable. CT head and C- spine unremarkable. Repeat CXR after NGT shows tube in place. I did call [facility], [facility], and [facility] are unfortunately unable to take the patient. Levophed remains at 10mcg/min; fentanyl at 50mcg/hr. Patient is adequately sedated and vitals are stable. Will continue to board patient until he can be appropriately placed. 10/16/21 04[facility] report until 7:30AM. They would like us to call their one-call number around 7:30-8AM and give report. I will continue to observe patient and anticipate sign out to day-team ED physician to complete the transfer process. 10/16/21 07:00 Patient remains stable. I did change his FiO2 to 50% as he is satting well and repeat blood gas shows elevated PO2. Patient care signed out to day-team ED physician Dr. Kenny to follow-up transfer of care. Departure - Departure Disposition: Admitted As Inpatient 64 Condition: Serious Clinical Impression: Unresponsive state, COVID-19, Methamphetamine abuse Hypotension Qualifiers: Hypotension type: unspecified hypotension type Qualified Code(s): I95.9 - Hypotension, unspecified - Discharge Information Referrals: PCP,None [Primary Care Provider] - Forms: ED Department Discharge Critical Care Note - Critical Care Note Total Time (mins): 45 <Nilson Kenny - Last Filed: 10/16/21 12:57> Course - Vital Signs Last Recorded V/S: Last Vital Signs Temp 97.9 F 10/16/21 09:05 Pulse 116 H 10/16/21 12:41 Resp 16 10/16/21 11:00 BP 132/89 10/16/21 12:41 Pulse Ox 98 10/16/21 11:00 - Orders/Labs/Meds Orders: Active Orders 24 hr Category Date Time Status Admission Status [Patient Status] [ADT] Stat ADT 10/16/21 12:56 Ordered Cardiac Monitoring [RC] . DIRECTED Care 10/16/21 00:26 Active Insert Flor Catheter [Insert Urinary Catheter] [OM.PC] Care 10/16/21 00:45 Ordered Q24H Pulse Oximetry [RC] ASDIRECTED Care 10/16/21 00:26 Active Urinary Catheter Assessment [RC] ASDIRECTED Care 10/16/21 00:45 Active CORONAVIRUS COVID-19 MARCUS [MOLEC] Stat Lab 10/16/21 00:26 Stop Req COVID-19/FLU A+B/RSV [MOLEC] Stat Lab 10/16/21 00:26 Stop Req CULTURE BLOOD [BC] Stat Lab 10/16/21 00:15 Received CULTURE BLOOD [BC] Stat Lab 10/16/21 01:17 Received VANCOMYCIN TROUGH [CHEM] Timed Lab 10/18/21 02:00 Ordered Midazolam [Versed 5 MG/ML] 50 mg Med 10/16/21 08:45 Active Sodium Chloride 0.9% [Normal Saline] 40 ml IV TITRATE Norepinephrine Bit/0.9 % NaCl [Norepinephr-0.9% NaCl 4 Med 10/16/21 01:30 Active mg/250] 4 mg in 250 ml IV TITRATE Norepinephrine Bit/0.9 % NaCl [Norepinephr-0.9% NaCl 4 Med 10/16/21 08:45 Active mg/250] 4 mg in 250 ml IV TITRATE Pharmacy to Dose - Vancomycin Med 10/16/21 09:00 Active 1 dose .XX DAILY VANCOmycin 1.5 GM/300 ML 1.5 gm Med 10/16/21 15:00 Active Premix Bag 1 bag IV Q12H fentaNYL/Normal Saline [fentaNYL 2500 MCG in NS 250 ML Med 10/16/21 00:27 Active (10 MCG/ML)] 2,500 mcg Premix Bag 1 bag IV TITRATE Blood Culture x2 Reflex Set [OM.PC] Stat Oth 10/16/21 00:27 Ordered Isolation [COMM] Routine Oth 10/16/21 00:26 Active Saline Lock Insert [OM.PC] Stat Oth 10/16/21 00:26 Ordered Medication Orders Fentanyl Citrate 2,500 mcg/ (Premix) 250 mls @ 2.5 mls/hr IV TITRATE PRN; Protocol PRN Reason: Sedation Last Titration: 10/16/21 08:36 Dose: 75 mcg/hr, 7.5 mls/hr Documented by: Titration: 10/16/21 08:18 Dose: 100 mcg/hr, 10 mls/hr Documented by: Titration: 10/16/21 06:03 Dose: 75 mcg/hr, 7.5 mls/hr Documented by: Titration: 10/16/21 02:40 Dose: 50 mcg/hr, 5 mls/hr Documented by: Admin: 10/16/21 01:03 Dose: 25 mcg/hr, 2.5 mls/hr Documented by: SHANTEL Norepinephrine Bitartrate (Norepinephr-0.9% Nacl 4 Mg/250) 4 mg in 250 mls @ 7.5 mls/hr IV TITRATE CHEKO; Protocol Last Titration: 10/16/21 08:18 Dose: 4 mcg/min, 15 mls/hr Documented by: Titration: 10/16/21 01:56 Dose: 2.67 mcg/min, 10 mls/hr Documented by: Admin: 10/16/21 01:42 Dose: 2 mcg/min, 7.5 mls/hr Documented by: SHANTEL Vancomycin HCl 1.5 gm/ Premix 300 mls @ 200 mls/hr IV Q12H CHEKO Midazolam HCl 50 mg/ Sodium (Chloride) 50 mls @ 0.5 mls/hr IV TITRATE CHEKO; Protocol Last Admin: 10/16/21 08:56 Dose: 0.5 mg/hr, 0.5 mls/hr Documented by: JANE Norepinephrine Bitartrate (Norepinephr-0.9% Nacl 4 Mg/250) 4 mg in 250 mls @ 7.5 mls/hr IV TITRATE CHEKO; Protocol Last Admin: 10/16/21 08:54 Dose: 2 mcg/min, 7.5 mls/hr Documented by: JANE Vancomycin HCl (Pharmacy To Dose - Vancomycin) 1 dose .XX DAILY CHEKO Last Admin: 10/16/21 09:25 Dose: Not Given Documented by: JANE Labs: Laboratory Tests 10/16/21 10/16/21 10/16/21 Range/Units 00:07 00:15 00:15 WBC 10.47 (4.0-11.0) K/uL RBC 5.07 (4.50-5.90) M/uL Hgb 15.6 (13.0-17.0) g/dL Hct 47.4 (38.0-50.0) % MCV 93.5 (80.0-98.0) fL MCH 30.8 (27.0-32.0) pg MCHC 32.9 (31.0-37.0) g/dL RDW Std Deviation 45.9 (28.0-62.0) fl RDW Coeff of Dnenis 14 (11.0-15.0) % Plt Count 182 (150-400) K/uL MPV 11.10 (7.40-12.00) fL Neut % (Auto) 73.7 (48.0-80.0) % Lymph % (Auto) 17.1 (16.0-40.0) % [place] % (Auto) 9.0 (0.0-15.0) % Eos % (Auto) 0.1 (0.0-7.0) % Baso % (Auto) 0.1 (0.0-1.5) % Neut # (Auto) 7.7 H (1.4-5.7) K/uL Lymph # (Auto) 1.8 (0.6-2.4) K/uL [place] # (Auto) 0.9 H (0.0-0.8) K/uL Eos # (Auto) 0.0 (0.0-0.7) K/uL Baso # (Auto) 0.0 (0.0-0.1) K/uL INR 1.15 APTT 27.0 (18.6-31.3) SEC D-Dimer, Quantitative 1.54 H (0.0-0.50) mg/L FEU ABG pH (7.35-7.45) ABG pCO2 (35-45) mmHG ABG pO2 (80-105) mmHG ABG HCO3 (22-26) mEq/L ABG Total CO2 (23-27) mmol/L ABG Base Excess (-2.0-3.0) Sodium (136-148) mmol/L Potassium (3.5-5.1) mmol/L Chloride (98-107) mmol/L Carbon Dioxide (21.0-32.0) mmol/L BUN (7.0-18.0) mg/dL Creatinine (0.8-1.3) mg/dL Est Cr Clr Drug Dosing mL/min Estimated GFR (MDRD) ml/min Glucose (74-106) mg/dL POC Glucose 245 H (70-99) mg/dL Lactic Acid (0.4-2.0) mmol/L Calcium (8.5-10.1) mg/dL Phosphorus (2.6-4.7) mg/dL Magnesium (1.8-2.4) mg/dL Total Bilirubin (0.2-1.0) mg/dL AST (15-37) IU/L ALT (14-63) IU/L Alkaline Phosphatase (46-116) U/L Troponin I (0.000-0.056) ng/mL C-Reactive Protein (0.00-0.90) mg/dL Total Protein (6.4-8.2) g/dL Albumin (3.4-5.0) g/dL Globulin (2.6-4.0) g/dL Albumin/Globulin Ratio (0.9-1.6) Lipase (73-393) U/L TSH, Ultra Sensitive (0.36-3.74) uIU/mL Urine Color Urine Appearance Urine pH (5.0-8.0) Ur Specific Barker (1.001-1.035) Urine Protein (NEGATIVE) mg/dL Urine Glucose (UA) (NEGATIVE) mg/dL Urine Ketones (NEGATIVE) mg/dL Urine Occult Blood (NEGATIVE) Urine Nitrite (NEGATIVE) Urine Bilirubin (NEGATIVE) Urine Urobilinogen (<2.0) EU/dL Ur Leukocyte Esterase (NEGATIVE) Urine RBC (0-2/HPF) Urine WBC (0-5/HPF) Ur Epithelial Cells (NONE-FEW) Urine Bacteria (NEGATIVE) Urine Mucus (NONE-MOD) Urine Opiates Screen (NEGATIVE) Ur Oxycodone Screen (NEGATIVE) Urine Methadone Screen (NEGATIVE) Ur Barbiturates Screen (NEGATIVE) Ur Phencyclidine Scrn (NEGATIVE) Ur Amphetamine Screen (NEGATIVE) U Methamphetamines Scrn (NEGATIVE) U Benzodiazepines Scrn (NEGATIVE) U Cocaine Metab Screen (NEGATIVE) U Marijuana (THC) Screen (NEGATIVE) Ethyl Alcohol mg/dL Influenza Type A RNA (NEGATIVE) RSV RNA (INAAT) (NEGATIVE) Influenza Type B RNA (NEGATIVE) SARS-CoV-2 RNA (MARCUS) (NEGATIVE) 10/16/21 10/16/21 10/16/21 Range/Units 00:15 00:15 00:26 WBC (4.0-11.0) K/uL RBC (4.50-5.90) M/uL Hgb (13.0-17.0) g/dL Hct (38.0-50.0) % MCV (80.0-98.0) fL MCH (27.0-32.0) pg MCHC (31.0-37.0) g/dL RDW Std Deviation (28.0-62.0) fl RDW Coeff of Dennis (11.0-15.0) % Plt Count (150-400) K/uL MPV (7.40-12.00) fL Neut % (Auto) (48.0-80.0) % Lymph % (Auto) (16.0-40.0) % [place] % (Auto) (0.0-15.0) % Eos % (Auto) (0.0-7.0) % Baso % (Auto) (0.0-1.5) % Neut # (Auto) (1.4-5.7) K/uL Lymph # (Auto) (0.6-2.4) K/uL [place] # (Auto) (0.0-0.8) K/uL Eos # (Auto) (0.0-0.7) K/uL Baso # (Auto) (0.0-0.1) K/uL INR APTT (18.6-31.3) SEC D-Dimer, Quantitative (0.0-0.50) mg/L FEU ABG pH (7.35-7.45) ABG pCO2 (35-45) mmHG ABG pO2 (80-105) mmHG ABG HCO3 (22-26) mEq/L ABG Total CO2 (23-27) mmol/L ABG Base Excess (-2.0-3.0) Sodium 135 L (136-148) mmol/L Potassium 3.7 (3.5-5.1) mmol/L Chloride 97 L (98-107) mmol/L Carbon Dioxide 27.8 (21.0-32.0) mmol/L BUN 20 H (7.0-18.0) mg/dL Creatinine 1.6 H (0.8-1.3) mg/dL Est Cr Clr Drug Dosing 54.94 mL/min Estimated GFR (MDRD) 43.9 ml/min Glucose 279 H (74-106) mg/dL POC Glucose (70-99) mg/dL Lactic Acid 2.5 H* (0.4-2.0) mmol/L Calcium 8.4 L (8.5-10.1) mg/dL Phosphorus 4.3 (2.6-4.7) mg/dL Magnesium 2.0 (1.8-2.4) mg/dL Total Bilirubin 0.7 (0.2-1.0) mg/dL AST 47 H (15-37) IU/L ALT 28 (14-63) IU/L Alkaline Phosphatase 65 (46-116) U/L Troponin I < 0.050 (0.000-0.056) ng/mL C-Reactive Protein 3.30 H (0.00-0.90) mg/dL Total Protein 7.2 (6.4-8.2) g/dL Albumin 3.3 L (3.4-5.0) g/dL Globulin 3.9 (2.6-4.0) g/dL Albumin/Globulin Ratio 0.9 (0.9-1.6) Lipase 52 L (73-393) U/L TSH, Ultra Sensitive 3.13 (0.36-3.74) uIU/mL Urine Color Urine Appearance Urine pH (5.0-8.0) Ur Specific Barker (1.001-1.035) Urine Protein (NEGATIVE) mg/dL Urine Glucose (UA) (NEGATIVE) mg/dL Urine Ketones (NEGATIVE) mg/dL Urine Occult Blood (NEGATIVE) Urine Nitrite (NEGATIVE) Urine Bilirubin (NEGATIVE) Urine Urobilinogen (<2.0) EU/dL Ur Leukocyte Esterase (NEGATIVE) Urine RBC (0-2/HPF) Urine WBC (0-5/HPF) Ur Epithelial Cells (NONE-FEW) Urine Bacteria (NEGATIVE) Urine Mucus (NONE-MOD) Urine Opiates Screen (NEGATIVE) Ur Oxycodone Screen (NEGATIVE) Urine Methadone Screen (NEGATIVE) Ur Barbiturates Screen (NEGATIVE) Ur Phencyclidine Scrn (NEGATIVE) Ur Amphetamine Screen (NEGATIVE) U Methamphetamines Scrn (NEGATIVE) U Benzodiazepines Scrn (NEGATIVE) U Cocaine Metab Screen (NEGATIVE) U Marijuana (THC) Screen (NEGATIVE) Ethyl Alcohol < 3.0 mg/dL Influenza Type A RNA NEGATIVE (NEGATIVE) RSV RNA (INAAT) NEGATIVE (NEGATIVE) Influenza Type B RNA NEGATIVE (NEGATIVE) SARS-CoV-2 RNA (MARCUS) POSITIVE H (NEGATIVE) 10/16/21 10/16/21 10/16/21 Range/Units 01:00 01:00 01:05 WBC (4.0-11.0) K/uL RBC (4.50-5.90) M/uL Hgb (13.0-17.0) g/dL Hct (38.0-50.0) % MCV (80.0-98.0) fL MCH (27.0-32.0) pg MCHC (31.0-37.0) g/dL RDW Std Deviation (28.0-62.0) fl RDW Coeff of Dennis (11.0-15.0) % Plt Count (150-400) K/uL MPV (7.40-12.00) fL Neut % (Auto) (48.0-80.0) % Lymph % (Auto) (16.0-40.0) % [place] % (Auto) (0.0-15.0) % Eos % (Auto) (0.0-7.0) % Baso % (Auto) (0.0-1.5) % Neut # (Auto) (1.4-5.7) K/uL Lymph # (Auto) (0.6-2.4) K/uL [place] # (Auto) (0.0-0.8) K/uL Eos # (Auto) (0.0-0.7) K/uL Baso # (Auto) (0.0-0.1) K/uL INR APTT (18.6-31.3) SEC D-Dimer, Quantitative (0.0-0.50) mg/L FEU ABG pH 7.32 L (7.35-7.45) ABG pCO2 43 (35-45) mmHG ABG pO2 128 H (80-105) mmHG ABG HCO3 22 (22-26) mEq/L ABG Total CO2 19.8 L (23-27) mmol/L ABG Base Excess -4.0 L (-2.0-3.0) Sodium (136-148) mmol/L Potassium (3.5-5.1) mmol/L Chloride (98-107) mmol/L Carbon Dioxide (21.0-32.0) mmol/L BUN (7.0-18.0) mg/dL Creatinine (0.8-1.3) mg/dL Est Cr Clr Drug Dosing mL/min Estimated GFR (MDRD) ml/min Glucose (74-106) mg/dL POC Glucose (70-99) mg/dL Lactic Acid (0.4-2.0) mmol/L Calcium (8.5-10.1) mg/dL Phosphorus (2.6-4.7) mg/dL Magnesium (1.8-2.4) mg/dL Total Bilirubin (0.2-1.0) mg/dL AST (15-37) IU/L ALT (14-63) IU/L Alkaline Phosphatase (46-116) U/L Troponin I (0.000-0.056) ng/mL C-Reactive Protein (0.00-0.90) mg/dL Total Protein (6.4-8.2) g/dL Albumin (3.4-5.0) g/dL Globulin (2.6-4.0) g/dL Albumin/Globulin Ratio (0.9-1.6) Lipase (73-393) U/L TSH, Ultra Sensitive (0.36-3.74) uIU/mL Urine Color DARK YELLOW Urine Appearance SLT CLOUDY Urine pH 6.0 (5.0-8.0) Ur Specific Barker >= 1.030 (1.001-1.035) Urine Protein >=300 H (NEGATIVE) mg/dL Urine Glucose (UA) 250 H (NEGATIVE) mg/dL Urine Ketones NEGATIVE (NEGATIVE) mg/dL Urine Occult Blood MODERATE H (NEGATIVE) Urine Nitrite NEGATIVE (NEGATIVE) Urine Bilirubin SMALL H (NEGATIVE) Urine Urobilinogen 4.0 H (<2.0) EU/dL Ur Leukocyte Esterase NEGATIVE (NEGATIVE) Urine RBC 4-7 (0-2/HPF) Urine WBC 0-2 (0-5/HPF) Ur Epithelial Cells FEW (NONE-FEW) Urine Bacteria 1+ H (NEGATIVE) Urine Mucus LIGHT (NONE-MOD) Urine Opiates Screen POSITIVE (NEGATIVE) Ur Oxycodone Screen NEGATIVE (NEGATIVE) Urine Methadone Screen NEGATIVE (NEGATIVE) Ur Barbiturates Screen NEGATIVE (NEGATIVE) Ur Phencyclidine Scrn NEGATIVE (NEGATIVE) Ur Amphetamine Screen NEGATIVE (NEGATIVE) U Methamphetamines Scrn POSITIVE (NEGATIVE) U Benzodiazepines Scrn NEGATIVE (NEGATIVE) U Cocaine Metab Screen NEGATIVE (NEGATIVE) U Marijuana (THC) Screen POSITIVE (NEGATIVE) Ethyl Alcohol mg/dL Influenza Type A RNA (NEGATIVE) RSV RNA (INAAT) (NEGATIVE) Influenza Type B RNA (NEGATIVE) SARS-CoV-2 RNA (MARCUS) (NEGATIVE) 10/16/21 10/16/21 10/16/21 Range/Units 03:30 03:40 04:50 WBC (4.0-11.0) K/uL RBC (4.50-5.90) M/uL Hgb (13.0-17.0) g/dL Hct (38.0-50.0) % MCV (80.0-98.0) fL MCH (27.0-32.0) pg MCHC (31.0-37.0) g/dL RDW Std Deviation (28.0-62.0) fl RDW Coeff of Dennis (11.0-15.0) % Plt Count (150-400) K/uL MPV (7.40-12.00) fL Neut % (Auto) (48.0-80.0) % Lymph % (Auto) (16.0-40.0) % [place]ulloch % (Auto) (0.0-15.0) % Eos % (Auto) (0.0-7.0) % Baso % (Auto) (0.0-1.5) % Neut # (Auto) (1.4-5.7) K/uL Lymph # (Auto) (0.6-2.4) K/uL [place] # (Auto) (0.0-0.8) K/uL Eos # (Auto) (0.0-0.7) K/uL Baso # (Auto) (0.0-0.1) K/uL INR APTT (18.6-31.3) SEC D-Dimer, Quantitative (0.0-0.50) mg/L FEU ABG pH 7.37 (7.35-7.45) ABG pCO2 37 (35-45) mmHG ABG pO2 127 H (80-105) mmHG ABG HCO3 21 L (22-26) mEq/L ABG Total CO2 18.8 L (23-27) mmol/L ABG Base Excess -3.6 L (-2.0-3.0) Sodium 135 L (136-148) mmol/L Potassium 4.2 (3.5-5.1) mmol/L Chloride 101 (98-107) mmol/L Carbon Dioxide 24.3 (21.0-32.0) mmol/L BUN 18 (7.0-18.0) mg/dL Creatinine 1.1 (0.8-1.3) mg/dL Est Cr Clr Drug Dosing 79.92 mL/min Estimated GFR (MDRD) > 60.0 ml/min Glucose 246 H (74-106) mg/dL POC Glucose (70-99) mg/dL Lactic Acid 1.3 (0.4-2.0) mmol/L Calcium 7.3 L (8.5-10.1) mg/dL Phosphorus (2.6-4.7) mg/dL Magnesium (1.8-2.4) mg/dL Total Bilirubin (0.2-1.0) mg/dL AST (15-37) IU/L ALT (14-63) IU/L Alkaline Phosphatase (46-116) U/L Troponin I < 0.050 (0.000-0.056) ng/mL C-Reactive Protein (0.00-0.90) mg/dL Total Protein (6.4-8.2) g/dL Albumin (3.4-5.0) g/dL Globulin (2.6-4.0) g/dL Albumin/Globulin Ratio (0.9-1.6) Lipase (73-393) U/L TSH, Ultra Sensitive (0.36-3.74) uIU/mL Urine Color Urine Appearance Urine pH (5.0-8.0) Ur Specific Barker (1.001-1.035) Urine Protein (NEGATIVE) mg/dL Urine Glucose (UA) (NEGATIVE) mg/dL Urine Ketones (NEGATIVE) mg/dL Urine Occult Blood (NEGATIVE) Urine Nitrite (NEGATIVE) Urine Bilirubin (NEGATIVE) Urine Urobilinogen (<2.0) EU/dL Ur Leukocyte Esterase (NEGATIVE) Urine RBC (0-2/HPF) Urine WBC (0-5/HPF) Ur Epithelial Cells (NONE-FEW) Urine Bacteria (NEGATIVE) Urine Mucus (NONE-MOD) Urine Opiates Screen (NEGATIVE) Ur Oxycodone Screen (NEGATIVE) Urine Methadone Screen (NEGATIVE) Ur Barbiturates Screen (NEGATIVE) Ur Phencyclidine Scrn (NEGATIVE) Ur Amphetamine Screen (NEGATIVE) U Methamphetamines Scrn (NEGATIVE) U Benzodiazepines Scrn (NEGATIVE) U Cocaine Metab Screen (NEGATIVE) U Marijuana (THC) Screen (NEGATIVE) Ethyl Alcohol mg/dL Influenza Type A RNA (NEGATIVE) RSV RNA (INAAT) (NEGATIVE) Influenza Type B RNA (NEGATIVE) SARS-CoV-2 RNA (MARCUS) (NEGATIVE) Meds: Medications Generic Name Dose Route Start Last Admin Trade Name Freq PRN Reason Stop Dose Admin Fentanyl Citrate 2,500 mcg/ 250 mls @ 2.5 mls/hr 10/16/21 00:27 10/16/21 08:36 Premix IV 75 mcg/hr TITRATE PRN 7.5 mls/hr Sedation Titration Protocol 25 MCG/HR Norepinephrine Bitartrate 4 mg in 250 mls @ 7.5 mls/hr 10/16/21 01:30 10/16/21 08:18 Norepinephr-0.9% Nacl 4 Mg/250 IV 4 mcg/min TITRATE CHEKO 15 mls/hr Titration Protocol 2 MCG/MIN Vancomycin HCl 1.5 gm/ Premix 300 mls @ 200 mls/hr 10/16/21 15:00 IV Q12H CHEKO Midazolam HCl 50 mg/ Sodium 50 mls @ 0.5 mls/hr 10/16/21 08:45 10/16/21 08:56 Chloride IV 0.5 mg/hr TITRATE CHEKO 0.5 mls/hr Administration Protocol 0.5 MG/HR Norepinephrine Bitartrate 4 mg in 250 mls @ 7.5 mls/hr 10/16/21 08:45 10/16/21 08:54 Norepinephr-0.9% Nacl 4 Mg/250 IV 2 mcg/min TITRATE CHEKO 7.5 mls/hr Administration Protocol 2 MCG/MIN Vancomycin HCl 1 dose 10/16/21 09:00 10/16/21 09:25 Pharmacy To Dose - Vancomycin .XX Not Given DAILY CHEKO Discontinued Medications Generic Name Dose Route Start Last Admin Trade Name Freq PRN Reason Stop Dose Admin Dexamethasone 6 mg 10/16/21 01:43 10/16/21 01:54 Dexamethasone 10 Mg/Ml Sdv IVPUSH 10/16/21 01:44 6 mg ONETIME ONE Administration Fentanyl 50 mcg 10/16/21 00:29 10/16/21 00:55 Fentanyl 50 Mcg/Ml Sdv IVPUSH 10/16/21 00:30 50 mcg ONETIME ONE Administration Sodium Chloride 1,000 mls @ 999 mls/hr 10/16/21 00:26 10/16/21 00:59 Normal Saline IV 10/16/21 01:26 999 mls/hr .Bolus ONE Administration Sodium Chloride 1,000 mls @ 999 mls/hr 10/16/21 00:28 10/16/21 01:00 Normal Saline IV 10/16/21 01:28 999 mls/hr .Bolus ONE Administration Sodium Chloride 1,000 mls @ 999 mls/hr 10/16/21 00:28 10/16/21 01:29 Normal Saline IV 10/16/21 01:28 999 mls/hr .Bolus ONE Administration Cefepime HCl 2 gm/ Premix 50 mls @ 100 mls/hr 10/16/21 00:29 10/16/21 01:12 IV 10/16/21 00:58 100 mls/hr ONETIME ONE Administration Fentanyl Citrate Confirm 10/16/21 00:44 10/16/21 01:07 Fentanyl 2500 Mcg In Ns 250 Ml (10 Mcg/Ml) Administered 10/16/21 00:45 Not Given Dose 250 mls @ as directed .ROUTE .STK-MED ONE Vancomycin HCl 2 gm/ Premix 400 mls @ 200 mls/hr 10/16/21 01:00 10/16/21 04:20 IV 10/16/21 02:59 200 mls/hr NOW ONE Administration Remdesivir 200 mg/ Sodium 250 mls @ 250 mls/hr 10/16/21 01:44 10/16/21 03:06 Chloride IV 10/16/21 01:45 250 mls/hr ONETIME ONE Administration Sodium Chloride 1,000 mls @ 100 mls/hr 10/16/21 02:38 10/16/21 03:47 Normal Saline IV 10/16/21 12:37 100 mls/hr .Bolus ONE Administration Cefepime HCl 2 gm/ Premix 50 mls @ 100 mls/hr 10/16/21 12:00 10/16/21 12:19 IV 10/16/21 12:29 100 mls/hr ONETIME ONE Administration Metoprolol Tartrate 5 mg/ 55 mls @ 100 mls/hr 10/16/21 12:23 10/16/21 12:40 Sodium Chloride IV 10/16/21 12:55 Not Given ONETIME ONE Iopamidol 75 ml 10/16/21 03:16 10/16/21 03:17 Iopamidol 755 Mg/Ml 500 Ml Multipack Bottle IVPUSH 10/16/21 03:17 75 ml ONETIME STA Administration Ketamine HCl Confirm 10/16/21 08:11 10/16/21 08:19 Ketamine 500 Mg/10 Ml Mdv Administered 10/16/21 08:12 Not Given Dose 500 mg .ROUTE .STK-MED ONE Ketamine HCl 50 mg 10/16/21 08:16 10/16/21 08:20 Ketamine 500 Mg/10 Ml Mdv IV 10/16/21 08:17 50 mg ONETIME ONE Administration Metoprolol Succinate 50 mg 10/16/21 12:23 10/16/21 12:41 Metoprolol Succinate 50 Mg Tab.Er PO 10/16/21 12:24 50 mg ONETIME ONE Administration Metoprolol Succinate Confirm 10/16/21 12:27 10/16/21 12:42 Metoprolol Succinate 50 Mg Tab.Er Administered 10/16/21 12:28 Not Given Dose 50 mg .ROUTE .STK-MED ONE Metoprolol Tartrate Confirm 10/16/21 12:35 Metoprolol Tartrate 5 Mg/5 Ml Sdv Administered 10/16/21 12:36 Dose 5 mg .ROUTE .STK-MED ONE Midazolam HCl 2 mg 10/16/21 08:33 10/16/21 08:36 Midazolam 1 Mg/Ml 2 Ml Sdv IVPUSH 10/16/21 08:34 2 mg ONETIME ONE Administration Midazolam HCl Confirm 10/16/21 08:34 10/16/21 08:44 Midazolam 1 Mg/Ml 2 Ml Sdv Administered 10/16/21 08:35 Not Given Dose 2 mg .ROUTE .STK-MED ONE - Re-Assessments/Exams Free Text/Narrative Re-Assessment/Exam: 10/16/21 08:33 Patient has [facility] by ICU doctor Dr. Pascal. Patient started to wake up and trigger the vent he was given IV push of ketamine x250 mg. Patient still awake patient was placed on a Versed drip 10/16/21 12:19 Patient while in the Versed and fentanyl drip continue to wake up and try to pull the tube out. The lung was deflated and the patient was assisted with taken to go. He is now awake talking maintaining his normal airway satting 99% on nonrebreather we will continue to transition him to a nasal cannula. We will now called the flight crew likely admit patient here to the hospital. Departure - Departure Time of Disposition: 08:34 Sepsis Event Note (ED) - Focused Exam Vital Signs: Vital Signs Temp Temp Pulse Pulse Resp BP BP 10/16/21 12:41 116 H 132/89 10/16/21 11:00 100 16 98/72 10/16/21 09:05 97.9 F 10/16/21 08:35 116 H 16 118/55 L 10/16/21 07:15 102 H 16 106/72 10/16/21 01:00 103.2 F H 193 H 14 81/58 L Pulse Ox 10/16/21 12:41 10/16/21 11:00 98 10/16/21 09:05 10/16/21 08:35 100 10/16/21 07:15 100 10/16/21 01:00 97 - My Orders Last 24 Hours: My Active Orders 10/16/21 08:45 Midazolam [Versed 5 MG/ML] 50 mg Sodium Chloride 0.9% [Normal Saline] 40 ml IV TITRATE Norepinephrine Bit/0.9 % NaCl [Norepinephr-0.9% NaCl 4 mg/250] 4 mg in 250 ml IV TITRATE 10/16/21 12:56 Admission Status [Patient Status] [ADT] Stat - Assessment/Plan Last 24 Hours: My Active Orders 10/16/21 08:45 Midazolam [Versed 5 MG/ML] 50 mg Sodium Chloride 0.9% [Normal Saline] 40 ml IV TITRATE Norepinephrine Bit/0.9 % NaCl [Norepinephr-0.9% NaCl 4 mg/250] 4 mg in 250 ml IV TITRATE 10/16/21 12:56 Admission Status [Patient Status] [ADT] Stat
[2021-10-16] MEDS ORDERED: VANCOmycin 2 GM/400 ML 2 GM in Premix Bag 1 BAG IV ONE (01:00)
--- NOTE | 2021-10-16 01:00 | CR ---
Indication: Unresponsive Technique: Portable supine AP view of the chest Comparison: One-view chest 08/26/2021 Findings/Impression: Endotracheal tube tip resides approximately 1 cm above the jamarcus. Retracting by 1-2 cm is recommended. Left IJ central venous catheter terminates in the midline, likely at the junction of the brachiocephalic vein and SVC. Normal cardiomediastinal silhouette. No significant pulmonary opacity. Unremarkable thoracic osseous structures. Defibrillator pad overlies the right chest wall. Dictated by Juan Seals MD @ 10/16/2021 12:57:53 AM (Electronically Signed)
[2021-10-16 01:13] LABS: BLOOD UREA NITROGEN,BUN 20 mg/dL (7.0-18.0); CARBON DIOXIDE,CO2 27.8 mmol/L (21.0-32.0); CHLORIDE,CL 97 mmol/L (98-107); GLUCOSE RANDOM 279 mg/dL (74-106); LIPASE 52 U/L (73-393); POTASSIUM,K 3.7 mmol/L (3.5-5.1); SODIUM,NA 135 mmol/L (136-148)
[2021-10-16 01:33] LABS: CORONAVIRUS COVID-19 NAA POSITIVE (NEGATIVE); INFLUENZA A NAA NEGATIVE (NEGATIVE); INFLUENZA B NAA NEGATIVE (NEGATIVE); RESPIRATORY SYNCYTIAL VIR NAA NEGATIVE (NEGATIVE)
[2021-10-16] MEDS ORDERED: Dexamethasone 10 MG/ML SDV IVPUSH ONE (01:43)
[2021-10-16] MEDS ORDERED: REMDESIVIR 200 MG in Sodium Chloride 0.9% 250 ML IV ONE (01:44)
[2021-10-16] MEDS ORDERED: Iopamidol 755 MG/ML 500 ML Multipack Bottle IVPUSH STA (03:16)
--- NOTE | 2021-10-16 03:25 | CT ---
Indication: Unresponsive Technique: Nonenhanced axial CT imaging through the head. Sagittal and coronal reconstructions are provided. Comparison: None Findings: There is no evidence of intracranial hemorrhage or cerebral edema. There is a moderate-sized area of encephalomalacia in the lateral right frontal lobe, consistent with old infarct. The ventricles are normal in size. The basal cisterns are patent. The calvarium is intact. The mastoid air cells are clear. Note is made of mild paranasal sinus mucosal thickening without air-fluid levels. Impression: No acute intracranial process. 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 Please note that all CT scans at this facility use dose modulation, iterative reconstruction, and/or weight-based dosing when appropriate to reduce radiation dose to as low as reasonably achievable. Dictated by Juan Seals MD @ 10/16/2021 3:23:07 AM (Electronically Signed)
--- NOTE | 2021-10-16 03:29 | CT ---
Indication: Unresponsive, possible fall Technique: Nonenhanced axial CT imaging through the cervical spine. Sagittal and coronal reconstructions are provided. Comparison: None Findings: The cervical vertebral bodies are normal in height. There is no evidence of acute fracture. There is no prevertebral edema. The atlantoaxial and atlantooccipital relationships are maintained. Spinal alignment is normal. ACDF hardware at C5-6 and C6-7 appears intact. Mature osseous fusion is noted at both levels. Multilevel degenerative changes are present. There is severe right neural foraminal stenosis at C2-3. At C3-4, there is mild spinal stenosis with severe right and moderate left neural foraminal stenosis. Mild bilateral neural foraminal stenosis is also noted on C6-7. Impression: 1. No acute fracture or traumatic malalignment. 2. Degenerative and postsurgical changes, as above. Please note that all CT scans at this facility use dose modulation, iterative reconstruction, and/or weight-based dosing when appropriate to reduce radiation dose to as low as reasonably achievable. Dictated by Juan Seals MD @ 10/16/2021 3:27:52 AM (Electronically Signed)
--- NOTE | 2021-10-16 03:46 | CT ---
INDICATION: Unresponsive TECHNIQUE: Contrast enhanced axial CT imaging through the chest, optimized for assessment of the pulmonary arterial tree. 75 mL Isovue 370 contrast agent was administered intravenously. Sagittal and coronal reconstructions are provided. COMPARISON: CTA chest 08/16/2021 FINDINGS: There is adequate opacification of the pulmonary arterial tree without evidence of thromboembolism. The central pulmonary arteries are mildly enlarged, similar to prior. The heart is borderline enlarged. There is no pericardial effusion. The thoracic aorta is normal in caliber. There is mild mediastinal and bilateral hilar lymphadenopathy, presumably reactive. Moderate atelectasis is noted in the dependent lungs bilaterally. There are changes of paraseptal pulmonary emphysema with subpleural bullous changes most pronounced in the posterior right lung. There is no pleural effusion or pneumothorax. Tip of the endotracheal tube is approximately 1 cm from the jamarcus. Two subcutaneous nodular densities measuring approximately 2 cm each are noted in the medial left upper back at the T2-3 vertebral level, similar. The thoracic osseous structures are unremarkable. Left IJ central venous line terminates in the distal brachiocephalic vein. IMPRESSION: 1. No evidence of pulmonary embolism. 2. Moderate atelectasis in the dependent lungs bilaterally. 3. Endotracheal tube tip 1 cm above the jamarcus. Consider retracting by 1-2 cm. Please note that all CT scans at this facility use dose modulation, iterative reconstruction, and/or weight-based dosing when appropriate to reduce radiation dose to as low as reasonably achievable. Dictated by Juan Seals MD @ 10/16/2021 3:44:06 AM (Electronically Signed)
--- NOTE | 2021-10-16 03:48 | CR ---
Indication: NG tube placement Technique: Portable supine AP view of the chest at 3:26 a.m. Comparison: One-view chest 10/16/2021 at 12:41 a.m. Findings/Impression: Distal end of gastric tube loops in the distal stomach. Endotracheal tube tip is approximately 2.7 cm above the jamarcus. Left IJ central venous catheter tip resides in the distal brachiocephalic vein. Stable cardiomediastinal silhouette. No evidence of pulmonary consolidation or focal infiltrate. Dictated by Juan Seals MD @ 10/16/2021 3:46:29 AM (Electronically Signed)
--- NOTE | 2021-10-16 04:00 | CT ---
Indication: Unresponsive Technique: Contrast enhanced axial CT imaging through the abdomen and pelvis. 75 mL Isovue 370 contrast agent was administered intravenously. Sagittal and coronal reconstructions are provided. Comparison: CT abdomen pelvis with contrast 08/16/2021 Findings: No abnormalities are demonstrated relating to the liver, gallbladder, spleen, pancreas, and adrenal glands there are numerous renal cortical cysts bilaterally, largest in the left upper pole measuring up to 9 cm. The portal vein is patent. There is extensive atherosclerotic calcification of the abdominal aorta with infrarenal ectasia up to 2.8 cm. A few nonspecific prominent lymph nodes are noted in the christina hepatis. No lymphadenopathy appreciated elsewhere in the abdomen or pelvis. Flor catheter is noted in the urinary bladder. The stomach and duodenum are unremarkable. There is no small bowel wall thickening or abnormal distention. The appendix is not visualized. There is no colonic wall thickening or mesenteric edema. Multilevel degenerative changes are noted in the lumbar spine. There is evidence of prior laminectomy at L4-5, with mature posterior fusion construct at L4-5 and L5-S1. Impression: 1. No acute process demonstrated in the abdomen and pelvis. 2. Stable chronic and postsurgical findings, as above. Please note that all CT scans at this facility use dose modulation, iterative reconstruction, and/or weight-based dosing when appropriate to reduce radiation dose to as low as reasonably achievable. Dictated by Juan Seals MD @ 10/16/2021 3:58:48 AM (Electronically Signed)
[2021-10-16 05:20] LABS: BLOOD UREA NITROGEN,BUN 18 mg/dL (7.0-18.0); CARBON DIOXIDE,CO2 24.3 mmol/L (21.0-32.0); CHLORIDE,CL 101 mmol/L (98-107); GLUCOSE RANDOM 246 mg/dL (74-106); POTASSIUM,K 4.2 mmol/L (3.5-5.1); SODIUM,NA 135 mmol/L (136-148)
[2021-10-16] MEDS ORDERED: Ketamine 500 mg/10 ML MDV ONE (08:11)
[2021-10-16] MEDS ORDERED: Ketamine HCL/NACL, ISO-OSM 50 MG/5 ML Syringe IJ ONE (08:15)
[2021-10-16] MEDS ORDERED: Ketamine 500 mg/10 ML MDV IV ONE (08:16)
[2021-10-16] MEDS ORDERED: Ketamine HCL/NACL, ISO-OSM 50 MG/5 ML Syringe IJ STA (08:23)
[2021-10-16] MEDS ORDERED: Midazolam 1 MG/ML 2 ML SDV IVPUSH ONE (08:33)
[2021-10-16] MEDS ORDERED: Midazolam 1 MG/ML 2 ML SDV ONE (08:34)
[2021-10-16] MEDS ORDERED: Midazolam 50 MG in Sodium Chloride 0.9% 40 ML IV SCH (08:45)
[2021-10-16] MEDS ORDERED: Metoprolol Succinate 50 MG Tab.ER PO ONE (12:23)
[2021-10-16] MEDS ORDERED: Metoprolol Tartrate 5 MG in Sodium Chloride 0.9% 50 ML IV ONE (12:23)
[2021-10-16] MEDS ORDERED: Metoprolol Succinate 50 MG Tab.ER ONE (12:27)
[2021-10-16] MEDS ORDERED: Metoprolol Tartrate 5 MG/5 ML SDV ONE (12:35)
[2021-10-16] MEDS ORDERED: Ketorolac 30 MG/ML SDV IVPUSH ONE (14:16)
--- NOTE | 2021-10-16 15:21 | PCM.HP.2 ---
H&P History of Present Illness - General Date of Service: 10/16/21 Admit Problem/Dx: Admission Diagnosis/Problem Admission Diagnosis/Problem Fever, unspecified/cardiac/resp arrest. Source of Information: Patient, EMS, Provider History Limitations: Reports: Altered Mental Status - History of Present Illness Initial Comments - Free Text/Narative: 61 year old male admitted after found unresp. with agonal resp. not responding top narcan and intubated on scene. l reported found unresponsive by relative after being seen 20 minutes prev. 4 day hx from patient of [place] and increased back and neck pain a nd general malaise. nauseated x one . no chest pain but a little sob . layed down after taking norco for pain with nyquil. in e.r extensive eval for possible ami,ischemia cva and or infection,p.e. negative. patient woke up and was extubated as abgs were doing very well see reports. since then still feels chilled and achey in back and all over. oriented x 4 and no weakness and denies any chest pain or syncopal sensation . no hx of recent syncope or near syncope and no symptoms of increased palp although rate high and b.p flucuating. prev hx of cva x 3 on brintilla and elaquis. hx of cad s/p stents with need for another he states. hx of dm 2. hx of copd and smoking still . hx of chronic renal stones . hx of mjh use ,denies any hx of mneth ,cocaine or other illicit drug use. takes norco for chronic back pain and failed neck and back surgery. uses 2-3 x day .no prev overdose and does not drink anymore for 20 years. no surgeries:but hx of complete bowel obstruction. covid vaccinated except no booster . flu vaccinated. seperated and chronic anxiety /depression. checks b.s. no recent changes in meds . covid screen pos. Onset of Symptoms: Reports: Sudden Duration of Symptoms: Reports: Day(s): (4 days chills ) Location: Reports: Neck, Back, Lower Extremity, Left, Lower Extremity, Right Quality: Reports: Pressure Improves with: Reports: None Worsens with: Reports: None Associated Symptoms: Reports: Confusion, Fever/Chills, Headaches, Loss of Appetite, Malaise, Weakness. Denies: No Other Symptoms - Related Data Allergies/Adverse Reactions: Allergies Allergy/AdvReac Type Severity Reaction Status Date / Time bee venom protein (honey bee) Allergy Anaphylactic Verified 10/16/21 15:09 Shock Home Medications: Home Meds Apixaban [Eliquis] 5 mg PO BID 04/20/19 [History] DULoxetine HCl [Duloxetine HCl] 1 tab PO DAILY 04/20/19 [History] atorvaSTATin [Lipitor] 40 mg PO BEDTIME 08/07/19 [History] Ranitidine [Zantac] 150 mg PO BID PRN MDD Acid Bingo Checker 09/05/19 [History] Amiodarone [Cordarone] 200 mg PO DAILY 09/29/19 [History] Insulin Glargine,Hum.Rec.Anlog [Basaglar Kwikpen U-100] 16 unit SQ DAILY 09/29/19 [History] Hydrocodone/Acetaminophen [HYDROcodone-Acetaminophen 10-325 MG] 1 tab PO Q4H PRN 08/16/21 [History] Metoprolol Succinate 75 mg PO BEDTIME 08/16/21 [History] QUEtiapine [SEROquel] 200 mg PO BEDTIME 08/16/21 [History] Ticagrelor [Brilinta] 90 mg PO BID 08/16/21 [History] Venlafaxine HCl [Venlafaxine ER] 75 mg PO DAILY 08/16/21 [History] lisinopriL [Lisinopril] 5 mg PO DAILY 08/16/21 [History] Alum [place]/Mag [place]/Simeth XS [Mag-Al Plus XS] 30 ml PO Q6H #60 cup 08/17/21 [Rx] Omeprazole 20 mg PO ACBREAKFAST #30 cap.sr 08/17/21 [Rx] Pregabalin [Lyrica] 200 mg PO TID 08/26/21 [History] metFORMIN HCl [Metformin HCl ER] 500 mg PO DAILY 08/26/21 [History] traZODone 50 mg PO BEDTIME 08/26/21 [History] Past Medical History HEENT History: Reports: None Other HEENT History: upper and lower dentures Cardiovascular History: Reports: Arrhythmia, Blood Clots/VTE/DVT, CAD, Hy pertension Other Cardiovascular History: Afib w/ rvr Respiratory History: Reports: COPD Gastrointestinal History: Reports: Bowel Obstruction, GERD, Other (See Below) Other Gastrointestinal History: Intestinal rupture Genitourinary History: Reports: None Musculoskeletal History: Reports: Back Pain, Chronic, Fracture Neurological History: Reports: CVA Other Neuro History: 3 strokes in the last 1.5 years Psychiatric History: Reports: Anxiety, Depression Endocrine/Metabolic History: Reports: Diabetes, Type II Hematologic History: Reports: None Immunologic History: Reports: None Oncologic (Cancer) History: Reports: None Dermatologic History: Reports: None - Infectious Disease History Infectious Disease History: Reports: Chicken Pox - Past Surgical History Head Surgeries/Procedures: Reports: None HEENT Surgical History: Reports: None Cardiovascular Surgical History: Reports: Cardiac Ablation, Other (See Below) Other Cardiovascular Surgeries/Procedures: Cardioversion ablation Respiratory Surgical History: Reports: None GI Surgical History: Reports: Colonoscopy, Small Bowel Male Surgical History: Reports: None Endocrine Surgical History: Reports: None Neurological Surgical History: Reports: None Musculoskeletal Surgical History: Reports: Other (See Below) Other Musculoskeletal Surgeries/Procedures:: 6 back surgeries, 2 neck surgeries, titanium plate in neck Oncologic Surgical History: Reports: None Dermatological Surgical History: Reports: None Social & Family History - Family History Family Medical History: No Pertinent Family History Musculoskeletal: Reports: Gout Oncologic: Reports: Other (See Below) Other Oncologic Family History: patient states mother had cancer, unsure of what kind. - Tobacco Use Tobacco Use Status *Q: Current Every Day Tobacco User - Caffeine Use Caffeine Use: Reports: Coffee, Soda Other Caffeine Use: 1-2 a day Caffeine Use Comment: occasional/2 cups of coffee per week - Recreational Drug Use Recreational Drug Use: Yes Drug Use in Last 12 Months: Yes Recreational Drug Type: Reports: Methamphetamine, Oxycodone - Living Situation & Occupation Living situation: Reports: with Family Occupation: Retired H&P Review of Systems - Review of Systems: Review Of Systems: See Below General: Reports: Chills, Malaise, Weakness Pulmonary: Reports: Shortness of Breath Gastrointestinal: Reports: No Symptoms Genitourinary: Reports: No Symptoms Musculoskeletal: Reports: Neck Pain, Back Pain Skin: Reports: No Symptoms Psychiatric: Reports: No Symptoms Neurological: Reports: No Symptoms, Syncope Exam - Exam Exam: See Below - Vital Signs Vital Signs: Last Vital Signs Temp 35.9 C L 10/16/21 15:07 Pulse 86 10/16/21 15:07 Resp 17 10/16/21 15:07 BP 134/62 10/16/21 15:07 Pulse Ox 96 10/16/21 15:07 Weight: 100 kg - Exam Quality Assessment: Supplemental Oxygen General: Alert, Oriented, 4 HEENT: PERRLA, Hearing Intact, Mucosa Moist & Tony, Nares Patent, Normal Nasal Septum, Posterior Pharynx Clear, Conjunctiva Clear, EOMI, EACs Clear, TMs Clear Neck: Supple, Trachea Midline, 2 Lungs: Clear to Auscultation, Normal Respiratory Effort Cardiovascular: Regular Rate, Regular Rhythm GI/Abdominal Exam: Normal Bowel Sounds, Soft, Non-Tender, No Organomegaly, No Distention, No Abnormal Bruit, No Mass, Pelvis Stable (Male) Exam: No Hernia, Normal Inspection, Normal Prostate, Circumcised Rectal (Males) Exam: Normal Exam, Normal Rectal Tone, Prostate Normal Back Exam: Normal Inspection, Full Range of Motion, NT Extremities: Normal Inspection, Normal Range of Motion, Non-Tender, No Pedal Edema, Normal Capillary Refill Skin: Warm, Dry, Intact Neurological: Cranial Nerves Intact, Reflexes Equal Bilateral Neuro Extensive - Mental Status: Alert, Oriented x3, Normal Mood/Affect, Normal Cognition Neuro Extensive - Motor, Sensory, Reflexes: CN II-XII Intact, Normal Gait, Normal Reflexes Psychiatric: Alert, Normal Affect, Normal Mood - Patient Data Lab Results Last 24 hrs: Laboratory Results - last 24 hr 10/16/21 10/16/21 10/16/21 Range/Units 00:07 00:15 00:15 WBC 10.47 (4.0-11.0) K/uL RBC 5.07 (4.50-5.90) M/uL Hgb 15.6 (13.0-17.0) g/dL Hct 47.4 (38.0-50.0) % MCV 93.5 (80.0-98.0) fL MCH 30.8 (27.0-32.0) pg MCHC 32.9 (31.0-37.0) g/dL RDW Std Deviation 45.9 (28.0-62.0) fl RDW Coeff of Dennis 14 (11.0-15.0) % Plt Count 182 (150-400) K/uL MPV 11.10 (7.40-12.00) fL Neut % (Auto) 73.7 (48.0-80.0) % Lymph % (Auto) 17.1 (16.0-40.0) % Burnet % (Auto) 9.0 (0.0-15.0) % Eos % (Auto) 0.1 (0.0-7.0) % Baso % (Auto) 0.1 (0.0-1.5) % Neut # (Auto) 7.7 H (1.4-5.7) K/uL Lymph # (Auto) 1.8 (0.6-2.4) K/uL Burnet # (Auto) 0.9 H (0.0-0.8) K/uL Eos # (Auto) 0.0 (0.0-0.7) K/uL Baso # (Auto) 0.0 (0.0-0.1) K/uL INR 1.15 APTT 27.0 (18.6-31.3) SEC D-Dimer, Quantitative 1.54 H (0.0-0.50) mg/L FEU ABG pH (7.35-7.45) ABG pCO2 (35-45) mmHG ABG pO2 (80-105) mmHG ABG HCO3 (22-26) mEq/L ABG Total CO2 (23-27) mmol/L ABG Base Excess (-2.0-3.0) Sodium (136-148) mmol/L Potassium (3.5-5.1) mmol/L Chloride (98-107) mmol/L Carbon Dioxide (21.0-32.0) mmol/L BUN (7.0-18.0) mg/dL Creatinine (0.8-1.3) mg/dL Est Cr Clr Drug Dosing mL/min Estimated GFR (MDRD) ml/min Glucose (74-106) mg/dL POC Glucose 245 H (70-99) mg/dL Lactic Acid (0.4-2.0) mmol/L Calcium (8.5-10.1) mg/dL Phosphorus (2.6-4.7) mg/dL Magnesium (1.8-2.4) mg/dL Total Bilirubin (0.2-1.0) mg/dL AST (15-37) IU/L ALT (14-63) IU/L Alkaline Phosphatase (46-116) U/L Troponin I (0.000-0.056) ng/mL C-Reactive Protein (0.00-0.90) mg/dL Total Protein (6.4-8.2) g/dL Albumin (3.4-5.0) g/dL Globulin (2.6-4.0) g/dL Albumin/Globulin Ratio (0.9-1.6) Lipase (73-393) U/L TSH, Ultra Sensitive (0.36-3.74) uIU/mL Urine Color Urine Appearance Urine pH (5.0-8.0) Ur Specific [place] (1.001-1.035) Urine Protein (NEGATIVE) mg/dL Urine Glucose (UA) (NEGATIVE) mg/dL Urine Ketones (NEGATIVE) mg/dL Urine Occult Blood (NEGATIVE) Urine Nitrite (NEGATIVE) Urine Bilirubin (NEGATIVE) Urine Urobilinogen (<2.0) EU/dL Ur Leukocyte Esterase (NEGATIVE) Urine RBC (0-2/HPF) Urine WBC (0-5/HPF) Ur Epithelial Cells (NONE-FEW) Urine Bacteria (NEGATIVE) Urine Mucus (NONE-MOD) Urine Opiates Screen (NEGATIVE) Ur Oxycodone Screen (NEGATIVE) Urine Methadone Screen (NEGATIVE) Ur Barbiturates Screen (NEGATIVE) Ur Phencyclidine Scrn (NEGATIVE) Ur Amphetamine Screen (NEGATIVE) U Methamphetamines Scrn (NEGATIVE) U Benzodiazepines Scrn (NEGATIVE) U Cocaine Metab Screen (NEGATIVE) U Marijuana (THC) Screen (NEGATIVE) Ethyl Alcohol mg/dL Influenza Type A RNA (NEGATIVE) RSV RNA (INAAT) (NEGATIVE) Influenza Type B RNA (NEGATIVE) SARS-CoV-2 RNA (MARCUS) (NEGATIVE) 10/16/21 10/16/21 10/16/21 Range/Units 00:15 00:15 00:26 WBC (4.0-11.0) K/uL RBC (4.50-5.90) M/uL Hgb (13.0-17.0) g/dL Hct (38.0-50.0) % MCV (80.0-98.0) fL MCH (27.0-32.0) pg MCHC (31.0-37.0) g/dL RDW Std Deviation (28.0-62.0) fl RDW Coeff of Dennis (11.0-15.0) % Plt Count (150-400) K/uL MPV (7.40-12.00) fL Neut % (Auto) (48.0-80.0) % Lymph % (Auto) (16.0-40.0) % Burnet % (Auto) (0.0-15.0) % Eos % (Auto) (0.0-7.0) % Baso % (Auto) (0.0-1.5) % Neut # (Auto) (1.4-5.7) K/uL Lymph # (Auto) (0.6-2.4) K/uL [place] # (Auto) (0.0-0.8) K/uL Eos # (Auto) (0.0-0.7) K/uL Baso # (Auto) (0.0-0.1) K/uL INR APTT (18.6-31.3) SEC D-Dimer, Quantitative (0.0-0.50) mg/L FEU ABG pH (7.35-7.45) ABG pCO2 (35-45) mmHG ABG pO2 (80-105) mmHG ABG HCO3 (22-26) mEq/L ABG Total CO2 (23-27) mmol/L ABG Base Excess (-2.0-3.0) Sodium 135 L (136-148) mmol/L Potassium 3.7 (3.5-5.1) mmol/L Chloride 97 L (98-107) mmol/L Carbon Dioxide 27.8 (21.0-32.0) mmol/L BUN 20 H (7.0-18.0) mg/dL Creatinine 1.6 H (0.8-1.3) mg/dL Est Cr Clr Drug Dosing 54.94 mL/min Estimated GFR (MDRD) 43.9 ml/min Glucose 279 H (74-106) mg/dL POC Glucose (70-99) mg/dL Lactic Acid 2.5 H* (0.4-2.0) mmol/L Calcium 8.4 L (8.5-10.1) mg/dL Phosphorus 4.3 (2.6-4.7) mg/dL Magnesium 2.0 (1.8-2.4) mg/dL Total Bilirubin 0.7 (0.2-1.0) mg/dL AST 47 H (15-37) IU/L ALT 28 (14-63) IU/L Alkaline Phosphatase 65 (46-116) U/L Troponin I < 0.050 (0.000-0.056) ng/mL C-Reactive Protein 3.30 H (0.00-0.90) mg/dL Total Protein 7.2 (6.4-8.2) g/dL Albumin 3.3 L (3.4-5.0) g/dL Globulin 3.9 (2.6-4.0) g/dL Albumin/Globulin Ratio 0.9 (0.9-1.6) Lipase 52 L (73-393) U/L TSH, Ultra Sensitive 3.13 (0.36-3.74) uIU/mL Urine Color Urine Appearance Urine pH (5.0-8.0) Ur Specific [place] (1.001-1.035) Urine Protein (NEGATIVE) mg/dL Urine Glucose (UA) (NEGATIVE) mg/dL Urine Ketones (NEGATIVE) mg/dL Urine Occult Blood (NEGATIVE) Urine Nitrite (NEGATIVE) Urine Bilirubin (NEGATIVE) Urine Urobilinogen (<2.0) EU/dL Ur Leukocyte Esterase (NEGATIVE) Urine RBC (0-2/HPF) Urine WBC (0-5/HPF) Ur Epithelial Cells (NONE-FEW) Urine Bacteria (NEGATIVE) Urine Mucus (NONE-MOD) Urine Opiates Screen (NEGATIVE) Ur Oxycodone Screen (NEGATIVE) Urine Methadone Screen (NEGATIVE) Ur Barbiturates Screen (NEGATIVE) Ur Phencyclidine Scrn (NEGATIVE) Ur Amphetamine Screen (NEGATIVE) U Methamphetamines Scrn (NEGATIVE) U Benzodiazepines Scrn (NEGATIVE) U Cocaine Metab Screen (NEGATIVE) U Marijuana (THC) Screen (NEGATIVE) Ethyl Alcohol < 3.0 mg/dL Influenza Type A RNA NEGATIVE (NEGATIVE) RSV RNA (INAAT) NEGATIVE (NEGATIVE) Influenza Type B RNA NEGATIVE (NEGATIVE) SARS-CoV-2 RNA (MARCUS) POSITIVE H (NEGATIVE) 10/16/21 10/16/21 10/16/21 Range/Units 01:00 01:00 01:05 WBC (4.0-11.0) K/uL RBC (4.50-5.90) M/uL Hgb (13.0-17.0) g/dL Hct (38.0-50.0) % MCV (80.0-98.0) fL MCH (27.0-32.0) pg MCHC (31.0-37.0) g/dL RDW Std Deviation (28.0-62.0) fl RDW Coeff of Dennis (11.0-15.0) % Plt Count (150-400) K/uL MPV (7.40-12.00) fL Neut % (Auto) (48.0-80.0) % Lymph % (Auto) (16.0-40.0) % [place] % (Auto) (0.0-15.0) % Eos % (Auto) (0.0-7.0) % Baso % (Auto) (0.0-1.5) % Neut # (Auto) (1.4-5.7) K/uL Lymph # (Auto) (0.6-2.4) K/uL Burnet # (Auto) (0.0-0.8) K/uL Eos # (Auto) (0.0-0.7) K/uL Baso # (Auto) (0.0-0.1) K/uL INR APTT (18.6-31.3) SEC D-Dimer, Quantitative (0.0-0.50) mg/L FEU ABG pH 7.32 L (7.35-7.45) ABG pCO2 43 (35-45) mmHG ABG pO2 128 H (80-105) mmHG ABG HCO3 22 (22-26) mEq/L ABG Total CO2 19.8 L (23-27) mmol/L ABG Base Excess -4.0 L (-2.0-3.0) Sodium (136-148) mmol/L Potassium (3.5-5.1) mmol/L Chloride (98-107) mmol/L Carbon Dioxide (21.0-32.0) mmol/L BUN (7.0-18.0) mg/dL Creatinine (0.8-1.3) mg/dL Est Cr Clr Drug Dosing mL/min Estimated GFR (MDRD) ml/min Glucose (74-106) mg/dL POC Glucose (70-99) mg/dL Lactic Acid (0.4-2.0) mmol/L Calcium (8.5-10.1) mg/dL Phosphorus (2.6-4.7) mg/dL Magnesium (1.8-2.4) mg/dL Total Bilirubin (0.2-1.0) mg/dL AST (15-37) IU/L ALT (14-63) IU/L Alkaline Phosphatase (46-116) U/L Troponin I (0.000-0.056) ng/mL C-Reactive Protein (0.00-0.90) mg/dL Total Protein (6.4-8.2) g/dL Albumin (3.4-5.0) g/dL Globulin (2.6-4.0) g/dL Albumin/Globulin Ratio (0.9-1.6) Lipase (73-393) U/L TSH, Ultra Sensitive (0.36-3.74) uIU/mL Urine Color DARK YELLOW Urine Appearance SLT CLOUDY Urine pH 6.0 (5.0-8.0) Ur Specific [place] >= 1.030 (1.001-1.035) Urine Protein >=300 H (NEGATIVE) mg/dL Urine Glucose (UA) 250 H (NEGATIVE) mg/dL Urine Ketones NEGATIVE (NEGATIVE) mg/dL Urine Occult Blood MODERATE H (NEGATIVE) Urine Nitrite NEGATIVE (NEGATIVE) Urine Bilirubin SMALL H (NEGATIVE) Urine Urobilinogen 4.0 H (<2.0) EU/dL Ur Leukocyte Esterase NEGATIVE (NEGATIVE) Urine RBC 4-7 (0-2/HPF) Urine WBC 0-2 (0-5/HPF) Ur Epithelial Cells FEW (NONE-FEW) Urine Bacteria 1+ H (NEGATIVE) Urine Mucus LIGHT (NONE-MOD) Urine Opiates Screen POSITIVE (NEGATIVE) Ur Oxycodone Screen NEGATIVE (NEGATIVE) Urine Methadone Screen NEGATIVE (NEGATIVE) Ur Barbiturates Screen NEGATIVE (NEGATIVE) Ur Phencyclidine Scrn NEGATIVE (NEGATIVE) Ur Amphetamine Screen NEGATIVE (NEGATIVE) U Methamphetamines Scrn POSITIVE (NEGATIVE) U Benzodiazepines Scrn NEGATIVE (NEGATIVE) U Cocaine Metab Screen NEGATIVE (NEGATIVE) U Marijuana (THC) Screen POSITIVE (NEGATIVE) Ethyl Alcohol mg/dL Influenza Type A RNA (NEGATIVE) RSV RNA (INAAT) (NEGATIVE) Influenza Type B RNA (NEGATIVE) SARS-CoV-2 RNA (MARCUS) (NEGATIVE) 10/16/21 10/16/21 10/16/21 Range/Units 03:30 03:40 04:50 WBC (4.0-11.0) K/uL RBC (4.50-5.90) M/uL Hgb (13.0-17.0) g/dL Hct (38.0-50.0) % MCV (80.0-98.0) fL MCH (27.0-32.0) pg MCHC (31.0-37.0) g/dL RDW Std Deviation (28.0-62.0) fl RDW Coeff of Dennis (11.0-15.0) % Plt Count (150-400) K/uL MPV (7.40-12.00) fL Neut % (Auto) (48.0-80.0) % Lymph % (Auto) (16.0-40.0) % [place] % (Auto) (0.0-15.0) % Eos % (Auto) (0.0-7.0) % Baso % (Auto) (0.0-1.5) % Neut # (Auto) (1.4-5.7) K/uL Lymph # (Auto) (0.6-2.4) K/uL [place] # (Auto) (0.0-0.8) K/uL Eos # (Auto) (0.0-0.7) K/uL Baso # (Auto) (0.0-0.1) K/uL INR APTT (18.6-31.3) SEC D-Dimer, Quantitative (0.0-0.50) mg/L FEU ABG pH 7.37 (7.35-7.45) ABG pCO2 37 (35-45) mmHG ABG pO2 127 H (80-105) mmHG ABG HCO3 21 L (22-26) mEq/L ABG Total CO2 18.8 L (23-27) mmol/L ABG Base Excess -3.6 L (-2.0-3.0) Sodium 135 L (136-148) mmol/L Potassium 4.2 (3.5-5.1) mmol/L Chloride 101 (98-107) mmol/L Carbon Dioxide 24.3 (21.0-32.0) mmol/L BUN 18 (7.0-18.0) mg/dL Creatinine 1.1 (0.8-1.3) mg/dL Est Cr Clr Drug Dosing 79.92 mL/min Estimated GFR (MDRD) > 60.0 ml/min Glucose 246 H (74-106) mg/dL POC Glucose (70-99) mg/dL Lactic Acid 1.3 (0.4-2.0) mmol/L Calcium 7.3 L (8.5-10.1) mg/dL Phosphorus (2.6-4.7) mg/dL Magnesium (1.8-2.4) mg/dL Total Bilirubin (0.2-1.0) mg/dL AST (15-37) IU/L ALT (14-63) IU/L Alkaline Phosphatase (46-116) U/L Troponin I < 0.050 (0.000-0.056) ng/mL C-Reactive Protein (0.00-0.90) mg/dL Total Protein (6.4-8.2) g/dL Albumin (3.4-5.0) g/dL Globulin (2.6-4.0) g/dL Albumin/Globulin Ratio (0.9-1.6) Lipase (73-393) U/L TSH, Ultra Sensitive (0.36-3.74) uIU/mL Urine Color Urine Appearance Urine pH (5.0-8.0) Ur Specific [place] (1.001-1.035) Urine Protein (NEGATIVE) mg/dL Urine Glucose (UA) (NEGATIVE) mg/dL Urine Ketones (NEGATIVE) mg/dL Urine Occult Blood (NEGATIVE) Urine Nitrite (NEGATIVE) Urine Bilirubin (NEGATIVE) Urine Urobilinogen (<2.0) EU/dL Ur Leukocyte Esterase (NEGATIVE) Urine RBC (0-2/HPF) Urine WBC (0-5/HPF) Ur Epithelial Cells (NONE-FEW) Urine Bacteria (NEGATIVE) Urine Mucus (NONE-MOD) Urine Opiates Screen (NEGATIVE) Ur Oxycodone Screen (NEGATIVE) Urine Methadone Screen (NEGATIVE) Ur Barbiturates Screen (NEGATIVE) Ur Phencyclidine Scrn (NEGATIVE) Ur Amphetamine Screen (NEGATIVE) U Methamphetamines Scrn (NEGATIVE) U Benzodiazepines Scrn (NEGATIVE) U Cocaine Metab Screen (NEGATIVE) U Marijuana (THC) Screen (NEGATIVE) Ethyl Alcohol mg/dL Influenza Type A RNA (NEGATIVE) RSV RNA (INAAT) (NEGATIVE) Influenza Type B RNA (NEGATIVE) SARS-CoV-2 RNA (MARCUS) (NEGATIVE) Result Diagrams: 10/16/21 00:15 10/16/21 04:50 Sepsis Event Note - Evaluation Sepsis Screening Result: No Definite Risk - Focused Exam Vital Signs: Vital Signs Temp Temp Pulse Pulse Resp BP BP 10/16/21 15:07 35.9 C L 86 17 134/62 10/16/21 13:37 118 H 18 113/75 10/16/21 12:41 116 H 132/89 10/16/21 11:00 100 16 98/72 10/16/21 09:05 36.6 C 10/16/21 08:35 116 H 16 118/55 L 10/16/21 07:15 102 H 16 106/72 Pulse Ox 10/16/21 15:07 96 10/16/21 13:37 96 10/16/21 12:41 10/16/21 11:00 98 10/16/21 09:05 10/16/21 08:35 100 10/16/21 07:15 100 - Problem List (1) COVID-19 SNOMED Code(s): 287729893 ICD Code: U07.1 - COVID-19 Status: Acute Priority: High Current Visit: Yes Onset Date: ~10/16/21 Problem Details: discussed protocol treatment and emergancy use authorization use and he wholly agrees. discussed covid concerns. (2) Hypotension SNOMED Code(s): 23371939 ICD Code: I95.9 - HYPOTENSION, UNSPECIFIED Status: Acute Priority: Low Current Visit: Yes Onset Date: ~10/16/21 Problem Details: b.p now quite good without i.v.s and has central line in place and no signs def. acute chf but port xray shows increased vasc without effusions and atelectasis. c/w copd and possibly covid early . ? atypical infiltrate Qualifiers: Hypotension type: unspecified hypotension type Qualified Code(s): I95.9 - Hypotension, unspecified (3) Methamphetamine abuse SNOMED Code(s): 840761719 ICD Code: F15.10 - OTHER STIMULANT ABUSE, UNCOMPLICATED Status: Acute Priority: Low Current Visit: Yes Onset Date: ~10/16/21 Problem Details: denies any meth use or other illicit use other than mjh . opiods prescribed for many years . on blood thinners . (4) Unresponsive state SNOMED Code(s): 657828824 ICD Code: R41.89 - OTH SYMPTOMS AND SIGNS W COGNITIVE FUNCTIONS AND AWARENESS Status: Acute Priority: High Current Visit: Yes Onset Date: ~10/16/21 Problem Details: loc unexplained / intubated and now extubated and now normal recall . (5) Atrial fibrillation with RVR SNOMED Code(s): 804233427560541 ICD Code: I48.91 - UNSPECIFIED ATRIAL FIBRILLATION Status: Acute Priority: Medium Current Visit: No Problem Details: Recurrent, post conversion Problem List Initiated/Reviewed/Updated: Yes Orders Last 24hrs: Active Orders 24 hr Category Date Time Status Admission Status [Patient Status] [ADT] Stat ADT 10/16/21 12:56 Active Insert Flor Catheter [Insert Urinary Catheter] [OM.PC] Care 10/16/21 00:45 Ordered Q24H Telemetry Monitoring [Cardiac Monitoring] [RC] . Care 10/16/21 15:09 Active DIRECTED CORONAVIRUS COVID-19 MARCUS [MOLEC] Stat Lab 10/16/21 00:26 Stop Req COVID-19/FLU A+B/RSV [MOLEC] Stat Lab 10/16/21 00:26 Stop Req CULTURE BLOOD [BC] Stat Lab 10/16/21 00:15 Received CULTURE BLOOD [BC] Stat Lab 10/16/21 01:17 Received Midazolam [Versed 5 MG/ML] 50 mg Med 10/16/21 08:45 Active Sodium Chloride 0.9% [Normal Saline] 40 ml IV TITRATE Norepinephrine Bit/0.9 % NaCl [Norepinephr-0.9% NaCl 4 Med 10/16/21 01:30 Active mg/250] 4 mg in 250 ml IV TITRATE Norepinephrine Bit/0.9 % NaCl [Norepinephr-0.9% NaCl 4 Med 10/16/21 08:45 Active mg/250] 4 mg in 250 ml IV TITRATE Pharmacy to Dose - Vancomycin Med 10/16/21 09:00 Active 1 dose .XX DAILY VANCOmycin 1.5 GM/300 ML 1.5 gm Med 10/16/21 15:00 Active Premix Bag 1 bag IV Q12H fentaNYL/Normal Saline [fentaNYL 2500 MCG in NS 250 ML Med 10/16/21 00:27 Active (10 MCG/ML)] 2,500 mcg Premix Bag 1 bag IV TITRATE Blood Culture x2 Reflex Set [OM.PC] Stat Oth 10/16/21 00:27 Ordered Isolation [COMM] Routine Oth 10/16/21 00:26 Active Saline Lock Insert [OM.PC] Stat Oth 10/16/21 00:26 Ordered Medication Orders Fentanyl Citrate 2,500 mcg/ (Premix) 250 mls @ 2.5 mls/hr IV TITRATE PRN; Protocol PRN Reason: Sedation Last Titration: 10/16/21 08:36 Dose: 75 mcg/hr, 7.5 mls/hr Documented by: Titration: 10/16/21 08:18 Dose: 100 mcg/hr, 10 mls/hr Documented by: Titration: 10/16/21 06:03 Dose: 75 mcg/hr, 7.5 mls/hr Documented by: Titration: 10/16/21 02:40 Dose: 50 mcg/hr, 5 mls/hr Documented by: Admin: 10/16/21 01:03 Dose: 25 mcg/hr, 2.5 mls/hr Documented by: SHANTEL Norepinephrine Bitartrate (Norepinephr-0.9% Nacl 4 Mg/250) 4 mg in 250 mls @ 7.5 mls/hr IV TITRATE [facility]; Protocol Last Titration: 10/16/21 08:18 Dose: 4 mcg/min, 15 mls/hr Documented by: Titration: 10/16/21 01:56 Dose: 2.67 mcg/min, 10 mls/hr Documented by: Admin: 10/16/21 01:42 Dose: 2 mcg/min, 7.5 mls/hr Documented by: SHANTEL Vancomycin HCl 1.5 gm/ Premix 300 mls @ 200 mls/hr IV Q12H [facility]KO Midazolam HCl 50 mg/ Sodium (Chloride) 50 mls @ 0.5 mls/hr IV TITRATE [facility]KO; Protocol Last Admin: 10/16/21 08:56 Dose: 0.5 mg/hr, 0.5 mls/hr Documented by: JANE Norepinephrine Bitartrate (Norepinephr-0.9% Nacl 4 Mg/250) 4 mg in 250 mls @ 7.5 mls/hr IV TITRATE [facility]KO; Protocol Last Admin: 10/16/21 08:54 Dose: 2 mcg/min, 7.5 mls/hr Documented by: JANE Vancomycin HCl (Pharmacy To Dose - Vancomycin) 1 dose .XX DAILY [facility] Last Admin: 10/16/21 09:25 Dose: Not Given Documented by: JANE Assessment/Plan Comment:: 10/16/21 assessment: covid early day 4 immunization without booster dose . start protocol rem/steriods/nebs and isolation. hypoxia moderate s/p extubation . arrest with resp agonal breathing witnessed and intubation with findings of afib arrythmia chronic and on anticoag. cad stable symptoms by hx but now with covid and intiial trop normal. infiltrates minimal on xray . labs normal and renal a nd liver function appears normal . obesity mild . disability on chronic pain control a nd does not adjust meds on own but denies any ansaids use or g.i symptoms . copd chronic smoker nad offered patch and gum . plan:patient is at extremely high risk if he codes and will be placed on telemetry . repeat labs and start protocol. boh - Mortality Measure Prognosis:: Poor
[2021-10-16] MEDS: VANCOmycin 1.5 GM/300 ML 1.5 GM in Premix Bag 1 BAG IV SCH (15:42)
[2021-10-16] MEDS ORDERED: 50% Dextrose in Water 50 ML Syringe IVPUSH PRN ×2 (15:52→15:58)
[2021-10-16] MEDS ORDERED: Glucagon,Human Recombinant 1 MG Vial IM PRN ×2 (15:52→15:58)
[2021-10-16] MEDS ORDERED: Famotidine 20 MG Tab PO PRN (16:35)
[2021-10-16] MEDS: Insulin Aspart 100 Units/ML 3 ML Pen SUBCUT SCH (17:06)
[2021-10-16] MEDS: traZODone 50 MG Tab PO SCH (20:11)
[2021-10-16] MEDS: Metoprolol Succinate 25 MG Tab.ER PO SCH (20:11)
[2021-10-16] MEDS: Apixaban 5 MG Tab PO SCH (20:12)
[2021-10-16] MEDS: QUEtiapine 100 MG Tab PO SCH (20:12)
[2021-10-16] MEDS: Pregabalin 200 MG Cap PO SCH (20:12)
[2021-10-16] MEDS: atorvaSTATin 40 MG Tab PO SCH (20:13)
[2021-10-16] MEDS: Acetaminophen/HYDROcodone 325-10 MG Tab PO PRN (20:20)
[2021-10-16] MEDS ORDERED: TICAGRELOR 90 MG PO SCH (21:00)
[2021-10-17] MEDS: Pregabalin 200 MG Cap PO SCH ×4 (00:31→21:03)
[2021-10-17] MEDS: Piperacillin/Tazobactam 3.375 GM in Sodium Chloride 0.9% 50 ML IV SCH ×4 (01:13→21:01)
[2021-10-17] MEDS: VANCOmycin 1.5 GM/300 ML 1.5 GM in Premix Bag 1 BAG IV SCH ×2 (02:55→15:49)
[2021-10-17] MEDS: REMDESIVIR 100 MG in Sodium Chloride 0.9% 100 ML IV SCH (04:31)
[2021-10-17] MEDS: Acetaminophen/HYDROcodone 325-10 MG Tab PO PRN ×3 (05:32→16:05)
[2021-10-17] MEDS: Venlafaxine 75 MG Cap.ER PO SCH (08:25)
[2021-10-17] MEDS: Amiodarone 200 MG Tab PO SCH (08:25)
[2021-10-17] MEDS: Dexamethasone 4 MG Tab PO SCH (08:25)
[2021-10-17] MEDS: Clopidogrel 75 MG Tab PO SCH (08:25)
[2021-10-17] MEDS: DULoxetine 60 MG Cap PO SCH (08:25)
[2021-10-17] MEDS: Apixaban 5 MG Tab PO SCH ×2 (08:25→21:02)
[2021-10-17 08:28] LABS: BLOOD UREA NITROGEN,BUN 21 mg/dL (7.0-18.0); CARBON DIOXIDE,CO2 26.8 mmol/L (21.0-32.0); CHLORIDE,CL 105 mmol/L (98-107); GLUCOSE RANDOM 160 mg/dL (74-106); POTASSIUM,K 4.1 mmol/L (3.5-5.1); SODIUM,NA 139 mmol/L (136-148)
--- NOTE | 2021-10-17 08:30 | PCM.PN ---
- General Info Date of Service: 10/17/21 Admission Dx/Problem (Free Text): Admission Diagnosis/Problem Admission Diagnosis/Problem Fever, unspecified/cardiac/resp arrest. Subjective Update: Denies any chest pain. Reports shortness of breath. Reports chronic back and leg pain. Denies any abdominal pain. Reports coughing and shortness of breath and otherwise feeling generalized malaise and body aches. No other significant concerns at this time. Functional Status: Reports: Pain Controlled, Tolerating Diet, Ambulating, Urinating - Review of Systems General: Reports: Weakness, Fatigue, Malaise HEENT: Reports: Sinus Congestion, Sore Throat Pulmonary: Reports: Shortness of Breath, Cough, Sputum. Denies: Hemoptysis, Wheezing Cardiovascular: Denies: Chest Pain, Palpitations, Orthopnea, Edema Gastrointestinal: Reports: No Symptoms. Denies: Abdominal Pain, Nausea, Vomiting Genitourinary: Reports: No Symptoms. Denies: Dysuria, Frequency Musculoskeletal: Reports: Back Pain (Chronic), Leg Pain (Chronic) Skin: Reports: No Symptoms Neurological: Reports: No Symptoms Psychiatric: Reports: No Symptoms - Patient Data Vitals - Most Recent: Last Vital Signs Temp 97.4 F 10/17/21 08:28 Pulse 74 10/17/21 08:28 Resp 19 10/17/21 08:28 BP 94/69 10/17/21 08:28 Pulse Ox 93 L 10/17/21 08:28 Weight - Most Recent: 99.291 kg I&O - Last 24 Hours: Intake & Output 10/16/21 10/17/21 10/17/21 22:59 06:59 14:59 Intake Total 1730 Output Total 900 Balance 830 Lab Results Last 24 Hours: Laboratory Results - last 24 hr 10/16/21 10/17/21 10/17/21 Range/Units 17:01 06:26 06:40 WBC (4.0-11.0) K/uL RBC (4.50-5.90) M/uL Hgb (13.0-17.0) g/dL Hct (38.0-50.0) % MCV (80.0-98.0) fL MCH (27.0-32.0) pg MCHC (31.0-37.0) g/dL RDW Std Deviation (28.0-62.0) fl RDW Coeff of Dennis (11.0-15.0) % Plt Count (150-400) K/uL MPV (7.40-12.00) fL Neut % (Auto) (48.0-80.0) % Lymph % (Auto) (16.0-40.0) % Giles % (Auto) (0.0-15.0) % Eos % (Auto) (0.0-7.0) % Baso % (Auto) (0.0-1.5) % Neut # (Auto) (1.4-5.7) K/uL Lymph # (Auto) (0.6-2.4) K/uL Giles # (Auto) (0.0-0.8) K/uL Eos # (Auto) (0.0-0.7) K/uL Baso # (Auto) (0.0-0.1) K/uL Nucleated RBC % /100WBC Nucleated RBCs # K/uL Sodium 139 (136-148) mmol/L Potassium 4.1 (3.5-5.1) mmol/L Chloride 105 (98-107) mmol/L Carbon Dioxide 26.8 (21.0-32.0) mmol/L BUN 21 H (7.0-18.0) mg/dL Creatinine 0.8 (0.8-1.3) mg/dL Est Cr Clr Drug Dosing 106.81 mL/min Estimated GFR (MDRD) > 60.0 ml/min Glucose 160 H (74-106) mg/dL POC Glucose 260 H 154 H (70-99) mg/dL Calcium 7.8 L (8.5-10.1) mg/dL Total Bilirubin 0.4 (0.2-1.0) mg/dL AST 91 H (15-37) IU/L ALT 40 (14-63) IU/L Alkaline Phosphatase 52 (46-116) U/L Troponin I < 0.050 (0.000-0.056) ng/mL Total Protein 5.5 L (6.4-8.2) g/dL Albumin 2.5 L (3.4-5.0) g/dL Globulin 3.0 (2.6-4.0) g/dL Albumin/Globulin Ratio 0.8 L (0.9-1.6) 10/17/21 Range/Units 06:40 WBC 11.09 H (4.0-11.0) K/uL RBC 4.32 L (4.50-5.90) M/uL Hgb 13.1 (13.0-17.0) g/dL Hct 40.6 (38.0-50.0) % MCV 94.0 (80.0-98.0) fL MCH 30.3 (27.0-32.0) pg MCHC 32.3 (31.0-37.0) g/dL RDW Std Deviation 49.6 (28.0-62.0) fl RDW Coeff of Dennis 14 (11.0-15.0) % Plt Count 147 L (150-400) K/uL MPV 11.20 (7.40-12.00) fL Neut % (Auto) 57.5 (48.0-80.0) % Lymph % (Auto) 33.6 (16.0-40.0) % Giles % (Auto) 7.7 (0.0-15.0) % Eos % (Auto) 1.0 (0.0-7.0) % Baso % (Auto) 0.2 (0.0-1.5) % Neut # (Auto) 6.4 H (1.4-5.7) K/uL Lymph # (Auto) 3.7 H (0.6-2.4) K/uL Giles # (Auto) 0.9 H (0.0-0.8) K/uL Eos # (Auto) 0.1 (0.0-0.7) K/uL Baso # (Auto) 0.0 (0.0-0.1) K/uL Nucleated RBC % 0.0 /100WBC Nucleated RBCs # 0 K/uL Sodium (136-148) mmol/L Potassium (3.5-5.1) mmol/L Chloride (98-107) mmol/L Carbon Dioxide (21.0-32.0) mmol/L BUN (7.0-18.0) mg/dL Creatinine (0.8-1.3) mg/dL Est Cr Clr Drug Dosing mL/min Estimated GFR (MDRD) ml/min Glucose (74-106) mg/dL POC Glucose (70-99) mg/dL Calcium (8.5-10.1) mg/dL Total Bilirubin (0.2-1.0) mg/dL AST (15-37) IU/L ALT (14-63) IU/L Alkaline Phosphatase (46-116) U/L Troponin I (0.000-0.056) ng/mL Total Protein (6.4-8.2) g/dL Albumin (3.4-5.0) g/dL Globulin (2.6-4.0) g/dL Albumin/Globulin Ratio (0.9-1.6) Payam Results Last 24 Hours: Microbiology 10/16/21 01:17 Aerobic Blood Culture - Preliminary Blood - Venous - Lab Draw NO GROWTH AFTER 1 DAY Anaerobic Blood Culture - Preliminary NO GROWTH AFTER 1 DAY 10/16/21 00:15 Aerobic Blood Culture - Preliminary Blood - Venous NO GROWTH AFTER 1 DAY Anaerobic Blood Culture - Preliminary Med Orders - Current: Current Medications Hydrocodone Bitart/Acetaminophen (Acetaminophen/Hydrocodone 325-10 Mg Tab) 1 tab PO Q4H PRN PRN Reason: Pain Last Admin: 10/17/21 05:32 Dose: 1 tab Documented by: Amiodarone HCl (Amiodarone 200 Mg Tab) 200 mg PO DAILY [facility] Last Admin: 10/17/21 08:25 Dose: 200 mg Documented by: Apixaban (Apixaban 5 Mg Tab) 5 mg PO BID [facility] Last Admin: 10/17/21 08:25 Dose: 5 mg Documented by: Atorvastatin Calcium (Atorvastatin 40 Mg Tab) 40 mg PO BEDTIME [facility] Last Admin: 10/16/21 20:13 Dose: 40 mg Documented by: Clopidogrel Bisulfate (Clopidogrel 75 Mg Tab) 75 mg PO DAILY [facility] Last Admin: 10/17/21 08:25 Dose: 75 mg Documented by: Dexamethasone (Dexamethasone 4 Mg Tab) 6 mg PO DAILY [facility] Last Admin: 10/17/21 08:25 Dose: 6 mg Documented by: Dextrose/Water (50% Dextrose In Water 50 Ml Syringe) 50 ml IVPUSH ASDIRECTED PRN PRN Reason: Hypoglycemia Duloxetine HCl (Duloxetine 60 Mg Cap) 60 mg PO DAILY [facility] Last Admin: 10/17/21 08:25 Dose: 60 mg Documented by: Famotidine (Famotidine 20 Mg Tab) 20 mg PO BID PRN PRN Reason: Other Last Admin: 10/16/21 17:07 Dose: 20 mg Documented by: Glucagon (Glucagon,Human Recombinant 1 Mg Vial) 1 mg IM ASDIRECTED PRN PRN Reason: Hypoglycemia Vancomycin HCl 1.5 gm/ Premix 300 mls @ 200 mls/hr IV Q12H [facility] Last Admin: 10/17/21 02:55 Dose: 200 mls/hr Documented by: Remdesivir 100 mg/ Sodium (Chloride) 100 mls @ 100 mls/hr IV Q24H [facility]KO Stop: 10/20/21 04:59 Last Admin: 10/17/21 04:31 Dose: 100 mls/hr Documented by: Piperacillin Sod/Tazobactam (Sod 3.375 gm/ Sodium Chloride) 50 mls @ 100 mls/hr IV Q8H [facility] Last Admin: 10/17/21 08:25 Dose: 100 mls/hr Documented by: Insulin Aspart (Insulin Aspart 100 Units/Ml 3 Ml Pen) 0 unit SUBCUT TIDAC [facility]; Protocol Last Admin: 10/16/21 17:06 Dose: 6 units Documented by: Insulin Glargine (Insulin Glargine,Human Rec. Analog 100 Units/Ml 3 Ml Pen) 16 units SUBCUT DAILY [facility] Metoprolol Succinate (Metoprolol Succinate 25 Mg Tab.Er) 75 mg PO BEDTIME [facility] Last Admin: 10/16/21 20:11 Dose: 75 mg Documented by: Pregabalin (Pregabalin 200 Mg Cap) 200 mg PO TID [facility] Last Admin: 10/17/21 05:26 Dose: 200 mg Documented by: Quetiapine Fumarate (Quetiapine 100 Mg Tab) 200 mg PO BEDTIME [facility] Last Admin: 10/16/21 20:12 Dose: 200 mg Documented by: Trazodone HCl (Trazodone 50 Mg Tab) 50 mg PO BEDTIME [facility] Last Admin: 10/16/21 20:11 Dose: 50 mg Documented by: Vancomycin HCl (Pharmacy To Dose - Vancomycin) 1 dose .XX DAILY [facility] Last Admin: 10/16/21 09:25 Dose: Not Given Documented by: Venlafaxine HCl (Venlafaxine 75 Mg Cap.Er) 75 mg PO DAILY [facility] Last Admin: 10/17/21 08:25 Dose: 75 mg Documented by: Discontinued Medications Dexamethasone (Dexamethasone 10 Mg/Ml Sdv) 6 mg IVPUSH ONETIME ONE Stop: 10/16/21 01:44 Last Admin: 10/16/21 01:54 Dose: 6 mg Documented by: Dextrose/Water (50% Dextrose In Water 50 Ml Syringe) 50 ml IVPUSH ASDIRECTED PRN PRN Reason: Hypoglycemia Fentanyl (Fentanyl 50 Mcg/Ml Sdv) 50 mcg IVPUSH ONETIME ONE Stop: 10/16/21 00:30 Last Admin: 10/16/21 00:55 Dose: 50 mcg Documented by: Glucagon (Glucagon,Human Recombinant 1 Mg Vial) 1 mg IM ASDIRECTED PRN PRN Reason: Hypoglycemia Sodium Chloride (Normal Saline) 1,000 mls @ 999 mls/hr IV .Bolus ONE Stop: 10/16/21 01:26 Last Admin: 10/16/21 00:59 Dose: 999 mls/hr Documented by: Fentanyl Citrate 2,500 mcg/ (Premix) 250 mls @ 2.5 mls/hr IV TITRATE PRN; Protocol PRN Reason: Sedation Last Titration: 10/16/21 08:36 Dose: 75 mcg/hr, 7.5 mls/hr Documented by: Sodium Chloride (Normal Saline) 1,000 mls @ 999 mls/hr IV .Bolus ONE Stop: 10/16/21 01:28 Last Admin: 10/16/21 01:00 Dose: 999 mls/hr Documented by: Sodium Chloride (Normal Saline) 1,000 mls @ 999 mls/hr IV .Bolus ONE Stop: 10/16/21 01:28 Last Admin: 10/16/21 01:29 Dose: 999 mls/hr Documented by: Cefepime HCl 2 gm/ Premix 50 mls @ 100 mls/hr IV ONETIME ONE Stop: 10/16/21 00:58 Last Admin: 10/16/21 01:12 Dose: 100 mls/hr Documented by: Fentanyl Citrate (Fentanyl 2500 Mcg In Ns 250 Ml (10 Mcg/Ml)) Confirm Administered Dose 250 mls @ as directed .ROUTE .STK-MED ONE Stop: 10/16/21 00:45 Last Admin: 10/16/21 01:07 Dose: Not Given Documented by: Vancomycin HCl 2 gm/ Premix 400 mls @ 200 mls/hr IV NOW ONE Stop: 10/16/21 02:59 Last Admin: 10/16/21 04:20 Dose: 200 mls/hr Documented by: Norepinephrine Bitartrate (Norepinephr-0.9% Nacl 4 Mg/250) 4 mg in 250 mls @ 7. 5 mls/hr IV TITRATE CHEKO; Protocol Last Titration: 10/16/21 08:18 Dose: 4 mcg/min, 15 mls/hr Documented by: Remdesivir 200 mg/ Sodium (Chloride) 250 mls @ 250 mls/hr IV ONETIME ONE Stop: 10/16/21 01:45 Last Admin: 10/16/21 03:06 Dose: 250 mls/hr Documented by: Sodium Chloride (Normal Saline) 1,000 mls @ 100 mls/hr IV .Bolus ONE Stop: 10/16/21 12:37 Last Admin: 10/16/21 03:47 Dose: 100 mls/hr Documented by: Midazolam HCl 50 mg/ Sodium (Chloride) 50 mls @ 0.5 mls/hr IV TITRATE CHEKO; Protocol Last Admin: 10/16/21 08:56 Dose: 0.5 mg/hr, 0.5 mls/hr Documented by: Norepinephrine Bitartrate (Norepinephr-0.9% Nacl 4 Mg/250) 4 mg in 250 mls @ 7.5 mls/hr IV TITRATE CHEKO; Protocol Last Admin: 10/16/21 08:54 Dose: 2 mcg/min, 7.5 mls/hr Documented by: Cefepime HCl 2 gm/ Premix 50 mls @ 100 mls/hr IV ONETIME ONE Stop: 10/16/21 12:29 Last Admin: 10/16/21 12:19 Dose: 100 mls/hr Documented by: Metoprolol Tartrate 5 mg/ (Sodium Chloride) 55 mls @ 100 mls/hr IV ONETIME ONE Stop: 10/16/21 12:55 Last Admin: 10/16/21 12:40 Dose: Not Given Documented by: Iopamidol (Iopamidol 755 Mg/Ml 500 Ml Multipack Bottle) 75 ml IVPUSH ONETIME STA Stop: 10/16/21 03:17 Last Admin: 10/16/21 03:17 Dose: 75 ml Documented by: Ketamine HCl (Ketamine 500 Mg/10 Ml Mdv) Confirm Administered Dose 500 mg .ROUTE .STK-MED ONE Stop: 10/16/21 08:12 Last Admin: 10/16/21 08:19 Dose: Not Given Documented by: Ketamine HCl (Ketamine 500 Mg/10 Ml Mdv) 50 mg IV ONETIME ONE Stop: 10/16/21 08:17 Last Admin: 10/16/21 08:20 Dose: 50 mg Documented by: Ketorolac Tromethamine (Ketorolac 30 Mg/Ml Sdv) 30 mg IVPUSH ONETIME ONE Stop: 10/16/21 14:17 Last Admin: 10/16/21 15:42 Dose: 30 mg Documented by: Metoprolol Succinate (Metoprolol Succinate 50 Mg Tab.Er) 50 mg PO ONETIME ONE Stop: 10/16/21 12:24 Last Admin: 10/16/21 12:41 Dose: 50 mg Documented by: Metoprolol Succinate (Metoprolol Succinate 50 Mg Tab.Er) Confirm Administered Dose 50 mg .ROUTE .STK-MED ONE Stop: 10/16/21 12:28 Last Admin: 10/16/21 12:42 Dose: Not Given Documented by: Metoprolol Tartrate (Metoprolol Tartrate 5 Mg/5 Ml Sdv) Confirm Administered Dose 5 mg .ROUTE .STK-MED ONE Stop: 10/16/21 12:36 Last Admin: 10/16/21 12:59 Dose: Not Given Documented by: Midazolam HCl (Midazolam 1 Mg/Ml 2 Ml Sdv) 2 mg IVPUSH ONETIME ONE Stop: 10/16/21 08:34 Last Admin: 10/16/21 08:36 Dose: 2 mg Documented by: Midazolam HCl (Midazolam 1 Mg/Ml 2 Ml Sdv) Confirm Administered Dose 2 mg .ROUTE .STK-MED ONE Stop: 10/16/21 08:35 Last Admin: 10/16/21 08:44 Dose: Not Given Documented by: Non-Formulary Medication (Ticagrelor) 90 mg PO BID CHEKO - Exam Quality Assessment: Supplemental Oxygen (2 L nasal cannula), Central Line/PICC (Left neck central line in place. IO remains in place to left leg to be removed urgently.), DVT Prophylaxis (Eliquis) Urinary Catheter Total Time: 0Days 1Hours General: Alert, Oriented, Cooperative, No Acute Distress Lungs: Decreased Breath Sounds, Rhonchi Cardiovascular: Regular Rate, Irregular Rhythm GI/Abdominal Exam: Normal Bowel Sounds, Soft, Non-Tender Extremities: Normal Inspection, Normal Range of Motion, Non-Tender, No Pedal Edema Neurological: No New Focal Deficit Psy/Mental Status: Alert, Normal Affect, Normal Mood - Patient Data Lab Results Last 24 hrs: Laboratory Results - last 24 hr 10/16/21 10/17/21 10/17/21 Range/Units 17:01 06:26 06:40 WBC (4.0-11.0) K/uL RBC (4.50-5.90) M/uL Hgb (13.0-17.0) g/dL Hct (38.0-50.0) % MCV (80.0-98.0) fL MCH (27.0-32.0) pg MCHC (31.0-37.0) g/dL RDW Std Deviation (28.0-62.0) fl RDW Coeff of Dennis (11.0-15.0) % Plt Count (150-400) K/uL MPV (7.40-12.00) fL Neut % (Auto) (48.0-80.0) % Lymph % (Auto) (16.0-40.0) % Giles % (Auto) (0.0-15.0) % Eos % (Auto) (0.0-7.0) % Baso % (Auto) (0.0-1.5) % Neut # (Auto) (1.4-5.7) K/uL Lymph # (Auto) (0.6-2.4) K/uL Giles # (Auto) (0.0-0.8) K/uL Eos # (Auto) (0.0-0.7) K/uL Baso # (Auto) (0.0-0.1) K/uL Nucleated RBC % /100WBC Nucleated RBCs # K/uL Sodium 139 (136-148) mmol/L Potassium 4.1 (3.5-5.1) mmol/L Chloride 105 (98-107) mmol/L Carbon Dioxide 26.8 (21.0-32.0) mmol/L BUN 21 H (7.0-18.0) mg/dL Creatinine 0.8 (0.8-1.3) mg/dL Est Cr Clr Drug Dosing 106.81 mL/min Estimated GFR (MDRD) > 60.0 ml/min Glucose 160 H (74-106) mg/dL POC Glucose 260 H 154 H (70-99) mg/dL Calcium 7.8 L (8.5-10.1) mg/dL Total Bilirubin 0.4 (0.2-1.0) mg/dL AST 91 H (15-37) IU/L ALT 40 (14-63) IU/L Alkaline Phosphatase 52 (46-116) U/L Troponin I < 0.050 (0.000-0.056) ng/mL Total Protein 5.5 L (6.4-8.2) g/dL Albumin 2.5 L (3.4-5.0) g/dL Globulin 3.0 (2.6-4.0) g/dL Albumin/Globulin Ratio 0.8 L (0.9-1.6) 10/17/21 Range/Units 06:40 WBC 11.09 H (4.0-11.0) K/uL RBC 4.32 L (4.50-5.90) M/uL Hgb 13.1 (13.0-17.0) g/dL Hct 40.6 (38.0-50.0) % MCV 94.0 (80.0-98.0) fL MCH 30.3 (27.0-32.0) pg MCHC 32.3 (31.0-37.0) g/dL RDW Std Deviation 49.6 (28.0-62.0) fl RDW Coeff of Dennis 14 (11.0-15.0) % Plt Count 147 L (150-400) K/uL MPV 11.20 (7.40-12.00) fL Neut % (Auto) 57.5 (48.0-80.0) % Lymph % (Auto) 33.6 (16.0-40.0) % Giles % (Auto) 7.7 (0.0-15.0) % Eos % (Auto) 1.0 (0.0-7.0) % Baso % (Auto) 0.2 (0.0-1.5) % Neut # (Auto) 6.4 H (1.4-5.7) K/uL Lymph # (Auto) 3.7 H (0.6-2.4) K/uL Giles # (Auto) 0.9 H (0.0-0.8) K/uL Eos # (Auto) 0.1 (0.0-0.7) K/uL Baso # (Auto) 0.0 (0.0-0.1) K/uL Nucleated RBC % 0.0 /100WBC Nucleated RBCs # 0 K/uL Sodium (136-148) mmol/L Potassium (3.5-5.1) mmol/L Chloride (98-107) mmol/L Carbon Dioxide (21.0-32.0) mmol/L BUN (7.0-18.0) mg/dL Creatinine (0.8-1.3) mg/dL Est Cr Clr Drug Dosing mL/min Estimated GFR (MDRD) ml/min Glucose (74-106) mg/dL POC Glucose (70-99) mg/dL Calcium (8.5-10.1) mg/dL Total Bilirubin (0.2-1.0) mg/dL AST (15-37) IU/L ALT (14-63) IU/L Alkaline Phosphatase (46-116) U/L Troponin I (0.000-0.056) ng/mL Total Protein (6.4-8.2) g/dL Albumin (3.4-5.0) g/dL Globulin (2.6-4.0) g/dL Albumin/Globulin Ratio (0.9-1.6) Result Diagrams: 10/17/21 06:40 10/17/21 06:40 Payam Results Last 24 hrs: Microbiology 10/16/21 01:17 Aerobic Blood Culture - Preliminary Blood - Venous - Lab Draw NO GROWTH AFTER 1 DAY Anaerobic Blood Culture - Preliminary NO GROWTH AFTER 1 DAY 10/16/21 00:15 Aerobic Blood Culture - Preliminary Blood - Venous NO GROWTH AFTER 1 DAY Anaerobic Blood Culture - Preliminary Sepsis Event Note - Evaluation Sepsis Screening Result: No Definite Risk - Focused Exam Vital Signs: Vital Signs Temp Pulse Resp BP BP Pulse Ox 10/17/21 08:28 97.4 F 74 19 94/69 93 L 10/17/21 03:54 97.1 F 89 20 95/60 97 10/17/21 00:00 97.3 F 73 20 92/60 93 L - Problem List & Annotations (1) Acute respiratory failure with hypoxia SNOMED Code(s): 37594880, 756955559 Code(s): J96.01 - ACUTE RESPIRATORY FAILURE WITH HYPOXIA Status: Acute Current Visit: Yes (2) Bacteremia SNOMED Code(s): 5076020 Code(s): R78.81 - BACTEREMIA Status: Acute Current Visit: Yes (3) COVID-19 SNOMED Code(s): 363604958 Code(s): U07.1 - COVID-19 Status: Acute Priority: High Current Visit: Yes Onset Date: ~10/16/21 Annotation/Comment:: discussed protocol treatment and emergancy use authorization use and he wholly agrees. discussed covid concerns. (4) Cardiac arrest SNOMED Code(s): 547903086 Code(s): I46.9 - CARDIAC ARREST, CAUSE UNSPECIFIED Status: Resolved Current Visit: Yes (5) Hypertension SNOMED Code(s): 40216110 Code(s): I10 - ESSENTIAL (PRIMARY) HYPERTENSION Status: Chronic Current Visit: No (6) Old cerebrovascular accident without late effect SNOMED Code(s): 890280561 Code(s): Z86.73 - PRSNL HX OF TIA (TIA), AND CEREB INFRC W/O RESID DEFICITS Status: Chronic Current Visit: No (7) Afib SNOMED Code(s): 86961511 Code(s): I48.91 - UNSPECIFIED ATRIAL FIBRILLATION Status: Chronic Current Visit: No Qualifiers: Atrial fibrillation type: paroxysmal Qualified Code(s): I48.0 - Paroxysmal atrial fibrillation (8) Chronic anticoagulation SNOMED Code(s): 006959771 Code(s): Z79.01 - USP (CURRENT) USE OF ANTICOAGULANTS Status: Chronic Priority: High Current Visit: No (9) Chronic neck pain SNOMED Code(s): 6865833043094 Code(s): M54.2 - CERVICALGIA; G89.29 - OTHER CHRONIC PAIN Status: Chronic Current Visit: No (10) Diabetes mellitus type 2, controlled SNOMED Code(s): 82908326, 506174588 Code(s): E11.9 - TYPE 2 DIABETES MELLITUS WITHOUT COMPLICATIONS Status: Chronic Priority: High Current Visit: No Qualifiers: Diabetes mellitus senior living insulin use: with rn first assist use Diabetes mellitus complication status: without complication Qualified Code(s): E11.9 - Type 2 diabetes mellitus without complications; 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 Acute hypoxic respiratory failure status post extubation/COVID-19 Continue dexamethasone daily Continue remdesivir, monitor LFTs Continue Combivent Encourage I-S and proning discussed this with patient at length patient verbalized understanding Tessalon Perles as needed cough 2. Bacteremia 1 out of 4 blood cultures positive for gram-positive cocci in clusters continue vancomycin Repeat blood culture pending Remove I/O and central line 3. History CVA, A. fib on chronic anticoagulation Continue home medications Monitor on telemetry Continue anticoagulation with Eliquis 4. DM type II Monitor blood sugars 3 times daily AC NovoLog sliding scale Monitor blood sugars closely with steroid use ADA diet VTE prophylaxis: Eliquis GI prophylaxis: Protonix CODE STATUS: Full code Dispo: 2 to 3 days pending improvement.
[2021-10-17] MEDS ORDERED: Albuterol/Ipratropium 4 GM Inhalation Spray INH PRN (08:31)
[2021-10-17] MEDS: Insulin Glargine,Human Rec. Analog 100 Units/ML 3 ML Pen SUBCUT SCH (08:47)
[2021-10-17] MEDS: Insulin Aspart 100 Units/ML 3 ML Pen SUBCUT SCH ×3 (08:47→17:53)
--- NOTE | 2021-10-17 14:02 | PCM.SN.2 ---
- Free Text/Narrative Note: Consulted for IV start. Pt. currently has central line which may be infected and pt. is also a difficult IV start. Attempted to start a 20 ga in the left AC without success. Pt. then wanted to sit in the chair for comfort. I applied an esmark to the right arm and had him dangle his arm over the chair for several minutes. I then attempted to start a 20 ga in the right AC but again was unsuccessful. Pt. did not want any further attempts at this time. Nurse and track laying supervisor both notified.
[2021-10-17] MEDS: QUEtiapine 100 MG Tab PO SCH (21:01)
[2021-10-17] MEDS: atorvaSTATin 40 MG Tab PO SCH (21:02)
[2021-10-17] MEDS: traZODone 50 MG Tab PO SCH (21:02)
[2021-10-17] MEDS: Metoprolol Succinate 25 MG Tab.ER PO SCH (21:03)
[2021-10-18] MEDS: Piperacillin/Tazobactam 3.375 GM in Sodium Chloride 0.9% 50 ML IV SCH ×3 (02:14→13:00)
[2021-10-18] MEDS: REMDESIVIR 100 MG in Sodium Chloride 0.9% 100 ML IV SCH (03:37)
[2021-10-18] MEDS: VANCOmycin 1.5 GM/300 ML 1.5 GM in Premix Bag 1 BAG IV SCH (04:19)
[2021-10-18] MEDS ORDERED: VANCOmycin 1.75 GM/350 ML 1.75 GM in Premix Bag 1 BAG IV SCH (04:30)
[2021-10-18] MEDS: Pregabalin 200 MG Cap PO SCH ×2 (05:46→13:47)
[2021-10-18] MEDS ORDERED: Pantoprazole 40 MG Tab.CR PO SCH (07:30)
[2021-10-18 08:11] LABS: BLOOD UREA NITROGEN,BUN 20 mg/dL (7.0-18.0); CARBON DIOXIDE,CO2 27.3 mmol/L (21.0-32.0); CHLORIDE,CL 103 mmol/L (98-107); GLUCOSE RANDOM 199 mg/dL (74-106); SODIUM,NA 139 mmol/L (136-148)
[2021-10-18] MEDS: Insulin Aspart 100 Units/ML 3 ML Pen SUBCUT SCH ×2 (08:19→12:39)
[2021-10-18] MEDS: Clopidogrel 75 MG Tab PO SCH (08:22)
[2021-10-18] MEDS: DULoxetine 60 MG Cap PO SCH (08:22)
[2021-10-18] MEDS: Amiodarone 200 MG Tab PO SCH (08:22)
[2021-10-18] MEDS: Acetaminophen/HYDROcodone 325-10 MG Tab PO PRN ×2 (08:22→14:23)
[2021-10-18] MEDS: Venlafaxine 75 MG Cap.ER PO SCH (08:23)
[2021-10-18] MEDS: Apixaban 5 MG Tab PO SCH (08:23)
[2021-10-18] MEDS: Dexamethasone 4 MG Tab PO SCH (08:23)
[2021-10-18] MEDS: Insulin Glargine,Human Rec. Analog 100 Units/ML 3 ML Pen SUBCUT SCH (08:23)
[2021-10-18] MEDS ORDERED: Magnesium Sulfate/Water 4 GM in Premix Bag 1 BAG IV ONE (08:26)
--- NOTE | 2021-10-18 08:27 | PCM.PN ---
- General Info Date of Service: 10/18/21 Admission Dx/Problem (Free Text): Admission Diagnosis/Problem Admission Diagnosis/Problem Fever, unspecified/cardiac/resp arrest. Subjective Update: Feeling ok this morning, continues to have SOB. Has not been up ambulating, but has been to chair for meals. Chronic pain continues, stable with pain medications. No chest pain. Appetite ok. Malaise continues. 2 L NC at this time. IS up to [id number] Functional Status: Reports: Pain Controlled, Tolerating Diet, Ambulating, Urinating - Review of Systems General: Reports: Weakness, Fatigue, Malaise HEENT: Reports: No Symptoms. Denies: Headaches, Sore Throat, Rhinitis Pulmonary: Reports: Shortness of Breath, Cough, Sputum (white) Cardiovascular: Reports: Dyspnea on Exertion. Denies: Chest Pain, Palpitations Gastrointestinal: Reports: No Symptoms. Denies: Abdominal Pain, Nausea, Vomiting Genitourinary: Reports: No Symptoms. Denies: Dysuria, Frequency, Burning Musculoskeletal: Reports: Back Pain (chronic), Leg Pain (chronic) Skin: Reports: No Symptoms Neurological: Reports: No Symptoms Psychiatric: Reports: No Symptoms - Patient Data Vitals - Most Recent: Last Vital Signs Temp 96.9 F 10/18/21 04:00 Pulse 66 10/18/21 06:02 Resp 18 10/18/21 04:00 BP 100/53 L 10/18/21 04:00 Pulse Ox 96 10/18/21 06:02 Weight - Most Recent: 99.291 kg I&O - Last 24 Hours: Intake & Output 10/17/21 10/18/21 10/18/21 22:59 06:59 14:59 Intake Total 1050 Output Total 675 Balance 375 Lab Results Last 24 Hours: Laboratory Results - last 24 hr 10/17/21 10/17/21 10/17/21 Range/Units 06:40 11:40 17:02 WBC (4.0-11.0) K/uL RBC (4.50-5.90) M/uL Hgb (13.0-17.0) g/dL Hct (38.0-50.0) % MCV (80.0-98.0) fL MCH (27.0-32.0) pg MCHC (31.0-37.0) g/dL RDW Std Deviation (28.0-62.0) fl RDW Coeff of Dennis (11.0-15.0) % Plt Count (150-400) K/uL MPV (7.40-12.00) fL Neut % (Auto) (48.0-80.0) % Lymph % (Auto) (16.0-40.0) % [place] % (Auto) (0.0-15.0) % Eos % (Auto) (0.0-7.0) % Baso % (Auto) (0.0-1.5) % Neut # (Auto) (1.4-5.7) K/uL Lymph # (Auto) (0.6-2.4) K/uL [place] # (Auto) (0.0-0.8) K/uL Eos # (Auto) (0.0-0.7) K/uL Baso # (Auto) (0.0-0.1) K/uL Nucleated RBC % /100WBC Nucleated RBCs # K/uL Sodium 139 (136-148) mmol/L Potassium 4.1 (3.5-5.1) mmol/L Chloride 105 (98-107) mmol/L Carbon Dioxide 26.8 (21.0-32.0) mmol/L BUN 21 H (7.0-18.0) mg/dL Creatinine 0.8 (0.8-1.3) mg/dL Est Cr Clr Drug Dosing 106.81 mL/min Estimated GFR (MDRD) > 60.0 ml/min Glucose 160 H (74-106) mg/dL POC Glucose 215 H 189 H (70-99) mg/dL Calcium 7.8 L (8.5-10.1) mg/dL Magnesium (1.8-2.4) mg/dL Total Bilirubin 0.4 (0.2-1.0) mg/dL AST 91 H (15-37) IU/L ALT 40 (14-63) IU/L Alkaline Phosphatase 52 (46-116) U/L Troponin I < 0.050 (0.000-0.056) ng/mL Total Protein 5.5 L (6.4-8.2) g/dL Albumin 2.5 L (3.4-5.0) g/dL Globulin 3.0 (2.6-4.0) g/dL Albumin/Globulin Ratio 0.8 L (0.9-1.6) Vancomycin Trough (5.0-10.0) ug/mL 10/18/21 10/18/21 10/18/21 Range/Units 03:08 05:55 05:55 WBC 9.22 (4.0-11.0) K/uL RBC 4.46 L (4.50-5.90) M/uL Hgb 13.7 (13.0-17.0) g/dL Hct 41.8 (38.0-50.0) % MCV 93.7 (80.0-98.0) fL MCH 30.7 (27.0-32.0) pg MCHC 32.8 (31.0-37.0) g/dL RDW Std Deviation 48.8 (28.0-62.0) fl RDW Coeff of Dennis 14 (11.0-15.0) % Plt Count 146 L (150-400) K/uL MPV 11.90 (7.40-12.00) fL Neut % (Auto) 60.3 (48.0-80.0) % Lymph % (Auto) 31.7 (16.0-40.0) % [place] % (Auto) 7.7 (0.0-15.0) % Eos % (Auto) 0.2 (0.0-7.0) % Baso % (Auto) 0.1 (0.0-1.5) % Neut # (Auto) 5.6 (1.4-5.7) K/uL Lymph # (Auto) 2.9 H (0.6-2.4) K/uL [place] # (Auto) 0.7 (0.0-0.8) K/uL Eos # (Auto) 0.0 (0.0-0.7) K/uL Baso # (Auto) 0.0 (0.0-0.1) K/uL Nucleated RBC % 0.0 /100WBC Nucleated RBCs # 0 K/uL Sodium 139 (136-148) mmol/L Potassium 4.0 (3.5-5.1) mmol/L Chloride 103 (98-107) mmol/L Carbon Dioxide 27.3 (21.0-32.0) mmol/L BUN 20 H (7.0-18.0) mg/dL Creatinine 0.8 (0.8-1.3) mg/dL Est Cr Clr Drug Dosing 106.81 mL/min Estimated GFR (MDRD) > 60.0 ml/min Glucose 199 H (74-106) mg/dL POC Glucose (70-99) mg/dL Calcium 8.2 L (8.5-10.1) mg/dL Magnesium 1.6 L (1.8-2.4) mg/dL Total Bilirubin 0.5 (0.2-1.0) mg/dL AST 64 H (15-37) IU/L ALT 32 (14-63) IU/L Alkaline Phosphatase 56 (46-116) U/L Troponin I (0.000-0.056) ng/mL Total Protein 5.9 L (6.4-8.2) g/dL Albumin 2.5 L (3.4-5.0) g/dL Globulin 3.4 (2.6-4.0) g/dL Albumin/Globulin Ratio 0.7 L (0.9-1.6) Vancomycin Trough 11.5 H (5.0-10.0) ug/mL 10/18/21 Range/Units 06:26 WBC (4.0-11.0) K/uL RBC (4.50-5.90) M/uL Hgb (13.0-17.0) g/dL Hct (38.0-50.0) % MCV (80.0-98.0) fL MCH (27.0-32.0) pg MCHC (31.0-37.0) g/dL RDW Std Deviation (28.0-62.0) fl RDW Coeff of Dennis (11.0-15.0) % Plt Count (150-400) K/uL MPV (7.40-12.00) fL Neut % (Auto) (48.0-80.0) % Lymph % (Auto) (16.0-40.0) % [place] % (Auto) (0.0-15.0) % Eos % (Auto) (0.0-7.0) % Baso % (Auto) (0.0-1.5) % Neut # (Auto) (1.4-5.7) K/uL Lymph # (Auto) (0.6-2.4) K/uL [place] # (Auto) (0.0-0.8) K/uL Eos # (Auto) (0.0-0.7) K/uL Baso # (Auto) (0.0-0.1) K/uL Nucleated RBC % /100WBC Nucleated RBCs # K/uL Sodium (136-148) mmol/L Potassium (3.5-5.1) mmol/L Chloride (98-107) mmol/L Carbon Dioxide (21.0-32.0) mmol/L BUN (7.0-18.0) mg/dL Creatinine (0.8-1.3) mg/dL Est Cr Clr Drug Dosing mL/min Estimated GFR (MDRD) ml/min Glucose (74-106) mg/dL POC Glucose 199 H (70-99) mg/dL Calcium (8.5-10.1) mg/dL Magnesium (1.8-2.4) mg/dL Total Bilirubin (0.2-1.0) mg/dL AST (15-37) IU/L ALT (14-63) IU/L Alkaline Phosphatase (46-116) U/L Troponin I (0.000-0.056) ng/mL Total Protein (6.4-8.2) g/dL Albumin (3.4-5.0) g/dL Globulin (2.6-4.0) g/dL Albumin/Globulin Ratio (0.9-1.6) Vancomycin Trough (5.0-10.0) ug/mL [place] Results Last 24 Hours: Microbiology 10/16/21 01:17 Aerobic Blood Culture - Preliminary Blood - Venous - Lab Draw NO GROWTH AFTER 2 DAYS Anaerobic Blood Culture - Preliminary NO GROWTH AFTER 2 DAYS 10/16/21 00:15 Aerobic Blood Culture - Preliminary Blood - Venous NO GROWTH AFTER 2 DAYS Anaerobic Blood Culture - Preliminary Med Orders - Current: Current Medications Hydrocodone Bitart/Acetaminophen (Acetaminophen/Hydrocodone 325-10 Mg Tab) 1 tab PO Q4H PRN PRN Reason: Pain Last Admin: 10/18/21 08:22 Dose: 1 tab Documented by: Albuterol/Ipratropium (Albuterol/Ipratropium 4 Gm Inhalation [place]) 0 gm INH Q4H PRN PRN Reason: Dyspnea Amiodarone HCl (Amiodarone 200 Mg Tab) 200 mg PO DAILY [facility] Last Admin: 10/18/21 08:22 Dose: 200 mg Documented by: Apixaban (Apixaban 5 Mg Tab) 5 mg PO BID [facility] Last Admin: 10/18/21 08:23 Dose: 5 mg Documented by: Atorvastatin Calcium (Atorvastatin 40 Mg Tab) 40 mg PO BEDTIME [facility] Last Admin: 10/17/21 21:02 Dose: 40 mg Documented by: Clopidogrel Bisulfate (Clopidogrel 75 Mg Tab) 75 mg PO DAILY [facility] Last Admin: 10/18/21 08:22 Dose: 75 mg Documented by: Dexamethasone (Dexamethasone 4 Mg Tab) 6 mg PO DAILY [facility] Last Admin: 10/18/21 08:23 Dose: 6 mg Documented by: Dextrose/Water (50% Dextrose In Water 50 Ml Syringe) 50 ml IVPUSH ASDIRECTED PRN PRN Reason: Hypoglycemia Duloxetine HCl (Duloxetine 60 Mg Cap) 60 mg PO DAILY [facility] Last Admin: 10/18/21 08:22 Dose: 60 mg Documented by: Famotidine (Famotidine 20 Mg Tab) 20 mg PO BID PRN PRN Reason: Other Last Admin: 10/16/21 17:07 Dose: 20 mg Documented by: Glucagon (Glucagon,Human Recombinant 1 Mg Vial) 1 mg IM ASDIRECTED PRN PRN Reason: Hypoglycemia Remdesivir 100 mg/ Sodium (Chloride) 100 mls @ 100 mls/hr IV Q24H [facility] Stop: 10/20/21 04:59 Last Admin: 10/18/21 03:37 Dose: 100 mls/hr Documented by: Piperacillin Sod/Tazobactam (Sod 3.375 gm/ Sodium Chloride) 50 mls @ 100 mls/hr IV Q6H [facility] Last Admin: 10/18/21 08:21 Dose: 100 mls/hr Documented by: Vancomycin HCl 1.75 gm/ Premix 350 mls @ 200 mls/hr IV Q12H [facility] Last Admin: 10/18/21 05:46 Dose: 200 mls/hr Documented by: Magnesium Sulfate 4 gm/ Premix 100 mls @ 50 mls/hr IV ONETIME ONE Stop: 10/18/21 10:25 Insulin Aspart (Insulin Aspart 100 Units/Ml 3 Ml Pen) 0 unit SUBCUT TIDAC [facility]; Protocol Last Admin: 10/18/21 08:19 Dose: 2 units Documented by: Insulin Glargine (Insulin Glargine,Human Rec. Analog 100 Units/Ml 3 Ml Pen) 16 units SUBCUT DAILY [facility] Last Admin: 10/18/21 08:23 Dose: 16 units Documented by: Metoprolol Succinate (Metoprolol Succinate 25 Mg Tab.Er) 75 mg PO BEDTIME [facility] Last Admin: 10/17/21 21:03 Dose: 75 mg Documented by: Pantoprazole Sodium (Pantoprazole 40 Mg Tab.Cr) 40 mg PO ACBREAKFAST [facility] Last Admin: 10/18/21 08:21 Dose: 40 mg Documented by: Pregabalin (Pregabalin 200 Mg Cap) 200 mg PO TID [facility] Last Admin: 10/18/21 05:46 Dose: 200 mg Documented by: Quetiapine Fumarate (Quetiapine 100 Mg Tab) 200 mg PO BEDTIME [facility] Last Admin: 10/17/21 21:01 Dose: 200 mg Documented by: Trazodone HCl (Trazodone 50 Mg Tab) 50 mg PO BEDTIME [facility] Last Admin: 10/17/21 21:02 Dose: 50 mg Documented by: Vancomycin HCl (Pharmacy To Dose - Vancomycin) 1 dose .XX DAILY [facility] Last Admin: 10/17/21 10:51 Dose: Not Given Documented by: Venlafaxine HCl (Venlafaxine 75 Mg Cap.Er) 75 mg PO DAILY [facility] Last Admin: 10/18/21 08:23 Dose: 75 mg Documented by: Discontinued Medications Dexamethasone (Dexamethasone 10 Mg/Ml Sdv) 6 mg IVPUSH ONETIME ONE Stop: 10/16/21 01:44 Last Admin: 10/16/21 01:54 Dose: 6 mg Documented by: Dextrose/Water (50% Dextrose In Water 50 Ml Syringe) 50 ml IVPUSH ASDIRECTED PRN PRN Reason: Hypoglycemia Fentanyl (Fentanyl 50 Mcg/Ml Sdv) 50 mcg IVPUSH ONETIME ONE Stop: 10/16/21 00:30 Last Admin: 10/16/21 00:55 Dose: 50 mcg Documented by: Glucagon (Glucagon,Human Recombinant 1 Mg Vial) 1 mg IM ASDIRECTED PRN PRN Reason: Hypoglycemia Sodium Chloride (Normal Saline) 1,000 mls @ 999 mls/hr IV .Bolus ONE Stop: 10/16/21 01:26 Last Admin: 10/16/21 00:59 Dose: 999 mls/hr Documented by: Fentanyl Citrate 2,500 mcg/ (Premix) 250 mls @ 2.5 mls/hr IV TITRATE PRN; Protocol PRN Reason: Sedation Last Titration: 10/16/21 08:36 Dose: 75 mcg/hr, 7.5 mls/hr Documented by: Sodium Chloride (Normal Saline) 1,000 mls @ 999 mls/hr IV .Bolus ONE Stop: 10/16/21 01:28 Last Admin: 10/16/21 01:00 Dose: 999 mls/hr Documented by: Sodium Chloride (Normal Saline) 1,000 mls @ 999 mls/hr IV .Bolus ONE Stop: 10/16/21 01:28 Last Admin: 10/16/21 01:29 Dose: 999 mls/hr Documented by: Cefepime HCl 2 gm/ Premix 50 mls @ 100 mls/hr IV ONETIME ONE Stop: 10/16/21 00:58 Last Admin: 10/16/21 01:12 Dose: 100 mls/hr Documented by: Fentanyl Citrate (Fentanyl 2500 Mcg In Ns 250 Ml (10 Mcg/Ml)) Confirm Administered Dose 250 mls @ as directed .ROUTE .STK-MED ONE Stop: 10/16/21 00:45 Last Admin: 10/16/21 01:07 Dose: Not Given Documented by: Vancomycin HCl 2 gm/ Premix 400 mls @ 200 mls/hr IV NOW ONE Stop: 10/16/21 02:59 Last Admin: 10/16/21 04:20 Dose: 200 mls/hr Documented by: Norepinephrine Bitartrate (Norepinephr-0.9% Nacl 4 Mg/250) 4 mg in 250 mls @ 7.5 mls/hr IV TITRATE [facility]; Protocol Last Titration: 10/16/21 08:18 Dose: 4 mcg/min, 15 mls/hr Documented by: Remdesivir 200 mg/ Sodium (Chloride) 250 mls @ 250 mls/hr IV ONETIME ONE Stop: 10/16/21 01:45 Last Admin: 10/16/21 03:06 Dose: 250 mls/hr Documented by: Sodium Chloride (Normal Saline) 1,000 mls @ 100 mls/hr IV .Bolus ONE Stop: 10/16/21 12:37 Last Admin: 10/16/21 03:47 Dose: 100 mls/hr Documented by: Vancomycin HCl 1.5 gm/ Premix 300 mls @ 200 mls/hr IV Q12H [facility] Last Admin: 10/18/21 04:19 Dose: Not Given Documented by: Midazolam HCl 50 mg/ Sodium (Chloride) 50 mls @ 0.5 mls/hr IV TITRATE [facility]; Protocol Last Admin: 10/16/21 08:56 Dose: 0.5 mg/hr, 0.5 mls/hr Documented by: Norepinephrine Bitartrate (Norepinephr-0.9% Nacl 4 Mg/250) 4 mg in 250 mls @ 7.5 mls/hr IV TITRATE [facility]; Protocol Last Admin: 10/16/21 08:54 Dose: 2 mcg/min, 7.5 mls/hr Documented by: Cefepime HCl 2 gm/ Premix 50 mls @ 100 mls/hr IV ONETIME ONE Stop: 10/16/21 12:29 Last Admin: 10/16/21 12:19 Dose: 100 mls/hr Documented by: Metoprolol Tartrate 5 mg/ (Sodium Chloride) 55 mls @ 100 mls/hr IV ONETIME ONE Stop: 10/16/21 12:55 Last Admin: 10/16/21 12:40 Dose: Not Given Documented by: Piperacillin Sod/Tazobactam (Sod 3.375 gm/ Sodium Chloride) 50 mls @ 100 mls/hr IV Q8H [facility] Last Admin: 10/17/21 08:25 Dose: 100 mls/hr Documented by: Iopamidol (Iopamidol 755 Mg/Ml 500 Ml Multipack Bottle) 75 ml IVPUSH ONETIME STA Stop: 10/16/21 03:17 Last Admin: 10/16/21 03:17 Dose: 75 ml Documented by: Ketamine HCl (Ketamine 500 Mg/10 Ml Mdv) Confirm Administered Dose 500 mg .ROUTE .STK-MED ONE Stop: 10/16/21 08:12 Last Admin: 10/16/21 08:19 Dose: Not Given Documented by: Ketamine HCl (Ketamine 500 Mg/10 Ml Mdv) 50 mg IV ONETIME ONE Stop: 10/16/21 08:17 Last Admin: 10/16/21 08:20 Dose: 50 mg Documented by: Ketorolac Tromethamine (Ketorolac 30 Mg/Ml Sdv) 30 mg IVPUSH ONETIME ONE Stop: 10/16/21 14:17 Last Admin: 10/16/21 15:42 Dose: 30 mg Documented by: Metoprolol Succinate (Metoprolol Succinate 50 Mg Tab.Er) 50 mg PO ONETIME ONE Stop: 10/16/21 12:24 Last Admin: 10/16/21 12:41 Dose: 50 mg Documented by: Metoprolol Succinate (Metoprolol Succinate 50 Mg Tab.Er) Confirm Administered Dose 50 mg .ROUTE .STK-MED ONE Stop: 10/16/21 12:28 Last Admin: 10/16/21 12:42 Dose: Not Given Documented by: Metoprolol Tartrate (Metoprolol Tartrate 5 Mg/5 Ml Sdv) Confirm Administered Dose 5 mg .ROUTE .STK-MED ONE Stop: 10/16/21 12:36 Last Admin: 10/16/21 12:59 Dose: Not Given Documented by: Midazolam HCl (Midazolam 1 Mg/Ml 2 Ml Sdv) 2 mg IVPUSH ONETIME ONE Stop: 10/16/21 08:34 Last Admin: 10/16/21 08:36 Dose: 2 mg Documented by: Midazolam HCl (Midazolam 1 Mg/Ml 2 Ml Sdv) Confirm Administered Dose 2 mg .ROUTE .STK-MED ONE Stop: 10/16/21 08:35 Last Admin: 10/16/21 08:44 Dose: Not Given Documented by: Non-Formulary Medication (Ticagrelor) 90 mg PO BID [facility] Last Admin: 10/17/21 21:52 Dose: Not Given Documented by: - Exam Quality Assessment: Supplemental Oxygen (2 L NC), Central Line/PICC, DVT Prophylaxis Urinary Catheter Total Time: 0Days 1Hours General: Alert, Oriented, Cooperative, No Acute Distress Neck: Other (cenral line to L neck, intact, dressing C/D/I) Lungs: Normal Respiratory Effort, Decreased Breath Sounds, Crackles (R lung genao.). No: Wheezing Cardiovascular: Regular Rate, Irregular Rhythm GI/Abdominal Exam: Normal Bowel Sounds, Soft, Non-Tender Extremities: Normal Inspection, Normal Range of Motion, Non-Tender, No Pedal Edema Wound/Incisions: Healing Well Neurological: No New Focal Deficit Psy/Mental Status: Alert, Normal Affect, Normal Mood - Patient Data Lab Results Last 24 hrs: Laboratory Results - last 24 hr 10/17/21 10/17/21 10/17/21 Range/Units 06:40 11:40 17:02 WBC (4.0-11.0) K/uL RBC (4.50-5.90) M/uL Hgb (13.0-17.0) g/dL Hct (38.0-50.0) % MCV (80.0-98.0) fL MCH (27.0-32.0) pg MCHC (31.0-37.0) g/dL RDW Std Deviation (28.0-62.0) fl RDW Coeff of Dennis (11.0-15.0) % Plt Count (150-400) K/uL MPV (7.40-12.00) fL Neut % (Auto) (48.0-80.0) % Lymph % (Auto) (16.0-40.0) % [place] % (Auto) (0.0-15.0) % Eos % (Auto) (0.0-7.0) % Baso % (Auto) (0.0-1.5) % Neut # (Auto) (1.4-5.7) K/uL Lymph # (Auto) (0.6-2.4) K/uL [place] # (Auto) (0.0-0.8) K/uL Eos # (Auto) (0.0-0.7) K/uL Baso # (Auto) (0.0-0.1) K/uL Nucleated RBC % /100WBC Nucleated RBCs # K/uL Sodium 139 (136-148) mmol/L Potassium 4.1 (3.5-5.1) mmol/L Chloride 105 (98-107) mmol/L Carbon Dioxide 26.8 (21.0-32.0) mmol/L BUN 21 H (7.0-18.0) mg/dL Creatinine 0.8 (0.8-1.3) mg/dL Est Cr Clr Drug Dosing 106.81 mL/min Estimated GFR (MDRD) > 60.0 ml/min Glucose 160 H (74-106) mg/dL POC Glucose 215 H 189 H (70-99) mg/dL Calcium 7.8 L (8.5-10.1) mg/dL Magnesium (1.8-2.4) mg/dL Total Bilirubin 0.4 (0.2-1.0) mg/dL AST 91 H (15-37) IU/L ALT 40 (14-63) IU/L Alkaline Phosphatase 52 (46-116) U/L Troponin I < 0.050 (0.000-0.056) ng/mL Total Protein 5.5 L (6.4-8.2) g/dL Albumin 2.5 L (3.4-5.0) g/dL Globulin 3.0 (2.6-4.0) g/dL Albumin/Globulin Ratio 0.8 L (0.9-1.6) Vancomycin Trough (5.0-10.0) ug/mL 10/18/21 10/18/21 10/18/21 Range/Units 03:08 05:55 05:55 WBC 9.22 (4.0-11.0) K/uL RBC 4.46 L (4.50-5.90) M/uL Hgb 13.7 (13.0-17.0) g/dL Hct 41.8 (38.0-50.0) % MCV 93.7 (80.0-98.0) fL MCH 30.7 (27.0-32.0) pg MCHC 32.8 (31.0-37.0) g/dL RDW Std Deviation 48.8 (28.0-62.0) fl RDW Coeff of Dennis 14 (11.0-15.0) % Plt Count 146 L (150-400) K/uL MPV 11.90 (7.40-12.00) fL Neut % (Auto) 60.3 (48.0-80.0) % Lymph % (Auto) 31.7 (16.0-40.0) % [place] % (Auto) 7.7 (0.0-15.0) % Eos % (Auto) 0.2 (0.0-7.0) % Baso % (Auto) 0.1 (0.0-1.5) % Neut # (Auto) 5.6 (1.4-5.7) K/uL Lymph # (Auto) 2.9 H (0.6-2.4) K/uL [place] # (Auto) 0.7 (0.0-0.8) K/uL Eos # (Auto) 0.0 (0.0-0.7) K/uL Baso # (Auto) 0.0 (0.0-0.1) K/uL Nucleated RBC % 0.0 /100WBC Nucleated RBCs # 0 K/uL Sodium 139 (136-148) mmol/L Potassium 4.0 (3.5-5.1) mmol/L Chloride 103 (98-107) mmol/L Carbon Dioxide 27.3 (21.0-32.0) mmol/L BUN 20 H (7.0-18.0) mg/dL Creatinine 0.8 (0.8-1.3) mg/dL Est Cr Clr Drug Dosing 106.81 mL/min Estimated GFR (MDRD) > 60.0 ml/min Glucose 199 H (74-106) mg/dL POC Glucose (70-99) mg/dL Calcium 8.2 L (8.5-10.1) mg/dL Magnesium 1.6 L (1.8-2.4) mg/dL Total Bilirubin 0.5 (0.2-1.0) mg/dL AST 64 H (15-37) IU/L ALT 32 (14-63) IU/L Alkaline Phosphatase 56 (46-116) U/L Troponin I (0.000-0.056) ng/mL Total Protein 5.9 L (6.4-8.2) g/dL Albumin 2.5 L (3.4-5.0) g/dL Globulin 3.4 (2.6-4.0) g/dL Albumin/Globulin Ratio 0.7 L (0.9-1.6) Vancomycin Trough 11.5 H (5.0-10.0) ug/mL 10/18/21 Range/Units 06:26 WBC (4.0-11.0) K/uL RBC (4.50-5.90) M/uL Hgb (13.0-17.0) g/dL Hct (38.0-50.0) % MCV (80.0-98.0) fL MCH (27.0-32.0) pg MCHC (31.0-37.0) g/dL RDW Std Deviation (28.0-62.0) fl RDW Coeff of Dennis (11.0-15.0) % Plt Count (150-400) K/uL MPV (7.40-12.00) fL Neut % (Auto) (48.0-80.0) % Lymph % (Auto) (16.0-40.0) % [place] % (Auto) (0.0-15.0) % Eos % (Auto) (0.0-7.0) % Baso % (Auto) (0.0-1.5) % Neut # (Auto) (1.4-5.7) K/uL Lymph # (Auto) (0.6-2.4) K/uL [place] # (Auto) (0.0-0.8) K/uL Eos # (Auto) (0.0-0.7) K/uL Baso # (Auto) (0.0-0.1) K/uL Nucleated RBC % /100WBC Nucleated RBCs # K/uL Sodium (136-148) mmol/L Potassium (3.5-5.1) mmol/L Chloride (98-107) mmol/L Carbon Dioxide (21.0-32.0) mmol/L BUN (7.0-18.0) mg/dL Creatinine (0.8-1.3) mg/dL Est Cr Clr Drug Dosing mL/min Estimated GFR (MDRD) ml/min Glucose (74-106) mg/dL POC Glucose 199 H (70-99) mg/dL Calcium (8.5-10.1) mg/dL Magnesium (1.8-2.4) mg/dL Total Bilirubin (0.2-1.0) mg/dL AST (15-37) IU/L ALT (14-63) IU/L Alkaline Phosphatase (46-116) U/L Troponin I (0.000-0.056) ng/mL Total Protein (6.4-8.2) g/dL Albumin (3.4-5.0) g/dL Globulin (2.6-4.0) g/dL Albumin/Globulin Ratio (0.9-1.6) Vancomycin Trough (5.0-10.0) ug/mL Result Diagrams: 10/18/21 05:55 10/18/21 05:55 [place] Results Last 24 hrs: Microbiology 10/16/21 01:17 Aerobic Blood Culture - Preliminary Blood - Venous - Lab Draw NO GROWTH AFTER 2 DAYS Anaerobic Blood Culture - Preliminary NO GROWTH AFTER 2 DAYS 10/16/21 00:15 Aerobic Blood Culture - Preliminary Blood - Venous NO GROWTH AFTER 2 DAYS Anaerobic Blood Culture - Preliminary Sepsis Event Note - Evaluation Sepsis Screening Result: No Definite Risk - Focused Exam Vital Signs: Vital Signs Temp Pulse Pulse Resp BP BP Pulse Ox 10/18/21 06:02 66 96 10/18/21 04:00 96.9 F 79 18 100/53 L 96 10/18/21 00:18 96.9 F 63 20 90/63 96 10/17/21 21:03 98 116/71 - Problem List & Annotations (1) Acute respiratory failure with hypoxia SNOMED Code(s): 38142117, 211400062 Code(s): J96.01 - ACUTE RESPIRATORY FAILURE WITH HYPOXIA Status: Acute Current Visit: Yes (2) Bacteremia SNOMED Code(s): 2137110 Code(s): R78.81 - BACTEREMIA Status: Acute Current Visit: Yes (3) COVID-19 SNOMED Code(s): 342212325 Code(s): U07.1 - COVID-19 Status: Acute Priority: High Current Visit: Yes Onset Date: ~10/16/21 Annotation/Comment:: discussed protocol treatment and emergancy use authorization use and he wholly agrees. discussed covid concerns. (4) Cardiac arrest SNOMED Code(s): 761473614 Code(s): I46.9 - CARDIAC ARREST, CAUSE UNSPECIFIED Status: Resolved Current Visit: Yes (5) Hypertension SNOMED Code(s): 78712706 Code(s): I10 - ESSENTIAL (PRIMARY) HYPERTENSION Status: Chronic Current Visit: No (6) Old cerebrovascular accident without late effect SNOMED Code(s): 734547578 Code(s): Z86.73 - PRSNL HX OF TIA (TIA), AND CEREB INFRC W/O RESID DEFICITS Status: Chronic Current Visit: No (7) Afib SNOMED Code(s): 82087250 Code(s): I48.91 - UNSPECIFIED ATRIAL FIBRILLATION Status: Chronic Current Visit: No Qualifiers: Atrial fibrillation type: paroxysmal Qualified Code(s): I48.0 - Paroxysmal atrial fibrillation (8) Chronic anticoagulation SNOMED Code(s): 729856474 Code(s): Z79.01 - FDC (CURRENT) USE OF ANTICOAGULANTS Status: Chronic Priority: High Current Visit: No (9) Chronic neck pain SNOMED Code(s): 6397417669366 Code(s): M54.2 - CERVICALGIA; G89.29 - OTHER CHRONIC PAIN Status: Chronic Current Visit: No (10) Diabetes mellitus type 2, controlled SNOMED Code(s): 64190439, 543318150 Code(s): E11.9 - TYPE 2 DIABETES MELLITUS WITHOUT COMPLICATIONS Status: Chronic Priority: High Current Visit: No Qualifiers: Diabetes mellitus medical terminologist insulin use: with medical terminologist use Diabetes mellitus complication status: without complication Qualified Code(s): E11.9 - Type 2 diabetes mellitus without complications; Z79.4 - medical terminologist (current) use of insulin (11) History of paresthesia SNOMED Code(s): 967115490 Code(s): Z87.898 - PERSONAL HISTORY OF OTHER SPECIFIED CONDITIONS Status: Chronic Current Visit: No - Problem List Review Problem List Initiated/Reviewed/Updated: Yes - My Orders Last 24 Hours: My Active Orders 10/17/21 08:30 Intake and Output [RC] QSHIFT 10/17/21 08:31 IS (RT) [RT Incentive Spirometry] [RC] Q1HWA RT Post Treatment Assessment [RC] Click to Edit RT Pre-Treatment Assessment [RC] Click to Edit Albuterol/Ipratropium [Combivent Respimat] See Dose Instructions INH Q4H PRN 10/17/21 10:41 Central Venous Line Discontinue [OM.PC] Routine 10/18/21 07:30 Pantoprazole [ProTONIX] 40 mg PO ACBREAKFAST 10/18/21 08:26 Magnesium Sulfate/Water [Magnesium Sulfate in Water 4 GM/100 ML] 4 gm Premix Bag 1 bag IV ONETIME 10/19/21 05:11 CBC WITH AUTO DIFF [HEME] AM COMPREHENSIVE METABOLIC PN,CMP [CHEM] AM MAGNESIUM [CHEM] AM 10/20/21 05:11 CBC WITH AUTO DIFF [HEME] AM COMPREHENSIVE METABOLIC PN,CMP [CHEM] AM MAGNESIUM [CHEM] AM - Plan Plan:: This 61-year-old male admitted with acute hypoxic respiratory failure initially intubated now extubated for COVID-19 1. Acute hypoxic respiratory failure status post extubation/COVID-19 Continue dexamethasone daily Continue remdesivir, monitor LFTs Continue Combivent Encourage I-S and proning discussed this with patient at length patient verbalized understanding Tessalon Perles as needed cough 2. Bacteremia 1 out of 4 blood cultures positive for gram-positive cocci in clusters continue vancomycin Repeat blood culture pending Possible contaminated sample as 1/4 bottles, will await PAYAM I/O removed yesterday Central line remains in, unable to obtain peripheral line yesterday. Will attempt today Continue Vancomycin and Zosyn 3. History CVA, A. fib on chronic anticoagulation Continue home medications Monitor on telemetry Continue anticoagulation with Eliquis 4. DM type II Monitor blood sugars 3 times daily AC NovoLog sliding scale Monitor blood sugars closely with steroid use ADA diet 5. Chronic neck, back and leg pain - Continue Opioids, pain stable. VTE prophylaxis: Eliquis GI prophylaxis: Protonix CODE STATUS: Full code Dispo: 2 to 3 days pending improvement.
--- NOTE | 2021-10-18 11:47 | PCM.DCSUM1 ---
Discharge Summary - Hospital Course Brief History: 61 year old male admitted after found unresp. with agonal resp. not responding top narcan and intubated on scene. l reported found unresponsive by relative after being seen 20 minutes prev. 4 day hx from patient of [place] and increased back and neck pain a nd general malaise. nauseated x one . no chest pain but a little sob . layed down after taking norco for pain with nyquil. in e.r extensive eval for possible ami,ischemia cva and or infection,p.e. negative. patient woke up and was extubated as abgs were doing very well see reports. since then still feels chilled and achey in back and all over. oriented x 4 and no weakness and denies any chest pain or syncopal sensation . no hx of recent syncope or near syncope and no symptoms of increased palp although rate high and b.p flucuating. prev hx of cva x 3 on brintilla and elaquis. hx of cad s/p stents with need for another he states. hx of dm 2. hx of copd and smoking still . hx of chronic renal stones . hx of mjh use ,denies any hx of mneth ,cocaine or other illicit drug use. takes norco for chronic back pain and failed neck and back surgery. uses 2-3 x day .no prev overdose and does not drink anymore for 20 years. no surgeries:but hx of complete bowel obstruction. covid vaccinated except no booster . flu vaccinated. seperated and chronic anxiety /depression. checks b.s. no recent changes in meds . covid screen pos. Diagnosis: Stroke: No - Discharge Data Discharge Date: 10/18/21 Discharge Disposition: Home, W Home Health Agency 06 Condition: - Referral to Home Health Date of Face to Face Encounter: 10/18/21 Reason for Homebound Status: Patient is homebound needing assistance from family or caregiver to drive him to appointments or to leave the house due to chronic back and leg pain and unsteady gait and chronic use of narcotics. Primary Care Physician: PCP None Skilled Need: Patient is in need long term care to help manage medications and monitor administration. Patient would also benefit from PT to evaluate and treat due to chronic pain and unsteady gait. - Discharge Diagnosis/Problem(s) (1) Acute respiratory failure with hypoxia SNOMED Code(s): 58035017, 807184161 ICD Code: J96.01 - ACUTE RESPIRATORY FAILURE WITH HYPOXIA Status: Acute Current Visit: Yes (2) Bacteremia SNOMED Code(s): 7069181 ICD Code: R78.81 - BACTEREMIA Status: Acute Current Visit: Yes (3) COVID-19 SNOMED Code(s): 944383143 ICD Code: U07.1 - COVID-19 Status: Acute Priority: High Current Visit: Yes Onset Date: ~10/16/21 Problem Details: discussed protocol treatment and emergancy use authorization use and he wholly agrees. discussed covid concerns. (4) Hypertension SNOMED Code(s): 54558775 ICD Code: I10 - ESSENTIAL (PRIMARY) HYPERTENSION Status: Chronic Current Visit: No (5) Old cerebrovascular accident without late effect SNOMED Code(s): 914580595 ICD Code: Z86.73 - PRSNL HX OF TIA (TIA), AND CEREB INFRC W/O RESID DEFICITS Status: Chronic Current Visit: No (6) Afib SNOMED Code(s): 47190544 ICD Code: I48.91 - UNSPECIFIED ATRIAL FIBRILLATION Status: Chronic Current Visit: No Qualifiers: Atrial fibrillation type: paroxysmal Qualified Code(s): I48.0 - Paroxysmal atrial fibrillation (7) Chronic anticoagulation SNOMED Code(s): 863564838 ICD Code: Z79.01 - CONTACT CENTER REPRESENTATIVE (CURRENT) USE OF ANTICOAGULANTS Status: Chronic Priority: High Current Visit: No (8) Chronic neck pain SNOMED Code(s): 3274395684421 ICD Code: M54.2 - CERVICALGIA; G89.29 - OTHER CHRONIC PAIN Status: Chronic Current Visit: No (9) Diabetes mellitus type 2, controlled SNOMED Code(s): 07563264, 453307422 ICD Code: E11.9 - TYPE 2 DIABETES MELLITUS WITHOUT COMPLICATIONS Status: Chronic Priority: High Current Visit: No Qualifiers: Diabetes mellitus half-way insulin use: with ad terminal makeup operator use Diabetes mellitus complication status: without complication Qualified Code(s): E11.9 - Type 2 diabetes mellitus without complications; Z79.4 - equipment 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 fib Chronic anticoagulation Chronic neck pain DM type II Paresthesia COPD/emphysema Rustam was admitted secondary to being found unresponsive acute hypoxic respiratory failure. He was initially intubated in the ER but then soon extubated as he woke up. Patient was noted to be Covid positive. He was started on dexamethasone as well as remdesivir. Patient is not requiring any oxygen at this time. There is intermittent dipping to 90 and 89 patient does have history of COPD and emphysema. Patient blood cultures 1 out of 4 returned positive but this is likely a contaminated sample as patient's leukocytosis has improved and patient is afebrile. Patient very eager to go home today. Discussed with Dr. Araujo, who feels comfortable with discharge as well. Patient will continue taking dexamethasone 6 mg p.o. for total of 10 days. Combivent inhaler also sent. We will give metoprolol tartrate 50 mg twice daily and replacement of his 75 mg succinate dose. These prescriptions have been sent to his pharmacy. He was counseled on med management and limiting use of methamphetamines with his narcotics. Family is concerned about overuse of medications. He will be discharged home with home health today to help monitor administration and medication management. Patient otherwise doing well. He is very eager for discharge. Will discharge home today follow-up with PCP in 7 to 10 days. Continue to self isolate for total of 10 days from test date which is 10/16/2021. Encouraged to receive Covid booster when feeling better. Return to the ER or clinic sooner if concerns should arise. Monitor oxygen saturations at home. - Patient Instructions Diet: Heart Healthy Diet Activity: No Strenuous Activities Driving: Do Not Drive Showering/Bathing: May Shower Notify Provider of: Fever, Increased Pain, Swelling and Redness, Drainage, Nausea and/or Vomiting Other/Special Instructions: Change Metoprolol to 50 mg twice daily from once daily dosing due to blood pressure. Monitor oxygenation saturations at home. Return to the ER or clinic if concerns with breathing should arise. Continue to isolate for 7 days from positive test date which was 10/16/2021. Mask in public places when out of isolation. Encouraged to get Covid booster when feeling improved. - Discharge Plan *PRESCRIPTION DRUG MONITORING PROGRAM REVIEWED*: Not Applicable *COPY OF PRESCRIPTION DRUG MONITORING REPORT IN PATIENT ALEAH: Not Applicable Prescriptions/Med Rec: Albuterol/Ipratropium [Combivent Respimat] 1 puff INH Q4H PRN #1 inhaler PRN Reason: Dyspnea dexAMETHasone [Decadron] 6 mg PO DAILY #7 tablet Metoprolol Tartrate [Lopressor] 50 mg PO BID #60 tablet Home Medications: Home Meds Apixaban [Eliquis] 5 mg PO BID 04/20/19 [History] DULoxetine HCl [Duloxetine HCl] 1 tab PO DAILY 04/20/19 [History] atorvaSTATin [Lipitor] 40 mg PO BEDTIME 08/07/19 [History] Ranitidine [Zantac] 150 mg PO BID PRN 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/05/19 [History] Amiodarone [Cordarone] 200 mg PO DAILY 09/29/19 [History] Insulin Glargine,Hum.Rec.Anlog [Basaglar Kwikpen U-100] 16 unit SQ DAILY 07/10 [History] Hydrocodone/Acetaminophen [HYDROcodone-Acetaminophen 10-325 MG] 1 tab PO Q4H PRN 08/16/21 [History] QUEtiapine [SEROquel] 200 mg PO BEDTIME 08/16/21 [History] Ticagrelor [Brilinta] 90 mg PO BID 08/16/21 [History] Venlafaxine HCl [Venlafaxine ER] 75 mg PO DAILY 08/16/21 [History] lisinopriL [Lisinopril] 5 mg PO DAILY 08/16/21 [History] Alum Helix/Mag Helix/Simeth XS [Mag-Al Plus XS] 30 ml PO Q6H #60 cup 08/17/21 [Rx] Omeprazole 20 mg PO ACBREAKFAST #30 cap.sr 08/17/21 [Rx] Pregabalin [Lyrica] 200 mg PO TID 08/26/21 [History] metFORMIN HCl [Metformin HCl ER] 500 mg PO DAILY 08/26/21 [History] traZODone 50 mg PO BEDTIME 08/26/21 [History] Albuterol/Ipratropium [Combivent Respimat] 1 puff INH Q4H PRN #1 inhaler 10/18/21 [Rx] Metoprolol Tartrate [Lopressor] 50 mg PO BID #60 tablet 10/18/21 [Rx] dexAMETHasone [Decadron] 6 mg PO DAILY #7 tablet 10/18/21 [Rx] Oxygen Therapy Mode: Room Air Patient Handouts: COVID-19 Frequently Asked Questions, Amphetamines Use Disorder, COVID-19 Vaccine Information, Hypotension, [id number], COVID-19: How to Protect Yourself and Others - [facility] Referrals: Gibson Ansari DO [Physician] - - Discharge Summary/Plan Comment DC Time >30 min.: No Total # of Minutes for Discharge Time: 25 - Patient Data Vitals - Most Recent: Last Vital Signs Temp 97.2 F 10/18/21 08:39 Pulse 63 10/18/21 08:39 Resp 20 10/18/21 08:39 BP 95/62 10/18/21 08:39 Pulse Ox 95 10/18/21 08:39 Weight - Most Recent: 99.291 kg I&O - Last 24 hours: Intake & Output 10/17/21 10/18/21 10/18/21 22:59 06:59 14:59 Intake Total 1050 Output Total 675 Balance 375 Lab Results - Last 24 hrs: Laboratory Results - last 24 hr 10/17/21 10/17/21 10/18/21 Range/Units 11:40 17:02 03:08 WBC (4.0-11.0) K/uL RBC (4.50-5.90) M/uL Hgb (13.0-17.0) g/dL Hct (38.0-50.0) % MCV (80.0-98.0) fL MCH (27.0-32.0) pg MCHC (31.0-37.0) g/dL RDW Std Deviation (28.0-62.0) fl RDW Coeff of Dennis (11.0-15.0) % Plt Count (150-400) K/uL MPV (7.40-12.00) fL Neut % (Auto) (48.0-80.0) % Lymph % (Auto) (16.0-40.0) % Bleckley % (Auto) (0.0-15.0) % Eos % (Auto) (0.0-7.0) % Baso % (Auto) (0.0-1.5) % Neut # (Auto) (1.4-5.7) K/uL Lymph # (Auto) (0.6-2.4) K/uL Bleckley # (Auto) (0.0-0.8) K/uL Eos # (Auto) (0.0-0.7) K/uL Baso # (Auto) (0.0-0.1) K/uL Nucleated RBC % /100WBC Nucleated RBCs # K/uL Sodium (136-148) mmol/L Potassium (3.5-5.1) mmol/L Chloride (98-107) mmol/L Carbon Dioxide (21.0-32.0) mmol/L BUN (7.0-18.0) mg/dL Creatinine (0.8-1.3) mg/dL Est Cr Clr Drug Dosing mL/min Estimated GFR (MDRD) ml/min Glucose (74-106) mg/dL POC Glucose 215 H 189 H (70-99) mg/dL Calcium (8.5-10.1) mg/dL Magnesium (1.8-2.4) mg/dL Total Bilirubin (0.2-1.0) mg/dL AST (15-37) IU/L ALT (14-63) IU/L Alkaline Phosphatase (46-116) U/L Total Protein (6.4-8.2) g/dL Albumin (3.4-5.0) g/dL Globulin (2.6-4.0) g/dL Albumin/Globulin Ratio (0.9-1.6) Vancomycin Trough 11.5 H (5.0-10.0) ug/mL 10/18/21 10/18/21 10/18/21 Range/Units 05:55 05:55 06:26 WBC 9.22 (4.0-11.0) K/uL RBC 4.46 L (4.50-5.90) M/uL Hgb 13.7 (13.0-17.0) g/dL Hct 41.8 (38.0-50.0) % MCV 93.7 (80.0-98.0) fL MCH 30.7 (27.0-32.0) pg MCHC 32.8 (31.0-37.0) g/dL RDW Std Deviation 48.8 (28.0-62.0) fl RDW Coeff of Dennis 14 (11.0-15.0) % Plt Count 146 L (150-400) K/uL MPV 11.90 (7.40-12.00) fL Neut % (Auto) 60.3 (48.0-80.0) % Lymph % (Auto) 31.7 (16.0-40.0) % Bleckley % (Auto) 7.7 (0.0-15.0) % Eos % (Auto) 0.2 (0.0-7.0) % Baso % (Auto) 0.1 (0.0-1.5) % Neut # (Auto) 5.6 (1.4-5.7) K/uL Lymph # (Auto) 2.9 H (0.6-2.4) K/uL Bleckley # (Auto) 0.7 (0.0-0.8) K/uL Eos # (Auto) 0.0 (0.0-0.7) K/uL Baso # (Auto) 0.0 (0.0-0.1) K/uL Nucleated RBC % 0.0 /100WBC Nucleated RBCs # 0 K/uL Sodium 139 (136-148) mmol/L Potassium 4.0 (3.5-5.1) mmol/L Chloride 103 (98-107) mmol/L Carbon Dioxide 27.3 (21.0-32.0) mmol/L BUN 20 H (7.0-18.0) mg/dL Creatinine 0.8 (0.8-1.3) mg/dL Est Cr Clr Drug Dosing 106.81 mL/min Estimated GFR (MDRD) > 60.0 ml/min Glucose 199 H (74-106) mg/dL POC Glucose 199 H (70-99) mg/dL Calcium 8.2 L (8.5-10.1) mg/dL Magnesium 1.6 L (1.8-2.4) mg/dL Total Bilirubin 0.5 (0.2-1.0) mg/dL AST 64 H (15-37) IU/L ALT 32 (14-63) IU/L Alkaline Phosphatase 56 (46-116) U/L Total Protein 5.9 L (6.4-8.2) g/dL Albumin 2.5 L (3.4-5.0) g/dL Globulin 3.4 (2.6-4.0) g/dL Albumin/Globulin Ratio 0.7 L (0.9-1.6) Vancomycin Trough (5.0-10.0) ug/mL NORMA Results - Last 24 hrs: Microbiology 10/16/21 01:17 Aerobic Blood Culture - Preliminary Blood - Venous - Lab Draw NO GROWTH AFTER 2 DAYS Anaerobic Blood Culture - Preliminary NO GROWTH AFTER 2 DAYS 10/16/21 00:15 Aerobic Blood Culture - Preliminary Blood - Venous NO GROWTH AFTER 2 DAYS Anaerobic Blood Culture - Preliminary Med Orders - Current: Current Medications Hydrocodone Bitart/Acetaminophen (Acetaminophen/Hydrocodone 325-10 Mg Tab) 1 tab PO Q4H PRN PRN Reason: Pain Last Admin: 10/18/21 08:22 Dose: 1 tab Documented by: Albuterol/Ipratropium (Albuterol/Ipratropium 4 Gm Inhalation Pritchett) 0 gm INH Q4H PRN PRN Reason: Dyspnea Amiodarone HCl (Amiodarone 200 Mg Tab) 200 mg PO DAILY [facility] Last Admin: 10/18/21 08:22 Dose: 200 mg Documented by: Apixaban (Apixaban 5 Mg Tab) 5 mg PO BID [facility] Last Admin: 10/18/21 08:23 Dose: 5 mg Documented by: Atorvastatin Calcium (Atorvastatin 40 Mg Tab) 40 mg PO BEDTIME [facility] Last Admin: 10/17/21 21:02 Dose: 40 mg Documented by: Clopidogrel Bisulfate (Clopidogrel 75 Mg Tab) 75 mg PO DAILY [facility] Last Admin: 10/18/21 08:22 Dose: 75 mg Documented by: Dexamethasone (Dexamethasone 4 Mg Tab) 6 mg PO DAILY [facility] Last Admin: 10/18/21 08:23 Dose: 6 mg Documented by: Dextrose/Water (50% Dextrose In Water 50 Ml Syringe) 50 ml IVPUSH ASDIRECTED PRN PRN Reason: Hypoglycemia Duloxetine HCl (Duloxetine 60 Mg Cap) 60 mg PO DAILY [facility] Last Admin: 10/18/21 08:22 Dose: 60 mg Documented by: Famotidine (Famotidine 20 Mg Tab) 20 mg PO BID PRN PRN Reason: Other Last Admin: 10/16/21 17:07 Dose: 20 mg Documented by: Glucagon (Glucagon,Human Recombinant 1 Mg Vial) 1 mg IM ASDIRECTED PRN PRN Reason: Hypoglycemia Remdesivir 100 mg/ Sodium (Chloride) 100 mls @ 100 mls/hr IV Q24H [facility] Stop: 10/20/21 04:59 Last Admin: 10/18/21 03:37 Dose: 100 mls/hr Documented by: Piperacillin Sod/Tazobactam (Sod 3.375 gm/ Sodium Chloride) 50 mls @ 100 mls/hr IV Q6H [facility] Last Admin: 10/18/21 08:21 Dose: 100 mls/hr Documented by: Vancomycin HCl 1.75 gm/ Premix 350 mls @ 200 mls/hr IV Q12H [facility] Last Admin: 10/18/21 05:46 Dose: 200 mls/hr Documented by: Insulin Aspart (Insulin Aspart 100 Units/Ml 3 Ml Pen) 0 unit SUBCUT TIDAC [facility]; Protocol Last Admin: 10/18/21 08:19 Dose: 2 units Documented by: Insulin Glargine (Insulin Glargine,Human Rec. Analog 100 Units/Ml 3 Ml Pen) 16 units SUBCUT DAILY [facility] Last Admin: 10/18/21 08:23 Dose: 16 units Documented by: Metoprolol Succinate (Metoprolol Succinate 25 Mg Tab.Er) 75 mg PO BEDTIME [facility] Last Admin: 10/17/21 21:03 Dose: 75 mg Documented by: Pantoprazole Sodium (Pantoprazole 40 Mg Tab.Cr) 40 mg PO ACBREAKFAST [facility] Last Admin: 10/18/21 08:21 Dose: 40 mg Documented by: Pregabalin (Pregabalin 200 Mg Cap) 200 mg PO TID [facility] Last Admin: 10/18/21 05:46 Dose: 200 mg Documented by: Quetiapine Fumarate (Quetiapine 100 Mg Tab) 200 mg PO BEDTIME [facility] Last Admin: 10/17/21 21:01 Dose: 200 mg Documented by: Trazodone HCl (Trazodone 50 Mg Tab) 50 mg PO BEDTIME [facility] Last Admin: 10/17/21 21:02 Dose: 50 mg Documented by: Vancomycin HCl (Pharmacy To Dose - Vancomycin) 1 dose .XX DAILY [facility] Last Admin: 10/18/21 10:42 Dose: Not Given Documented by: Venlafaxine HCl (Venlafaxine 75 Mg Cap.Er) 75 mg PO DAILY [facility] Last Admin: 10/18/21 08:23 Dose: 75 mg Documented by: Discontinued Medications Dexamethasone (Dexamethasone 10 Mg/Ml Sdv) 6 mg IVPUSH ONETIME ONE Stop: 10/16/21 01:44 Last Admin: 10/16/21 01:54 Dose: 6 mg Documented by: Dextrose/Water (50% Dextrose In Water 50 Ml Syringe) 50 ml IVPUSH ASDIRECTED PRN PRN Reason: Hypoglycemia Fentanyl (Fentanyl 50 Mcg/Ml Sdv) 50 mcg IVPUSH ONETIME ONE Stop: 10/16/21 00:30 Last Admin: 10/16/21 00:55 Dose: 50 mcg Documented by: Glucagon (Glucagon,Human Recombinant 1 Mg Vial) 1 mg IM ASDIRECTED PRN PRN Reason: Hypoglycemia Sodium Chloride (Normal Saline) 1,000 mls @ 999 mls/hr IV .Bolus ONE Stop: 10/16/21 01:26 Last Admin: 10/16/21 00:59 Dose: 999 mls/hr Documented by: Fentanyl Citrate 2,500 mcg/ (Premix) 250 mls @ 2.5 mls/hr IV TITRATE PRN; Protocol PRN Reason: Sedation Last Titration: 10/16/21 08:36 Dose: 75 mcg/hr, 7.5 mls/hr Documented by: Sodium Chloride (Normal Saline) 1,000 mls @ 999 mls/hr IV .Bolus ONE Stop: 10/16/21 01:28 Last Admin: 10/16/21 01:00 Dose: 999 mls/hr Documented by: Sodium Chloride (Normal Saline) 1,000 mls @ 999 mls/hr IV .Bolus ONE Stop: 10/16/21 01:28 Last Admin: 10/16/21 01:29 Dose: 999 mls/hr Documented by: Cefepime HCl 2 gm/ Premix 50 mls @ 100 mls/hr IV ONETIME ONE Stop: 10/16/21 00:58 Last Admin: 10/16/21 01:12 Dose: 100 mls/hr Documented by: Fentanyl Citrate (Fentanyl 2500 Mcg In Ns 250 Ml (10 Mcg/Ml)) Confirm Administered Dose 250 mls @ as directed .ROUTE .STK-MED ONE Stop: 10/16/21 00:45 Last Admin: 10/16/21 01:07 Dose: Not Given Documented by: Vancomycin HCl 2 gm/ Premix 400 mls @ 200 mls/hr IV NOW ONE Stop: 10/16/21 02:59 Last Admin: 10/16/21 04:20 Dose: 200 mls/hr Documented by: Norepinephrine Bitartrate (Norepinephr-0.9% Nacl 4 Mg/250) 4 mg in 250 mls @ 7.5 mls/hr IV TITRATE [facility]; Protocol Last Titration: 10/16/21 08:18 Dose: 4 mcg/min, 15 mls/hr Documented by: Remdesivir 200 mg/ Sodium (Chloride) 250 mls @ 250 mls/hr IV ONETIME ONE Stop: 10/16/21 01:45 Last Admin: 10/16/21 03:06 Dose: 250 mls/hr Documented by: Sodium Chloride (Normal Saline) 1,000 mls @ 100 mls/hr IV .Bolus ONE Stop: 10/16/21 12:37 Last Admin: 10/16/21 03:47 Dose: 100 mls/hr Documented by: Vancomycin HCl 1.5 gm/ Premix 300 mls @ 200 mls/hr IV Q12H [facility] Last Admin: 10/18/21 04:19 Dose: Not Given Documented by: Midazolam HCl 50 mg/ Sodium (Chloride) 50 mls @ 0.5 mls/hr IV TITRATE [facility]; Protocol Last Admin: 10/16/21 08:56 Dose: 0.5 mg/hr, 0.5 mls/hr Documented by: Norepinephrine Bitartrate (Norepinephr-0.9% Nacl 4 Mg/250) 4 mg in 250 mls @ 7.5 mls/hr IV TITRATE [facility]; Protocol Last Admin: 10/16/21 08:54 Dose: 2 mcg/min, 7.5 mls/hr Documented by: Cefepime HCl 2 gm/ Premix 50 mls @ 100 mls/hr IV ONETIME ONE Stop: 10/16/21 12:29 Last Admin: 10/16/21 12:19 Dose: 100 mls/hr Documented by: Metoprolol Tartrate 5 mg/ (Sodium Chloride) 55 mls @ 100 mls/hr IV ONETIME ONE Stop: 10/16/21 12:55 Last Admin: 10/16/21 12:40 Dose: Not Given Documented by: Piperacillin Sod/Tazobactam (Sod 3.375 gm/ Sodium Chloride) 50 mls @ 100 mls/hr IV Q8H [facility] Last Admin: 10/17/21 08:25 Dose: 100 mls/hr Documented by: Magnesium Sulfate 4 gm/ Premix 100 mls @ 33.333 mls/hr IV ONETIME ONE Stop: 10/18/21 11:25 Last Admin: 10/18/21 09:50 Dose: 33.333 mls/hr Documented by: Iopamidol (Iopamidol 755 Mg/Ml 500 Ml Multipack Bottle) 75 ml IVPUSH ONETIME STA Stop: 10/16/21 03:17 Last Admin: 10/16/21 03:17 Dose: 75 ml Documented by: Ketamine HCl (Ketamine 500 Mg/10 Ml Mdv) Confirm Administered Dose 500 mg .ROUTE .STK-MED ONE Stop: 10/16/21 08:12 Last Admin: 10/16/21 08:19 Dose: Not Given Documented by: Ketamine HCl (Ketamine 500 Mg/10 Ml Mdv) 50 mg IV ONETIME ONE Stop: 10/16/21 08:17 Last Admin: 10/16/21 08:20 Dose: 50 mg Documented by: Ketorolac Tromethamine (Ketorolac 30 Mg/Ml Sdv) 30 mg IVPUSH ONETIME ONE Stop: 10/16/21 14:17 Last Admin: 10/16/21 15:42 Dose: 30 mg Documented by: Metoprolol Succinate (Metoprolol Succinate 50 Mg Tab.Er) 50 mg PO ONETIME ONE Stop: 10/16/21 12:24 Last Admin: 10/16/21 12:41 Dose: 50 mg Documented by: Metoprolol Succinate (Metoprolol Succinate 50 Mg Tab.Er) Confirm Administered Dose 50 mg .ROUTE .STK-MED ONE Stop: 10/16/21 12:28 Last Admin: 10/16/21 12:42 Dose: Not Given Documented by: Metoprolol Tartrate (Metoprolol Tartrate 5 Mg/5 Ml Sdv) Confirm Administered Dose 5 mg .ROUTE .STK-MED ONE Stop: 10/16/21 12:36 Last Admin: 10/16/21 12:59 Dose: Not Given Documented by: Midazolam HCl (Midazolam 1 Mg/Ml 2 Ml Sdv) 2 mg IVPUSH ONETIME ONE Stop: 10/16/21 08:34 Last Admin: 10/16/21 08:36 Dose: 2 mg Documented by: Midazolam HCl (Midazolam 1 Mg/Ml 2 Ml Sdv) Confirm Administered Dose 2 mg .ROUTE .STK-MED ONE Stop: 10/16/21 08:35 Last Admin: 10/16/21 08:44 Dose: Not Given Documented by: Non-Formulary Medication (Ticagrelor) 90 mg PO BID [facility] Last Admin: 10/17/21 21:52 Dose: Not Given Documented by: - Exam Quality Assessment: Denies: Supplemental Oxygen General: Reports: Alert, Oriented, Cooperative, No Acute Distress Lungs: Reports: Normal Respiratory Effort, Rhonchi Cardiovascular: Reports: Regular Rate, Irregular Rhythm GI/Abdominal Exam: Normal Bowel Sounds, Soft, Non-Tender Back Exam: Reports: Normal Inspection, Full Range of Motion Extremities: Normal Inspection, Normal Range of Motion, Non-Tender, No Pedal Edema Neurological: Reports: No New Focal Deficit Psy/Mental Status: Reports: Alert, Normal Affect, Normal Mood Discharge Operative/Procedures - Procedures Performed CL Indication: IV access, medication administration
== END 2021-10-18 15:30 | disposition home health service (06) | DRG 177 ==
LOC: MW.ED 00:02 → MW.MS 14:39
PROVIDERS: ADMIT Pediatrics; ATTEND Pediatrics
PROC: 8E0ZXY6 Isolation (ICD-10-PCS; principal; 2021-10-16)
PROC: XW033E5 Introduction of Remdesivir Anti-infective into Peripheral Vein, Percutaneous Approach, New Technology Group 5 (ICD-10-PCS; 2021-10-16)
PROC: 3E0333Z Introduction of Anti-inflammatory into Peripheral Vein, Percutaneous Approach (ICD-10-PCS; 2021-10-16)
PROC: 3E0DX3Z Introduction of Anti-inflammatory into Mouth and Pharynx, External Approach (ICD-10-PCS; 2021-10-16)
DX: R41.82 Altered mental status, unspecified (principal); U07.1 COVID-19; J96.01 Acute respiratory failure with hypoxia; I46.9 Cardiac arrest, cause unspecified; I48.0 Paroxysmal atrial fibrillation; M54.2 Cervicalgia; I49.9 Cardiac arrhythmia, unspecified; I48.91 Unspecified atrial fibrillation; J44.9 Chronic obstructive pulmonary disease, unspecified; G89.29 Other chronic pain; Z86.73 Personal history of transient ischemic attack (TIA), and cerebral infarction without residual deficits; M54.9 Dorsalgia, unspecified; J43.9 Emphysema, unspecified; F41.9 Anxiety disorder, unspecified; F32.A Depression, unspecified; I10 Essential (primary) hypertension; I25.10 Atherosclerotic heart disease of native coronary artery without angina pectoris; E11.9 Type 2 diabetes mellitus without complications; F17.200 Nicotine dependence, unspecified, uncomplicated; F15.10 Other stimulant abuse, uncomplicated; K21.9 Gastro-esophageal reflux disease without esophagitis; I95.9 Hypotension, unspecified; Z95.5 Presence of coronary angioplasty implant and graft; Z79.01 Long term (current) use of anticoagulants; Z79.4 Long term (current) use of insulin; Z91.030 Bee allergy status; Z79.899 Other long term (current) drug therapy; Z86.718 Personal history of other venous thrombosis and embolism
CPT/HCPCS: 0241U; 36415; 36556; 36600; 51702; 70450; 71045; 71275; 72125; 74177; 80048; 80053; 80202; 80305; 80307; 81001; 82803; 82947; 83605; 83690; 83735; 84100; 84443; 84484; 85025; 85379; 85610; 85730; 86140; 87040; 93005; 96365; 96366; 96367; 96368; 96375; 99285; A9270-GY; J0692; J1100; J1815-GY; J1885; J2250; J2543; J3010; J3370; J3475; J7030; J7050; J8540; Q9967

== ENCOUNTER 2021-11-13 18:25 | Emergency (ER) | payer MEDICARE ==
[2021-11-13] MEDS ORDERED: Sodium Chloride 0.9% 2.5 ML Syringe FLUSH PRN (18:26)
[2021-11-13] MEDS ORDERED: Sodium Chloride 0.9% 10 ML Syringe FLUSH PRN (18:26)
[2021-11-13] MEDS ORDERED: Sodium Chloride 0.9% 1,000 ML IV ONE (18:26)
[2021-11-13] MEDS ORDERED: Nitroglycerin 0.4 MG Tab.SL SL PRN (18:34)
[2021-11-13] MEDS ORDERED: Diltiazem 25 MG/5 ML SDV IVPUSH ONE (18:34)
[2021-11-13] MEDS ORDERED: Metoprolol Tartrate 50 MG Tab PO ONE (19:20)
[2021-11-13] MEDS ORDERED: Amiodarone 200 MG Tab PO ONE (19:20)
[2021-11-13 19:25] LABS: LIPASE 50 U/L (73-393)
[2021-11-13 19:37] LABS: BLOOD UREA NITROGEN,BUN 16 mg/dL (7.0-18.0); CARBON DIOXIDE,CO2 22.9 mmol/L (21.0-32.0); CHLORIDE,CL 98 mmol/L (98-107); GLUCOSE RANDOM 273 mg/dL (74-106); POTASSIUM,K 4.3 mmol/L (3.5-5.1); SODIUM,NA 136 mmol/L (136-148)
[2021-11-13] MEDS ORDERED: Magnesium Sulfate/Water 2 GM in Premix Bag 1 BAG IV ONE (19:43)
[2021-11-13] MEDS ORDERED: Iopamidol 755 MG/ML 500 ML Multipack Bottle IVPUSH ONE (20:35)
[2021-11-13] MEDS ORDERED: Cefepime 2 GM in Premix Bag 1 BAG IV ONE (21:25)
[2021-11-13] MEDS ORDERED: Lactated Ringers 1,000 ML IV STA (21:47)
[2021-11-13] MEDS ORDERED: VANCOmycin 1.5 GM/300 ML 300 ML IV SCH (22:00)
[2021-11-13] MEDS ORDERED: VANCOmycin 2 GM/400 ML 400 ML IV SCH (22:00)
[2021-11-13] MEDS ORDERED: Aspirin 81 MG Tab.Chew PO ONE (22:31)
[2021-11-13] MEDS ORDERED: Heparin Sodium 5,000 Units/ML Vial IVPUSH ONE (22:44)
[2021-11-13] MEDS ORDERED: Heparin Sodium/0.45% NaCl 500 ML IV SCH (22:45)
[2021-11-13] MEDS ORDERED: Heparin Sodium/0.45% NaCl 500 ML ONE (22:51)
== END 2021-11-14 02:10 ==
LOC: MW.ED 18:25
DX: I21.4 Non-ST elevation (NSTEMI) myocardial infarction (principal); E11.10 Type 2 diabetes mellitus with ketoacidosis without coma; J44.9 Chronic obstructive pulmonary disease, unspecified; I10 Essential (primary) hypertension; I48.91 Unspecified atrial fibrillation; K21.9 Gastro-esophageal reflux disease without esophagitis; Z86.73 Personal history of transient ischemic attack (TIA), and cerebral infarction without residual deficits; Z91.030 Bee allergy status; Z79.899 Other long term (current) drug therapy; Z79.01 Long term (current) use of anticoagulants; Z20.822 Contact with and (suspected) exposure to COVID-19
CPT/HCPCS: 36415; 71045; 74177; 80053; 80305; 80307; 81001; 83605; 83690; 83735; 84443; 84484; 85025; 85610; 85730; 87040; 87804; 93005; 96365; 96366; 96367; 96368; 96375; 99291; A9270; J0692; J1644; J3370; J3475; J3490; J7030; J7120; Q9967; U0002

== ENCOUNTER 2022-01-25 16:46 | Emergency (ER) | payer MEDICARE, MEDICAID ==
[2022-01-25] MEDS ORDERED: Metoprolol Succinate 50 MG Tab.ER PO STA (17:21)
== END 2022-01-25 18:15 | disposition home or self-care (01) ==
LOC: MW.ED 16:46
DX: S16.1XXA Strain of muscle, fascia and tendon at neck level, initial encounter (principal); S00.03XA Contusion of scalp, initial encounter; J44.9 Chronic obstructive pulmonary disease, unspecified; K21.9 Gastro-esophageal reflux disease without esophagitis; I10 Essential (primary) hypertension; E11.9 Type 2 diabetes mellitus without complications; Z86.73 Personal history of transient ischemic attack (TIA), and cerebral infarction without residual deficits; Z79.4 Long term (current) use of insulin; Z91.030 Bee allergy status; Z79.01 Long term (current) use of anticoagulants; W07.XXXA Fall from chair, initial encounter
CPT/HCPCS: 70450; 72125; 93005; 99284; A9270; 93010; 99283

== ENCOUNTER 2022-03-10 08:59 | Emergency (ER) | payer MEDICARE, MEDICAID ==
[2022-03-10] MEDS ORDERED: Albuterol/Ipratropium 3.0-0.5 MG/3 ML Neb Soln NEB STA (09:01)
[2022-03-10] MEDS ORDERED: predniSONE 20 MG Tab PO ONE (09:02)
[2022-03-10] MEDS ORDERED: Aspirin 81 MG Tab.Chew PO ONE (09:04)
[2022-03-10] MEDS ORDERED: Lactated Ringers 1,000 ML IV STA (09:23)
[2022-03-10] MEDS ORDERED: Diltiazem 50 MG/10 ML SDV IVPUSH ONE (09:24)
[2022-03-10] MEDS ORDERED: Metoprolol Tartrate 50 MG Tab PO ONE (09:25)
[2022-03-10] MEDS ORDERED: Amiodarone 200 MG Tab PO ONE (09:25)
[2022-03-10 10:53] LABS: BLOOD UREA NITROGEN,BUN 17 mg/dL (7.0-18.0); CARBON DIOXIDE,CO2 23.5 mmol/L (21.0-32.0); CHLORIDE,CL 99 mmol/L (98-107); GLUCOSE RANDOM 235 mg/dL (74-106); POTASSIUM,K 3.9 mmol/L (3.5-5.1); SODIUM,NA 134 mmol/L (136-148)
== END 2022-03-10 12:14 | disposition home or self-care (01) ==
LOC: MW.ED 08:59
DX: J44.1 Chronic obstructive pulmonary disease with (acute) exacerbation (principal); J18.9 Pneumonia, unspecified organism; I48.0 Paroxysmal atrial fibrillation; E11.9 Type 2 diabetes mellitus without complications; Z86.16 Personal history of COVID-19; Z91.030 Bee allergy status; Z79.01 Long term (current) use of anticoagulants; Z79.899 Other long term (current) drug therapy; Z79.4 Long term (current) use of insulin; Z86.73 Personal history of transient ischemic attack (TIA), and cerebral infarction without residual deficits; Z20.822 Contact with and (suspected) exposure to COVID-19
CPT/HCPCS: 36415; 71045; 80053; 83605; 83735; 83880; 84484; 85025; 85610; 87040; 93005; 96374; 99285; A9270; J3490; J7120; U0002; J7620-GY

== ENCOUNTER 2022-03-17 14:52 | Emergency (ER) | payer MEDICARE ==
[2022-03-17] MEDS ORDERED: Diltiazem 50 MG/10 ML SDV IVPUSH ONE (15:07)
[2022-03-17 16:02] LABS: BLOOD UREA NITROGEN,BUN 27 mg/dL (7.0-18.0); CARBON DIOXIDE,CO2 25.8 mmol/L (21.0-32.0); CHLORIDE,CL 101 mmol/L (98-107); GLUCOSE RANDOM 270 mg/dL (74-106); POTASSIUM,K 3.8 mmol/L (3.5-5.1); SODIUM,NA 136 mmol/L (136-148)
[2022-03-17] MEDS ORDERED: Diltiazem IR 60 MG Tab PO ONE (16:48)
== END 2022-03-17 17:20 | disposition home or self-care (01) ==
LOC: MW.ED 14:52
DX: I48.91 Unspecified atrial fibrillation (principal); J44.9 Chronic obstructive pulmonary disease, unspecified; E11.9 Type 2 diabetes mellitus without complications; I25.10 Atherosclerotic heart disease of native coronary artery without angina pectoris; K21.9 Gastro-esophageal reflux disease without esophagitis; Z86.73 Personal history of transient ischemic attack (TIA), and cerebral infarction without residual deficits; Z91.030 Bee allergy status; Z79.01 Long term (current) use of anticoagulants; Z79.899 Other long term (current) drug therapy
CPT/HCPCS: 36415; 80053; 80307; 83735; 84484; 85025; 93005; 96374; 99285; A9270; J3490; 93010; 99284

== ENCOUNTER 2022-03-25 18:22 | Inpatient (IN) | payer MEDICARE ==
[2022-03-25] MEDS ORDERED: Diltiazem 50 MG/10 ML SDV IVPUSH ONE ×2 (18:44→20:36)
[2022-03-25] MEDS ORDERED: Diltiazem 100 MG in Sodium Chloride 0.9% 100 ML IV SCH (19:15)
[2022-03-25] MEDS ORDERED: Furosemide 40 MG/4 ML VIAL IVPUSH ONE (19:18)
[2022-03-25 19:34] LABS: BLOOD UREA NITROGEN,BUN 13 mg/dL (7.0-18.0); CARBON DIOXIDE,CO2 24.2 mmol/L (21.0-32.0); CHLORIDE,CL 99 mmol/L (98-107); GLUCOSE RANDOM 229 mg/dL (74-106); SODIUM,NA 133 mmol/L (136-148)
[2022-03-25 19:35] LABS: ESTIMATED GFR > 60.0 ml/min
[2022-03-25] MEDS ORDERED: QUEtiapine 100 MG Tab PO STA (19:39)
[2022-03-26] MEDS ORDERED: Acetaminophen/HYDROcodone 325-5 MG Tab PO ONE (00:32)
[2022-03-26] MEDS ORDERED: Glucagon,Human Recombinant 1 MG Vial IM PRN ×2 (00:48→00:52)
[2022-03-26] MEDS ORDERED: 50% Dextrose in Water 50 ML Syringe IVPUSH PRN ×2 (00:48→00:52)
[2022-03-26] MEDS ORDERED: Albuterol/Ipratropium 4 GM Inhalation Spray INH PRN (00:48)
[2022-03-26] MEDS: Acetaminophen/HYDROcodone 325-10 MG Tab PO PRN ×5 (04:58→20:59)
[2022-03-26] MEDS: Pregabalin 75 MG Cap PO SCH ×3 (06:33→21:17)
[2022-03-26 07:06] LABS: BLOOD UREA NITROGEN,BUN 14 mg/dL (7.0-18.0); CARBON DIOXIDE,CO2 27.9 mmol/L (21.0-32.0); CHLORIDE,CL 96 mmol/L (98-107); GLUCOSE RANDOM 246 mg/dL (74-106); POTASSIUM,K 3.9 mmol/L (3.5-5.1); SODIUM,NA 132 mmol/L (136-148)
[2022-03-26 07:08] LABS: ESTIMATED GFR > 60.0 ml/min
[2022-03-26] MEDS: Insulin Aspart 100 Units/ML 3 ML Pen SUBCUT SCH ×3 (07:46→18:21)
[2022-03-26] MEDS: Apixaban 5 MG Tab PO SCH ×2 (08:03→20:54)
[2022-03-26] MEDS: Furosemide 40 MG Tab PO SCH (08:03)
[2022-03-26] MEDS: Amiodarone 200 MG Tab PO SCH (08:03)
[2022-03-26] MEDS: Insulin Glargine,Human Rec. Analog 100 Units/ML 3 ML Pen SUBCUT SCH (08:04)
[2022-03-26] MEDS ORDERED: Famotidine 20 MG Tab PO PRN (08:40)
[2022-03-26] MEDS: DULoxetine 60 MG Cap PO SCH (08:49)
[2022-03-26] MEDS: Metoprolol Succinate 25 MG Tab.ER PO SCH (08:49)
[2022-03-26] MEDS ORDERED: QUEtiapine 100 MG Tab PO SCH (09:00)
[2022-03-26] MEDS ORDERED: Furosemide 40 MG/4 ML VIAL IVPUSH SCH (14:00)
[2022-03-26] MEDS: QUEtiapine 100 MG Tab PO SCH (20:54)
[2022-03-26] MEDS: atorvaSTATin 40 MG Tab PO SCH (20:54)
[2022-03-26] MEDS ORDERED: traZODone 50 MG Tab PO SCH (21:00)
[2022-03-27] MEDS: Pregabalin 75 MG Cap PO SCH ×3 (05:37→21:02)
[2022-03-27] MEDS: Acetaminophen/HYDROcodone 325-10 MG Tab PO PRN ×4 (05:41→21:48)
[2022-03-27 06:51] LABS: BLOOD UREA NITROGEN,BUN 23 mg/dL (7.0-18.0); CARBON DIOXIDE,CO2 30.1 mmol/L (21.0-32.0); CHLORIDE,CL 97 mmol/L (98-107); GLUCOSE RANDOM 212 mg/dL (74-106); POTASSIUM,K 4.8 mmol/L (3.5-5.1); SODIUM,NA 135 mmol/L (136-148)
[2022-03-27 06:52] LABS: ESTIMATED GFR > 60.0 ml/min
[2022-03-27] MEDS: Insulin Aspart 100 Units/ML 3 ML Pen SUBCUT SCH ×3 (08:12→17:43)
[2022-03-27] MEDS: Metoprolol Succinate 25 MG Tab.ER PO SCH (08:34)
[2022-03-27] MEDS: Furosemide 40 MG Tab PO SCH (08:34)
[2022-03-27] MEDS: Amiodarone 200 MG Tab PO SCH (08:34)
[2022-03-27] MEDS: Apixaban 5 MG Tab PO SCH ×2 (08:34→21:02)
[2022-03-27] MEDS: DULoxetine 60 MG Cap PO SCH (08:35)
[2022-03-27] MEDS: Insulin Glargine,Human Rec. Analog 100 Units/ML 3 ML Pen SUBCUT SCH (08:35)
[2022-03-27] MEDS ORDERED: Metoprolol Succinate 25 MG Tab.ER PO ONE (12:30)
[2022-03-27] MEDS ORDERED: Furosemide 40 MG/4 ML VIAL IVPUSH ONE (12:30)
[2022-03-27] MEDS ORDERED: LORazepam 0.5 MG Tab PO PRN (16:34)
[2022-03-27] MEDS: Furosemide 40 MG/4 ML VIAL IVPUSH SCH ×2 (17:17→19:28)
[2022-03-27] MEDS: TICAGRELOR 90 MG PO SCH ×6 (17:19→23:09)
[2022-03-27] MEDS ORDERED: Ticagrelor 90 MG Tab PO ONE (17:42)
[2022-03-27] MEDS: QUEtiapine 100 MG Tab PO SCH (21:01)
[2022-03-27] MEDS: atorvaSTATin 40 MG Tab PO SCH (21:02)
[2022-03-27] MEDS ORDERED: Albumin 5% 250 ML IV SCH (23:45)
[2022-03-27] MEDS ORDERED: Metoclopramide 10 MG/2 ML SDV IVPUSH PRN (23:52)
[2022-03-28] MEDS: Pregabalin 75 MG Cap PO SCH ×3 (05:56→21:06)
[2022-03-28] MEDS: Acetaminophen/HYDROcodone 325-10 MG Tab PO PRN ×4 (06:46→22:05)
[2022-03-28 07:51] LABS: BLOOD UREA NITROGEN,BUN 33 mg/dL (7.0-18.0); CARBON DIOXIDE,CO2 27.5 mmol/L (21.0-32.0); CHLORIDE,CL 97 mmol/L (98-107); GLUCOSE RANDOM 189 mg/dL (74-106); POTASSIUM,K 4.2 mmol/L (3.5-5.1); SODIUM,NA 135 mmol/L (136-148)
[2022-03-28 07:52] LABS: ESTIMATED GFR > 60.0 ml/min
[2022-03-28] MEDS ORDERED: Ticagrelor 90 MG Tab PO ONE (08:12)
[2022-03-28] MEDS: TICAGRELOR 90 MG PO SCH (08:12)
[2022-03-28] MEDS: Apixaban 5 MG Tab PO SCH ×2 (08:12→20:05)
[2022-03-28] MEDS: Insulin Aspart 100 Units/ML 3 ML Pen SUBCUT SCH ×3 (08:12→17:29)
[2022-03-28] MEDS: DULoxetine 60 MG Cap PO SCH (08:13)
[2022-03-28] MEDS: Furosemide 40 MG/4 ML VIAL IVPUSH SCH (08:17)
[2022-03-28] MEDS: Insulin Glargine,Human Rec. Analog 100 Units/ML 3 ML Pen SUBCUT SCH (08:24)
[2022-03-28] MEDS: Furosemide 40 MG Tab PO SCH (08:27)
[2022-03-28] MEDS: Amiodarone 200 MG Tab PO SCH (08:29)
[2022-03-28] MEDS ORDERED: Metoprolol Succinate 25 MG Tab.ER PO SCH (09:00)
[2022-03-28] MEDS ORDERED: Sodium Chloride 0.9% 10 ML Syringe FLUSH PRN (14:26)
[2022-03-28] MEDS ORDERED: Sodium Chloride 0.9% 2.5 ML Syringe FLUSH PRN (14:26)
[2022-03-28] MEDS ORDERED: Furosemide 40 MG/4 ML VIAL IVPUSH ONE (19:24)
[2022-03-28] MEDS: atorvaSTATin 40 MG Tab PO SCH (20:05)
[2022-03-28] MEDS: QUEtiapine 100 MG Tab PO SCH (20:05)
[2022-03-28] MEDS: Ticagrelor 90 MG Tab PO SCH (20:06)
[2022-03-29] MEDS: Pregabalin 75 MG Cap PO SCH (05:44)
[2022-03-29] MEDS: Acetaminophen/HYDROcodone 325-10 MG Tab PO PRN (07:14)
[2022-03-29 07:27] LABS: BLOOD UREA NITROGEN,BUN 34 mg/dL (7.0-18.0); CARBON DIOXIDE,CO2 29.8 mmol/L (21.0-32.0); CHLORIDE,CL 96 mmol/L (98-107); GLUCOSE RANDOM 366 mg/dL (74-106); POTASSIUM,K 3.7 mmol/L (3.5-5.1); SODIUM,NA 134 mmol/L (136-148)
[2022-03-29] MEDS: Insulin Aspart 100 Units/ML 3 ML Pen SUBCUT SCH (07:27)
[2022-03-29 07:28] LABS: ESTIMATED GFR > 60.0 ml/min
[2022-03-29] MEDS ORDERED: Magnesium Sulfate/Water 2 GM in Premix Bag 1 BAG IV ONE (08:00)
[2022-03-29] MEDS ORDERED: Potassium Chloride 20 MEQ Tab.ER PO ONE (08:00)
[2022-03-29] MEDS: Ticagrelor 90 MG Tab PO SCH (08:05)
[2022-03-29] MEDS: DULoxetine 60 MG Cap PO SCH (08:05)
[2022-03-29] MEDS: Apixaban 5 MG Tab PO SCH (08:05)
[2022-03-29] MEDS: Insulin Glargine,Human Rec. Analog 100 Units/ML 3 ML Pen SUBCUT SCH (08:06)
[2022-03-29] MEDS ORDERED: Amiodarone 200 MG Tab PO SCH (09:00)
[2022-03-29] MEDS ORDERED: Furosemide 40 MG Tab PO SCH (09:00)
[2022-03-29] MEDS ORDERED: Magnesium Oxide 400 MG Tab PO ONE (09:01)
== END 2022-03-29 11:40 | disposition home or self-care (01) | DRG 291 ==
LOC: MW.ED 18:22 → MW.ICU 21:51
PROVIDERS: ADMIT Internal Medicine; ATTEND Internal Medicine
DX: I11.0 Hypertensive heart disease with heart failure (principal); J96.01 Acute respiratory failure with hypoxia; I10 Essential (primary) hypertension; Z95.1 Presence of aortocoronary bypass graft; I50.23 Acute on chronic systolic (congestive) heart failure; I48.91 Unspecified atrial fibrillation; J44.9 Chronic obstructive pulmonary disease, unspecified; I25.10 Atherosclerotic heart disease of native coronary artery without angina pectoris; E11.9 Type 2 diabetes mellitus without complications; M54.2 Cervicalgia; G47.01 Insomnia due to medical condition; Z86.16 Personal history of COVID-19; Z87.19 Personal history of other diseases of the digestive system; Z91.030 Bee allergy status; G89.29 Other chronic pain; K21.9 Gastro-esophageal reflux disease without esophagitis; F41.9 Anxiety disorder, unspecified; Z20.822 Contact with and (suspected) exposure to COVID-19; I08.1 Rheumatic disorders of both mitral and tricuspid valves; F32.A Depression, unspecified; Z86.73 Personal history of transient ischemic attack (TIA), and cerebral infarction without residual deficits; Z79.4 Long term (current) use of insulin; Z79.01 Long term (current) use of anticoagulants; Z87.898 Personal history of other specified conditions; Z79.899 Other long term (current) drug therapy; Z95.5 Presence of coronary angioplasty implant and graft; Z86.718 Personal history of other venous thrombosis and embolism
CPT/HCPCS: 36415; 71045; 80053; 83880; 84443; 84484 ×2; 85025; 96374; 96375; 96376; 99285; A9270; J1940; J3490 ×3; U0002; 80048; 82947; 83735; 84145; 93010; 93306; 97110-GP; 97112-GP; 97163-GP; 99291; J0282; J1815-GY; J3475; P9045

== ENCOUNTER 2022-05-03 21:10 | Emergency (ER) | payer MEDICAID, MEDICARE ==
[2022-05-03] MEDS ORDERED: methylPREDNISolone Sodium Succinate 125 MG/2 ML SDV IVPUSH ONE (22:03)
[2022-05-03] MEDS ORDERED: Calcium Gluconate 10% 1 GM/10 ML SDV IVPUSH ONE (22:04)
[2022-05-03] MEDS ORDERED: Diltiazem 50 MG/10 ML SDV IVPUSH ONE (22:04)
[2022-05-03] MEDS: Sodium Chloride 0.9% 2.5 ML Syringe FLUSH PRN (22:18)
[2022-05-03] MEDS: Sodium Chloride 0.9% 10 ML Syringe FLUSH PRN (22:18)
[2022-05-03] MEDS ORDERED: Diltiazem 25 MG/5 ML SDV ONE (22:21)
[2022-05-03] MEDS ORDERED: Sodium Chloride 0.9% 250 ML IV STA (22:59)
[2022-05-03] MEDS ORDERED: Sodium Chloride 0.9% 250 ML IV SCH (23:00)
[2022-05-03] MEDS ORDERED: Digoxin 500 MCG/2 ML Amp IVPUSH ONE (23:11)
[2022-05-03] MEDS ORDERED: Piperacillin/Tazobactam 3.375 GM in Sodium Chloride 0.9% 50 ML IV ONE (23:14)
[2022-05-03] MEDS ORDERED: Sodium Chloride 0.9% 500 ML IV SCH (23:30)
[2022-05-04 00:39] LABS: CARBON DIOXIDE,CO2 20.8 mmol/L (21.0-32.0); POTASSIUM,K 5.3 mmol/L (3.5-5.1)
[2022-05-04] MEDS: Sodium Chloride 0.9% 10 ML Syringe FLUSH PRN (00:42)
[2022-05-04] MEDS: Sodium Chloride 0.9% 2.5 ML Syringe FLUSH PRN (00:42)
[2022-05-04] MEDS ORDERED: Bacitracin Oint 1 GM U/D Packet TOP ONE (01:13)
[2022-05-04] MEDS ORDERED: Acetaminophen/HYDROcodone 325-5 MG Tab PO ONE (01:30)
== END 2022-05-04 02:10 ==
LOC: MW.ED 21:10
DX: J70.5 Respiratory conditions due to smoke inhalation (principal); I48.0 Paroxysmal atrial fibrillation; I95.9 Hypotension, unspecified; I25.10 Atherosclerotic heart disease of native coronary artery without angina pectoris; J44.9 Chronic obstructive pulmonary disease, unspecified; I10 Essential (primary) hypertension; E11.9 Type 2 diabetes mellitus without complications; Z86.73 Personal history of transient ischemic attack (TIA), and cerebral infarction without residual deficits; Z91.030 Bee allergy status; Z79.01 Long term (current) use of anticoagulants; Z79.899 Other long term (current) drug therapy; Z79.4 Long term (current) use of insulin; Z79.84 Long term (current) use of oral hypoglycemic drugs; Z86.16 Personal history of COVID-19; Z20.822 Contact with and (suspected) exposure to COVID-19
CPT/HCPCS: 36415; 70450; 71045; 80053; 80307; 82375; 82803; 82947; 83605; 83880; 84484; 85025; 85610; 87040; 93005; 96365; 96367; 96375; 99285; A9270; J0610; J1160; J2543; J2930; J3370; J3490; J7040; J7050; U0002

== ENCOUNTER 2022-05-22 08:53 | Emergency (ER) | payer MEDICARE ==
[2022-05-22] MEDS ORDERED: Sodium Chloride 0.9% 1,000 ML IV ONE (08:55)
[2022-05-22] MEDS ORDERED: Aspirin 81 MG Tab.Chew PO ONE (09:02)
[2022-05-22] MEDS ORDERED: Diltiazem 50 MG/10 ML SDV IVPUSH ONE (09:09)
[2022-05-22] MEDS ORDERED: Diltiazem 25 MG/5 ML SDV IVPUSH ONE (09:30)
[2022-05-22] MEDS ORDERED: Morphine 4 MG/ML VIAL IVPUSH ONE (09:53)
[2022-05-22] MEDS ORDERED: Ondansetron 4 MG/2 ML SDV IVPUSH ONE (09:53)
[2022-05-22] MEDS ORDERED: Amiodarone 200 MG Tab PO ONE (09:54)
[2022-05-22] MEDS ORDERED: Metoprolol Tartrate 25 MG Tab PO ONE (09:54)
[2022-05-22] MEDS ORDERED: LORazepam 2 MG/ML Syringe IVPUSH ONE (10:12)
[2022-05-22] MEDS ORDERED: LORazepam 2 MG/ML SDV IVPUSH ONE (10:17)
[2022-05-22 10:18] LABS: CARBON DIOXIDE,CO2 22.2 mmol/L (21.0-32.0); POTASSIUM,K 4.3 mmol/L (3.5-5.1)
[2022-05-22] MEDS ORDERED: Magnesium Sulfate/Water 2 GM in Premix Bag 1 BAG IV ONE (10:25)
[2022-05-22] MEDS ORDERED: Diltiazem IR 60 MG Tab PO ONE (10:27)
== END 2022-05-22 13:23 | disposition home or self-care (01) ==
LOC: MW.ED 08:53
DX: I48.0 Paroxysmal atrial fibrillation (principal); J44.9 Chronic obstructive pulmonary disease, unspecified; E11.9 Type 2 diabetes mellitus without complications; Z20.822 Contact with and (suspected) exposure to COVID-19; Z91.030 Bee allergy status; Z79.01 Long term (current) use of anticoagulants; Z79.899 Other long term (current) drug therapy; Z86.73 Personal history of transient ischemic attack (TIA), and cerebral infarction without residual deficits; Z86.16 Personal history of COVID-19
CPT/HCPCS: 36415; 71045; 80053; 83735; 84443; 84484; 85025; 85610; 85730; 93005; 96361; 96365; 96375; 99285; A9270; J2060; J2270; J2405; J3475; J3490; J7030; U0002; 93010

== ENCOUNTER 2022-06-01 16:17 | Inpatient (IN) | payer MEDICARE, OTHER ==
[2022-06-01 17:59] LABS: BLOOD UREA NITROGEN,BUN 31 mg/dL (7.0-18.0); CARBON DIOXIDE,CO2 19.3 mmol/L (21.0-32.0); CHLORIDE,CL 95 mmol/L (98-107); GLUCOSE RANDOM 269 mg/dL (74-106); POTASSIUM,K 5.6 mmol/L (3.5-5.1); SODIUM,NA 130 mmol/L (136-148)
[2022-06-01 18:07] LABS: ESTIMATED GFR 75 mL/min (>60)
[2022-06-01] MEDS ORDERED: Amiodarone 200 MG Tab PO SCH (19:30)
[2022-06-01] MEDS ORDERED: Glucagon,Human Recombinant 1 MG Vial IM PRN (19:39)
[2022-06-01] MEDS ORDERED: 50% Dextrose in Water 50 ML Syringe IVPUSH PRN (19:39)
[2022-06-01] MEDS ORDERED: LORazepam 0.5 MG Tab PO PRN (19:44)
[2022-06-01] MEDS: Apixaban 5 MG Tab PO SCH (20:25)
[2022-06-01] MEDS: Metoprolol Succinate 25 MG Tab.ER PO SCH (20:26)
[2022-06-01] MEDS: Furosemide 40 MG/4 ML VIAL IVPUSH SCH ×2 (20:27→21:14)
[2022-06-01] MEDS: Acetaminophen/HYDROcodone 325-5 MG Tab PO PRN (20:41)
[2022-06-01] MEDS ORDERED: QUEtiapine 100 MG Tab PO SCH (21:00)
[2022-06-01] MEDS ORDERED: atorvaSTATin 40 MG Tab PO SCH (21:00)
[2022-06-01] MEDS ORDERED: Insulin Glargine,Hum.Rec.Anlog 100 UNIT/ML 3 ML Pen SUBCUT SCH (21:00)
[2022-06-01] MEDS ORDERED: traZODone 50 MG Tab PO SCH (21:00)
[2022-06-01] MEDS: Pregabalin 200 MG Cap PO SCH (21:15)
[2022-06-01] MEDS ORDERED: Diltiazem 50 MG/10 ML SDV IVPUSH ONE (21:16)
[2022-06-01] MEDS ORDERED: Diltiazem 25 MG/5 ML SDV IVPUSH ONE (21:45)
[2022-06-01] MEDS ORDERED: Diltiazem 25 MG/5 ML SDV IVPUSH PRN (22:31)
[2022-06-01] MEDS: Ticagrelor 90 MG Tab PO SCH (22:37)
[2022-06-02] MEDS ORDERED: LORazepam 0.5 MG Tab PO ONE (01:23)
[2022-06-02] MEDS ORDERED: Digoxin 250 MCG Tab PO ONE (01:25)
[2022-06-02] MEDS: Acetaminophen/HYDROcodone 325-5 MG Tab PO PRN (04:06)
[2022-06-02] MEDS: Pregabalin 200 MG Cap PO SCH (06:47)
[2022-06-02] MEDS ORDERED: methylPREDNISolone Sodium Succinate 125 MG/2 ML SDV IVPUSH SCH (08:45)
[2022-06-02] MEDS ORDERED: Venlafaxine 37.5 MG Tab PO SCH (09:00)
[2022-06-02] MEDS: Metoprolol Succinate 25 MG Tab.ER PO SCH (10:22)
[2022-06-02] MEDS: Albuterol/Ipratropium 3.0-0.5 MG/3 ML Neb Soln NEB SCH ×2 (10:27→17:29)
[2022-06-02] MEDS: Furosemide 40 MG/4 ML VIAL IVPUSH SCH (12:33)
[2022-06-02] MEDS ORDERED: DOPamine/Dextrose 5%-Water 400 MG/250 ML BAG ONE (12:39)
[2022-06-02] MEDS ORDERED: DOPamine/Dextrose 5%-Water 400 MG/250 ML BAG IV SCH ×2 (12:45)
[2022-06-02] MEDS ORDERED: Heparin Sodium/0.45% NaCl 500 ML IV SCH (13:00)
[2022-06-02] MEDS ORDERED: Norepinephrine 4 MG in Dextrose 5% in Water 246 ML IV SCH ×2 (13:00)
[2022-06-02] MEDS ORDERED: fentaNYL 100 MCG/2 ML SDV IVPUSH ONE (13:10)
[2022-06-02] MEDS ORDERED: Midazolam 1 MG/ML 2 ML SDV IVPUSH ONE (13:10)
[2022-06-02] MEDS ORDERED: Heparin Sodium/0.45% NaCl 500 ML ONE (13:11)
[2022-06-02] MEDS ORDERED: Heparin Sodium 5,000 Units/ML Vial IVPUSH ONE ×2 (13:13→13:17)
[2022-06-02] MEDS ORDERED: Heparin Sodium 5,000 Units/ML Vial ONE ×2 (13:15→13:16)
[2022-06-02 13:42] LABS: CARBON DIOXIDE,CO2 24.7 mmol/L (21.0-32.0); POTASSIUM,K 5.9 mmol/L (3.5-5.1)
[2022-06-02] MEDS ORDERED: Pregabalin 75 MG Cap PO SCH (14:00)
[2022-06-02] MEDS ORDERED: Vasopressin 100 UNITS in Dextrose 5% in Water 245 ML IV SCH ×2 (14:00)
[2022-06-02] MEDS ORDERED: Albumin 25% 12.5 GM/50 ML BAG IV SCH (14:00)
[2022-06-02] MEDS ORDERED: Pregabalin 200 MG Cap PO SCH (14:00)
[2022-06-02 14:06] LABS: BILIRUBIN INDIRECT 0.9
[2022-06-02] MEDS: Insulin Aspart 100 Units/ML 3 ML Pen SUBCUT SCH ×2 (14:09→14:10)
[2022-06-02] MEDS: Ticagrelor 90 MG Tab PO SCH (14:09)
[2022-06-02] MEDS ORDERED: Propofol 200 MG/20 ML SDV ONE (14:34)
[2022-06-02] MEDS ORDERED: Furosemide 100 MG/10 ML SDV IVPUSH ONE (14:41)
[2022-06-02] MEDS ORDERED: EPINEPHrine 1 MG in Dextrose 5% in Water 99 ML IV SCH ×2 (14:45)
[2022-06-02] MEDS: Apixaban 5 MG Tab PO SCH (17:29)
[2022-06-02] MEDS: Morphine 2 MG/ML SYRINGE IVPUSH PRN ×2 (18:07→23:28)
[2022-06-03] MEDS: LORazepam 2 MG/ML SDV IVPUSH PRN (04:29)
[2022-06-03] MEDS: Morphine 2 MG/ML SYRINGE IVPUSH PRN ×2 (04:30→19:46)
[2022-06-04] MEDS: Morphine 2 MG/ML SYRINGE IVPUSH PRN ×5 (03:02→19:20)
[2022-06-04] MEDS: LORazepam 2 MG/ML SDV IVPUSH PRN (21:15)
[2022-06-05] MEDS: Morphine 2 MG/ML SYRINGE IVPUSH PRN ×4 (02:45→19:54)
[2022-06-05] MEDS: LORazepam 2 MG/ML SDV IVPUSH PRN ×3 (06:52→17:46)
[2022-06-06] MEDS: Morphine 2 MG/ML SYRINGE IVPUSH PRN ×2 (00:46→05:41)
[2022-06-06] MEDS: LORazepam 2 MG/ML SDV IVPUSH PRN ×2 (01:38→06:18)
[2022-06-06] MEDS ORDERED: Morphine 4 MG/ML VIAL IVPUSH PRN (08:15)
[2022-06-06] MEDS: Morphine 10 MG/0.5 ML Oral Syringe SL PRN ×8 (09:28→23:59)
[2022-06-06] MEDS: LORazepam ORAL Concentrate 1MG/0.5ML U/D SL PRN ×5 (09:29→22:29)
[2022-06-07] MEDS: LORazepam ORAL Concentrate 1MG/0.5ML U/D SL PRN ×5 (00:22→17:09)
[2022-06-07] MEDS: Morphine 10 MG/0.5 ML Oral Syringe SL PRN ×7 (05:53→13:41)
[2022-06-07] MEDS ORDERED: LORazepam ORAL Concentrate 1MG/0.5ML U/D SL ONE (06:45)
[2022-06-07] MEDS: Morphine 4 MG/ML VIAL IVPUSH PRN ×2 (17:38→21:51)
[2022-06-08] MEDS: Morphine 4 MG/ML VIAL IVPUSH PRN (04:21)
== END 2022-06-08 11:47 | disposition expired | DRG 291 ==
LOC: MW.CHIM 16:17 → MW.MS 18:39 → MW.ICU 06-02 08:33 → MW.MS 06-02 20:00
PROVIDERS: ADMIT Internal Medicine; ATTEND Internal Medicine
PROC: 5A2204Z Restoration of Cardiac Rhythm, Single (ICD-10-PCS; principal; 2022-06-02)
PROC: 05HN33Z Insertion of Infusion Device into Left Internal Jugular Vein, Percutaneous Approach (ICD-10-PCS; 2022-06-02)
PROC: 03HB33Z Insertion of Infusion Device into Right Radial Artery, Percutaneous Approach (ICD-10-PCS; 2022-06-02)
PROC: 3E033XZ Introduction of Vasopressor into Peripheral Vein, Percutaneous Approach (ICD-10-PCS; 2022-06-02)
DX: I11.0 Hypertensive heart disease with heart failure (principal); I50.43 Acute on chronic combined systolic (congestive) and diastolic (congestive) heart failure; J96.21 Acute and chronic respiratory failure with hypoxia; I48.92 Unspecified atrial flutter; J44.1 Chronic obstructive pulmonary disease with (acute) exacerbation; I48.91 Unspecified atrial fibrillation; R57.0 Cardiogenic shock; Z51.5 Encounter for palliative care; Z20.822 Contact with and (suspected) exposure to COVID-19; Z66 Do not resuscitate; I25.10 Atherosclerotic heart disease of native coronary artery without angina pectoris; M54.9 Dorsalgia, unspecified; G89.29 Other chronic pain; M54.2 Cervicalgia; F41.9 Anxiety disorder, unspecified; F32.A Depression, unspecified; K21.9 Gastro-esophageal reflux disease without esophagitis; E11.9 Type 2 diabetes mellitus without complications; F41.0 Panic disorder [episodic paroxysmal anxiety]; Z86.73 Personal history of transient ischemic attack (TIA), and cerebral infarction without residual deficits; Z95.5 Presence of coronary angioplasty implant and graft; Z99.81 Dependence on supplemental oxygen; Z91.14 Patient's other noncompliance with medication regimen; Z79.899 Other long term (current) drug therapy; Z91.030 Bee allergy status; Z86.718 Personal history of other venous thrombosis and embolism; Z79.01 Long term (current) use of anticoagulants; Z86.16 Personal history of COVID-19; Z79.4 Long term (current) use of insulin
CPT/HCPCS: 36415; 36556; 36600; 51702; 71045; 71045-26; 77001; 77001-26; 80048; 80053; 80076; 81001; 82803; 82947; 83605; 83735; 83880; 84484; 85025; 85730; 93005; 93010; 93306; 94640; 94660; 99221; 99232; 99233; 99238; A9270-GY; J0282; J1265; J1644; J1940; J2060; J2250; J2270; J2704; J3010; J3490; J7060; J7620-GY; P9047; U0002